=== PATIENT | female | born 1990 | race Caucasian/White ===

== ENCOUNTER 2023-11-01 06:37 | Emergency (ER) | payer OTHER, SELFPAY ==
[2023-11-01 06:41] VITALS: BP 107/82; PULSE 77; RESP 22; TEMP 36.7; O2SAT 100
[2023-11-01 06:46] VITALS: O2SAT 100
--- NOTE | 2023-11-01 06:46 | ED.ALLEREA ---
HPI - Allergic Reaction General Chief complaint: Allergic Reaction Stated complaint: allergic reaction History of Present Illness HPI narrative: Patient presents here with bee sting to her right eyebrow, had yesterday but the swelling has been steadily getting worse. Today she woke up and has been barely able to open her eye. No visual changes. Has been taking ibuprofen and Benadryl and icing her face at home Related Data Allergies Allergy/AdvReac Type Severity Reaction Status Date / Time bee venom protein (honey bee) Allergy Swelling Verified 11/01/23 06:48 cephalexin Allergy Nausea and Verified 11/01/23 06:48 Vomiting ciprofloxacin [From Cipro] Allergy Nausea Verified 11/01/23 06:48 sulfamethoxazole Allergy Nausea Verified 11/01/23 06:48 [From Bactrim] trimethoprim [From Bactrim] Allergy Nausea Verified 11/01/23 06:48 Review of Systems Review of Systems: All systems reviewed & are unremarkable except as noted in HPI and below Exam Narrative: EXAMINATION OF ORGAN SYSTEMS/BODY AREAS: Constitutional: Vital signs per nursing GENERAL:[No acute distress, non-toxic appearing.] HEAD: Normal with no signs of head trauma. EYES: EOMI, periorbital swelling, visual acuity intact ENT: Swelling to right side of face; no swelling of lips or tongue. Normal voice LUNGS: Nonlabored breathing. HEART: [Regular rate and rhythm] ABD: [Soft], [nontender to palpation] EXT: Normal range of motion SKIN: [No rashes or lesions.] NEURO: [Alert and oriented x 3. No gross focal sensory or strength deficits.] PSYCH: Normal affect Course Vital Signs Vital signs: Vital Signs Temperature 98.0 F 11/01/23 06:41 Pulse Rate 77 11/01/23 06:41 Respiratory Rate 22 H 11/01/23 06:41 Blood Pressure 107/82 11/01/23 06:41 Pulse Oximetry 100 11/01/23 06:41 Oxygen Delivery Room Air 11/01/23 06:41 Temperature 98.0 F 11/01/23 06:41 Pulse Rate 77 11/01/23 06:41 Respiratory Rate 22 H 11/01/23 06:41 Blood Pressure 107/82 11/01/23 06:41 Pulse Oximetry 100 11/01/23 06:46 Oxygen Delivery Room Air 11/01/23 06:46 MDM - Allergic Reaction MDM Narrative Medical decision making narrative: MEDICAL DECISION MAKING AND COURSE IN THE ED WITH INTERPRETATION/REVIEW OF DIAGNOSTIC STUDIES: Electronic medical record was reviewed. Patient presented to the ED with a complaint of allergic reaction to bee sting right eyebrow with face swelling. Vitals [were within acceptable limits]. Physical exam revealed [swelling around her right face without evidence of airway compromise, abdominal tenderness, or anaphylaxis; no vision changes, normal EOMI]. [Patient was given Toradol, steroids]. She has not had worsening of symptoms here and is stable for discharge and will go home with loratidine, epipen rx, and prednisone, and followup with PCP, return for further issues. Patient verbalizes understanding. I have asked her to continue using ice and benadryl as much as she can tolerate, and to watch out for any vision changes or difficulty moving her eye or angioedema or anything else concerning. Patient agreeable to this Discharge Plan Discharge Clinical Impression: Allergic reaction to bee sting Patient Disposition: Home, Self-Care Condition: Stable Instructions: Antibiotic Form, Insect Bite or Sting (ED), General Allergic Reaction (ED) Additional Instructions: Continue to ice your face, and continue to take the ibuprofen and Benadryl for your swelling, and start the steroids. If you start noticing any changes to her vision or anything else very concerning, come back to the hospital. Prescriptions: New prednisone 20 mg tablet 40 mg PO DAILY 5 Days Qty: 10 0RF ibuprofen 600 mg tablet 600 mg PO TID PRN (Reason: fever or pain) Qty: 30 0RF loratadine 10 mg tablet 10 mg PO DAILY Qty: 30 0RF epinephrine [EpiPen] 0.3 mg/0.3 mL auto-injector 0.3 mg IM Q5-15M PRN (Reason: anaphylaxis) Qty: 2
[2023-11-01] MEDS: predniSONE 20 MG TABLET 40 MG PO (06:49)
[2023-11-01] MEDS: KETOROLAC 30 MG/ML VIAL (*BKC) 15 MG IM (06:52)
[2023-11-01 07:09] VITALS: BP 109/71; PULSE 75; RESP 16; O2SAT 100
== END 2023-11-01 07:11 | disposition home or self-care (01) ==
PROVIDERS: Emergency Provider Emergency Medicine; PCP Internal Medicine
DX: T63.441A Toxic effect of venom of bees, accidental (unintentional), initial encounter (principal)
CPT/HCPCS: 96372; 99283; J1885; J7512

== ENCOUNTER 2024-05-07 04:21 | Emergency (ER) | payer OTHER, SELFPAY ==
[2024-05-07] VITALS (7 sets, daily range): BP systolic 99–130; BP diastolic 55–64; PULSE 69–104; RESP 13–24; TEMP 36.1–36.8; O2SAT 97–100
--- NOTE | ~2024-05-07 | XR_ITS ---
Portable chest x-ray Comparison: None Clinical History: Seizure Findings: Lungs are clear, without focal consolidation or pleural effusion. Cardiomediastinal silho uette is unremarkable. Bones and soft tissues are unremarkable. Impression: Clear lungs. Reviewed, dictated and finalized at location M. MINER Impression: Clear lungs.
--- NOTE | ~2024-05-07 | CT_ITS ---
Non-contrast Head CT History: Seizure Technique: Axial non-contrast imaging of the brain was performed. Dose reduction technique was used on this scan by utilizing automated exposure control and iterative reconstruction technique. The dose -length product (DLP) was 681.00 mGy-cm. Findings: There is no evidence of intracranial hemorrhage, mass lesion, or acute infarct. Brain par enchyma appears normal. The ventricles and subarachnoid spaces are normal in size. The calvarium ap pears normal. The visualized paranasal sinuses and mastoid air cells are clear. Impression: No significant abnormality seen. Reviewed, dictated and finalized at location . OG DEVICE DESIGNER Impression: No significant abnormality seen.
--- NOTE | 2024-05-07 04:30 | ECG_ITS ---
Test Date: 2024-05-07 05:07:46 Measurements Intervals [place] Rate: 79 P: 49 MA: 176 QRS: 24 QRSD: 93 T: 35 QT: 361 QTc: 414 Interpretive Statements SINUS RHYTHM LOW QRS VOLTAGE IN PRECORDIAL LEADS [QRS DEFLECTION < 1.0 mV IN CHEST LEADS] No previous ECG available for comparison Electronically Signed On 05-07-2024 08:49:18 COMMUNICATIONS TECH by Larisa Mendoza M.D.
[2024-05-07 05:16] LABS: Basophils Percent Auto 0.5 % (0.2-1.2); Eosinophils Absolute Auto 0.1 K/mm3 (0-0.3); Eosinophils Percent Auto 1.4 % (0-4.4); Hematocrit 40.9 % (37.0-47.0); Hemoglobin 13.5 g/dL (12.0-15.0); Immature Granulocyte Absolute 0.02 K/mm3 (0.00-0.031); Immature Granulocyte Percent A 0.2 % (0-0.5); Lymphocytes Absolute Auto 1.57 K/mm3 (0.9-3.2); Lymphocytes Percent Auto 18.3 % (18.3-44.2); Mean Platelet Volume 10.8 fl (7.4-10.4); Monocytes Absolute Auto 0.8 K/mm3 (0.1-0.6); Monocytes Percent Auto 8.9 % (2.6-8.5); Neutrophils Absolute Auto 6.1 K/mm3 (1.3-6.7); Neutrophils Percent Auto 70.7 % (45.5-73.1); Platelet Count Result 258 k/mm3 (150-375); Red Blood Count 4.35 M/mm3 (4.2-5.4); Red Cell Distribution Width 12.7 % (11.5-14.5); White Blood Count 8.6 K/mm3 (4.5-10.0)
[2024-05-07] MEDS: PROCHLORPERAZINE EDISYLATE 10 MG/2 ML VIAL IV PUSH (05:22)
[2024-05-07] MEDS: diphenhydrAMINE HCl INJ 50 MG/ML VIAL 25 MG IV PUSH (05:24)
[2024-05-07 05:27] LABS: INR 0.9; Prothrombin Time 12.6 Seconds (11.1-14.7)
[2024-05-07] MEDS: MAGNESIUM SULF 2 GM/WATER 50ML 2 GM/50 ML BAG IVPB (05:27)
[2024-05-07 05:28] LABS: Partial Thromboplastin Time 24.1 Seconds (22.3-36.8)
[2024-05-07 05:29] LABS: Acetaminophen < 10 ug/mL (10-30); Ethanol < 10 mg/dL (<10); Salicylate < 1.0 mg/dL (2-20)
[2024-05-07] MEDS: SODIUM CHLORIDE 0.9% IV 1,000 ML 999 ML IV CONT ×2 (05:30→06:20)
[2024-05-07 05:31] LABS: Alanine Aminotransferase 22 U/L (6-35); Albumin Level 4.5 g/dL (3.5-5.1); Alkaline Phosphatase 68 U/L (38-126); Anion Gap 1 mmol/L (4-12); Aspartate Amino Transferase 26 U/L (14-36); Bilirubin,Total 0.3 mg/dL (0.2-1.3); Blood Urea Nitrogen 16 mg/dL (7-17); Calcium 9.4 mg/dL (8.4-10.2); Carbon Dioxide 30 mmol/L (22-30); Chloride 105 mmol/L (98-107); Estimated CRCL calculation 101 ml/min; Estimated Glomerular Filt Rate > 60; Glucose 110 mg/dL (65-110); Lactic Acid Reflex 1.4 mmol/L (0.7-2.0); Potassium 4.1 mmol/L (3.4-5.0); Sodium 136 mmol/L (137-145)
[2024-05-07 05:41] LABS: BEDSIDEPREGUCG Negative (Negative)
[2024-05-07 05:46] LABS: Add Urine Microscopic? NO; Appearance Urine Clear (Clear); Bilirubin Urine Negative (Negative); Blood Urine Negative (Negative); Color Urine Yellow (Yellow); Glucose Urine UA Negative (Negative); Ketones Urine Negative (Negative); Leukocyte Esterase Ur Negative LEU/UL (Negative); Nitrate Urine Negative (Negative); Protein Urine Negative (Negative); Specific Grav Ur 1.019 (1.001-1.035); Urobilinogen Urine 0.2 mg/dL (<2.0); pH Urine 7.5 (5.0-9.0)
--- NOTE | 2024-05-07 05:46 | ED.SEIZURE ---
HPI - Seizure General Chief Complaint: Seizure Stated Complaint: Sz Time Seen by Provider: 05/07/24 04:31 History of Present Illness HPI Narrative: 33-year-old female presenting to the emergency department via private vehicle accompanied by her . Her noted that in the middle night patient looked like she was having a seizure with foaming at the mouth, unresponsiveness, shaking of the bilateral upper extremities. They went to bed appropriately without any concerns and there were no recent injuries or illnesses. Patient herself had a postictal period and the laid the patient the ground who continued to shake for about 3-5 minutes. Seizure was self aborted and she had a brief postictal period of approximately 10-15 minutes before returning to consciousness and was able to verbalize albeit confused. Her mentation overall improved since her arrival here in the emergency department. She is at her baseline mentation and answering all questions appropriately. She is complaining of a headache and some nauseousness but denies any fever, chills, chest pain, shortness a breath, abdominal pain. No recent injuries or trauma. She denies any medication changes. She states that she does check her sugars at home even though she is not diabetic and noted that was low throughout the night in the 50's. She does not take any insulin or any kind medications for weight loss or any kind of injectables. Denies any recent stressors or regimen changes, no history of seizures or history of childhood epilepsy or any kind of febrile seizures in childhood. Related Data Allergies Allergy/AdvReac Type Severity Reaction Status Date / Time bee venom protein (honey bee) Allergy Swelling Verified 05/07/24 04:21 cephalexin Allergy Nausea and Verified 05/07/24 04:21 Vomiting ciprofloxacin (From Cipro) Allergy Nausea Verified 05/07/24 04:21 sulfamethoxazole (From Allergy Nausea Verified 05/07/24 04:21 Bactrim) trimethoprim (From Bactrim) Allergy Nausea Verified 05/07/24 04:21 Review of Systems Review of Systems: As reviewed above in HPI Exam Narrative: GENERAL: [Well-appearing, well-nourished, and in no acute distress.] HEAD: [Normocephalic, atraumatic.] EYES: [PERRLA and EOMI.] ENT: Nares clear, no rhinorrhea or epistaxis. Mucous membranes moist. NECK: Supple. CHEST: Normal respiratory effort HEART: [Regular rate and rhythm]. No murmur heard. [Normal peripheral pulses.] ABDOMEN: [Soft, nondistended], [nontender], [No rigidity or guarding] EXTREMITIES: Normal range of motion. [No edema.] SKIN: Warm, dry, no rash. NEURO: [No focal deficits]. Alert and oriented [x3.] Normal strength and sensation throughout both arms and legs. Answering all questions appropriately. No ataxia, extraocular movements are full, no nystagmus. PSYCH: [Normal mood and affect.] Course Vital Signs Vital signs: Vital Signs Temperature 36.1 C L 05/07/24 04:25 Pulse Rate 97 05/07/24 04:25 Respiratory Rate 20 05/07/24 04:25 Blood Pressure 115/63 05/07/24 04:25 Pulse Oximetry 97 05/07/24 04:25 Oxygen Delivery Room Air 05/07/24 04:25 Temperature 36.1 C L 05/07/24 04:25 Pulse Rate 76 05/07/24 06:41 Respiratory Rate 13 05/07/24 06:41 Blood Pressure 104/55 L 05/07/24 06:41 Pulse Oximetry 100 05/07/24 06:41 Oxygen Delivery Room Air 05/07/24 05:36 MDM - Seizure MDM Narrative Medical decision making narrative: 33-year-old female with no history of seizures or childhood epilepsy presenting to the emergency department with sounds to be a witnessed seizure that lasted several minutes and had a postictal period. She is awake alert oriented at her baseline mentation presently and has no concerns aside from headache and mild nauseousness. Denies any recent injuries or illnesses, no provoking triggers to attribute to her seizure activity today and she went to bed normally yesterday. She has an unremarkable examination with normal vital signs without any fever, hypoxia, tachypnea, tachycardia or blood pressure concerns. Unremarkable neurological assessment and she is at her baseline mentation presently which is normal. Given this is a first-time seizure we did order a broad workup including a CT head, chest x-ray, EKG, electrolyte profile, CMP, test, urine drug screen, toxicological panel. Given patient's return to baseline mentation overall well appearance about her with no significant triggers or suspected epilepsy I believe she would be able to be discharged home upon completion workup if nothing acute is to be found. I informed the family of this plan of care and we went ahead with workup. Patient was re-evaluated frequently and had improvement in her headache after medications and fluids. I went over the lab results in the imaging results with the patient and the at bedside and although she does very reassuring workup and no acute findings or triggers that I could identify her assessment I believe she would benefit from an outpatient neurology evaluation given that her clinical presentation based on the 's recollection of events raise much sounds like a first-time seizure. I have very low suspicion that she is susceptible for recurrence of her seizure given her unremarkable workup and no acute findings today and I discussed this with the family and the patient as well. Ultimately after a multiple hour observation here in the emergency department without any recurrence of her symptoms and clinical improvement with unremarkable workup and stable vitals I believe she is stable for discharge home with outpatient Neurology follow-up instructions. I discussed this with the family and the patient and they were agreeable with this plan of care and felt comfortable going home with this plan in mind. I gave them strict return precautions including any recurrence of the seizure any new or worsening symptoms or any other concerns that they have and they can always get repeat evaluation here in the emergency department. Will provide neurology outpatient resources and follow-up instructions and they are stable for discharge at this time. Medical Records Attestation: I reviewed the patient's medical records. Lab Data Attestation: I reviewed the patient's lab results. Lab results narrative: No leukocytosis, normal electrolytes, negative test, negative toxicological screen, normal renal and hepatic function panel. 05/07/24 05:10 05/07/24 05:10 Labs: Lab Results 05/07/24 05/07/24 Range/Units 05:10 05:36 WBC 8.6 (4.5-10.0) K/mm3 RBC 4.35 (4.2-5.4) M/mm3 Hgb 13.5 (12.0-15.0) g/dL Hct 40.9 (37.0-47.0) % MCV 94.0 (80-100) fl MCH 31.0 (26-34) pg MCHC 33.0 (32-36) g/dl RDW 12.7 (11.5-14.5) % Plt Count 258 (150-375) k/mm3 MPV 10.8 H (7.4-10.4) fl Immature Gran % (Auto) 0.2 (0-0.5) % Neut % (Auto) 70.7 (45.5-73.1) % Lymph % (Auto) 18.3 (18.3-44.2) % [place] % (Auto) 8.9 H (2.6-8.5) % Eos % (Auto) 1.4 (0-4.4) % Baso % (Auto) 0.5 (0.2-1.2) % Lymph # (Auto) 1.57 (0.9-3.2) K/mm3 [place] # (Auto) 0.8 H (0.1-0.6) K/mm3 Eos # (Auto) 0.1 (0-0.3) K/mm3 Baso # (Auto) 0.0 (0.0-0.1) K/mm3 Abs Immat Gran (auto) 0.02 (0.00-0.031) K/mm3 Absolute Neuts (auto) 6.1 (1.3-6.7) K/mm3 Absolute Nucleated RBC 0.000 (0.0-0.012) K/mm3 Nucleated RBC % 0.0 (0.0-0.2) % PT 12.6 (11.1-14.7) Seconds INR 0.9 APTT 24.1 (22.3-36.8) Seconds Sodium 136 L (137-145) mmol/L Potassium 4.1 (3.4-5.0) mmol/L Chloride 105 (98-107) mmol/L Carbon Dioxide 30 (22-30) mmol/L Anion Gap 1 L (4-12) mmol/L BUN 16 (7-17) mg/dL Creatinine 0.70 (0.7-1.0) mg/dL Estim Creat Clear Calc 101 ml/min Estimated GFR > 60 (59 - ) Glucose 110 (65-110) mg/dL Lactic Acid 1.4 (0.7-2.0) mmol/L Calcium 9.4 (8.4-10.2) mg/dL Total Bilirubin 0.3 (0.2-1.3) mg/dL AST 26 (14-36) U/L ALT 22 (6-35) U/L Alkaline Phosphatase 68 (38-126) U/L Total Creatine Kinase 138 H (30-135) U/L Total Protein 7.0 (6.3-8.2) g/dL Albumin 4.5 (3.5-5.1) g/dL TSH 2.570 (0.465-4.680) uIU/mL Urine Color Yellow (Yellow) Urine Appearance Clear (Clear) Urine pH 7.5 (5.0-9.0) Ur Specific [place] 1.019 (1.001-1.035) Urine Protein Negative (Negative) mg/dL Urine Glucose (UA) Negative (Negative) mg/dL Urine Ketones Negative (Negative) mg/dL Ur Blood (Man) Negative (Negative) Urine Nitrate Negative (Negative) Urine Bilirubin Negative (Negative) Urine Urobilinogen 0.2 (<2.0) mg/dL Leukocyte Esterase Rfl Negative (Negative) ANETTE/UL POC Urine HCG, Qual Negative (Negative) Salicylates < 1.0 L (2-20) mg/dL Urine Opiates Screen Negative (Negative) Urine Methadone Screen Negative (Negative) Acetaminophen < 10 L (10-30) ug/mL Ur Barbiturates Screen Negative (Negative) Ur Phencyclidine Scrn Negative (Negative) Ur Amphetamine Screen Negative (Negative) U Benzodiazepines Scrn Negative (Negative) Urine Cocaine Screen Negative (Negative) U Cannabinoids Screen Positive A (Negative) Ethyl Alcohol < 10 (<10) mg/dL Imaging Data Attestation: I personally reviewed and interpreted this imaging study as follows: My impression: Impressions Chest X-Ray 05/07/24 06:47 Impression: Clear lungs. Head CT 05/07/24 06:47 Impression: No significant abnormality seen. Discharge Plan Discharge Clinical Impression: Seizure Patient Disposition: Home, Self-Care Condition: Stable Instructions: Antibiotic Form, New-Onset Seizure in Adults (ED) Additional Instructions: Your workup today is very reassuring and I do not have any evidence that there is a trigger for your seizure and you have a low likelihood of having any kind of recurrence however we do need her to follow-up with the neurologist on outpatient basis which will refer you to. If you have any recurrence or any new or worsening concerns at any time please seek re-evaluation but at this time your stable for discharge. Please refrain from operating motor vehicles until cleared by Neurology or your regular doctor. Patient Language: Hebrew Prescriptions: No Action prednisone 20 mg tablet 40 mg PO DAILY 5 Days Qty: 10 0RF ibuprofen 600 mg tablet 600 mg PO TID PRN (Reason: fever or pain) Qty: 30 0RF loratadine 10 mg tablet 10 mg PO DAILY Qty: 30 0RF epinephrine [EpiPen] 0.3 mg/0.3 mL auto-injector 0.3 mg IM Q5-15M PRN (Reason: anaphylaxis) Qty: 2 0RF Rx Instructions: do not exceed 3 doses per episode Follow-up/Referrals: Gretel,Gadiel Abarca MD [Primary Care Provider] - Manny Stephenson MD [Physician] - 3 Days (First-time seizure, adult onset) Juan Fuentes MD [Physician] - 3 Days (First-time seizure, adult onset) Time of Disposition: 07:55
[2024-05-07 05:52] LABS: Creatine Kinase 138 U/L (30-135)
[2024-05-07 06:03] LABS: Amphetamine Screen Urine Negative (Negative); Barbiturate Screen Urine Negative (Negative); Benzodiazepines Screen Urine Negative (Negative); Cannabinoid Screen Urine Positive (Negative); Cocaine Screen Urine Negative (Negative); Methadone Screen Urine Negative (Negative); Opiate Screen Urine Negative (Negative); Phencyclidine Screen Urine Negative (Negative)
--- NOTE | 2024-05-07 07:19 | PC.NURSE ---
Assumed care of pt. waiting on dispo
--- OUTSIDE RECORDS SUMMARY | 2024-05-11 14:52 | XMS_ITS | Referral Summary ---
Author Organization [facility] Address [address] [place] [address] Care Team Providers Care Psychic Reader Name Role Phone Gadiel Majano MD Primary Care Provider + Kishorlizandrosharishilo Niki Katherin DO Unavailable [phone] Allergies Active Allergy Reactions Criticality Noted Date Comments Cephalexin Nausea And Vomiting Low 09/02/2011 Ciprofloxacin Nausea And Vomiting Low 09/02/2011 Nitrofurantoin Nausea & Vomiting Low 09/22/2021 Sulfa (Sulfonamide Antibiotics) Nausea & Vomiting Low 09/22/2021 Medications miSOPROStoL (CYTOTEC) 200 mcg tablet 2 tablets buckel at bedtime the evening prior to procedure 2 tablet 4 Active Additional Information Patient not taking.Reported on 07/19/2023 lactic uabc-[id number]-fhq assium (Phexxi) 1.8-1-0.4 % gel vaginal gel Insert 5 g into the vagina as needed (insert into vagina prior to intercourse) 60 g 3 4 Active Additional Information Patient not taking.Reported on 08/16/2023 ibuprofen (ADVIL,MOTRIN) 600 mg tablet Take 1 tablet (600 mg total) by mouth every 6 (six) hours as needed for pain 20 tablet 4 Active Additional Information Patient not taking.Reported on 08/16/2023 Active Problems Problem Noted Date Diagnosed Date Tear of ulnar collateral ligament of left elbow 11/30/2016 Flexion contracture of left elbow 11/30/2016 Neuritis of left ulnar nerve 11/30/2016 Social History Tobacco Use Types Packs/Day Years Used Date Smoking Tobacco: Former Cigarettes Passive Smoke Exposure: Past Smokeless Tobacco: Never Tobacco Cessation:Counseling Given: Not Answered Alcohol Use Standard Drinks/Week Comments No 0 (1 standard drink = 0.6 oz pur e alcohol) Personal Safety Answer Date Recorded Getting School Help Needed Not on file 06/17 Comments No Sex and Gender Information Value Date Recorded Sex Assigned at Not on file Legal Sex 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 FINANCIAL SERVICES SPECIALIST Gender Identity Not on file Sexual Orientation Not on file Last Filed Vital Signs Vital Sign Reading Time Taken Comments Blood Pressure 115/84 08/16/2023 1:58 PM CDT Pulse 73 05/30/2022 1:45 PM FINANCIAL SERVICES SPECIALIST Temperature 36.5 ??C (97.7 ??F) 05/30/2022 11:[address] Respiratory Rate 15 05/30/2022 1:45 PM FINANCIAL SERVICES SPECIALIST Oxygen Saturation 100% 05/30/2022 1:45 PM FINANCIAL SERVICES SPECIALIST Inhaled Oxygen Concentration - - Weight 84.4 kg (186 lb) 08/16/2023 1:58 PM CDT Height 165.1 cm (5' 5 ) 08/16/2023 1:58 PM CDT Body Mass Index 30.95 08/16/2023 1:58 PM CDT Plan of Treatment Not on file Procedures Procedure Name Priority Date/Time Associated Diagnosis Comments THINPREP IMAGING PAP AND HPV MRNA E6/E7 REFLEX HPV 16,18/45 Routine 07/12/2023 4:23 PM FINANCIAL SERVICES SPECIALIST Encounter for well woman exam from Last 3 Months or Most Recently Relevant to Health Maintenance Results * ThinPrep(R) Imaging Pap and HPV mRNA E6/E7 Reflex HPV 16,18/45 (07/12/2023 4:23 PM FINANCIAL SERVICES SPECIALIST) CLINICAL INFORMATION: [facility] Comment:None given LMP [facility] Comment:NONE GIVEN Previous Pap [facility] Comment:NONE GIVEN Prev. Bx [facility] Comment:NONE GIVEN SOURCE: [facility] Comment:None given Pap, specimen adequacy [facility] Comment: Satisfactory for evaluation. Endocervical/transformation zone component present. Age and/or menstrual status not provided HPV interp [facility] Comment: Cytology Results: Negative for intraepithelial lesion or malignancy. COMMENTS [facility] Comment: This Pap test has been evaluated with computer assisted technology. Concrete Pile Driver Operator [facility] Comment: TLS, CT(ASCP) CT Screening Location: [address] [address] Comment [facility] Comment: EXPLANATORY NOTE: The Pap is a screening test for cervical cancer. It is not a diagnostic test and is subject to false negative and false positive results. It is most reliable when a satisfactory sample, regularly obtained, is submitted with relevant clinical findings and history, and when the Pap result is evaluated along with historic and current clinical information. Human papillomavirus RNA, High Risk E6/E7 Not Detected Not Detected [facility] Comment: Methodology: Critical Care Paramedic-Mediated Amplification This assay detects E6/E7 viral messenger RNA (mRNA) from 14 high-risk HPV types (16,18,31,33,35,39,45,51,52,56,58,59,66,68). Cervical sources are required for HPV testing. If a vaginal source from a patient who has had a total hysterectomy with removal of cervix was submitted, please contact the testing laboratory for alternative testing options. For additional information, please refer to http://education.Veracyte/faq/DCO598x1 (This link if provided for information/ educational purposes only.) Swab 07/12/2023 4:23 PM FINANCIAL SERVICES SPECIALIST 07/13/2023 4:57 AM FINANCIAL SERVICES SPECIALIST Erica Nayak NP LAB CYTOLOGY ORDERABLES Final Result [address] [place] [address] [facility] [address] [phone] from Last 3 Months or Most Recently Relevant to Health Maintenance Insurance [facility] CHOICE [employer] [facility] HMO/PPO Address: [address] [address] [place] [address] [facility] CHOICE [employer]US [facility] HMO/PPO Address: [address] [address] [place] [address] [facility] CHOICE PLUS [facility] H[facility]/PPO Address: [address] [address] [place] [address] ANTH ACCESS CHOICE Care Teams Psychic Reader Relationship Specialty Start Date End Date Gadiel Majano MD [address] [place] [address] PCP - General 07/06/16 [place] [address] [place] [address] Consulting Physician Obstetrics and Gynecology 07/26/23
--- OUTSIDE RECORDS SUMMARY | 2024-05-11 14:52 | XMS_ITS | Referral Summary ---
Author Organization [facility] Address [address] [place] [address] Care Team Providers Care Rubbish Collection Supervisor Name Role Phone Unavailable Primary Care Provider Unavailabl e Source Comments [facility],non-owned Affiliates and Associated Physician Practices is amultiple site organization consisting of ambulatory clinics and hospital sitesin [place], [place], [place] and [place]. This disclosure is being madepursuant to the Care Everywhere program and may not contain all information available regarding this patient. Last updated 18.[facility] Social History Tobacco Use Types Packs/Day Years Used Date Smoking Tobacco: Never Assessed Sex and Gender Information Value Date Recorded Sex Assigned at Not on file Gender Identity Not on file Sexual Orientation Not on file Plan of Treatment Not on file
--- OUTSIDE RECORDS SUMMARY | 2024-05-11 14:52 | XMS_ITS | Encounter Summary ---
Author Organization [facility] Address [address] [place] [address] Care Team Providers Care Support Specialist Name Role Phone Gadiel Majano MD Primary Care Provider + Encounter Details Date Type Department Care Team (Late st Contact Info) Description 07/23/2023 Documentation [facility] [address] [phone] Zohra Rodriguez Social History Tobacco Use Types Packs/Day Years Used Date Smoking Tobacco: Former Cigarettes Passive Smoke Exposure: Past Smokeless Tobacco: Never Alcohol Use Standard Drinks/Week Comments No 0 (1 standard drink = 0.6 oz pur e alcohol) Personal Safety Answer Date Recorded Getting School Help Needed Not on file 06/17 Comments No Sex and Gender Information Value Date Recorded Sex Assigned at Not on file Legal Sex 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 FIRST AID TEACHER Gender Identity Not on file Sexual Orientation Not on file documented as of this encounter Progress Notes * Zohra Rodriguez - 07/23/2023 11:22 AM CST Surgery has been moved to 10am on 07/27/23. T AID TEACHER documented in this encounter Plan of Treatment Not on file documented as of this encounter Visit Diagnoses Not on filedocumented in this encounter Care Teams Support Specialist Relationship Specialty Start Date End Date Gadiel Majano MD [address] [place] [address] [address] [phone] PCP - General 07/06/16 documented as of this encounter
--- OUTSIDE RECORDS SUMMARY | 2024-05-11 14:52 | XMS_ITS | Encounter Summary ---
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 Encounter Details Date Type Department Care Team (Latest Contact Info) Description 07/19/2023 2:00 PM DENTAL ASSOCIATE Procedure visit [facility] [address] [phone] Niki Jones, [address] [place] [address] Intrauterine contraceptive device threads lost, initial encounter (Primary Dx) Social History Tobacco Use Types Packs/Day Years [...] on file Legal Sex 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 DENTAL ASSOCIATE Gender Identity Not on file Sexual Orientation Not on file documented as of this encounter Last Filed Vital Signs Vital Sign Reading Time Taken Comments Blood Pressure 112/78 07/19/2023 2:20 PM DENTAL ASSOCIATE Pulse - - Temperature - - Respiratory Rate - - Oxygen Saturation - - Inhaled Oxygen Concentration - - Weight 84.8 kg (187 lb) 07/19/2023 2:20 PM DENTAL ASSOCIATE Height 165.1 cm (5' 5 ) 07/19/2023 2:20 PM DENTAL ASSOCIATE Body Mass Index 31.12 07/19/2023 2:20 PM DENTAL ASSOCIATE documented in this encounter Progress Notes * Niki Jones DO - 07/19/2023 2:00 PM CST Problem Visit SUBJECTIVE HPI: Trinh Corral is a 32 y.o. female who presents for disposition of IUD strings. Rv'd TVUSwith patient, IUD appears in appropriate position in endometrial cavity. Patient has discomfort with sitting or exercising since attempting to remove IUD in office. Review of Systems: Review of systems negative except for pertinent positive and negative in HPI OBJECTIVE Physical Exam: BP 112/78 Ht 165.1 cm (5' 5 ) Wt 187 lb (84.8 kg) BMI 31.12 kg/m?? General: Well appearing, No pain or distress, well nourished Neck: Supple Respiratory: Respirations unlabored Gastrointestinal: soft, non-tender abdomen, no masses palpable Cervix: IUD 3mm from os with cervical tissue around IUD strings Extremities: no cyanosis or clubbing or edema Musculoskeletal: no obvious joint deformities Skin: no obvious rash or bruising Psychiatric: normal affect Neurologic: awake/alert, no focal deficits ASSESSMENT / PLAN Trinh Corral is a 32 y.o. female IUD strings disposition Discuss attempting to remove IUD in office vs with sedation. Patient declined removal today. Niki Jones DO 07/26/2023 AL ASSOCIATE documented in this encounter Plan of Treatment Not on file documented as of this encounter Visit Diagnoses Diagnosis Intrauterine contraceptive device threads lost, initial encounter- Primary documented in this encounter Care Teams Export Documents Clerk Relationship Specialty Start Date End Date Gadiel Majano MD [address] [facility] [place] [address] PCP - General 07/06/16 documented as of this encounter
--- OUTSIDE RECORDS SUMMARY | 2024-05-11 14:52 | XMS_ITS | Encounter Summary ---
Author Organization [facility] Address [address] [place] [address] Care Team Providers Care Casing Crew Pusher Name Role Phone Gadiel Majano MD Primary Care Provider + Niki Jones DO Unavailable [phone] Reason for Visit * Reason Onset Date Comments Excision of cervical tissue and IUD removal-DPSS C, 07/27/23 07/29/2023 Encounter Details Date Type Department Care Team (Late st Contact Info) Description 07/29/2023 Documentation [facility] [address] [phone] [place] [address] [place] [address] Excision of cervical tissue and IUD removal-[facility]PSSC, 07/27/23 Social History Tobacco Use Types Packs/Day Years [...] on file 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 Reviewed procedure and risks at length with patient. Answered all questions. Verbal and written consent given. Excision of cervical tissue and IUD removal. [id number] cervical tissue incasing IUD strings. No complications. RTO in 2 weeks. L FABRICATING SUPERVISOR documented in this encounter Plan of Treatment Not on file documented as of this encounter Visit Diagnoses Not on filedocumented in this encounter Care Teams Casing Crew Pusher Relationship Specialty Start Date End Date Gadiel Majano MD [address] [place] [phone] PCP - General 07/06/16 [place] [address] [place] [address] Consulting Physician Obstetrics and Gynecology 07/26/23 documented as of this encounter
--- OUTSIDE RECORDS SUMMARY | 2024-05-11 14:52 | XMS_ITS | Encounter Summary ---
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 Gender Identity Not on file Sexual Orientation Not on file documented as of this encounter Ordered Prescriptions Prescription Sig Dispense Quantity Refills Last Filled Start Date End Date ibuprofen (ADVIL,MOTRIN) 600 mg tablet Take 1 tablet (600 mg total) by mouth every 6 (six) hours as needed for pain 20 tablet 07/27/2023 lactic ncjh-imbppf-poahmkq um (Phexxi) 1.8-1-0.4 % gel vaginal gel Insert 5 g into the vagina as needed (insert into vagina prior to intercourse) 60 g 3 07/27/2023 documented in this encounter Plan of Treatment Not on file documented as of this encounter Visit Diagnoses Not on filedocumented in this encounter Discontinued Medications Medication Sig Discontinue Reason Start Date End Da te lactic iyks-lvrubj-bfzshmdua (Phexxi) 1.8-1-0.4 % gel vaginal gel Insert 5 g into the vagina as needed (insert into vagina prior to intercourse) Reorder 07/12/2023 07/27/2023 documented as of this encounter Care Teams Emergency Care Attendant Relationship Specialty Start Date End Date Gadiel Majano MD [address] [place] [phone] PCP - General 07/06/16 [place] [address] [place] [address] Consulting Physician Obstetrics and Gynecology 07/26/23 documented as of this encounter
--- OUTSIDE RECORDS SUMMARY | 2024-05-11 14:52 | XMS_ITS | Patient Health Summary ---
Author Organization [facility] Address [address] [place] [address] Care Team Providers Care Rehab Nurse Name Role Phone Unavailable Primary Care Provider Unavailabl e Note from [facility],non-owned Affiliates and Associated Physician Practices is amultiple site organization consisting of ambulatory clinics and hospital sitesin [place], [place], [place] and [place]. This disclosure is being madepursuant to the Care Everywhere program and may not contain all information available regarding this patient. Last updated 18.[facility] Social History Tobacco Use Types Packs/Day Years Used Date Smoking Tobacco: Never Assessed Sex and Gender Information Value Date Recorded Sex Assigned at Not on file Gender Identity Not on file Sexual Orientation Not on file Procedures * DERMATOPATHOLOGY(Performed 11/16/2019) Results * DERMATOPATHOLOGY (11/16/2019 12:00 AM CDT) Case Report Dermatopathology Report ? Case: [id number] ? Authorizing Provider: ??Nano Cohen MD ?? Collected: ? 11/16/2019 12:00 AM ? Ordering Location: ? [facility] ?Received: ?11/17/2019 02:38 PM ? Pathologist: ? Katherin Rodriguez MD ? Specimens: ?? A) - Skin, right anterior lateral proximal upper arm ? B) - Skin, right lateral superiior chest ? C) - Skin, left lateral superior chest ? 0 3:03 PM CDT DERMATOPATHOLOGY LABORATORY Final Diagnosis Specimen A. SKIN, right anterior lateral proximal upper arm: LENTIGO SIMPLEX (L81.4) Specimen B. SKIN, right lateral superiior chest: JUNCTIONAL MELANOCYTIC NEVUS, IRRITATED (D22.5) (see microscopic description) Specimen C. SKIN, left lateral superior chest: JUNCTIONAL MELANOCYTIC NEVUS, IRRITATED (D22.5) (see microscopic description) 0 3:03 PM CDT DERMATOPATHOLOGY LABORATORY Clinical History A-C: Atypical nevi. 0 3:03 PM CDT DERMATOPATHOLOGY LABORATORY Gross Description Specimen A: Received is one formalin filled container labeled with the patient's name and designated right anterior lateral proximal upper arm. The specimen consists of a punch biopsy measuring 3x3x4 mm. Jar 0. Specimen B: Received is one formalin filled container labeled with the patient's name and designated right lateral superiior chest. The specimen consists of a punch biopsy measuring 3x3x2 mm. Jar 0. Specimen C: Received is one formalin filled container labeled with the patient's name and designated left lateral superior chest. The specimen consists of a punch biopsy measuring 3x3x3 mm. Jar 0. 0 3:03 PM CDT DERMATOPATHOLOGY LABORATORY Microscopic Description Specimen A. SKIN, right anterior lateral proximal upper arm: There is orthokeratosis. There is increased pigmentation along the basal layer of the epidermis, especially at the base of the elongated rete ridges. A mildly increased number of melanocytes is seen along the basal layer. Specimen B. SKIN, right lateral superiior chest: There are nests of melanocytes at the dermal-epidermal junction. There is melanin pigment in the stratum corneum. Additional deeper sections were obtained and reviewed. Specimen C. SKIN, left lateral superior chest: There are nests of melanocytes at the dermal-epidermal junction. There is melanin pigment in the stratum corneum. Additional deeper sections were obtained and reviewed. 0 3:03 PM CDT DERMATOPATHOLOGY LABORATORY Disclaimer An external and internal positive and negative controls are appropriate for the histochemical, immunohistochemical and immunofluorescence stain(s) in this case (if any), except where stated explicitly. The performance characteristics of the stain(s) cited in this report were developed and its performance characteristic determined by the Dermatopathology Laboratory at [facility], directed by Dr. Rima Hackett. These tests need not be, and therefore are not, approved by the [place] Food and Drug Administration. The tests are used for clinical purposes. Billing Codes Specimen Charges Stain Charges 47503 25334 23836 1 1 1 0 3:03 PM CDT DERMATOPATHOLOGY LABORATORY Embedded Images 0 3:03 PM CDT DERMATOPATHOLOGY LABORATORY Pathology/Cytology TISSUE SPECIMEN FROM SKIN / Unknown 11/16/2019 11/17/2019 2:38 PM CDT Miscellaneous samples (specimen) TISSUE SPECIMEN FROM SKIN / Unknown 11/16/2019 11/17/2019 2:38 PM CDT Miscellaneous samples (specimen) TISSUE SPECIMEN FROM SKIN / Unknown 11/16/2019 11/17/2019 2:38 PM CDT Nano Cohen MD LAB - PATHOLOGY/C YTOLOGY ORDERABLES DERMATOPATHOLOGY LABORATORY [facility] - Department of Dermatology Boat Tender [place]/[address] [phone]
--- OUTSIDE RECORDS SUMMARY | 2024-05-11 14:52 | XMS_ITS | Encounter Summary ---
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 PSYCHOLOGIST documented in this encounter Plan of Treatment Not on file documented as of this encounter Visit Diagnoses Not on filedocumented in this encounter Care Teams Radiological Equipment Specialist Relationship Specialty Start Date End Date Gadiel Majano MD [address] [place] [address] PCP - General 07/06/16 documented as of this encounter
--- OUTSIDE RECORDS SUMMARY | 2024-05-11 14:52 | XMS_ITS | Encounter Summary ---
Author Organization [facility] Address [address] [place] [address] Care Team Providers Care Staff Accountant Name Role Phone Gadiel Majano MD Primary Care Provider + Encounter Details Date Type Department Care Team (Late st Contact Info) Description 07/13/2023 Telephone [facility] [address] [phone] Veronica Krishna RN Social History Tobacco Use Types Packs/Day Years [...] on file Legal Sex 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 CLERK GUIDE Gender Identity Not on file Sexual Orientation Not on file documented as of this encounter Miscellaneous Notes * Telephone Encounter - Veronica Krishna RN - 07/13/2023 9:04 AM CLERK GUIDE Pt is calling with questions about cytotec and IUD removal. Questions answered and reviewed how to take cytotec and what to expect. Pt encouraged to call back with any further questions. K GUIDE documented in this encounter Plan of Treatment Not on file documented as of this encounter Visit Diagnoses Not on filedocumented in this encounter Care Teams Staff Accountant Relationship Specialty Start Date End Date Gadiel Majano MD [address] [place] [address] PCP - General 07/06/16 documented as of this encounter
--- OUTSIDE RECORDS SUMMARY | 2024-05-11 14:52 | XMS_ITS | Encounter Summary ---
Author Organization [facility] Address [address] [place] [address] Care Team Providers Care Ep Tech Name Role Phone Gadiel Mjaano MD Primary Care Provider + Niki Jones DO Unavailable [phone] Reason for Visit * Reason Comments Follow-up Encounter Details Date Type Department Care Team (Latest Contact Info) Description 08/16/2023 2:00 PM CDT Office Visit [facility] [address] [phone] [place] [address] [place] [address] Intrauterine contraceptive device threads lost, subsequent encounter (Primary Dx) Social History Tobacco Use [...] on file 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 female who presents for post op visit. She had excision of cervical tissue to remove IUD at [facility] on 07/26. She had bleeding for one day. Minimal pain Review of Systems: Review of systems negative except for pertinent positive and negative in HPI OBJECTIVE Physical Exam: BP 115/84 Ht 165.1 cm (5' 5 ) Wt 186 lb (84.4 kg) BMI 30.95 kg/m?? General: Well appearing, No pain or distress, well nourished Neck: Supple Respiratory: Respirations unlabored Gastrointestinal: soft, non-tender abdomen, no masses palpable Cervix: well healed Extremities: no cyanosis or clubbing or edema Musculoskeletal: no obvious joint deformities Skin: no obvious rash or bruising Psychiatric: normal affect Neurologic: awake/alert, no focal deficits A forensic identification specialist was offered and declined ASSESSMENT / PLAN Trinh Corral is a 32 y.o. female Cervical tissue IUD removed Niki Jones DO 08/16/2023 documented in this encounter Plan of Treatment Not on file documented as of this encounter Visit Diagnoses Diagnosis Intrauterine contraceptive device threads lost, subsequent encounter- Primary documented in this encounter Care Teams Ep Tech Relationship Specialty Start Date End Date Gadiel Majano MD [address] [place] [address] PCP - General 07/06/16 [place] [address] [place] [address] Consulting Physician Obstetrics and Gynecology 07/26/23 documented as of this encounter
--- OUTSIDE RECORDS SUMMARY | 2024-05-11 14:52 | XMS_ITS | Clinical Summary ---
Author Organization [facility] Address [address] [facility] [place] [address] Care Team Providers Care Oil Sales And Service Rep Name Role Phone Unavailable Primary Care Provider Unavailabl e Source Comments [facility],non-owned Affiliates and Associated Physician Practices is amultiple site organization consisting of ambulatory clinics and hospital sitesin [place], [place], [place] and [place]. This disclosure is being madepursuant to the Care Everywhere program and may not contain all information available regarding this patient. Last updated 18.[facility] [employer] Social History Tobacco Use Types Packs/Day Years Used Date Smoking Tobacco: Never Assessed Sex and Gender Information Value Date Recorded Sex Assigned at Not on file Gender Identity Not on file Sexual Orientation Not on file Plan of Treatment Health Maintenance Due Date Last Done Comments PAP SMEAR 1990 HIV SCREENING 2005 HEPATITIS C SCREENING 08/19/2008 DTAP/TDAP/TD VACCINES (1 - Tdap) 2009 HEPATITIS B VACCINE (1 of 3 - 19+ 3-dose series) 2009 DEPRESSION SCREENING 05/24/2023 COVID-19 VACCINE (1 - 2023-2 5 season) 2024 INFLUENZA VACCINE (#1) 2024 ZOSTER VACCINE (1 of 2) 2040 HIB VACCINE Aged Out No longer eligi ble based on patient's age to complete this topic HPV VACCINE Aged Out No longer eligi ble based on patient's age to complete this topic MENINGOCOCCAL VACCINE Aged Out No kasey apolinar eligible based on patient's age to complete this topic PNEUMOCOCCAL VACCINE Aged Out No long er eligible based on patient[place] [address] NINO MARISCAL Personal/Famil y Other [address] [place] [address]
--- OUTSIDE RECORDS SUMMARY | 2024-05-11 14:52 | XMS_ITS | Encounter Summary ---
Author Organization [facility] Address [address] [place] [address] Care Team Providers Care Pediatric Psychologist Name Role Phone Gadiel Majano MD Primary Care Provider + Encounter Details Date Type Department Care Team (Late st Contact Info) Description 07/22/2023 Telephone [facility] [address] [phone] [place] [address] [place] [address] Social History Tobacco Use Types Packs/Day Years [...] on file Legal Sex 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 SENIOR PRINCIPAL Gender Identity Not on file Sexual Orientation Not on file documented as of this encounter Miscellaneous Notes * Telephone Encounter - Niki Jones DO - 07/22/2023 9:20 AM SENIOR PRINCIPAL LVM for patient OR PRINCIPAL documented in this encounter Plan of Treatment Not on file documented as of this encounter Visit Diagnoses Not on filedocumented in this encounter Care Teams Pediatric Psychologist Relationship Specialty Start Date End Date Gadiel Majano MD [address] [place] [address] PCP - General 07/06/16 documented as of this encounter
--- OUTSIDE RECORDS SUMMARY | 2024-05-11 14:52 | XMS_ITS | Encounter Summary ---
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 CLERK documented in this encounter Plan of Treatment Not on file documented as of this encounter Visit Diagnoses Not on filedocumented in this encounter Care Teams Sausage Wrapper Relationship Specialty Start Date End Date Gadiel Majano MD [address] [place] [address] PCP - General 07/06/16 documented as of this encounter
--- OUTSIDE RECORDS SUMMARY | 2024-05-11 14:52 | XMS_ITS | Encounter Summary ---
Author Organization [facility] Address [address] [facility] [place] [address] Care Team Providers Care Class C Driver Name Role Phone Unavailable Primary Care Provider Unavailabl e Encounter Details Date Type Department Care Team (Late st Contact Info) Description 11/17/2019 Lab Requisition [facility] [address] [facility] [place] [phone] [place] [address] [place] [address] Social History Tobacco Use Types Packs/Day Years Used Date Smoking Tobacco: Never Assessed Sex and Gender Information Value Date Recorded Sex Assigned at Not on file Gender Identity Not on file Sexual Orientation Not on file documented as of this encounter Plan of Treatment Not on file documented as of this encounter Procedures Procedure Name Priority Date/Time Associated Diagnosis Comments DERMATOPATHOLOGY Routine 11/16/2019 12:0 0 AM CDT documented in this encounter Results * DERMATOPATHOLOGY (11/16/2019 12:00 AM CDT) Case Report Dermatopathology Report ? Case: [id number] ? Authorizing Provider: ??Nano Cohen MD ?? Collected: ? 11/16/2019 12:00 AM ? Ordering Location: ? [facility] ?Received: ?11/17/2019 02:38 PM [...] characteristic determined by the Dermatopathology Laboratory at [facility], directed by Dr. Rima Hackett. These tests need not be, and therefore are not, approved by the [place] Food and Drug Administration. The tests are used for clinical purposes. Billing Codes Specimen Charges Stain Charges 82726 [id number] 1 1 1 0 3:03 PM CDT [...] LAB - PATHOLOGY/C YTOLOGY ORDERABLES DERMATOPATHOLOGY LABORATORY [facility] - Department of Dermatology [facility] [place] [facility] [phone] documented in this encounter Visit Diagnoses Not on filedocumented in this encounter
--- OUTSIDE RECORDS SUMMARY | 2024-05-11 14:52 | XMS_ITS ---
Author Name Génesis Mishra Address Unknown Phone tel: Organization Unknown Address Unknown Phone tel: Care Team Providers Care High Worker Name Role Phone Génesis Mishra Unavailable tel: Consultation Notes
--- OUTSIDE RECORDS SUMMARY | 2024-05-11 14:52 | XMS_ITS | Clinical Summary ---
Author Organization [facility] Address [address] [place] [address] Care Team Providers Care [employer] Hazmat Tanker Driver Name Role Phone Gadiel Majano MD Primary Care Provider + Kishorlizandrosharishilo Niki Katherin DO Unavailable [phone] Allergies Active Allergy Reactions Criticality Noted Date Comments Cephalexin Nausea And Vomiting Low 09/02/2011 Ciprofloxacin Nausea And Vomiting Low 09/02/2011 Nitrofurantoin Nausea & Vomiting Low 09/22/2021 Sulfa (Sulfonamide Antibiotics) Nausea & Vomiting Low 09/22/2021 Medications miSOPROStoL (CYTOTEC) 200 mcg tablet 2 tablets buckel at bedtime the evening prior to procedure 2 tablet 4 Active Additional Information Patient not taking.Reported on 07/19/2023 lactic mpyb-huiotb-iqi assium (Phexxi) 1.8-1-0.4 % gel vaginal gel [...] 11/30/2016 Neuritis of left ulnar nerve 11/30/2016 Surgical History Surgery Date Site/Laterality Comments TONSILLECTOMY Tonsillectomy OTHER SURGICAL HISTORY right neck lymph node removed for biopsy Family History Medical History Relation Name Comments Multiple myeloma Brother Bone cancer Mother Cancer Other 1 Family history of cancer; Diabetes Other 2 Family history of Diabetes mellitus; Relation Name Status Comments Brother Mother Other 1 Other 2 Social History Tobacco Use Types Packs/Day Years [...] on file Legal Sex 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 FIRE WATCHER Gender Identity Not on file Sexual Orientation Not on file Obstetrics History Para Term AB IAB SAB Ectopic Multiple Livin g Live Births 0 0 0 0 0 0 0 0 0 0 0 Last Filed Vital Signs Vital Sign Reading Time Taken Comments Blood Pressure 115/84 08/16/2023 1:58 PM CDT Pulse 73 05/30/2022 1:45 PM FIRE WATCHER Temperature 36.5 ??C (97.7 ??F) 05/30/2022 11:[address] Respiratory Rate 15 05/30/2022 1:45 PM FIRE WATCHER Oxygen Saturation 100% 05/30/2022 1:45 PM FIRE WATCHER Inhaled Oxygen Concentration - - Weight 84.4 kg (186 lb) 08/16/2023 1:58 PM CDT Height 165.1 cm (5' 5 ) 08/16/2023 1:58 PM CDT Body Mass Index 30.95 08/16/2023 1:58 PM CDT Plan of Treatment Health Maintenance Due Date Last Done Comments Depression Screening 1990 Hepatitis C Screening 1990 Varicella Vaccines (1 of 2 - 13+ 2-dose series) 08/25/2003 Hepatitis B Screening 2008 Covid-19 Vaccine (2023-2 5 season) 2024 08/26/2020, 08/05/2020 Influenza Vaccine (#1) 2024 2, 03/21/2015 Cervical Cancer Screening 07/12/20242023, 11/16/2022, 09/22/2021 Regular Well Visit/Exam 18-64 07/12/2024, 11/16/2022, 09/22/2021 DTaP/Tdap/Td Vaccine (3 - Td or Tdap) 01/06/2033 01/06/2023, 11/03/2012 HPV Vaccines Completed 10/04/2012, 10/27/2011, 09/02/2011 Pneumococcal vaccine <65 Aged Out No longer eligible based on patient's age to complete this topic Procedures Procedure Name Priority Date/Time Associated Diagnosis Comments THINPREP IMAGING PAP AND HPV MRNA E6/E7 REFLEX HPV 16,18/45 Routine 07/12/2023 4:23 PM FIRE WATCHER Encounter for well woman exam from Last 3 Months or Most Recently Relevant to Health Maintenance Results * ThinPrep(R) Imaging Pap and HPV mRNA E6/E7 Reflex HPV 16,18/45 (07/12/2023 4:23 PM FIRE WATCHER) CLINICAL INFORMATION: [facility] Comment:None given LMP [facility] Comment:NONE GIVEN Previous Pap [facility] Comment:NONE GIVEN Prev. Bx [facility] Comment:NONE GIVEN SOURCE: [facility] Comment:None given Pap, specimen adequacy [facility] Comment: Satisfactory for evaluation. Endocervical/transformation zone component present. Age and/or menstrual status not provided HPV interp [facility] Comment: Cytology Results: Negative for intraepithelial lesion or malignancy. COMMENTS [facility] Comment: This Pap test has been evaluated with computer assisted technology. Bankruptcy Processor [facility] Comment: TLS, CT(ASCP) CT Screening Location: [place] [address] Comment [facility] Comment: EXPLANATORY NOTE: The Pap is a [...] High Risk E6/E7 Not Detected Not Detected [facility] [employer] Comment: Methodology: Accounts Receivable Manager-Mediated Amplification This assay detects E6/E7 viral messenger RNA (mRNA) from 14 high-risk HPV types (16,18,31,33,35,39,45,51,52,56,58,59,66,68). Cervical sources are required for HPV testing. If a vaginal source from a patient who has had a total hysterectomy with removal of cervix was submitted, please contact the testing laboratory for alternative testing options. For additional information, please refer to http://education.StarChase/faq/TSO271e2 (This link if provided for information/ educational purposes only.) Swab 07/12/2023 4:23 PM FIRE WATCHER 07/13/2023 4:57 AM FIRE WATCHER Erica Nayak FURNITURE REFINISHER LAB CYTOLOGY ORDERABLES Final Result [facility] [address] [place] [address] [facility] [address] [place] [address] from Last 3 Months or Most Recently Relevant to Health Maintenance Insurance [facility] PLUS [facility] PLUS [facility] PLUS [facility] ACCESS CHOICE Care Teams Regional [employer] Hazmat Tanker Driver Relationship Specialty Start Date End Date [place] [address] PCP - General 07/06/16 [place] [address] [place] [address] Consulting Physician Obstetrics and Gynecology 07/26/23
--- OUTSIDE RECORDS SUMMARY | 2024-05-11 14:52 | XMS_ITS | Encounter Summary ---
Author Organization [facility] Address [address] [place] [address] Care Team Providers Care Weapons Designer Name Role Phone Gadiel Majano MD Primary Care Provider + Reason for Visit * Diagnostic Imaging (Routine) - Closed Specialty Diagnoses / Procedures Referred By Josie fitch Referred To Contact Diagnoses IUD check up [place] [address] [place] [address] Phone: tel: fax: [facility] Referral ID Status Reason Start Date Expiration Date Visits Re quested Visits Authorized [id number] Closed 07/12/2023 08/10/2024 1 1 Encounter Details Date Type Department Care Team (Late st Contact Info) Description 07/19/2023 1:40 PM FRAME AND SCRAP CRUSHER Ancillary Procedure [facility] [address] [place] [address] IUD check up Social History Tobacco Use Types Packs/Day Years [...] on file Legal Sex 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 FRAME AND SCRAP CRUSHER Gender Identity Not on file Sexual Orientation Not on file documented as of this encounter Plan of Treatment Not on file documented as of this encounter Procedures Procedure Name Priority Date/Time Associated Diagnosis Comments US TRANSVAGINAL Schedule Routine, Read Routine (OP Routine) 07/19/2023 1:39 PM FRAME AND SCRAP CRUSHER IUD check up documented in this encounter Results * US Transvaginal (07/19/2023 1:39 PM FRAME AND SCRAP CRUSHER) Endometrial Thickness 6.5 mm&millime ters VIEWPOINT Anatomical Region Laterality Modality Pelvis N/A Ultrasound 07/19/2023 1:54 PM FRAME AND SCRAP CRUSHER Impressions 07/22/2023 5:13 PM FRAME AND SCRAP CRUSHER IUD appropriately positioned. Narrative Procedure Note Niki Jones DO - 07/22/2023 IMPRESSION: IUD appropriately positioned. us Erica Nayak INVENTORY REPRESENTATIVE IMG US PROCEDURES Final Result documented in this encounter Visit Diagnoses Diagnosis IUD check up documented in this encounter Care Teams Weapons Designer Relationship Specialty Start Date End Date Gadiel Majano MD [address] [place] [phone] PCP - General 07/06/16 documented as of this encounter
--- OUTSIDE RECORDS SUMMARY | 2024-05-11 14:52 | XMS_ITS | Encounter Summary ---
Author Organization [facility] Address [address] [place] [address] Care Team Providers Care Sr Vice President Name Role Phone Gadiel Majano MD Primary Care Provider + Encounter Details Date Type Department Care Team (Late st Contact Info) Description 07/15/2023 Orders Only [facility] [address] [place] [phone] Veronica Krishna, RN Social History Tobacco Use Types Packs/Day [...] on file Legal Sex 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 DIRECTOR OF CATERING Gender Identity Not on file Sexual Orientation Not on file documented as of this encounter Plan of Treatment Not on file documented as of this encounter Visit Diagnoses Not on filedocumented in this encounter Care Teams Sr Vice President Relationship Specialty Start Date End Date Gadiel Majano MD [address] [facility] [place] [phone] PCP - General 07/06/16 documented as of this encounter
--- OUTSIDE RECORDS SUMMARY | 2024-05-11 14:52 | XMS_ITS | Encounter Summary ---
Author Organization [facility] Address [address] [facility] [place] [address] Care Team Providers Care Bridge Opener Name Role Phone Gadiel Majano MD Primary Care Provider + Reason for Referral * Diagnostic Imaging (Routine) - Closed Specialty Diagnoses / Procedures Referred By Josie ftich Referred To Contact Diagnoses IUD check up [place] [address] [place] [address] Phone: tel: fax: [facility] Referral ID Status Reason Start Date Expiration Date Visits Re quested Visits Authorized [id number] Closed 07/12/2023 08/10/2024 1 1 LINER * Diagnostic Lab (Routine) - Pending Review Specialty Diagnoses / Procedures Referred By Josie fitch Referred To Contact Lab Diagnoses Encounter for well woman exam Procedures ThinPrep(R) Imaging Pap and HPV mRNA E6/E7 Reflex HPV 16,18/[place] [address] [place] [address] Phone: tel: fax: Referral ID Status Reason Start Date Expiration Date V isits Requested Visits Authorized [id number] Pending Review 07/12/2023 08/10/2024 1 1 LINER Reason for Visit * Reason Comments Annual Exam Encounter Details Date Type Department Care Team (Late st Contact Info) Description 07/12/2023 3:55 PM PIPE LINER Office Visit [facility] [address] [place] [phone] [place] [address] [place], [place] [id number] Encounter for well woman exam (Primary Dx); IUD check up; Attempted IUD removal, unsuccessful Social History Tobacco Use Types Packs/Day Years [...] on file Legal Sex 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 PIPE LINER Gender Identity Not on file Sexual Orientation Not on file documented as of this encounter Last Filed Vital Signs Vital Sign Reading Time Taken Comments Blood Pressure 115/84 07/12/2023 3:48 PM PIPE LINER Pulse - - Temperature - - Respiratory Rate - - Oxygen Saturation - - Inhaled Oxygen Concentration - - Weight 86.2 kg (190 lb) 07/12/2023 3:48 PM PIPE LINER Height 165.1 cm (5' 5 ) 07/12/2023 3:48 PM PIPE LINER Body Mass Index 31.62 07/12/2023 3:48 PM PIPE LINER documented in this encounter Ordered Prescriptions Prescription Sig Dispense Quantity Refills Last Filled Start Date End Date miSOPROStoL (CYTOTEC) 200 mcg tablet 2 tablets buckel at bedtime the evening prior to procedure 2 tablet 07/12/2023 lactic qchp-noaikc-vbwwil ium (Phexxi) 1.8-1-0.4 % gel vaginal gel Insert 5 g into the vagina as needed (insert into vagina prior to intercourse) 60 g 3 07/12/2023 documented in this encounter Progress Notes * Erica Nayak NP - 07/12/2023 3:55 PM CST [facility] Woman Exam HPI: Trinh Corral is a 32 y.o. year old female who presents for a well woman exam and IUD removal. Denies any breast tenderness, pelvic pain or vaginal discharge. Mirena IUD inserted 10/2018, would like removed today and would like to start phexxi, rvd effectivenss. Pt will use NFP and condoms, pt has been on hormonal contraception for 10 years and has not had menses. Would like for menses to return prior to attempting conception in a year or so. Recommend pnv daily. Current with pcp. No medical illnesses. OB History 0 Para 0 Term 0 0 AB 0 Living 0 SAB 0 IAB 0 Ectopic 0 Multiple 0 Live Births 0 I have reviewed medical history, surgical history, medications, social history, family history withpatient. Patient denies any changes in personal or family history. REVIEW OF SYSTEMS: Review of systems negative PHYSICAL EXAM: There were no vitals taken for this visit. General: Well appearing, No pain or distress, well nourished Neck: Supple Breast: No dominant masses, no skin changes. B/l nipples normal Respiratory: Respirations unlabored Gastrointestinal: soft, non-tender abdomen, no masses palpable EGBUS: wnl Vagina: wnl Cervix: no polyps or lesion. Normal discharge, iud strings in os Uterus: non-tender, no masses Adnexa: b/l non-tender, no masses Extremities: no cyanosis or clubbing or edema Musculoskeletal: no obvious joint deformities Skin: no obvious rash or bruising Psychiatric: normal affect Neurologic: awake/alert, no focal deficits Assessment and Plan: Trinh Corral is a 32 y.o. female who presents for a well woman exam. -Pap done. Enc'd monthly sbe -Contraceptive options including LARC reviewed. Patient plans to start Phexxi once IUD removed, will use condoms and practice NFP. -STI screening discussed. Patient declines -Mammogram: at age 40/sooner prn -IUD removal attempted today, IUD knot/strings visible lateral to cervix, appears cervical tissue has grown over IUD, Dr Jones brought into room to evaluate, she recommends ultrasound to check IUDplacement, cytotec buckel 400mcg night prior to us, then we will attempt removal again pending us results. RTO 1 yr/prn Erica Nayak NP LINER documented in this encounter Plan of Treatment Not on file documented as of this encounter Procedures Procedure Name Priority Date/Time Associated Diagnosis Comments THINPREP IMAGING PAP AND HPV MRNA E6/E7 REFLEX HPV 16,18/45 Routine 07/12/2023 4:23 PM PIPE LINER Encounter for well woman exam documented in this encounter Results * US Transvaginal (07/19/2023 1:39 PM PIPE LINER) Endometrial Thickness 6.5 mm&millime ters VIEWPOINT Anatomical Region Laterality Modality Pelvis N/A Ultrasound 07/19/2023 1:54 PM PIPE LINER Impressions 07/22/2023 5:13 PM PIPE LINER IUD appropriately positioned. Narrative Procedure Note Niki Jones DO - 07/22/2023 IMPRESSION: IUD appropriately positioned. us Erica Nayak NP IMG US PROCEDURES Final Result * ThinPrep(R) Imaging Pap and HPV mRNA E6/E7 Reflex HPV 16,18/45 (07/12/2023 4:23 PM PIPE LINER) CLINICAL INFORMATION: [facility] Comment:None given LMP [facility] Comment:NONE GIVEN Previous Pap [facility] Comment:NONE GIVEN Prev. Bx [facility] Comment:NONE GIVEN SOURCE: [facility] Comment:None given Pap, specimen adequacy [facility] Comment: Satisfactory for evaluation. Endocervical/transformation zone component present. Age and/or menstrual status not provided HPV interp [facility] Comment: Cytology Results: Negative for intraepithelial lesion or malignancy. COMMENTS [facility] Comment: This Pap test has been evaluated with computer assisted technology. Flight Engineer Performance Qualified [facility] Comment: TLS, CT(ASCP) CT Screening Location: [place] [address] Comment [facility] Comment: EXPLANATORY NOTE: The Pap is [...] High Risk E6/E7 Not Detected Not Detected [facility] Comment: Methodology: Delicatessen Department Manager-Mediated Amplification This assay detects E6/E7 viral messenger RNA (mRNA) from 14 high-risk HPV types (16,18,31,33,35,39,45,51,52,56,58,59,66,68). Cervical sources are required for HPV testing. If a vaginal source from a patient who has had a total hysterectomy with removal of cervix was submitted, please contact the testing laboratory for alternative testing options. For additional information, please refer to http://education.powervault/faq/ZBF426f5 (This link if provided for information/ educational purposes only.) Swab 07/12/2023 4:23 PM PIPE LINER 07/13/2023 4:57 AM PIPE LINER Erica Nayak NP LAB CYTOLOGY ORDERABLES Final Result [facility] [address] [place] [address] [facility] [address] [place] [address] documented in this encounter Visit Diagnoses Diagnosis Encounter for well woman exam- Primary IUD check up Attempted IUD removal, unsuccessful IUD check up documented in this encounter Discontinued Medications Medication Sig Discontinue Reason Start Date End Da te levonorgestreL (MIRENA) IUD by intrauterine route Therapy completed 07/12/19 24 ondansetron ODT (ZOFRAN-ODT) 4 mg disintegrating tablet Take 1 tablet (4 mg total) by mouth every 8 (eight) hours as needed for nausea or vomiting Therapy completed 05/30/2022 07/12/2023 documented as of this encounter Care Teams Bridge Opener Relationship Specialty Start Date End Date Gadiel Majano MD [address] [place] [address] PCP - General 07/06/16 documented as of this encounter
--- OUTSIDE RECORDS SUMMARY | 2024-05-11 14:53 | XMS_ITS | Encounter Summary ---
Author Organization [facility] Healthcare Address [address] [place] [address] Care Team Providers Care Computer Help Desk Representative Name Role Phone Gadiel Majano MD Primary Care Provider + Encounter Details Date Type Department Care Team (Late st Contact Info) Description 01/20/2019 7:15 PM CDT Lab [address] [address] Urinary frequency Social History Tobacco Use Types Packs/Day Years Used Date Smoking Tobacco: Every Day Cigarettes Smokeless Tobacco: Never Alcohol Use Standard Drinks/Week Comments No 0 (1 standard drink = 0.6 oz pur e alcohol) Comments No Sex and Gender Information Value Date Recorded Sex Assigned at Not on file Legal Sex 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 WELLHEAD PUMPER Gender Identity Not on file Sexual Orientation Not on file documented as of this encounter Plan of Treatment Not on file documented as of this encounter Procedures Procedure Name Priority Date/Time Associated Diagnosis Comments URINE CULTURE Routine 01/20/2019 4:36 PM CDT Urinary frequency documented in this encounter Results * Urine culture Urine, clean voided (01/20/2019 4:36 PM CDT) Report Final Report: Less than 100,000 colonies/mL (clinically insignificant growth based on current clinical standards) [facility] Comment:Testing performed by : [facility], [address] [place] [address] Organism (CLINICALLY INSIGNIFICANT GROWTH [facility]NABEL[facility] STUART Urine, clean voided 01/20/2019 4:36 PM CDT 01/20/2019 10:39 PM CDT Narrative ANNABELLE STUART - 01/22/2019 8:01 AM CDT Testing performed by [facility] Microbiology Laboratory ([phone]) us Sveta Menendez ADVERTISING INTERN LAB MICROBIOLOGY - NERAL ORDERABLES Final Result [facility] [address] Department [place] [address] documented in this encounter Visit Diagnoses Diagnosis Urinary frequency documented in this encounter Care Teams Computer Help Desk Representative Relationship Specialty Start Date End Date Gadiel Majano MD [address] [place] [address] PCP - General 07/06/16 documented as of this encounter
--- OUTSIDE RECORDS SUMMARY | 2024-05-11 14:53 | XMS_ITS | Encounter Summary ---
Author Organization [facility] Address [address] [place] [address] Care Team Providers Care Dryerman/Woman Name Role Phone Gadiel Majano MD Primary Care Provider + Reason for Visit * Reason Onset Date Comments UA results 09/14/2018 Encounter Details Date Type Department Care Team (Late st Contact Info) Description 09/14/2018 Telephone [facility] [address] [place] [address] [place] [address] Gadiel Majano MD [address] [place] [phone] UA results Social History Tobacco Use Types Packs/Day Years Used Date Smoking Tobacco: Every Day Alcohol Use Standard Drinks/Week Comments No 0 (1 standard drink = 0.6 oz pur e alcohol) Comments Unknown Sex and Gender Information Value Date Recorded Sex Assigned at Not on file Legal Sex 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 ASSEMBLER TYPE BAR AND SEGMENT Gender Identity Not on file Sexual Orientation Not on file documented as of this encounter Miscellaneous Notes * Telephone Encounter - Tabitha Gao MA - 09/14/2018 10:17 AM CDT Trinh has been informed of the results and will continue with treatment as suggested. documented in this encounter Plan of Treatment Not on file documented as of this encounter Visit Diagnoses Not on filedocumented in this encounter Care Teams Dryerman/Woman Relationship Specialty Start Date End Date Gadiel Majano MD [address] [place] [address] PCP - General 07/06/16 documented as of this encounter
--- OUTSIDE RECORDS SUMMARY | 2024-05-11 14:53 | XMS_ITS | Encounter Summary ---
Author Organization [facility] Care Team Providers Care Vice President Education Name Role Phone Gadiel Majano MD Primary Care Provider + Encounter Details Date Type Department Care Team (Latest Contact Info) Description 01/19/2019 Travel Social History Tobacco Use Types Packs/Day Years Used Date Smoking Tobacco: Every Day Cigarettes Smokeless Tobacco: Never Alcohol Use Standard Drinks/Week Comments No 0 (1 standard drink = 0.6 oz pur e alcohol) Comments No Sex and Gender Information Value Date Recorded Sex Assigned at Not on file Legal Sex 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 ACADEMIC SUPPORT DIRECTOR Gender Identity Not on file Sexual Orientation Not on file documented as of this encounter Plan of Treatment Not on file documented as of this encounter Visit Diagnoses Not on filedocumented in this encounter Care Teams Vice President Education Relationship Specialty Start Date End Date Gadiel Majano MD [address] [place] [address] PCP - General 07/06/16 documented as of this encounter
--- OUTSIDE RECORDS SUMMARY | 2024-05-11 14:53 | XMS_ITS | Encounter Summary ---
Author Organization [facility] Healthcare Address [address] [place] [address] Care Team Providers Care Dough Raiser Name Role Phone Gadiel Majano MD Primary Care Provider + Encounter Details Date Type Department Care Team (Late st Contact Info) Description 06/18/2015 7:03 AM SAMPLER TESTER - 06/18/2015 7:45 AM SAMPLER TESTER Hospital Encounter [facility] Baldo Mitchell MD [address] [facility] [place] [address] Acute cystitis without hematuria; Cigarette nicotine dependence, uncomplicated; Personal history of urinary infection Social History Tobacco Use Types Packs/Day Years Used Date Smoking Tobacco: Every Day Alcohol Use Standard Drinks/Week Comments No 0 (1 standard drink = 0.6 oz pur e alcohol) Comments Unknown Sex and Gender Information Value Date Recorded Sex Assigned at Not on file Legal Sex 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 SAMPLER TESTER Gender Identity Not on file Sexual Orientation Not on file documented as of this encounter Plan of Treatment Not on file documented as of this encounter Visit Diagnoses Diagnosis Acute cystitis without hematuria Cigarette nicotine dependence, uncomplicated Personal history of urinary infection documented in this encounter Care Teams Dough Raiser Relationship Specialty Start Date End Date Gadiel Majano MD [address] [place] [phone] PCP - General 02/23/11 07/05/16 documented as of this encounter
--- OUTSIDE RECORDS SUMMARY | 2024-05-11 14:53 | XMS_ITS | Encounter Summary ---
Author Organization [facility] Address [address] [place] [address] Care Team Providers Care Candy Feeder Name Role Phone Gadiel Majano MD Primary Care Provider + Reason for Referral * Diagnostic Lab (Routine) - Closed Specialty Diagnoses / Procedures Referred By Josie fitch Referred To Contact Lab Diagnoses Routine gynecological examination Procedures ThinPrep(R) Imaging Pap and HPV mRNA E6/E7 Reflex HPV 16,18/[place] [address] [place] [address] Phone: tel: fax: Referral ID Status Reason Start Date Expiration Date Visits Re quested Visits Authorized [id number] Closed 11/16/2022 12/16/2023 1 1 Reason for Visit * Reason Comments Annual Exam Encounter Details Date Type Department Care Team (Latest Contact Info) Description 11/16/2022 4:00 PM CDT Office Visit [facility] [address] [place] [address] [place] [address] [place] [address] Routine gynecological examination (Primary Dx) Social History Tobacco Use Types Packs/Day Years Used Date Smoking Tobacco: Former Cigarettes Passive Smoke Exposure: Past Smokeless Tobacco: Never Alcohol Use Standard Drinks/Week Comments No 0 (1 standard drink = 0.6 oz pur e alcohol) Comments No Sex and Gender Information Value Date Recorded Sex Assigned at Not on file 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 year old female who presents for a well woman exam. 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 No menstrual period since IUD placement. Denies any breast tenderness, pelvic pain or vaginal discharge. Menstrual History: No LMP recorded. (Menstrual status: IUD). Sexual History: Same male partner x 4 years OB History 0 Para 0 Term 0 0 AB 0 Living 0 SAB 0 IAB 0 Ectopic 0 Multiple 0 Live Births 0 I have reviewed medical history, surgical history, medications, social history, family history withpatient. Patient denies any changes in personal or family history. REVIEW OF SYSTEMS: Review of systems negative except for all pertinent positive and negative in HPI. PHYSICAL EXAM: BP 107/74 Ht 165.1 cm (5' 5 ) Wt 182 lb (82.6 kg) BMI 30.29 kg/m?? General: Well appearing, No pain or distress, well nourished Neck: Supple Breast: No dominant masses, no skin changes. B/l nipples normal Respiratory: Respirations unlabored Gastrointestinal: soft, non-tender abdomen, no masses palpable EGBUS: Normal, no lesions Cervix:No polyps or lesion. Normal discharge. IUD string visible Uterus: Normal, no masses Adnexa: b/l normal size, no tenderness Extremities: no cyanosis or clubbing or edema Musculoskeletal: no obvious joint deformities Skin: no obvious rash or bruising Psychiatric: normal affect Neurologic: awake/alert, no focal deficits Assessment and Plan: Trinh Corral is a 32 y.o. female who presents for a well woman exam. -Pap collected with HrHPV -Contraception: Mirena IUD 08/2018 -STI screening discussed. Patient declined -Patient is considering MP consult to discuss egg preservation RTO 1 yr/prn Niki Jones DO documented in this encounter Plan of Treatment Not on file documented as of this encounter Procedures Procedure Name Priority Date/Time Associated Diagnosis Comments THINPREP IMAGING PAP AND HPV MRNA E6/E7 REFLEX HPV 16,18/45 Routine 11/16/2022 4:39 PM CDT Routine gynecological examination documented in this encounter Results * ThinPrep(R) Imaging Pap and HPV mRNA E6/E7 Reflex HPV 16,18/45 (11/16/2022 4:39 PM CDT) CLINICAL INFORMATION: [facility] Comment:None given LMP [facility] Comment:NONE GIVEN Previous Pap [facility] Comment:NONE GIVEN Prev. Bx [facility] [employer] [facility] Comment:NONE GIVEN SOURCE: [facility] Comment:None given Pap, specimen adequacy [facility] Comment: Satisfactory for evaluation. Endocervical/transformation zone component present. Age and/or menstrual status not provided HPV interp [facility] Comment:Negative for intraep ithelial lesion or malignancy. COMMENTS [facility] [employer] [facility] Comment: This Pap test has been evaluated with computer assisted technology. [employer] [facility] Comment: BES, CT(ASCP) CT screening location: [place] [address] [place], [facility] Comment [facility] Comment: EXPLANATORY NOTE: The Pap is [...] High Risk E6/E7 Not Detected Not Detected [facility] Comment: Methodology: Mobility Developer-Mediated Amplification This assay detects E6/E7 viral messenger RNA (mRNA) from 14 high-risk HPV types (16,18,31,33,35,39,45,51,52,56,58,59,66,68). Cervical sources are required for HPV testing. If a vaginal source from a patient who has had a total hysterectomy with removal of cervix was submitted, please contact the testing laboratory for alternative testing options. For additional information, please refer to http://education.AtBizz/faq/ECC886p7 (This link if provided for information/ educational purposes only.) Swab 11/16/2022 4:39 PM CDT 11/17/2022 4:33 AM CDT Niki Jones DO LAB CYTOLOGY ORDERABLES Final Result [facility] [address] [place] [address] [facility] [address] [place] [address] documented in this encounter Visit Diagnoses Diagnosis Routine gynecological examination- Primary documented in this encounter Care Teams Candy Feeder Relationship Specialty Start Date End Date Gadiel Majano MD [address] [facility] [place] [address] PCP - General 07/06/16 documented as of this encounter
--- OUTSIDE RECORDS SUMMARY | 2024-05-11 14:53 | XMS_ITS | Encounter Summary ---
Author Organization [facility] Healthcare Address [address] [place] [address] Care Team Providers Care Assistant Film Editor Name Role Phone Gadiel Majano MD Primary Care Provider + Encounter Details Date Type Department Care Team (Late st Contact Info) Description 06/10/2015 2:15 PM HEDIS REGISTERED NURSE RN - 06/10/2015 11:59 PM HEDIS REGISTERED NURSE RN Hospital Encounter [facility] Aj Fitzgerald MD [address] [place] [address] [place] [address] Cassidy Mcelroy, [address] [place] [address] Urinary tract infection Social History Tobacco Use Types Packs/Day Years Used Date Smoking Tobacco: Every Day Alcohol Use Standard Drinks/Week Comments No 0 (1 standard drink = 0.6 oz pur e alcohol) Comments Unknown Sex and Gender Information Value Date Recorded Sex Assigned at Not on file Legal Sex 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 HEDIS REGISTERED NURSE RN Gender Identity Not on file Sexual Orientation Not on file documented as of this encounter Plan of Treatment Not on file documented as of this encounter Procedures Procedure Name Priority Date/Time Associated Diagnosis Comments URINE (AEROBIC) CULTURE, CDR Routine 06/10/2015 2:15 PM HEDIS REGISTERED NURSE RN DISCHARGE LABORATORY CUMULATIVE REPORT 06/10/2015 documented in this encounter Results * Urine (aerobic) culture (06/10/2015 2:15 PM HEDIS REGISTERED NURSE RN) Urine, clean voided (Unknown) 06/10/2015 2:15 PM HEDIS REGISTERED NURSE RN Narrative HISTORICAL RESULTS - 06/13/2015 7:10 AM HEDIS REGISTERED NURSE RN Less than 10,000 colonies/ml of Gram Negative Bacilli Less than 10,000 colonies/ml of Multiple Gram Positive organisms Routine susceptibility testing not performed. Historical Provider LAB MICROBIOLOGY - GENERA L ORDERABLES Final Result HISTORICAL RESULTS * DISCHARGE LABORATORY CUMULATIVE REPORT (06/10/2015) Narrative 06/10/2015 Ordered by an unspecified provider. Historical Provider LAB BLOOD ORDERABLES Enma l Result documented in this encounter Visit Diagnoses Diagnosis Urinary tract infection Urinary tract infection, site not specified documented in this encounter Care Teams Assistant Film Editor Relationship Specialty Start Date End Date Gadiel Majano MD [address] [facility] [place] [address] PCP - General 02/23/11 07/05/16 documented as of this encounter
--- OUTSIDE RECORDS SUMMARY | 2024-05-11 14:53 | XMS_ITS | Encounter Summary ---
Author Organization [facility] Address [address] [facility] [address] [place] [address] Care Team Providers Care Cork Tile Floor Layer Name Role Phone Gadiel Majano MD Primary Care Provider + Reason for Referral * MRI/CAT/PET Scan (Routine) - Closed Specialty Diagnoses / Procedures Referred By Contac t Referred To Contact Radiology Diagnoses Left elbow pain Procedures MRI Elbow Left WO Contrast Lyndon Navas MD Phone: tel: fax: Referral ID Status Reason Start Date Expiration Date Visits Re quested Visits Authorized [id number] Closed 12/02/2016 01/16/2017 1 1 Encounter Details Date Type Department Care Team (Late st Contact Info) Description 12/02/2016 Orders Only [facility] Orthopedics and Sports Medicine [address] [place] [phone] Odalys Tolentino Left elbow pain (Primary Dx) Social History Tobacco Use Types Packs/Day Years Used Date Smoking Tobacco: Every Day Alcohol Use Standard Drinks/Week Comments No 0 (1 standard drink = 0.6 oz pur e alcohol) Comments Unknown Sex and Gender Information Value Date Recorded Sex Assigned at Not on file 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 MR Elbow SONI L HISTORY: LEFT ELBOW PAIN. ??Injury due to fall. ??Fracture available. Decreased range of motion. TECHNIQUE: Axial T1, T2, proton density fat saturation, sagittal T1, T2, spare, coronal T1, T2, spare. COMPARISON: None available. FINDINGS: Extensive marrow edema capitellum and lateral epicondyles. Minimal to mild marrow edema involving the olecranon process and another linear area of marrow edema extending from anterior aspect of the articular surface of the ulna and extending anteriorly within the proximal ulna. ??There appears to be some increased signal within the proximal portion ulnar collateral ligament suggesting at least a partial tear. ??A portion of the radial collateral ligament is intact. Posteriorly suggestion of a small defect, raising the possibility of a small partial tear.. ??Some mild edema involving the palmaris longus muscle also some minimal marrow edema involving the medial epicondyles. ??Mild joint effusion at the elbow. ??Joints are maintained. IMPRESSION: 1. ??PROMINENT MARROW EDEMA CAPITELLUM AND LATERAL EPICONDYLE. 2. ??MINIMAL TO MILD MARROW EDEMA OLECRANON PROCESS. ??ALSO MILD MARROW EDEMA PROXIMAL ULNA EXTENDING FROM ANTERIOR ASPECT OF THE ARTICULAR SURFACE. 3. ??MINIMAL MARROW EDEMA LATERAL EPICONDYLES. 4. ??MILD EDEMA WITHIN THE PALMARIS LONGUS MUSCLE. 5. ??MILD JOINT EFFUSION. 6. ??EVIDENCE OF PARTIAL TEAR ULNAR COLLATERAL LIGAMENT. 7. ??QUESTION OF A SMALL PARTIAL TEAR RADIAL COLLATERAL LIGAMENT. Electronically signed by: Corazon Long M.D ? Interpreting Physician: ??CORAZON LONG M.D. ??Read on: ??Dec 08 2016 ??9:22A Transcribed by: ??PSC ??On: Dec 08 2016 ??9:19A Approved Electronically by: ??MERCEDES Werner, CORAZON ??on: ??Dec 08 2016 ??9:19A Ordering DR: DR LYNDON NAVAS Attending DR: LYNDON NAVAS Attending: ??LYNDON NAVAS Requesting: ??DR LYNDON NAVAS Requesting Fax: ??[phone] Attending Fax: ??[phone] Attending ID: ??[id number] Requesting ID: ??[id number] Report To 1 ID: ??[id number] Report To 1 Name: ??LYNDON NAVAS Report To 1 FAX: ??[phone] [facility] Order #: ??[id number] Procedure Note Miscellaneous, Not In File / Provider, Mehul, - 12/08/2016 Elbow WO L - LEFT Acc#: [id number] DATE OF EXAM: Dec 07 2016 Elbow WO L HISTORY: LEFT ELBOW PAIN. Injury due to fall. Fracture available. Decreased range of motion. TECHNIQUE: Axial T1, T2, proton density fat saturation, sagittal T1, T2, spare, coronal T1, T2, spare. COMPARISON: None available. FINDINGS: Extensive marrow edema capitellum and lateral epicondyles. Minimal to mild marrow edema involving the olecranon process and another linear area of marrow edema extending from anterior aspect of the articular surface of the ulna and extending anteriorly within the proximal ulna. There appears to be some increased signal within the proximal portion ulnar collateral ligament suggesting at least a partial tear. A portion of the radial collateral ligament is intact. Posteriorly suggestion of a small defect, raising the possibility of a small partial tear.. Some mild edema involving the palmaris longus muscle also some minimal marrow edema involving the medial epicondyles. Mild joint effusion at the elbow. Joints are maintained. IMPRESSION: 1. PROMINENT MARROW EDEMA CAPITELLUM AND LATERAL EPICONDYLE. 2. MINIMAL TO MILD MARROW EDEMA OLECRANON PROCESS. ALSO MILD MARROW EDEMA PROXIMAL ULNA EXTENDING FROM ANTERIOR ASPECT OF THE ARTICULAR SURFACE. 3. MINIMAL MARROW EDEMA LATERAL EPICONDYLES. 4. MILD EDEMA WITHIN THE PALMARIS LONGUS MUSCLE. 5. MILD JOINT EFFUSION. 6. EVIDENCE OF PARTIAL TEAR ULNAR COLLATERAL LIGAMENT. 7. QUESTION OF A SMALL PARTIAL TEAR RADIAL COLLATERAL LIGAMENT. Electronically signed by: Corazon Long M.D Interpreting Physician: CORAZON LONG M.D. Read on: Dec 08 2016 9:22A Transcribed by: MICHELLE On: Dec 08 2016 9:19A Approved Electronically by: CORAZON LONG M.D. on: Dec 08 2016 9:19A Ordering DR: DR LYNDON NAVAS Attending DR: LYNDON NAVAS Attending: LYNDON NAVAS Requesting: DR LYNDON NAVAS Requesting Attending Attending ID: [id number] Requesting ID: [id number] Report To 1 ID: [id number] Report To 1 Name: LYNDON NAVAS Report To 1 FAX: [phone] [facility] Order #: [id number] Lyndon Navas MD IMG MRI PROCEDURES Fin al Result documented in this encounter Visit Diagnoses Diagnosis Left elbow pain- Primary Pain in joint, upper arm Left elbow pain Pain in joint, upper arm documented in this encounter Care Teams Cork Tile Floor Layer Relationship Specialty Start Date End Date Gadiel Majano MD [address] [place] [phone] PCP - General 07/06/16 documented as of this encounter
--- OUTSIDE RECORDS SUMMARY | 2024-05-11 14:53 | XMS_ITS | Encounter Summary ---
Author Organization [facility] Healthcare Address [address] [place] [address] Care Team Providers Care Swim Instructor Name Role Phone Gadiel Majano MD Primary Care Provider + Encounter Details Date Type Department Care Team (Late st Contact Info) Description 10/01/2017 6:55 AM CDT Lab [address] [phone] Gadiel Majano MD [address] [place] [phone] Discharge Disposition: Discharge to home or self care Social History Tobacco Use Types Packs/Day Years Used Date Smoking Tobacco: Every Day Alcohol Use Standard Drinks/Week Comments No 0 (1 standard drink = 0.6 oz pur e alcohol) Comments Unknown Sex and Gender Information Value Date Recorded Sex Assigned at Not on file 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 Gender Identity Not on file Sexual Orientation Not on file documented as of this encounter Discharge Disposition Disposition Code Departure Means Destination Discharge to home or self care documented in this encounter Plan of Treatment Not on file documented as of this encounter Procedures Procedure Name Priority Date/Time Associated Diagnosis Comments DISCHARGE LABORATORY CUMULATIVE REPORT 10/02/2017 12:00 AM CDT EGFR Routine 10/01/2017 7:00 AM CDT DIFFERENTIAL AUTO Routine 10/01/2017 7:0 0 AM CDT CBC WITH AUTO DIFFERENTIAL Routine 10/01/2017 7:00 AM CDT TSH Routine 10/01/2017 7:00 AM CDT MAGNESIUM Routine 10/01/2017 7:00 AM CDT HEMOGLOBIN A1C Routine 10/01/2017 7:00 AM CDT VITAMIN B12 Routine 10/01/2017 7:00 AM CDT LIPID PANEL Routine 10/01/2017 7:00 AM CDT COMPREHENSIVE METABOLIC PANEL Routine 10/01/2017 7:00 AM CDT documented in this encounter Results * DISCHARGE LABORATORY CUMULATIVE REPORT (10/02/2017 12:00 AM CDT) Narrative 10/02/2017 12:00 AM CDT Ordered by an unspecified provider. us Historical Provider LAB BLOOD ORDERABLES Enma l Result * Vitamin B12 (10/01/2017 7:00 AM CDT) Vitamin B12 330 180 - 920 pg/mL [facility] ([place]) Comment: Interpretive Data Reference Interval (greater than 1 year of age) Normal: ? 180 - 920 pg/ml Indeterminate: ??145 - 180 pg/ml Deficient: ? <145 pg/ml Current Interpretive Data was last revised on 2015 Testing performed by: [facility], [address] [place] [address], [place]., [address] Blood specimen (specimen) 10/01/2017 7:00 AM CDT 10/01/2017 11:25 AM CDT Narrative [facility] ([place]) - 10/01/2017 12:09 PM CDT Gadiel Majano MD LAB BLOOD ORDERABLES Fin al Result [facility]ELLE [facility] ([place]) 1 [facility] Department [place] [address] * eGFR (10/01/2017 7:00 AM CDT) Pathologist [facility] eGFR >60 mL/min/1.7 3 m2 ANNABELLE TAYLOR ([place]) Comment: Interpretive Data Reference Interval Normal ?>/= 90 mL/min/1.73m2 Mildly decreased* ? 60 - 89 mL/min/1.73m2 Mildly to moderately decreased ?45 - 59 mL/min/1.73m2 Moderately to severely decreased ??30 - 44 mL/min/1.73m2 Severely decreased ?15 - 29 mL/min/1.73m2 Kidney Failure ?< 15 ??mL/min/1.73m2 *Relative to young adult level If -[place] Island[place] multiply value by 1.16. Estimated glomerular filtration rate is determined by the CKD-EPI equation recommended by the National Kidney Foundation (KDIGO 2012 Clinical Practice Guideline for the Evaluation and Management of Chronic Kidney Disease. Kidney Intnl Suppl May 2012;3:1). The CKD-EPI equation should not be used for patients with unstable renal function and has not been validated in children and those over 70. Current interpretive data was last reviewed 2015. Blood specimen (specimen) 10/01/2017 7:00 AM CDT 10/01/2017 7:13 AM CDT Narrative [facility] ([place]) - 10/01/2017 7:48 AM CDT us Gadiel Majano MD LAB BLOOD ORDERABLES Fin al Result [facility]NA[facility]ELLE TAYL[facility] ([place]) 1 [facility] Department [place] [address] * Comprehensive metabolic panel (10/01/2017 7:00 AM CDT) Sodium 141 135 - 145 mmol/L [facility] ([place]) Potassium, pl 4.0 3.3 - 4.9 mmol/L [facility] ([place]) CO2 26 22 - 32 mmol/L [facility] ([place]) BUN 16 8 - 25 mg/dL [facility] ([place]) Glucose 81 70 - 199 mg/dL [facility] ([place]) Comment: Interpretive Data Fasting glucose >/= 126 mg/dl is diagnostic for diabetes. ?? Fasting is defined as no caloric intake for at least 8 hours. Fasting glucose between 100 mg/dl to 125 mg/dl is diagnostic of prediabetes. In a patient with classic symptoms of hyperglycemia or hyperglycemic crisis, a random glucose >/= 200 mg/dl is diagnostic for diabetes. In the absence of unequivocal hyperglycemia, results should be confirmed by repeat testing. The classification and Diagnosis of Diabetes Diabetes Care 2017;40 (Suppl. 1):S11. Current interpretive data was last revised 2017. Creatinine 0.74 0.60 - 1.10 mg/dL [facility] ([place]) Calcium 9.6 8.5 - 10.3 mg/dL [facility] ([place]) Chloride 103 97 - 110 mmol/L [facility] ([place]) Albumin 4.3 3.5 - 5.0 g/dL [facility] ([place]) AST 16 10 - 45 Units/L [facility] ([place]) ALT 12 7 - 45 Units/L [facility] ([place]) Alk phos 73 40 - 130 Units/L [facility] ([place]) Bilirubin, total 0.4 0.1 - 1.2 mg/dL [facility] ([place]) Protein, pl 7.0 6.5 - 8.5 g/dL [facility] ([place]) Anion gap 12 2 - 15 mmol/L [facility] ([place]) Blood specimen (specimen) 10/01/2017 7:00 AM CDT 10/01/2017 7:13 AM CDT Narrative [facility] ([place]) - 10/01/2017 7:48 AM CDT us Gadiel Majano MD LAB BLOOD ORDERABLES Fin al Result [facility]NA[facility]ELLE TAYLOR ([place]) 1 [facility] [place] [address] * Magnesium (10/01/2017 7:00 AM CDT) Magnesium 2.0 1.6 - 2.4 mg/dL [facility] ([place]) Blood specimen (specimen) 10/01/2017 7:00 AM CDT 10/01/2017 7:13 AM CDT Narrative [facility] ([place]) - 10/01/2017 7:48 AM CDT us Gadiel Majano MD LAB BLOOD ORDERABLES Fin al Result Performing Organization Address [facility] de Phone Number [facility]NABELLE TAYL[facility] ([place]) 1 [facility] [place] [address] * TSH (10/01/2017 7:00 AM CDT) Thyroid Stimulating Hormone 1.49 0.30 - 5.00 mcIUnit/mL [facility] ([place]) Blood specimen (specimen) 10/01/2017 7:00 AM CDT 10/01/2017 7:13 AM CDT Narrative [facility] ([place]) - 10/01/2017 7:48 AM CDT us Gadiel Majano MD LAB BLOOD ORDERABLES Fin al Result Performing Organization Address [facility] de Phone Number ANNABELLE TAYLOR ([place]) 1 [facility] [place] [address] * (ABNORMAL) Lipid panel (10/01/2017 7:00 AM CDT) Cholesterol 164 40 - 199 mg/dL [facility] ([place]) Comment: Interpretive Data Desirable: ??Less than 200 mg/dl ? Borderline High: ?200 - 239 mg/dl ? High: ??Greater than ?? 239 mg/dl Current interpretive data was last revised on 2014. Triglycerides 56.0 <=150.0 mg/dL [facility] ([place]) Comment: Interpretive Data Normal: ? Less than 150 mg/dl Borderline high: ??150-199 mg/dl ?? High: ? 200-499 mg/dl ? Very high: ??Greater than or equal to 500 mg/dl Current interpretive data was last revised on 2016. HDL 70(H) 40 - 60 mg/dL [facility] ([place]) Comment: Interpretive Data Low HDL Cholesterol: ? Less than 40 mg/dl Normal HDL Cholesterol: ??40-60 mg/dl High HDL Cholesterol: ?Greater than 60 mg/dl Current interpretive data was last revised on 2014. LDL, calculated 83 mg/dL [facility] ([place]) Comment: Interpretive Data Optimal ? Less than 100 mg/dL ? Near optimal/Above optimal ??100 - 129 mg/dL ? Borderline high ? 130 - 159 mg/dL ? High ?160 - 189 mg/dL ? Very high ? Greater than or = 190 mg/dL ? LDL values are not valid when the total Triglyceride is greater than 300 mg/dL. Current interpretive data was last revised on 2014. Non-HDL Cholesterol 94 mg/dL [facility] ([place]) Comment: Interpretive Data Optimal ? Less than 130 mg/dL Low Risk ?130 - 159 mg/dL Moderate Risk ? 160 - 189 mg/dL High Risk ? Greater than or equal to 190 mg/dL Current interpretive data was last revised on 2014. Blood specimen (specimen) 10/01/2017 7:00 AM CDT 10/01/2017 7:13 AM CDT Narrative [facility] ([place]) - 10/01/2017 7:40 AM CDT us Gadiel Majano MD LAB BLOOD ORDERABLES Fin al Result Performing Organization Address [facility] Co de Phone Number [facility] ([place]) 1 [facility] [place] [address] * Hemoglobin A1c (10/01/2017 7:00 AM CDT) Pathologist [facility] Hgb A1C 4.9 4.0 - 5.6 % [facility] ([place]) Estimated Average Glucose 94 mg/dL [facility] ([place]) Comment: The ADA recommends reporting an estimated Average Glucose (eAG) with all Hemoglobin A1c results using the equation derived from a study of 507 normal and diabetic adults. ??Minority populations were underrepresented and children were not included. ?? (Diabetes Care 31:7630-9486, 2008). ??The eAG is not equivalent to a fasting glucose. Blood specimen (specimen) 10/01/2017 7:00 AM CDT 10/01/2017 7:13 AM CDT Narrative [facility] ([place]) - 10/01/2017 7:30 AM CDT us Gadiel Majano MD LAB BLOOD ORDERABLES Fin al Result Performing Organization Address [facility] Co de Phone Number [facility] ([place]) 1 [facility] [place] [address] * Differential, auto (10/01/2017 7:00 AM CDT) Neutrophil abs 3.6 1.7 - 6.5 K/cumm [facility] ([place]) Imm gran abs 0.0 0.0 - 0.1 K/cumm [facility] ([place]) Lymphocyte abs 2.3 0.8 - 3.3 K/cumm [facility] ([place]) Monocyte abs 0.8 0.2 - 0.8 K/cumm [facility] ([place]) Eosinophil abs 0.3 0.0 - 0.5 K/cumm [facility] ([place]) Basophil abs 0.0 0.0 - 0.1 K/cumm [facility] ([place]) Neutrophil pct 50.8 % [facility] ([place]) Comment: Interpretive Data Percent cell count reference ranges are not reported, since discordance with absolute values may lead to misinterpretation of CBC data. Current Interpretive Data was last revised on 2017. Imm gran pct 0.3 % [facility] ([place]) Comment: Interpretive Data Percent cell count reference ranges are not reported, since discordance with absolute values may lead to misinterpretation of CBC data. Current Interpretive Data was last revised on 2017. Lymphocyte pct 32.8 % [facility] ([place]) Comment: Interpretive Data Percent cell count reference ranges are not reported, since discordance with absolute values may lead to misinterpretation of CBC data. Current Interpretive Data was last revised on 2017. Monocyte pct 11.4 % [facility] ([place]) Comment: Interpretive Data Percent cell count reference ranges are not reported, since discordance with absolute values may lead to misinterpretation of CBC data. Current Interpretive Data was last revised on 2017. Eosinophil pct 4.0 % [facility] ([place]) Comment: Interpretive Data Percent cell count reference ranges are not reported, since discordance with absolute values may lead to misinterpretation of CBC data. Current Interpretive Data was last revised on 2017. Basophil pct 0.7 % [facility] ([place]) Comment: Interpretive Data Percent cell count reference ranges are not reported, since discordance with absolute values may lead to misinterpretation of CBC data. Current Interpretive Data was last revised on 2017. Blood specimen (specimen) 10/01/2017 7:00 AM CDT 10/01/2017 7:13 AM CDT Narrative [facility] ([place]) - 10/01/2017 7:16 AM CDT us Gadiel Majano MD LAB BLOOD ORDERABLES Fin al Result [facility] ([place]) 1 [facility] [employer] [place] [address] * (ABNORMAL) CBC with auto differential (10/01/2017 7:00 AM CDT) WBC 7.0 3.8 - 9.9 K/cumm [facility] ([place]) RBC 4.40 3.90 - 5.20 M/cumm [facility] ([place]) Hgb 14.2 11.9 - 15.5 g/dL [facility] ([place]) Hct 43.5 35.6 - 45.5 % [facility] ([place]) MCV 98.9(H) 81.3 - 96.4 fL [facility] ([place]) MCH 32.3 27.1 - 33.3 pg [facility] ([place]) MCHC 32.6 32.3 - 35.7 g/dL [facility] ([place]) RDW CV 12.2 11.1 - 14.9 % [facility] ([place]) Plt 229 150 - 400 K/cumm [facility] ([place]) MPV 10.8 9.1 - 12.3 fL [facility] ([place]) NRBC abs 0.00 0.00 - 0.01 K/cumm [facility] ([place]) Blood specimen (specimen) 10/01/2017 7:00 AM CDT 10/01/2017 7:13 AM CDT Narrative [facility] ([place]) - 10/01/2017 7:16 AM CDT us Gadiel Majano MD LAB BLOOD ORDERABLES Fin al Result Performing Organization Address [facility]/ZIP Co de Phone Number [facility] ([place]) 1 [facility] [place] [address] documented in this encounter Visit Diagnoses Not on filedocumented in this encounter Care Teams Swim Instructor Relationship Specialty Start Date End Date Gadiel Majano MD [address] [place] [phone] PCP - General 07/06/16 documented as of this encounter
--- OUTSIDE RECORDS SUMMARY | 2024-05-11 14:53 | XMS_ITS | Encounter Summary ---
Author Organization [facility] Healthcare Address [address] [place] [address] Care Team Providers Care Fire Systems Inspector Name Role Phone Gadiel Majano MD Primary Care Provider + Reason for Referral * MRI/CAT/PET Scan (Routine) - Closed Specialty Diagnoses / Procedures Referred By Contac t Referred To Contact Radiology Diagnoses Left elbow pain Procedures MRI Elbow Left WO Contrast Lyndon Navas MD Phone: tel: fax: Referral ID Status Reason Start Date Expiration Date Visits Re quested Visits Authorized [id number] Closed 12/02/2016 01/16/2017 1 1 Encounter Details Date Type Department Care Team (Latest Contact Info) Description 12/07/2016 5:38 PM CDT - 12/07/2016 11:59 PM CDT Hospital Encounter [facility] Lyndon Navas MD [address] [place] [address] Left elbow pain Discharge Disposition: Discharge to home or self care Social History Tobacco Use Types Packs/Day Years Used Date Smoking Tobacco: Every Day Alcohol Use Standard Drinks/Week Comments No 0 (1 standard drink = 0.6 oz pur e alcohol) Comments Unknown Sex and Gender Information Value Date Recorded Sex Assigned at Not on file 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 30 tablet/capsule 3 11/13/2016 11/13/2017 documented as of this encounter Discharge Disposition Disposition Code Departure Means Destination Discharge to home or self care documented in this encounter Plan of Treatment Not on file documented as of this encounter Procedures Procedure Name Priority Date/Time Associated Diagnosis Comments MRI ELBOW LEFT WO CONTRAST Schedule Routine, Read Routine (OP Routine) 12/07/2016 11:26 PM CDT Left elbow pain documented in this encounter Results * MRI Elbow Left WO Contrast (12/07/2016 11:26 PM CDT) Anatomical Region Laterality Modality Upper Extremities Left Magnetic Reson ance 12/07/2016 11:2 6 PM CDT Narrative 12/07/2016 11:26 PM CDT MR Elbow WO L ??- LEFT Acc#: ??[id number] DATE OF EXAM: ??Dec 07 2016 ?? MR Elbow WO L HISTORY: LEFT ELBOW PAIN. ??Injury due [...] NAVAS Requesting: ??DR LYNDON NAVAS Requesting Fax: ??[phone] Attending Fax: ??[phone] Attending ID: ??[id number] Requesting ID: ??[id number] Report To 1 ID: ??[id number] Report To 1 Name: ??LYNDON NAVAS Report To 1 FAX: ??[phone] [employer] Order #: ??[id number] Procedure Note Miscellaneous, Not In File / Provider, MD Mehul - 12/08/2016 MR Tarik SHAFER L - LEFT Acc#: [id number] DATE OF EXAM: Dec 07 2016 Elbow SONI L HISTORY: LEFT ELBOW PAIN. Injury due [...] on: Dec 08 2016 9:22A Transcribed by: PSC On: Dec 08 2016 9:19A Approved Electronically by: CORAZON LONG M.D. on: Dec 08 2016 9:19A Ordering DR: DR LYNDON NAVAS Attending DR: LYNDON NAVAS Attending: LYNDON NAVAS Requesting: DR LYNDON NAVAS Requesting Attending Attending ID: [id number] Requesting ID: [id number] Report To 1 ID: [id number] Report To 1 Name: LYNDON NAVAS Report To 1 FAX: [phone] [facility]: [id number] Lyndon Navas MD IMG MRI PROCEDURES Fin al Result documented in this encounter Visit Diagnoses Diagnosis Left elbow pain Pain in joint, upper arm documented in this encounter Care Teams Fire Systems Inspector Relationship Specialty Start Date End Date Gadiel Majano MD [address] [place] [phone] PCP - General 07/06/16 documented as of this encounter
--- OUTSIDE RECORDS SUMMARY | 2024-05-11 14:53 | XMS_ITS | Encounter Summary ---
Author Organization [facility] Address [address] [facility] [address] [place] [address] Care Team Providers Care Youth Teacher Name Role Phone Gadiel Majano MD Primary Care Provider + Reason for Visit * Reason Comments Urinary Symptom c/o burning when uri nating and urinary frequency for the past 3 days Encounter Details Date Type Department Care Team (Late st Contact Info) Description 01/19/2019 4:15 PM CDT Office Visit [facility] [address] [facility] [place] [address] Sveta Menendez, MACARIO [address] [facility] [place] [address] Urinary frequency (Primary Dx) Social History Tobacco Use Types Packs/Day Years Used Date Smoking Tobacco: Every Day Cigarettes Smokeless Tobacco: Never Alcohol Use Standard Drinks/Week Comments No 0 (1 standard drink = 0.6 oz pur e alcohol) Comments No Sex and Gender Information Value Date Recorded Sex Assigned at Not on file 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 Gender Identity Not on file Sexual Orientation Not on file documented as of this encounter Last Filed Vital Signs Vital Sign Reading Time Taken Comments Blood Pressure 132/80 01/19/2019 4:24 PM CDT Pulse 94 01/19/2019 4:24 PM CDT Temperature 36.7 ??C (98.1 ??F) 01/19/2019 4:24 PM CD T Respiratory Rate 20 01/19/2019 4:24 PM CDT Oxygen Saturation 95% 01/19/2019 4:24 PM CDT Inhaled Oxygen Concentration - - Weight 84.4 kg (186 lb 1.6 oz) 01/19/2019 4:24 P M CDT Height 167.6 cm (5' 6 ) 01/19/2019 4:24 PM CDT Body Mass Index 30.04 01/19/2019 4:24 PM CDT documented in this encounter Patient Instructions * Patient Instructions* Sveta Gutierrez NP - 01/19/2019 4:15 PM CDT Complete antibiotic as prescribed Do not hold your urine. Urinate as soon as you feel the need to go Drink plenty of water and fluids. Limit alcohol, caffeine, and citrus juices- They will irritate the bladder Wipe front to back & wear cotton underwear Try emptying your bladder before and after having sexual intercourse Follow up with your PCP if you are not getting better If you have severe back, flank, or groin pain with nausea/vomiting or are unable to get comfortablefrom the pain, please go to ER for further treatment Tylenol/Motrin for pain documented in this encounter Ordered Prescriptions Prescription Sig Dispense Quantity Refills Last Filled Start Date End Date ciprofloxacin (CIPRO) 500 mg tabletIndications: Urinary frequency Take 1 tablet (500 mg total) by mouth 2 (two) times a day for 7 days 14 tablet 01/19/2019 01/26/2019 documented in this encounter Progress Notes * Sveta Gutierrez NP - 01/19/2019 4:15 PM CDT Images from the original note were not included. Subjective/Objective Patient ID: Trinh Corral is a 28 y.o. female. Chief Complaint Urinary Symptom (c/o burning when urinating and urinary frequency for the past 3 days) Presents to clinic for urinary burning, urgency, frequency x2 days. She was seen on 01/02/19 & she was prescribed Macrobid which helped for about a week. She has had frequent problems with this & has seen a urologist in the past. UTI This is a new problem. The current episode started yesterday. The problem occurs every urination. The problem has been unchanged. The quality of the pain is described as burning. There has been no fever. She is sexually active. Associated symptoms include frequency and urgency. Pertinent negatives include no flank pain. Treatments tried: azo. The treatment provided no relief. Review of Systems Constitutional: Negative for fever. Respiratory: Negative. Cardiovascular: Negative. Gastrointestinal: Negative. Genitourinary: Positive for dysuria, frequency and urgency. Negative for flank pain. Psychiatric/Behavioral: Negative. Physical Exam Constitutional: She is oriented to person, place, and time. She appears well- developed and well-nourished. Neck: Normal range of motion. Cardiovascular: Normal rate and regular rhythm. Pulmonary/Chest: Effort normal and breath sounds normal. Abdominal: Soft. Bowel sounds are normal. There is no tenderness. There is no CVA tenderness. Musculoskeletal: Normal range of motion. Neurological: She is alert and oriented to person, place, and time. GCS eye subscore is 4. GCS verbal subscore is 5. GCS motor subscore is 6. Skin: Skin is warm and dry. Psychiatric: She has a normal mood and affect. Her speech is normal and behavior is normal. Vitals: 01/19/19 1624 BP: 132/80 BP Location: Left arm Patient Position: Sitting Pulse: 94 Resp: 20 Temp: 36.7 ??C (98.1 ??F) TempSrc: Oral SpO2: 95% Weight: 84.4 kg (186 lb 1.6 oz) Height: 167.6 cm (5' 6 ) Assessment/Plan Complete antibiotic as prescribed Do not hold your urine. Urinate as soon as you feel the need to go Drink plenty of water and fluids. Limit alcohol, caffeine, and citrus juices- They will irritate the bladder Wipe front to back & wear cotton underwear Try emptying your bladder before and after having sexual intercourse Follow up with your PCP if you are not getting better If you have severe back, flank, or groin pain with nausea/vomiting or are unable to get comfortablefrom the pain, please go to ER for further treatment Tylenol/Motrin for pain Discussed a follow up w Urology. Diagnoses and all orders for this visit: Urinary frequency (Primary) - POCT urinalysis dipstick - Urine culture Urine, clean voided; Future - ciprofloxacin (CIPRO) 500 mg tablet; Take 1 tablet (500 mg total) by mouth 2 (two) times a day for 7 days Disposition- Discussed medications dosages, usage & potential side effects. Risks and interactions reviewed with patient. Indications for testing reviewed. Patient has been instructed to follow up w PCP or go to ER for any signs or symptoms that are of concern or worsening. Patient verbalizes understanding. The patient was given the opportunity to ask all questions and to have all questions answered. Patient is in agreement with the plan of care Sveta Gutierrez NP documented in this encounter Plan of Treatment Not on file documented as of this encounter Procedures Procedure Name Priority Date/Time Associated Diagnosis Comments POCT URINALYSIS DIPSTICK Routine 01/19/2019 4:34 PM CDT Urinary frequency documented in this encounter Results * Urine culture Urine, clean voided (01/20/2019 4:36 PM CDT) Report Final Report: Less than 100,000 colonies/mL (clinically insignificant growth based on current clinical standards) ANNABELLE STUART Comment:Testing performed by : [facility], [address] [place]., [address] Organism (CLINICALLY INSIGNIFICANT GROWTH ANNABELLE STUART Urine, clean voided 01/20/2019 4:36 PM CDT 01/20/2019 10:39 PM CDT Narrative ANNABELLE STUART - 01/22/2019 8:01 AM CDT Testing performed by [facility] Microbiology Laboratory ([phone]) us Sveta Menendez NP LAB MICROBIOLOGY - [facility] ORDERABLES Final Result ANNABELLE STUART [address] Department [place] [address] * (ABNORMAL) POCT urinalysis dipstick (01/19/2019 4:34 PM CDT) Color, Urine, POC [place] Clarity, ur, POC Cloudy(A) Clear Glucose, ur, POC 250.(A) Negative mg/dL Bilirubin, ur, POC Moderate Negative, Small, Moderate, Large Ketones, ur, POC Small(A) Negative Specific [place], POC 1.015 1.005 - 1.030 Blood, ur, POC Negative Negative pH, ur, POC 5.0 5.0 - 8.0 Protein, ur, POC 1+(A) Negative Urobilinogen, urine, POC 4.0(A) 0.2 - 1.0 mg/dL Nitrite, ur, POC Positive(A) Negative Leukocytes, ur, POC 3+(A) Negative Lot Number [id number] Urine 01/19/2019 4:34 PM CDT Sveta Mennedez NP POINT OF CARE TEST OR DERABLES Final Result documented in this encounter Visit Diagnoses Diagnosis Urinary frequency- Primary Urinary frequency documented in this encounter Care Teams Youth Teacher Relationship Specialty Start Date End Date Gadiel Majano MD [address] [place] [address] PCP - General 07/06/16 documented as of this encounter
--- OUTSIDE RECORDS SUMMARY | 2024-05-11 14:53 | XMS_ITS | Encounter Summary ---
Author Organization [facility] Address [address] [facility] [address] [place] [id number] Care Team Providers Care Seasoning Sprayer Name Role Phone Gadiel Majano MD Primary Care Provider + Reason for Visit * Reason Comments Urinary Symptom Pt c/o dysuria with increased frequency and flank pain x1 day Encounter Details Date Type Department Care Team (Late st Contact Info) Description 09/11/2018 8:15 AM CDT Office Visit [facility] [address] [facility] [place] [address] Sveta Menendez, MACARIO [address] [place] [address] Acute cystitis with hematuria (Primary Dx) Social History Tobacco Use Types Packs/Day Years Used Date Smoking Tobacco: Every Day Tobacco Cessation:Ready to Q uit: No; Counseling Given: No Alcohol Use Standard Drinks/Week Comments No 0 (1 standard drink = 0.6 oz pur e alcohol) Comments Unknown Sex and Gender Information Value Date Recorded Sex Assigned at Not on file 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 Gender Identity Not on file Sexual Orientation Not on file documented as of this encounter Last Filed Vital Signs Vital Sign Reading Time Taken Comments Blood Pressure 110/78 09/11/2018 8:24 AM CDT Pulse 72 09/11/2018 8:24 AM CDT Temperature 36.7 ??C (98.1 ??F) 09/11/2018 8:24 AM CD T Respiratory Rate 18 09/11/2018 8:24 AM CDT Oxygen Saturation 98% 09/11/2018 8:24 AM CDT Inhaled Oxygen Concentration - - Weight 79.4 kg (175 lb) 09/11/2018 8:24 AM CDT Height 167.6 cm (5' 6 ) 09/11/2018 8:24 AM CDT Body Mass Index 28.25 09/11/2018 8:24 AM CDT documented in this encounter Patient Instructions * Patient Instructions* Sveta Gutierrez NP - 09/11/2018 8:15 AM CDT Complete antibiotic as prescribed Do not [...] Refills Last Filled Start Date End Date sulfamethoxazole-t rimethoprim (BACTRIM DS) 800-160 mg per tabletIndications: Acute cystitis with hematuria Take 1 tablet by mouth 2 (two) times a day for 5 days 10 tablet 09/11/2018 09/16/2018 documented in this encounter Progress Notes * Sveta Gutierrez NP - 09/11/2018 8:15 AM CDT Images from the original note were not included. Subjective/Objective Patient ID: Trinh Corral is a 28 y.o. female. Chief Complaint Urinary Symptom (Pt c/o dysuria with increased frequency and flank pain x1 day ) Presents to clinic for urinary discomfort, frequency, low back pain & urgency x2 days. She tooksome azo. She has a hx of UTIs & has seen a urologist in the past. She states that all her allergies to the antibiotics are mostly nausea. UTI This is a new problem. The current episode started yesterday. The problem occurs every urination. The problem has been gradually worsening. The quality of the pain is described as burning. There has been no fever. Associated symptoms include frequency and urgency. Pertinent negatives include no flank pain. The treatment provided no relief. Review of Systems Constitutional: Negative for fever. HENT: Negative. Respiratory: Negative. Cardiovascular: Negative. Gastrointestinal: Negative. Genitourinary: Positive for dysuria, frequency, pelvic pain and urgency. Negative for flank pain. Neurological: Negative. Physical Exam Constitutional: She is oriented to person, place, and time. She appears well- developed and well-nourished. Neck: Normal range of motion. Cardiovascular: Normal rate and regular rhythm. Pulmonary/Chest: Effort normal and breath sounds normal. Abdominal: Soft. Bowel sounds are normal. There is tenderness in the suprapubic area. There is no CVA tenderness. Musculoskeletal: Normal range of motion. Neurological: She is alert and oriented to person, place, and time. GCS eye subscore is 4. GCS verbal subscore is 5. GCS motor subscore is 6. Skin: Skin is warm and dry. Psychiatric: She has a normal mood and affect. Her speech is normal and behavior is normal. Vitals: 09/11/18 0824 BP: 110/78 BP Location: Left arm Patient Position: Sitting Pulse: 72 Resp: 18 Temp: 36.7 ??C (98.1 ??F) TempSrc: Oral SpO2: 98% Weight: 79.4 kg (175 lb) Height: 167.6 cm (5' 6 ) Assessment/Plan [...] ER for further treatment Tylenol/Motrin for pain Diagnoses and all orders for this visit: Acute cystitis with hematuria (Primary) - POCT urinalysis dipstick - Urine culture Urine, clean voided; Future - sulfamethoxazole-trimethoprim (BACTRIM DS) 800-160 mg per tablet; Take 1 tablet by mouth 2 (two) times a day for 5 days Disposition- Discussed medications dosages, usage & [...] the plan of care Sveta Gutierrez NP Cosigned by Aj Benton MD at 09/12/2018 1:06 PM CDT documented in this encounter Plan of Treatment Not on file documented as of this encounter Procedures Procedure Name Priority Date/Time Associated Diagnosis Comments POCT URINALYSIS DIPSTICK Routine 09/11/2018 8:28 AM CDT Acute cystitis with hematuria documented in this encounter Results * (ABNORMAL) Urine culture Urine, clean voided (09/11/2018 8:31 AM CDT) Report Final Report: Less than 100,000 colonies/mL (clinically insignificant growth based on current clinical standards) Includes the following: Less than 100,000 colonies/mL Streptococcus agalactiae (Group B Streptococci) * ??* ??* ??* ??* ??* ??* ??* ??* ??* ??* ??* ??* ??* ??* ??* ??* ??* ??* ??* Resistance to penicillin in Group B Streptococcus has not been reported. ??Group B Streptococci are universally susceptible to beta-lactam antibiotics and vancomycin. Routine susceptibility testing is not performed. In penicillin allergic patients, please contact the laboratory at [phone] to request susceptibility testing * ??* ??* ??* ??* ??* ??* ??* ??* ??* ??* ??* ??* ??* ??* ??* ??* ??* ??* ??* This laboratory routinely screens urine cultures for any amount of Group B Streptococcus in reproductive age women. ??Recovery of this isolate may be significant in women, however, the recovery of this organism in small quantities in non- women represents contamination with periurethral adrian. (.) ANNABELLE Comment:Testing performed by : [facility], [address] [place]., [address] Organism (CLINICALLY INSIGNIFICANT GROWTH [facility] Organism STREPTOCOCCUS AGALACTIAE (GROUP B STREPTOCOCCI) [facility] Urine, clean voided 09/11/2018 8:31 AM CDT 09/11/2018 6:56 PM CDT Narrative ANNABELLE - 09/14/2018 9:35 AM CDT Testing performed by [facility] Microbiology Laboratory ([phone]) Sveta Menendez NP LAB MICROBIOLOGY - [facility] ORDERABLES Final Result [facility] [address] Department [place] [address] * (ABNORMAL) POCT urinalysis dipstick (09/11/2018 8:28 AM CDT) Color, Urine, POC [place] Clarity, ur, POC Cloudy(A) Clear Glucose, ur, POC 250.(A) Negative mg/dL Bilirubin, ur, POC Large Negative, Small, Moderate, Large Ketones, ur, POC Small(A) Negative Specific [place], POC 1.010 1.005 - 1.030 Blood, ur, POC Small(A) Negative pH, ur, POC 5.0 5.0 - 8.0 Protein, ur, POC 3+(A) Negative Urobilinogen, urine, POC 8.0(A) 0.2 - 1.0 mg/dL Nitrite, ur, POC Positive(A ) Negative Leukocytes, ur, POC 3+(A) Negative Lot Number [id number] Urine 09/11/2018 8:28 AM CDT Sveta Isa Menendez IT PORTFOLIO MANAGER POINT OF CARE TEST OR DERABLES Final Result documented in this encounter Visit Diagnoses Diagnosis Acute cystitis with hematuria- Primary Acute cystitis with hematuria documented in this encounter Historical Medications * This list may reflect changes made after this encounter. levonorgestreL (MIRENA) IUD by intrauterine route 4 phentermine (ADIPEX-P) 37.5 mg tablet TAKE 1/2 TABLET BY MOUTH TWICE DAILY TAKE 2ND DOSE BEFORE 2PM 0 07/20/2018 2 added in this encounter Care Teams Seasoning Sprayer Relationship Specialty Start Date End Date Gadiel Majano MD [address] [place] [address] PCP - General 07/06/16 documented as of this encounter
--- OUTSIDE RECORDS SUMMARY | 2024-05-11 14:53 | XMS_ITS | Encounter Summary ---
Author Organization [facility] Healthcare Address [address] [place] [address] Care Team Providers Care Spooling Machine Operator Name Role Phone Gadiel Majano MD Primary Care Provider + Encounter Details Date Type Department Care Team (Late st Contact Info) Description 01/02/2019 9:25 PM CDT Lab [address] [id number] Urinary tract infection without hematuria, site unspecified Social History Tobacco Use Types Packs/Day Years Used Date Smoking Tobacco: Every Day Cigarettes Smokeless Tobacco: Never Alcohol Use Standard Drinks/Week Comments No 0 (1 standard drink = 0.6 oz pur e alcohol) Comments No Sex and Gender Information Value Date Recorded Sex Assigned at Not on file 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 Gender Identity Not on file Sexual Orientation Not on file documented as of this encounter Plan of Treatment Not on file documented as of this encounter Procedures Procedure Name Priority Date/Time Associated Diagnosis Comments URINE CULTURE Routine 01/02/2019 4:15 PM CDT Urinary tract infection without hematuria, site unspecified documented in this encounter Results * Urine culture Urine, clean voided (01/02/2019 4:15 PM CDT) Report Final Report: Less than 100,000 colonies/mL (clinically insignificant growth based on current clinical standards) ANNABELLE STUART Comment:Testing performed by : [facility], [address] [facility] [place] [address] Organism (CLINICALLY INSIGNIFICANT GROWTH CERKARLI STUART Urine, clean voided 01/02/2019 4:15 PM CDT 01/03/2019 12:30 AM CDT Narrative VITOKARLI SADE - 01/04/2019 8:02 AM CDT Testing performed by [facility] Microbiology Laboratory ([phone]) Sveta Menendez SOLAR SALES ENERGY ADVISOR LAB MICROBIOLOGY - [facility] ORDERABLES Final Result ANNABELLE STUART [address] Department [place] [address] documented in this encounter Visit Diagnoses Diagnosis Urinary tract infection without hematuria, site unspecified documented in this encounter Care Teams Spooling Machine Operator Relationship Specialty Start Date End Date Gadiel Majano MD [address] [place] [id number] PCP - General 07/06/16 documented as of this encounter
--- OUTSIDE RECORDS SUMMARY | 2024-05-11 14:53 | XMS_ITS | Encounter Summary ---
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 Yes Location provided for therapy services is: Patient requested/Patient preferred Comments Evaluate and Treat Reason for Visit * Reason Comments Pain Encounter Details Date Type Department Care Team (Latest Contact Info) Description 11/30/2016 9:15 AM CDT Office Visit [facility] Orthopedics and Sports Medicine [address] [place] [phone] Tiara Carlos MD [address] [place] [address] Tear of ulnar collateral ligament of left elbow, initial encounter (Primary Dx); Flexion contracture of left elbow; Neuritis of left ulnar nerve Social History Tobacco Use Types Packs/Day Years Used Date Smoking Tobacco: Every Day Alcohol Use Standard Drinks/Week Comments No 0 (1 standard drink = 0.6 oz pur e alcohol) Comments Unknown Sex and Gender Information Value Date Recorded Sex Assigned at Not on file 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 Gender Identity Not on file Sexual Orientation Not on file documented as of this encounter Last Filed Vital Signs Vital Sign Reading Time Taken Comments Blood Pressure 115/75 11/30/2016 9:30 AM CDT Pulse 73 11/30/2016 9:30 AM CDT Temperature - - Respiratory Rate - - Oxygen Saturation - - Inhaled Oxygen Concentration - - Weight 82.1 kg (181 lb) 11/30/2016 9:30 AM CDT Height 167.6 cm (5' 6 ) 11/30/2016 9:30 AM CDT Body Mass Index 29.21 11/30/2016 9:30 AM CDT documented in this encounter Patient Instructions * Patient Instructions* Tiara Carlos MD - 11/30/2016 9:15 AM CDT Over the counter medication as needed for pain. Start range of motion exercises as tolerated documented in this encounter Progress Notes * Tiara Carlos MD - 11/30/2016 9:15 AM CDT NEW PATIENT VISIT Subjective CHIEF COMPLAINT She had concerns including Pain of the Left Elbow. HISTORY OF PRESENT ILLINESS Trinh presents today with c/o left elbow pain which started 11/13/2016 when she fell down stairs.Had +bruising, +swelling at that time. Took pain medication initially, no longer is taking medication for pain as she does not like to take pain medications. Has numbness and tingling on in the 4th and 5th fingers. Pain is sharp, aching, moderate, continuous, activity related, has pain at night. Sta christy she usually has her care at [facility], but they couldn't get her in until December. Pain is worse with use and sleeping. Nothing seems to make the pain better. RHD. Pain Assessment Pain Assessment: 0-10 Pain Descriptors: Aching Pain Frequency: Constant/continuous Date Pain First Started: 11/09/16 PAST MEDICAL HISTORY She has a past medical history of Cancer (CMS/[facility]). PAST SURGICAL HISTORY She has a past surgical history that includes Tonsillectomy and Other surgical history. MEDICATIONS She has a current medication list which includes the following prescription(s): fluoxetine. ALLERGIES She is allergic to cephalexin; ciprofloxacin; nitrofurantoin monohyd/m-cryst; and sulfamethoxazole-trimethoprim. SOCIAL HISTORY She reports that she has been smoking. She does not have any smokeless tobacco history on file. Shereports that she does not drink alcohol. FAMILY HISTORY Her family history includes Cancer in her other; Diabetes in her other. REVIEW OF SYSTEMS Review of Systems Constitutional: Negative. HENT: Negative. Eyes: Glasses/contacts Respiratory: Negative. Cardiovascular: Negative. Genitourinary: Negative. Musculoskeletal: Positive for arthralgias and joint swelling. Skin: Negative. Neurological: Positive for numbness. Psychiatric/Behavioral: The patient is nervous/anxious. Objective PHYSICAL EXAM BP 115/75 Pulse 73 Ht 167.6 cm (5' 6 ) Wt 82.1 kg (181 lb) BMI 29.21 kg/m?? Right elbow The patient has normal inspection, palpation, range of motion, strength, and stability of the rightelbow. Left elbow Palpation Tenderness: present. The tenderness is location in the medial epicondyle and ulnar groove area(s). Range of motion The patient has reduced range of motion. Active elbow extension: 30. Active elbow flexion: 100. Stability The patient has abnormal stability of the left elbow. Strength Elbow extension: 4/5 Elbow flexion: 3/5 Forearm pronation: 4/5 Forearm supination: 4/5 Neurovascular The patient has normal vascular on the left side of their body. Ulnar: paresthesias Tests Varus: negative Valgus: positive Tinel's sign: positive Elbow flexion: positive REVIEW OF X-RAYS/STUDIES/LABS XR Elbow Left 3+ View Upon my review of the images, well corticated ossicle near medial epicondyle. Medial soft tissue swelling. No effusion. Assessment/Plan Trinh was seen today for pain. Diagnoses and all orders for this visit: Tear of ulnar collateral ligament of left elbow, initial encounter Flexion contracture of left elbow - XR Elbow Left 3+ View Neuritis of left ulnar nerve Plan Reviewed xray images with Trinh. Recommend PT at [facility] in [place] to start working on ROM and strength. Explained she likely tore her UCL based on exam and xray. 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 I believe this can be treated conservatively. We did discuss her surgical options which does involve a 6-9 month healing time. This may be longer as she is curren tly smoking 1ppd which will interfere with healing and puts her at higher risk for infection. Take OTC medication for pain. Will get approval for an MRI of the elbow, I will call her with the MRI results. RTC in 3-4 weeks for repeat evaluation, sooner if symptoms get worse. She is in full understanding and in agreement with the plan, and all of her questions were answered. Consider NCS/EMG if numbness and tingling get worse. 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 ??Medial soft tissue swelling. ??No effusion. 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
--- OUTSIDE RECORDS SUMMARY | 2024-05-11 14:53 | XMS_ITS | Encounter Summary ---
Author Organization [facility] Address [address] [place] [address] Care Team Providers Care Director Of Partnerships Name Role Phone Gadiel Majano MD Primary Care Provider + Encounter Details Date Type Department Care Team (Late st Contact Info) Description 07/06/2016 8:50 PM SUPERVISOR BOATBUILDERS WOOD - 07/06/2016 10:44 PM SUPERVISOR [employer]BUILD[employer] [facility] Emergency Department [address] [place] [id number] Erwin Hutchins MD [facility] [place] [address] Discharge Disposition: Discharge to home or self care Social History Tobacco Use Types Packs/Day Years Used Date Smoking Tobacco: Every Day Alcohol Use Standard Drinks/Week Comments No 0 (1 standard drink = 0.6 oz pur e alcohol) Comments Unknown Sex and Gender Information Value Date Recorded Sex Assigned at Not on file 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 Sex 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 SUPERVISOR [employer] Gender Identity Not on file Sexual Orientation Not on file documented as of this encounter Discharge Disposition Disposition Code Departure Means Destination Discharge to home or self care documented in this encounter Plan of Treatment Not on file documented as of this encounter Procedures Procedure Name Priority Date/Time Associated Diagnosis Comments URINE CHORIONIC GONADOTROPIN (HCG) Routine 07/06/2016 10:00 PM SUPERVISOR [employer] URINALYSIS Routine 07/06/2016 10:00 PM SUPERVISOR [employer] documented in this encounter Results * Urine chorionic gonadotropin (HCG) (07/06/2016 10:00 PM SUPERVISOR [employer]) HCG, ur Negative Negative CDR HISTOR ICAL RESULTS Urine 07/06/2016 10:0 0 PM SUPERVISOR [employer] [facility] ENTRY LEVEL JAVA DEVELOPER LAB BLOOD ORDERABLES Fi nal Result Performing Organization Address [facility] de Phone Number CDR HISTORICAL RESULTS * Urinalysis (07/06/2016 10:00 PM SUPERVISOR [employer]) Color, ur Yellow Yellow CDR HISTOR ICAL RESULTS Clarity, ur Clear Clear CDR HIST ORICAL RESULTS Specific gravity, ur 1.008 1.003 - 1.030 CDR HISTORICAL RESULTS Comment:Normal Ranges: 1.003 -1.030 pH, ur 6.0 4.5 - 8.0 CDR HISTOR ICAL RESULTS Comment:Normal ranges: 4.5-8 .0 Protein, ur, quant Negative Negative mg/dl CDR HISTORICAL RESULTS Glucose, ur, quant Negative Negative mg/dl CDR HISTORICAL RESULTS Ketones, ur Negative Negative CDR HIST ORICAL RESULTS Bilirubin, ur Negative Negative CDR HI STORICAL RESULTS U Blood Negative Negative CDR HISTOR ICAL RESULTS Urobilinogen, quant, ur 0.2 0.2 - 1.0 Petey Units/dl CDR HISTORICAL RESULTS Comment:Normal Ranges: 0.2-1 .0 EU/dL Nitrites, ur Negative Negative CDR HIS TORICAL RESULTS Leukocyte esterase, ur Negative Negative CDR HISTORICAL RESULTS Urine 07/06/2016 10:0 0 PM SUPERVISOR [employer] [facility] ENTRY LEVEL JAVA DEVELOPER LAB BLOOD ORDERABLES Fi nal Result Performing Organization Address [facility] de Phone Number CDR HISTORICAL RESULTS documented in this encounter Visit Diagnoses Not on filedocumented in this encounter Care Teams Director Of Partnerships Relationship Specialty Start Date End Date Gadiel Majano MD [address] [email or web address] [facility] [place] [phone] PCP - General 07/06/16 documented as of this encounter
--- OUTSIDE RECORDS SUMMARY | 2024-05-11 14:53 | XMS_ITS | Encounter Summary ---
Author Organization [facility] Care Team Providers Care Paper Tube Cutter Name Role Phone Gadiel Majano MD Primary Care Provider + Encounter Details Date Type Department Care Team (Latest Contact Info) Description 01/02/2019 Travel Social History Tobacco Use Types Packs/Day Years Used Date Smoking Tobacco: Every Day Cigarettes Smokeless Tobacco: Never Alcohol Use Standard Drinks/Week Comments No 0 (1 standard drink = 0.6 oz pur e alcohol) Comments No Sex and Gender Information Value Date Recorded Sex Assigned at Not on file 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
--- OUTSIDE RECORDS SUMMARY | 2024-05-11 14:53 | XMS_ITS | Encounter Summary ---
Author Organization [facility] Care Team Providers Care Dietitian Therapeutic Name Role Phone Gadiel Majano MD Primary Care Provider + Encounter Details Date Type Department Care Team (Latest Contact Info) Description 09/11/2018 Travel Social History Tobacco Use Types Packs/Day Years Used Date Smoking Tobacco: Every Day Alcohol Use Standard Drinks/Week Comments No 0 (1 standard drink = 0.6 oz pur e alcohol) Comments Unknown Sex and Gender Information Value Date Recorded Sex Assigned at Not on file Legal Sex 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 PATIENT CARE SECRETARY Gender Identity Not on file Sexual Orientation Not on file documented as of this encounter Plan of Treatment Not on file documented as of this encounter Visit Diagnoses Not on filedocumented in this encounter Care Teams Dietitian Therapeutic Relationship Specialty Start Date End Date Gadiel Majano MD [address] [facility] [place] [id number] PCP - General 07/06/16 documented as of this encounter
--- OUTSIDE RECORDS SUMMARY | 2024-05-11 14:53 | XMS_ITS | Encounter Summary ---
Author Organization [facility] Healthcare Address [address] [place] [address] Care Team Providers Care Manager Switch Name Role Phone Gadiel Majano MD Primary Care Provider + Encounter Details Date Type Department Care Team (Late st Contact Info) Description 06/03/2013 3:10 PM MULTIPLE NEEDLE STITCHER - 06/03/2013 11:59 PM MULTIPLE NEEDLE STITCHER Hospital Encounter [facility] Social History Tobacco Use Types Packs/Day Years Used Date Smoking Tobacco: Every Day Alcohol Use Standard Drinks/Week Comments No 0 (1 standard drink = 0.6 oz pur e alcohol) Comments Unknown Sex and Gender Information Value Date Recorded Sex Assigned at Not on file Legal Sex 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 MULTIPLE NEEDLE STITCHER Gender Identity Not on file Sexual Orientation Not on file documented as of this encounter Plan of Treatment Not on file documented as of this encounter Visit Diagnoses Not on filedocumented in this encounter Care Teams Manager Switch Relationship Specialty Start Date End Date Gadiel Majano MD [address] [place] [phone] PCP - General 02/23/11 07/05/16 documented as of this encounter
--- OUTSIDE RECORDS SUMMARY | 2024-05-11 14:53 | XMS_ITS | Encounter Summary ---
Author Organization [facility] Healthcare Address [address] [place] [address] Care Team Providers Care Case Maker Name Role Phone Gadiel Majano MD Primary Care Provider + Reason for Visit * Reason Comments Abdominal Cramping Diarrhea Encounter Details Date Type Department Care Team (Late st Contact Info) Description 05/30/2022 11:20 AM MATERIAL CARRIER - 05/30/2022 1:45 PM MATERIAL CARRIER Emergency [facility] Emergency Department [address] [place] [id number] Traveler's diarrhea (Primary Dx); Nausea and vomiting, unspecified vomiting type Discharge Disposition: Discharge to home or self care Social History Tobacco Use Types Packs/Day Years Used Date Smoking Tobacco: Every Day Cigarettes Smokeless Tobacco: Never Alcohol Use Standard Drinks/Week Comments No 0 (1 standard drink = 0.6 oz pur e alcohol) Comments No Sex and Gender Information Value Date Recorded Sex Assigned at Not on file Legal Sex 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 MATERIAL CARRIER Gender Identity Not on file Sexual Orientation Not on file documented as of this encounter Last Filed Vital Signs Vital Sign Reading Time Taken Comments Blood Pressure 120/73 05/30/2022 1:45 PM MATERIAL CARRIER Pulse 73 05/30/2022 1:45 PM MATERIAL CARRIER Temperature 36.5 ??C (97.7 ??F) 05/30/2022 11:[address] Respiratory Rate 15 05/30/2022 1:45 PM MATERIAL CARRIER Oxygen Saturation 100% 05/30/2022 1:45 PM MATERIAL CARRIER Inhaled Oxygen Concentration - - Weight 74.6 kg (164 lb 7.4 oz) 05/30/2022 11:08 AM MATERIAL CARRIER Height 165.1 cm (5' 5 ) 05/30/2022 11:08 AM MATERIAL CARRIER Body Mass Index 27.37 05/30/2022 11:08 AM MATERIAL CARRIER documented in this encounter Discharge Instructions * Discharge Instructions* Delroy Morrison PA - 05/30/2022 1:27 PM MATERIAL CARRIER As discussed, please return to the ER if you develop bloody diarrhea or fever. Your labs and CT scan were all very reassuring today. Follow-up as recommended is mandatory. You have received emergency care only at your visit today. This is not a substitute for ongoing care, further evaluation and treatment and therefore follow-up as directed is not optional but mandatory You MUST follow up for further evaluation of all incidental abnormal radiographic and laboratory findings, Have your physician obtain records from this visit and address all the incidental abnormal findings. This may include final results of lab testing, cultures, final x-ray reports which may not have been available during the time of the visit. Return immediately for any new symptoms, worsening of symptoms, or persistent symptoms RIAL CARRIER * Attachments The following attachments cannot be sent through Care Everywhere. * Acute Nausea and Vomiting (Discharge Care) ([place]) documented in this encounter Medications at Time of Discharge levonorgestreL (MIRENA) IUD by intrauterine route 07/12/19 24 ondansetron ODT (ZOFRAN-ODT) 4 mg disintegrating tablet Take 1 tablet (4 mg total) by mouth every 8 (eight) hours as needed for nausea or vomiting 20 tablet 3 07/12/19 24 documented as of this encounter Ordered Prescriptions Prescription Sig Dispense Quantity Refills Last Filled Start Date End Date ondansetron ODT (ZOFRAN-ODT) 4 mg disintegrating tablet Take 1 tablet (4 mg total) by mouth every 8 (eight) hours as needed for nausea or vomiting 20 tablet 05/30/2022 4 documented in this encounter Discharge Disposition Disposition Code Departure Means Destination Discharge to home or self care documented in this encounter ED Notes * Delroy Morrison PA - 05/30/2022 11:18 AM CST HPI Chief Complaint Patient presents with Abdominal Cramping Diarrhea HPI 11:18 AM Trinh Corral is a 31 y.o. female presenting to the ED with c/c of n/v starting this AM. Also generalized abdominal cramping and two episodes of loose stools today. Pt recently returned from [place] about one week ago. Denies hematochezia, fever, irritative voiding sx. No abdominal surgical hx. Patient History: No past medical history on file. Past Surgical History: Procedure Laterality Date OTHER SURGICAL HISTORY right neck lymph node removed for biopsy TONSILLECTOMY Tonsillectomy Family History Problem Relation Age of Onset Cancer Other Family history of cancer; Diabetes Other Family history of Diabetes mellitus; Bone cancer Mother Multiple myeloma Brother Social History Tobacco Use Smoking status: Every Day Packs/day: 1.00 Types: Cigarettes Smokeless tobacco: Never Substance and Sexual Activity Drug use: Not on file Sexual activity: Not on file Alcohol Use: Not on file Current Facility-Administered Medications: Lactated Ringer's (LR) bolus 1,000 mL, 1,000 mL, intravenous, Once Current Outpatient Medications: levonorgestreL (MIRENA) IUD Review of Systems Review of Systems Constitutional: Negative for fever. HENT: Negative for congestion. Eyes: Negative for redness. Respiratory: Negative for cough. Cardiovascular: Negative for chest pain. Gastrointestinal: Positive for abdominal pain, diarrhea, nausea and vomiting. Negative for blood instool. Genitourinary: Negative for dysuria. Musculoskeletal: Negative for myalgias. Neurological: Negative for weakness. Psychiatric/Behavioral: Negative for confusion. Physical Exam ED Triage Vitals [05/30/22 1108] Temp Pulse Resp BP SpO2 36.5 ??C (97.7 ??F) 76 16 116/77 100 % Temp src Heart Rate Source Patient Position BP Location FiO2 (%) Oral -- -- -- -- Height Height Method Weight Weight Method 1.651 m (5' 5 ) Stated 74.6 kg (164 lb 7.4 oz) Standing scale Physical Exam Vitals and nursing note reviewed. Constitutional: General: She is not in acute distress. Appearance: Normal appearance. She is not ill-appearing or toxic-appearing. HENT: Head: Normocephalic and atraumatic. Right Ear: External ear normal. Left Ear: External ear normal. Nose: Nose normal. Mouth/Throat: Mouth: Mucous membranes are moist. Eyes: Extraocular Movements: Extraocular movements intact. Pupils: Pupils are equal, round, and reactive to light. Cardiovascular: Rate and Rhythm: Normal rate and regular rhythm. Heart sounds: Normal heart sounds. No murmur heard. No friction rub. No gallop. Pulmonary: Effort: Pulmonary effort is normal. Breath sounds: Normal breath sounds. Abdominal: General: Bowel sounds are normal. There is no distension. Palpations: Abdomen is soft. There is no mass. Tenderness: There is no abdominal tenderness. There is no guarding. Musculoskeletal: General: No deformity. Normal range of motion. Cervical back: Normal range of motion. Skin: General: Skin is warm and dry. Capillary Refill: Capillary refill takes less than 2 seconds. Neurological: General: No focal deficit present. Mental Status: She is alert and oriented to person, place, and time. Psychiatric: Mood and Affect: Mood normal. Procedures MDM Labs Reviewed URINALYSIS AND REFLEX TO MICROSCOPIC AND CULTURE CBC WITH AUTO DIFFERENTIAL COMPREHENSIVE METABOLIC PANEL DIFFERENTIAL AUTO POCT HCG, URINE No orders to display BP 116/77 Pulse 76 Temp 36.5 ??C (97.7 ??F) (Oral) Resp 16 Ht 165.1 cm (5' 5 ) Wt 74.6 kg(164 lb 7.4 oz) SpO2 100% BMI 27.37 kg/m?? ED Course: 1200 Pt feeling improved with Zofran and fluids. Leukocytosis 15.7. CT a/p pending. 1330 Pt feeling improved. Remainder of labs and CT a/p reassuring. UA WNL. Leukocytosis noted but no blood emesis or hematochezia. Afebrile, SNT abdomen. Will hold off on abx at this time. Pt stable for d/c with antiemetics. Return precautions advised. Clinical Impression: Traveler's diarrhea Nausea and vomiting, unspecified vomiting type Delroy Morrison PA 05/30/22 1328 Cosigned by Jean Crabtree MD at 05/30/2022 3:55 PM MATERIAL CARRIER RIAL CARRIER RIAL CARRIER Associated attestation - Jean Crabtree MD - 05/30/2022 3:55 PM MATERIAL CARRIER ED Attestation I did not see this patient. However, I was personally available for consultation in the ED for thispatient if the Advanced Practice Provider (BERNARD) needed any assistance. The BERNARD evaluated the patient independently and completed their own examination, documentation, and disposition. * Diana Reddy RN - 05/30/2022 11:06 AM CST Recent travels to [place], Abd cramping and diarrhea onset pasty 5 days, nausea with vomiting onset today. No fevers, no blood in stools or emesis RIAL CARRIER documented in this encounter Plan of Treatment Not on file documented as of this encounter Procedures Procedure Name Priority Date/Time Associated Diagnosis Comments CT ABDOMEN PELVIS WO CONTRAST ED 05/30/2022 12:39 PM MATERIAL CARRIER POCT HCG, URINE STAT 05/30/2022 12:15 PM MATERIAL CARRIER URINALYSIS AND REFLEX TO MICROSCOPIC AND CULTURE STAT 05/30/2022 12:13 PM MATERIAL CARRIER EGFR STAT 05/30/2022 11:13 AM MATERIAL CARRIER DIFFERENTIAL AUTO STAT 05/30/2022 11: 13 AM MATERIAL CARRIER CBC WITH AUTO DIFFERENTIAL STAT 05/30/2022 11:13 AM MATERIAL CARRIER COMPREHENSIVE METABOLIC PANEL STAT 05/30/2022 11:13 AM MATERIAL CARRIER documented in this encounter Results * CT Abdomen Pelvis WO Contrast (05/30/2022 12:39 PM MATERIAL CARRIER) Anatomical Region Laterality Modality Body N/A Computed Tomogra phy 05/30/2022 12:5 8 PM MATERIAL CARRIER Narrative 05/30/2022 1:08 PM MATERIAL CARRIER EXAM DESCRIPTION: ?? CT ABDOMEN PELVIS WO CONTRAST REASON FOR STUDY: ?? Abdominal pain, acute, nonlocalized ?? Recent travels to [place], Abd cramping and diarrhea onset past 5 days, ??nausea with vomiting onset today. No fevers, no blood in stools or emesis ??IUD ?? TECHNIQUE: CT scan of the abdomen and pelvis performed without intravenous and ??without ??oral contrast using helical scanning technique. Reconstructed coronal and sagittal MPR images reviewed. All images stored on PACS. ?? Automated exposure control was used as a dose optimization technique for this examination. COMPARISON: ?? None available FINDINGS: The sensitivity for detection of visceral lesions is diminished without the use of intravenous contrast. LOWER CHEST: ?? No significant pulmonary abnormalities. No effusion. LIVER: ?? Normal size. ??No identified cystic or solid masses. GALLBLADDER: ?? Normally distended BILE DUCTS: ?? No intrahepatic or extrahepatic ductal dilatation. SPLEEN: ?? Normal size. ??No focal lesions. PANCREAS: ?? No identified cystic or solid masses. ??No significant calcifications. No adjacent inflammation or peripancreatic fluid collections. Pancreatic duct not dilated. ADRENALS: ?? Normal. KIDNEYS/URINARY TRACT: ?? The right kidney demonstrates no stone or hydronephrosis. ??No perinephric stranding. ??Subtle prominence of the renal pelvis may indicate an extrarenal pelvis with minimal inflammatory change or pyelonephritis not excluded. ?? Please correlate clinically and with urinalysis. The left kidney demonstrates no stone, hydronephrosis or perinephric stranding. ??No hydroureter. ?Urinary bladder is unremarkable. GI: ?? Stomach and transverse duodenum appear unremarkable. ??Proximal and mid small bowel have normal caliber. Distal small bowel demonstrates subtle suggestion of wall thickening and adjacent induration which could indicate changes of enteritis. ??Please correlate clinically. ??Terminal ileum appears slightly less involved. ??The cecum and appendix appear normal. ??The colon appears unremarkable. PERITONEUM: ?? No ascites or free air. RETROPERITONEUM: ?? No mass or adenopathy. REPRODUCTIVE: ?? Uterus is normal in size and position and contains an intrauterine device normally positioned. VASCULATURE: ?? No abdominal aortic aneurysm. MUSCULOSKELETAL: ?? No significant abnormality. OTHER: ?? No other abnormality. IMPRESSION: ?? Subtle prominence right renal pelvis with slight induration may be artifactual though subtle changes of pyelonephritis are difficult to exclude. ??Please correlate clinically and with urinalysis. Distal small bowel demonstrates wall thickening and subtle surrounding induration suggesting enteritis. ??Please correlate clinically. REFERENCE: Unless otherwise specified, no follow-up imaging is recommended for incidental renal and adrenal lesions per consensus recommendations based on imaging criteria. Further lab evaluation could be pursued based on clinical findings. Management of the Incidental Renal Mass on CT: A White Paper of the ACR Incidental Findings Committee. J Am Clarisse Radiol. 2018 Jun;15(2):264-273. Management of Incidental Adrenal Masses: A White Paper of the ACR Incidental Findings Committee. J Am Clarisse Radiol. 2017 Dec;14(8):9335-9774. THIS IS AN ELECTRONICALLY VERIFIED FINAL REPORT 05/30/2022 1:08 PM - Electronically signed by ??Jairo Noguera M.D. RB: JORGE D: ??05/30/2022 1:08 PM T: ??05/30/2022 1:08 PM Report ID: [id number] Reading Location: ??[id number] Procedure Note Jairo Noguera MD - 05/30/2022 EXAM DESCRIPTION: CT ABDOMEN PELVIS WO CONTRAST REASON FOR STUDY: Abdominal pain, acute, nonlocalized Recent travels to [place], Abd cramping and diarrhea onset past 5 days,nausea with vomiting onset today. No fevers, no blood in stools or emesis IUD TECHNIQUE: CT scan of the abdomen and pelvis performed without intravenousand without oral contrast using helical scanning technique. Reconstructed coronal and sagittal MPR images reviewed. All images stored on PACS. Automated exposure control was used as a dose optimization technique forthis examination. COMPARISON: None available FINDINGS: The sensitivity for detection of visceral lesions is diminished without the use of intravenous contrast. LOWER CHEST: No significant pulmonary abnormalities. No effusion. LIVER: Normal size. No identified cystic or solid masses. GALLBLADDER: Normally distended BILE DUCTS: No intrahepatic or extrahepatic ductal dilatation. SPLEEN: Normal size. No focal lesions. PANCREAS: No identified cystic or solid masses. No significant calcifications. No adjacent inflammation or peripancreatic fluidcollections. Pancreatic duct not dilated. ADRENALS: Normal. KIDNEYS/URINARY TRACT: The right kidney demonstrates no stone or hydronephrosis. No perinephric stranding. Subtle prominence of the renal pelvis may indicate anextrarenal pelvis with minimal inflammatory change or pyelonephritis not excluded. Please correlate clinically and with urinalysis. The left kidney demonstrates no stone, hydronephrosis or perinephric stranding. No hydroureter. Urinary bladder is unremarkable. GI: Stomach and transverse duodenum appear unremarkable. Proximal andmid small bowel have normal caliber. Distal small bowel demonstrates subtle suggestion of wall thickening and adjacent induration which could indicate changes of enteritis. Please correlate clinically. Terminal ileum appears slightly less involved. The cecum and appendix appear normal. The colon appears unremarkable. PERITONEUM: No ascites or free air. RETROPERITONEUM: No mass or adenopathy. REPRODUCTIVE: Uterus is normal in size and position and contains an intrauterine device normally positioned. VASCULATURE: No abdominal aortic aneurysm. MUSCULOSKELETAL: No significant abnormality. OTHER: No other abnormality. IMPRESSION: Subtle prominence right renal pelvis with slight indurationmay be artifactual though subtle changes of pyelonephritis are difficult to exclude. Please correlate clinically and with urinalysis. Distal small bowel demonstrates wall thickening and subtle surrounding induration suggesting enteritis. Please correlate clinically. REFERENCE: Unless otherwise specified, no follow-up imaging is recommendedfor incidental renal and adrenal lesions per consensus recommendations basedon imaging criteria. Further lab evaluation could be pursued based onclinical findings. Management of the Incidental Renal Mass on CT: A White Paper of the ACR Incidental Findings Committee. J Am Clarisse Radiol. 2018 Jun;15(2):264-273. Management of Incidental Adrenal Masses: A White Paper of the ACRIncidental Findings Committee. J Am Clarisse Radiol. 2017 Dec;14(8):2975-6388. THIS IS AN ELECTRONICALLY VERIFIED FINAL REPORT 05/30/2022 1:08 PM - Electronically signed by Jairo Noguera M.D. RB: JORGE Report ID: [id number] Reading Location: [id number] Delroy GONZALEZ IMG CT PROCEDURES Final R esult * POCT hCG, urine (05/30/2022 12:15 PM MATERIAL CARRIER) HCG, ur, POC Negative Lot Number [id number] QC Backgroud Clear Acceptable QC Control Line Acceptable Urine 05/30/2022 12:1 5 PM MATERIAL CARRIER Delroy GONZALEZ POINT OF CARE TEST ORDERA BLES Final Result * Urinalysis reflex to microscopic and culture Urine (05/30/2022 12:13 PM MATERIAL CARRIER) Color, ur Yellow Yellow ANNABELLE Comment:Testing performed by : [facility], [address] [place] [address]., [address] Clarity, ur Clear Clear ANNABELLE Comment:Testing performed by : [address] [address] Specific gravity, ur 1.013 1.003 - 1.030 ANNABELLE Comment:Testing performed by : [address] [address] pH, urine 5.0 ANNABELLE Comment:Testing performed by : [address] [address] Protein, ur ql Negative Negative ANNABELLE Comment:Testing performed by : [address] [address] Glucose, ur ql Negative Negative ANNABELLE Comment:Testing performed by : [address] [address] Ketones, ur Negative Negative ANNABELLE Comment:Testing performed by : [address] [address] Bilirubin, ur Negative Negative ANNABELLE Comment:Testing performed by : [address] [address] Blood, ur Negative Negative ANNABELLE Comment:Testing performed by : [address] [address] Urobilinogen, ur <2.0 <2.0 mg/dL ANNABELLE Comment:Testing performed by : [address] [address] Nitrite, ur Negative Negative ANNABELLE Comment:Testing performed by : [address] [address] Leukocyte esterase, ur Negative Negative ANNABELLE Comment:Testing performed by : [facility], [address] [place] [address]., [address] UA reflex comment Reflex conditions for microscopic UA and culture not met. ANNABELLE Comment:Testing performed by : [facility], [address] [place] [address]., [id number] Urine 05/30/2022 12:1 3 PM MATERIAL CARRIER 05/30/2022 12:20 PM MATERIAL CARRIER Narrative ANNABELLE - 05/30/2022 12:25 PM MATERIAL CARRIER ?? Urine pH is affected by diet, medications, systemic acid-base disturbances, and renal tubular function. ??pH may affect urinary stone formation. ??For example, urine pH below 6.0 may help reduce the tendency for calcium phosphate stones and pH greater than 6.0 may reduce the tendency for uric acid stone formation. Source: [facility]. Last revised 06-03-2017 Dleroy GONZALEZ LAB MICROBIOLOGY - GENERA L ORDERABLES Final Result ANNABELLE [address] [facility] Department [place] [address] * eGFR (05/30/2022 11:13 AM MATERIAL CARRIER) eGFR 119 mL/min/1. 73 m2 ANNABELLE Comment: Interpretive Data Reference Interval Normal ?>/= 90 mL/min/1.73m2 Mildly decreased* ? 60 - 89 mL/min/1.73m2 Mildly to moderately decreased ?45 - 59 mL/min/1.73m2 Moderately to severely decreased ??30 - 44 mL/min/1.73m2 Severely decreased ?15 - 29 mL/min/1.73m2 Kidney Failure ?< 15 ??mL/min/1.73m2 *Relative to young adult level Estimated glomerular filtration rate is determined by the 2020 CKD-EPI equation recommended by the National Kidney Foundation (A Unifying Approach to GFR Estimation: Recommendations of the NKF-ASK Task Force on Reassessing the Inclusion of Race in Diagnosing Kidney Disease, JASN 2020). The CKD-EPI equation should not be used for patients with unstable renal function and has not been validated in children and those over 70. Current interpretive data was last reviewed 2021. Testing performed by: [address] [address] Blood 05/30/2022 11:1 3 AM MATERIAL CARRIER 05/30/2022 11:17 AM MATERIAL CARRIER us Delroy GONZALEZ LAB BLOOD ORDERABLES Enma l Result ANNABELLE [address] [facility] Department [place] [address] * (ABNORMAL) Differential, auto (05/30/2022 11:13 AM MATERIAL CARRIER) Neutrophil abs 12.5(H) 1.7 - 6.5 K/cumm ANNABELLE Comment:Testing performed by : [address] [address] Imm gran abs 0.1 0.0 - 0.1 K/cumm ANNABELLE Comment:Testing performed by : [address] [address] Lymphocyte abs 1.4 0.8 - 3.3 K/cumm ANNABELLE Comment:Testing performed by : [address] [address] Monocyte abs 1.6(H) 0.2 - 0.8 K/cumm ANNABELLE Comment:Testing performed by : [address] [address] Eosinophil abs 0.2 0.0 - 0.5 K/cumm ANNABELLE Comment:Testing performed by : [address] [address] Basophil abs 0.0 0.0 - 0.1 K/cumm ANNABELLE Comment:Testing performed by : [address] [address] Neutrophil pct 79.2 % ANNABELLE Comment: Interpretive Data Percent cell count reference ranges are not reported, since discordance with absolute values may lead to misinterpretation of CBC data. Current Interpretive Data was last revised on 2017. Testing performed by: [address] [address] Imm gran pct 0.3 % [facility] Comment: Interpretive Data Percent cell count reference ranges are not reported, since discordance with absolute values may lead to misinterpretation of CBC data. Current Interpretive Data was last revised on 2017. Testing performed by: [address] [address] Lymphocyte pct 8.8 % [facility] Comment: Interpretive Data Percent cell count reference ranges are not reported, since discordance with absolute values may lead to misinterpretation of CBC data. Current Interpretive Data was last revised on 2017. Testing performed by: [address] [address] Monocyte pct 9.9 % [facility] Comment: Interpretive Data Percent cell count reference ranges are not reported, since discordance with absolute values may lead to misinterpretation of CBC data. Current Interpretive Data was last revised on 2017. Testing performed by: [address] [address] Eosinophil pct 1.5 % ANNABELLE Comment: Interpretive Data Percent cell count reference ranges are not reported, since discordance with absolute values may lead to misinterpretation of CBC data. Current Interpretive Data was last revised on 2017. Testing performed by: [address] [address] Basophil pct 0.3 % [facility] Comment: Interpretive Data Percent cell count reference ranges are not reported, since discordance with absolute values may lead to misinterpretation of CBC data. Current Interpretive Data was last revised on 2017. Testing performed by: [address] [address] Blood 05/30/2022 11:1 3 AM MATERIAL CARRIER 05/30/2022 11:17 AM MATERIAL CARRIER us Delroy GONZALEZ LAB BLOOD ORDERABLES Enma chery Result ANNABELLE [address] [facility] Department [place] [address] * Comprehensive metabolic panel (05/30/2022 11:13 AM MATERIAL CARRIER) Sodium 137 135 - 145 mmol/L ANNABELLE Comment:Testing performed by : [address] [address] Potassium, pl 4.0 3.3 - 4.9 mmol/L ANNABELLE Comment:Testing performed by : [address] [address] Chloride 104 97 - 110 mmol/L ANNABELLE Comment:Testing performed by : [address] [address] CO2 25 22 - 32 mmol/L ANNABELLE Comment:Testing performed by : [address] [address] Anion gap 8 2 - 15 mmol/L ANNABELLE Comment:Testing performed by : [address] [address] BUN 10 8 - 25 mg/dL ANNABELLE Comment:Testing performed by : [address] [address] Creatinine 0.70 0.60 - 1.10 mg/dL ANNABELLE Comment:Testing performed by : [address] [address] Glucose 100 70 - 199 mg/dL ANNABELLE Comment: Interpretive Data Fasting glucose >/= 126 [...] Current interpretive data was last revised 2017. Testing performed by: [address] [address] Calcium 9.4 8.5 - 10.3 mg/dL ANNABELLE Comment:Testing performed by : [address] [address] Bilirubin, total 0.4 0.1 - 1.2 mg/dL ANNABELLE Comment:Testing performed by : [address] [address] Protein, pl 7.0 6.5 - 8.5 g/dL ANNABELLE Comment:Testing performed by : [address], [address] Albumin 4.6 3.5 - 5.0 g/dL ANNABELLE Comment:Testing performed by : [address] [address] Alk phos 69 40 - 130 Units/L ANNABELLE Comment:Testing performed by : [address] [address] ALT 21 7 - 45 Units/L ANNABELLE Comment:Testing performed by : [address] [address] AST 18 10 - 45 Units/L ANNABELLE Comment:Testing performed by : [address] [id number] Blood 05/30/2022 11:1 3 AM MATERIAL CARRIER 05/30/2022 11:17 AM MATERIAL CARRIER us Delroy GONZALEZ LAB BLOOD ORDERABLES Enma l Result [facility] [address] [facility] Department [place] [address] * (ABNORMAL) CBC with auto differential (05/30/2022 11:13 AM MATERIAL CARRIER) [facility] WBC 15.7(H) 3.8 - 9.9 K/cumm ANNABELLE Comment:Testing performed by : [address] [address] Hgb 14.4 11.9 - 15.5 g/dL ANNABELLE Comment:Testing performed by : [address] [address] Hct 42.0 35.6 - 45.5 % ANNABELLE Comment:Testing performed by : [address] [address] Plt 232 150 - 400 K/cumm ANNABELLE Comment:Testing performed by : [address] [address] MPV 10.6 9.1 - 12.3 fL ANNABELLE Comment:Testing performed by : [address], [address] RBC 4.52 3.90 - 5.20 M/cumm ANNABELLE Comment:Testing performed by : [address] [address] MCV 92.9 81.3 - 96.4 fL ANNABELLE Comment:Testing performed by : [address] [address] MCH 31.9 27.1 - 33.3 pg ANNABELLE Comment:Testing performed by : [address] [address] MCHC 34.3 32.3 - 35.7 g/dL ANNABELLE Comment:Testing performed by : [address] [address] RDW CV 12.2 11.1 - 14.9 % ANNABELLE Comment:Testing performed by : [address] [address] RDW SD 42.1 35.7 - 48.1 fL ANNABELLE Comment:Testing performed by : [address] [address] NRBC abs 0.00 0.00 - 0.01 K/cumm ANNABELLE Comment:Testing performed by : [address] [address] Blood 05/30/2022 11:1 3 AM MATERIAL CARRIER 05/30/2022 11:17 AM MATERIAL CARRIER us Delroy GONZALEZ LAB BLOOD ORDERABLES Enma chery Result ANNABELLE [address] [facility] Department [place] [address] documented in this encounter Visit Diagnoses Diagnosis Traveler's diarrhea- Primary Infectious diarrhea Nausea and vomiting, unspecified vomiting type documented in this encounter Administered Medications Inactive Administered Medications - up to 3 most recent administrations Medication Order MAR Action Action Date Dose Rate Site Lactated Ringer's (LR) bolus 1,000 mL 1,000 mL, intravenous, Once, On 05/30/22 at 1109, For 1 dose New Bag 05/30/2022 11:19 AM MATERIAL CARRIER 1,000 mL Lactated Ringer's (LR) bolus 1,000 mL 1,000 mL, intravenous, Once, On 05/30/22 at 1204, For 1 dose New Bag 05/30/2022 12:25 PM MATERIAL CARRIER 1,000 mL ondansetron (ZOFRAN) injection 4 mg 4 mg, intravenous, Administer over 2 Minutes, Once, On 05/30/22 at 1120, For 1 dose Given 05/30/2022 11:23 AM MATERIAL CARRIER 4 mg documented in this encounter Active and Recently Administered Medications Times are shown in MATERIAL CARRIER. Scheduled Medication Order 05/28/2022 05/29/2022 05/30/2022 Lactated Ringer's (LR) bolus 1,000 mL (COMPLETED) 1,000 mL, intravenous, Once, On 05/30/22 at 1109, For 1 dose 1119 (New Bag - Prov ider: Arlet Arana RN)1344 (Stopped - Provider: Lynne Maxwell RN) Lactated Ringer's (LR) bolus 1,000 mL (COMPLETED) 1,000 mL, intravenous, Once, On 05/30/22 at 1204, For 1 dose 1225 (New Bag - Prov ider: Vaishnavi Xie RN)1225 (Stopped - Provider: Vaishnavi Xie RN) ondansetron (ZOFRAN) injection 4 mg (COMPLETED) 4 mg, intravenous, Administer over 2 Minutes, Once, On 05/30/22 at 1120, For 1 dose 1123 (Given - Provid er: Arlet Arana RN) documented in this encounter Orders IV Count Last Ordered Date First Orde red Date SALINE LOCK IV 1 05/30/2022 documented in this encounter Care Teams Case Maker Relationship Specialty Start Date End Date Gadiel Majano MD [address] [place] [address] PCP - General 07/06/16 documented as of this encounter
--- OUTSIDE RECORDS SUMMARY | 2024-05-11 14:53 | XMS_ITS | Encounter Summary ---
Author Organization [facility] Address [address] [facility] [address] [place] [address] Care Team Providers Care Lens Grinder Name Role Phone aGdiel Majano MD Primary Care Provider + Reason for Visit * Reason Comments Initial Psychiatric Evaluation Encounter Details Date Type Department Care Team (Late st Contact Info) Description 11/05/2016 11:00 AM CDT Office Visit [facility] [address] [phone] [place] Kim[place] MD [id number] [place] [id number] Moderate episode of recurrent major depressive disorder (CMS/HCC); KARIME (generalized anxiety disorder) Social History Tobacco Use Types Packs/Day Years Used Date Smoking Tobacco: Every Day Alcohol Use Standard Drinks/Week Comments No 0 (1 standard drink = 0.6 oz pur e alcohol) Comments Unknown Sex and Gender Information Value Date Recorded Sex Assigned at Not on file 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 30 tablet/capsule 3 11/13/2016 11/13/2017 documented in this encounter Progress Notes * Isiah Kimball MD - 11/05/2016 11:00 AM CDT Psychiatric Assessment Patient Name: Trinh Corral Date of : 1990 Today's Date: November 05, 2016- Referred by/consult requested by: Self/friend Lawsuit: Denies Disability: Denies Identifying information: 26-year-old single, never woman currently residing in [facility]. She is deemed to be a reliable historian. Chief complaint: ???I???ve had anxiety, but more recently I develop some depression.?? History of Present Illness: This is my first time seeing the patient. She is here today with complaints of anxiety and depression. She is not currently taking any medications. She presents today with complaints of anxiety and depression. She has been seeing a therapist who suggested that she consider medication. She describes episodic dysphoric mood without obvious relationship to any situational factor. She feels like she wants to ???crawl out of her skin?? and get away from everyone. She denies any suicidal or homicidal thoughts. Denies any auditory or visual hallucinations. She does endorse feelings of helplessness, hopelessness, and worthlessness. She describes a sense of panic-not necessarily a sad or depressed mood per se. She has had 4 of these episodes in which she has 4 days of acute dysphoric mood without obvious impetus. There is no report any alcohol or drug use in proximity to these events. They have happened multiple times without obvious etiology. She feels during these times that she wants to quit her job, move away, get everyone out of her life. She continues to go to work during these sgtnm-[id number]-rnb it???s dreadful for her to do so. Identified stressors potentially in her life at any given point could include her father, in the past her brother who has had Hodgkin???s lymphoma and multiple myeloma (in remission now), and her mother who had a chordoma in her 50s. Psychiatric ROS: Mood: fine Depressed: None Anxious: Moderate Angry: Mild Mood swings: Mild Sleep: Severe Appetite: None Concentration: None Energy level: Low Halucinations: None Paranoid ideation: None Suicidal ideation: Denies Homicidal ideation: Denies Relationship issues: Denies Loss: Denies Medical History: Medical problems: Lower back problems/kyphosis Medications: None-has IUD for the past 4 years Primary Care Doctor: Gadiel Kazdan, M.D. Medical ROS: None Chronic pain: Lower back Allergies: Keflex-hives Bactrim-hives Ciprofloxacin-hives Surgeries: Tonsillectomy, lymph node biopsy anterior cervical-benign Psychiatric History: Diagnoses: None Anxiety: Diagnosed by primary care physician when she was 19. She denies any history of formal diagnosis for generalized anxiety disorder, panic disorder, ADHD, bipolar disorder, anorexia, bulimia, binge eating disorder, PTSD, OCD. Hospitalizations: None Suicide attempts: None Previous medications: ?? Lexapro-felt tired all the time ???like a zombie?? . Dose unknown. ?? Wellbutrin-???hurt her stomach?? . ?? Xanax-never worked/made her sleep Current medications: ?? None Psychiatrist: None Current: Past: Therapist: Current-Tiffany Fontanez-has been seen for the past 2 half years. Started seeing her for anxiety related to generalized issues. Past fixed income portfolio manager: No Substance Abuse Treatment: Denies Family medical history: Mother: 56 years issues, alive. ???Hard working, single mother.?? She does not have any mental health or substance use issues. Has a positive relationship with her mother. 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 . Father: 60 years old, alive. ???Conservative, traditional.?? He does not reportedly have any mental health or substance use issues. Only speaks with her father 4 times per year. Works for an [employer] as a ???oil movement manufacturing worker?? . Social History: Born: [place], [place] Raised: [place], [place] Parents: Grew up with only her mother. She had visitation with her father every other weekend. Her mother became with her and her parents. At the age of 9 months. They were subsequently onlymarried for 2 years in total duration. Her parents are unable to get along with one another-are described as complete opposites and cannot be in the same room together. Siblings: One half yyjcgmz-lspzjml-Rges -32 years old. Positive relationship with him. Childhood: Good Culture: Brother was a father figure to her-7 years older. Optimistic: 80 Pessimistic: 20 Self-description: ???Ambitious, hard-working, smart.?? Negative attributions are being opinionated???to a fault?? . Sexual orientation: Heterosexual Social support network: My mom, by friends. Abuse or neglect: Denies Grades: Elementary: A Middle: A High: A College: B???s -undergraduate. A???s-graduate school. 3 class I graduate school. [facility] [employer] [facility] [employer]-obtaining a master???s degree in business administration. Highest grade level: Currently enrolled in graduate school Relationship status: Single, not in a relationship Kids: Zero Amish: None. Her father is very judaism but she has not. 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 Financial security: Yes Exercise: CrossFit/goes to gym-3 hours per week. Tobacco: Smokes cigarettes-one pack per day since the age of 18. She is ready to quit. She has never tried to quit. Alcohol: Social only. Drugs: Denies Goals: Short: Graduate from grad school 1 year: Focus on her career/get more involved in politics 5 years: Would like to be a healthy/happy relationship 10 years: Uncertain Mental Status Examination: Age: 26 Race: Sex: Female Behavior: Normal Flow of thought: Linear Speech: Normal Rate: Normal Tone: Normal Volume: Normal Content of thought: Appropriate Insight: Good Judgment: Good Cognition: Above average-estimated Labs: None available Imaging: None available Summary: 26-year-old single, never female here today for initial psychiatric appointment. She has complaints of anxiety and depression with a significant trauma history. She would benefit from initiation of an SSRI to target symptoms of anxiety and depression. She would also benefit from insight oriented psychotherapy or dialectical behavioral therapy. She is not currently suicidal. She is not currently homicidal. She does not have any history of shelli, psychosis, or hypomania. She is not currently exhibiting any signs or symptoms of psychosis. She has transient paranoid ideation secondary to trauma during childhood. She is agreeable to proceed with treatment as recommended. Assessment & Plan: F41.1 - Generalized Anxiety Disorder - chronic, stable symptoms of Generalized Anxiety Disorder including restlessness or feeling of feeling keyed up or on edge, being easily fatigued, difficulty concentrating or mind going blank, irritability, muscle tension, and sleep disturbance. The patient reports that the anxiety, worry, or physical symptoms cause clinically significant distress or impairment in social, occupational, or other important areas of functioning. Major Depressive Disorder, Recurrent, Moderate, without Psychotic Features-would benefit from treatment with antidepressant therapy. The patient currently denies active suicidal ideation. Insight, oriented psychotherapy provided to the patient. She is agreeable to starting medication. Start Prozac 20 mg daily. Full informed consent provided by the patient to initiate/continue this medication. The patient verbalized an understanding of the reason for initiating this medication, potential side effects, reasons to discontinue or change the medication, and the need for medical monitoring on an interval basis. At this time, the patient wishes to initiate/continue this medication and understands the benefitsand risks as such. Return to clinic in: 4-6 weeks Isiah Kimball MD [facility] documented in this encounter Plan of Treatment Not on file documented as of this encounter Visit Diagnoses Diagnosis Moderate episode of recurrent major depressive disorder (HCC) KARIME (generalized anxiety disorder) Generalized anxiety disorder documented in this encounter Care Teams Lens Grinder Relationship Specialty Start Date End Date Gadiel Majano MD [address] [place] [address] PCP - General 07/06/16 documented as of this encounter
--- OUTSIDE RECORDS SUMMARY | 2024-05-11 14:53 | XMS_ITS | Encounter Summary ---
Author Organization [facility] Address [address] [place] [address] Care Team Providers Care Solicitor Patent Name Role Phone Gadiel Majano MD Primary Care Provider + Reason for Referral * Diagnostic Lab (Routine) - Closed Specialty Diagnoses / Procedures Referred By Josie fitch Referred To Contact Lab Diagnoses Routine gynecological examination Procedures ThinPrep(R) Imaging Pap and HPV mRNA E6/E7 Reflex HPV 16,18/[place] [address] [place] [address] Phone: tel: fax: Referral ID Status Reason Start Date Expiration Date Visits Re quested Visits Authorized [id number] Closed 09/22/2021 10/22/2022 1 1 Reason for Visit * Reason Comments Annual Exam Encounter Details Date Type Department Care Team (Latest Contact Info) Description 09/22/2021 11:45 AM CDT Office Visit [facility] [address] [place] [address] [place] [address] [place] [address] Routine gynecological examination (Primary Dx) Social History Tobacco Use Types Packs/Day Years Used Date Smoking Tobacco: Every Day Cigarettes Smokeless Tobacco: Never Alcohol Use Standard Drinks/Week Comments No 0 (1 standard drink = 0.6 oz pur e alcohol) Comments No Sex and Gender Information Value Date Recorded Sex Assigned at Not on file 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 year old female who presents for a well woman exam. Mirena IUD 08/2018. No menstrual since IUD placement. Infrequent spotting occasional. Denies any breast tenderness, pelvic pain or vaginal discharge. Couple considering next year. Menstrual History: No LMP recorded (lmp unknown). (Menstrual status: IUD). Sexual History: OB History 0 Para 0 Term 0 [...] and negative in HPI. PHYSICAL EXAM: BP 112/58 Ht 167.6 cm (5' 6 ) Wt 176 lb 3.2 oz (79.9 kg) LMP (LMP Unknown) BMI 28.44 kg/m?? General: Well appearing, No pain or distress, well nourished Neck: Supple Breast: No dominant masses, no skin changes. B/l nipples normal Respiratory: Respirations unlabored Gastrointestinal: soft, non-tender abdomen, no masses palpable EGBUS: Normal, no lesions Cervix:No polyps or lesion. Normal discharge. IUD string not visible Uterus: Normal, no masses Adnexa: b/l normal size, no tenderness Extremities: no cyanosis or clubbing or edema Musculoskeletal: no obvious joint deformities Skin: no obvious rash or bruising Psychiatric: normal affect Neurologic: awake/alert, no focal deficits Assessment and Plan: Trinh Corral is a 31 y.o. female who presents for a well woman exam. -Pap done, pH 4.0 -Contraception: Mirena IUD 08/2018. Pt is considering removal next year RTO 1 yr/prn Niki Jones DO documented in this encounter Plan of Treatment Not on file documented as of this encounter Procedures Procedure Name Priority Date/Time Associated Diagnosis Comments THINPREP IMAGING PAP AND HPV MRNA E6/E7 REFLEX HPV 16,18/45 Routine 09/22/2021 12:10 PM CDT Routine gynecological examination documented in this encounter Results * ThinPrep(R) Imaging Pap and HPV mRNA E6/E7 Reflex HPV 16,18/45 (09/22/2021 12:10 PM CDT) CLINICAL INFORMATION: [facility] Comment:Information not prov ided LMP [facility] Comment:NONE GIVEN Previous Pap [facility] Comment:NONE GIVEN Prev. Bx [facility] Comment:NONE GIVEN SOURCE: [facility] Comment:None given Pap, specimen adequacy [facility] Comment: Satisfactory for evaluation. Endocervical/transformation zone component present. Age and/or menstrual status not provided HPV interp [facility] Comment:Negative for intraep ithelial lesion or malignancy. COMMENTS [facility] Comment: This Pap test has been evaluated with computer assisted technology. Ethanol Operator [facility] Comment: ABC, CT(ASCP) CT screening location: [place] [address] [place] [address] Comment [facility] Comment: EXPLANATORY NOTE: The Pap is a [...] High Risk E6/E7 Not Detected Not Detected [facility] Comment: Methodology: Electric Hoist Operator-Mediated Amplification This assay detects E6/E7 viral messenger RNA (mRNA) from 14 high-risk HPV types (16,18,31,33,35,39,45,51,52,56,58,59,66,68). The analytical performance characteristics of this assay have been determined by [facility]. The modifications have not been cleared or approved by the FDA. This assay has been validated pursuant to the CLIA regulations and is used for clinical purposes. For additional information, please refer to http://education.[employer]/faq/JUK673t5 (This link if provided for information/ educational purposes only.) Swab 09/22/2021 12:1 0 PM CDT 09/23/2021 12:22 AM CDT Niki Jones DO LAB CYTOLOGY ORDERABLES Final Result [facility] [address] [place] [address] [facility] [address] [place] [address] documented in this encounter Visit Diagnoses Diagnosis Routine gynecological examination- Primary documented in this encounter Discontinued Medications Medication Sig Discontinue Reason Start Date End Da te phentermine (ADIPEX-P) 37.5 mg tablet TAKE 1/2 TABLET BY MOUTH TWICE DAILY TAKE 2ND DOSE BEFORE 2PM Therapy completed 07/20/2018 09/22/2021 documented as of this encounter Care Teams Solicitor Patent Relationship Specialty Start Date End Date Gadiel Majano MD [address] [facility] [place] [address] PCP - General 07/06/16 documented as of this encounter
--- OUTSIDE RECORDS SUMMARY | 2024-05-11 14:53 | XMS_ITS | Encounter Summary ---
Author Organization [facility] Address [address] [facility] [address] [place] [address] Care Team Providers Care Armature Coil Winder Name Role Phone Gadiel Majano MD Primary Care Provider + Reason for Visit * Reason Comments UTI The patient is havin g burning during uniation and frequency, it has been going on since yesterday Encounter Details Date Type Department Care Team (Late Contact Info) Description 01/02/2019 4:00 PM CDT Office Visit [facility] [address] [place] [address] Sveta Menendez, MACARIO [address] [facility] [place] [address] Urinary tract infection without hematuria, site unspecified (Primary Dx) Social History Tobacco Use Types Packs/Day Years Used Date Smoking Tobacco: Every Day Cigarettes Smokeless Tobacco: Never Alcohol Use Standard Drinks/Week Comments No 0 (1 standard drink = 0.6 oz pur e alcohol) Comments No Sex and Gender Information Value Date Recorded Sex Assigned at Not on file 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 Gender Identity Not on file Sexual Orientation Not on file documented as of this encounter Last Filed Vital Signs Vital Sign Reading Time Taken Comments Blood Pressure 116/78 01/02/2019 4:09 PM CDT Pulse 92 01/02/2019 4:09 PM CDT Temperature 36.8 ??C (98.2 ??F) 01/02/2019 4:09 PM CD T Respiratory Rate 18 01/02/2019 4:09 PM CDT Oxygen Saturation 95% 01/02/2019 4:09 PM CDT Inhaled Oxygen Concentration - - Weight 77.1 kg (170 lb) 01/02/2019 4:09 PM CDT Height 167.6 cm (5' 6 ) 01/02/2019 4:09 PM CDT Body Mass Index 27.44 01/02/2019 4:09 PM CDT documented in this encounter Patient Instructions * Patient Instructions* Sveta Gutierrez NP - 01/02/2019 4:00 PM CDT Complete antibiotic as prescribed Do [...] Refills Last Filled Start Date End Date nitrofurantoin monohydrate (MACROBID) 100 mg capsuleIndications :Urinary tract infection without hematuria, site unspecified Take 1 capsule (100 mg total) by mouth 2 (two) times a day for 5 days 10 capsule 01/02/2019 9 documented in this encounter Progress Notes * Sveta Gutierrez NP - 01/02/2019 4:00 PM CDT Images from the original note were not included. Subjective/Objective Patient ID: Trinh Corral is a 28 y.o. female. Chief Complaint UTI (The patient is having burning during uniation and frequency, it has been going on since yesterday) Presents to clinic for urinary urgency, frequency, burning x1 day. She is drinking more water &she took azo. She recently had her IUD replace late July. UTI This is a new problem. The current episode started yesterday. The problem occurs every urination. The quality of the pain is described as burning. The patient is experiencing no pain. There has been no fever. She is sexually active. Associated symptoms include frequency and urgency. Pertinent negatives include no flank pain, nausea or vomiting. Review of Systems Constitutional: Negative. HENT: Negative. Respiratory: Negative. Cardiovascular: Negative. Gastrointestinal: Negative for nausea and vomiting. Genitourinary: Positive for dysuria, frequency and urgency. [...] is normal and behavior is normal. Vitals: 01/02/19 1609 BP: 116/78 BP Location: Right arm Patient Position: Sitting Pulse: 92 Resp: 18 Temp: 36.8 ??C (98.2 ??F) TempSrc: Oral SpO2: 95% Weight: 77.1 kg (170 lb) Height: 167.6 cm (5' 6 ) [...] and all orders for this visit: Urinary tract infection without hematuria, site unspecified (Primary) - POCT urinalysis dipstick - Urine culture Urine, clean voided; Future - nitrofurantoin monohydrate (MACROBID) 100 mg capsule; Take 1 capsule (100 mg total) by mouth 2 (two) times [...] Associated Diagnosis Comments POCT URINALYSIS DIPSTICK Routine 01/02/2019 4:16 PM CDT Urinary tract infection without hematuria, site unspecified documented in this encounter Results * (ABNORMAL) POCT urinalysis dipstick (01/02/2019 4:16 PM CDT) Color, Urine, POC [place] Clarity, ur, POC Cloudy(A) Clear Glucose, ur, POC 100.(A) Negative mg/dL Bilirubin, ur, POC 1+(A) Negative, Small, Moderate, Large Ketones, ur, POC Small(A) Negative Specific [place], POC 1.020 1.005 - 1.030 Blood, ur, POC Negative Negative pH, ur, POC 7.0 5.0 - 8.0 Protein, ur, POC 2+(A) Negative Urobilinogen, urine, POC 2.0(A) 0.2 - 1.0 mg/dL Nitrite, ur, POC Positive(A) Negative Leukocytes, ur, POC Negative Negative Lot Number [id number] Urine 01/02/2019 4:1 6 PM CDT Sveta Menendez NP POINT OF CARE TEST OR DERABLES Final Result * Urine culture Urine, clean voided (01/02/2019 4:15 PM CDT) Report Final Report: Less than 100,000 colonies/mL (clinically insignificant growth based on current clinical standards) ANNABELLE STUART Comment:Testing performed by : [facility], [address] [place]., [address] Organism (CLINICALLY INSIGNIFICANT GROWTH ANNABELLE STUART Urine, clean voided 01/02/2019 4:15 PM CDT 01/03/2019 12:30 AM CDT Narrative ANNABELLE STUART - 01/04/2019 8:02 AM CDT Testing performed by [facility] Microbiology Laboratory ([phone]) Sveta Menendez CREDIT ASSOCIATE LAB MICROBIOLOGY - [place] ORDERABLES Final Result ANNABELLE STUART [address] Department [place] [address] documented in this encounter Visit Diagnoses Diagnosis Urinary tract infection without hematuria, site unspecified- Primary Urinary tract infection without hematuria, site unspecified documented in this encounter Care Teams Armature Coil Winder Relationship Specialty Start Date End Date Gadiel Majano MD [address] [place] [phone] PCP - General 07/06/16 documented as of this encounter
--- OUTSIDE RECORDS SUMMARY | 2024-05-11 14:53 | XMS_ITS | Encounter Summary ---
Author Organization [facility] Address [address] [address] Care Team Providers Care Ip Litigation Paralegal Name Role Phone Gadiel Majano MD Primary Care Provider + Encounter Details Date Type Department Care Team (Latest Contact Info) Description 11/30/2016 10:21 AM CDT - 11/30/2016 11:59 PM CDT Hospital Encounter [facility] Orthopedics and Sports Medicine [address] [place] [phone] Discharge Disposition: Discharge to home or self care Social History Tobacco Use Types Packs/Day Years Used Date Smoking Tobacco: Every Day Alcohol Use Standard Drinks/Week Comments No 0 (1 standard drink = 0.6 oz pur e alcohol) Comments Unknown Sex and Gender Information Value Date Recorded Sex Assigned at Not on file 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
--- OUTSIDE RECORDS SUMMARY | 2024-05-11 14:53 | XMS_ITS | Encounter Summary ---
Author Organization [facility] Healthcare Address [address] [place] [address] Care Team Providers Care Asphalt Smoother Name Role Phone Gadiel Majano MD Primary Care Provider + Encounter Details Date Type Department Care Team (Late st Contact Info) Description 09/11/2018 4:25 PM CDT Lab [address] [id number] Acute cystitis with hematuria Social History Tobacco Use Types Packs/Day Years Used Date Smoking Tobacco: Every Day Alcohol Use Standard Drinks/Week Comments No 0 (1 standard drink = 0.6 oz pur e alcohol) Comments Unknown Sex and Gender Information Value Date Recorded Sex Assigned at Not on file 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 (.) ANNABELLE Comment:Testing performed by : [facility], [address] [place]., [address] Organism (CLINICALLY INSIGNIFICANT GROWTH [facility] Organism STREPTOCOCCUS AGALACTIAE (GROUP B STREPTOCOCCI) ANNABELLE Urine, clean voided 09/11/2018 8:31 AM CDT 09/11/2018 6:56 PM CDT Narrative [facility] - 09/14/2018 9:35 AM CDT Testing performed by [facility] Microbiology Laboratory ([phone]) Sveta Menendez CERTIFIED ADAPTED PHYSICAL EDUCATOR LAB MICROBIOLOGY - [facility] ORDERABLES Final Result [facility] [address] Department [place] [address] documented in this encounter Visit Diagnoses Diagnosis Acute cystitis with hematuria documented in this encounter Care Teams Asphalt Smoother Relationship Specialty Start Date End Date Gadiel Majano MD [address] [place] [phone] PCP - General 07/06/16 documented as of this encounter
--- OUTSIDE RECORDS SUMMARY | 2024-05-11 14:53 | XMS_ITS | Encounter Summary ---
Author Organization [facility] Healthcare Address [address] [place] [address] Care Team Providers Care Air Conditioning Mechanic Industrial Name Role Phone Gadiel Majano MD Primary Care Provider + Encounter Details Date Type Department Care Team (Late st Contact Info) Description 02/10/2016 7:27 AM CDT - 02/10/2016 12:35 PM CDT Hospital Encounter [facility] Arreguin, Fatuma Marcelino MD [address] [facility] [place] [address] Urinary tract infection Social History Tobacco Use Types Packs/Day Years Used Date Smoking Tobacco: Every Day Alcohol Use Standard Drinks/Week Comments No 0 (1 standard drink = 0.6 oz pur e alcohol) Comments Unknown Sex and Gender Information Value Date Recorded Sex Assigned at Not on file 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 Gender Identity Not on file Sexual Orientation Not on file documented as of this encounter Plan of Treatment Not on file documented as of this encounter Procedures Procedure Name Priority Date/Time Associated Diagnosis Comments URINE (AEROBIC) CULTURE, CDR Routine 02/10/2016 10:40 AM CDT URINE MICROSCOPY Routine 02/10/2016 10:3 8 AM CDT URINE CHORIONIC GONADOTROPIN (HCG) Routine 02/10/2016 10:38 AM CDT URINALYSIS Routine 02/10/2016 10:38 AM CDT BLOOD CELL MORPHOLOGIC EXAM, MANUAL Routine 02/10/2016 8:22 AM CDT SERUM LIPASE Routine 02/10/2016 8:22 AM CDT SERUM ESTIMATED GLOMERULAR FILTRATION RATE Routine 02/10/2016 8:22 AM CDT SERUM AMYLASE Routine 02/10/2016 8:22 AM CDT PLASMA COMPREHENSIVE METABOLIC PANEL Routine 02/10/2016 8:22 AM CDT BLOOD CELL COUNT (CBC) Routine 6 8:22 AM CDT BLOOD CELL MORPHOLOGIC EXAM Routine 02/10/2016 8:22 AM CDT DISCHARGE LABORATORY CUMULATIVE REPORT 02/10/2016 documented in this encounter Results * Urine (aerobic) culture (02/10/2016 10:40 AM CDT) Urine (Unknown) 02/10/2016 1 0:40 AM CDT 02/10/2016 10:56 AM CDT Historical Provider LAB MICROBIOLOGY - GENERA L ORDERABLES Final Result Performing Organization Address [facility] Co de Phone Number CDR HISTORICAL RESULTS * Urine chorionic gonadotropin (HCG) (02/10/2016 10:38 AM CDT) HCG, ur Negative Negative CDR HISTOR ICAL RESULTS Urine 02/10/2016 10:3 8 AM CDT Historical Provider LAB BLOOD ORDERABLES Enma l Result Performing Organization Address City/[facility]/ZIP Co de Phone Number CDR HISTORICAL RESULTS * (ABNORMAL) Urinalysis (02/10/2016 10:38 AM CDT) Color, ur [place](A) Yellow CDR HISTORICAL RESULTS Clarity, ur Clear Clear CDR HISTORICAL RESULTS Specific gravity, ur 1.024 1.003 - 1.030 CDR HISTORICAL RESULTS Comment:Normal Ranges: 1.003 -1.030 pH, ur 7.0 4.5 - 8.0 CDR HISTORICAL RESULTS Comment:Normal ranges: 4.5-8 .0 Protein, ur, quant Negative Negative mg/dl CDR HISTORICAL RESULTS Glucose, ur, quant Negative Negative mg/dl CDR HISTORICAL RESULTS Ketones, ur Negative Negative CDR HISTORICAL RESULTS Bilirubin, ur Negative Negative CDR HISTORICAL RESULTS U Blood Negative Negative CDR HISTORICAL RESULTS Urobilinogen, quant, ur 0.2 0.2 - 1.0 [place] Units/dl CDR HISTORICAL RESULTS Comment:Normal Ranges: 0.2-1 .0 EU/dL Nitrites, ur Positive(A) Negative CDR HISTORICAL RESULTS Leukocyte esterase, ur Negative Negative CDR HISTORICAL RESULTS Urine 02/10/2016 10:[address] [facility] Provider LAB BLOOD ORDERABLES Enma chery Result Performing Organization Address [facility] Co de Phone Number CDR HISTORICAL RESULTS * (ABNORMAL) Urine microscopy (02/10/2016 10:38 AM CDT) RBC, ur 2 - 5(A) 0 - 2 /hpf CDR HISTO RICAL RESULTS WBC, ur 0 - 2 0 - 2 /hpf CDR HISTO RICAL RESULTS Bacteria, ur Negative Negative CDR HIS TORICAL RESULTS Hyaline casts 0 - 2 0 - 2 /lpf CDR H ISTORICAL RESULTS Epithelial cells, ur 0 - 2 0 - 2 /hpf CDR HISTORICAL RESULTS Urine 02/10/2016 10:3 8 AM CDT Historical Provider LAB BLOOD ORDERABLES Enma chery Result Performing Organization Address [facility] de Phone Number CDR HISTORICAL RESULTS * (ABNORMAL) Plasma comprehensive metabolic panel (02/10/2016 8:22 AM CDT) Sodium 140 135 - 145 mmol/L CDR HISTORICAL RESULTS K, pl 4.4 3.5 - 5.1 mmol/L CDR HISTORICAL RESULTS Chloride 102 97 - 110 mmol/L CDR HISTORICAL RESULTS CO2 24 22 - 32 mmol/L CDR HISTORICAL RESULTS A. gap 18(H) 8 - 16 mmol/L CDR HISTORICAL RESULTS Glucose 137 70 - 199 mg/dl CDR HISTORICAL RESULTS Comment: Interpretive Data Note:The glucose is assumed non fasting Fastin-99 mg/dL Random: ??70-199 mg/dL Either a fasting glucose > 126 mg/dL or a random glucose > 200 mg/dL plus symptoms is diagnostic of diabetes when confirmed on another day. Fasting values > 100 mg/dL but < 125 mg/dL are diagnostic of impaired fasting glucose. Current interpretive data was last revised on 2014. BUN 12.3 8.0 - 25.0 mg/dl CDR HISTORICAL RESULTS Creatinine 0.65 0.60 - 1.10 mg/dl CDR HISTORICAL RESULTS BUN/creat ratio 19 10 - 20 CDR HISTORICAL RESULTS Calcium 9.8 8.6 - 10.2 mg/dl CDR HISTORICAL RESULTS Protein, sr 7.7 6.0 - 8.4 g/dl CDR HISTORICAL RESULTS Alb 4.6 3.6 - 5.0 g/dl CDR HISTORICAL RESULTS Alk phos 84 40 - 130 Units/L CDR HISTORICAL RESULTS ALT 16 5 - 45 Units/L CDR HISTORICAL RESULTS AST 21 10 - 40 Units/L CDR HISTORICAL RESULTS Bilirubin 0.5 <=1.2 mg/dl CDR HISTORICAL RESULTS Plasma 02/10/2016 8:22 AM CDT Result [facility] Historical Provider LAB BLOOD ORDERABLES Enma l Result Performing Organization Address [facility] Co de Phone Number CDR HISTORICAL RESULTS * Blood cell morphologic exam, manual (02/10/2016 8:22 AM CDT) Platelet estimate Adequate CDR HISTORICAL RESULTS RBC morphology Normal CDR H ISTORICAL RESULTS Blood specimen (specimen) 02/10/2016 8:22 AM CDT Historical Provider LAB BLOOD ORDERABLES Enma l Result Performing Organization Address City/[facility]/ZIP Co de Phone Number CDR HISTORICAL RESULTS * Serum lipase (02/10/2016 8:22 AM CDT) Lip 60 10 - 70 Units/L CDR HISTORICAL RESULTS Serum 02/10/2016 8:22 AM CDT Historical Provider LAB BLOOD ORDERABLES Enma l Result CDR HISTORICAL RESULTS * (ABNORMAL) Blood cell count (CBC) (02/10/2016 8:22 AM CDT) WBC 15.3(H) 3.8 - 9.8 K/cumm CDR HISTORICAL RESULTS RBC 4.93 3.90 - 5.00 M/cumm CDR HISTORICAL RESULTS Hgb 15.4(H) 12.1 - 15.1 g/dl CDR HISTORICAL RESULTS Hct 47.0(H) 36.1 - 44.3 % CDR HISTORICAL RESULTS MCV 95.3 80.0 - 100.0 fl CDR HISTORICAL RESULTS MCH 31.2 26.7 - 33.7 pg CDR HISTORICAL RESULTS MCHC 32.8 32.7 - 36.0 g/dl CDR HISTORICAL RESULTS Rdw 12.8 11.5 - 14.6 % CDR HISTORICAL RESULTS Platelets 207 140 - 440 K/cumm CDR HISTORICAL RESULTS MPV 10.7 8.0 - 12.0 fl CDR HISTORICAL RESULTS NRBC 0.0 0.0 - 0.0 % CDR HIST ORICAL RESULTS NRBC, abs 0.00 0.00 - 0.00 K/cumm CDR HISTORICAL RESULTS Blood specimen (specimen) 02/10/2016 8:22 AM CDT Historical Provider LAB BLOOD ORDERABLES Enma chery Result Performing Organization Address [facility]/ZIP Co de Phone Number CDR HISTORICAL RESULTS * Serum amylase (02/10/2016 8:22 AM CDT) Aminata, pl 82 30 - 100 Units/L CDR HISTORICAL RESULTS Serum 02/10/2016 8:22 AM CDT Historical Provider LAB BLOOD ORDERABLES Enma l Result CDR HISTORICAL RESULTS * (ABNORMAL) Blood cell morphologic exam (02/10/2016 8:22 AM CDT) Neutrophils 89.4(H) 44.0 - 80.0 % CDR HISTORICAL RESULTS Immature granulocytes 0.3 0.0 - 1.0 % CDR HISTORICAL RESULTS Lymphocytes 2.7(L) 13.0 - 44.0 % CDR HISTORICAL RESULTS Monos 6.7 2.0 - 11.0 % CDR HISTORICAL RESULTS Eosinophils 0.6 0.0 - 6.0 % CDR HISTORICAL RESULTS Basophils 0.3 0.0 - 3.0 % CDR HISTORICAL RESULTS Neutrophils, abs 13.7(H) 1.6 - 7.0 K/cumm CDR HISTORICAL RESULTS Immature granulocyte, abs 0.0 0.0 - 0.2 K/cumm CDR HISTORICAL RESULTS Lymphocytes, abs 0.4(L) 0.5 - 4.3 K/cumm CDR HISTORICAL RESULTS Monocytes, absolute 1.0(H) 0.1 - 1.0 K/cumm CDR HISTORICAL RESULTS Eosinophils, abs 0.1 0.0 - 0.6 K/cumm CDR HISTORICAL RESULTS Basophils, abs 0.0 0.0 - 0.3 K/cumm CDR HISTORICAL RESULTS Blood specimen (specimen) 02/10/2016 8:22 AM CDT Historical Provider LAB BLOOD ORDERABLES Enma chery Result CDR HISTORICAL RESULTS * Serum estimated glomerular filtration rate (02/10/2016 8:22 AM CDT) eGFR >60 ml/min/1.7 3 m2 CDR HISTORICAL RESULTS Comment: Interpretation of Estimated GFR (eGFR): Normal ?>/= 60 mL/min/1.73m2 Possible Chronic Kidney Disease ??15 - 59 mL/min/1.73m2 Possible Kidney Failure ?< 15 ??mL/min/1.73m2 If -[place] Islander multiply value by 1.16. ??Estimated glomerular filtration rate is determined by the CKD-EPI equation recommended by the National Kidney Foundation (KDIGO 2012 Clinical Practice Guideline for the Evaluation and Management of Chronic Kidney Disease. ??Kidney Intnl Suppl May 2012;3:1). ??The CKD-EPI equation should not be used in acute renal failure or acute kidney injury and is not valid in children. Serum 02/10/2016 8:22 AM CDT us Historical Provider LAB BLOOD ORDERABLES Enma l Result CDR HISTORICAL RESULTS * DISCHARGE LABORATORY CUMULATIVE REPORT (02/10/2016) Narrative 02/10/2016 Ordered by an unspecified provider. us Historical Provider LAB BLOOD ORDERABLES Enma l Result documented in this encounter Visit Diagnoses Diagnosis Urinary tract infection Urinary tract infection, site not specified documented in this encounter Care Teams Air Conditioning Mechanic Industrial Relationship Specialty Start Date End Date Gadiel Majano MD [address] [place] [phone] PCP - General 02/23/11 07/05/16 documented as of this encounter
--- OUTSIDE RECORDS SUMMARY | 2024-05-11 14:53 | XMS_ITS | Encounter Summary ---
Author Organization [facility] Address [address] [facility] [address] [place] [address] Care Team Providers Care Client Technologies Specialist Name Role Phone Gadiel Majano MD Primary Care Provider + Encounter Details Date Type Department Care Team (Late st Contact Info) Description 09/19/2018 Orders Only [facility] Care [address] [place] [address] Sveta Menendez, MACARIO [address] [facility] [place] [address] Group B streptococcal bacteriuria (Primary Dx) Social History Tobacco Use Types Packs/Day Years Used Date Smoking Tobacco: Every Day Alcohol Use Standard Drinks/Week Comments No 0 (1 standard drink = 0.6 oz pur e alcohol) Comments Unknown Sex and Gender Information Value Date Recorded Sex Assigned at Not on file 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 Gender Identity Not on file Sexual Orientation Not on file documented as of this encounter Ordered Prescriptions Prescription Sig Dispense Quantity Refills Last Filled Start Date End Date cephalexin (KEFLEX) 500 mg capsuleIndications: Group B streptococcal bacteriuria Take 1 capsule (500 mg total) by mouth 2 (two) times a day for 7 days 14 capsule 09/19/2018 9 documented in this encounter Progress Notes * Sveta Gutierrez NP - 09/19/2018 2:53 PM CDT Positive Group B strep in urine- Pt still symptomatic even after Bactrim- ordered Cephalexin documented in this encounter Plan of Treatment Not on file documented as of this encounter Visit Diagnoses Diagnosis Group B streptococcal bacteriuria- Primary documented in this encounter Care Teams Client Technologies Specialist Relationship Specialty Start Date End Date Gadiel Majano MD [address] [place] [phone] PCP - General 07/06/16 documented as of this encounter
--- OUTSIDE RECORDS SUMMARY | 2024-05-11 14:54 | XMS_ITS | Encounter Summary ---
Author Organization [facility] Healthcare Address [address] [place] [address] Care Team Providers Care Furnace Installer Helper Name Role Phone Gadiel Majano MD Primary Care Provider + Encounter Details Date Type Department Care Team (Late st Contact Info) Description 02/27/2011 8:44 AM CDT - 02/27/2011 11:59 PM CDT Hospital Encounter [facility] Yady Yates, HOIST CYLINDER LOADER [address] [facility] [address] [address] Symptom associated with female genital organs Social History Tobacco Use Types Packs/Day Years Used Date Smoking Tobacco: Every Day Alcohol Use Standard Drinks/Week Comments No 0 (1 standard drink = 0.6 oz pur e alcohol) Comments Unknown Sex and Gender Information Value Date Recorded Sex Assigned at Not on file 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
--- OUTSIDE RECORDS SUMMARY | 2024-05-11 14:54 | XMS_ITS | Encounter Summary ---
Author Organization [facility] Healthcare Address [address] [place] [address] Care Team Providers Care Ems Director Name Role Phone Unavailable Primary Care Provider Unavailabl e Encounter Details Date Type Department Care Team (Late st Contact Info) Description 11/22/2007 12:01 AM CDT - 12/09/2007 9:52 AM CDT Hospital Encounter [facility] Benson Clark MD [address] [facility] [address] [place] [phone] Social History Tobacco Use Types Packs/Day Years Used Date Smoking Tobacco: Never Assessed Comments Unknown Sex and Gender Information Value Date Recorded Sex Assigned at Not on file 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
--- OUTSIDE RECORDS SUMMARY | 2024-05-11 14:54 | XMS_ITS | Encounter Summary ---
Author Organization [facility] Healthcare Address [address] [place] [address] Care Team Providers Care Mapping Editor Name Role Phone Unavailable Primary Care Provider Unavailabl e Encounter Details Date Type Department Care Team (Late st Contact Info) Description 01/15/2011 10:44 AM CDT - 01/15/2011 11:59 PM CDT Hospital Encounter [facility] CLINCONV examination or test, unconfirmed Social History Tobacco Use Types Packs/Day Years Used Date Smoking Tobacco: Never Assessed Comments Unknown Sex and Gender Information Value Date Recorded Sex Assigned at Not on file Legal Sex 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 RN ORTHOPEDIC Gender Identity Not on file Sexual Orientation Not on file documented as of this encounter Plan of Treatment Not on file documented as of this encounter Visit Diagnoses Diagnosis examination or test, unconfirmed documented in this encounter
--- OUTSIDE RECORDS SUMMARY | 2024-05-11 14:54 | XMS_ITS | Encounter Summary ---
Author Organization [facility] Healthcare Address [address] [place] [address] Care Team Providers Care Sugar Mill Worker Name Role Phone Unavailable Primary Care Provider Unavailabl e Encounter Details Date Type Department Care Team (Late st Contact Info) Description 05/24/2006 9:13 PM ACTIVITY DIRECTOR - 05/24/2006 11:44 PM ACTIVITY DIRECTOR Hospital Encounter [facility] Social History Tobacco Use Types Packs/Day Years Used Date Smoking Tobacco: Never Assessed Comments Unknown Sex and Gender Information Value Date Recorded Sex Assigned at Not on file Legal Sex 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 ACTIVITY DIRECTOR Gender Identity Not on file Sexual Orientation Not on file documented as of this encounter Plan of Treatment Not on file documented as of this encounter Visit Diagnoses Not on filedocumented in this encounter
--- OUTSIDE RECORDS SUMMARY | 2024-05-11 14:54 | XMS_ITS | Encounter Summary ---
Author Organization [facility] Healthcare Address [address] [place] [address] Care Team Providers Care Dental Technician Apprentice Name Role Phone Unavailable Primary Care Provider Unavailabl e Encounter Details Date Type Department Care Team (Late st Contact Info) Description 11/09/2007 12:01 AM CDT - 11/21/2007 11:59 PM CDT Hospital Encounter [facility] Benson Clark MD [address] [facility] [address] [place] [phone] Social History Tobacco Use Types Packs/Day Years Used Date Smoking Tobacco: Never Assessed Comments Unknown Sex and Gender Information Value Date Recorded Sex Assigned at Not on file Legal Sex 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 HEAD GROWER Gender Identity Not on file Sexual Orientation Not on file documented as of this encounter Plan of Treatment Not on file documented as of this encounter Visit Diagnoses Not on filedocumented in this encounter
--- OUTSIDE RECORDS SUMMARY | 2024-05-11 14:54 | XMS_ITS | Encounter Summary ---
Author Organization [facility] Facility Care Team Providers Care Encoding Machine Operator Name Role Phone Gadiel Majano MD Primary Care Provider + Encounter Details Date Type Department Care Team (Late st Contact Info) Description 08/10/2011 10:42 AM CDT - 08/22/2011 11:59 PM CDT Hospital Encounter [facility]INCON[facility] Sudhir Wilkes MD [address] [facility] [address] [place] [address] Social History Tobacco Use Types Packs/Day Years Used Date Smoking Tobacco: Every Day Alcohol Use Standard Drinks/Week Comments No 0 (1 standard drink = 0.6 oz pur e alcohol) Comments Unknown Sex and Gender Information Value Date Recorded Sex Assigned at Not on file 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
--- OUTSIDE RECORDS SUMMARY | 2024-05-11 14:54 | XMS_ITS | Encounter Summary ---
Author Organization [facility] Healthcare Address [address] [place] [address] Care Team Providers Care Manager Privacy Name Role Phone Unavailable Primary Care Provider Unavailabl e Encounter Details Date Type Department Care Team (Late st Contact Info) Description 09/24/2006 11:41 AM CDT - 09/24/2006 11:59 PM CDT Hospital Encounter [facility] Pooja Nichols MD [address] [place] [address] [address] Social History Tobacco Use Types Packs/Day Years Used Date Smoking Tobacco: Never Assessed Comments Unknown Sex and Gender Information Value Date Recorded Sex Assigned at Not on file Legal Sex 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 CAMPUS ADMINISTRATOR Gender Identity Not on file Sexual Orientation Not on file documented as of this encounter Plan of Treatment Not on file documented as of this encounter Visit Diagnoses Not on filedocumented in this encounter
--- OUTSIDE RECORDS SUMMARY | 2024-05-11 14:54 | XMS_ITS | Encounter Summary ---
Author Organization [facility] Facility Care Team Providers Care Tree Worker Name Role Phone Unavailable Primary Care Provider Unavailabl e Encounter Details Date Type Department Care Team (Late st Contact Info) Description 04/25/2007 - 04/25/2007 11:59 PM STAFF PHARMACIST Hospital Encounter [facility] Zeus Stephenson MD [address] [place] [address] Social History Tobacco Use Types Packs/Day Years Used Date Smoking Tobacco: Never Assessed Comments Unknown Sex and Gender Information Value Date Recorded Sex Assigned at Not on file Legal Sex 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 STAFF PHARMACIST Gender Identity Not on file Sexual Orientation Not on file documented as of this encounter Plan of Treatment Not on file documented as of this encounter Visit Diagnoses Not on filedocumented in this encounter
--- OUTSIDE RECORDS SUMMARY | 2024-05-11 14:54 | XMS_ITS | Encounter Summary ---
Author Organization [facility] Healthcare Address [address] [place] [address] Care Team Providers Care Microfilming Document Preparer Name Role Phone Unavailable Primary Care Provider Unavailabl e Encounter Details Date Type Department Care Team (Late st Contact Info) Description 02/22/2009 10:14 AM CDT - 02/22/2009 11:59 PM CDT Hospital Encounter [facility] CLINCONGadiel Maria MD [address] [place] [phone] Pain in joint, pelvic region and thigh Social History Tobacco Use Types Packs/Day Years Used Date Smoking Tobacco: Never Assessed Comments Unknown Sex and Gender Information Value Date Recorded Sex Assigned at Not on file Legal Sex 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 COOK MORNING Gender Identity Not on file Sexual Orientation Not on file documented as of this encounter Plan of Treatment Not on file documented as of this encounter Visit Diagnoses Diagnosis Pain in joint, pelvic region and thigh documented in this encounter
--- OUTSIDE RECORDS SUMMARY | 2024-05-11 14:54 | XMS_ITS | Encounter Summary ---
Author Organization [facility] Healthcare Address [address] [place] [address] Care Team Providers Care Stock Turner Name Role Phone Unavailable Primary Care Provider Unavailabl e Encounter Details Date Type Department Care Team (Late st Contact Info) Description 07/22/2006 12:01 AM CITRIX ADMINISTRATOR - 08/21/2006 11:59 PM CDT Hospital Encounter [facility] Jacobson, Pooja Whitt MD [address] [place] [address] [address] Social History Tobacco Use Types Packs/Day Years Used Date Smoking Tobacco: Never Assessed Comments Unknown Sex and Gender Information Value Date Recorded Sex Assigned at Not on file Legal Sex 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 CITRIX ADMINISTRATOR Gender Identity Not on file Sexual Orientation Not on file documented as of this encounter Plan of Treatment Not on file documented as of this encounter Visit Diagnoses Not on filedocumented in this encounter
--- OUTSIDE RECORDS SUMMARY | 2024-05-11 14:54 | XMS_ITS | Encounter Summary ---
Author Organization [facility] Healthcare Address [address] [place] [address] Care Team Providers Care Accountancy Professor Name Role Phone Gadiel Majano MD Primary Care Provider + Encounter Details Date Type Department Care Team (Late st Contact Info) Description 05/05/2011 1:35 PM SENIOR ACCOUNTANT - 05/05/2011 11:59 PM SENIOR ACCOUNTANT Hospital Encounter [facility] CLINCON[facility] Meng, [place] [address] [facility] [address] [place] [phone] Urinary tract infection Social History Tobacco Use Types Packs/Day Years Used Date Smoking Tobacco: Every Day Alcohol Use Standard Drinks/Week Comments No 0 (1 standard drink = 0.6 oz pur e alcohol) Comments Unknown Sex and Gender Information Value Date Recorded Sex Assigned at Not on file Legal Sex 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 SENIOR ACCOUNTANT Gender Identity Not on file Sexual Orientation Not on file documented as of this encounter Plan of Treatment Not on file documented as of this encounter Visit Diagnoses Diagnosis Urinary tract infection Urinary tract infection, site not specified documented in this encounter Care Teams Accountancy Professor Relationship Specialty Start Date End Date Gadiel Majano MD [address] [place] [phone] PCP - General 02/23/11 07/05/16 documented as of this encounter
--- OUTSIDE RECORDS SUMMARY | 2024-05-11 14:54 | XMS_ITS | Encounter Summary ---
Author Organization [facility] Healthcare Address [address] [place] [address] Care Team Providers Care Sales Order Clerk Name Role Phone Unavailable Primary Care Provider Unavailabl e Encounter Details Date Type Department Care Team (Late st Contact Info) Description 05/24/2006 8:47 PM TEST CLERK - 05/24/2006 11:59 PM TEST CLERK Hospital Encounter [facility] Social History Tobacco Use Types Packs/Day Years Used Date Smoking Tobacco: Never Assessed Comments Unknown Sex and Gender Information Value Date Recorded Sex Assigned at Not on file Legal Sex 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 TEST CLERK Gender Identity Not on file Sexual Orientation Not on file documented as of this encounter Plan of Treatment Not on file documented as of this encounter Visit Diagnoses Not on filedocumented in this encounter
--- OUTSIDE RECORDS SUMMARY | 2024-05-11 14:54 | XMS_ITS | Encounter Summary ---
Author Organization [facility] Facility Care Team Providers Care Finishing Department Supervisor Name Role Phone Gadiel Majano MD Primary Care Provider + Encounter Details Date Type Department Care Team (Late st Contact Info) Description 09/22/2011 12:01 AM CDT - 10/22/2011 11:59 PM CDT Hospital Encounter [facility] Sudhir Wilkes MD [address] [facility] [address] [place] [address] Social History Tobacco Use Types Packs/Day Years Used Date Smoking Tobacco: Every Day Alcohol Use Standard Drinks/Week Comments No 0 (1 standard drink = 0.6 oz pur e alcohol) Comments Unknown Sex and Gender Information Value Date Recorded Sex Assigned at Not on file Legal Sex 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 FORESTRY TECHNICAL OFFICER Gender Identity Not on file Sexual Orientation Not on file documented as of this encounter Plan of Treatment Not on file documented as of this encounter Visit Diagnoses Not on filedocumented in this encounter Care Teams Finishing Department Supervisor Relationship Specialty Start Date End Date Gadiel Majano MD [address] [place] [phone] PCP - General 02/23/11 07/05/16 documented as of this encounter
--- OUTSIDE RECORDS SUMMARY | 2024-05-11 14:54 | XMS_ITS | Encounter Summary ---
Author Organization [facility] Healthcare Address [address] [place] [address] Care Team Providers Care Electronics Manufacturer Name Role Phone Gadiel Majano MD Primary Care Provider + Encounter Details Date Type Department Care Team (Late st Contact Info) Description 03/02/2011 9:30 AM CDT - 03/02/2011 11:59 PM CDT Hospital Encounter [facility] Yady Yates, ENGINE SPECIALIST [address] [facility] [address] [address] Social History Tobacco Use Types Packs/Day Years Used Date Smoking Tobacco: Every Day Alcohol Use Standard Drinks/Week Comments No 0 (1 standard drink = 0.6 oz pur e alcohol) Comments Unknown Sex and Gender Information Value Date Recorded Sex Assigned at Not on file Legal Sex 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 ALMOND SORTER Gender Identity Not on file Sexual Orientation Not on file documented as of this encounter Plan of Treatment Not on file documented as of this encounter Visit Diagnoses Not on filedocumented in this encounter Care Teams Electronics Manufacturer Relationship Specialty Start Date End Date Gadiel Majano MD [address] [place] [phone] PCP - General 02/23/11 07/05/16 documented as of this encounter
--- OUTSIDE RECORDS SUMMARY | 2024-05-11 14:54 | XMS_ITS | Encounter Summary ---
Author Organization [facility] Healthcare Address [address] [place] [address] Care Team Providers Care Engraver Optical Frames Name Role Phone Gadiel Majano MD Primary Care Provider + Encounter Details Date Type Department Care Team (Late st Contact Info) Description 04/01/2011 8:23 AM MANAGER DRILLING - 04/01/2011 11:59 PM MANAGER DRILLING Hospital Encounter [facility] CLINCON[facility] Meng, [place] [address] [facility] [address] [place] [phone] Urinary tract infection Social History Tobacco Use Types Packs/Day Years Used Date Smoking Tobacco: Every Day Alcohol Use Standard Drinks/Week Comments No 0 (1 standard drink = 0.6 oz pur e alcohol) Comments Unknown Sex and Gender Information Value Date Recorded Sex Assigned at Not on file Legal Sex 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 MANAGER DRILLING Gender Identity Not on file Sexual Orientation Not on file documented as of this encounter Plan of Treatment Not on file documented as of this encounter Visit Diagnoses Diagnosis Urinary tract infection Urinary tract infection, site not specified documented in this encounter Care Teams Engraver Optical Frames Relationship Specialty Start Date End Date Gadiel Majano MD [address] [place] [phone] PCP - General 02/23/11 07/05/16 documented as of this encounter
--- OUTSIDE RECORDS SUMMARY | 2024-05-11 14:54 | XMS_ITS | Encounter Summary ---
Author Organization [facility] Healthcare Address [address] [place] [address] Care Team Providers Care Blueprint Blocker Name Role Phone Unavailable Primary Care Provider Unavailabl e Encounter Details Date Type Department Care Team (Late st Contact Info) Description 08/22/2006 12:01 AM CDT - 09/20/2006 11:59 PM CDT Hospital Encounter [facility] Pooja Nichols MD [address] [place] [address] [address] Social History Tobacco Use Types Packs/Day Years Used Date Smoking Tobacco: Never Assessed Comments Unknown Sex and Gender Information Value Date Recorded Sex Assigned at Not on file Legal Sex 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 SERVICE PROVIDER Gender Identity Not on file Sexual Orientation Not on file documented as of this encounter Plan of Treatment Not on file documented as of this encounter Visit Diagnoses Not on filedocumented in this encounter
--- OUTSIDE RECORDS SUMMARY | 2024-05-11 14:54 | XMS_ITS | Encounter Summary ---
Author Organization [facility] Healthcare Address [address] [place] [address] Care Team Providers Care Automatic Dispenser Mechanic Name Role Phone Unavailable Primary Care Provider Unavailabl e Encounter Details Date Type Department Care Team (Late st Contact Info) Description 07/12/2006 12:01 AM VP SCIENTIFIC - 07/21/2006 11:59 PM VP SCIENTIFIC Hospital Encounter [facility] Pooja Nichols MD [address] [place] [address] [address] Social History Tobacco Use Types Packs/Day Years Used Date Smoking Tobacco: Never Assessed Comments Unknown Sex and Gender Information Value Date Recorded Sex Assigned at Not on file Legal Sex 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 VP SCIENTIFIC Gender Identity Not on file Sexual Orientation Not on file documented as of this encounter Plan of Treatment Not on file documented as of this encounter Visit Diagnoses Not on filedocumented in this encounter
--- OUTSIDE RECORDS SUMMARY | 2024-05-11 14:54 | XMS_ITS | Encounter Summary ---
Author Organization [facility] Facility Care Team Providers Care Programming Engineer Name Role Phone Gadiel Majano MD Primary Care Provider + Encounter Details Date Type Department Care Team (Late st Contact Info) Description 07/08/2011 - 07/08/2011 11:59 PM GRADES 7 AND 8 TEACHER Hospital [facility] CLINK[facility] Corrales, MACARIO [address] [place] [address] Urinary tract infection Social History Tobacco Use Types Packs/Day Years Used Date Smoking Tobacco: Every Day Alcohol Use Standard Drinks/Week Comments No 0 (1 standard drink = 0.6 oz pur e alcohol) Comments Unknown Sex and Gender Information Value Date Recorded Sex Assigned at Not on file Legal Sex 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 GRADES 7 AND 8 TEACHER Gender Identity Not on file Sexual Orientation Not on file documented as of this encounter Plan of Treatment Not on file documented as of this encounter Visit Diagnoses Diagnosis Urinary tract infection Urinary tract infection, site not specified documented in this encounter Care Teams Programming Engineer Relationship Specialty Start Date End Date Gadiel Majano MD [address] [place] [phone] PCP - General 02/23/11 07/05/16 documented as of this encounter
--- OUTSIDE RECORDS SUMMARY | 2024-05-11 14:54 | XMS_ITS | Encounter Summary ---
Author Organization [facility] Healthcare Address [address] [place] [address] Care Team Providers Care Nut Cracker Name Role Phone Unavailable Primary Care Provider Unavailabl e Encounter Details Date Type Department Care Team (Late st Contact Info) Description 06/16/2006 6:23 PM COLLATOR OPERATOR - 06/16/2006 11:59 PM COLLATOR OPERATOR Hospital Encounter [facility] Pooja Nichols MD [address] [place] [address] [address] Social History Tobacco Use Types Packs/Day Years Used Date Smoking Tobacco: Never Assessed Comments Unknown Sex and Gender Information Value Date Recorded Sex Assigned at Not on file Legal Sex 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 COLLATOR OPERATOR Gender Identity Not on file Sexual Orientation Not on file documented as of this encounter Plan of Treatment Not on file documented as of this encounter Visit Diagnoses Not on filedocumented in this encounter
--- OUTSIDE RECORDS SUMMARY | 2024-05-11 14:54 | XMS_ITS | Encounter Summary ---
Author Organization [facility] Facility Care Team Providers Care Firewall Administrator Name Role Phone Gadiel Majano MD Primary Care Provider + Encounter Details Date Type Department Care Team (Late st Contact Info) Description 08/23/2011 12:01 AM CDT - 09/21/2011 11:59 PM CDT Hospital Encounter [facility]IN[facility] Sudhir Wilkes MD [address] [facility] [address] [place] [address] Social History Tobacco Use Types Packs/Day Years Used Date Smoking Tobacco: Every Day Alcohol Use Standard Drinks/Week Comments No 0 (1 standard drink = 0.6 oz pur e alcohol) Comments Unknown Sex and Gender Information Value Date Recorded Sex Assigned at Not on file Legal Sex 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 DARKROOM TECHNICIAN Gender Identity Not on file Sexual Orientation Not on file documented as of this encounter Plan of Treatment Not on file documented as of this encounter Visit Diagnoses Not on filedocumented in this encounter Care Teams Firewall Administrator Relationship Specialty Start Date End Date Gadiel Majano MD [address] [place] [phone] PCP - General 02/23/11 07/05/16 documented as of this encounter
--- OUTSIDE RECORDS SUMMARY | 2024-05-11 14:54 | XMS_ITS | Encounter Summary ---
Author Organization [facility] Healthcare Address [address] [place] [address] Care Team Providers Care Workplace Rehabilitation Officer Name Role Phone Rashaun Reyez MD Primary Care Provider + Encounter Details Date Type Department Care Team (Late st Contact Info) Description 06/03/2013 3:38 PM QUALITY CONTROL ENGINEER - 06/03/2013 7:02 PM QUALITY CONTROL ENGINEER Hospital Encounter [facility] Curtis Corcoran MD [address] [facility] [address] [place] [address] Urinary tract infection; Other specified cardiac dysrhythmias Social History Tobacco Use Types Packs/Day Years Used Date Smoking Tobacco: Every Day Alcohol Use Standard Drinks/Week Comments No 0 (1 standard drink = 0.6 oz pur e alcohol) Comments Unknown Sex and Gender Information Value Date Recorded Sex Assigned at Not on file Legal Sex 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 QUALITY CONTROL ENGINEER Gender Identity Not on file Sexual Orientation Not on file documented as of this encounter Plan of Treatment Not on file documented as of this encounter Procedures Procedure Name Priority Date/Time Associated Diagnosis Comments DISCHARGE CUMULATIVE SUMMARY ADDENDUM Routine 06/08/2013 12:29 AM QUALITY CONTROL ENGINEER SERUM THYROXINE (T4), FREE Routine 06/03 5:15 PM QUALITY CONTROL ENGINEER SERUM THYROID-STIMULATING HORMONE (TSH) Routine 06/03/2013 5:15 PM QUALITY CONTROL ENGINEER SERUM COMPREHENSIVE METABOLIC PANEL Routine 06/03/2013 5:15 PM QUALITY CONTROL ENGINEER BLOOD WBC CELL MORPHOLOGIC EXAM, AUTO Routine 06/03/2013 5:15 PM QUALITY CONTROL ENGINEER BLOOD CELL COUNT (CBC) Routine 4 5:15 PM QUALITY CONTROL ENGINEER XR CHEST PA LATERAL 2 VIEWS Routine 06/03/2013 4:41 PM QUALITY CONTROL ENGINEER URINE MICROSCOPY Routine 06/03/2013 4:10 PM QUALITY CONTROL ENGINEER URINE CHORIONIC GONADOTROPIN (HCG) Routine 06/03/2013 4:10 PM QUALITY CONTROL ENGINEER URINE CHLAMYDIA, GONORRHEA DNA Routine 06/03/2013 4:10 PM QUALITY CONTROL ENGINEER URINALYSIS Routine 06/03/2013 4:10 PM QUALITY CONTROL ENGINEER SERUM THEOPHYLLINE DRUG LEVEL Routine 06/03/2013 11:15 AM QUALITY CONTROL ENGINEER ELECTROCARDIOGRAPHY (ECG) 06/03/2013 DISCHARGE LABORATORY CUMULATIVE REPORT Routine 06/03/2013 12:00 AM QUALITY CONTROL ENGINEER documented in this encounter Results * Discharge Cumulative Summary Addendum (06/08/2013 12:29 AM QUALITY CONTROL ENGINEER) 06/08/2013 12:2 9 AM QUALITY CONTROL ENGINEER Narrative HISTORICAL RESULTS - 06/08/2013 12:29 AM QUALITY CONTROL ENGINEER Patient No: [id number] ? [facility] Patient Name: TRAVON CORRAL ?[facility] Healthcare Age: 22 YRS ?: 1990 ?Sex:F ?[address] )[phone] ?? Adm Dt: 06/03/2013 ?[place] ??[id number] Created: 06/08/2013 ??0029 ?? Pt. Type: E ? Discharge Dt: 06/03/2013 ? Pathologists: Katey Sales MD Admit Attend Dr: CURTIS CORCORAN MD ?MICROBIAL SEROLOGY ?Collection Date: ?06/03/13 ?Collection Time: ?1610 ? Ref Range: ?? Units: ?URINE CHLAM+GC @ ?SEE REPT @ = URINE CHLAM+GC Performed at ??[facility] ?? [facility], [place] ?? END OF CHART ? Page: ?? 1 us Historical Provider MD LAB MICROBIOLOGY - GENERA L ORDERABLES Final Result Performing Organization Address [facility] de Phone Number HISTORICAL RESULTS * Serum thyroid-stimulating hormone (TSH) (06/03/2013 5:15 PM QUALITY CONTROL ENGINEER) Pathologist [facility] TSH 0.63 0.35 - 4.80 mcIUnits/ml HISTORICAL RESULTS Serum 06/03/2013 5:15 PM QUALITY CONTROL ENGINEER Curtis Corcoran MD LAB BLOOD ORDERABLES Final Result Performing Organization Address [facility] de Phone Number HISTORICAL RESULTS * Serum thyroxine (T4), free (06/03/2013 5:15 PM QUALITY CONTROL ENGINEER) Pathologist [facility] Free T4 1.1 0.7 - 1.3 ng/dl HISTORICAL RESULTS Serum 06/03/2013 5:15 PM QUALITY CONTROL ENGINEER Curtis Corcoran MD LAB BLOOD ORDERABLES Final Result Performing Organization Address [facility] de Phone Number HISTORICAL RESULTS * (ABNORMAL) Blood cell count (CBC) (06/03/2013 5:15 PM QUALITY CONTROL ENGINEER) Pathologist [facility] WBC 8.5 4.0 - 10.5 K/cumm HISTORICAL RESULTS RBC 3.85(L) 4.20 - 5.40 M/cumm HISTORICAL RESULTS Hgb 11.9(L) 12.0 - 16.0 g/dl HISTORICAL RESULTS Hct 36.0(L) 37.0 - 47.0 % HISTORICAL RESULTS MCV 93.5 77.0 - 97.0 fl HISTORICAL RESULTS MCH 30.9 23.0 - 34.0 pg HISTORICAL RESULTS MCHC 33.1 32.0 - 36.0 g/dl HISTORICAL RESULTS Rdw 12.9 11.5 - 14.5 % HISTORICAL RESULTS Platelets 210 150 - 451 K/cumm HISTORICAL RESULTS MPV 10.7(H) 7.4 - 10.4 fl HISTORICAL RESULTS Blood specimen (specimen) 06/03/2013 5:15 PM QUALITY CONTROL ENGINEER Curtis Corcoran MD LAB BLOOD ORDERABLES Final Result Performing Organization Address [facility] de Phone Number HISTORICAL RESULTS * (ABNORMAL) Blood WBC cell morphologic exam, auto (06/03/2013 5:15 PM QUALITY CONTROL ENGINEER) Lymphocytes 6.7(L) 25.0 - 33.0 % HISTORICAL RESULTS Monos 9.8 1.0 - 13.0 % HISTORICAL RESULTS Neutrophils 82.6(H) 54.0 - 69.0 % HISTORICAL RESULTS Eosinophils 0.6 0.0 - 10.0 % HISTORICAL RESULTS Basophils 0.2 0.0 - 1.0 % HISTORICAL RESULTS Immature granulocytes 0.1 0.0 - 1.0 % HISTORICAL RESULTS Lymphocytes, abs 0.6(L) 1.2 - 3.4 K/cumm HISTORICAL RESULTS Monocytes, absolute 0.8(L) 1.1 - 1.9 K/cumm HISTORICAL RESULTS Neutrophils, abs 7.0(H) 1.4 - 6.5 K/cumm HISTORICAL RESULTS Eosinophils, abs 0.1 0.0 - 0.7 cells/cum m HISTORICAL RESULTS Basophils, abs 0.0 0.0 - 0.2 K/cumm HISTORICAL RESULTS Immature granulocyte, abs 0.0 0.0 - 0.0 K/cumm HISTORICAL RESULTS Blood specimen (specimen) 06/03/2013 5:15 PM QUALITY CONTROL ENGINEER Curtis Corcoran MD LAB BLOOD ORDERABLES Final Result Performing Organization Address [facility] de Phone Number HISTORICAL RESULTS * (ABNORMAL) Serum comprehensive metabolic panel (06/03/2013 5:15 PM QUALITY CONTROL ENGINEER) BUN 8.0 6.0 - 23.0 mg/dl HISTORICAL RESULTS Sodium 136 134 - 143 mmol/L HISTORICAL RESULTS Potassium, sr 3.4 3.4 - 5.0 mmol/L HISTORICAL RESULTS Chloride 105 99 - 108 mmol/L HISTORICAL RESULTS CO2 24 23 - 32 mmol/L HISTORICAL RESULTS Glucose 83 70 - 199 mg/dl HISTORICAL RESULTS Comment: Note:The glucose is assumed non fasting Fastin-99 mg/dl Random: 70-199 mg/dl Either a fasting glucose > 126 mg/dL or a random glucose > 200 mg/dL plus symptoms is diagnostic of diabetes when confirmed on another day. Fasting values > 100 mg/dl but < 125 mg/dL are diagnostic of impaired fasting glucose. New reference ranges implemented 04/03/2013. Creatinine 0.81 0.60 - 1.30 mg/dl HISTORICAL RESULTS Comment: eGFR: >70 ml/min/1.73sq.m if non -Libyan. eGFR: >70 ml/min/1.73sq.m if -Libyan. AVE GFR for 20-29 yr. age group: ??116 ml/min/1.73sq.m Calculated using the MDRD Equation BUN/creat ratio 10 10 - 20 HIST ORICAL RESULTS A. gap 11 7 - 14 mmol/L HISTORICAL RESULTS Protein, sr 7.0 6.4 - 8.0 g/dl HISTORICAL RESULTS Alb 3.4 3.3 - 4.5 g/dl HISTORICAL RESULTS Alb/glob ratio 0.9(L) 1.1 - 1.8 HISTO RICAL RESULTS Calcium 8.9 8.6 - 9.8 mg/dl HISTORICAL RESULTS Bilirubin 0.2 0.0 - 1.1 mg/dl HISTORICAL RESULTS Alk phos 94 44 - 125 Units/L HISTORICAL RESULTS AST 33 5 - 40 Units/L HISTORICAL RESULTS Comment:AST - NOTE REFERENC E RANGE CHANGE ALT 34 15 - 70 Units/L HISTORICAL RESULTS Serum 06/03/2013 5:15 PM QUALITY CONTROL ENGINEER Curtis Corcoran MD LAB BLOOD ORDERABLES Final Result HISTORICAL RESULTS * XR Chest PA Lateral 2 View (06/03/2013 4:41 PM QUALITY CONTROL ENGINEER) Anatomical Region Laterality Modality Body, Chest N/A Radiographic Shanti ging 06/03/2013 4:41 PM QUALITY CONTROL ENGINEER Narrative 06/05/2013 6:19 AM QUALITY CONTROL ENGINEER XR Chest 2 Views ?[id number] ??Acc#: ??[id number] DATE OF EXAM: ??Jun 03 2013 CLINICAL HISTORY: Cough, chills, flu symptoms. RESULT: Two views of the chest demonstrate clear lungs bilaterally with no focal infiltrates. ??The heart size and pulmonary vascularity are normal. IMPRESSION: NO ACTIVE DISEASE. Interpreting Physician: ??DR VAN CALDERA M.D. ??Read on: ??Jun 04 2013 11:31A Transcribed by: ??jordan ??On: Jun 04 2013 12:59P Approved Electronically by: ??VERENICE Werner, DR PEARCE ??on: ??Jun 05 2013 6:19A Ordering DR: DR CURTIS CORCORAN Attending DR: RASHAUN REYEZ Procedure Note Provider, MD Mehul - 09/16/2016 XR Chest 2 Views [id number] Acc#: [id number] DATE OF EXAM: Jun 03 2013 CLINICAL HISTORY: Cough, chills, flu symptoms. RESULT: Two views of the chest demonstrate clear lungs bilaterally with no focalinfiltrates. The heart size and pulmonary vascularity are normal. IMPRESSION: NO ACTIVE DISEASE. Interpreting Physician: DR VAN CALDERA M.D. Read on: Jun 04 201311:31A Transcribed by: jordan On: Jun 04 2013 12:59P Approved Electronically by: DR VAN CALDERA M.D. on: Jun 05 20136:19A Ordering DR: DR CURTIS CORCORAN Attending DR: RASHAUN REYEZ us Historical Provider IMG XR PROCEDURES Final R esult * Urine Chlamydia, Gonorrhea DNA (06/03/2013 4:10 PM QUALITY CONTROL ENGINEER) Chlamydia DNA, ur See Report HISTORICAL RESULTS Urine 06/03/2013 4:10 PM QUALITY CONTROL ENGINEER us Curtis Corcoran MD LAB BLOOD ORDERABLES Final Result Performing Organization Address [facility] de Phone Number HISTORICAL RESULTS * Urine chorionic gonadotropin (HCG) (06/03/2013 4:10 PM QUALITY CONTROL ENGINEER) HCG, ur Negative NEGATIVE HISTORICAL RESULTS Urine 06/03/2013 4:10 PM QUALITY CONTROL ENGINEER Curtis Corcoran MD LAB BLOOD ORDERABLES Final Result Performing Organization Address [facility] de Phone Number HISTORICAL RESULTS * (ABNORMAL) Urinalysis (06/03/2013 4:10 PM QUALITY CONTROL ENGINEER) Color, ur YELLOW YELLOW HISTORICAL RESULTS Clarity, ur CLEAR CLEAR HISTORIC AL RESULTS Specific gravity, ur 1.025 1.000 - 1.030 gu HISTORICAL RESULTS Leukocyte esterase, ur Negative NEGATIVE HISTORICAL RESULTS Nitrites, ur Negative NEGATIVE HISTORI JOCELYN RESULTS pH, ur 6.0 6.0 HISTORICAL RESULTS Protein, ur Negative NEGATIVE HISTORIC AL RESULTS Glucose, ur Negative NEGATIVE HISTORIC AL RESULTS Ketones, ur 15 NEGATIVE HISTORIC AL RESULTS Urobilinogen, quant, ur 1.0 0.2 - 1.0 mg/dl HISTORICAL RESULTS Bilirubin, ur Negative NEGATIVE HISTOR ICAL RESULTS U Blood LARGE(A) NEGATIVE HISTORICAL RESULTS Urine 06/03/2013 4:10 PM QUALITY CONTROL ENGINEER Curtis Corcoran MD LAB BLOOD ORDERABLES Final Result Performing Organization Address [facility] de Phone Number HISTORICAL RESULTS * (ABNORMAL) Urine microscopy (06/03/2013 4:10 PM QUALITY CONTROL ENGINEER) WBC, ur 0 - 2 0 - 2 /hpf HISTORICA L RESULTS RBC, ur 10 - 25(A) 0 - 5 /hpf HISTORIC AL RESULTS Epithelial cells, ur 5 - 10(A) 0 - 2 /hpf HISTORICAL RESULTS Bacteria, ur 2+(A) NEGATIVE /hpf HISTORICAL RESULTS Hyaline casts 0 - 2 0 - 4 /lpf HISTO RICAL RESULTS Crystals, ur Negative NEGATIVE HISTORI JOCELYN RESULTS Yeast, ur Negative NEGATIVE HISTORICAL RESULTS Additional result, ur HISTORICAL RESULTS Comment:2+ MUCOUS Pathological casts, ur Negative NEGATIVE HISTORICAL RESULTS Urine 06/03/2013 4:10 PM QUALITY CONTROL ENGINEER us Curtis Corcoran MD LAB BLOOD ORDERABLES Final Result HISTORICAL RESULTS * (ABNORMAL) Serum theophylline drug level (06/03/2013 11:15 AM QUALITY CONTROL ENGINEER) Van <2.0(A) 10.0 - 20.0 mcg/ml HISTORICAL RESULTS Serum 06/03/2013 11:1 5 AM QUALITY CONTROL ENGINEER Narrative HISTORICAL RESULTS - 06/03/2013 12:12 PM QUALITY CONTROL ENGINEER THERAPEUTIC RANGE: 10-20 UG/ML TOXIC RANGE: ??GREATER THAN 20 UG/ML us Curtis Corcoran MD LAB BLOOD ORDERABLES Final Result Performing Organization Address [facility] de Phone Number HISTORICAL RESULTS * Discharge Laboratory Cumulative Report (06/03/2013 12:00 AM QUALITY CONTROL ENGINEER) 06/03/2013 Narrative HISTORICAL RESULTS - 06/04/2013 2:28 AM QUALITY CONTROL ENGINEER Patient No: [id number] ? [facility] Patient Name: TRAVON CORRAL ?[facility] Healthcare Age: 22 YRS ?: 1990 ?Sex:F ?[address] )[id number] ?? Adm Dt: 06/03/2013 ?[place], [place] ??[id number] Created: 06/04/2013 ??0228 ?? Pt. Type: E ? Discharge Dt: 06/03/2013 ? Pathologists: Katey Sales MD Admit DrSonia Attend Dr: CURTIS CORCORAN MD ? BLOOD CELL COUNTS ?Collection Date: ?06/03/13 ?Collection Time: ?1715 ? Ref Range: ?? Units: [4.00-10.50] /CMM ? WBC X 10^3 ?8.46 [4.20-5.40] ??/CMM ? RBC X 10^6 ?3.85 L [12.0-16.0] ??G/DL ? HGB ? 11.9 L [37.0-47.0] ??% ?HCT ? 36.0 L [77.0-97.0] ??FL ? MCV ? 93.5 [23.0-34.0] ??PG ? MCH ? 30.9 [32.0-36.0] ??% ?MCHC ?33.1 [11.5-14.5] ??% ?RDW ? 12.9 [150-451] ?? /CMM ? PLT X 10^3 ? 210 ?BLOOD CELL DIFFERENTIAL ?Collection Date: ?06/03/13 ?Collection Time: ?1715 ? Ref Range: ?? Units: [54.0-69.0] ??% ?NEUTROPHILS ? 82.6 H [25.0-33.0] ??% ?LYMPHOCYTES ?6.7 L [1.0-13.0] ??% ?MONOCYTES ?9.8 [0.0-10.0] ??% ?EOSINOPHILS ?0.6 [0.0-1.0] ?? % ?BASOPHILS ?0.2 ? /CMM ? A LYMPHOCYTE ? 0.6 L [0.0-1.0] ?? % ?IMM GRAN % ? 0.1 [0.00-0.02] ??/CMM ? A IMM GRAN ?0.01 [1.1-1.9] ?? /CMM ? A MONOCYTE ? 0.8 L [1.4-6.5] ?? /CMM ? A NEUTROPHIL ? 7.0 H [0.0-0.7] ?? /CMM ? A EOSINOPHIL ? 0.1 [0.0-0.2] ?? /CMM ? A BASOPHIL ? 0.0 Footnotes and Symbols: L = Low, H = High ?? CONTINUED ?Page: ?? 1 Patient No: [id number] ? [facility] Patient Name: TRAVON CORRAL ?[facility] Healthcare Age: 22 YRS ?: 1990 ?Sex:F ?[address] )[id number] ?? Adm Dt: 06/03/2013 ?[place], [place] ??[id number] Created: 06/04/2013 ??0228 ?? Pt. Type: E ? Discharge Dt: 06/03/2013 ? Pathologists: Katey Sales MD Admit DrSonia Attend Dr: CURTIS CORCORAN MD ? GENERAL CHEMISTRY ?Collection Date: ?06/03/13 ?Collection Time: ?1715 ? Ref Range: ?? Units: [134-143] ?? MMOL/L ? SODIUM ? 136 [3.4-5.0] ?? MMOL/L ? POTASSIUM ?3.4 [99.0-108.0] MMOL/L ? CHLORIDE ? 105.0 [23.0-32.0] ??MMOL/L ? TOTAL CO2 ? 23.5 ?? [7-14] ?MMOL/L ? ANION GAP ? 11 ??[70-199] ?? MG/DL ?GLUCOSE ? 83 f [6.4-8.0] ?? G/DL ? TOTAL PROTEIN ?7.0 [3.3-4.5] ?? G/DL ? ALBUMIN ?3.4 [1.1-1.8] ?A/G RATIO ?0.9 L [8.6-9.8] ?? MG/DL ?CALCIUM ?8.9 [0.0-1.1] ?? MG/DL ?BILI TOTAL ? 0.2 ??[44-125] ?? U/L ?ALK PHOS ?94 ?? [5-40] ?U/L ?AST(SGOT) ? 33 f ??[15-70] ?U/L ?ALT(SGPT) ? 34 f [6.0-23.0] ??MG/DL ?BUN ?8.0 ??[10-20] ? B/C RATIO ? 10 Footnotes and Symbols: L = Low, f = Footnote GLUCOSE (04/25/13 -- Current) Note:The glucose is assumed non fasting Fastin-99 mg/dl Random: 70-199 mg/dl Either a fasting glucose > 126 mg/dL or a random glucose > 200 mg/dL plus symptoms is diagnostic of diabetes when confirmed on another day. Fasting values > 100 mg/dl but < 125 mg/dL are diagnostic of impaired fasting glucose. New reference ranges implemented 04/03/2013. AST(SGOT) (11/02/12 -- Current) AST ??- NOTE REFERENCE RANGE CHANGE ALT(SGPT) (12/13/12 -- Current) ?? CONTINUED ?Page: ?? 2 Patient No: [id number] ? [facility] Patient Name: TRAVON CORRAL ?[facility] Healthcare Age: 22 YRS ?: 1990 ?Sex:F ?[address] )[id number] ?? Adm Dt: 06/03/2013 ?[place] ??[id number] Created: 06/04/2013 ??0228 ?? Pt. Type: E ? Discharge Dt: 06/03/2013 ? Pathologists: Katey Sales MD Admit Attend Dr: UCRTIS CORCORAN MD ? GENERAL CHEMISTRY ?Collection Date: ?06/03/13 ?Collection Time: ?1715 ? Ref Range: ?? Units: [0.60-1.30] ??MG/DL ?CREATININE ?0.81 f ?06/03/13 1715 eGFR: >70 ml/min/1.73sq.m if non -Libyan. eGFR: >70 ml/min/1.73sq.m if -Libyan. AVE GFR for 20-29 yr. age group: ??116 ml/min/1.73sq.m Calculated using the MDRD Equation FOOTNOTE ADDED ON ?? 06/03/13 ?? AT 1756 BY 999 ?THYROID FUNCTION TESTS ?Collection Date: ?06/03/13 ?Collection Time: ?1715 ? Ref Range: ?? Units: [0.7-1.3] ?? NG/DL ?FREE T4 ?1.1 [0.35-4.80] ??uIU/ML ? TSH ? 0.63 Footnotes and Symbols: f = Footnote ?? CONTINUED ?Page: ?? 3 Patient No: [id number] ? [facility] Patient Name: TRAVON CORRAL ?[facility] Healthcare Age: 22 YRS ?: 1990 ?Sex:F ?[address] )[phone] ?? Adm Dt: 06/03/2013 ?[place], [place] ??[id number] Created: 06/04/2013 ??0228 ?? Pt. Type: E ? Discharge Dt: 06/03/2013 ? Pathologists: Katey Sales MD Admit Attend Dr: CURTIS CORCORAN MD ? THERAPEUTIC DRUGS ?Collection Date: ?14 ?Collection Time: ?1715 ? Ref Range: ?? Units: [10.0-20.0] ??UG/ML ?THEOPHYLLINE ?<2.0 *f ? HORMONES ?Collection Date: ?06/03/13 ?Collection Time: ?1610 ? Ref Range: ?? Units: [NEGATIVE] ?U ? NEGATIVE ?URINALYSIS ?Collection Date: ?06/03/13 ?Collection Time: ?1610 ? Ref Range: ?? Units: [YELLOW] ? U COLOR ? YELLOW ??[CLEAR] ? U APPEARANCE ? CLEAR [1.000-1.030] ? U SPEC GRAVITY ? 1.025 [NEGATIVE] ?U LEUKO ESTRASE ? NEGATIVE [NEGATIVE] ?U NITRITE ? NEGATIVE ?? [6.0] ?U PH ? 6.0 [NEGATIVE] ?U PROTEIN ? NEGATIVE [NEGATIVE] ?U GLUCOSE ? NEGATIVE [NEGATIVE] ?U KETONES ? 15 [0.2- 1.0] ?UROBILINOGEN ? 1.0 Footnotes and Symbols: * = Abnormal, f = Footnote THEOPHYLLINE (Initial -- Current) THERAPEUTIC RANGE: 10-20 UG/ML TOXIC RANGE: ??GREATER THAN 20 UG/ML ?? CONTINUED ?Page: ?? 4 Patient No: [id number] ? [facility] Patient Name: TRAVNO CORRAL ?[facility] Age: 22 YRS ?: 1990 ?Sex:F ?[address] )[id number] ?? Adm Dt: 06/03/2013 ?[place] ??[id number] Created: 06/04/2013 ??0228 ?? Pt. Type: E ? Discharge Dt: 06/03/2013 ? Pathologists: Katey Sales MD Admit Attend Dr: CURTIS CORCORAN MD ?URINALYSIS ?Collection Date: ?06/03/13 ?Collection Time: ?1610 ? Ref Range: ?? Units: [NEGATIVE] ?U BILIRUBIN ? NEGATIVE [NEGATIVE] ?U BLOOD ?LARGE * ?? [0-2] ?U WBC ?0-2 ?? [0-5] ?U RBC ?10-25 * ?? [0-2] ?U EPI CELLS ? 5-10 * [NEGATIVE] ?U BACTERIA ?2+ * ?U YEASTS ?NEGATIVE ?? [0-4] ?U HYALINE CASTS ?0-2 [NEGATIVE] ?U CRYSTALS ?NEGATIVE ?U OTHER ?* [NEGATIVE] ?U PATH CASTS ?NEGATIVE Footnotes and Symbols: * = Abnormal ?? END OF CHART ? Page: ?? 5 us Historical Provider LAB BLOOD ORDERABLES Enma l Result HISTORICAL RESULTS * ELECTROCARDIOGRAPHY (ECG) (06/03/2013) Narrative 06/03/2013 Ordered by an unspecified provider. us Historical Provider ECG ORDERABLES Final Res ult documented in this encounter Visit Diagnoses Diagnosis Urinary tract infection Urinary tract infection, site not specified Other specified cardiac dysrhythmias documented in this encounter Care Teams Workplace Rehabilitation Officer Relationship Specialty Start Date End Date Rashaun Reyez MD [address] [place] [address] [place] [address] PCP - General 02/23/11 07/05/16 documented as of this encounter
--- OUTSIDE RECORDS SUMMARY | 2024-05-11 14:54 | XMS_ITS | Encounter Summary ---
Author Organization [facility] Healthcare Address [address] [place] [address] Care Team Providers Care Photo Producer Name Role Phone Unavailable Primary Care Provider Unavailabl e Encounter Details Date Type Department Care Team (Late st Contact Info) Description 02/18/2009 2:51 PM CDT - 02/18/2009 3:37 PM CDT Hospital Encounter [facility] Erwin Hutchins MD [address] [facility] [address] [place] [address] Gadiel Majano MD [address] [place] [address] Sciatica Social History Tobacco Use Types Packs/Day Years Used Date Smoking Tobacco: Never Assessed Comments Unknown Sex and Gender Information Value Date Recorded Sex Assigned at Not on file Legal Sex 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 PULL OUT OPERATOR Gender Identity Not on file Sexual Orientation Not on file documented as of this encounter Plan of Treatment Not on file documented as of this encounter Visit Diagnoses Diagnosis Sciatica documented in this encounter
--- OUTSIDE RECORDS SUMMARY | 2024-05-11 14:54 | XMS_ITS | Encounter Summary ---
Author Organization [facility] Healthcare Address [address] [place] [address] Care Team Providers Care Workforce Analyst Name Role Phone Unavailable Primary Care Provider Unavailabl e Encounter Details Date Type Department Care Team (Late st Contact Info) Description 09/21/2006 12:01 AM CDT - 10/21/2006 11:59 PM CDT Hospital Encounter [facility] Pooja Nichols MD [address] [place] [address] [address] Social History Tobacco Use Types Packs/Day Years Used Date Smoking Tobacco: Never Assessed Comments Unknown Sex and Gender Information Value Date Recorded Sex Assigned at Not on file Legal Sex 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 AGENCY CASHIER Gender Identity Not on file Sexual Orientation Not on file documented as of this encounter Plan of Treatment Not on file documented as of this encounter Visit Diagnoses Not on filedocumented in this encounter
--- OUTSIDE RECORDS SUMMARY | 2024-05-11 14:55 | XMS_ITS | Encounter Summary ---
Author Organization [facility] Address [address] [place] [address] Care Team Providers Care Service Learning Coordinator Name Role Phone Gadiel Majano MD Primary Care Provider [phone] Encounter Details Date Type Department Care Team (Late st Contact Info) Description 02/22/2024 External Device Data [facility] ABSTRACTION Provider, Abstract NO ADDRESS ON FILE Social History Tobacco Use Types Packs/Day Years Used Date Smoking Tobacco: Former Cigarettes 0.5 4 0 05/24/2018 - 05/24/2022 Passive Smoke Exposure: Past Smokeless Tobacco: Never Alcohol Use Standard Drinks/Week Comments Yes 2 (1 standard drink = 0.6 oz pur e alcohol) SOCIALLY Sex and Gender Information Value Date Recorded Sex Assigned at Not on file Gender Identity Not on file Sexual Orientation Not on file documented as of this encounter Plan of Treatment Upcoming Encounters Date Type Department Care Team (Late st Contact Info) Description 05/19/2024 9:00 AM SENIOR LINUX ENGINEER Appointment [facility] Support Services [address] [place] [address] Gadiel Majano MD [address] [place] [phone] 06/05/2024 8:30 AM SENIOR LINUX ENGINEER Appointment [facility] MRI [address] [place] [address] Gadiel Majano MD [address] [place] [phone] 08/09/2024 4:00 PM CDT Office Visit [facility] [address] [place] [address] [address] [place] [address] Jairo Matute PA [address] [place] [address] [address] [place] [phone] 01/23/2025 3:20 PM CDT Office Visit [address] [place] [address] Gadiel Majano MD [address] [place] [address] [address] [place] [address] 08/03/2025 8:30 AM CDT Office Visit [facility] [address] [facility] [address] [place] [address] Aliza Lion MD [address] [facility] [address] [place] [address] documented as of this encounter Visit Diagnoses Not on filedocumented in this encounter Care Teams Service Learning Coordinator Relationship Specialty Start Date End Date Gadiel Majano MD [address] [place] [address] [address] [place] [address] PCP - General 02/25/07 documented as of this encounter
--- OUTSIDE RECORDS SUMMARY | 2024-05-11 14:55 | XMS_ITS | Clinical Summary ---
Author Organization [facility] Address [address] [place] [address] Care Team Providers Care Lap Machine Operator Name Role Phone Gadiel Majano MD Primary Care Provider [phone] Allergies Active Allergy Reactions Criticality Noted Date Comments Cephalexin Nausea and Vomiting Low 09/02/2011 Ciprofloxacin Nausea and Vomiting Low 09/02/2011 Sulfamethoxazole-Trimethoprim Unknown Medications Medication Sig Dispensed Refills Start Date End Date Status levonorgestreL (MIRENA) 20 mcg/24 hours (7 yrs) 52 mg IUD by Intrauterine route. Active escitalopram oxalate (LEXAPRO) 5 mg tablet Take 1 Tablet (5 mg) by mouth daily. 30 Tablet 3 02/10/2022 Active Additional Information Patient not taking.Reported on 01/06/2023 Active Problems Patient Care Coordination No te Formatting of this note migh t be different from the original. Prev visit 01/26/24 Problem Noted Date Diagnosed Date Other specified anxiety disorders 02/10/2022 Medial epicondylitis of left elbow 01/20/2017 Numbness and tingling in left hand 12/10/2016 Contusion of left elbow 12/10/2016 Tobacco use 07/30/2015 Mirena 12/11/13 12/11/2013 Recurrent UTI 06/15/2011 Nausea alone 04/05/2011 Hypoglycemia 04/18/2007 Backache, unspecified 03/28/2007 Resolved Problems Problem Noted Date Diagnosed Date Resolved Date Positive BRONSON (antinuclear antibody) 12/10/2016 12/10/2016 UTI (urinary tract infection) 04/05/2011 06/15/2011 Acute pyelonephritis 04/05/2011 012 Dehydration 04/05/2011 06/15/2011 Acute sinusitis, unspecified 05/26/2007 11/26/2010 Acute pharyngitis 05/26/2007 11/26/2010 Syncope and collapse 04/18/2007 011 Nausea alone 04/18/2007 11/26/2010 Screening for lipoid disorders 04/18/2007 11/26/2010 Infectious colitis, enteriti s, and gastroenteritis 03/28/2007 11/26/2010 Abdominal pain, generalized 02/25/2007 11/26/2010 Encounters Date Type Department Care Team Description 05/11/2024 8:45 AM GROUND SYSTEMS ENGINEER Video Visit [facility] [address] [place] [address] Gadiel Majano MD Snoring (Primary Dx); Seizure; Insulin resistance; Hypoglycemia; Other specified anxiety disorders 05/11/2024 Telephone [facility] [address] [place] [address] Gadiel Majano MD Patient Communication 03/07/2024 External Device Data STL ABSTRACTION Provider, Abstract 02/22/2024 External Device Data STL ABSTRACTION Provider, Abstract from Last 3 Months Immunizations Name Administration Dates Next Due (ADACEL/BOOSTRIX)(10 YR UP) TDAP VACCINE, 0.5ML, IM 01/06/2023,11/03/2012 (GARDASIL)(9-45 YRS) HUMAN P APILLOMAVIRUS VACCINE, TYPES 6, 11, 16, 18, QUADRIVALENT (4VHPV), 3 DOSE, IM 10/04/2012,10/27/2011,09/02/2011 INFLUENZA VACCINE QUADRIVALE NT 6 MOS UP PF IM 02/10/2022 Influenza Seasonal Unspecifi ed Formulation IM 03/22/2015 Family History Medical History Relation Name Comments Cancer Brother Myeloma & Lymph shirlene Ovarian Cancer Maternal Grandmother Heart Disease Mother Migraines Mother Breast Cancer Neg Hx Colon Cancer Neg Hx Relation Name Status Comments Brother Alive Father Alive Maternal Grandfather Alive Maternal Grandmother Alive Mother Alive Paternal Grandfather Paternal Grandmother Alive Social History Tobacco Use Types Packs/Day Years Used Date Smoking Tobacco: Former Cigarettes 0.5 4 0 05/24/2018 - 05/24/2022 Passive Smoke Exposure: Past Smokeless Tobacco: Never Tobacco Cessation:Counseling Given: No Alcohol Use Standard Drinks/Week Comments Yes 2 (1 standard drink = 0.6 oz pur e alcohol) SOCIALLY Sex and Gender Information Value Date Recorded Sex Assigned at Not on file Gender Identity Not on file Sexual Orientation Not on file Last Filed Vital Signs Vital Sign Reading Time Taken Comments Blood Pressure 102/80 01/26/2024 2:53 PM CDT Pulse 64 05/11/2024 8:26 AM GROUND SYSTEMS ENGINEER Temperature 36.8 ??C (98.3 ??F) 09/07/2017 11:52 AM C DT Respiratory Rate 14 01/06/2023 3:59 PM CDT Oxygen Saturation 97% 01/26/2024 2:53 PM CDT Inhaled Oxygen Concentration - - Weight 79.8 kg (176 lb) 05/11/2024 8:26 AM GROUND SYSTEMS ENGINEER Height 165.1 cm (5' 5 ) 05/11/2024 8:26 AM GROUND SYSTEMS ENGINEER Body Mass Index 29.29 05/11/2024 8:26 AM GROUND SYSTEMS ENGINEER Plan of Treatment Upcoming Encounters Date Type Department Care Team (Late st Contact Info) Description 05/19/2024 9:00 AM GROUND SYSTEMS ENGINEER Appointment [facility] Services EEG S [facility] [address] [place] [phone] Gadiel Majano MD [address] [place], [place] [phone] 06/05/2024 8:30 AM GROUND SYSTEMS ENGINEER Appointment [facility] S [facility] [address] [place] [phone] Gadiel Majano MD [address] [place] [address] 08/09/2024 4:00 PM CDT Office Visit [facility] [place] [address] Jairo Matute PA [address] [place], [place] [address] 01/23/2025 3:20 PM CDT Office Visit [facility] Primary Care [facility] [address] [facility] [address] [place] [address] Gadiel Majano MD [address] [facility] [address] [place] [address] 08/03/2025 8:30 AM CDT Office Visit [facility] NEUROLOGY - [place] [address] [facility] [address] [place] [address] Aliza Lion MD [address] [facility] [address] [place] [address] Health Maintenance Due Date Last Done Comments HEPATITIS B VACCINES (1 of 3 - 19+ 3-dose series) 2009 INFLUENZA VACCINE (#1) 2023 02/10/2022, 2014 CERVICAL CANCER SCREENING 11/16/20252022, 11/03/2017, 11/03/2017, Additional history exists DTAP/TDAP/TD VACCINES (3 - Td or Tdap) 01/06/2033 01/06/2023, 11/03/2012 HPV VACCINES Completed 10/04/2012, 09/2011, 09/02/2011 Preventative Visit- Commercial Completed 01/26/2024, 07/12/2023, 01/06/2023, Additional history exists PNEUMOCOCCAL VACCINE 0-64 YEARS Aged Out No longer eligible based on patient's age to complete this topic Procedures Procedure Name Priority Date/Time Associated Diagnosis Comments COMPREHENSIVE METABOLIC PANEL Routine 04/04/2024 6:34 AM GROUND SYSTEMS ENGINEER Encounter for routine adult health examination with abnormal findings HEMOGLOBIN A1C Routine 04/04/2024 6:34 AM GROUND SYSTEMS ENGINEER Encounter for routine adult health examination with abnormal findings LIPID PANEL Routine 04/04/2024 6:34 AM GROUND SYSTEMS ENGINEER Encounter for routine adult health examination with abnormal findings TSH Routine 04/04/2024 6:34 AM GROUND SYSTEMS ENGINEER Encounter for routine adult health examination with abnormal findings C-PEPTIDE Routine 04/04/2024 6:34 AM GROUND SYSTEMS ENGINEER Insulin resistance CBC WITH DIFFERENTIAL Routine 04/04/2024 6:34 AM GROUND SYSTEMS ENGINEER Encounter for routine adult health examination with abnormal findings HM PAP SMEAR Routine 11/16/2022 9:54 AM CDT from Last 3 Months or Most Recently Relevant to Health Maintenance Results * CBC WITH DIFFERENTIAL (04/04/2024 6:34 AM GROUND SYSTEMS ENGINEER) WBC 5.9 3.8 - 10.8 Thousand/u L [facility] RBC 4.58 3.80 - 5.10 Million/uL [facility] HEMOGLOBIN 13.9 11.7 - 15.5 g/dL [facility] HEMATOCRIT 43.3 35.0 - 45.0 % [facility] MCV 94.5 80.0 - 100.0 fL [facility] MCH 30.3 27.0 - 33.0 pg [facility] MCHC 32.1 32.0 - 36.0 g/dL [facility] Comment: For adults, a slight decrease in the calculated MCHC value (in the range of 30 to 32 g/dL) is most likely not clinically significant; however, it should be interpreted with caution in correlation with other red cell parameters and the patient's clinical condition. RDW 11.7 11.0 - 15.0 % [facility] PLATELETS 248 140 - 400 Thousand/u L [facility] MPV 11.6 7.5 - 12.5 fL [facility] NEUTROPHIL ABSOLUTE 2,838 1,500 - 7,800 cells/uL [facility] LYMPHOCYTE ABSOLUTE 2,195 850 - 3,900 cells/uL [facility] MONOCYTE ABSOLUTE 620 200 - 950 cells/uL [facility] EOSINOPHIL ABSOLUTE 201 15 - 500 cells/uL [facility] BASOPHILS ABSOLUTE 47 0 - 200 cells/uL [facility] NEUTROPHIL 48.1 % [facility] LYMPHOCYTES 37.2 % [facility] MONOCYTE 10.5 % [facility] EOSINOPHILS 3.4 % [facility] BASOPHILS 0.8 % [facility] Comment: FASTING:YES FASTING: YES Test Performed at: [facility] ??[phone] Natali Adler MD Blood 04/04/2024 6:34 AM GROUND SYSTEMS ENGINEER 04/04/2024 6:36 AM GROUND SYSTEMS ENGINEER Gadiel Majano MD HEMATOLOGY ORDERABLE S Performing Organization Address City/[facility] Co de Phone Number [facility] [phone] [facility] [address] [address] * C-PEPTIDE (04/04/2024 6:34 AM GROUND SYSTEMS ENGINEER) C-PEPTIDE 2.77 0.80 - 3.85 ng/mL [facility] Comment: Test Performed at: [facility] ??[phone] Natali Adler MD Blood 04/04/2024 6:34 AM GROUND SYSTEMS ENGINEER 04/04/2024 6:36 AM GROUND SYSTEMS ENGINEER Gadiel Majano MD CHEMISTRY ORDERABLES Performing Organization Address [facility] Co de Phone Number [facility] [phone] [address] * TSH (04/04/2024 6:34 AM GROUND SYSTEMS ENGINEER) TSH 1.49 mIU/L [facility] Comment: ?Reference Range ?> or = 20 Years ??0.40-4.50 ? Ranges ?First trimester ?0.26-2.66 ?Second trimester ?? 0.55-2.73 ?Third trimester ?0.43-2.91 FASTING:YES FASTING: YES Test Performed at: [facility] [address] [place], [place] ??[address] Natali Adler MD Blood 04/04/2024 6:34 AM GROUND SYSTEMS ENGINEER 04/04/2024 6:36 AM GROUND SYSTEMS ENGINEER Gadiel Majano MD CHEMISTRY ORDERABLES [facility] [phone] [address] * HEMOGLOBIN A1C (04/04/2024 6:34 AM GROUND SYSTEMS ENGINEER) HEMOGLOBIN A1C 5.3 <5.7 % of total Hgb [facility] Comment: For the purpose of screening for the presence of diabetes: <5.7% ? Consistent with the absence of diabetes 5.7-6.4% ?Consistent with increased risk for diabetes ?(prediabetes) > or =6.5% ??Consistent with diabetes This assay result is consistent with a decreased risk of diabetes. Currently, no consensus exists regarding use of hemoglobin A1c for diagnosis of diabetes in children. According to [place] Diabetes Association (ADA) guidelines, hemoglobin A1c <7.0% represents optimal control in non- diabetic patients. Different metrics may apply to specific patient populations. Standards of Medical Care in Diabetes(ADA). ?? ESTIMATED AVERAGE GLUCOSE (MG/DL) 105 mg/dL [facility] ESTIMATED AVERAGE GLUCOSE (MMOL/L) 5.8 mmol/L [facility] Comment: FASTING:YES FASTING: YES Test Performed at: [facility] [address] [place], [place] ??[phone] Natali Adler Blood 04/04/2024 6:34 AM GROUND SYSTEMS ENGINEER 04/04/2024 6:36 AM GROUND SYSTEMS ENGINEER Gadiel Majano MD CHEMISTRY ORDERABLES [facility] [phone] [facility] [address] [place] [address] * LIPID PANEL (04/04/2024 6:34 AM GROUND SYSTEMS ENGINEER) CHOLESTEROL 177 <200 mg/dL [facility] HDL 62 > OR = 50 mg/dL [facility] TRIGLYCERIDE 74 <150 mg/dL [facility] LDL CALCULATED 99 mg/dL (calc) [facility] Comment: Reference range: <100 Desirable range <100 mg/dL for primary prevention; ?? <70 mg/dL for patients with CHD or diabetic patients with > or = 2 CHD risk factors. LDL-C is now calculated using the Pasquale-Gamal calculation, which is a validated novel method providing better accuracy than the Friedewald equation in the estimation of LDL-C. Pasquale LIPSCOMB et al. SUSI. 2013;310(19): 1836-5382 (http://education.Social IQ (Social Influence Quotient)/faq/QJT095) CHOL/HDL RATIO 2.9 <5.0 (calc) [facility] NON-HDL CHOLESTEROL 115 <130 mg/dL (calc) [facility] Comment: For patients with diabetes plus 1 major ASCVD risk factor, treating to a non-HDL-C goal of <100 mg/dL (LDL-C of <70 mg/dL) is considered a therapeutic option. Test Performed at: [facility] [address] ??[phone] Natali Adler MD Blood 04/04/2024 6:34 AM GROUND SYSTEMS ENGINEER 04/04/2024 6:36 AM GROUND SYSTEMS ENGINEER Gadiel Majano MD CHEMISTRY ORDERABLES Performing Organization Address City/State/ZIP Co dc Phone Number [facility] [phone] [facility] [address] [address] * COMPREHENSIVE METABOLIC PANEL (04/04/2024 6:34 AM GROUND SYSTEMS ENGINEER) GLUCOSE 96 65 - 99 mg/dL [facility] Comment: ? Fasting reference interval BUN 13 7 - 25 mg/dL [facility] CREATININE 0.78 0.50 - 0.97 mg/dL [facility] GFR 103 > OR = 60 mL/min/1. 73m2 [facility] BUN/CREAT RATIO SEE NOTE: (calc) [facility] Comment: ?? Not Reported: BUN and Creatinine are within ?? reference range. ? SODIUM 139 135 - 146 mmol/L [facility] POTASSIUM 4.1 3.5 - 5.3 mmol/L [facility] CHLORIDE 105 98 - 110 mmol/L [facility] CO2 29 20 - 32 mmol/L [facility] CALCIUM 9.5 8.6 - 10.2 mg/dL [facility] TOTAL PROTEIN 6.8 6.1 - 8.1 g/dL [facility] ALBUMIN 4.3 3.6 - 5.1 g/dL [facility] GLOBULIN 2.5 1.9 - 3.7 g/dL (calc) [facility] ALBUMIN/GLOBULIN RATIO 1.7 1.0 - 2.5 (calc) [facility] BILIRUBIN TOTAL 0.4 0.2 - 1.2 mg/dL [facility] ALKALINE PHOSPHATASE 60 31 - 125 U/L [facility] AST 14 10 - 30 U/L [facility] ALT 16 6 - 29 U/L [facility] Comment: FASTING:YES FASTING: YES Test [facility]formed [facility]: [facility] [address] [place], [place] ??[phone] Natali Adler MD Blood 04/04/2024 6:34 AM GROUND SYSTEMS ENGINEER 04/04/2024 6:36 AM GROUND SYSTEMS ENGINEER Gadiel Majano MD CHEMISTRY ORDERABLES [facility] [phone] [facility] [address] [place] [address] * HM PAP SMEAR (11/16/2022 9:54 AM CDT) Abstract Provider HEALTH MAINTENANCE [facility] INTERNAL MED [facility] CLIA# [id number] [address] [place], [place] [address] [place] [address] from Last 3 Months or Most Recently Relevant to Health Maintenance Advance Directives For more information, please contact: [phone] * Full Code (Latest Code Status on File) Date Activated Date Inactivated Comments 07/18/2012 8:05 AM 07/18/2012 12:08 PM * Full Code Date Activated Date Inactivated Comments 07/18/2012 6:58 AM 07/18/2012 8:05 AM * Full Code Date Activated Date Inactivated Comments 07/18/2012 6:04 AM 07/18/2012 6:58 AM Care Teams Lap Machine Operator Relationship Specialty Start Date End Date Gadiel Majano MD [address] [place] [address] [address] [place] [address] PCP - General 02/25/07
--- OUTSIDE RECORDS SUMMARY | 2024-05-11 14:55 | XMS_ITS | Encounter Summary ---
Author Organization [facility] Address [address] [place] [address] Care Team Providers Care Treatment Specialist Name Role Phone Gadiel Majano MD Primary Care Provider [phone] Encounter Details Date Type Department Care Team (Late st Contact Info) Description 03/07/2024 External Device Data STL ABSTRACTION Provider, [...] st Contact Info) Description 05/19/2024 9:00 AM BOAT BUFFER PLASTIC Appointment [facility] Support Services EEG [address] [place] [address] [place] [address] Gadiel Majano MD [address] [place] [address] 06/05/2024 8:30 AM BOAT BUFFER PLASTIC Appointment [facility] MRI [address] [place] [address] Gadiel Majano MD [address] [place] [address] 08/09/2024 4:00 PM CDT Office Visit [facility] [address] [place] [address] [address] [place] [address] Jairo Matute PA [address] [place] [address] [address] [place] [address] 01/23/2025 3:20 PM CDT Office Visit [address] [place] [address] Gadiel Majano MD [address] [place] [address] [address] [place] [address] 08/03/2025 8:30 AM CDT Office Visit [facility] NEUROLOGY - [facility] [address] [facility] [address] [place] [address] Aliza Lion MD [address] [facility] [address] [place] [address] documented as of this encounter Visit Diagnoses Not on filedocumented in this encounter Care Teams Treatment Specialist Relationship Specialty Start Date End Date Gadiel Majano MD [address] [place] [address] [address] [place] [address] PCP - General 02/25/07 documented as of this encounter
--- OUTSIDE RECORDS SUMMARY | 2024-05-11 14:56 | XMS_ITS | Encounter Summary ---
Author Organization [facility] Address [address] [place] [address] Care Team Providers Care Set Making Machine Operator Name Role Phone Gadiel Majnao MD Primary Care Provider [phone] Encounter Details Date Type Department Care Team (Late Contact Info) Description 12/12/2019 Orders Only [facility] Internal Medicine [address] [address] Provider, Abstract NO ADDRESS ON FILE Social History Tobacco Use Types Packs/Day Years Used Date Smoking Tobacco: Some Days Cigarettes 0.5 4 Smokeless Tobacco: Never Comments:one pack for a week Alcohol Use Standard Drinks/Week Comments Yes 0.8 (1 standard drink = 0.6 oz p ure alcohol) SOCIALLY Sex and Gender Information Value Date Recorded Sex Assigned at Not on file Gender Identity Not on file Sexual Orientation Not on file documented as of this encounter Plan of Treatment Upcoming Encounters Date Type Department Care Team (Late Contact Info) Description 05/19/2024 9:00 AM TECHNICIAN SUPPORT ASSOCIATION Appointment [facility] Support Services EEG [address] [address] [place] [address] Gadiel Majano MD [address] [place] [address] 06/05/2024 8:30 AM TECHNICIAN SUPPORT ASSOCIATION [facility] [address] [address] [place] [address] Gadiel Majano MD [address] [place] [address] 08/09/2024 4:00 PM CDT Office Visit [facility] [address] [place] [address] Jairo Matute PA [address] [place] [address] [address] [place] [address] 01/23/2025 3:20 PM CDT Office Visit [facility] [address] [place] [address] [address] [place] [address] Gadiel Majano MD [address] [place] [address] [address] [place] [address] 08/03/2025 8:30 AM CDT Office Visit [facility] NEUROLOGY [facility] [address] [facility] [address] [place] [address] Aliza Lion MD [address] [facility] [address] [place] [address] documented as of this encounter Procedures Procedure Name Priority Date/Time Associated Diagnosis Comments PATHOLOGY REPORT Routine 11/16/2019 documented in this encounter Results * PATHOLOGY REPORT (11/16/2019) Abstract Provider PATHOLOGY/CYTOLOGY O RDERABLES EXTERNAL LAB documented in this encounter Visit Diagnoses Not on filedocumented in this encounter Care Teams Set Making Machine Operator Relationship Specialty Start Date End Date Gadiel Majano MD [address] [place] [address] [address] [place] [address] PCP - General 02/25/07 documented as of this encounter
--- OUTSIDE RECORDS SUMMARY | 2024-05-11 14:56 | XMS_ITS | Encounter Summary ---
Author Organization [facility] Address [address] [place] [address] Care Team Providers Care Gluer Name Role Phone Gadiel Majano MD Primary Care Provider [phone] Reason for Referral * Radiology Services (Routine) - Closed Specialty Diagnoses / Procedures Referred By Contac t Referred To Contact Radiology Diagnoses Enlarged lymph node Procedures US HEAD NECK TISSUES Gadiel Majano MD [address] [place] [place] [phone] [facility] [place] [address] [phone] Referral ID Status Reason Start Date Expiration Date Visits Re quested Visits Authorized [id number] Closed 01/06/2023 02/06/2024 1 1 Reason for Visit * Radiology Services (Routine) - Closed Specialty Diagnoses / Procedures Referred By Contac t Referred To Contact Radiology Diagnoses Enlarged lymph node Procedures US HEAD NECK TISSUES Gadiel Majano MD [address] [place] [place] [phone] [address] [facility] [place] [address] [address] Referral ID Status Reason Start Date Expiration Date Visits Re quested Visits Authorized [id number] Closed 01/06/2023 02/06/2024 1 1 Encounter Details Date Type Department Care Team (Latest Contact Info) Description 01/21/2023 4:07 PM CDT - 01/21/2023 11:59 PM CDT Hospital Encounter [facility] [place] 801 [facility] [address] [place] [phone] Gadiel Majano MD [address] [place] [address] [address] [place] [phone] Discharge Disposition: Home or Self Care Social History Tobacco Use Types Packs/Day Years [...] this encounter Medications at Time of Discharge Medication Sig Dispensed Refills Start Date End Date escitalopram oxalate (LEXAPRO) 5 mg tablet Take 1 Tablet (5 mg) by mouth daily. 30 Tablet 3 02/10/2022 levonorgestreL (MIRENA) 20 mcg/24 hours (7 yrs) 52 mg IUD by Intrauterine route. documented as of this encounter Plan of Treatment Upcoming Encounters Date Type Department Care Team (Late st Contact Info) Description 05/19/2024 9:00 AM CONTRACT RECRUITER Appointment [facility] Services [address] [place] [address] [place] [phone] Gadiel Majano MD [address] [place] [address] [address] [place] [phone] 06/05/2024 8:30 AM CONTRACT RECRUITER Appointment [facility] [address] [place] [address] [place] [phone] Gadiel Majano MD [address] [place] [address] [address] [place] [phone] 08/09/2024 4:00 PM CDT Office Visit [facility] [address] [place] [address] [address] [place] [address] Jairo Matute PA 6[address] [facility] [address] [place] [phone] 01/23/2025 3:20 PM CDT Office Visit [facility] [address] [place] [address] [address] [place] [address] Gadiel Majano MD 637 [facility] [address] [place] [address] 08/03/2025 8:30 AM CDT Office Visit [facility] 5003[facility] [address] [facility] [address] [place] [address] Aliza Lion MD [address] [facility] [address] [place] [address] documented as of this encounter Procedures Procedure Name Priority Date/Time Associated Diagnosis Comments US HEAD NECK TISSUES Routine 01/21/2023 4:31 PM CDT Enlarged lymph node documented in this encounter Results * US HEAD NECK TISSUES (01/21/2023 4:31 PM CDT) Anatomical Region Laterality Modality Head Ultrasound 01/21/2023 4:35 PM CDT Impressions 01/22/2023 1:12 PM CDT IMPRESSION: Small subcutaneous lymph nodes in the right posterior and lateral neck with normal sonographic morphology. DICTATION LOCATION: Location 1 - [facility] ?? Narrative 01/22/2023 1:12 PM CDT ULTRASOUND HEAD AND NECK TISSUES, 01/21/2023. CLINICAL HISTORY: Enlarged lymph nodes, attention to posterior lymph nodes in neck. FINDINGS: Sagittal and transverse real-time examination with attention to the area of concern in the posterior right neck reveals a small subcutaneous lymph node with normal sonographic morphology measuring 0.9 x 0.9 x 0.5 cm in diameter. There is also a subcutaneous lymph node seen in the right lateral neck also with normal sonographic morphology measuring 0.8 x 0.8 x 0.5 cm in diameter. No drainable fluid is demonstrated. No soft tissue masses are seen. Procedure Note Gilmer Trujillo MD - 01/22/2023 ULTRASOUND HEAD AND NECK TISSUES, 01/21/2023. CLINICAL HISTORY: Enlarged lymph nodes, attention to posterior lymph nodes in neck. FINDINGS: Sagittal and transverse real-time examination with attention to the area of concern in the posterior right neck reveals a small subcutaneous lymph node with normal sonographic morphology measuring 0.9 x 0.9 x 0.5 cm in diameter. There is also a subcutaneous lymph node seen in the right lateral neck also with normal sonographic morphology measuring 0.8 x 0.8 x 0.5 cm in diameter. No drainable fluid is demonstrated. No soft tissue masses are seen. IMPRESSION: Small subcutaneous lymph nodes in the right posterior and lateral neck with normal sonographic morphology. DICTATION LOCATION: Location - [facility] Gadiel Majano MD ORDERABLES documented in this encounter Visit Diagnoses Diagnosis Enlarged lymph node Enlargement of lymph nodes documented in this encounter Care Teams Gluer Relationship Specialty Start Date End Date Gadiel Majano MD [address] [place] [place] [address] PCP - General 02/25/07 documented as of this encounter
--- OUTSIDE RECORDS SUMMARY | 2024-05-11 14:56 | XMS_ITS | Encounter Summary ---
Author Organization [facility] Address [address] [place] [address] Care Team Providers Care Battery Inspector Name Role Phone Gadiel Majano MD Primary Care Provider [phone] Encounter Details Date Type Department Care Team (Late Contact Info) Description 12/13/2019 Orders Only [facility] Internal Medicine [address] [address] Provider, Abstract NO ADDRESS ON [...] (Late Contact Info) Description 05/19/2024 9:00 AM HARNESS MENDER Appointment [facility] [address] [place] [address] [place] [address] Gadiel Majano MD [address] [place] [address] 06/05/2024 8:30 AM HARNESS MENDER [facility]ment [facility] [address] [place] [address] [place] [address] Gadiel Majano MD [address] [place] [address] 08/09/2024 4:00 PM CDT Office Visit [facility] 637 [facility] [address] [place] [address] Jairo Matute PA [address] [place] [address] [address] [place] [address] 01/23/2025 3:20 PM CDT Office Visit [facility] [address] [place] [address] [address] [place] [address] Gadiel Majano MD [address] [place] [address] [address] [place] [address] 08/03/2025 8:30 AM CDT Office Visit [facility] 5003B [address] [facility] [address] [place] [address] Aliza Lion MD 621 [address] [facility] [address] [place] [address] documented as of this encounter Procedures Procedure Name Priority Date/Time Associated Diagnosis Comments PATHOLOGY REPORT Routine 11/16/2019 documented in this encounter Results * PATHOLOGY REPORT (11/16/2019) Abstract Provider PATHOLOGY/CYTOLOGY O RDERABLES EXTERNAL LAB documented in this encounter Visit Diagnoses Not on filedocumented in this encounter Care Teams Battery Inspector Relationship Specialty Start Date End Date Gadiel Majano MD [address] [place] [address] [address] [place] [address] PCP - General 02/25/07 documented as of this encounter
--- OUTSIDE RECORDS SUMMARY | 2024-05-11 14:56 | XMS_ITS | Encounter Summary ---
Author Organization [facility] Address [address] [place] [address] Care Team Providers Care Php Developer Name Role Phone Gadiel Majano MD Primary Care Provider [phone] Reason for Visit * Reason Onset Date Comments Contraception 11/12/2017 MIRENA Encounter Details Date Type Department Care Team (Late st Contact Info) Description 11/12/2017 Telephone [facility] HUMAN RESOURCES EXECUTIVE - Medical [address] [place] [address] Yesenia Friedman DO 621 [facility] [address] [place] [address] Contraception (MIRENA) Social History Tobacco Use Types Packs/Day Years [...] encounter Miscellaneous Notes * Telephone Encounter - Brittany Barillas - 11/12/2017 8:57 AM CDT PT MUST HAVE U/S DONE TO DETERMINE IF IUD IS TRULY MALPOSITIONED. ONCE THE DETERMINATION IS MADE THE DEVICE MUST BE SENT BACK AND A REPLACEMENT DEVICE WILL NEED TO BE ORDERED AT THAT TIME. ONE FROM THE OFFICE CANNOT BE USED. THE SPECIALTY PHARMACY WILL MAIL OUT A SPECIAL DEVICE TO USE ON PT OTHERWISE PT WILL BE BILLED FOR DEVICE AND APPT COSTS. documented in this encounter Plan of Treatment Upcoming Encounters Date Type Department Care Team (Late st Contact Info) Description 05/19/2024 9:00 AM ATM MECHANIC Appointment [facility] EEG S [facility] [place] [address] [place] [phone] Gadiel Majano MD [address] [place] [address] [address] [place] [address] 06/05/2024 8:30 AM ATM MECHANIC Appointment [facility] S [facility] [address] [place] [address] Gadiel Majano MD [address] [place] [address] 08/09/2024 4:00 PM CDT Office Visit [facility] [address] [place] [address] Jairo Matute, LISA [address] [place], [place] [address] [address] 01/23/2025 3:20 PM CDT Office Visit [place] [address] [place] [address] Gadiel Majano MD [address] [place] [address] [address] [place] [address] 08/03/2025 8:30 AM CDT Office Visit [facility] - [place] [facility] [place] [address] 621 S [facility] [address] [place] [address] Aliza Lion MD 621 S [facility] [address] [place] [address] documented as of this encounter Visit Diagnoses Not on filedocumented in this encounter Care Teams Php Developer Relationship Specialty Start Date End Date Gadiel Majano MD [address] [place] [address] PCP - General 02/25/07 documented as of this encounter
--- OUTSIDE RECORDS SUMMARY | 2024-05-11 14:56 | XMS_ITS | Encounter Summary ---
Author Organization [facility] Address [address] [place] [address] Care Team Providers Care Steel Cutter Name Role Phone Gadiel Majano MD Primary Care Provider [phone] Encounter Details Date Type Department Care Team (Late st Contact Info) Description 07/12/2023 External Device Data STL ABSTRACTION Provider, Abstract [...] st Contact Info) Description 05/19/2024 9:00 AM SOILS ENGINEER Appointment [facility] Support Services EEG [address] [place] [address] [place] [address] Gadiel Majano MD [address] [place] [address] 06/05/2024 8:30 AM SOILS ENGINEER Appointment [facility] MRI [address] [place] [address] [place] [address] Gadiel Majano MD [address] [place] [address] 08/09/2024 4:00 PM CDT Office Visit [facility] [address] [place] [address] [address] [place] [address] Jairo Matute PA [address] [place] [address] [address] [place] [address] 01/23/2025 3:20 PM CDT Office Visit [address] [place] [address] Gadiel Majano MD [address] [place] [address] [address] [place] [address] 08/03/2025 8:30 AM CDT Office Visit [facility] NE[facility]OLOGY - [facility] 5003B [address] [facility] [address] [place] [address] Aliza Lion MD 621 S [facility] [address] [place] [address] documented as of this encounter Visit Diagnoses Not on filedocumented in this encounter Care Teams Steel Cutter Relationship Specialty Start Date End Date Gadiel Majano MD [address] [place] [address] [address] [place] [address] PCP - General 02/25/07 documented as of this encounter
--- OUTSIDE RECORDS SUMMARY | 2024-05-11 14:56 | XMS_ITS | Encounter Summary ---
Author Organization [facility] Address [address] [place] [address] Care Team Providers Care Telephone Answering Service Operator Name Role Phone Gadiel Majano MD Primary Care Provider [phone] Reason for Visit * Reason Comments Results HEART TEST WHICH WAS DONE LAST YEARS. Encounter Details Date Type Department Care Team (Late st Contact Info) Description 02/15/2019 3:45 PM CDT Office Visit [facility] Internal Medicine [address] [address] Gadiel Majano MD [address] [place] [address] Routine general medical examination at a health care facility (Primary Dx); Recurrent UTI; Scheuermann disease; Tobacco use Social History Tobacco Use Types Packs/Day Years [...] Sign Reading Time Taken Comments Blood Pressure 100/70 02/15/2019 3:45 PM CDT Pulse 82 02/15/2019 3:45 PM CDT Temperature - - Respiratory Rate - - Oxygen Saturation 97% 02/15/2019 3:45 PM CDT Inhaled Oxygen Concentration - - Weight 83.9 kg (185 lb) 02/15/2019 3:45 PM CDT Height 167.6 cm (5' 6 ) 02/15/2019 3:45 PM CDT Body Mass Index 29.86 02/15/2019 3:45 PM CDT documented in this encounter Progress Notes * Gadiel Majano MD - 02/15/2019 4:11 PM CDT Subjective: Trinh Corral is a 28 y.o. female. hpi Palpitations better Smoking Neck , back worse occ radiation legs Hx Scheuermann's, disease reviewed Patient Active Problem List Diagnosis Date Noted ??? Medial epicondylitis of left elbow 01/20/2017 ??? Numbness and tingling in left hand 12/10/2016 ??? Contusion of left elbow 12/10/2016 ??? Tobacco use 07/30/2015 ??? Mirena 12/11/13 12/11/2013 ??? Recurrent UTI 06/15/2011 ??? Nausea alone 04/05/2011 ??? Hypoglycemia 04/18/2007 ??? Backache, unspecified 03/28/2007 Current Outpatient Medications on File Prior to Visit Medication Sig Dispense Refill ??? levonorgestrel (MIRENA) 20 mcg/24 hr (5 years) IUD by Intrauterine route. ??? nitrofurantoin (MACROBID) 100 mg capsule Take 1 Capsule (100 mg) by mouth 2 times daily. 10 Capsule 1 ??? alclometasone (ACLOVATE) 0.05 % Ointment 3 times daily as needed. 2 ??? TAZORAC 0.05 % Cream daily. 4 No current facility-administered medications on file prior to visit. Allergies Allergen Reactions ??? Ciprofloxacin Nausea and Vomiting ??? Keflex [Cephalexin] Nausea and Vomiting ??? Sulfamethoxazole-Trimethoprim Unknown Past Medical History: Diagnosis Date ??? Enlarged lymph nodes OVER 1 MOS RT-X2 ??? Kyphosis (acquired) (postural) ??? Other general symptoms(780.99) age 5 or 6 rt kidney, reflux ??? UTI (urinary tract infection) CHRONIC Past Surgical History: Procedure Laterality Date ??? HX TONSILLECTOMY AGE 4 OR 5 ??? HX WISDOM TEETH EXTRACTION AGE 19 X4 ??? LA BX/REMV,LYMPH NODE,DEEP CERV 07/18/2012 CERVICAL LYMPH NODE BIOPSY performed by Ananda Celestin MD at [facility] Family History Problem Relation Name Age of Onset ??? Heart Disease Mother ??? Migraines Mother ??? Cancer Brother Myeloma & Lymphoma ??? Ovarian Cancer Maternal Grandmother ??? Breast Cancer Neg Hx ??? Colon Cancer Neg Hx Social History Tobacco Use ??? Smoking status: Current Some Day Smoker Packs/day: 0.50 Years: 4.00 Pack years: 2.00 Types: Cigarettes ??? Smokeless tobacco: Never Used ??? Tobacco comment: one pack for a week Substance Use Topics ??? Alcohol use: Yes Alcohol/week: 0.8 standard drinks Types: 1 Cans of beer per week Comment: SOCIALLY Review of Systems: Review of Systems - General ROS: positive for - weight gain Psychological ROS: stress at work Endocrine ROS: negative for polyuria/polydipsia Respiratory ROS: negative for cough, shortness of breath, or wheezing Cardiovascular ROS: negative for chest pain or dyspnea on exertion--with palpitations Gastrointestinal ROS: negative for reflux, abdominal pain, change in bowel habits, or black or bloody stools Genito-Urinary ROS:recent freq uti's again Exam/Objective: BP 100/70 Pulse 82 Ht 5' 6 (1.676 m) Wt 83.9 kg (185 lb) SpO2 97% BMI 29.86 kg/m?? General appearance: over wt nad Head: Normocephalic, without obvious abnormality, atraumatic Eyes: conjunctivae/corneas clear. PERRLA, EOM's intact. Lids appear normal. Ears: normal TM's (shiny without retraction) and external ear canals AU. No apparent lesions or masses. Hearing grossly normal. Nose: Nares normal. Septum midline. Mucosa normal. No drainage. Throat: Lips, mucosa, palate, oropharynx, and tongue normal. Oral mucosa unremarkable with non-inflamed posterior pharynx. Neck: supple, symmetrical, trachea midline, no lymphadenopathy, and thyroid: not enlarged, symmetric, no tenderness/mass/nodules. Lungs: breath sounds equal, clear to auscultation bilaterally, no retractions, no stridor, normal respiratory effort Heart: regular rate and rhythm, S1, S2 normal, no murmur, click, rub, gallop, or abnormal sounds. Abdomen: soft, non-tender. Bowel sounds normal. No masses, no organomegaly. Active bowel sounds. Skin: Skin color, texture, turgor normal. No rashes or lesions noted on arms, chest, or abdomen. Lymphatics: No focal or generalized lymphadenopathy. Neck Ext no edema Diffuse spine tenderness Mood stable Assessment and Plan: ASSESSMENT: ICD-10-CM ICD-9-CM 1. Routine general medical examination at a health care facility Z00.00 V70.0 CBC WITH DIFFERENTIAL COMPREHENSIVE METABOLIC PANEL LIPID PANEL TSH VITAMIN B12 LEVEL URINALYSIS WITH REFLEX CULTURE CBC WITH DIFFERENTIAL COMPREHENSIVE METABOLIC PANEL LIPID PANEL TSH VITAMIN B12 LEVEL URINALYSIS WITH REFLEX CULTURE 2. Recurrent UTI N39.0 599.0 3. Scheuermann disease M42.00 732.0 4. Tobacco use Z72.0 305.1 Normal BMI Range: 18 & older: > or = 18.5 and < 25 Body mass index is 29.86 kg/m??. Abnormal high BMI: Patient counseled on lifestyle modifications including weight loss and daily exercise. TOBACCO COUNSELING She was counseled to discontinue tobacco use. She was provided a prescription for tobacco cessation medication. Advise flu vac pt declines Back issues reviewed, discussed mri, pt not ready to do anything about it yet, MRI when pt ready Uti's refer urogyn, pt to check at [facility] PLAN: Orders Placed This Encounter ??? CBC WITH DIFFERENTIAL (Favorites) ??? COMPREHENSIVE METABOLIC PANEL (Favorites) ??? LIPID PANEL (Favorites) ??? TSH (Favorites) ??? VITAMIN B12 LEVEL ??? URINALYSIS WITH REFLEX CULTURE ??? varenicline (CHANTIX) 0.5 mg (11)- 1 mg (42) tablets in a dose pack Appropriate medications prescribed Appropriate patient instructions provided Follow-up as I have indicated. Medications and options explained to include common side effects. Understanding of medications, course, diagnosis, and expectations were expressed by patient/guardian. documented in this encounter Plan of Treatment Upcoming Encounters Date Type Department Care Team (Late st Contact Info) Description 05/19/2024 9:00 AM DESULFURIZER MACHINE Appointment [facility] EEG [address] [place] [address] [place] [phone] Gadiel Majano MD [address] [place] [address] [address] [place] [address] 06/05/2024 8:30 AM DESULFURIZER MACHINE Appointment [facility] S [facility] [address] [place] [phone] Gadiel Majano MD [address] [place] [address] [address] [place] [address] 08/09/2024 4:00 PM CDT Office Visit [address] [place] [address] Jairo Matute PA [address] [place] [address] [address] [place] [address] 01/23/2025 3:20 PM CDT Office Visit [address] [place] [address] Gadiel Majano MD [address] [place] [address] [address] [place] [address] 08/03/2025 8:30 AM CDT Office Visit [facility]UROLOG[facility] - [place] - [facility] 5003B [address] [facility] [address] [place] [address] Aliza Lion MD [address] [facility] [address] [place] [address] Scheduled Orders Name Type Priority Associated Diagnoses Orde r Schedule CBC WITH DIFFERENTIAL Lab Routine Routine general medical examination at a health care facility Expected: 02/15/2019, Expires: 02/15/2020 COMPREHENSIVE METABOLIC PANEL Lab Routine Routine general medical examination at a health care facility Expected: 02/15/2019, Expires: 02/15/2020 LIPID PANEL Lab Routine Routine general medical examination at a health care facility Expected: 02/15/2019, Expires: 02/15/2020 TSH Lab Routine Routine general medical examination at a health care facility Expected: 02/15/2019, Expires: 02/15/2020 VITAMIN B12 LEVEL Lab Routine Routine general medical examination at a [facility] care facility Expected: 08/16/2019, Expires: 02/16/2020 URINALYSIS WITH REFLEX CULTURE Lab Routine Routine general medical examination at a [facility] care facility Expected: 02/15/2019, Expires: 02/15/2020 documented as of this encounter Visit Diagnoses Diagnosis Routine general medical examination at a health care facility- Primary Recurrent UTI Urinary tract infection, site not specified Scheuermann disease Juvenile osteochondrosis of spine Tobacco use Tobacco use disorder documented in this encounter Care Teams Telephone Answering Service Operator Relationship Specialty Start Date End Date Gadiel Majano MD [address] [place] [phone] PCP - General 02/25/07 documented as of this encounter
--- OUTSIDE RECORDS SUMMARY | 2024-05-11 14:56 | XMS_ITS | Encounter Summary ---
Author Organization [facility] Address [address] [place] [address] Care Team Providers Care Obstetrician Name Role Phone Gadiel Majano MD Primary Care Provider Encounter Details Date Type Department Care Team (Late Contact Info) Description 11/03/2017 Abstract [facility] [address] [address] Gadiel Majano MD [address] [place] [address] Social History Tobacco Use Types Packs/Day Years [...] st Contact Info) Description 05/19/2024 9:00 AM MOLDING LINE ASSISTANT Appointment [facility] Support Services [address] [place] [address] [address] [place] [address] Gadiel Majano MD [address] [place] [address] 06/05/2024 8:30 AM MOLDING LINE ASSISTANT Appointment [facility] MRI [address] [place] [address] [facility] [place] [address] Gadiel Majano MD [address] [place] [address] [address] [place] [address] 08/09/2024 4:00 PM CDT Office Visit [facility] [address] [place] [address] [address] [place] [address] Jairo Matute, LISA [address] [place] [address] [address] [place] [phone] 01/23/2025 3:20 PM CDT Office Visit [facility] [address] [place] [phone] Gadiel Majano MD [address] [place] [address] [address] [place] [address] 08/03/2025 8:30 AM CDT Office Visit [facility] NEUROLOGY - [place] - [facility] 5003B [address] [facility] [address] [place] [address] Aliza Lion MD [address] [facility] [address] [place] [address] documented as of this encounter Procedures Procedure Name Priority Date/Time Associated Diagnosis Comments CBC WITH DIFFERENTIAL Routine 10/01/2017 TSH Routine 10/01/2017 HEMOGLOBIN A1C Routine 10/01/2017 VITAMIN B12 LEVEL Routine 10/01/2017 LIPID PANEL Routine 10/01/2017 documented in this encounter Results * VITAMIN B12 LEVEL (10/01/2017) VITAMIN B12 330 180 - 920 pg/mL EXTERNAL LAB Blood 10/01/2017 Abstract Provider CHEMISTRY ORDERABLES EXTERNAL LAB * CBC WITH DIFFERENTIAL (10/01/2017) WBC 7.0 3.8 - 9.9 K/uL EXTERNAL LAB WBC K/uL EXTERNAL LAB NRBCS % EXTERNAL LAB RBC 3.90 - 4.90 M/uL EXTERNAL LAB HEMOGLOBIN 14.2 11.9 - 15.5 g/dL EXTERNAL LAB HEMATOCRIT 43.5 35.6 - 45.5 % EXTERNAL LAB MCV 82.2 - 96.4 fL EXTERNAL LAB MCH 27.2 - 32.6 pg EXTERNAL LAB MCHC 31.5 - 35.5 g/dL EXTERNAL LAB PLATELETS 229 150 - 400 K/uL EXTERNAL LAB MPV 9.3 - 12.4 fL EXTERNAL LAB RDW 11.5 - 14.5 % EXTERNAL LAB RDW-STDEV 37.0 - 54.0 fL EXTERNAL LAB NEUTROPHILS % EXTERNAL LAB LYMPHOCYTES % EXTERNAL LAB MONOCYTES % EXTERNAL LAB EOSINOPHILS % EXTERNAL LAB BASOPHILS % EXTERNAL LAB ADJUSTED WBC K/uL EXTERNAL LAB ADJUSTED WBC K/uL EXTERNAL LAB NRBC 0 EXTERNAL LAB SEGMENTED NEUTROPHILS % EXTERNAL LAB BANDS RELATIVE % EXTERNAL LAB IMMATURE GRANULOCYTES % EXTERNAL LAB LYMPHOCYTES RELATIVE % EXTERNAL LAB ATYPICAL LYMPHOCYTES RELATIVE 0 % EXTERNAL LAB MONOCYTES RELATIVE % EXTERNAL LAB EOSINOPHILS RELATIVE % EXTERNAL LAB BASOPHILS RELATIVE % EXTERNAL LAB METAMYELOCYTES RELATIVE % EXTERNAL LAB MYELOCYTES % EXTERNAL LAB MYELOCYTES - REL (DIFF) % EXTERNAL LAB PROMYELOCYTES RELATIVE % EXTERNAL LAB BLAST % EXTERNAL LAB BLASTS RELATIVE % EXTERNAL LAB OTHER CELL EXTERNAL LAB PLATELET EST. EXTERNAL LAB NEUTROPHIL ABSOLUTE K/uL EXTERNAL LAB NEUTROPHILS ABSOLUTE K/uL EXTERNAL LAB BANDS ABSOLUTE K/??L EXTERNAL LAB LYMPHOCYTE ABSOLUTE K/uL EXTERNAL LAB LYMPHOCYTES ABSOLUTE K/uL EXTERNAL LAB MONOCYTE ABSOLUTE K/uL EXTERNAL LAB MONOCYTES ABSOLUTE K/uL EXTERNAL LAB EOSINOPHIL ABSOLUTE K/uL EXTERNAL LAB EOSINOPHILS ABSOLUTE K/uL EXTERNAL LAB BASOPHILS ABSOLUTE K/uL EXTERNAL LAB BASOPHILS ABSOLUTE K/uL EXTERNAL LAB METAMYELOCYTES ABSOLUTE 0.00 K/uL EXTERNAL LAB MYELOCYTES - ABS (DIFF) 0.00 K/uL EXTERNAL LAB PROMYELOCYTES ABSOLUTE 0.00 K/uL EXTERNAL LAB BLASTS ABSOLUTE 0.00 K/uL EXTERNAL LAB ATYPICAL LYMPHS ABSOLUTE K/uL EXTERNAL LAB IMMATURE GRANULOCYTES ABSOLUTE K/uL EXTERNAL LAB RBC MORPHOLOGY EXTERNAL LAB WBC MORPHOLOGY EXTERNAL LAB PLATELET MORPHOLOGY EXTERNAL LAB ANISOCYTOSIS /hpf EXTERNAL LAB POIKILOCYTES /hpf EXTERNAL LAB MICROCYTES /hpf EXTERNAL LAB MACROCYTES /hpf EXTERNAL LAB POLYCHROMASIA /hpf EXTERNAL LAB BASOPHILIC STIPPLING /hpf EXTERNAL LAB HYPOCHROMIA /hpf EXTERNAL LAB TARGET CELLS /hpf EXTERNAL LAB OVALOCYTES /hpf EXTERNAL LAB SCHISTOCYTES /hpf EXTERNAL LAB STOMATOCYTES /hpf EXTERNAL LAB SPHEROCYTES /hpf EXTERNAL LAB SICKLE CELLS /hpf EXTERNAL LAB ACANTHOCYTES /hpf EXTERNAL LAB REILLY CELLS /hpf EXTERNAL LAB TEAR DROP CELLS /hpf EXTERNAL LAB CRENATED RBCS EXTERNAL LAB ROULEAUX /hpf EXTERNAL LAB PAPPENHEIMER BODIES EXTERNAL LAB FIELDS-JOLLY BODIES /hpf EXTERNAL LAB TOXIC GRANULATION EXTERNAL LAB DOHLE BODIES /hpf EXTERNAL LAB HYPERSEGMENTED NEUTROPHILS /hpf EXTERNAL LAB VACUOLATED NEUTROPHILS /hpf EXTERNAL LAB AGRANULAR NEUTROPHILS EXTERNAL LAB SMUDGE CELLS /100 EXTERNAL LAB ALEXANDRO RODS /hpf EXTERNAL LAB CLUMPED PLATELETS EXTERNAL LAB GIANT PLATELETS EXTERNAL LAB OBSERVED 1 DIFF EXTERNAL LAB OBSERVED 2 DIFF EXTERNAL LAB TOTAL CELLS COUNTED IN DIFF EXTERNAL LAB IMMATURE GRANULOCYTES % EXTERNAL LAB Blood 10/01/2017 Abstract Provider HEMATOLOGY ORDERABLE S EXTERNAL LAB * HEMOGLOBIN A1C (10/01/2017) Pathologist [facility] ABSTRACTED HGB A1C EXTERNAL LAB HEMOGLOBIN A1C 4.9 4.0 - 5.6 % EXTERNAL LAB HEMOGLOBIN A1C EXTERNAL LAB GLUCOSE, MEAN BLOOD EXTERNAL LAB Blood 10/01/2017 Abstract Provider CHEMISTRY ORDERABLES EXTERNAL LAB * TSH (10/01/2017) Pathologist [facility] TSH 1.49 0.30 - 5.00 uIU/mL EXTERNAL LAB Blood 10/01/2017 Abstract Provider CHEMISTRY ORDERABLES EXTERNAL LAB * (ABNORMAL) LIPID PANEL (10/01/2017) Pathologist [facility] ABSTRACTED CHOLESTEROL [facility] ABSTRACTED TRIGLYCERIDE [facility] ABSTRACTED HDL [facility] ABSTRACTED LDL CALCULATED [facility] CHOLESTEROL 164 40 - 199 mg/dL [facility] TRIGLYCERIDE 56 150 mg/dL [facility] HDL 70(A) 40 - 60 mg/dL [facility] LDL CALCULATED 83 100 mg/dL [facility] Blood 10/01/2017 Abstract Provider CHEMISTRY ORDERABLES Performing Organization Address City/State/[facility] Co de Phone Number [facility] [id number] [id number] documented in this encounter Visit Diagnoses Not on filedocumented in this encounter Care Teams Obstetrician Relationship Specialty Start Date End Date Gadiel Majano MD [address] [place] [address] PCP - General 02/25/07 documented as of this encounter
--- OUTSIDE RECORDS SUMMARY | 2024-05-11 14:56 | XMS_ITS | Encounter Summary ---
Author Organization [facility] Address [address] [place] [address] Care Team Providers Care Residential Nurse Name Role Phone Gadiel Majano MD Primary Care Provider [phone] Encounter Details Date Type Department Care Team (Late Contact Info) Description 01/08/2023 Orders Only [facility] Primary Care [address] [address] Provider, Abstract NO ADDRESS ON FILE Social [...] Upcoming Encounters Date Type Department Care Team ([facility] Contact Info) Description 05/19/2024 9:00 AM PLATE MOLDER Appointment [facility] Support Services [place] [address] [place] [address] [place] [address] Gadiel Majano MD [address] [place] [address] [address] [place] [address] 06/05/2024 8:30 AM PLATE MOLDER [facility]ointment [facility] [address] [place] [address] [place] [address] Gadiel Majano MD [address] [place] [address] 08/09/2024 4:00 PM CDT Office Visit [facility] [address] [place] [address] [address] [place] [address] Jairo Matute PA [address] [place] [address] [address] [place] [address] 01/23/2025 3:20 PM CDT Office Visit [address], [place] [address] Gadiel Majano MD [address] [place] [address] 08/03/2025 8:30 AM CDT Office Visit [facility] NEUROLOGY - [facility] 5003B [address] [facility] [address] [place] [address] Aliza Lion MD [address] [facility] [address] [place] [address] documented as of this encounter Procedures Procedure Name Priority Date/Time Associated Diagnosis Comments HM PAP SMEAR Routine 11/16/2022 9:54 AM CDT documented in this encounter Results * HM PAP SMEAR (11/16/2022 9:54 AM CDT) Abstract Provider [facility] CLIA# [id number] [address] [place] [address] [address], [place] [address] documented in this encounter Visit Diagnoses Not on filedocumented in this encounter Care Teams Residential Nurse Relationship Specialty Start Date End Date Gadiel Majano MD [address] [place] [address] [address] [place] [address] PCP - General 02/25/07 documented as of this encounter
--- OUTSIDE RECORDS SUMMARY | 2024-05-11 14:56 | XMS_ITS | Encounter Summary ---
Author Organization [facility] Address [address] [place] [address] Care Team Providers Care Machinist Apprentice Name Role Phone Gadiel Majano MD Primary Care Provider [phone] Encounter Details Date Type Department Care Team (Late Contact Info) Description 01/28/[address] [facility] Primary Care [address] [address] Provider, Abstract NO ADDRESS ON [...] Date Type Department Care Team ([facility] Contact Info) Description 05/19/2024 9:00 AM SUPERVISOR DIE CASTING Appointment [facility] Support Services [address] [place] [address] [place] [address] Gadiel Majano MD [address] [place] [address] [address] [place] [address] 06/05/2024 8:30 AM SUPERVISOR DIE CASTING [facility]ment [facility] [address] [place] [address] [place] [address] Gadiel Majano MD [address] [place] [address] 08/09/2024 4:00 PM CDT Office Visit [facility] [address] [place] [address] [address] [place] [phone] Jairo Matute PA [address] [place] [address] [address] [place] [address] 01/23/2025 3:20 PM CDT Office Visit [address] [place], [place] [address] Gadiel Majano MD [address] [place] [address] 08/03/2025 8:30 AM CDT Office Visit [facility] NEUROLOGY - [facility] 5003B [address] [facility] [address] [place] [address] Aliza Lion MD 6[address] [facility] [address] [place] [address] documented as of this encounter Procedures Procedure Name Priority Date/Time Associated Diagnosis Comments MISCELLANEOUS LAB TEST Routine 01/10/2024 9:34 AM CDT documented in this encounter Results * MISCELLANEOUS LAB TEST (01/10/2024 9:34 AM CDT) Abstract Provider CHEMISTRY ORDERABLES [facility] INTERNAL MED [facility] CLIA# [id number] [address] [place] [address] [place], [place] [address] documented in this encounter Visit Diagnoses Not on filedocumented in this encounter Care Teams Machinist Apprentice Relationship Specialty Start Date End Date Gadiel Majano MD [address] [place] [address] [address] [place] [address] PCP - General 02/25/07 documented as of this encounter
--- OUTSIDE RECORDS SUMMARY | 2024-05-11 14:56 | XMS_ITS | Encounter Summary ---
Author Organization [facility] Address [address] [place] [address] Care Team Providers Care Parking Enforcement Manager Name Role Phone Gadiel Majano MD Primary Care Provider [phone] Encounter Details Date Type Department Care Team (Late st Contact Info) Description 01/19/2024 External Device Data [facility] ABSTRACTION Provider, Abstract [...] st Contact Info) Description 05/19/2024 9:00 AM OBSTETRICAL TECH Appointment [facility] Support Services [address] [place] [address] [place] [address] Gadiel Majano MD [address] [place] [address] 06/05/2024 8:30 AM OBSTETRICAL TECH Appointment [facility] MRI [address] [place] [address] [place] [address] Gadiel Majano MD [address] [place] [address] 08/09/2024 4:00 PM CDT Office Visit [facility] [address] [place] [address] [address] [place] [address] Jario Matute PA [address] [place] [address] [address] [place] [address] 01/23/2025 3:20 PM CDT Office Visit [address] [place] [address] Gadiel Majano MD [address] [place] [address] [address] [place] [address] 08/03/2025 8:30 AM CDT Office Visit [facility] NEUROLOGY - [facility] 5003B [address] [facility] [address] [place] [address] Aliza Lion MD [address] [facility] [address] [place] [address] documented as of this encounter Visit Diagnoses Not on filedocumented in this encounter Care Teams Parking Enforcement Manager Relationship Specialty Start Date End Date Gadiel Majano MD [address] [place] [address] [address] [place] [address] PCP - General 02/25/07 documented as of this encounter
--- OUTSIDE RECORDS SUMMARY | 2024-05-11 14:56 | XMS_ITS | Encounter Summary ---
Author Organization [facility] Address [address] [place] [address] Care Team Providers Care Filler Shredder Machine Name Role Phone Gadiel Majano MD Primary Care Provider [phone] Reason for Visit * Reason Comments Physical Encounter Details Date Type Department Care Team (Late st Contact Info) Description 01/26/2024 3:00 PM CDT Office Visit [facility] Primary Care [address] [place] [address] [place] [address] Gadiel Majano MD [address] [place] [address] [place] [address] [place] [address] Insulin resistance (Primary Dx); Encounter for routine adult health examination with abnormal findings; Obesity (BMI 30.0-34.9) Social History Tobacco Use Types Packs/Day Years [...] Pressure 102/80 01/26/2024 2:53 PM CDT Pulse 78 01/26/2024 2:53 PM CDT Temperature - - Respiratory Rate - - Oxygen Saturation 97% 01/26/2024 2:53 PM CDT Inhaled Oxygen Concentration - - Weight 83.5 kg (184 lb) 01/26/2024 2:53 PM CDT Height 165.1 cm (5' 5 ) 01/26/2024 2:53 PM CDT Body Mass Index 30.62 01/26/2024 2:53 PM CDT documented in this encounter Progress Notes * Gadiel Majano MD - 01/26/2024 2:53 PM CDT [employer] insulin level Wt issues On diet and ex Patient Active Problem List Diagnosis Code Backache, unspecified M54.9 Hypoglycemia E16.2 Nausea alone R11.0 Recurrent UTI N39.0 Mirena 12/11/13 Z97.5 Tobacco use Z72.0 Numbness and tingling in left hand R20.0, R20.2 Contusion of left elbow S50.02XA Medial epicondylitis of left elbow M77.02 Other specified anxiety disorders F41.8 exam BP 102/80 Pulse 78 Ht 5' 5 (1.651 m) Wt 83.5 kg (184 lb) SpO2 97% BMI 30.62 kg/m?? General appearance: over wt nad Head: Normocephalic, without obvious abnormality, atraumatic Eyes: conjunctivae/corneas clear. PERRLA, EOM's intact. Lids appear normal. Ears: normal TM's (shiny without retraction) and external ear canals AU. No apparent lesions or masses. Hearing grossly normal. Neck: supple, symmetrical, trachea midline, no lymphadenopathy, and thyroid: not enlarged, symmetric, no tenderness/mass/nodules. Lungs: breath sounds equal, clear to auscultation bilaterally, no retractions, no stridor, normal respiratory effort Heart: regular rate and rhythm Abdomen: soft, non-tender. Skin: Skin color, texture, turgor normal. No rashes or lesions noted on arms, chest, or abdomen. Lymphatics: No focal or generalized lymphadenopathy.cannot feel ln post area neck Ext no edema Mood stable ASSESSMENT: Encounter Diagnoses Name Primary? Insulin resistance Yes Encounter for routine adult health examination with abnormal findings Obesity (BMI 30.0-34.9) Insulin res Discussed glp 1 Discussed metformin Pt wants try with diet and ex before considering med Recheck lab Mediterranean diet discussed Depression Screen Positive: PHQ-2 score >= 3 or PHQ-9 score >= 9 PHQ-2 Total: 0 (01/26/2024 2:53 PM) PHQ-9 Total: 0 (01/26/2024 2:53 PM) DEPRESSION PLAN OF CARE Her depression screen was negative. ,TOBACCO COUNSELING She is not a tobacco/nicotine user. Health Maintenance Topic Date Due HEPATITIS B VACCINES (1 of 3 - 19+ 3-dose series) Never done INFLUENZA VACCINE (1) 12/23/2023 CERVICAL CANCER SCREENING 11/16/2025 DTAP/TDAP/TD VACCINES (3 - Td or Tdap) 01/06/2033 HPV VACCINES Completed Preventative Visit- Commercial Completed PNEUMOCOCCAL VACCINE 0-64 YEARS Aged Out Discussed cut out alchohol Flu vac pt declines Normal BMI Range: 18 & older: > or = 18.5 and < 25 Body mass index is 30.62 kg/m??. Abnormal high BMI: Patient counseled on lifestyle modifications including weight loss and daily exercise. PLAN: Orders Placed This Encounter COMPREHENSIVE METABOLIC PANEL HEMOGLOBIN A1C LIPID PANEL TSH C-PEPTIDE CBC WITH DIFFERENTIAL documented in this encounter Plan of Treatment Upcoming Encounters Date Type Department Care Team (Late st Contact Info) Description 05/19/2024 9:00 AM TYPING TEACHER Appointment [facility] EEG [address] [place] [address] [place] [address] Gadiel Majano MD [address] [place] [phone] 06/05/2024 8:30 AM TYPING TEACHER Appointment [facility] [address] [place] [address] Gadiel Majano MD [address] [place] [address] [address] [place] [address] 08/09/2024 4:00 PM CDT Office Visit [facility] Primary Care [facility] [address] [place] [address] [place] [address], [place] [address] Jairo Matute PA [address] [place] [address] [place] [address], [place] [address] 01/23/2025 3:20 PM CDT Office Visit [facility] Primary Care [facility] 637 [facility] [address] [place] [phone] Gadiel Majano MD 6[address] [facility] [address] [place] [address] 08/03/2025 8:30 AM CDT Office Visit [facility] NEUROLOGY - [place] - [facility] 5003B [address] [facility] [address] [place] [address] Aliza Lion MD [address] [facility] [address] [place] [address] documented as of this encounter Visit Diagnoses Diagnosis Insulin resistance- Primary Dysmetabolic Syndrome X Encounter for routine adult health examination with abnormal findings Obesity (BMI 30.0-34.9) Obesity, unspecified documented in this encounter Care Teams Filler Shredder Machine Relationship Specialty Start Date End Date Gadiel Majano MD [address] [place] [address] [place] [address] PCP - General 02/25/07 documented as of this encounter
--- OUTSIDE RECORDS SUMMARY | 2024-05-11 14:56 | XMS_ITS | Encounter Summary ---
Author Organization [facility] Address [address] [place] [address] Care Team Providers Care Dress Draper Name Role Phone Gadiel Majano MD Primary Care Provider [phone] Reason for Visit * Reason Onset Date Comments Results 01/22/2023 Encounter Details Date Type Department Care Team (Late Contact Info) Description 01/22/2023 Telephone [facility] Primary Care [address] [place] [address] Gadiel Majano MD 6[address] [facility] [address] [place] [address] Results Social History Tobacco Use Types Packs/Day Years [...] encounter Miscellaneous Notes * Telephone Encounter - Gadiel Majano MD - 01/22/2023 3:07 PM CDT Reviewed us with pt unclear significance Offered repeat 6 mo vs ent eval, she is ok with 6 mo recheck order placed documented in this encounter Plan of Treatment Upcoming Encounters Date Type Department Care Team (Late st Contact Info) Description 05/19/2024 9:00 AM RADIOLOGY SUPERVISOR Appointment [facility] EEG S [facility] [address] [place] [address] Gadiel Majano MD [address] [place] [address] 06/05/2024 8:30 AM RADIOLOGY SUPERVISOR Appointment [facility] S [facility] [address] [place] [address] Gadiel Majano MD [address] [place] [address] 08/09/2024 4:00 PM CDT Office Visit [address] [address] Jairo Matute, LISA [address] [place] [address] 01/23/2025 3:20 PM CDT Office Visit [address] [address] Gadiel Majano MD [address] [place] [address] 08/03/2025 8:30 AM CDT Office Visit [facility] NEUROLOGY - [place] 5003B [address] [facility] [address] [place] [address] Aliza Lion MD [address] [facility] [address] [place] [address] documented as of this encounter Visit Diagnoses Diagnosis Enlarged lymph node- Primary Enlargement of lymph nodes documented in this encounter Care Teams Dress Draper Relationship Specialty Start Date End Date Gadiel Majano MD [address] [place] [address] PCP - General 02/25/07 documented as of this encounter
--- OUTSIDE RECORDS SUMMARY | 2024-05-11 14:56 | XMS_ITS | Encounter Summary ---
Author Organization [facility] Address [address] [place] [address] Care Team Providers Care Hand Turner Name Role Phone Gadiel Majano MD Primary Care Provider [phone] Encounter Details Date Type Department Care Team (Late st Contact Info) Description 01/13/2024 External Device Data [facility] ABSTRACTION Provider, Abstract [...] st Contact Info) Description 05/19/2024 9:00 AM WAREHOUSE PACKER Appointment [facility] Support Services EEG [address] [place] [address] [place] [address] Gadiel Majano MD [address] [place] [address] 06/05/2024 8:30 AM WAREHOUSE PACKER Appointment [facility] MRI [address] [place] [address] [place] [address] Gadiel Majano MD [address] [place] [address] 08/09/2024 4:00 PM CDT Office Visit [facility] [address] [place] [address] [address] [place] [address] Jairo Matute PA [address] [place] [address] [address] [place] [phone] 01/23/2025 3:20 PM CDT Office Visit [address] [place] [address] Gadiel Majano MD [address] [place] [address] [address] [place] [address] 08/03/2025 8:30 AM CDT Office Visit [facility] NEUROLOGY - [facility] [address] [facility] [address] [place] [address] Aliza Lion MD [address] [facility] [address] [place] [address] documented as of this encounter Visit Diagnoses Not on filedocumented in this encounter Care Teams Hand Turner Relationship Specialty Start Date End Date Gadiel Majano MD [address] [place] [address] [address] [place] [address] PCP - General 02/25/07 documented as of this encounter
--- OUTSIDE RECORDS SUMMARY | 2024-05-11 14:56 | XMS_ITS | Encounter Summary ---
Author Organization [facility] Address [address] [place] [address] Care Team Providers Care Cement Tester Assistant Name Role Phone Gadiel Majano MD Primary Care Provider Encounter Details Date Type Department Care Team (Late st Contact Info) Description 08/20/2023 External Device Data STL ABSTRACTION Provider, Abstract [...] st Contact Info) Description 05/19/2024 9:00 AM TRENCH TRIMMER FINE Appointment [facility] Support Services [address] [place] [address] [address] [place] [address] Gadiel Majano MD [address] [place] [address] 06/05/2024 8:30 AM TRENCH TRIMMER FINE Appointment [facility] MRI [address] [place] [address] [address] [place] [address] Gadiel Majano MD [address] [place] [address] 08/09/2024 4:00 PM CDT Office Visit [facility] [address] [place] [address] [address] [place] [address] Jairo Matute PA [address] [place] [address] [address] [place] [address] 01/23/2025 3:20 PM CDT Office Visit [address] [place] [address] Gadiel Majano MD [address] [place] [address] [address] [place] [address] 08/03/2025 8:30 AM CDT Office Visit [facility] NEUROLOGY - [facility] 5003B [address] [facility] [address] [place] [address] Aliza Lion MD [address] [facility] [address] [place] [address] documented as of this encounter Visit Diagnoses Not on filedocumented in this encounter Care Teams Cement Tester Assistant Relationship Specialty Start Date End Date Gadiel Majano MD [address] [place] [address] [address] [place] [address] PCP - General 02/25/07 documented as of this encounter
--- OUTSIDE RECORDS SUMMARY | 2024-05-11 14:56 | XMS_ITS | Encounter Summary ---
Author Organization [facility] Address [address] [place] [address] Care Team Providers Care Forming Tube Selector Name Role Phone Gadiel Majano MD Primary Care Provider [phone] Encounter Details Date Type Department Care Team [...] st Contact Info) Description 05/19/2024 9:00 AM AIR LIFT OPERATOR Appointment [facility] Support Services [address] [place] [address] Gadiel Majano MD [address] [place] [phone] 06/05/2024 8:30 AM AIR LIFT OPERATOR Appointment [facility] MRI [address] [place] [address] Gadiel Majano MD [address] [place] [phone] 08/09/2024 4:00 PM CDT Office Visit [facility] [address] [place] [address] [address] [place] [address] Jairo Matute PA [address] [place] [address] [address] [place] [address] 01/23/2025 3:20 PM CDT Office Visit [address] [place] [address] Gadiel Majano MD [address] [place] [address] [address] [place] [address] 08/03/2025 8:30 AM CDT Office Visit [facility] NEUROLOGY - [facility] 5003B [address] [facility] [address] [place] [address] Aliza Lion MD [address] [facility] [address] [place] [address] documented as of this encounter Visit Diagnoses Not on filedocumented in this encounter Care Teams Forming Tube Selector Relationship Specialty Start Date End Date Gadiel Majano MD [address] [place] [address] [address] [place] [address] PCP - General 02/25/07 documented as of this encounter
--- OUTSIDE RECORDS SUMMARY | 2024-05-11 14:56 | XMS_ITS | Encounter Summary ---
Author Organization [facility] Address [address] [place] [address] Care Team Providers Care Supervisor Files Name Role Phone Gadiel Majano MD Primary Care Provider [phone] Encounter Details Date Type Department Care Team (Late st Contact Info) Description 06/18/2023 External Device Data STL ABSTRACTION Provider, Abstract [...] st Contact Info) Description 05/19/2024 9:00 AM HOTEL CONTROLLER Appointment [facility] Support Services [address] [place] [address] [address] [place] [address] Gadiel Majano MD [address] [place] [address] 06/05/2024 8:30 AM HOTEL CONTROLLER Appointment [facility] MRI [address] [place] [address] Gadiel Majano MD [address] [place] [phone] 08/09/2024 4:00 PM CDT Office Visit [facility] [address] [place] [address] [address] [place] [address] Jairo Matute PA [address] [place] [address] [address] [place] [address] 01/23/2025 3:20 PM CDT Office Visit [address] [place] [address] Gadiel Majano MD [address] [place] [address] [address] [place] [address] 08/03/2025 8:30 AM CDT Office Visit [facility] NEUROLOGY - [facility] 5003B [address] [facility] [address] [place] [address] Aliza Lion MD [address] [facility] [address] [place] [address] documented as of this encounter Visit Diagnoses Not on filedocumented in this encounter Care Teams Supervisor Files Relationship Specialty Start Date End Date Gadiel Majano MD [address] [place] [address] [address] [place] [address] PCP - General 02/25/07 documented as of this encounter
--- OUTSIDE RECORDS SUMMARY | 2024-05-11 14:56 | XMS_ITS | Encounter Summary ---
Author Organization [facility] Address [address] [place] [address] Care Team Providers Care Pattern Drafter Name Role Phone Gadiel Majano MD Primary Care Provider [phone] Reason for Visit * Reason Onset Date Comments Urinary Frequency 01/12/2018 Encounter Details Date Type Department Care Team (Late Contact Info) Description 01/12/2018 Telephone [facility] Internal Medicine [address] [address] Gadiel Majano MD [address] [place] [address] Urinary Frequency Social History Tobacco Use Types Packs/Day Years [...] Telephone Encounter - Gadiel Majano MD - 01/12/2018 1:25 PM CDT Spoke with pt says can take macrobid Fu appt if not improved documented in this encounter Plan of Treatment Upcoming Encounters Date Type Department Care Team (Late Contact Info) Description 05/19/2024 9:00 AM LIFT TRUCK MECHANIC Appointment [facility] EEG S [facility] [address] [place] [address] Gadiel Majano MD [address] [place] [address] [address] [place] [address] 06/05/2024 8:30 AM LIFT TRUCK MECHANIC Appointment [facility] S [facility] [address] [place] [address] Gadiel Majano MD [address] [place] [address] 08/09/2024 4:00 PM CDT Office Visit [facility] Primary Care [address] [place] [address] Jairo Matute, LISA [address] [place] [address] 01/23/2025 3:20 PM CDT Office Visit [address] [address] Gadiel Majano MD [address] [place] [address] 08/03/2025 8:30 AM CDT Office Visit [facility] NEUROLOG[facility] - [facility] [facility] [place] 5003B [address] [facility] [place] [address] [place] [address] Aliza Lion MD [address] [facility] [address] [place] [address] documented as of this encounter Visit Diagnoses Not on filedocumented in this encounter Care Teams Pattern Drafter Relationship Specialty Start Date End Date Gadiel Majano MD [address] [place] [address] [address] [place] [address] PCP - General 02/25/07 documented as of this encounter
--- OUTSIDE RECORDS SUMMARY | 2024-05-11 14:56 | XMS_ITS | Encounter Summary ---
Author Organization [facility] Address [address] [place] [address] Care Team Providers Care Order Processing Clerk Name Role Phone Gadiel Majano MD Primary Care Provider [phone] Reason for Visit * Reason Comments Physical Encounter Details Date Type Department Care Team (Late st Contact Info) Description 02/10/2022 3:35 PM CDT Office Visit [facility] Primary Care [address] [place] [address] Gadiel Majano MD [address] [place] [address] [address] [place] [address] Need for influenza vaccination (Primary Dx); Recurrent UTI; Tobacco use; Encounter for routine adult health examination with abnormal findings; Other specified anxiety disorders Social History Tobacco Use Types Packs/Day Years [...] on file Sexual Orientation Not on file COVID-19 Exposure Response Date Recorded In the last 10 days, have yo u been in contact with someone who was confirmed or suspected to have Coronavirus/COVID-19? Unable to assess 02/10/2022 8:01 AM CDT documented as of this encounter Last Filed Vital Signs Vital Sign Reading Time Taken Comments Blood Pressure 106/72 02/10/2022 3:48 PM CDT Pulse 93 02/10/2022 3:48 PM CDT Temperature - - Respiratory Rate - - Oxygen Saturation 98% 02/10/2022 3:48 PM CDT Inhaled Oxygen Concentration - - Weight 76.2 kg (168 lb) 02/10/2022 3:48 PM CDT Height 169 cm (5' 6.54 ) 02/10/2022 3:48 PM CDT Body Mass Index 26.68 02/10/2022 3:48 PM CDT documented in this encounter Progress Notes * Gadiel Majano MD - 02/10/2022 3:56 PM CDT Subjective: Trinh Corral is a 31 y.o. female. Hpi Lost wt Still back issues Smoking reviewed Still anxiety issues smoking Patient Active Problem List Diagnosis Date Noted Other specified anxiety disorders 02/10/2022 Medial epicondylitis of left elbow 01/20/2017 Numbness and tingling in left hand 12/10/2016 Contusion of left elbow 12/10/2016 Tobacco use 07/30/2015 Mirena 12/11/13 12/11/2013 Recurrent UTI 06/15/2011 Nausea alone 04/05/2011 Hypoglycemia 04/18/2007 Backache, unspecified 03/28/2007 Current Outpatient Medications on File Prior to Visit Medication Sig Dispense Refill levonorgestreL (MIRENA) 20 mcg/24 hours (7 yrs) 52 mg IUD by Intrauterine route. No current facility-administered medications on file prior to visit. Allergies Allergen Reactions Sulfamethoxazole-Trimethoprim Unknown Cephalexin Nausea and Vomiting Ciprofloxacin Nausea and Vomiting Past Medical History: Diagnosis Date Enlarged lymph nodes OVER 1 MOS RT-X2 Kyphosis (acquired) (postural) Other general symptoms(780.99) age 5 or 6 rt kidney, reflux UTI (urinary tract infection) CHRONIC Past Surgical History: Procedure Laterality Date HX TONSILLECTOMY AGE 4 OR 5 HX WISDOM TEETH EXTRACTION AGE 19 X4 PA BX/REMV,LYMPH NODE,DEEP CERV 07/18/2012 CERVICAL LYMPH NODE BIOPSY performed by Ananda Celestin MD at [facility] OR MAIN Family History Problem Relation Name Age of Onset Heart Disease Mother Migraines Mother Cancer Brother Myeloma & Lymphoma Ovarian Cancer Maternal Grandmother Breast Cancer Neg Hx Colon Cancer Neg Hx Social History Tobacco Use Smoking status: Some Days Packs/day: 0.50 Years: 4.00 Pack years: 2.00 Types: Cigarettes Smokeless tobacco: Never Tobacco comments: one pack for a week Substance Use Topics Alcohol use: Yes Alcohol/week: 0.8 standard drinks Types: 1 Cans of beer per week Comment: SOCIALLY Exam/Objective: BP 106/72 Pulse 93 Ht 5' 6.54 (1.69 m) Wt 76.2 kg (168 lb) SpO2 98% BMI 26.68 kg/m?? General appearance: lost wt nad Head: Normocephalic, without obvious abnormality, atraumatic Eyes: conjunctivae/corneas clear. PERRLA, EOM's intact. Lids appear normal. Ears: normal TM's (shiny without retraction) and external ear canals AU. No apparent lesions or masses. Hearing grossly normal. Nose: mask Throat: mask Neck: supple, symmetrical, trachea midline, no lymphadenopathy, and thyroid: not enlarged, symmetric, no tenderness/mass/nodules. Lungs: breath sounds equal, clear to auscultation bilaterally, no retractions, no stridor, normal respiratory effort Heart: regular rate and rhythm Abdomen: soft, non-tender. Bowel sounds normal. No masses, no organomegaly. Active bowel sounds. Skin: Skin color, texture, turgor normal. Lymphatics: No focal or generalized lymphadenopathy. Neck Ext no edema Mood stable Assessment and Plan: ASSESSMENT: ICD-10-CM ICD-9-CM 1. Need for influenza vaccination Z23 V04.81 INFLUENZA VACCINE QUADRIVALENT 6 MOS UP PF IM 2. Recurrent UTI N39.0 599.0 URINALYSIS WITH REFLEX CULTURE 3. Tobacco use Z72.0 305.1 4. Encounter for routine adult health examination with abnormal findings Z00.01 V70.0 CBC WITH DIFFERENTIAL COMPREHENSIVE METABOLIC PANEL LIPID PANEL TSH VITAMIN B12 LEVEL 5. Other specified anxiety disorders F41.8 300.09 Check lab TOBACCO COUNSELING She was counseled to discontinue tobacco use. Anxiety ok low dose med Recurrent uti check ua Normal BMI Range: 18 & older: > or = 18.5 and < 25 Body mass index is 26.68 kg/m??. Abnormal high BMI: Patient counseled on lifestyle modifications including weight loss and daily exercise. Doing better Health Maintenance Topic Date Due HEPATITIS B VACCINES (1 of 3 - 3-dose series) Never done PNEUMOCOCCAL VACCINE 0-64 YEARS (1 - PCV) Never done CERVICAL CANCER SCREENING 11/03/2020 DTAP/TDAP/TD VACCINES (2 - Td or Tdap) 11/03/2022 INFLUENZA VACCINE Completed Preventative Visit- Commercial Completed Flu vac Covid booster discussed PLAN: Orders Placed This Encounter Influenza Vaccine quadrivalent 6 mos up PF IM CBC WITH DIFFERENTIAL (Favorites) COMPREHENSIVE METABOLIC PANEL (Favorites) LIPID PANEL (Favorites) TSH (Favorites) VITAMIN B12 LEVEL (Chemistry) URINALYSIS WITH REFLEX CULTURE escitalopram oxalate (LEXAPRO) 5 mg tablet Appropriate medications prescribed Appropriate patient instructions provided Follow-up as I have indicated. Medications and options explained to include common side effects. Understanding of medications, course, diagnosis, and expectations were expressed by patient/guardian. TOBACCO COUNSELING She was counseled to discontinue tobacco use. * Mendoza Durham - 02/10/2022 3:51 PM CDT TOBACCO COUNSELING She was counseled to discontinue tobacco use. documented in this encounter Plan of Treatment Upcoming Encounters Date Type Department Care Team (Late st Contact Info) Description 05/19/2024 9:00 AM FACULTY CRIMINAL JUSTICE Appointment [facility] EEG [address] [place] [address] Gadiel Majano MD [address] [place], [place] [address] 06/05/2024 8:30 AM FACULTY CRIMINAL JUSTICE Appointment [facility] [address] [place] [address] Gadiel Majano MD [address] [place] [address] [address] [place] [address] 08/09/2024 4:00 PM CDT Office Visit [facility] Primary Care [address] [phone] Jairo Matute PA [address] [place] [address] [address] [place] [address] 01/23/2025 3:20 PM CDT Office Visit [facility] Primary Care [facility] [address] [facility] [address] [place] [phone] Gadiel Majano MD [address] [place] [address] [address] [place] [address] 08/03/2025 8:30 AM CDT Office Visit [facility] NEUROLOGY - [facility] 5003B [address] [facility] [address] [place] [address] Aliza Lion MD [address] [facility] [address] [place] [address] documented as of this encounter Visit Diagnoses Diagnosis Need for influenza vaccination- Primary Need for prophylactic vaccination and inoculation against influenza Recurrent UTI Urinary tract infection, site not specified Tobacco use Tobacco use disorder Encounter for routine adult health examination with abnormal findings Other specified anxiety disorders documented in this encounter Care Teams Order Processing Clerk Relationship Specialty Start Date End Date Gadiel Majano MD [address] [place] [address] [place] [phone] PCP - General 02/25/07 documented as of this encounter
--- OUTSIDE RECORDS SUMMARY | 2024-05-11 14:56 | XMS_ITS | Encounter Summary ---
Author Organization [employer] Address [address] [place] [address] Care Team Providers Care Finish Mixer Name Role Phone Gadiel Majano MD Primary Care Provider [phone] Encounter Details Date Type Department Care Team (Late st Contact Info) Description 11/23/2023 External Device Data STL ABSTRACTION Provider, Abstract [...] st Contact Info) Description 05/19/2024 9:00 AM EMBEDDED SOFTWARE MANAGER Appointment [facility] Support Services [address] [place] [address] Gadiel Majano MD [address] [place] [address] 06/05/2024 8:30 AM EMBEDDED SOFTWARE MANAGER Appointment [facility] MRI [address] [place] [address] Gadiel Majano MD [address] [place] [address] 08/09/2024 4:00 PM CDT Office Visit [facility] [address] [place] [address] [address] [place] [address] Jairo Matute PA [address] [place] [address] [address] [place] [address] 01/23/2025 3:20 PM CDT Office Visit [address] [place] [address] Gadiel Majano MD [address] [place] [address] [address] [place] [address] 08/03/2025 8:30 AM CDT Office Visit [facility] NEUROLOGY - [facility] [address] [facility] [address] [place] [address] Aliza Lion MD [address] [facility] [address] [place] [address] documented as of this encounter Visit Diagnoses Not on filedocumented in this encounter Care Teams Finish Mixer Relationship Specialty Start Date End Date Gadiel Majano MD [address] [place] [address] [address] [place] [address] PCP - General 02/25/07 documented as of this encounter
--- OUTSIDE RECORDS SUMMARY | 2024-05-11 14:56 | XMS_ITS | Encounter Summary ---
Author Organization [facility] Address [address] [place] [address] Care Team Providers Care Home Support Worker Name Role Phone Gadiel Majano MD Primary Care Provider [phone] Encounter Details Date Type Department Care Team (Late st Contact Info) Description 08/17/2023 External Device Data STL ABSTRACTION Provider, Abstract [...] st Contact Info) Description 05/19/2024 9:00 AM RETAIL CUSTODIAL ASSOCIATE Appointment [facility] Support Services EEG [address] [place] [address] Gadiel Majano MD [address] [place] [address] 06/05/2024 8:30 AM RETAIL CUSTODIAL ASSOCIATE Appointment [facility] MRI [address] [place] [address] Gadiel Majano MD [address] [place] [address] 08/09/2024 4:00 PM CDT Office Visit [facility] [address] [place] [address] [address] [place] [address] Jairo Matute PA [address] [place] [address] [address] [place] [address] 01/23/2025 3:20 PM CDT Office Visit [address] [place] [address] Gadiel Majano MD [address] [place] [address] [address] [place] [address] 08/03/2025 8:30 AM CDT Office Visit [facility] NEUROLOGY - [facility] 5003B [address] [facility] [address] [place] [address] Aliza Lion MD [address] [facility] [address] [place] [address] documented as of this encounter Visit Diagnoses Not on filedocumented in this encounter Care Teams Home Support Worker Relationship Specialty Start Date End Date Gadiel Majano MD [address] [place] [address] [address] [place] [address] PCP - General 02/25/07 documented as of this encounter
--- OUTSIDE RECORDS SUMMARY | 2024-05-11 14:56 | XMS_ITS | Encounter Summary ---
Author Organization [facility] Address [address] [place] [address] Care Team Providers Care Finishing Range Operator Name Role Phone Gadiel Majano MD Primary Care Provider [phone] Encounter Details Date Type Department Care Team [...] st Contact Info) Description 05/19/2024 9:00 AM AGRICULTURAL ECONOMICS TEACHER Appointment [facility] Support Services EEG [address] [place] [address] Gadiel Majano MD [address] [place] [phone] 06/05/2024 8:30 AM AGRICULTURAL ECONOMICS TEACHER Appointment [facility] MRI [address] [place] [address] Gadiel Majano MD [address] [place] [phone] 08/09/2024 4:00 PM CDT Office Visit [facility] [address] [place] [address] [address] [place] [address] Jairo Matute PA [address] [place] [address] [address] [place] [phone] 01/23/2025 3:20 PM CDT Office Visit [address] [place] [address] Gadiel Majano MD [address] [place] [address] [address] [place] [address] 08/03/2025 8:30 AM CDT Office Visit [facility] NEUROLOGY - [facility] 5003B [address] [facility] [address] [place] [address] Aliza Lion MD [address] [facility] [address] [place] [address] documented as of this encounter Visit Diagnoses Not on filedocumented in this encounter Care Teams Finishing Range Operator Relationship Specialty Start Date End Date Gadiel Majano MD [address] [place] [address] [address] [place] [address] PCP - General 02/25/07 documented as of this encounter
--- OUTSIDE RECORDS SUMMARY | 2024-05-11 14:56 | XMS_ITS | Encounter Summary ---
Author Organization [facility] Address [address] [place] [address] Care Team Providers Care Bulk Sausage Casing Tier Off Name Role Phone Gadiel Majano MD Primary Care Provider [phone] Encounter Details Date Type Department Care Team (Late Contact Info) Description 10/04/2017 Orders Only [facility] Internal Medicine [address] [address] Gadiel Majano MD [address] [place] [phone] Routine general medical examination at a health care facility Social History Tobacco Use Types Packs/Day Years [...] st Contact Info) Description 05/19/2024 9:00 AM FERRY CAPTAIN Appointment [facility] [address] [place] [address] Gadiel Majano MD [address] [place] [phone] 06/05/2024 8:30 AM FERRY CAPTAIN Appointment [facility] [address] [place] [address] [facility] [place] [phone] Gadiel Majano MD [address] [place] [address] [address] [place] [address] 08/09/2024 4:00 PM CDT Office Visit [facility] Primary Care [address] [place] [address] Jairo Matute PA [address] [place] [address] [address] [place] [address] 01/23/2025 3:20 PM CDT Office Visit [facility] Care [address] [place] [address] Gadiel Majano MD [address] [place] [address] [address] [place] [address] 08/03/2025 8:30 AM CDT Office Visit [facility] NEUROLOG[facility] - [facility] [address] [facility] [address] [place] [address] Aliza Lion MD [address] [facility] [address] [place] [address] documented as of this encounter Procedures Procedure Name Priority Date/Time Associated Diagnosis Comments COMPREHENSIVE METABOLIC PANEL Routine 10/01/2017 documented in this encounter Results * COMPREHENSIVE METABOLIC PANEL (10/01/2017) SODIUM 141 135 - 145 mmol/L EXTERNAL LAB POTASSIUM 4.0 3.3 - 4.9 mmol/L EXTERNAL LAB CHLORIDE 96 - 108 mmol/L EXTERNAL LAB CO2 22 - 30 mmol/L EXTERNAL LAB CALCIUM 9.6 8.5 - 10.3 mmol/L EXTERNAL LAB BUN 6 - 20 mg/dL EXTERNAL LAB CREATININE 0.74 0.60 - 1.10 mg/dL EXTERNAL LAB GLUCOSE 81 70 - 199 mg/dL EXTERNAL LAB TOTAL PROTEIN 6.3 - 8.6 g/dL EXTERNAL LAB ALBUMIN 3.4 - 4.8 g/dL EXTERNAL LAB BILIRUBIN TOTAL mg/dL EXTERNAL LAB ALKALINE PHOSPHATASE 35 - 104 U/L EXTERNAL LAB AST 16 10 - 45 U/L EXTERNAL LAB ALT 12 7 - 45 U/L EXTERNAL LAB GFR, 60 mL/min/1.7 3 sq meter EXTERNAL LAB GFR 60 mL/min/1.7 3 sq meter EXTERNAL LAB ANION GAP mmol/L EXTERNAL LAB Blood Abstract Provider CHEMISTRY ORDERABLES EXTERNAL LAB documented in this encounter Visit Diagnoses Diagnosis Routine general medical examination at a health care facility documented in this encounter Care Teams Bulk Sausage Casing Tier Off Relationship Specialty Start Date End Date Gadiel Majano MD [address] [place] [phone] PCP - General 02/25/07 documented as of this encounter
--- OUTSIDE RECORDS SUMMARY | 2024-05-11 14:56 | XMS_ITS | Encounter Summary ---
Author Organization [facility] Address [address] [place] [address] Care Team Providers Care Inner Layer Scrubber Tender Name Role Phone Gadiel Majano MD Primary Care Provider Encounter Details Date Type Department Care Team (Late Contact Info) Description 06/28/2019 Abstract [facility] Internal Medicine [address] [address] Gadiel Majano MD [address] [place] [phone] Social History Tobacco Use Types Packs/Day [...] st Contact Info) Description 05/19/2024 9:00 AM PRINCIPAL GIFTS OFFICER Appointment [facility] [address] [place] [address] [place] [address] Gadiel Majano MD [address] [place] [phone] 06/05/2024 8:30 AM PRINCIPAL GIFTS OFFICER Appointment [facility] [address] [place] [address] [place] [facility] [place] [address] Gadiel Majano MD [address] [place] [address] [address] [place] [address] 08/09/2024 4:00 PM CDT Office Visit [facility] [address] [place] [address] [address] [place] [address] Jairo Matute, LISA [address] [place] [address] [address] [place] [address] 01/23/2025 3:20 PM CDT Office Visit [address] [place] [address] Gadiel Majano MD [address] [place] [address] [address] [place] [address] 08/03/2025 8:30 AM CDT Office Visit [facility] NEUROLOG[facility] - [place] [facility] [address] [facility] [address] [place] [address] Aliza Lion MD [address] [facility] [address] [place] [address] documented as of this encounter Visit Diagnoses Not on filedocumented in this encounter Care Teams Inner Layer Scrubber Tender Relationship Specialty Start Date End Date Gadiel Majano MD [address] [place] [address] [address] [place] [address] PCP - General 02/25/07 documented as of this encounter
--- OUTSIDE RECORDS SUMMARY | 2024-05-11 14:56 | XMS_ITS | Encounter Summary ---
Author Organization [facility] Address [address] [place] [address] Care Team Providers Care Forms Analyst Name Role Phone Gadiel Majano MD Primary Care Provider [phone] Encounter Details Date Type Department Care Team [...] st Contact Info) Description 05/19/2024 9:00 AM MECHANIC SENIOR Appointment [facility] Support Services [address] [place] [address] [place] [address] Gadiel Majano MD [address] [place] [phone] 06/05/2024 8:30 AM MECHANIC SENIOR Appointment [facility] [address] [place] [address] [place] [address] Gadiel Majano MD [address] [place] [phone] 08/09/2024 4:00 PM CDT Office Visit [facility] [address] [place] [address] [address] [place] [address] Jairo Matute PA [address] [place] [address] [address] [place] [phone] 01/23/2025 3:20 PM CDT Office Visit [address] [place] [address] Gadiel Majano MD [address] [place] [address] [address] [place] [address] 08/03/2025 8:30 AM CDT Office Visit [facility] - [facility] [address] [facility] [address] [place] [address] Aliza Lion MD [address] [facility] [address] [place] [address] documented as of this encounter Visit Diagnoses Not on filedocumented in this encounter Care Teams Forms Analyst Relationship Specialty Start Date End Date Gadiel Majano MD [address] [place] [address] [address] [place] [address] PCP - General 02/25/07 documented as of this encounter
--- OUTSIDE RECORDS SUMMARY | 2024-05-11 14:56 | XMS_ITS | Encounter Summary ---
Author Organization [facility] Address [address] [place] [address] Care Team Providers Care Bottler Helper Name Role Phone Gadiel Majano MD Primary Care Provider [phone] Encounter Details Date Type Department Care Team (Late st Contact Info) Description 05/05/2023 External Device Data STL ABSTRACTION Provider, Abstract [...] st Contact Info) Description 05/19/2024 9:00 AM BRICKMASON APPRENTICE Appointment [facility] Support Services [address] [place] [address] [place] [address] Gadiel Majano MD [address] [place] [phone] 06/05/2024 8:30 AM BRICKMASON APPRENTICE Appointment [facility] [address] [place] [address] [place] [address] Gadiel Majano MD [address] [place] [phone] 08/09/2024 4:00 PM CDT Office Visit [facility] [address] [place] [address] [address] [place] [address] Jairo Matute PA [address] [place] [address] [address] [place] [phone] 01/23/2025 3:20 PM CDT Office Visit [address] [place] [address] Gadiel Majano MD [address] [place] [address] [address] [place] [address] 08/03/2025 8:30 AM CDT Office Visit [facility] NEUROLOG[facility] - [facility] [address]003B [address] [facility] [address] [place] [address] Aliza Lion MD [address] [facility] [address] [place] [address] documented as of this encounter Visit Diagnoses Not on filedocumented in this encounter Care Teams Bottler Helper Relationship Specialty Start Date End Date Gadiel Majano MD [address] [place] [address] [address] [place] [address] PCP - General 02/25/07 documented as of this encounter
--- OUTSIDE RECORDS SUMMARY | 2024-05-11 14:56 | XMS_ITS | Encounter Summary ---
Author Organization [facility] Address [address] [place] [address] Care Team Providers Care Pelletising Extruder Operator Name Role Phone Gadiel Majano MD Primary Care Provider [phone] Encounter Details Date Type Department Care Team (Late st Contact Info) Description 12/07/2023 External Device Data STL ABSTRACTION Provider, Abstract [...] st Contact Info) Description 05/19/2024 9:00 AM MANAGER APPLICATION Appointment [facility] Support Services [address] [place] [address] [place] [address] Gadiel Majano MD [address] [place] [phone] 06/05/2024 8:30 AM MANAGER APPLICATION Appointment [facility] MRI [address] [place] [address] [place] [address] Gadiel Majano MD [address] [place] [phone] 08/09/2024 4:00 PM CDT Office Visit [facility] [address] [place] [address] [address] [place] [address] Jairo Matute PA [address] [place] [address] [address] [place] [phone] 01/23/2025 3:20 PM CDT Office Visit [address] [place] [address] Gadiel Majano MD [address] [place] [address] [address] [place] [address] 08/03/2025 8:30 AM CDT Office Visit [facility]UROLOG[facility] - [facility] [address] [facility] [address] [place] [address] Aliza Lion MD [address] [facility] [address] [place] [address] documented as of this encounter Visit Diagnoses Not on filedocumented in this encounter Care Teams Pelletising Extruder Operator Relationship Specialty Start Date End Date Gadiel Majano MD [address] [place] [address] [address] [place] [address] PCP - General 02/25/07 documented as of this encounter
--- OUTSIDE RECORDS SUMMARY | 2024-05-11 14:56 | XMS_ITS | Encounter Summary ---
Author Organization [facility] Address [address] [place] [address] Care Team Providers Care Solo Truck Driver Name Role Phone Gadiel Majano MD Primary Care Provider Reason for Referral * Radiology Services (Routine) - Closed Specialty Diagnoses / Procedures Referred By Contac t Referred To Contact Radiology Diagnoses Enlarged lymph node Procedures US HEAD NECK TISSUES Gadiel Majano MD [address] [place] [address] [address] [place] [address] [facility] Ultrasound [address] [place] [address] Referral ID Status Reason Start Date Expiration Date Visits Re quested Visits Authorized [id number] Closed 01/06/2023 02/06/2024 1 1 Reason for Visit * Reason Comments Neck Pain Lymph node enlarged Encounter Details Date Type Department Care Team (Late st Contact Info) Description 01/06/2023 3:40 PM CDT Office Visit [facility] [address] [address] [place] [address] Gadiel Majano MD [address] [place] [address] [place] [address] [place] [address] Enlarged lymph node (Primary Dx); Recurrent UTI; Encounter for routine adult health examination with abnormal findings; Need for Tdap vaccination Social History Tobacco Use Types Packs/Day Years Used Date Smoking Tobacco: Former Cigarettes 0.5 4 0 05/24/2018 - 05/24/2022 Passive Smoke Exposure: Past Smokeless Tobacco: Never Tobacco Cessation:Counseling Given: Not Answered Alcohol Use Standard Drinks/Week Comments Yes 2 (1 standard drink = 0.6 oz pur e alcohol) SOCIALLY Sex and Gender Information Value Date Recorded Sex Assigned at Not on file Gender Identity Not on file Sexual Orientation Not on file documented as of this encounter Last Filed Vital Signs Vital Sign Reading Time Taken Comments Blood Pressure 108/68 01/06/2023 3:59 PM CDT Pulse 74 01/06/2023 3:59 PM CDT Temperature - - Respiratory Rate 14 01/06/2023 3:59 PM CDT Oxygen Saturation 98% 01/06/2023 3:59 PM CDT Inhaled Oxygen Concentration - - Weight 85.3 kg (188 lb) 01/06/2023 3:59 PM CDT Height 165.1 cm (5' 5 ) 01/06/2023 3:59 PM CDT Body Mass Index 31.28 01/06/2023 3:59 PM CDT documented in this encounter Progress Notes * Gadiel Majano MD - 01/06/2023 3:51 PM CDT Hpi Off cig Anxiety still issue does not want med Qu ln post occiptal area per chiropractor Patient Active Problem List Diagnosis Code Backache, unspecified M54.9 Hypoglycemia E16.2 Nausea alone R11.0 Recurrent UTI N39.0 Mirena 12/11/13 Z97.5 Tobacco use Z72.0 Numbness and tingling in left hand R20.0, R20.2 Contusion of left elbow S50.02XA Medial epicondylitis of left elbow M77.02 Other specified anxiety disorders F41.8 BP 108/68 Pulse 74 Resp 14 Ht 5' 5 (1.651 m) Wt 85.3 kg (188 lb) LMP (LMP Unknown) SpO2 98% BMI 31.28 kg/m?? General appearance: over wt nad Head: [...] Mood stable ASSESSMENT: Encounter Diagnoses Name Primary? Enlarged lymph node Yes Recurrent UTI Encounter for routine adult health examination with abnormal findings Need for Tdap vaccination Ln issue Try avoid ct Check us Ent if any concerns Rec uti has been stable check ua Anxiety pros cons meds discussed Normal BMI Range: 18 & older: > or = 18.5 and < 25 Body mass index is 31.28 kg/m??. Abnormal high BMI: Patient counseled on lifestyle modifications including weight loss and daily exercise. TOBACCO COUNSELING She is not a tobacco/nicotine user. Depression Screen Positive: PHQ-2 score >= 3 or PHQ-9 score >= 9 PHQ-2 Total: 0 (01/06/2023 3:54 PM) PHQ-9 Total: 1 (01/06/2023 3:54 PM) DEPRESSION PLAN OF CARE Her depression screen was negative. Health Maintenance Topic Date Due HEPATITIS B VACCINES (1 of 3 - 3-dose series) Never done PNEUMOCOCCAL VACCINE 0-64 YEARS (1 - PCV) Never done CERVICAL CANCER SCREENING 11/03/2020 INFLUENZA VACCINE (1) 12/22/2022 DTAP/TDAP/TD VACCINES (3 - Td or Tdap) 01/06/2033 HPV VACCINES Completed Preventative Visit- Commercial Completed Flu vac advised Tdap PLAN: Orders Placed This Encounter US HEAD NECK TISSUES TDAP VACCINE >7 YO IM (ADULT) CBC WITH DIFFERENTIAL (Favorites) COMPREHENSIVE METABOLIC PANEL (Favorites) LIPID PANEL (Favorites) TSH (Favorites) URINALYSIS WITH REFLEX CULTURE VITAMIN B12 LEVEL (Chemistry) documented in this encounter Plan of Treatment Upcoming Encounters Date Type Department Care Team (Late st Contact Info) Description 05/19/2024 9:00 AM PRESSURISED CONTAINER FILLER Appointment [facility] EEG S [facility] [address] [phone] Gadiel Majano MD [address] [place] [address] 06/05/2024 8:30 AM PRESSURISED CONTAINER FILLER Appointment [facility] S [facility] [address] [place] [address] Gadiel Majano MD [address] [place] [address] 08/09/2024 4:00 PM CDT Office Visit [place] [phone] Jairo Matute, LISA [address] [place], [place] [address] [place] [address] 01/23/2025 3:20 PM CDT Office Visit [address] [address] Gadiel Majano MD [address] [place] [address] 08/03/2025 8:30 AM CDT Office Visit [facility] NEUROLOGY - [place] [facility] - [facility] [address] [facility] [address] [place] [address] Aliza Lion MD [address] [facility] [address] [place] [address] documented as of this encounter Procedures Procedure Name Priority Date/Time Associated Diagnosis Comments CBC WITH DIFFERENTIAL Routine 01/27/2023 6:19 AM CDT Encounter for routine adult health examination with abnormal findings TSH Routine 01/27/2023 6:19 AM CDT Encounter for routine adult health examination with abnormal findings VITAMIN B12 LEVEL Routine 01/27/2023 6:1 9 AM CDT Enlarged lymph node LIPID PANEL Routine 01/27/2023 6:19 AM CDT Encounter for routine adult health examination with abnormal findings COMPREHENSIVE METABOLIC PANEL Routine 01/27/2023 6:19 AM CDT Encounter for routine adult health examination with abnormal findings URINALYSIS WITH REFLEX CULTURE Routine 01/21/2023 4:27 PM CDT Recurrent UTI documented in this encounter Results * VITAMIN B12 LEVEL (01/27/2023 6:19 AM CDT) VITAMIN B12 355 200 - 1100 pg/mL [facility] Comment: Please Note: Although the reference range for vitamin B12 is 200-1100 pg/mL, it has been reported that between 5 and 10% of patients with values between 200 and 400 pg/mL may experience neuropsychiatric and hematologic abnormalities due to occult B12 deficiency; less than 1% of patients with values above 400 pg/mL will have symptoms. FASTING:YES FASTING: YES Test Performed at: [facility] [address] [place], [place] ??[address] Natali Adler MD Blood 01/27/2023 6:19 AM CDT 01/27/2023 6:19 AM CDT Gadiel Majano MD CHEMISTRY ORDERABLES [facility] [phone] [facility] [address] [place] [address] * TSH (01/27/2023 6:19 AM CDT) Pathologist [facility] TSH 1.46 mIU/L [facility] Comment: ?Reference Range ?> or = 20 Years ??0.40-4.50 ? Ranges ?First trimester ?0.26-2.66 ?Second trimester ?? 0.55-2.73 ?Third trimester ?0.43-2.91 FASTING:YES FASTING: YES Test Performed at: [facility] ??[address] Natali Adler MD Blood 01/27/2023 6:19 AM CDT 01/27/2023 6:19 AM CDT Gadiel Majano MD CHEMISTRY ORDERABLES [facility] [phone] [address] * LIPID PANEL (01/27/2023 6:19 AM CDT) Pathologist [facility] CHOLESTEROL 178 <200 mg/dL [facility] HDL 67 > OR = 50 mg/dL [facility] TRIGLYCERIDE 77 <150 mg/dL [facility] LDL CALCULATED 94 mg/dL (calc) [facility] Comment: Reference range: <100 Desirable range <100 mg/dL for primary prevention; ?? <70 mg/dL for patients with CHD or diabetic patients with > or = 2 CHD risk factors. LDL-C is now calculated using the Mae calculation, which is a validated novel method providing better accuracy than the Friedewald equation in the estimation of LDL-C. Pasquale LIPSCOMB et al. SUSI. 2013;310(19): 4315-4666 (http://education.Excelimmune/faq/ELQ813) CHOL/HDL RATIO 2.7 <5.0 (calc) [facility] TOTAL NON-HDL CHOL(LDL+VLDL) 111 <130 mg/dL (calc) [facility] Comment: For patients with diabetes plus 1 major ASCVD risk factor, treating to a non-HDL-C goal of <100 mg/dL (LDL-C of <70 mg/dL) is considered a therapeutic option. FASTING:YES FASTING: YES Test Performed at: [facility] ??[address] Natali Adler MD Blood 01/27/2023 6:19 AM CDT 01/27/2023 6:19 AM CDT Gadiel Majano MD CHEMISTRY ORDERABLES [facility] [phone] [facility] [address] * COMPREHENSIVE METABOLIC PANEL (01/27/2023 6:19 AM CDT) GLUCOSE 89 65 - 99 mg/dL [facility] Comment: ? Fasting reference interval BUN 13 7 - 25 mg/dL [facility] CREATININE 0.69 0.50 - 0.97 mg/dL [facility] GFR 118 > OR = 60 mL/min/1. 73m2 [facility] BUN/CREAT RATIO SEE NOTE: (calc) [facility] Comment: ?? Not Reported: BUN and Creatinine are within ?? reference range. ? SODIUM 138 135 - 146 mmol/L [facility] POTASSIUM 4.4 3.5 - 5.3 mmol/L [facility] CHLORIDE 106 98 - 110 mmol/L [facility] CO2 24 20 - 32 mmol/L [facility] CALCIUM 9.3 8.6 - 10.2 mg/dL [facility] TOTAL PROTEIN 6.6 6.1 - 8.1 g/dL [facility] ALBUMIN 4.1 3.6 - 5.1 g/dL [facility] GLOBULIN 2.5 1.9 - 3.7 g/dL (calc) [facility] ALBUMIN/GLOBULIN RATIO 1.6 1.0 - 2.5 (calc) [facility] BILIRUBIN TOTAL 0.5 0.2 - 1.2 mg/dL [facility] ALKALINE PHOSPHATASE 57 31 - 125 U/L [facility] AST 15 10 - 30 U/L [facility] ALT 19 6 - 29 U/L [facility] Comment: FASTING:YES FASTING: YES Test Performed at: [facility] ??[phone] Natali Adler MD Blood 01/27/2023 6:19 AM CDT 01/27/2023 6:19 AM CDT Gadiel Majano MD CHEMISTRY ORDERABLES [facility] [phone] [facility] [address] * CBC WITH DIFFERENTIAL (01/27/2023 6:19 AM CDT) WBC 7.6 3.8 - 10.8 Thousand/u L [facility] RBC 4.28 3.80 - 5.10 Million/uL [facility] HEMOGLOBIN 13.7 11.7 - 15.5 g/dL [facility] HEMATOCRIT 39.5 35.0 - 45.0 % [facility] MCV 92.3 80.0 - 100.0 fL [facility] MCH 32.0 27.0 - 33.0 pg [facility] MCHC 34.7 32.0 - 36.0 g/dL [facility] RDW 11.7 11.0 - 15.0 % [facility] PLATELETS 262 140 - 400 Thousand/u L [facility] MPV 11.0 7.5 - 12.5 fL [facility] NEUTROPHIL ABSOLUTE 4,416 1,500 - 7,800 cells/uL [facility] LYMPHOCYTE ABSOLUTE 2,462 850 - 3,900 cells/uL [facility] MONOCYTE ABSOLUTE 593 200 - 950 cells/uL [facility] EOSINOPHIL ABSOLUTE 99 15 - 500 cells/uL [facility] BASOPHILS ABSOLUTE 30 0 - 200 cells/uL [facility] NEUTROPHIL 58.1 % [facility] LYMPHOCYTES 32.4 % [facility] MONOCYTE 7.8 % [facility] EOSINOPHILS 1.3 % [facility] BASOPHILS 0.4 % [facility] Comment: FASTING:YES FASTING: YES Test Performed at: [facility] [address] [place], [place] ??[address] Natali Adler MD Blood 01/27/2023 6:19 AM CDT 01/27/2023 6:19 AM CDT Gadiel Majano MD HEMATOLOGY ORDERABLE S [facility] [phone] [facility] [address] * US HEAD NECK TISSUES (01/21/2023 4:31 PM CDT) Anatomical Region Laterality Modality Head Ultrasound 01/21/2023 4:35 PM CDT Impressions 01/22/2023 1:12 PM CDT IMPRESSION: Small subcutaneous lymph nodes in the right posterior and lateral neck with normal sonographic morphology. DICTATION LOCATION: Location - [facility] ?? Narrative 01/22/2023 1:12 PM CDT ULTRASOUND [...] normal sonographic morphology. DICTATION LOCATION: Location 1 [facility] Gadiel Majano MD US ORDERABLES * URINALYSIS WITH REFLEX CULTURE (01/21/2023 4:27 PM CDT) COLOR UA YELLOW YELLOW [facility] CLARITY UA CLEAR CLEAR [facility] SPECIFIC GRAVITY UA 1.013 1.001 - 1.035 [facility] PH UA 6.0 5.0 - 8.0 [facility] GLUCOSE UA NEGATIVE NEGATIVE [facility] BILIRUBIN UA NEGATIVE NEGATIVE [facility] KETONES UA NEGATIVE NEGATIVE [facility] BLOOD UA NEGATIVE NEGATIVE [facility] PROTEIN UA NEGATIVE NEGATIVE [facility] NITRITE UA NEGATIVE NEGATIVE [facility] LEUKOCYTE ESTERASE UA NEGATIVE NEGATIVE [facility] WBC UA NONE SEEN < OR = 5 /HPF [facility] RBC UA NONE SEEN < OR = 2 /HPF [facility] EPITHELIAL CELLS, URINE NONE SEEN < OR = 5 /HPF [facility] BACTERIA UA NONE SEEN NONE SEEN /HPF [facility] HYALINE CAST NONE SEEN NONE SEEN /LPF [facility] URINE NOTE [facility] Comment: This urine was analyzed for the presence of WBC, RBC, bacteria, casts, and other formed elements. Only those elements seen were reported. URINE CULTURE [facility] Comment: NO CULTURE INDICATED Test Performed at: [place] [address] [address] [place] ??[phone] Natali Adler Urine URINE SPECIMEN OBTAINED BY CLEAN CATCH PROCEDURE / Unknown 01/21/2023 4:27 PM CDT 01/21/2023 4:27 PM CDT Gadiel Majano MD URINE ORDERABLES [facility] [phone] [place] [address] [place] [address] documented in this encounter Visit Diagnoses Diagnosis Enlarged lymph node- Primary Enlargement of lymph nodes Recurrent UTI Urinary tract infection, site not specified Encounter for routine adult health examination with abnormal findings Need for Tdap vaccination Need for prophylactic vaccination with combined yujtwppraj-baqunje-dnkhqwhsx (DTP) vaccine Enlarged lymph node Enlargement of lymph nodes documented in this encounter Care Teams Solo Truck Driver Relationship Specialty Start Date End Date Gadiel Majano MD [address] [place] [address] PCP - General 02/25/07 documented as of this encounter
--- OUTSIDE RECORDS SUMMARY | 2024-05-11 14:56 | XMS_ITS | Encounter Summary ---
Author Organization [facility] Address [address] [place] [address] Care Team Providers Care Remedial Project Manager Name Role Phone Gadiel Majano MD Primary Care Provider [phone] Encounter Details Date Type Department Care Team (Late st Contact Info) Description 01/18/2024 External Device Data STL ABSTRACTION Provider, Abstract [...] st Contact Info) Description 05/19/2024 9:00 AM COACH OPERATOR Appointment [facility] Support Services [place] [address] [place] [address] [place] [address] Gadiel Majano MD [address] [place] [address] 06/05/2024 8:30 AM COACH OPERATOR Appointment [facility] MRI [address] [place] [address] [place] [address] Gadiel Majano MD [address] [place] [address] 08/09/2024 4:00 PM CDT Office Visit [facility] [address] [place] [address] [address] [place] [address] Jairo Matute PA [address] [place] [address] [address] [place] [phone] 01/23/2025 3:20 PM CDT Office Visit [address] [place] [address] Gadiel Majano MD [address] [place] [address] [address] [place] [address] 08/03/2025 8:30 AM CDT Office Visit [facility] NEUROLOGY - [facility] [address] [facility] [address] [place] [address] Aliza Lion MD [address] [facility] [address] [place] [address] documented as of this encounter Visit Diagnoses Not on filedocumented in this encounter Care Teams Remedial Project Manager Relationship Specialty Start Date End Date Gadiel Majano MD [address] [place] [address] [address] [place] [address] PCP - General 02/25/07 documented as of this encounter
--- OUTSIDE RECORDS SUMMARY | 2024-05-11 14:56 | XMS_ITS | Encounter Summary ---
Author Organization [facility] Address [address] [place] [address] Care Team Providers Care Beam Worker Name Role Phone Gadiel Majano MD Primary Care Provider [phone] Encounter Details Date Type Department Care Team (Late st Contact Info) Description 06/23/2023 External Device Data STL ABSTRACTION Provider, Abstract [...] st Contact Info) Description 05/19/2024 9:00 AM ASSEMBLER SANDAL PARTS Appointment [facility] Support Services EEG [address] [place] [address] [place] [address] Gadiel Majano MD [address] [place] [address] 06/05/2024 8:30 AM ASSEMBLER SANDAL PARTS Appointment [facility] MRI [address] [place] [address] [place] [address] Gadiel Majano MD [address] [place] [address] 08/09/2024 4:00 PM CDT Office Visit [facility] [address] [place] [address] [address] [place] [address] Jairo Matute PA [address] [place] [address] [address] [place] [phone] 01/23/2025 3:20 PM CDT Office Visit [address] [place] [address] Gadiel Majano MD [address] [place] [address] [address] [place] [address] 08/03/2025 8:30 AM CDT Office Visit [facility] NEUROLOGY - [facility] [address] [facility] [address] [place] [address] Aliza Lion MD [address] [facility] [address] [place] [address] documented as of this encounter Visit Diagnoses Not on filedocumented in this encounter Care Teams Beam Worker Relationship Specialty Start Date End Date Gadiel Majano MD [address] [place] [address] [address] [place] [address] PCP - General 02/25/07 documented as of this encounter
--- OUTSIDE RECORDS SUMMARY | 2024-05-11 14:56 | XMS_ITS | Encounter Summary ---
Author Organization [facility] Address [address] [place] [address] Care Team Providers Care Plaster Helper Name Role Phone Gadiel Majano MD Primary Care Provider [phone] Reason for Visit * Reason Onset Date Comments Needs Orders Written 09/30/2017 lab Encounter Details Date Type Department Care Team (Late st Contact Info) Description 09/30/2017 Telephone [facility] Internal Medicine [address] [address] Gadiel Majano MD [address] [place] [address] Needs Orders Written (lab) Social History Tobacco Use Types Packs/Day Years [...] encounter Miscellaneous Notes * Telephone Encounter - Nciol Bryson - 09/30/2017 10:20 AM CDT Pt lost lab orders. Would like them faxed to her. Lab orders faxed to pt. She will be going to [facility]. documented in this encounter Plan of Treatment Upcoming Encounters Date Type Department Care Team (Late st Contact Info) Description 05/19/2024 9:00 AM MANAGER OF PURCHASING Appointment [facility] EEG S [facility] [address] [place] [address] Gadiel Majano MD [address] [place] [address] [place] [address] 06/05/2024 8:30 AM MANAGER OF PURCHASING Appointment [facility] S [facility] [address] [place] [address] Gadiel Majano MD [address] [place] [address] 08/09/2024 4:00 PM CDT Office Visit [facility] Care [address], [place] [address] Jairo Matute PA [address] [place] [address] [address] [place] [address] 01/23/2025 3:20 PM CDT Office Visit [address] [place] [address] Gadiel Majano MD [address] [place] [address] 08/03/2025 8:30 AM CDT Office Visit [facility] NEUROLOGY - [place] [address] [facility] [address] [place] [address] Aliza Lion MD [address] [facility] [address] [place] [address] documented as of this encounter Visit Diagnoses Not on filedocumented in this encounter Care Teams Plaster Helper Relationship Specialty Start Date End Date Gadiel Majano MD [address] [place] [address] PCP - General 02/25/07 documented as of this encounter
--- OUTSIDE RECORDS SUMMARY | 2024-05-11 14:56 | XMS_ITS | Encounter Summary ---
Author Organization [facility] Address [address] [place] [address] Care Team Providers Care Wood Room Supervisor Name Role Phone Gadiel Majano MD Primary Care Provider [phone] Encounter Details Date Type Department Care Team (Late st Contact Info) Description 06/20/2023 External Device Data STL ABSTRACTION Provider, Abstract [...] st Contact Info) Description 05/19/2024 9:00 AM PROJECTION TECHNICIAN Appointment [facility] Support Services EEG [address] [place] [address] [place] [address] Gadiel Majano MD [address] [place] [address] 06/05/2024 8:30 AM PROJECTION TECHNICIAN Appointment [facility] MRI [address] [place] [address] [place] [address] Gadiel Majano MD [address] [place] [address] 08/09/2024 4:00 PM CDT Office Visit [facility] [address] [place] [address] [address] [place] [address] Jairo Matute PA [address] [place] [address] [address] [place] [phone] 01/23/2025 3:20 PM CDT Office Visit [address] [place] [address] Gadiel Majano MD [address] [place] [address] [address] [place] [address] 08/03/2025 8:30 AM CDT Office Visit [facility] NEUROLOGY - [facility] [address] [facility] [address] [place] [address] Aliza Lion MD [address] [facility] [address] [place] [address] documented as of this encounter Visit Diagnoses Not on filedocumented in this encounter Care Teams Wood Room Supervisor Relationship Specialty Start Date End Date Gadiel Majano MD [address] [place] [address] [address] [place] [address] PCP - General 02/25/07 documented as of this encounter
--- OUTSIDE RECORDS SUMMARY | 2024-05-11 14:56 | XMS_ITS | Encounter Summary ---
Author Organization [facility] Address [address] [facility] Attn: [place] [address] Care Team Providers Care Raschel Knitting Machine Operator Name Role Phone Gadiel Majano MD Primary Care Provider [phone] Encounter Details Date Type Department Care Team (Latest Contact Info) Description 02/10/2022 Travel Social History Tobacco Use Types Packs/Day [...] AM CDT documented as of this encounter Plan of Treatment Upcoming Encounters Date Type Department Care Team (Late st Contact Info) Description 05/19/2024 9:00 AM MASTER ESTHETICIAN Appointment [facility] Support Services [facility] [place] [address] [place] [address] Gadiel Majano MD [address] [place] [address] 06/05/2024 8:30 AM MASTER ESTHETICIAN Appointment [facility] [place] [address] [place] [address] Gadiel Majano MD [address] [place] [address] [address] [place] [address] 08/09/2024 4:00 PM CDT Office Visit [facility] [address] [place] [address] [address] [place] [phone] Jairo Matute, LISA [address] [place] [address] [address] [place] [address] 01/23/2025 3:20 PM CDT Office Visit [address] [place] [address] Gadiel Majano MD [address] [place] [address] [address] [place] [address] 08/03/2025 8:30 AM CDT Office Visit [facility] [place] [facility] [address] [facility] [address] [place] [address] Aliza Lion MD [address] [facility] [address] [place] [address] documented as of this encounter Visit Diagnoses Not on filedocumented in this encounter Care Teams Raschel Knitting Machine Operator Relationship Specialty Start Date End Date Gadiel Majano MD [address] [place] [address] [address] [place] [address] PCP - General 02/25/07 documented as of this encounter
--- OUTSIDE RECORDS SUMMARY | 2024-05-11 14:56 | XMS_ITS | Encounter Summary ---
Author Organization [facility] Address [address] [place] [address] Care Team Providers Care Motor And Controls Tester Name Role Phone Gadiel Majano MD Primary Care Provider [phone] Reason for Visit * Reason Comments Well Woman Exam previous pap: 7 - wnl; not having periods, but has some sporadic spotting and is have increased cramping, concerned her Mirena is running out of hormones, not so much for bc more on the helping the sxs side h/o irregular bleeding and severe cramping Encounter Details Date Type Department Care Team (Late st Contact Info) Description 11/03/2017 11:30 AM CDT Office Visit [facility] CUSTOMER SERVICE DISPATCHER - Medical [place] [id number] [address] Yesenia Friedman DO [address] [facility] [address] [place] [address] Well woman exam (Primary Dx) Social History Tobacco Use Types [...] Sign Reading Time Taken Comments Blood Pressure 110/70 11/03/2017 10:59 AM CDT Pulse - - Temperature - - Respiratory Rate - - Oxygen Saturation - - Inhaled Oxygen Concentration - - Weight 79.4 kg (175 lb) 11/03/2017 10:59 AM CDT Height 167.6 cm (5' 6 ) 11/03/2017 10:59 AM CDT Body Mass Index 28.25 11/03/2017 10:59 AM CDT documented in this encounter Progress Notes * Yesenia Friedman DO - 11/06/2017 5:57 PM CDT CC: Well-Woman Exam HPI: Trinh Corral is a 27 y.o. who presents today for her annual well- woman exam. Has mirena in place. Reports for the past few months she has been having some irregular spotting. Also reports she has been having some irregular cramping. 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 Medical History: UTI Surgical History: Tonsillectomy LN biopsy Family History: Denies family history of breast cancer, or colon cancer ovarain ca- MGM Social History: Denies tobacco, alcohol, or illicit drugs. Medications: Current Outpatient Prescriptions on File Prior to Visit Medication Sig Dispense Refill ??? alclometasone (ACLOVATE) 0.05 % Ointment 3 times daily as needed. 2 ??? TAZORAC 0.05 % Cream daily. 4 No current facility-administered medications on file prior to visit. Allergies: Allergies Allergen Reactions ??? Ciprofloxacin Nausea and Vomiting ??? Keflex [Cephalexin] Nausea and Vomiting ??? Macrobid [Nitrofurantoin Monohyd/M-Cryst] Nausea and Vomiting ??? Sulfamethoxazole-Trimethoprim Unknown Review of Systems: As above. Denies nausea, vomiting, chest pain, shortness of breath, headache, bowel or bladder complaints, abdominal pain, or unintentional changes in weight. Physical Exam: Vitals: 11/03/17 1059 BP: 110/70 Weight: 79.4 kg (175 lb) Height: 5' 6 (1.676 m) General: Well-developed, well-nourished female in [facility] HEENT: Normocephalic, atraumatic. Breast: Equal in size and shape bilaterally. No lesions, palpable masses, or abnormal discharge noted Abdomen: Soft, nontender, nondistended, no rebound/guarding Extremities: No clubbing, cyanosis, or edema. No calf tenderness. Pelvic: Normal appearing external genitalia. Cervix well visualized and no lesions noted. IUD strings present No adnexal masses or fullness noted bilaterally. No cervical motional tenderness. Assessment/Plan: Trinh Corral is a 27 y.o. here today for Well-Woman Exam 1. Irregular spotting with IUD in place - strings present on exam. Will get pelvic u/s - discussed if normally placed can try course of doxy or estrogen - if not positioned correctly plan for replacement 2. Exam today unremarkable, Pap smear was obtained 3. Health Maintenance - Self breast exam 4. Contraception- mirena 5. Patient instructed to return to office in one year for well woman exam unless need arises prior to that time. Yesenia Friedman DO documented in this encounter Plan of Treatment Upcoming Encounters Date Type Department Care Team (Late st Contact Info) Description 05/19/2024 9:00 AM SOURCING ANALYST Appointment [facility] EEG [address] [place] [address] [place] [phone] Gadiel Majano MD [address] [place], [place] [phone] 06/05/2024 8:30 AM SOURCING ANALYST Appointment [facility] [address] [place] [address] [place] [address] Gadiel Majano MD [address] [place], [place] [phone] 08/09/2024 4:00 PM CDT Office Visit [facility] Primary Care [address] [address] Jairo Matute, LISA [address] [place] [address] 01/23/2025 3:20 PM CDT Office Visit [facility] Primary Care [facility] [address] [facility] [address] [place] [address] Gadiel Majano MD [address] [facility] [address] [place] [phone] 08/03/2025 8:30 AM CDT Office Visit [facility] - [place] [facility] - [facility] [address] [facility] [address] [place] [address] Aliza Lion MD [address] [facility] [address] [place] [address] documented as of this encounter Procedures Procedure Name Priority Date/Time Associated Diagnosis Comments CERV/VAG CYTO SCREEN PAP RLFX HPV Routine 11/03/2017 12:01 PM CDT Well woman exam documented in this encounter Results * CERV/VAG CYTOPATH, THIN PREP IMAGR RFLX HPV (11/03/2017 12:01 PM CDT) CLINICAL INFORMATION SEE COMMENT 11/09/2017 7:53 AM CDT [facility] Comment:Information not prov ided LAST MENSTRUAL PERIOD SEE COMMENT 11/09/2017 7:53 AM CDT [facility] Comment:Information not prov ided PREV PAP: SEE COMMENT 11/09/2017 7:53 AM CDT [facility] Comment:11/09/17 NIL PREV BX: SEE COMMENT 11/09/2017 7:53 AM CDT [facility] Comment:Information not prov ided SOURCE Endocervix 11/09/2017 7:53 AM CDT [facility] ADEQUACY: SEE COMMENT 11/09/2017 7:53 AM CDT [facility] Comment: Satisfactory for evaluation. Endocervical/transformation zone component present. Age and/or menstrual status not provided PAP INTERP SEE COMMENT 11/09/2017 7:53 AM CDT [facility] Comment:Negative for intraep ithelial lesion or malignancy. COMMENT SEE COMMENT 11/09/2017 7:53 AM CDT [facility] Comment: This Pap test has been evaluated with computer assisted technology. MILL TENDER WASHING: SEE COMMENT 2017 7:53 AM CDT [facility] Comment:BEMARYSOL Brewer(ASCP) EXPLANATORY NOTE SEE COMMENT 018 7:53 AM CDT [facility] Comment: EXPLANATORY NOTE: The Pap is a screening test for cervical cancer. It is not a diagnostic test and is subject to false negative and false positive results. It is most reliable when a satisfactory sample, regularly obtained, is submitted with relevant clinical findings and history, and when the Pap result is evaluated along with historic and current clinical information. Genital SWAB OF ENDOCERVIX / Unknown Collection / Unknown 11/03/2017 12:01 PM CDT 11/03/2017 1:31 PM CDT Narrative [facility] - 11/09/2017 7:53 AM CDT Performing Organization Information: ?Site ID: ?Name: [facility] ?Address: [facility] [place] [address] ?Director: Natali Adler Yesenia Friedman DO PATHOLOGY/CYTOLOGY O RDERABLES [facility] documented in this encounter Visit Diagnoses Diagnosis Well woman exam- Primary Routine general medical examination at a health care facility documented in this encounter Care Teams Motor And Controls Tester Relationship Specialty Start Date End Date Gadiel Majano MD [address] [place] [phone] PCP - General 02/25/07 documented as of this encounter
--- OUTSIDE RECORDS SUMMARY | 2024-05-11 14:57 | XMS_ITS | Encounter Summary ---
Author Organization [facility] Address [address] [place] [address] Care Team Providers Care Workforce Services Representative Name Role Phone Gadiel Majano MD Primary Care Provider Reason for Referral * Eval and Treat (Routine) - Closed Specialty Diagnoses / Procedures Referred By Contact Referred To Contact Physical Medicine and Rehabilitation Diagnoses Numbness and tingling in left hand Contusion of left elbow, [place] [address] [address] [place] [address] [facility] [address] [place] [address] Referral ID Status Reason Start Date Expiration Date Visits Requested Visits Authorized [id number] Closed Ordering Department To Schedule 12/10/2016 12/11/2017 1 1 Scheduling Instructions Evaluate left ulnar nerve after elbow contusion Reason for Visit * Reason Comments Elbow Injury Lt elbow injury 11/13 * Eval and Treat (Urgent) - Closed Specialty Diagnoses / Procedures Referred By Contac t Referred To Contact Orthopedic Surgery Diagnoses Injury of arm, unspecified laterality, initial encounter Aminata Hammer, ANP [address] [place] [phone] [place] [address] [address] Referral ID Status Reason Start Date Expiration Date V isits Requested Visits Authorized [id number] Closed CRS To Schedule (STL) 11/25/2016 11/25/2017 1 1 Encounter Details Date Type Department Care Team (Late st Contact Info) Description 12/10/2016 10:45 AM CDT Office Visit [facility] Orthopedic Surgery - [place] [address] [place] [address] [place] [address] [place] [address] Positive BRONSON (antinuclear antibody) (Primary Dx); Numbness and tingling in left hand; Contusion of left elbow, subsequent encounter Social History Tobacco Use Types Packs/Day Years [...] Sign Reading Time Taken Comments Blood Pressure 102/73 12/10/2016 10:43 AM CDT Pulse 81 12/10/2016 10:43 AM CDT Temperature - - Respiratory Rate - - Oxygen Saturation - - Inhaled Oxygen Concentration - - Weight 81.6 kg (180 lb) 12/10/2016 10:43 AM CDT Height 167.6 cm (5' 6 ) 12/10/2016 10:43 AM CDT Body Mass Index 29.05 12/10/2016 10:43 AM CDT documented in this encounter Progress Notes * Eladio Marte MD - 12/10/2016 6:18 PM CDT Orthopedic New Patient Note DATE: 12/10/2016 PATIENT NAME: Trinh Corral PRIMARY CARE PROVIDER: Gadiel Majano MD CSN: [id number] : 1990 REASON FOR CONSULT: Left elbow pain after fall one month ago HISTORY OF PRESENT ILLNESS: Trinh Corral is a 26 y.o. female who is reporting pain involving her left elbow after falling approximately one month ago. She initially had primarily pain in the elbow especially on the medial side. She was seen by another clinic and started on some physical therapy. While in physical therapy she has noticed increasing numbness and tingling primarily involving the distribution of the ulnar nerve. Has not had any nerve conduction studies done. PAST MEDICAL HISTORY: Past Medical History: Diagnosis Date ??? Enlarged lymph nodes OVER 1 MOS RT-X2 ??? Kyphosis (acquired) (postural) ??? Other general symptoms age 5 or 6 rt kidney, reflux ??? UTI (urinary tract infection) CHRONIC SURGICAL HISTORY: Past Surgical History: Procedure Laterality Date ??? HX TONSILLECTOMY AGE 4 OR 5 ??? HX WISDOM TEETH EXTRACTION AGE 19 X4 ??? ID BX/REMV,LYMPH NODE,DEEP CERV 07/18/2012 CERVICAL LYMPH NODE BIOPSY performed by Ananda Celestin MD at [facility] CURRENT MEDICATIONS: No current outpatient prescriptions on file prior to visit. No current facility-administered medications on file prior to visit. ADVERSE REACTIONS: Allergies Allergen Reactions ??? Ciprofloxacin Nausea and Vomiting ??? Keflex [Cephalexin] Nausea and Vomiting ??? Macrobid [Nitrofurantoin Monohyd/M-Cryst] Nausea and Vomiting SOCIAL HISTORY: Social History Substance Use Topics ??? Smoking status: Current Some Day Smoker Packs/day: 0.50 Years: 4.00 Types: Cigarettes ??? Smokeless tobacco: Never Used Comment: one pack for a week ??? Alcohol use 0.5 oz/week 1 Cans of beer per week Comment: SOCIALLY FAMILY HISTORY: Family History Problem Relation Age of Onset ??? Heart Disease Mother ??? Migraines Mother ??? Cancer Brother Myeloma & Lymphoma ??? Ovarian Cancer Maternal Grandmother ??? Breast Cancer Neg Hx ??? Colon Cancer Neg Hx REVIEW OF SYSTEMS: Negative for chest pain and shortness of breath PHYSICAL EXAMINATION Vital Signs:BP 102/73 Pulse 81 Ht 5' 6 (1.676 m) Wt 81.6 kg (180 lb) BMI 29.05 kg/m2 General: no acute distress, alert, oriented X 3, appropriate mood and affect HEENT: Atraumatic, normocephalic Chest/Lungs:unlabored breathing Cardiac: RRR with no murmurs, gallops or rubs and no edema in extremities Abdominal:abdomen is soft without significant tenderness, masses, organomegaly or guarding. Extremities: Left elbow demonstrates no swelling or ecchymosis noted. She lacks proximal when 20?? extension and flexes to 90??. She complains of pain primarily on the medial side with paresthesias running down to the fourth and fifth fingers. She notes weakness and numbness of the fingers as well especially with abduction and abduction. No claw deformities noted at this time. Tinel's sign is positive at the elbow. RADIOGRAPHIC FINDINGS: X-rays were reviewed of the left elbow which show normal bony anatomy. MRI scans were reviewed which show diffuse marrow uptake all around the lateral aspect including the capitellum and part of the lateral condyle possibly consistent with a bone bruise or so occult fracture.No corresponding fracture seen on the plain films. IMPRESSION: She appears to have some type of bone contusion of the lateral aspect of the elbow but has very little pain over this area and the capitellum. Possible ulnar nerve neurapraxia. PLAN: Most of her complaints or over the ulnar nerve and she places some weakness in the intrinsic muscles as well. I discussed either getting his time and allowed to heal is usually most contusions to heal on her own, or working up further with her studies. She states that symptoms are getting progressively worse so I think workup would be indicated. I would suggest a nerve conduction study. This was discussed with her today. I also recommend doing primarily a home range of motion program but put formal stretching in physical therapy on hold until we see the results of the nerve study. Taking an anti-inflammatory medication on a regular basis may also be helpful. I will follow her in the office after the nerve conduction studies are completed. Eladio Marte MD This dictation was completed using [employer] Speaking [employer]. Supplier Engineer variances may occur. * Veronica Galicia - 12/10/2016 10:40 AM CDT Date of Injury: November 13, 2016 Detailed Description of how patient was injured: Pt states that she tripped and fell forward down acouple steps. Pt states that she felt her lt elbow locking place she she fell. Bursing, swelling and pain followed immediately. Place injury occurred: Hotel Is this patient on hospice care? no Does this patient reside in a intermediate? no If yes; which one: n/a documented in this encounter Miscellaneous Notes * Patient Instructions - Dimitrios Rankin RN - 12/10/2016 11:26 AM CDT Connotate. Electromyogram (EMG) and Nerve Conduction Studies: About These Tests What are they? An electromyogram (EMG) measures the electrical activity of your muscles when you are not using them (at rest) and when you tighten them (muscle contraction). Nerve conduction studies (NCS) measure how well and how fast the nerves can send electrical signals. EMG and nerve conduction studies are often done together. If they are done together, the nerve conduction studies are done before the EMG. Why are they done? You may need an EMG to find diseases that damage your muscles or nerves or to find why you cannot move your muscles (paralysis), why they feel weak, or why they twitch. You may need nerve conduction studies to find damage to the nerves that lead from the brain and spinal cord to the rest of the body (peripheral nervous system). Nerve conduction studies are often used to help find nerve disorders, such as carpal tunnel syndrome. How can you prepare for these tests? ?? Tell your doctors ALL the medicines, vitamins, supplements, and herbal remedies you take. Some medicines can affect the test results. You may need to stop taking some medicines before you have this test. ?? If you take aspirin or some other blood thinner, be sure to talk to your doctor. He or she will tell you if you should stop taking it before your test. Make sure that you understand exactly what your doctor wants you to do. ?? Wear loose-fitting clothing. You may be given a hospital gown to wear. ?? The electrodes for the test are attached to your skin. Your skin needs to be clean and free of sprays, oils, creams, and lotions. What happens during the tests? You lie on a table or bed or sit in a reclining chair so your muscles are relaxed. For an EMG: ?? Your doctor will insert a needle electrode into a muscle. This will record the electrical activity while the muscle is at rest. You may feel a quick, sharp pain when the needle electrode is put into a muscle. ?? Your doctor will ask you to tighten the same muscle slowly and steadily while the electrical activity is recorded. ?? Your doctor may move the electrode to a different area of the muscle or a different muscle. For nerve conduction studies: ?? Your doctor will attach two types of electrodes to your skin. ?? One type of electrode is placed over a nerve and will give the nerve an electrical pulse. ?? The other type of electrode is placed over the muscle that the nerve controls. It will record how long it takes the muscle to react to the electrical pulse. ?? You will be able to feel the electrical pulses. They are small shocks and are safe. What else should you know about these tests? ?? After an EMG, you may be sore and have a tingling feeling in your muscles for up to 2 days. You may have small bruises or swelling at the needle site. ?? For an EMG, you may be asked to sign a consent form. Talk to your doctor about any concerns you have about the need for the test, its risks, how it will be done, or what the results will mean. How long do they take? ?? An EMG may take 30 to 60 minutes. ?? Nerve conduction tests may take from 15 minutes to 1 hour or more. It depends on how many nervesand muscles your doctor tests. What happens after these tests? ?? If any of the test areas are sore: ?? Put ice or a cold pack on the area for 10 to 20 minutes at a time. Put a thin cloth between the ice and your skin. ?? Take an ylxp-onq-vlyxsyq pain medicine, such as acetaminophen (Tylenol), ibuprofen (Advil, Motrin), or naproxen (Aleve). Be safe with medicines. Read and follow all instructions on the label. ?? You will probably be able to go home right away. ?? You can go back to your usual activities right away. When should you call for help? Watch closely for changes in your health, and be sure to contact your doctor if: ?? Muscle pain from an EMG test gets worse or you have swelling, tenderness, or pus at any of the needle sites. ?? You have any problems that you think may be from the test. ?? You have any questions about the test or have not received your results. Follow-up care is a tejada part of your treatment and safety. Be sure to make and go to all appointments, and call your doctor if you are having problems. It's also a good idea to keep a list of the medicines you take. Ask your doctor when you can expect to have your test results. Where can you learn more? Go to https://www.[employer].net/patientEd. Enter W484 in the search box to learn more about Electromyogram (EMG) and Nerve Conduction Studies: About These Tests. Current as of: March 06, 2016 Content Version: 11.2 ?? [id number] [employer]. Care instructions adapted under license by your healthcare professional. If you have questions about a medical condition or this instruction, always ask your healthcare professional. These instructions may not represent the values of this healthcare organization. [employer] disclaims any warranty or liability for your use of this information. documented in this encounter Plan of Treatment Upcoming Encounters Date Type Department Care Team (Late st Contact Info) Description 05/19/2024 9:00 AM PROFESSIONAL HEALTHCARE REPRESENTATIVE Appointment [facility] EEG [address] [place] [address] Gadiel Majano MD [address] [place], [place] [phone] 06/05/2024 8:30 AM PROFESSIONAL HEALTHCARE REPRESENTATIVE Appointment [facility] [address] [place] [address] Gadiel Mjaano MD [address] [place] [phone] 08/09/2024 4:00 PM CDT Office Visit [facility] Care [address] [phone] Jairo Matute PA [address] [place] [address], [place] [phone] 01/23/2025 3:20 PM CDT Office Visit [facility] Primary Care [facility] [address] [facility] [address] [place] [phone] Gadiel Majano MD [address] [place] [address] [address] [place] [address] 08/03/2025 8:30 AM CDT Office Visit [facility] NEUROLOGY - [place] - [address] [facility] [address] [place] [address] Aliza Lion MD [address] [facility] [address] [place] [address] Scheduled Referrals Name Type Priority Associated Diagnoses Orde r Schedule AMB REFERRAL TO PHYSICIAL MEDICINE REHAB Outpatient Referral Routine Numbness and tingling in left hand Contusion of left elbow, subsequent encounter Ordered: 12/10/2016 documented as of this encounter Visit Diagnoses Diagnosis Positive BRONSON (antinuclear antibody)- Primary Other and unspecified nonspecific immunological findings Numbness and tingling in left hand Disturbance of skin sensation Contusion of left elbow, subsequent encounter documented in this encounter Care Teams Workforce Services Representative Relationship Specialty Start Date End Date Gadiel Majano MD [address] [place] [address] [address] [place] [phone] PCP - General 02/25/07 documented as of this encounter
--- OUTSIDE RECORDS SUMMARY | 2024-05-11 14:57 | XMS_ITS | Encounter Summary ---
Author Organization [facility] Address [address] [place] [address] Care Team Providers Care Oreman Name Role Phone Gadiel Majano MD Primary Care Provider [phone] Encounter Details Date Type Department Care Team (Late Contact Info) Description 02/28/2016 Orders Only [facility] Admitting [address] [place] [address] Jessenia Mendoza, [facility] [address] [facility] [address] [place] [address] Social History Tobacco Use Types Packs/Day Years [...] (Late Contact Info) Description 05/19/2024 9:00 AM COGNOS Appointment [facility] EEG [address] [place] [address] Gadiel Majano MD [address] [place] [address] [address] [place] [address] 06/05/2024 8:30 AM COGNOS Appointment [facility] [address] [place] [address] Gadiel Majano MD [address] [place] [address] [address] [place] [address] 08/09/2024 4:00 PM CDT Office Visit [facility] [address] [facility] [address] [place] [address] Jairo Matute, LISA [address] [place] [address] [address] [place] [address] 01/23/2025 3:20 PM CDT Office Visit [address] [place] [address] Gadiel Majano MD [address] [place] [address] [address] [place] [address] 08/03/2025 8:30 AM CDT Office Visit [facility] NEUROLOGY - [place] - [place] [address] [facility] [address] [place] [address] Aliza Lion MD [address] [facility] [address] [place] [address] documented as of this encounter Visit Diagnoses Not on filedocumented in this encounter Care Teams Oreman Relationship Specialty Start Date End Date Gadiel Majano MD [address] [place] [address] [address] [place] [address] PCP - General 02/25/07 documented as of this encounter
--- OUTSIDE RECORDS SUMMARY | 2024-05-11 14:57 | XMS_ITS | Encounter Summary ---
Author Organization [facility] Address [address] [place] [address] Care Team Providers Care Customer Order Clerk Name Role Phone Gadiel Majano MD Primary Care Provider [phone] Reason for Visit * Reason Onset Date Comments General 07/24/2016 Encounter Details Date Type Department Care Team (Late st Contact Info) Description 07/24/2016 Patient Outreach [facility] DEHYDRATING PRESS OPERATOR - Medical [address] [place] [address] Yesenia Friedman DO [address] [facility] [address] [place] [address] General Social History Tobacco Use Types Packs/Day Years [...] encounter Miscellaneous Notes * Telephone Encounter - Paula Perdomo - 07/24/2016 10:13 AM CST RECALL LETTER SENT TO REMIND PATIENT IT IS TIME FOR A WELL WOMAN APPOINTMENT. STRY EXTENSION SPECIALIST documented in this encounter Plan of Treatment Upcoming Encounters Date Type Department Care Team (Late st Contact Info) Description 05/19/2024 9:00 AM FORESTRY EXTENSION SPECIALIST [facility] [address] [place] [address] Gadiel Majano MD [address] [place] [phone] 06/05/2024 8:30 AM FORESTRY EXTENSION SPECIALIST Appointment [facility] S [facility] [address] [place] [address] Gadiel Majano MD [address] [place] [phone] 08/09/2024 4:00 PM CDT Office Visit [facility] Care [address] [address] Jairo Matute PA [address] [place] [phone] 01/23/2025 3:20 PM CDT Office Visit [address] [address] Gadiel Majano MD [address] [place] [phone] 08/03/2025 8:30 AM CDT Office Visit [facility] NEUROLOGY - [place] - [facility] [address] [facility] [address] [place] [address] Aliza Lion MD [address] [facility] [address] [place] [address] documented as of this encounter Visit Diagnoses Not on filedocumented in this encounter Care Teams Customer Order Clerk Relationship Specialty Start Date End Date Gadiel Majano MD [address] [place] [phone] PCP - General 02/25/07 documented as of this encounter
--- OUTSIDE RECORDS SUMMARY | 2024-05-11 14:57 | XMS_ITS | Encounter Summary ---
Author Organization [facility] Address [address] [place] [address] Care Team Providers Care Brush Sander Name Role Phone Gadiel Majano MD Primary Care Provider Reason for Visit * Reason Onset Date Comments Results 02/28/2016 Encounter Details Date Type Department Care Team (Late st Contact Info) Description 02/28/2016 Telephone [facility] Internal Medicine [address] [address] Gadiel Majano MD [address] [place] [phone] Results Social History Tobacco Use Types [...] Telephone Encounter - Gadiel Majano MD - 02/28/2016 3:56 PM CDT Spoke with pt renal us ok documented in this encounter Plan of Treatment Upcoming Encounters Date Type Department Care Team (Late st Contact Info) Description 05/19/2024 9:00 AM LITERARY WRITER Appointment [facility] EEG [address] [place] [address] [address] [place] [address] Gadiel Majano MD [address] [place] [phone] 06/05/2024 8:30 AM LITERARY WRITER Appointment [facility] S [facility] [address] [place] [address] Gadiel Majano MD [address] [place] [phone] 08/09/2024 4:00 PM CDT Office Visit [facility] Care [address] [address] Jairo Matute PA [address] [place] [phone] 01/23/2025 3:20 PM CDT Office Visit [address] [address] Gdaiel Majano MD [address] [place] [phone] 08/03/2025 8:30 AM CDT Office Visit [facility] NEUROLOGY - [place] [facility] - [facility] [address] [facility] [address] [place] [address] Aliza Lion MD [address] [facility] [address] [place] [address] documented as of this encounter Visit Diagnoses Not on filedocumented in this encounter Care Teams Brush Sander Relationship Specialty Start Date End Date Gadiel Majano MD [address] [place] [phone] PCP - General 02/25/07 documented as of this encounter
--- OUTSIDE RECORDS SUMMARY | 2024-05-11 14:57 | XMS_ITS | Encounter Summary ---
Author Organization [facility] Address [address] [place] [address] Care Team Providers Care Show Worker Name Role Phone Gadiel Majano MD Primary Care Provider [phone] Reason for Visit * Reason Comments Well Woman Exam Encounter Details Date Type Department Care Team (Late st Contact Info) Description 11/09/2016 11:10 AM CDT Office Visit [facility] - [facility] [place] [address] [place] [address] [address] Yesenia Friedman DO [address] [facility] [address] [place] [address] Encounter for well woman exam (Primary Dx) Social History Tobacco [...] Sign Reading Time Taken Comments Blood Pressure 120/80 11/09/2016 11:09 AM CDT Pulse - - Temperature - - Respiratory Rate - - Oxygen Saturation - - Inhaled Oxygen Concentration - - Weight 81.6 kg (180 lb) 11/09/2016 11:09 AM CDT Height 167.6 cm (5' 6 ) 11/09/2016 11:09 AM CDT Body Mass Index 29.05 11/09/2016 11:09 AM CDT documented in this encounter Progress Notes * IdaliaYesenia DO - 11/09/2016 11:26 AM CDT CC: Well-Woman Exam HPI: Trinh Corral is a 26 y.o. who presents today for her annual well- woman exam. She denies any gynecologic complaints today. She is using IUD for contraception, and she states that she is satisfied with this method. 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 Medical History: UTIs Surgical History: Past Surgical History: Procedure Laterality Date ??? HX TONSILLECTOMY AGE 4 OR 5 ??? HX WISDOM TEETH EXTRACTION AGE 19 X4 ??? SC BX/REMV,LYMPH NODE,DEEP CERV 07/18/2012 CERVICAL LYMPH NODE BIOPSY performed by Ananda Celestin MD at [facility] Family History: Denies family history of breast cancer, or colon cancer Ovarian ca- MGM? Social History: Denies tobacco, alcohol, or illicit drugs. Medications: Mirena Allergies: Allergies Allergen Reactions ??? Ciprofloxacin Nausea and Vomiting ??? Keflex [Cephalexin] Nausea and Vomiting ??? Macrobid [Nitrofurantoin Monohyd/M-Cryst] Nausea and Vomiting Review of Systems: As above. Denies nausea, vomiting, chest pain, shortness of breath, headache, bowel or bladder complaints, abdominal pain, or unintentional changes in weight. Physical Exam: Vitals: 11/09/16 1109 BP: 120/80 Weight: 81.6 kg (180 lb) Height: 5' 6 (1.676 m) General: Well-developed, well-nourished female in [facility] HEENT: Normocephalic, atraumatic. Breast: Equal in size and shape bilaterally. No lesions, palpable masses, or abnormal discharge noted Abdomen: Soft, nontender, nondistended, no rebound/guarding Extremities: No clubbing, cyanosis, or edema. No calf tenderness. Pelvic: Normal appearing external genitalia. Cervix well visualized and no lesions noted. No adnexal masses or fullness noted bilaterally. No cervical motional tenderness. Assessment/Plan: Trinh Corral is a 26 y.o. here today for Well-Woman Exam 1. Patient with no specific complaints 2. Exam today unremarkable, Pap smear was obtained 3. Health Maintenance - Self breast exam. Reviewed her concerns about hormones. States it is because she feels laureano sometimes. 4. Contraception- mirena 5. Patient instructed to return to office in one year for well woman exam unless need arises prior to that time. Yesenia Friedman DO documented in this encounter Plan of Treatment Upcoming Encounters Date Type Department Care Team (Late st Contact Info) Description 05/19/2024 9:00 AM BI LEAD Appointment [facility] [address] [place] [address] [place] [phone] Gadiel Majano MD [address] [place] [address] [address] [place] [phone] 06/05/2024 8:30 AM BI LEAD Appointment [facility] [address] [place] [address] [place] [phone] Gadiel Majano MD [address] [place] [address] 08/09/2024 4:00 PM CDT Office Visit [address], [place] [address] Jairo Matute PA [address] [place] [address] [address] [place] [address] 01/23/2025 3:20 PM CDT Office Visit [address] [place] [address] Gadiel Majano MD [address] [place] [address] [address] [place] [phone] 08/03/2025 8:30 AM CDT Office Visit [facility] NEUR[facility] [address] [facility] [place] [address] [place] [address] Aliza Lion MD [address] [facility] [address] [place] [address] documented as of this encounter Procedures Procedure Name Priority Date/Time Associated Diagnosis Comments CHLAMYDIA AND GC, PAP VIAL Routine 11/09/2016 11:58 AM CDT Encounter for well woman exam CERV/VAG CYTO SCREEN PAP RLFX HPV Routine 11/09/2016 11:06 AM CDT Encounter for well woman exam documented in this encounter Results * CHLAMYDIA AND GC, PAP VIAL (11/09/2016 11:58 AM CDT) C TRAC RNA NOT DETECTED NOT DETECTED 11/12/2016 1:46 PM CDT [facility] N.GONORRHOEAE RNA, TMA NOT DETECTED NOT DETECTED 11/12/2016 1:46 PM CDT [facility] COMMENT SEE COMMENT 11/12/2016 1:46 PM CDT [facility] Comment: This test was performed using the APTIMA COMBO2 Assay ([employer] The analytical performance characteristics of this assay, when used to test SurePath specimens have been determined by [employer]. ?? Genital SWAB OF ENDOCERVIX / Unknown Collection / Unknown 11/09/2016 11:58 AM CDT 11/09/2016 3:03 PM CDT Narrative [facility] - 11/12/2016 1:46 PM CDT Performing Organization Information: ?Site ID: [id number] ?Name: [facility] ?Address: [facility] [place] [address] ?Director: Natali Adler MD Yesenia Friedman DO BODY FLUIDS AND STOO LS COM [facility] * CERV/VAG CYTOPATH, THIN PREP IMAGR RFLX HPV (11/09/2016 11:06 AM CDT) CLINICAL INFORMATION SCREENING 11/16/2016 12:28 PM CDT [facility] LAST MENSTRUAL PERIOD UNK 11/16/2016 12:28 PM CDT [facility] PREV PAP: SEE COMMENT 11/16/2016 12:28 PM CDT [facility] Comment:[id number] NIL PREV BX: SEE COMMENT 11/16/2016 12:28 PM CDT [facility] Comment:INFORMATION NOT PROV IDED SOURCE Endocervix 11/16/2016 12:28 PM CDT [facility] ADEQUACY: SEE COMMENT 11/16/2016 12:28 PM CDT [facility] Comment: Satisfactory for evaluation. Endocervical/transformation zone component present. Age and/or menstrual status not provided PAP INTERP SEE COMMENT 11/16/2016 12:28 PM CDT [facility] Comment:Negative for intraep ithelial lesion or malignancy. COMMENT SEE COMMENT 11/16/2016 12:28 PM CDT [facility] Comment: This Pap test has been evaluated with computer assisted technology. RESTAURANT GREETER: SEE COMMENT 2016 12:28 PM CDT [facility] Comment: MVB, CT(ASCP) CT screening location: [place] [address] [address] [place] ? [id number] Genital SWAB OF ENDOCERVIX / Unknown Collection / Unknown 11/09/2016 11:06 AM CDT 11/09/2016 3:03 PM CDT Narrative [facility] - 11/16/2016 12:28 PM CDT Performing Organization Information: ?Site ID: [id number] ?Name: [facility] ?Address: [facility] [place] [address] ?Director: Natali Adler MD Yesenia Friedman DO PATHOLOGY/CYTOLOGY O RDERABLES [facility] documented in this encounter Visit Diagnoses Diagnosis Encounter for well woman exam- Primary documented in this encounter Care Teams Show Worker Relationship Specialty Start Date End Date Gadiel Majano MD [address] [place], [place] [address], [place] [address] PCP - General 02/25/07 documented as of this encounter
--- OUTSIDE RECORDS SUMMARY | 2024-05-11 14:57 | XMS_ITS | Encounter Summary ---
Author Organization [facility] Address [address] [place] [address] Care Team Providers Care Cryptologic Technician Technical Name Role Phone Gadiel Majano MD Primary Care Provider Encounter Details Date Type Department Care Team (Late Contact Info) Description 02/12/2016 Orders Only [facility] Internal Medicine [address] [address] Gadiel Majano MD [address] [place] [address] Recurrent UTI Social History Tobacco Use Types Packs/Day Years [...] (Late Contact Info) Description 05/19/2024 9:00 AM BUSINESS CONTINUITY GLOBAL DIRECTOR Appointment [facility] Support Services EEG [address] [place] [address] [place] [address] Gadiel Majano MD [address] [place] [phone] 06/05/2024 8:30 AM BUSINESS CONTINUITY GLOBAL DIRECTOR Appointment [facility] MRI [address] [place] [address] [place] [phone] Gadiel Majano MD [address] [place] [address] [address] [place] [address] 08/09/2024 4:00 PM CDT Office Visit [facility] [address] [place] [address] [address] [place] [address] Jairo Matute, LISA [address] [place] [address] [address] [place] [address] 01/23/2025 3:20 PM CDT Office Visit [address] [place] [address] Gadiel Majano MD [address] [place] [address] [address] [place] [address] 08/03/2025 8:30 AM CDT Office Visit [facility] NEUROLOGY [facility] [address] [facility] [address] [place] [address] Aliza Lion MD [address] [facility] [address] [place] [address] documented as of this encounter Visit Diagnoses Diagnosis Recurrent UTI Urinary tract infection, site not specified documented in this encounter Care Teams Cryptologic Technician Technical Relationship Specialty Start Date End Date Gadiel Majano MD [address] [place] [address] [address] [place] [address] PCP - General 02/25/07 documented as of this encounter
--- OUTSIDE RECORDS SUMMARY | 2024-05-11 14:57 | XMS_ITS | Encounter Summary ---
Author Organization [facility] Address [address] [place] [address] Care Team Providers Care Dinkey Engine Operator Name Role Phone Gadiel Majano MD Primary Care Provider [phone] Reason for Visit * Reason Onset Date Comments Other 02/14/2016 Encounter Details Date Type Department Care Team (Late Contact Info) Description 02/14/2016 Telephone [facility] Internal Medicine [address] [address] Gadiel Majano MD [address] [place] [address] Other Social History Tobacco Use Types Packs/Day Years [...] Telephone Encounter - Gadiel Majano MD - 02/14/2016 5:19 PM CDT Spoke with pt Urine cx neg Finish macrobid Recheck ua, blood work as planned Fu with urology documented in this encounter Plan of Treatment Upcoming Encounters Date Type Department Care Team (Late Contact Info) Description 05/19/2024 9:00 AM FACTORY CLERK Appointment [facility] EEG S [facility] [address] [place] [address] aGdiel Majano MD [address] [place] [address] 06/05/2024 8:30 AM FACTORY CLERK Appointment [facility] S [facility] [address] [place] [address] Gadiel Majano MD [address] [place] [address] 08/09/2024 4:00 PM CDT Office Visit [facility] Primary Care [address] [address] Jairo Matute, LISA [address] [place] [address] 01/23/2025 3:20 PM CDT Office Visit [address] [address] Gadiel Majano MD [address] [place] [address] 08/03/2025 8:30 AM CDT Office Visit [facility] - [place] [address] [facility] [address] [place] [address] Aliza Lion MD [address] [facility] [address] [place] [address] documented as of this encounter Visit Diagnoses Not on filedocumented in this encounter Care Teams Dinkey Engine Operator Relationship Specialty Start Date End Date Gadiel Majano MD [address] [place] [address] [place] [phone] PCP - General 02/25/07 documented as of this encounter
--- OUTSIDE RECORDS SUMMARY | 2024-05-11 14:57 | XMS_ITS | Encounter Summary ---
Author Organization [facility] Address [address] [place] [address] Care Team Providers Care Camera Assembler Name Role Phone Gadiel Majano MD Primary Care Provider [phone] Encounter Details Date Type Department Care Team (Late Contact Info) Description 02/19/2016 Abstract [facility] Internal Medicine [address] [phone] Gadiel Majano MD [address] [place] [phone] Social History Tobacco Use Types Packs/Day [...] st Contact Info) Description 05/19/2024 9:00 AM CATALOG SPECIALIST Appointment [facility] Support Services [address] [place] [address] Gadiel Majano MD [address] [place] [phone] 06/05/2024 8:30 AM CATALOG SPECIALIST Appointment [facility] MRI [address] [facility] [place] [phone] Gadiel Majano MD [address] [place] [address] [address] [place] [address] 08/09/2024 4:00 PM CDT Office Visit [facility] Care [facility] [address] [place] [address] [address] [place] [address] Jairo Matute, LISA [address] [place] [address] [address] [place] [phone] 01/23/2025 3:20 PM CDT Office Visit [facility] Care [address] [place] [phone] Gadiel Majano MD [address] [place] [address] [address] [place] [address] 08/03/2025 8:30 AM CDT Office Visit [facility] NEUROLOGY - [facility] - [facility] [address] [facility] [address] [place] [address] Aliza Lion MD [address] [facility] [address] [place] [address] documented as of this encounter Procedures Procedure Name Priority Date/Time Associated Diagnosis Comments URINALYSIS MICROSCOPY ONLY Routine 02/10/2016 CBC WITH DIFFERENTIAL Routine 02/10/2016 URINALYSIS W/REFLEX MICROSCOPIC Routine 02/10/2016 HCG QUALITATIVE, URINE Routine 02/10/2016 LIPASE Routine 02/10/2016 AMYLASE Routine 02/10/2016 COMPREHENSIVE METABOLIC PANEL Routine 02/10/2016 documented in this encounter Results * (ABNORMAL) URINALYSIS MICROSCOPY ONLY (02/10/2016) MICRO EXAM EXTERNAL LAB WBC URINE negative EXTERNAL LAB WBC UA 0-2 0 - 2 /hpf EXTERNAL LAB WBC CLUMPS Absent EXTERNAL LAB RBC UA 3-5(A) 0 - 2 /hpf EXTERNAL LAB RBC MORPHOLOGY URINE EXTERNAL LAB BACTERIA UA Negative Negative /hpf EXTERNAL LAB EPITHELIAL CELLS, URINE 0 - 5 /hpf EXTERNAL LAB TRANSITIONAL EPI 0 - 2 /hpf EXTERNAL LAB RENAL EPITHELIAL None Seen /hpf EXTERNAL LAB YEAST Absent EXTERNAL LAB TRICHOMONAS Absent EXTERNAL LAB CLUE CELLS EXTERNAL LAB CRYSTALS, URINE None Seen EXTERNAL LAB CA OXALATE CRYSTAL EXTERNAL LAB AMORPHOUS URATES, URINE EXTERNAL LAB AMORPHOUS PHOSPHATES, URINE EXTERNAL LAB AMORPHOUS CRYSTAL Absent EXTERNAL LAB URIC ACID CRYSTAL Absent EXTERNAL LAB URIC ACID CRYSTAL EXTERNAL LAB TRIPLE PHOS Absent EXTERNAL LAB LEUCINE CRYSTAL Absent EXTERNAL LAB TYROSINE CRYSTAL Absent EXTERNAL LAB CYSTEINE CRYSTAL Absent EXTERNAL LAB CA CARBONATE CRYSTAL Absent EXTERNAL LAB CA PHOSPATE CRYSTAL EXTERNAL LAB CRYSTAL IDENTIFICATION EXTERNAL LAB HYALINE CAST 0-2 None Seen, 0-2 /lpf EXTERNAL LAB BROAD CAST. None Seen /lpf EXTERNAL LAB WBC CAST None Seen /lpf EXTERNAL LAB RBC CAST None Seen /lpf EXTERNAL LAB CELLULAR CAST. EXTERNAL LAB MIXED CELL CAST. None Seen /lpf EXTERNAL LAB EPITH. CELL CAST. None Seen /lpf EXTERNAL LAB GRANULAR CAST None Seen /lpf EXTERNAL LAB FINE GRAN. CAST. EXTERNAL LAB COARSE GRANULAR CASTS, URINE EXTERNAL LAB WAXY CAST None Seen /lpf EXTERNAL LAB FATTY CAST None Seen /lpf EXTERNAL LAB CASTS, URINE EXTERNAL LAB OVAL FAT BODY Absent EXTERNAL LAB SPERMATOZOA Absent EXTERNAL LAB MUCOUS, URINE EXTERNAL LAB MICRO COMMENT EXTERNAL LAB MICRO COMMENT 2 EXTERNAL LAB URINE CULTURE ORDER EXTERNAL LAB Urine specimen (specimen) URINE SPECIMEN OBTAINED BY CLEAN CATCH PROCEDURE / Unknown 02/10/2016 Abstract Provider URINE ORDERABLES EXTERNAL LAB * HCG QUALITATIVE, URINE (02/10/2016) HCG QUAL URINE Negative Negative EXTERNAL LAB , URINE POC EXTERNAL LAB SPECIFIC GRAVITY UA 1.001 - 1.035 EXTERNAL LAB HCG QUAL URINE COMMENT EXTERNAL LAB Urine specimen (specimen) URINE SPECIMEN OBTAINED BY CLEAN CATCH PROCEDURE / Unknown 02/10/2016 Abstract Provider URINE ORDERABLES EXTERNAL LAB * (ABNORMAL) URINALYSIS (02/10/2016) MACRO COMMENT EXTERNAL LAB COLOR UA EXTERNAL LAB COLOR UA Giles(A) Pale to Dark Yellow EXTERNAL LAB CLARITY UA EXTERNAL LAB CLARITY UA Clear Clear EXTERNAL LAB SPECIFIC GRAVITY UA EXTERNAL LAB SPECIFIC GRAVITY UA 1.024 1.001 - 1.035 EXTERNAL LAB PH UA 7.0 5.0 - 8.0 EXTERNAL LAB PH UA EXTERNAL LAB LEUKOCYTE ESTERASE UA EXTERNAL LAB LEUKOCYTE ESTERASE UA Negative Negative EXTERNAL LAB NITRITE UA Positive(A) Negative EXTERNAL LAB NITRITE UA EXTERNAL LAB PROTEIN UA Negative Negative EXTERNAL LAB PROTEIN UA EXTERNAL LAB GLUCOSE UA Negative Negative EXTERNAL LAB GLUCOSE UA EXTERNAL LAB KETONES UA Negative Negative EXTERNAL LAB KETONES UA EXTERNAL LAB UROBILINOGEN UA 0.2 <2.0 mg/dL EXTERNAL LAB UROBILINOGEN UA EXTERNAL LAB BILIRUBIN UA Negative Negative EXTERNAL LAB BILIRUBIN UA EXTERNAL LAB BLOOD UA Negative Negative EXTERNAL LAB BLOOD UA EXTERNAL LAB MICRO EXAM EXTERNAL LAB WBC URINE negative EXTERNAL LAB WBC UA 0 - 2 /hpf EXTERNAL LAB WBC CLUMPS EXTERNAL LAB WBC CLUMPS Absent EXTERNAL LAB RBC UA 0 - 2 /hpf EXTERNAL LAB RBC, URINE EXTERNAL LAB RBC MORPHOLOGY URINE EXTERNAL LAB BACTERIA UA Negative /hpf EXTERNAL LAB BACTERIA UA EXTERNAL LAB EPITHELIAL CELLS, URINE 0 - 5 /hpf EXTERNAL LAB EPITHELIAL CELLS, URINE EXTERNAL LAB TRANSITIONAL EPI EXTERNAL LAB TRANSITIONAL EPI 0 - 2 /hpf EXTERNAL LAB RENAL EPITHELIAL EXTERNAL LAB RENAL EPITHELIAL None Seen /hpf EXTERNAL LAB YEAST EXTERNAL LAB YEAST Absent EXTERNAL LAB TRICHOMONAS EXTERNAL LAB TRICHOMONAS Absent EXTERNAL LAB CLUE CELLS EXTERNAL LAB CRYSTALS, URINE None Seen EXTERNAL LAB CRYSTAL IDENTIFICATION EXTERNAL LAB CA OXALATE CRYSTAL EXTERNAL LAB AMORPHOUS URATES, URINE EXTERNAL LAB AMORPHOUS PHOSPHATES, URINE EXTERNAL LAB AMORPHOUS CRYSTAL EXTERNAL LAB AMORPHOUS CRYSTAL Absent EXTERNAL LAB URIC ACID CRYSTAL Absent EXTERNAL LAB URIC ACID CRYSTAL Absent EXTERNAL LAB URIC ACID CRYSTAL EXTERNAL LAB TRIPLE PHOS Absent EXTERNAL LAB TRIPLE PHOS EXTERNAL LAB LEUCINE CRYSTAL EXTERNAL LAB LEUCINE CRYSTAL Absent EXTERNAL LAB TYROSINE CRYSTAL EXTERNAL LAB TYROSINE CRYSTAL Absent EXTERNAL LAB CYSTEINE CRYSTAL EXTERNAL LAB CYSTEINE CRYSTAL Absent EXTERNAL LAB CA CARBONATE CRYSTAL EXTERNAL LAB CA CARBONATE CRYSTAL Absent EXTERNAL LAB CA PHOSPATE CRYSTAL EXTERNAL LAB CRYSTAL IDENTIFICATION EXTERNAL LAB HYALINE CAST None Seen, 0-2 /lpf EXTERNAL LAB HYALINE CAST EXTERNAL LAB BROAD CAST. EXTERNAL LAB BROAD CAST. None Seen /lpf EXTERNAL LAB WBC CAST None Seen /lpf EXTERNAL LAB WBC CAST EXTERNAL LAB RBC CAST None Seen /lpf EXTERNAL LAB RBC CAST EXTERNAL LAB CELLULAR CAST. EXTERNAL LAB MIXED CELL CAST. EXTERNAL LAB MIXED CELL CAST. None Seen /lpf EXTERNAL LAB EPITH. CELL CAST. EXTERNAL LAB EPITH. CELL CAST. None Seen /lpf EXTERNAL LAB GRANULAR CAST None Seen /lpf EXTERNAL LAB FINE GRAN. CAST. EXTERNAL LAB FINE GRAN. CAST. EXTERNAL LAB COARSE GRANULAR CASTS, URINE EXTERNAL LAB GRANULAR CAST EXTERNAL LAB WAXY CAST None Seen /lpf EXTERNAL LAB WAXY CAST EXTERNAL LAB FATTY CAST None Seen /lpf EXTERNAL LAB FATTY CAST EXTERNAL LAB CASTS, URINE EXTERNAL LAB OVAL FAT BODY EXTERNAL LAB OVAL FAT BODY Absent EXTERNAL LAB SPERMATOZOA Absent EXTERNAL LAB MUCOUS, URINE EXTERNAL LAB MICRO COMMENT EXTERNAL LAB MICRO COMMENT 2 EXTERNAL LAB URINE CULTURE ORDER EXTERNAL LAB Urine specimen (specimen) URINE SPECIMEN OBTAINED BY CLEAN CATCH PROCEDURE / Unknown 02/10/2016 Abstract Provider URINE ORDERABLES EXTERNAL LAB * LIPASE (02/10/2016) LIPASE 60 10 - 70 U/L EXTERNAL LAB Blood specimen (specimen) 02/10/2016 Abstract Provider CHEMISTRY ORDERABLES Performing Organization Address City/[facility]/ZIP Co de Phone Number EXTERNAL LAB * AMYLASE (02/10/2016) AMYLASE 82.0 30.0 - 100 U/L EXTERNAL LAB Blood specimen (specimen) 02/10/2016 Abstract Provider CHEMISTRY ORDERABLES EXTERNAL LAB * (ABNORMAL) COMPREHENSIVE METABOLIC PANEL (02/10/2016) SODIUM 140 135 - 145 mmol/L EXTERNAL LAB SODIUM EXTERNAL LAB POTASSIUM 4.4 3.5 - 5.1 mmol/L EXTERNAL LAB POTASSIUM EXTERNAL LAB CHLORIDE 96 - 108 mmol/L EXTERNAL LAB CHLORIDE EXTERNAL LAB CO2 22 - 30 mmol/L EXTERNAL LAB CO2 EXTERNAL LAB CALCIUM 9.8 8.6 - 10.2 mg/dL EXTERNAL LAB CALCIUM EXTERNAL LAB BUN 6 - 20 mg/dL EXTERNAL LAB BUN EXTERNAL LAB CREATININE 0.65 0.60 - 1.10 mg/dL EXTERNAL LAB CREATININE EXTERNAL LAB GLUCOSE 137(A) 70 - 99 mg/dL EXTERNAL LAB GLUCOSE EXTERNAL LAB TOTAL PROTEIN 6.3 - 8.6 g/dL EXTERNAL LAB TOTAL PROTEIN EXTERNAL LAB ALBUMIN 3.4 - 4.8 g/dL EXTERNAL LAB ALBUMIN EXTERNAL LAB BILIRUBIN TOTAL mg/dL EXTERNAL LAB BILIRUBIN TOTAL EXTERNAL LAB ALKALINE PHOSPHATASE 35 - 104 U/L EXTERNAL LAB ALKALINE PHOSPHATASE EXTERNAL LAB AST 16 5 - 45 U/L EXTERNAL LAB AST EXTERNAL LAB ALT 21 10 - 40 U/L EXTERNAL LAB ALT EXTERNAL LAB GFR, 60 mL/min/1.7 3 sq meter EXTERNAL LAB GFR, EXTERNAL LAB GFR 60 mL/min/1.7 3 sq meter EXTERNAL LAB GFR EXTERNAL LAB ANION GAP mmol/L EXTERNAL LAB OSMOLALITY, CALCULATED EXTERNAL LAB BUN/CREAT RATIO EXTERNAL LAB ALBUMIN/GLOBULIN RATIO EXTERNAL LAB GLOBULIN (CALC) g/dL EXTERNAL LAB GLOBULIN EXTERNAL LAB RESULT COMMENT, CHEMISTRY EXTERNAL LAB Blood specimen (specimen) 02/10/2016 Abstract Provider CHEMISTRY ORDERABLES EXTERNAL LAB * (ABNORMAL) CBC WITH DIFFERENTIAL (02/10/2016) WBC 15.3(A) 3.8 - 9.8 K/uL EXTERNAL LAB WBC K/uL EXTERNAL LAB WBC EXTERNAL LAB MANUAL WBC K/uL EXTERNAL LAB WBC, CORRECTED K/uL EXTERNAL LAB NRBC /100 WBC EXTERNAL LAB NRBCS % EXTERNAL LAB NRBCS EXTERNAL LAB RBC 4.93 3.90 - 5.00 M/uL EXTERNAL LAB RBC EXTERNAL LAB HEMOGLOBIN 15.4(A) 12.1 - 15.1 g/dL EXTERNAL LAB HEMOGLOBIN EXTERNAL LAB HEMATOCRIT 47.0(A) 36.1 - 44.3 % EXTERNAL LAB HEMATOCRIT EXTERNAL LAB MCV 82.2 - 96.4 fL EXTERNAL LAB MCV EXTERNAL LAB MCH 27.2 - 32.6 pg EXTERNAL LAB MCH EXTERNAL LAB MCHC 31.5 - 35.5 g/dL EXTERNAL LAB MCHC EXTERNAL LAB PLATELETS 207 140 - 440 K/uL EXTERNAL LAB PLATELETS EXTERNAL LAB MPV 9.3 - 12.4 fL EXTERNAL LAB MPV EXTERNAL LAB PLATELET, MANUAL EXTERNAL LAB PLT COMMENT EXTERNAL LAB RDW 11.5 - 14.5 % EXTERNAL LAB RDW EXTERNAL LAB RDW-STDEV 37.0 - 54.0 fL EXTERNAL LAB RDW-STDEV EXTERNAL LAB RDW CV EXTERNAL LAB RESULT COMMENT HEMATOLOGY EXTERNAL LAB NEUTROPHILS % EXTERNAL LAB NEUTROPHILS EXTERNAL LAB LYMPHOCYTES % EXTERNAL LAB LYMPHOCYTES EXTERNAL LAB MIXED CELLS, COUNT RELATIVE EXTERNAL LAB MONOCYTES % EXTERNAL LAB MONOCYTES EXTERNAL LAB EOSINOPHILS % EXTERNAL LAB EOSINOPHILS EXTERNAL LAB BASOPHILS % EXTERNAL LAB BASOPHILS EXTERNAL LAB MANUAL DIFFERENTIAL EXTERNAL LAB ADJUSTED WBC K/uL EXTERNAL LAB ADJUSTED WBC K/uL EXTERNAL LAB NRBC EXTERNAL LAB NRBC 0 EXTERNAL LAB NEUTROPHIL EXTERNAL LAB NEUTROPHILS, SEG % EXTERNAL LAB SEGMENTED NEUTROPHILS % EXTERNAL LAB BANDS % EXTERNAL LAB BANDS RELATIVE % EXTERNAL LAB IMMATURE GRANULOCYTES % EXTERNAL LAB LYMPHOCYTES EXTERNAL LAB LYMPHOCYTES RELATIVE % EXTERNAL LA B REACTIVE LYMPHOCYTES EXTERNAL LA B ATYPICAL LYMPHOCYTE % EXTERNAL LAB ATYPICAL LYMPHOCYTES RELATIVE 0 % EXTERNAL LAB MONOCYTE EXTERNAL LAB MONOCYTES RELATIVE % EXTERNAL LAB EOSINOPHILS EXTERNAL LAB EOSINOPHILS RELATIVE % EXTERNAL LA B BASOPHILS EXTERNAL LAB BASOPHILS RELATIVE % EXTERNAL LAB METAMYELOCYTE % EXTERNAL LAB METAMYELOCYTES RELATIVE 0 % EXTERNAL LAB MYELOCYTES % EXTERNAL LAB MYELOCYTES EXTERNAL LAB MYELOCYTES - REL (DIFF) 0 % EXTERNAL LAB PROMYELOCYTE % EXTERNAL LAB PROMYELOCYTES RELATIVE 0 % EXTERNAL LAB MYELOBLASTS /100 EXTERNAL LAB BLAST % EXTERNAL LAB BLAST EXTERNAL LAB BLASTS RELATIVE 0 % EXTERNAL LAB PROLYMPHOCYTE EXTERNAL LAB PLASMACYTE EXTERNAL LAB PROMONOCYTE EXTERNAL LAB ERYTHROBLASTS /100 EXTERNAL LAB OTHER CELL EXTERNAL LAB WBC ESTIMATE EXTERNAL LAB PLATELET EST. EXTERNAL LAB PLATELET EST. EXTERNAL LAB INSTRUMENT ABSOLUTE COUNTS EXTERNAL LAB NEUTROPHIL ABSOLUTE K/uL EXTERNAL LAB NEUTROPHIL ABSOLUTE EXTERNAL LAB NEUTROPHILS ABSOLUTE K/uL EXTERNAL LA B BANDS ABSOLUTE /uL EXTERNAL LAB BANDS ABSOLUTE K/??L EXTERNAL LAB LYMPHOCYTE ABSOLUTE K/uL EXTERNAL LAB LYMPHOCYTE ABSOLUTE EXTERNAL LAB LYMPHOCYTES ABSOLUTE K/uL EXTERNAL LA B MIXED CELLS, COUNT ABSOLUTE EXTERNAL LAB MONOCYTE ABSOLUTE K/uL EXTERNAL LAB MONOCYTE ABSOLUTE EXTERNAL LAB MONOCYTES ABSOLUTE K/uL EXTERNAL LAB EOSINOPHIL ABSOLUTE K/uL EXTERNAL LAB EOSINOPHIL ABSOLUTE K/uL EXTERNAL LAB EOSINOPHILS ABSOLUTE K/uL EXTERNAL LA B BASOPHILS ABSOLUTE K/uL EXTERNAL LAB BASOPHILS ABSOLUTE EXTERNAL LAB BASOPHILS ABSOLUTE K/uL EXTERNAL LAB METAMYELOCYTE ABSOLUTE /uL EXTERNAL LAB METAMYELOCYTES ABSOLUTE 0.00 K/uL EXTERNAL LAB MYELOCYTE ABSOLUTE /uL EXTERNAL LAB MYELOCYTES - ABS (DIFF) 0.00 K/uL EXTERNAL LAB PROMYELOCYTE ABSOLUTE /uL EXTERNAL LAB PROMYELOCYTES ABSOLUTE 0.00 K/uL EXTERNAL LAB BLASTS ABSOLUTE /uL EXTERNAL LAB BLASTS ABSOLUTE 0.00 K/uL EXTERNAL LAB ATYPICAL LYMPHOCYTE ABSOLUTE K/uL EXTERNAL LAB ATYPICAL LYMPHS ABSOLUTE 0.00 K/uL EXTERNAL LAB IMMATURE GRANULOCYTES ABSOLUTE K/uL EXTERNAL LAB RBC MORPHOLOGY EXTERNAL LAB RBC MORPHOLOGY EXTERNAL LAB WBC MORPHOLOGY EXTERNAL LAB PLATELET MORPHOLOGY EXTERNAL LAB ANISOCYTOSIS /hpf EXTERNAL LAB ANISOCYTOSIS EXTERNAL LAB POIKILOCYTES /hpf EXTERNAL LAB POIKILOCYTES EXTERNAL LAB MICROCYTES /hpf EXTERNAL LAB MICROCYTES EXTERNAL LAB MACROCYTES /hpf EXTERNAL LAB MACROCYTES EXTERNAL LAB POLYCHROMASIA /hpf EXTERNAL LAB POLYCHROMASIA EXTERNAL LAB BASOPHILIC STIPPLING /hpf EXTERNAL LA B BASOPHILIC STIPPLING EXTERNAL LA B HYPOCHROMIA /hpf EXTERNAL LAB HYPOCHROMIA EXTERNAL LAB TARGET CELLS /hpf EXTERNAL LAB TARGET CELLS EXTERNAL LAB OVALOCYTES /hpf EXTERNAL LAB OVALOCYTES EXTERNAL LAB SCHISTOCYTES /hpf EXTERNAL LAB SCHISTOCYTES EXTERNAL LAB STOMATOCYTES /hpf EXTERNAL LAB SPHEROCYTES /hpf EXTERNAL LAB SPHEROCYTES EXTERNAL LAB SIDEROCYTES /hpf EXTERNAL LAB SICKLE CELLS /hpf EXTERNAL LAB SICKLE CELLS EXTERNAL LAB ACANTHOCYTES /hpf EXTERNAL LAB ACANTHOCYTES EXTERNAL LAB REILLY CELLS /hpf EXTERNAL LAB REILLY CELLS EXTERNAL LAB TEAR DROP CELLS /hpf EXTERNAL LAB TEAR DROP CELLS EXTERNAL LAB CRENATED RBCS EXTERNAL LAB CRENATED RBCS EXTERNAL LAB ROULEAUX /hpf EXTERNAL LAB ROULEAUX EXTERNAL LAB MICROSPHEROCYTES EXTERNAL LAB DODIE BODIES EXTERNAL LAB PAPPENHEIMER BODIES EXTERNAL LAB PAPPENHEIMER BODIES EXTERNAL LAB FIELDS-JOLLY BODIES /hpf EXTERNAL LAB FIELDS-JOLLY BODIES EXTERNAL LAB TOXIC GRANULATION EXTERNAL LAB TOXIC GRANULATION EXTERNAL LAB DOHLE BODIES /hpf EXTERNAL LAB DOHLE BODIES EXTERNAL LAB HYPERSEGMENTED NEUTROPHILS /hpf EXTERNAL LAB HYPERSEGMENTED NEUTROPHILS EXTERNAL LAB VACUOLATED NEUTROPHILS /hpf EXTERNAL LAB VACUOLATED NEUTROPHILS EXTERNAL LAB AGRANULAR NEUTROPHILS EXTERNAL LAB AGRANULAR NEUTROPHILS EXTERNAL LAB SMUDGE CELLS /100 EXTERNAL LAB SMUDGE CELLS EXTERNAL LAB ALEXANDRO RODS /hpf EXTERNAL LAB CLUMPED PLATELETS EXTERNAL LAB CLUMPED PLATELETS EXTERNAL LAB GIANT PLATELETS EXTERNAL LAB GIANT PLATELETS EXTERNAL LAB CIRCULATING MEGAKARYOCYTE EXTERNAL LAB OBSERVED 1 DIFF EXTERNAL LAB OBSERVED 1 EXTERNAL LAB OBSERVED 2 DIFF EXTERNAL LAB OBSERVED 2 DIFF EXTERNAL LAB COMMENT, DIFFERENTIAL EXTERNAL LAB COMMENT 2, DIFFERENTIAL EXTERNAL LAB REVIEWED ON SMEAR EXTERNAL LAB TOTAL CELLS COUNTED IN DIFF EXTERNAL LAB TOTAL CELLS COUNTED IN DIFF EXTERNAL LAB IMMATURE GRANULOCYTES % EXTERNAL LAB Blood specimen (specimen) 02/10/2016 Abstract Provider HEMATOLOGY ORDERABLE S EXTERNAL LAB documented in this encounter Visit Diagnoses Not on filedocumented in this encounter Care Teams Camera Assembler Relationship Specialty Start Date End Date Gadiel Majano MD [address] [place] [phone] PCP - General 02/25/07 documented as of this encounter
--- OUTSIDE RECORDS SUMMARY | 2024-05-11 14:57 | XMS_ITS | Encounter Summary ---
Author Organization [facility] Address [address] [place] [address] Care Team Providers Care Kindergarten Paraprofessional Name Role Phone Gadiel Majano MD Primary Care Provider [phone] Reason for Visit * Reason Onset Date Comments Results 03/06/2016 Encounter Details Date Type Department Care Team (Late st Contact Info) Description 03/06/2016 Telephone [facility] CONSTRUCTION SAFETY CONSULTANT - Medical [address] [place] [id number] Yesenia Friedman DO [address] [facility] [address] [place] [id number] Results Social History Tobacco Use Types Packs/Day [...] encounter Miscellaneous Notes * Telephone Encounter - Ricarda Hays RN - 03/06/2016 9:15 AM CDT Pt informed. - [facility] * Telephone Encounter - Ricarda Hays RN - 03/06/2016 9:15 AM CDT ----- Message from Yesenia Friedman DO sent at 03/05/2016 8:25 PM CDT ----- hcg negative documented in this encounter Plan of Treatment Upcoming Encounters Date Type Department Care Team (Late st Contact Info) Description 05/19/2024 9:00 AM CHEMICAL LABORATORY TESTER Appointment [facility] [address] [place] [address] Gadiel Majano MD [address] [place] [phone] 06/05/2024 8:30 AM CHEMICAL LABORATORY TESTER Appointment [facility] [address] [facility] [address] [place] [address] Gadiel Majano MD [address] [place] [phone] 08/09/2024 4:00 PM CDT Office Visit [facility] Care [address] [phone] Jairo Matute, LISA [address] [place] [phone] 01/23/2025 3:20 PM CDT Office Visit [facility] Care [place] [phone] Gadiel Majano MD [address] [place] [phone] 08/03/2025 8:30 AM CDT Office Visit [facility] NEUROLOGY - [facility] [place] [address] [facility] [address] [place] [phone] Aliza Lion MD [address] [facility] [address] [place] [phone] documented as of this encounter Visit Diagnoses Not on filedocumented in this encounter Care Teams Kindergarten Paraprofessional Relationship Specialty Start Date End Date Gadiel Majano MD [address] [facility] [address] [place] [address] PCP - General 02/25/07 documented as of this encounter
--- OUTSIDE RECORDS SUMMARY | 2024-05-11 14:57 | XMS_ITS | Encounter Summary ---
Author Organization [facility] Address [address] [place] [address] Care Team Providers Care Release Of Information Specialist Name Role Phone Gadiel Majano MD Primary Care Provider [phone] Reason for Visit * Outpatient Services (Routine) - Closed Specialty Diagnoses / Procedures Referred By Josie t Referred To Contact Laboratory Diagnoses / Procedures LAB Gadiel Majano MD [address] [place] [address] [address] [place] [address] [facility] Lab [address] [place] [address] Referral ID Status Reason Start Date Expiration Date Visits Re quested Visits Authorized [id number] Closed 02/28/2016 03/30/2017 1 1 Encounter Details Date Type Department Care Team (Latest Contact Info) Description 02/28/2016 10:56 AM CDT - 02/28/2016 11:59 PM CDT Hospital Encounter [facility] Laboratory Services [address] [place] [address] Gadiel Majano MD [address] [place] [address] [address] [place] [address] Discharge Disposition: Home or Self Care Social [...] Sig Dispensed Refills Start Date End Date nitrofurantoin (MACROBID) 100 mg capsule 02/10/2016 11/09/2016 phenazopyridine 200 mg tablet 02/10/2016 11/09/2016 documented as of this encounter Plan of Treatment Upcoming Encounters Date Type Department Care Team (Late st Contact Info) Description 05/19/2024 9:00 AM STRATEGIC COMMUNICATIONS MANAGER Appointment [facility] S [employer] [address] [place] [phone] Gadiel Majano MD [address] [place] [phone] 06/05/2024 8:30 AM STRATEGIC COMMUNICATIONS MANAGER Appointment [facility] S [facility] [employer] [address] [place] [phone] Gadiel Majano MD [address] [place] [phone] 08/09/2024 4:00 PM CDT Office Visit [address] [place] [phone] Jairo Matute, LISA [address] [place] [phone] 01/23/2025 3:20 PM CDT Office Visit [address] [place] [phone] Gadiel Majano MD [address] [place] [phone] 08/03/2025 8:30 AM CDT Office Visit [facility] NEUROLOGY - [place] [address] [facility] [place] [address] [place] [phone] Aliza Lion MD [address] [facility] [address] [place] [address] documented as of this encounter Procedures Procedure Name Priority Date/Time Associated Diagnosis Comments URINALYSIS WITH REFLEX CULTURE Routine 02/28/2016 11:28 AM CDT Urinary tract infection, site not specified CBC WITH DIFFERENTIAL Routine 02/28/2016 11:28 AM CDT Urinary tract infection, site not specified BASIC METABOLIC PANEL Routine 02/28/2016 11:28 AM CDT Urinary tract infection, site not specified documented in this encounter Results * (ABNORMAL) URINALYSIS WITH REFLEX CULTURE (02/28/2016 11:28 AM CDT) COLOR UA Yellow Pale to Dark Yellow 02/28/2016 5:17 PM CDT [facility] CLARITY UA Clear Clear 02/28/2016 5:17 PM CDT [facility] SPECIFIC GRAVITY UA 1.020 02/28/2016 5:17 PM CDT [facility] PH UA 9.0(A) 5.0 - 8.0 02/28/2016 5:17 PM CDT [facility] LEUKOCYTE ESTERASE UA Negative Negative 02/28/2016 5:17 PM CDT [facility] [place] NITRITE UA Negative Negative 02/28/2016 5:17 PM CDT [facility] PROTEIN UA 2+(A) Negative 02/28/2016 5:17 PM CDT [facility] [place] GLUCOSE UA Negative Negative 02/28/2016 5:17 PM CDT [facility] [place] KETONES UA Negative Negative 02/28/2016 5:17 PM CDT [facility] UROBILINOGEN UA Normal <2.0 mg/dL 02/28/2016 5:17 PM CDT [facility] BILIRUBIN UA Negative Negative 02/28/2016 5:17 PM CDT [facility] BLOOD UA Negative Negative 02/28/2016 5:17 PM CDT [facility] WBC UA 0-2 0 - 2 /hpf 02/28/2016 5:17 PM CDT [facility] [place] RBC UA 0-2 0 - 2 /hpf 02/28/2016 5:17 PM CDT [facility] [place] BACTERIA UA 1+(A) Negative /hpf 02/28/2016 5:17 PM CDT [facility] [place] EPITHELIAL CELLS, URINE 0-5 0 - 5 /hpf 02/28/2016 5:17 PM CDT [facility] [place] Urine URINE SPECIMEN OBTAINED BY CLEAN CATCH PROCEDURE / Unknown Collection / Unknown 02/28/2016 11:28 AM CDT 02/28/2016 11:28 AM CDT Gadiel Majano MD URINE ORDERABLES [facility] - [facility] CLIA# [id number] [address] [facility] [place] [address] * CBC WITH DIFFERENTIAL (02/28/2016 11:28 AM CDT) WBC 7.5 4.0 - 9.8 K/uL 02/28/2016 5:04 PM CDT [facility] RBC 4.42 3.90 - 4.90 M/uL 02/28/2016 5:04 PM CDT [facility] HEMOGLOBIN 14.0 11.8 - 14.8 g/dL 02/28/2016 5:04 PM CDT [facility] HEMATOCRIT 42.5 35.5 - 44.0 % 02/28/2016 5:04 PM CDT [facility] MCV 96.2 82.0 - 99.0 fL 02/28/2016 5:04 PM CDT [facility] MCH 31.7 27.2 - 32.6 pg 02/28/2016 5:04 PM CDT [facility] MCHC 32.9 31.5 - 35.5 g/dL 02/28/2016 5:04 PM CDT [facility] RDW 12.7 11.5 - 14.5 % 02/28/2016 5:04 PM CDT [facility] RDW-STDEV 45.5 37.1 - 48.7 fL 02/28/2016 5:04 PM CDT [facility] PLATELETS 240 140 - 350 K/uL 02/28/2016 5:04 PM CDT [facility] MPV 11.8 9.3 - 12.4 fL 02/28/2016 5:04 PM CDT [facility] [place] NEUTROPHILS 58 % 02/28/2016 5:04 PM CDT [facility] [place] LYMPHOCYTES 28 % 02/28/2016 5:04 PM CDT [facility] [place] MONOCYTES 11 % 02/28/2016 5:04 PM CDT [facility] [place] EOSINOPHILS 2 % 02/28/2016 5:04 PM CDT [facility] [place] BASOPHILS 1 % 02/28/2016 5:04 PM CDT [facility] NEUTROPHIL ABSOLUTE 4.32 1.90 - 7.00 K/uL 02/28/2016 5:04 PM CDT [facility] LYMPHOCYTE ABSOLUTE 2.10 0.70 - 4.50 K/uL 02/28/2016 5:04 PM CDT [facility] MONOCYTE ABSOLUTE 0.84 0.10 - 1.30 K/uL 02/28/2016 5:04 PM CDT [facility] [place] EOSINOPHIL ABSOLUTE 0.16 0.00 - 0.70 K/uL 02/28/2016 5:04 PM CDT [facility] [place] BASOPHILS ABSOLUTE 0.04 0.00 - 0.20 K/uL 02/28/2016 5:04 PM CDT [facility] [place] IMMATURE GRANULOCYTES 0 % 02/28/2016 5:04 PM CDT [facility] IMMATURE GRANULOCYTES ABSOLUTE 0.01 0.00 - 0.03 K/uL 02/28/2016 5:04 PM CDT [facility] Blood Venipuncture - L ab Collect / Unknown 02/28/2016 11:28 AM CDT 02/28/2016 11:28 AM CDT Gadiel Majano MD HEMATOLOGY ORDERABLE S [facility] - [facility]# [id number] [address] [facility] [address] * BASIC METABOLIC PANEL (02/28/2016 11:28 AM CDT) [facility] SODIUM 140 136 - 145 mmol/L 02/28/2016 5:42 PM CDT [facility] [place] POTASSIUM 4.3 3.5 - 5.0 mmol/L 02/28/2016 5:42 PM T [facility] . [facility] CHLORIDE 100 98 - 107 mmol/L 02/28/2016 5:42 PM T [facility] [place] CO2 26 22 - 29 mmol/L 02/28/2016 5:42 PM T [facility] . [facility] CALCIUM 9.9 8.6 - 10.2 mg/dL 02/28/2016 5:42 PM T [facility] . [place] BUN 10 6 - 20 mg/dL 02/28/2016 5:42 PM T [facility] . [facility] CREATININE 0.70 0.51 - 0.95 mg/dL 02/28/2016 5:42 PM T [facility] - . [facility] GLUCOSE 86 74 - 99 mg/dL 02/28/2016 5:42 PM T [facility] . [facility] GFR >60 >=60 mL/min/1.7 3 sq meter 02/28/2016 5:42 PM T [facility] Comment: eGFR has not been validated for use in the elderly (> 70 years of age), women, patients with serious co-morbid conditions, or persons with extremes of body size or muscle mass and should also be interpreted with caution in patients with acute kidney failure, dialysis dependent patients, patients reporting exceptional dietary intake (e.g. vegetarian diet, high protein diets, creatine supplementation), and patients with severe liver disease. Based on National Kidney Disease Education Program If patient is , please refer to the GFR result. GFR, >60 >=60 mL/min/1.7 3 sq meter 02/28/2016 5:42 PM CDT [facility] - [facility] ANION GAP 14 8 - 16 mmol/L 02/28/2016 5:42 PM CDT [facility] - [facility] Blood Venipuncture - L ab Collect / Unknown 02/28/2016 11:28 AM CDT 02/28/2016 11:28 AM CDT Gadiel Majano MD CHEMISTRY ORDERABLES [facility]# [id number] [address] [place] [address] documented in this encounter Visit Diagnoses Diagnosis Urinary tract infection, site not specified- Primary documented in this encounter Care Teams Release Of Information Specialist Relationship Specialty Start Date End Date Gadiel Majano MD [address] [place] [phone] PCP - General 02/25/07 documented as of this encounter
--- OUTSIDE RECORDS SUMMARY | 2024-05-11 14:57 | XMS_ITS | Encounter Summary ---
Author Organization [facility] Address [address] [place] [address] Care Team Providers Care Rn Lpn Cna Name Role Phone Gadiel Majano MD Primary Care Provider [phone] Reason for Visit * Outpatient Services (Routine) - Closed Specialty Diagnoses / Procedures Referred By Josie fitch Referred To Contact Laboratory Diagnoses U Procedures LAB Yesenia Friedman DO [address] [address] [facility] Lab [address] [place] [phone] Referral ID Status Reason Start Date Expiration Date Visits Re quested Visits Authorized [id number] Closed 03/05/2016 04/05/2017 1 1 Encounter Details Date Type Department Care Team (Latest Contact Info) Description 03/05/2016 10:37 AM CDT - 03/05/2016 11:59 PM T Hospital Encounter [facility] Laboratory Services [address] [place] [phone] Yesenia Friedman DO [address] [address] Discharge Disposition: Home or Self Care Social [...] st Contact Info) Description 05/19/2024 9:00 AM TRAINING AND DEVELOPMENT SPECIALIST Appointment [facility] S [facility] [address] [place] [address] Gadiel Majano MD [address] [place] [phone] 06/05/2024 8:30 AM TRAINING AND DEVELOPMENT SPECIALIST Appointment [facility] [address] [place] [phone] Gadiel Majano MD [address] [place] [phone] 08/09/2024 4:00 PM CDT Office Visit [place] [phone] Jairo Matute PA [address] [place] [phone] 01/23/2025 3:20 PM CDT Office Visit [address] [phone] Gadiel Majano MD [address] [place] [address] [address] [place] [phone] 08/03/2025 8:30 AM CDT Office Visit [facility] - [place] [facility] [address] [facility] [address] [place] [address] Aliza Lion MD [address] [facility] [address] [place] [address] documented as of this encounter Procedures Procedure Name Priority Date/Time Associated Diagnosis Comments HCG QUANTITATIVE, BLOOD Routine 03/05/2016 10:40 AM CDT Missed menses documented in this encounter Results * HCG QUANTITATIVE, BLOOD (03/05/2016 10:40 AM CDT) HCG QUANT, BLOOD <5.0 <5.0 mIU/mL 03/05/2016 7:28 PM CDT [facility] Blood Venipuncture - L ab Collect / Unknown 03/05/2016 10:40 AM CDT 03/05/2016 10:40 AM CDT Narrative [facility] - 03/05/2016 7:28 PM CDT Result of 5 - 25 mIU/mL is indeterminant for , repeat of test recommemded in 48 hours. Reference Range: Gestational Age ? HCG Concentration 3 ??Weeks ?5.8 - 71.2 ? mIU/mL 4 ??Weeks ?9.5 - 750 ?mIU/mL 5 ??Weeks ?217 - 4938 ? mIU/mL 6 ??Weeks ?158 - 31,795 ?? mIU/mL 7 ??Weeks ? 3697 - 163,563 ??mIU/mL 8 ??Weeks ? 32,065 - 149,571 ??mIU/mL 9 ??Weeks ? 63,803 - 151,410 ??mIU/mL 10 Weeks ? 46,509 - 186,977 ??mIU/mL 12 Weeks ? 27,832 - 210,612 ??mIU/mL 14 Weeks ? 13,950 - 62,530 ?? mIU/mL 15 Weeks ? 12,039 - 70,971 ?? mIU/mL 16 Weeks ? 9040 - 56,451 ?? mIU/mL 17 Weeks ? 8175 - 55,868 ?? mIU/mL 18 Weeks ? 8099 - 58,176 ?? mIU/mL Heterophile antibodies and other interfering substances in the serum of some patients may cause a false-positive result in this assay. Before making a diagnosis of malignancy or ectopic , the result of this test should be confirmed with a urine HCG test and correlated with other clinical evidence. Yesenia Friedman DO CHEMISTRY ORDERABLES Performing Organization Address City/State/[facility] Co de Phone Number [facility]# [id number] [address] [facility] [place] [address] documented in this encounter Visit Diagnoses Diagnosis Missed menses Absence of menstruation documented in this encounter Care Teams Rn Lpn Cna Relationship Specialty Start Date End Date Gadiel Majano MD [address] [place] [address] [address] [place] [phone] PCP - General 02/25/07 documented as of this encounter
--- OUTSIDE RECORDS SUMMARY | 2024-05-11 14:57 | XMS_ITS | Encounter Summary ---
Author Organization [facility] Address [address] [place] [address] Care Team Providers Care Coating And Baking Operator Name Role Phone Gadiel Majano MD Primary Care Provider [phone] Reason for Visit * Reason Comments Weight Gain started a yr ago Encounter Details Date Type Department Care Team (Late st Contact Info) Description 02/08/2017 11:00 AM CDT Office Visit [facility] Internal Medicine [address] [address] Gadiel Majano MD [address] [place] [phone] Routine general medical examination at a health care facility (Primary Dx); Hypoglycemia, unspecified; Abnormal weight gain Social History Tobacco Use Types Packs/Day Years [...] Sign Reading Time Taken Comments Blood Pressure 110/80 02/08/2017 11:19 AM CDT Pulse - - Temperature - - Respiratory Rate - - Oxygen Saturation - - Inhaled Oxygen Concentration - - Weight 83.9 kg (185 lb) 02/08/2017 11:19 AM CDT Height 167.6 cm (5' 6 ) 02/08/2017 11:19 AM CDT Body Mass Index 29.86 02/08/2017 11:19 AM CDT documented in this encounter Progress Notes * Gadiel Majano MD - 02/08/2017 5:20 PM CDT Subjective: Trinh Corral is a 26 y.o. female. Prev visit Wt gain Exercise Watches diet Mod etoh No recent lab High stress, work , school Still occ tob use Patient Active Problem List Diagnosis Date Noted ??? Medial epicondylitis of left elbow 01/20/2017 ??? Numbness and tingling in left hand 12/10/2016 ??? Contusion of left elbow 12/10/2016 ??? Tobacco use 07/30/2015 ??? Mirena 12/11/13 12/11/2013 ??? Recurrent UTI 06/15/2011 ??? Nausea alone 04/05/2011 ??? Hypoglycemia, unspecified 04/18/2007 ??? Backache, unspecified 03/28/2007 No current outpatient prescriptions on file prior to visit. No current facility-administered medications on file prior to visit. Allergies Allergen Reactions ??? Ciprofloxacin Nausea and Vomiting ??? Keflex [Cephalexin] Nausea and Vomiting ??? Macrobid [Nitrofurantoin Monohyd/M-Cryst] Nausea and Vomiting Past Medical History: Diagnosis Date ??? Enlarged lymph nodes OVER 1 MOS RT-X2 ??? Kyphosis (acquired) (postural) ??? Other general symptoms age 5 or 6 rt kidney, reflux ??? UTI (urinary tract infection) CHRONIC Past Surgical History: Procedure Laterality Date ??? HX TONSILLECTOMY AGE 4 OR 5 ??? HX WISDOM TEETH EXTRACTION AGE 19 X4 ??? VT BX/REMV,LYMPH NODE,DEEP CERV 07/18/2012 CERVICAL LYMPH NODE BIOPSY performed by Ananda Celestin MD at [facility] OR MA[facility] Family History Problem Relation Age of Onset ??? Heart Disease Mother ??? Migraines Mother ??? Cancer Brother Myeloma & Lymphoma ??? Ovarian Cancer Maternal Grandmother ??? Breast Cancer Neg Hx ??? Colon Cancer Neg Hx Social History Substance Use Topics ??? Smoking status: Current Some Day Smoker Packs/day: 0.50 Years: 4.00 Types: Cigarettes ??? Smokeless tobacco: Never Used Comment: one pack for a week ??? Alcohol use 0.5 oz/week 1 Cans of beer per week Comment: SOCIALLY Review of Systems: During the review of systems, the following significant history is obtained from the patient: Constitutional: denies fevers, chills, sweats,with wt gain, has iud Eye: denies visual disturbance,somepain moving eyes side to side Ear, Nose, Mouth, Throat: denies hearing loss, ear issues, nasal congestion, neck mass, oral issues, hoarse voice Respiratory: denies cough, dyspnea, stridor, wheeze Cardiovascular: denies chest pain, exertional chest pressure/discomfort, fatigue, nausea, syncope, shortness of breath Gastrointestinal: stable Exam/Objective: BP 110/80 Ht 5' 6 (1.676 m) Wt 83.9 kg (185 lb) BMI 29.86 kg/m2 General appearance: over wt nad Head: Normocephalic, without obvious abnormality, atraumatic Eyes: conjunctivae/corneas clear. PERRLA, EOM's intact. Lids appear normal. Ears: normal TM's (shiny without retraction) and external ear canals AU. No apparent lesions or masses. Hearing grossly normal. Nose: Nares normal. Septum midline. Mucosa normal. Throat: Lips, mucosa, palate, oropharynx, and tongue [...] 1. Routine general medical examination at a [facility] facility Z00.00 V70.0 CBC WITH DIFFERENTIAL COMPREHENSIVE METABOLIC PANEL LIPID PANEL TSH HEMOGLOBIN A1C VITAMIN B12 LEVEL VITAMIN D 25 HYDROXY 2. Hypoglycemia, unspecified E16.2 251.2 3. Abnormal weight gain R63.5 783.1 CORTISOL LEVEL Cut etoh discussed TOBACCO COUNSELING She was counseled to discontinue tobacco use. Normal BMI Range: 18 & older: > or = 18.5 and < 25 Body mass index is 29.86 kg/(m^2). Abnormal high BMI: Patient counseled on lifestyle modifications including weight loss and daily exercise. 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 CBC WITH DIFFERENTIAL (Favorites) ??? COMPREHENSIVE METABOLIC PANEL (Favorites) ??? LIPID PANEL (Favorites) ??? TSH (Favorites) ??? HEMOGLOBIN A1C (Favorites) ??? VITAMIN B12 LEVEL (Chemistry) ??? VITAMIN D 25 HYDROXY (Chemistry) ??? CORTISOL LEVEL ??? busPIRone (BUSPAR) 10 mg tablet ??? phentermine (ADIPEX P) 37.5 mg tablet Appropriate medications prescribed Appropriate patient instructions provided Follow-up as I have indicated. Medications and options explained to include common side effects. Understanding of medications, course, diagnosis, and expectations were expressed by patient/guardian. documented in this encounter Plan of Treatment Upcoming Encounters Date Type Department Care Team (Late st Contact Info) Description 05/19/2024 9:00 AM ANCHOR OPERATOR [facility]ointment [facility] [address] [place] [phone] Gadiel Majano MD [address] [place] [phone] 06/05/2024 8:30 AM ANCHOR OPERATOR Appointment [facility] [address] [address] [place] [address] Gadiel Majano MD [address] [place] [phone] 08/09/2024 4:00 PM CDT Office Visit [facility] Primary Care [facility] [address] [place] [address] [address] [place] [phone] Jairo Matute PA [address] [place] [address] [address] [place] [address] 01/23/2025 3:20 PM CDT Office Visit [facility] [address] [place] [address] [address] [place] [phone] Gadiel Majano MD [address] [place] [address] [address] [place] [address] 08/03/2025 8:30 AM CDT Office Visit [facility] - [facility] [address] [facility] [address] [place] [address] Aliza Lion MD [address] [facility] [address] [place] [address] Scheduled Orders Name Type Priority Associated Diagnoses Orde r Schedule COMPREHENSIVE METABOLIC PANEL Lab Routine Routine general medical examination at a health care facility Expected: 02/08/2017, Expires: 02/08/2018 documented as of this encounter Results * CBC WITH DIFFERENTIAL (02/15/2017) Blood Gadiel Majano MD HEMATOLOGY ORDERABLE S [facility] documented in this encounter Visit Diagnoses Diagnosis Routine general medical examination at a health care facility- Primary Hypoglycemia, unspecified Abnormal weight gain documented in this encounter Care Teams Coating And Baking Operator Relationship Specialty Start Date End Date Gadiel Majano MD [address] [place] [address] [address] [place] [phone] PCP - General 02/25/07 documented as of this encounter
--- OUTSIDE RECORDS SUMMARY | 2024-05-11 14:57 | XMS_ITS | Encounter Summary ---
Author Organization [facility] Address [address] [place] [address] Care Team Providers Care Campaign Fundraiser Name Role Phone Gadiel Majano MD Primary Care Provider [phone] Reason for Visit * Reason Comments hypoglycemia Immunization/Injection going to [facility] -07/29/17 Encounter Details Date Type Department Care Team (Late st Contact Info) Description 07/07/2017 11:45 AM LITHOGRAPHIC PROOFER APPRENTICE Office Visit [facility] Internal Medicine [address] [address] Gadiel Majano MD [address] [place] [phone] Travel advice encounter (Primary Dx); Tobacco use Social History Tobacco Use Types [...] Reading Time Taken Comments Blood Pressure 110/80 07/07/2017 11:34 AM LITHOGRAPHIC PROOFER APPRENTICE Pulse - - Temperature - - Respiratory Rate - - Oxygen Saturation - - Inhaled Oxygen Concentration - - Weight 81.6 kg (180 lb) 07/07/2017 11:34 AM LITHOGRAPHIC PROOFER APPRENTICE Height 167.6 cm (5' 6 ) 07/07/2017 11:34 AM LITHOGRAPHIC PROOFER APPRENTICE Body Mass Index 29.05 07/07/2017 11:34 AM LITHOGRAPHIC PROOFER APPRENTICE documented in this encounter Progress Notes * Gadiel Majano MD - 07/07/2017 1:00 PM CST Going [place] Still smoking No recent uti issue The patient appears alert, well appearing, and in no distress.- , Chest:clear to auscultation, no wheezes, rales or rhonchi, symmetric air entry. Heart sounds are normal. Abdomen soft, nontender, Mood stable ASSESSMENT: Encounter Diagnoses Name Primary? Travel advice encounter Yes ??? Tobacco use cdc info [place] reviewed Advise cholera, northern irish encephalitis, yellow fever vaccines Given typhoid Given malaria prophlaxis Mosquito protection reviewed Caution with food/water reviewed advie hep a booster TOBACCO COUNSELING She was counseled to discontinue tobacco use. PLAN: Orders Placed This Encounter ??? typhoid vaccin,live,attenuated (VIVOTIF RIDDHI VACCINE) 2 billion unit Capsule, Delayed Release(E.C.) ??? atovaquone-proguanil (MALARONE) 250-100 mg Tablet OGRAPHIC PROOFER APPRENTICE documented in this encounter Plan of Treatment Upcoming Encounters Date Type Department Care Team (Late st Contact Info) Description 05/19/2024 9:00 AM LITHOGRAPHIC PROOFER APPRENTICE Appointment [facility] [address] [address] [place] [phone] Gadiel Majano MD [address] [place] [phone] 06/05/2024 8:30 AM LITHOGRAPHIC PROOFER APPRENTICE Appointment [facility] [address] [address] [place] [phone] Gadiel Majano MD [address] [place] [phone] 08/09/2024 4:00 PM CDT Office Visit [facility] Primary Care [address] [address] Jairo Matute PA [address] [facility] [address] [place] [address] 01/23/2025 3:20 PM CDT Office Visit [facility] Primary Care [facility] [address] [facility] [address] [place] [address] Gadiel Majano MD 637 [facility] [address] [place] [address] 08/03/2025 8:30 AM CDT Office Visit [facility] NEUROLOGY - [facility] [address] [facility] [address] [place] [address] Aliza Lion MD [address] [facility] [address] [place] [address] documented as of this encounter Visit Diagnoses Diagnosis Travel advice encounter- Primary Tobacco use Tobacco use disorder documented in this encounter Care Teams Campaign Fundraiser Relationship Specialty Start Date End Date Gadiel Majano MD [address] [place] [address] [address] [place] [address] PCP - General 02/25/07 documented as of this encounter
--- OUTSIDE RECORDS SUMMARY | 2024-05-11 14:57 | XMS_ITS | Encounter Summary ---
Author Organization [email or web address] Address [address] [place] [address] Care Team Providers Care Email Production Consultant Name Role Phone Gadiel Majano MD Primary Care Provider Reason for Referral * Outpatient Services (Routine) - Closed Specialty Diagnoses / Procedures Referred By Contac t Referred To Contact Radiology / Cardiology Diagnoses Palpitations Tachycardia Procedures ECHO COMPLETE Gadiel Majano MD [address] [place] [phone] [facility] [address] [place] [address] Referral ID Status Reason Start Date Expiration Date V isits Requested Visits Authorized [id number] Closed [facility] CTS 09/09/2017 10/24/2017 1 1 * Outpatient Services (Routine) - Closed Specialty Diagnoses / Procedures Referred By Contac t Referred To Contact Radiology / Cardiology Diagnoses Palpitations Tachycardia Procedures HOLTER MONITOR Gadiel Majano MD [address] [place] [phone] [facility] [address] [place] [address] Referral ID Status Reason Start Date Expiration Date V isits Requested Visits Authorized [id number] Closed [facility] CTS 09/07/2017 10/08/2018 1 1 Reason for Visit * Reason Comments Heart Monitor pt put heart monitor for two day it read over a 100 both days pt stated that her family has hx of heart problems Encounter Details Date Type Department Care Team (Late st Contact Info) Description 09/07/2017 11:30 AM CDT Office Visit [facility] Internal Medicine [address] [address] Gadiel Majano MD [address] [place] [phone] Palpitations (Primary Dx); Tachycardia; Routine general medical examination at health care facility; Hypoglycemia Social History Tobacco Use Types Packs/Day Years [...] Reading Time Taken Comments Blood Pressure 120/80 09/07/2017 11:52 AM CDT Pulse 84 09/07/2017 11:52 AM CDT Temperature 36.8 ??C (98.3 ??F) 09/07/2017 11:52 AM C DT Respiratory Rate - - Oxygen Saturation 99% 09/07/2017 11:52 AM CDT Inhaled Oxygen Concentration - - Weight 83 kg (183 lb) 09/07/2017 11:52 AM CDT Height 167.6 cm (5' 6 ) 09/07/2017 11:52 AM CDT Body Mass Index 29.54 09/07/2017 11:52 AM CDT documented in this encounter Progress Notes * Gadiel Majano MD - 09/07/2017 1:25 PM CDT Subjective: Trinh Corral is a 27 y.o. female. Patient Active Problem List Diagnosis Date Noted ??? Medial epicondylitis of left elbow 01/20/2017 ??? Numbness and tingling in left hand 12/10/2016 ??? Contusion of left elbow 12/10/2016 ??? Tobacco use 07/30/2015 ??? Mirena 12/11/13 12/11/2013 ??? Recurrent UTI 06/15/2011 ??? Nausea alone 04/05/2011 ??? Hypoglycemia 04/18/2007 ??? Backache, unspecified 03/28/2007 Current Outpatient Prescriptions on File Prior to Visit Medication Sig Dispense Refill ??? alclometasone (ACLOVATE) 0.05 % Ointment 3 times daily as needed. 2 ??? TAZORAC 0.05 % Cream daily. 4 ??? [DISCONTINUED] typhoid vaccin,live,attenuated (VIVOTIF RIDDHI VACCINE) 2 billion unit Capsule, Delayed Release(E.C.) Take 1 Capsule (2,000,000,000 Units) by mouth see administration instructions Qod x 4 doses 2 weeks prior to travel. 4 Capsule 0 ??? [DISCONTINUED] atovaquone-proguanil (MALARONE) 250-100 mg Tablet Take 1 Tablet by mouth daily 2days before travel take 1 week after coming back. 30 Tablet 1 ??? [DISCONTINUED] busPIRone (BUSPAR) 10 mg tablet Take 1 Tablet (10 mg) by mouth 3 times daily. 60Tablet 3 ??? [DISCONTINUED] phentermine (ADIPEX P) 37.5 mg tablet Take 1 Tablet (37.5 mg) by mouth daily before breakfast. 30 Tablet 2 No current facility-administered medications on file prior [...] WISDOM TEETH EXTRACTION AGE 19 X4 ??? AK BX/REMV,LYMPH NODE,DEEP CERV 07/18/2012 CERVICAL LYMPH NODE BIOPSY performed by Ananda Celestin MD at [facility] OR MAIN Family History Problem Relation Age [...] positive for - weight gain Psychological ROS: positive for - anxiety Endocrine ROS: negative for polyuria/polydipsia Respiratory ROS: negative for cough, shortness of breath, or wheezing Cardiovascular ROS: negative for chest pain or dyspnea on exertion--with palpitations Gastrointestinal ROS: negative for reflux, abdominal pain, change in bowel habits, or black or bloody stools Genito-Urinary ROS: negative for dysuria, trouble voiding, or hematuria Exam/Objective: BP 120/80 (BP Location: Right arm, Patient Position (BP): Sitting, BP Cuff Size: Adult) Pulse 84 Temp 98.3 ??F (36.8 ??C) (Oral) Ht 5' 6 (1.676 m) Wt 83 kg (183 lb) SpO2 99% BMI 29.54 kg/m?? General appearance: over wt nad Head: Normocephalic, without obvious abnormality, atraumatic Eyes: conjunctivae/corneas clear. PERRLA, EOM's intact. Lids appear normal. Ears: normal TM's (shiny without retraction) and external ear canals AU. No apparent lesions or masses. Hearing grossly normal. Nose: Nares normal. Septum midline. Mucosa normal. . Throat: Lips, mucosa, palate, oropharynx, and tongue normal.l. Oral mucosa unremarkable with non-inflamed posterior pharynx. [...] Assessment and Plan: ASSESSMENT: ICD-10-CM ICD-9-CM 1. Palpitations R00.2 785.1 HOLTER MONITOR ECHO COMPLETE 2. Tachycardia R00.0 785.0 HOLTER MONITOR ECHO COMPLETE 3. Routine general medical examination at [facility] care facility Z00.00 V70.0 CBC WITHOUT DIFFERENTIAL COMPREHENSIVE METABOLIC PANEL HEMOGLOBIN A1C LIPID PANEL TSH VITAMIN B12 LEVEL MAGNESIUM LEVEL 4. Hypoglycemia E16.2 251.2 Check lab Check holter, echo Dec caffeine TOBACCO COUNSELING She was counseled to discontinue tobacco use. Sees industrial economics teacher Stress issues reviewed does not feel needs rx Normal BMI Range: 18 & older: > or = 18.5 and < 25 Body mass index is 29.54 kg/m??. Abnormal high BMI: Patient counseled on lifestyle modifications including weight loss and daily exercise. PLAN: Orders Placed This Encounter ??? CBC WITHOUT DIFFERENTIAL (Favorites) ??? COMPREHENSIVE METABOLIC PANEL (Favorites) ??? HEMOGLOBIN A1C (Favorites) ??? LIPID PANEL (Favorites) ??? TSH (Favorites) ??? VITAMIN B12 LEVEL ??? MAGNESIUM LEVEL (Chemistry) ??? HOLTER MONITOR ??? ECHO COMPLETE Appropriate medications prescribed Appropriate patient instructions provided Follow-up as I have indicated. Medications and options explained to include common side effects. Understanding of medications, course, diagnosis, and expectations were expressed by patient/guardian. documented in this encounter Plan of Treatment Upcoming Encounters Date Type Department Care Team (Late st Contact Info) Description 05/19/2024 9:00 AM PACKING ROOM WORKER Appointment [facility] Support Services EEG [address] [place] [address] [place] [address] Gadiel Majano MD [address] [place] [phone] 06/05/2024 8:30 AM PACKING ROOM WORKER Appointment [facility] MRI S [facility] [address] [place] [address] Gadiel Majano MD [address] [place] [address] [address] [place] [address] 08/09/2024 4:00 PM CDT Office Visit [facility] Primary Care [address] [place] [address] Jairo Matute, LISA [address] [place], [place] [address] [address] 01/23/2025 3:20 PM CDT Office Visit [facility] Care [address] [place] [address] Gadiel Majano MD [address] [place] [address] [address] [place] [address] 08/03/2025 8:30 AM CDT Office Visit [facility] NEUROLOGY - [place] [facility] - [facility] [place] [address] [facility] [address] [place] [address] Aliza Lion MD [address] [facility] [address] [place] [address] Scheduled Orders Name Type Priority Associated Diagnoses Orde r Schedule CBC WITHOUT DIFFERENTIAL Lab Routine Routine general medical examination at [facility] care [facility] Expected: 09/07/2017, Expires: 09/07/2018 COMPREHENSIVE METABOLIC PANEL Lab Routine Routine general medical examination at [facility] Expected: 09/07/2017, Expires: 09/07/2018 HEMOGLOBIN A1C Lab Routine Routine general medical examination at [facility] Expected: 09/07/2017, Expires: 09/07/2018 LIPID PANEL Lab Routine Routine general medical examination at [facility] Expected: 09/07/2017, Expires: 09/07/2018 TSH Lab Routine Routine general medical examination at health care facility Expected: 09/07/2017, Expires: 09/07/2018 VITAMIN B12 LEVEL Lab Routine Routine general medical examination at [facility] care facility Expected: 03/08/2018, Expires: 09/07/2018 MAGNESIUM LEVEL Lab Routine Routine general medical examination at [facility] care facility Expected: 09/07/2017, Expires: 09/07/2018 documented as of this encounter Results * HOLTER MONITOR (10/11/2017 8:05 AM CDT) Narrative Procedure Note Isiah Strong MD - 10/11/2017 8:05 AM CDT [place], [place] [address] Ticket Counter Report CSN: [id number] DATE OF SERVICE: 09/28/2017 HEART MONITOR INDICATION Palpitations. INTERPRETATION This was a Holter monitor. The patient was monitored for 48 hours. The rhythm was sinus. Average heart rate 91. Heart ranged from 56 to181. Review of tracings at heart rate 181 revealed sinus tachycardia. There were no episodes of high-grade AV block. There were no pauses ofgreater than 2 seconds. There was no atrial or ventricular ectopy. ELINA:MEDQ DID:[id number] Dictated by: Isiah Strong MD cc: Gadiel Majano MD Gadiel Majano MD CARDIAC SERVICES ORD ERABLES [facility] CLIA# [id number] [address] [place] [address], [facility] [address] [id number] * ECHO COMPLETE (09/28/2017 3:38 PM CDT) EJECTION FRACTION INTERFACE SYSTEM 09/28/2017 2:15 PM CDT Narrative INTERFACE SYSTEM - 09/29/2017 2:18 PM CDT [address] [place] [place] [address] [email or web address] Transthoracic Echocardiography Patient: ? Trinh Corral MRN: ? [id number] Study ID: ?[id number] Gender: ?F : ? 1990 Age: ? 27 Race: ?[facility] Height ? 167.6cm Study Date: ?09/28/2017 Weight: ?83kg Access. #: ? [id number] BP: *Referring Physician:* Gadiel Majano *Ordering Physician:* ??Gadiel Majano Starch Mangle Tender: Indications: Tachycardia. ??Palpitations. STUDY CONCLUSIONS: SUMMARY: - Left ventricle: The cavity size was normal. Wall thickness ??was normal. Global systolic function was normal. Left ??ventricular diastolic function was normal. Ejection ??fraction (MOD, 2-plane): 58%. - Left atrium: The atrium was normal in size. - Right ventricle: The cavity size was normal. Systolic ??function was normal. - Pulmonary arteries: Systolic pressure could not be ??estimated. Cardiac Anatomy: LEFT VENTRICLE: ??The cavity size was normal. Wall thickness was normal. Global systolic function was normal. Left ventricular diastolic function was normal. AORTIC VALVE: ?? Structurally normal valve. Trileaflet. Doppler: ?? No significant regurgitation. ?VTI ratio of LVOT to aortic valve: 0.56. ?Mean gradient (S): 3mm Hg. Peak gradient (S): 5mm Hg. AORTA: ??Aortic root: The aortic root was normal in size. MITRAL VALVE: ?? Structurally normal valve. ?Doppler: ?? No significant regurgitation. LEFT ATRIUM: ??The atrium was normal in size. RIGHT VENTRICLE: ??The cavity size was normal. Systolic function was normal. PULMONIC VALVE: ?? Structurally normal valve. ?Doppler: No significant regurgitation. TRICUSPID VALVE: ?? Structurally normal valve. ?Doppler: Mild regurgitation. PULMONARY ARTERY: ?? Systolic pressure could not be estimated. RIGHT ATRIUM: ??The atrium was normal in size. PERICARDIUM: ??There was no pericardial effusion. SYSTEMIC VEINS: Inferior vena cava: Not visualized. Measurements Left ventricle ? Value ?Reference LV ID, ED, PLAX chordal ?(L) ? 4.6 ?? cm ? 43.0 - 52.0 LV PW thickness, ED ?1.0 ?? cm ? LV end-diastolic volume, ? 66 ?ml ? 2-p LV end-systolic volume, ?28 ?ml ? 2-p LV ejection fraction, 2-p ?58 ?% ? LV end-diastolic ? 34 ?ml/m^2 volume/bsa, 2-p LV end-systolic ?15 ?ml/m^2 volume/bsa, 2-p LV e', lateral ? 0.113 m/sec ?? LV E/e', lateral ? 6 ? LV e', medial ?0.102 m/sec ?? LV E/e', medial ?6 ? LV e', average ? 0.108 m/sec ?? LV E/e', average ? 6 ? Ventricular septum ? Value ?Reference IVS thickness, ED ?1.1 ?? cm ? LVOT ? Value ?Reference LVOT ID, S ? 2.0 ?? cm ? LVOT area ?3 ? cm^2 ?? LVOT peak velocity, S ?0.69 ??m/sec ?? LVOT VTI, S ?13.8 ??cm ? Aortic valve ? Value ?Reference Aortic valve peak ?1.1 ?? m/sec ?? velocity, S Aortic valve VTI, S ?24.6 ??cm ? Aortic mean gradient, S ?3 ? mm Hg ?? Aortic peak gradient, S ?5 ? mm Hg ?? VTI ratio, LVOT/AV ? 0.56 ? Aorta ?Value ?Reference Aortic root ID ? 2.6 ?? cm ? Left atrium ?Value ?Reference LA volume, ES, 2-p ? 32 ?ml ? LA volume/bsa, ES, 2-p ? 17 ?ml/m^2 Mitral valve ? Value ?Reference Mitral E-wave peak ? 0.63 ??m/sec ?? velocity Mitral A-wave peak ? 0.46 ??m/sec ?? velocity Mitral deceleration time ?? (N) ? 187 ?? ms ? 150 - 230 Mitral E/A ratio, peak ? 1.36 ? Pulmonic valve ? Value ?Reference Pulmonic valve peak ?0.97 ??m/sec ?? velocity, S Legend: (L) ??and ??(H) ??sonu values outside specified reference range. (N) ??collier values inside specified reference range. Procedure data: Procedure information: ??Transthoracic echocardiography. Image quality was fair. Scanning was performed from the parasternal, apical, and subcostal acoustic windows. Transthoracic echocardiography. ??Complete 2D, complete spectral Doppler, and color Doppler. ??Birthdate: ??Patient birthdate: 1990. ??Age: ??Patient is 27yr old. ??Sex: Gender: female. ??Height: ??Height: 167.6cm. Height: 66in. Weight: ??Weight: 83kg. Weight: 182.6lb. ??Body mass index: BMI: 29.6kg/m^2. ??Body surface area: ?BSA: 1.93m^2. ??Study date: ??Study date: 09/28/2017. Study time: 02:15 PM. Prepared and Electronically Authenticated Isiah Strong M.D. ([facility]) [id number] Procedure Note Isiah Strong MD - 09/29/[address] [address] [email or web address] Transthoracic Echocardiography Patient: Trinh Corral Study ID: [id number] Gender: F : 1990 Age: 27 Race: CAU Height 167.6cm Study Date: 09/28/2017 Weight: 83kg Access. #: [id number] BP: *Referring Physician:* Gadiel Majano *Ordering Physician:* Gadiel Majano Starch Mangle Tender: Indications: Tachycardia. Palpitations. STUDY CONCLUSIONS: SUMMARY: - Left ventricle: The cavity size was normal. Wall thickness was normal. Global systolic function was normal. Left ventricular diastolic function was normal. Ejection fraction (MOD, 2-plane): 58%. - Left atrium: The atrium was normal in size. - Right ventricle: The cavity size was normal. Systolic function was normal. - Pulmonary arteries: Systolic pressure could not be estimated. Cardiac Anatomy: LEFT VENTRICLE: The cavity size was normal. Wall thickness was normal. Global systolic function was normal. Left ventricular diastolic function was normal. AORTIC VALVE: Structurally normal valve. Trileaflet. Doppler: No significant regurgitation. VTI ratio of LVOT to aortic valve: 0.56. Mean gradient (S): 3mm Hg. Peak gradient (S): 5mm Hg. AORTA: Aortic root: The aortic root was normal in size. MITRAL VALVE: Structurally normal valve. Doppler: No significant regurgitation. LEFT ATRIUM: The atrium was normal in size. RIGHT VENTRICLE: The cavity size was normal. Systolic function was normal. PULMONIC VALVE: Structurally normal valve. Doppler: No significant regurgitation. TRICUSPID VALVE: Structurally normal valve. Doppler: Mild regurgitation. PULMONARY ARTERY: Systolic pressure could not be estimated. RIGHT ATRIUM: The atrium was normal in size. PERICARDIUM: There was no pericardial effusion. SYSTEMIC VEINS: Inferior vena cava: Not visualized. Measurements Left ventricle Value Reference LV ID, ED, PLAX chordal (L) 4.6 cm 43.0 - 52.0 LV PW thickness, ED 1.0 cm LV end-diastolic volume, 66 ml 2-p LV end-systolic volume, 28 ml 2-p LV ejection fraction, 2-p 58 % LV end-diastolic 34 ml/m^2 volume/bsa, 2-p LV end-systolic 15 ml/m^2 volume/bsa, 2-p LV e', lateral 0.113 m/sec LV E/e', lateral 6 LV e', medial 0.102 m/sec LV E/e', medial 6 LV e', average 0.108 m/sec LV E/e', average 6 Ventricular septum Value Reference IVS thickness, ED 1.1 cm LVOT Value Reference LVOT ID, S 2.0 cm LVOT area 3 cm^2 LVOT peak velocity, S 0.69 m/sec LVOT VTI, S 13.8 cm Aortic valve Value Reference Aortic valve peak 1.1 m/sec velocity, S Aortic valve VTI, S 24.6 cm Aortic mean gradient, S 3 mm Hg Aortic peak gradient, S 5 mm Hg VTI ratio, LVOT/AV 0.56 Aorta Value Reference Aortic root ID 2.6 cm Left atrium Value Reference LA volume, ES, 2-p 32 ml LA volume/bsa, ES, 2-p 17 ml/m^2 Mitral valve Value Reference Mitral E-wave peak 0.63 m/sec velocity Mitral A-wave peak 0.46 m/sec velocity Mitral deceleration time (N) 187 ms 150 - 230 Mitral E/A ratio, peak 1.36 Pulmonic valve Value Reference Pulmonic valve peak 0.97 m/sec velocity, S Legend: (L) and (H) sonu values outside specified reference range. (N) collier values inside specified reference range. Procedure data: Procedure information: Transthoracic echocardiography. Image quality was fair. Scanning was performed from the parasternal, apical, and subcostal acoustic windows. Transthoracic echocardiography. Complete 2D, complete spectral Doppler, and color Doppler. Birthdate: Patient birthdate: 1990. Age: Patient is 27yr old. Sex: Gender: female. Height: Height: 167.6cm. Height: 66in. Weight: Weight: 83kg. Weight: 182.6lb. Body mass index: BMI: 29.6kg/m^2. Body surface area: BSA: 1.93m^2. Study date: Study date: 09/28/2017. Study time: 02:15 PM. Prepared and Electronically Authenticated Isiah Strong M.D. ([facility]) [id number] Gadiel Majano MD US ORDERABLES INTERFACE SYSTEM Refer to clinic/hospital department documented in this encounter Visit Diagnoses Diagnosis Palpitations- Primary Tachycardia Tachycardia, unspecified Routine general medical examination at health care facility Routine general medical examination at a health care facility Hypoglycemia Hypoglycemia, unspecified Palpitations Tachycardia Tachycardia, unspecified Palpitations Tachycardia Tachycardia, unspecified documented in this encounter Care Teams Email Production Consultant Relationship Specialty Start Date End Date Gadiel Majano MD [address] [place] [address] PCP - General 02/25/07 documented as of this encounter
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
--- OUTSIDE RECORDS SUMMARY | 2024-05-11 14:57 | XMS_ITS | Encounter Summary ---
Author Organization [facility] Address [address] [place] [address] Care Team Providers Care Dashboard Developer Name Role Phone Gadiel Majano MD Primary Care Provider [phone] Reason for Referral * Outpatient Services (Routine) - Closed Specialty Diagnoses / Procedures Referred By Josie fitch Referred To Contact Radiology / Cardiology Diagnoses Palpitations Tachycardia Procedures HOLTER MONITOR Gadiel Majano MD [address] [facility] [address] [place] [address] [facility] Card[facility] [address] [place] [address] Referral ID Status Reason Start Date Expiration Date V isits Requested Visits Authorized [id number] Closed STL CTS 09/07/2017 10/08/2018 1 1 Reason for Visit * Auth/Cert Specialty Diagnoses / Procedures Referred By Josie fitch Referred To Contact Radiology [facility] [address] [facility] [address] [place] [address] Referral ID Status Reason Start Date Expiration Date Visits Re quested Visits Authorized [id number] 1 1 Encounter Details Date Type Department Care Team (Latest Contact Info) Description 09/28/2017 1:19 PM CDT - 09/28/2017 11:59 PM CDT Hospital Encounter [facility] Diagnostic Cardiology Services [facility] [address] [facility] [address] [place] [address] Gadiel Majano MD [address] [place] [phone] Discharge Disposition: Home or Self Care Social [...] on file documented as of this encounter Procedure Notes * Isiah Strong MD - 10/11/2017 8:05 AM CDTAssociated Order(s): HOLTER MONITOR [place], [place] [address] Dish Stacker Report CSN: [id number] DATE OF SERVICE: 09/28/2017 HEART MONITOR INDICATION Palpitations. INTERPRETATION This was a Holter monitor. The patient was monitored for 48 hours. The rhythm was sinus. Average heart rate 91. Heart ranged from 56 to 181. Review of tracings at heart rate 181 revealed sinus tachycardia. There were no episodes of high-grade AV block. There were no pauses of greater than 2 seconds. There was no atrial or ventricular ectopy. ELINA:MEDQ DID: [id number] Dictated by: Isiah Strong MD cc: Gadiel Majano MD documented in this encounter Plan of Treatment Upcoming Encounters Date Type Department Care Team (Late st Contact Info) Description 05/19/2024 9:00 AM FISH PROCESSING SUPERVISOR Appointment [facility] [address] [place] [address] Gadiel Majano MD [address] [place] [phone] 06/05/2024 8:30 AM FISH PROCESSING SUPERVISOR Appointment [facility] [address] [place] [address] Gadiel Majano MD [address] [place] [address] [address] [place] [address] 08/09/2024 4:00 PM CDT Office Visit [facility] Primary Care [address] [place] [address] Jairo Matute PA [address] [place] [address] [address] [place] [address] 01/23/2025 3:20 PM CDT Office Visit [facility] [address] [place] [address] Gadiel Majano MD [address] [place] [address] [address] [place] [address] 08/03/2025 8:30 AM CDT Office Visit [facility] NEUROLOGY - [facility] 5003B [address] [facility] [address] [place] [address] Aliza Lion MD [address] [facility] [place] [address] [place] [address] documented as of this encounter Procedures Procedure Name Priority Date/Time Associated Diagnosis Comments HOLTER MONITOR Routine 10/11/2017 8:05 AM CDT Palpitations Tachycardia documented in this encounter Results * HOLTER MONITOR (10/11/2017 8:05 AM CDT) Narrative Procedure Note Isiah Strong MD - 10/11/2017 8:05 AM CDT [place], [place] [address] Dish Stacker Report CSN: [id number] DATE OF SERVICE: 09/28/2017 HEART MONITOR INDICATION [...] was no atrial or ventricular ectopy. ELINA:MEDQ DID:[id number] Dictated by: Isiah Strong MD cc: Gadiel Majano MD Gadiel Majano MD CARDIAC SERVICES ORD ERABLES [facility] CLIA# [id number] [address] [place] [address], [address] [place] [address] documented in this encounter Visit Diagnoses Diagnosis Palpitations Tachycardia Tachycardia, unspecified documented in this encounter Care Teams Dashboard Developer Relationship Specialty Start Date End Date Gadiel Majano MD [address] [place] [address] [place] [phone] PCP - General 02/25/07 documented as of this encounter
--- OUTSIDE RECORDS SUMMARY | 2024-05-11 14:57 | XMS_ITS | Encounter Summary ---
Author Organization [facility] Address [address] [place] [address] Care Team Providers Care Silver Plater Name Role Phone Gadiel Majano MD Primary Care Provider Reason for Referral * Outpatient Services (Routine) - Closed Specialty Diagnoses / Procedures Referred By Contac t Referred To Contact Diagnoses Recurrent UTI Procedures US RENAL AND BLADDER Gadiel Majano MD [address] [place] [phone] Referral ID Status Reason Start Date Expiration Date V isits Requested Visits Authorized [id number] Closed STL CTS 02/12/2016 03/14/2017 1 1 Reason for Visit * Outpatient Services (Routine) - Closed Specialty Diagnoses / Procedures Referred By Contac t Referred To Contact Diagnoses Recurrent UTI Procedures US RENAL AND BLADDER Gadiel Majano MD [address] [place] [phone] Referral ID Status Reason Start Date Expiration Date V isits Requested Visits Authorized [id number] Closed STL CTS 02/12/2016 03/14/2017 1 1 Encounter Details Date Type Department Care Team (Latest Contact Info) Description 02/28/2016 10:55 AM CDT - 02/28/2016 11:59 PM CDT Hospital Encounter [facility] [address] [place] [phone] Gadiel Majano MD [address] [place] [phone] Discharge Disposition: Home or Self Care Social [...] st Contact Info) Description 05/19/2024 9:00 AM DIVISION COMMANDER Appointment [facility] EEG [address] [place] [address] [place] [address] Gadiel Majano MD [address] [place] [phone] 06/05/2024 8:30 AM DIVISION COMMANDER Appointment [facility] [address] [place] [address] [place] [address] Gadiel Majano MD [address] [place] [phone] 08/09/2024 4:00 PM CDT Office Visit [address] [address] Jairo Matute PA [address] [place] [phone] 01/23/2025 3:20 PM CDT Office Visit [address] [place] [phone] Gadiel Majano MD [address] [facility] [place] [address] [place] [address] 08/03/2025 8:30 AM CDT [facility] [place] [facility] 5[address]B [address] [facility] [place] [address] [place] [address] Aliza Lion MD [address] [facility] [address] [place] [address] documented as of this encounter Procedures Procedure Name Priority Date/Time Associated Diagnosis Comments US RENAL AND BLADDER Routine 02/28/2016 11:23 AM CDT Recurrent UTI documented in this encounter Results * US RENAL AND BLADDER (02/28/2016 11:23 AM CDT) Anatomical Region Laterality Modality Abdomen Ultrasound 02/28/2016 11:2 7 AM CDT Impressions 02/28/2016 11:30 AM CDT IMPRESSION: Mildly small left kidney, otherwise negative DICTATION LOCATION: Location 1 - [facility] 02/28/2016 11:30 AM CDT ULTRASOUND OF THE RETROPERITONEUM DATE: 02/28/2016 11:23 AM HISTORY: Recurrent UTI COMPARISON: None available. FINDINGS: ??Multiple transverse, longitudinal and oblique images of the kidneys and bladder were obtained. ??The right kidney measures 10.7 cm longitudinally. ?? The left kidney measures 9.5 cm longitudinally. ?? Both kidneys are normal in size, contour and echotexture. There is no evidence of hydronephrosis or renal calcification. The bladder is normal. Procedure Note Yady Kidd MD - 02/28/2016 ULTRASOUND OF THE RETROPERITONEUM DATE: 02/28/2016 11:23 AM HISTORY: Recurrent UTI COMPARISON: None available. FINDINGS: Multiple transverse, longitudinal and oblique images of the kidneys and bladder were obtained. The right kidney measures 10.7 cm longitudinally. The left kidney measures 9.5 cm longitudinally. Both kidneys are normal in size, contour and echotexture. There is no evidence of hydronephrosis or renal calcification. The bladder is normal. IMPRESSION IMPRESSION: Mildly small left kidney, otherwise negative DICTATION LOCATION: Location 1 - [facility] Gadiel Majano MD ORDERABLES documented in this encounter Visit Diagnoses Diagnosis Recurrent UTI Urinary tract infection, site not specified documented in this encounter Care Teams Silver Plater Relationship Specialty Start Date End Date Gadiel Majano MD [address] [place] [phone] PCP - General 02/25/07 documented as of this encounter
--- OUTSIDE RECORDS SUMMARY | 2024-05-11 14:57 | XMS_ITS | Encounter Summary ---
Author Organization [facility] Address [address] [place] [address] Care Team Providers Care Tv Technician Name Role Phone Gadiel Majano MD Primary Care Provider [phone] Reason for Visit * Reason Onset Date Comments Results 02/29/2016 Encounter Details Date Type Department Care Team (Late Contact Info) Description 02/29/2016 Telephone [facility] Internal Medicine [address] [address] Gadiel Majano MD [address] [place] [phone] Results Social History Tobacco Use Types [...] Telephone Encounter - Gadiel Majano MD - 02/29/2016 8:59 AM CDT E mail documented in this encounter Plan of Treatment Upcoming Encounters Date Type Department Care Team (Late st Contact Info) Description 05/19/2024 9:00 AM RIP TAILER Appointment [facility] Services EEG [address] [place] [address] [place] [address] Gadiel Majano MD [address] [place] [address] [address] [place] [address] 06/05/2024 8:30 AM RIP TAILER Appointment [facility] S [facility] [address] [place] [phone] Gadiel Majano MD [address] [place] [address] [address] [place] [address] 08/09/2024 4:00 PM CDT Office Visit [facility] [address] [place] [address] Jairo Matute PA [address] [place] [address] [address] [place] [address] 01/23/2025 3:20 PM CDT Office Visit [address] [place] [address] Gadiel Majano MD [address] [place] [phone] 08/03/2025 8:30 AM CDT Office Visit [facility]UROLOG[facility] - [place] - [facility] 5003B [address] [facility] [address] [place] [address] Aliza Lion MD [address] S [facility] [address] [place] [address] documented as of this encounter Visit Diagnoses Not on filedocumented in this encounter Care Teams Tv Technician Relationship Specialty Start Date End Date Gadiel Majano MD [address] [place] [address] [address] [place] [address] PCP - General 02/25/07 documented as of this encounter
--- OUTSIDE RECORDS SUMMARY | 2024-05-11 14:57 | XMS_ITS | Encounter Summary ---
Author Organization [facility] Address [address] [place] [address] Care Team Providers Care Watershed Coordinator Name Role Phone Gadiel Majano MD Primary Care Provider [phone] Reason for Visit * Reason Onset Date Comments Question 11/25/2016 Encounter Details Date Type Department Care Team (Late st Contact Info) Description 11/25/2016 Telephone [facility] Internal Medicine [address] [address] Gadiel Majano MD [address] [place] [phone] Question Social History Tobacco Use Types Packs/Day Years [...] Miscellaneous Notes * Telephone Encounter - Aminata Hammer ANP - 11/25/2016 10:27 AM CDT So the referral was AMB referral which is generic, the referral department must of picked a provider,not me. I didn't not specifically request that group, but it looks like they authorized w/Dr. Marte who would be appropriate for her arm injury * Telephone Encounter - Moy, Erin C - 11/25/2016 9:57 AM CDT Aminata you referred pt to Ortho surg and for the Department you listed To Department [facility]IC [facility] MED [place] MCNULTY??? What is this? Scheduling is confused by what you meant PLEASE ADVISE Pt did not request per scheduling documented in this encounter Plan of Treatment Upcoming Encounters Date Type Department Care Team (Late st Contact Info) Description 05/19/2024 9:00 AM INSTRUCTIONAL DESIGN TECHNOLOGIST Appointment [facility] [address] [place] [address] [place] [phone] Gadiel Majano MD [address] [place] [address] 06/05/2024 8:30 AM INSTRUCTIONAL DESIGN TECHNOLOGIST Appointment [facility] [address] [place] [address] [place] [phone] Gadiel Majano MD [address] [place] [address] 08/09/2024 4:00 PM CDT Office Visit [facility] [place] [address] Jairo Matute PA [address] [place], [place] [phone] 01/23/2025 3:20 PM CDT Office Visit [facility] [place] [address] Gadiel Majano MD [address] [place] [address] 08/03/2025 8:30 AM CDT Office Visit [facility] NEUROLOGY - [place] [facility] - [facility] [address] [facility] [address] [place] [address] Aliza Lion MD [address] [facility] [address] [place] [address] documented as of this encounter Visit Diagnoses Not on filedocumented in this encounter Care Teams Watershed Coordinator Relationship Specialty Start Date End Date Gadiel Majano MD 637 [facility] [address] [place] [phone] PCP - General 02/25/07 documented as of this encounter
--- OUTSIDE RECORDS SUMMARY | 2024-05-11 14:57 | XMS_ITS | Encounter Summary ---
Author Organization [facility] Address [address] [place] [address] Care Team Providers Care Email Marketing Executive Name Role Phone Gadiel Majano MD Primary Care Provider [phone] Encounter Details Date Type Department Care Team (Late Contact Info) Description 09/07/2017 Orders Only [facility] Internal Medicine [address] [address] Gadiel Majano MD [address] [place] [phone] Routine general medical examination at health care facility Social History Tobacco Use [...] (Late Contact Info) Description 05/19/2024 9:00 AM PHP MAGENTO DEVELOPER Appointment [facility] Services EEG [address] [place] [address] [place] [address] Gadiel Majano MD [address] [place] [phone] 06/05/2024 8:30 AM PHP MAGENTO DEVELOPER Appointment [facility] S [facility] [address] [place] [phone] Gadiel Majano MD [address] [place] [address] [address] [place] [address] 08/09/2024 4:00 PM CDT Office Visit [facility] [address] [place] [address] [address] [place] [address] Jairo Matute PA [address] [place] [address] [address] [place] [address] 01/23/2025 3:20 PM CDT Office Visit [address] [place] [address] Gadiel Majano MD [address] [place] [address] [address] [place] [address] 08/03/2025 8:30 AM CDT Office Visit [facility] NEUROLOGY - [place] [facility] - [facility] 5003B [address] [facility] [address] [place] [address] Aliza Lion MD 621 S [facility] [address] [place] [address] documented as of this encounter Visit Diagnoses Diagnosis Routine general medical examination at health care facility Routine general medical examination at a health care facility documented in this encounter Care Teams Email Marketing Executive Relationship Specialty Start Date End Date Gadiel Majano MD [address] [place] [address] [address] [place] [address] PCP - General 02/25/07 documented as of this encounter
--- OUTSIDE RECORDS SUMMARY | 2024-05-11 14:57 | XMS_ITS | Encounter Summary ---
Author Organization [facility] Address [address] [place] [address] Care Team Providers Care Chemical Lab Supervisor Name Role Phone Gadiel Majano MD Primary Care Provider [phone] Reason for Visit * Reason Comments Elbow Pain left Encounter Details Date Type Department Care Team (Latest Contact Info) Description 01/20/2017 11:00 AM CDT Office Visit [facility] Orthopedic Surgery - [address] [place], [place] [phone] [place] [address] [facility] [address] [address] Numbness and tingling in left hand (Primary Dx); Medial epicondylitis of left elbow Social History Tobacco Use Types Packs/Day Years [...] Reading Time Taken Comments Blood Pressure 110/80 01/20/2017 11:18 AM CDT Pulse 76 01/20/2017 11:18 AM CDT Temperature - - Respiratory Rate - - Oxygen Saturation - - Inhaled Oxygen Concentration - - Weight 81.6 kg (180 lb) 01/20/2017 11:18 AM CDT Height 167.6 cm (5' 6 ) 01/20/2017 11:18 AM CDT Body Mass Index 29.05 01/20/2017 11:18 AM CDT documented in this encounter Progress Notes * Eladio Marte MD - 01/20/2017 8:46 PM CDT ORTHO NOTE PATIENT NAME: Trinh Corral CSN: [id number] DATE OF SERVICE: 01/20/2017 Chief Complaint Patient presents with ??? Elbow Pain left History of Present Illness: Subjective: 26 y.o. y/o female presents to the office for Follow-up of left elbow pain. She reports she is doing quite better today. She still notes some pain near the medial epicondyle but the numbness, tingling and shooting pains around the ulnar nerve are largely gone. She has been doing some stretching exercises for this. Past Medical History: Diagnosis Date ??? Enlarged lymph nodes OVER 1 MOS RT-X2 ??? Kyphosis (acquired) (postural) ??? Other general symptoms age 5 or 6 rt kidney, reflux ??? UTI (urinary tract infection) CHRONIC Past Surgical History: Procedure Laterality Date ??? HX TONSILLECTOMY AGE 4 OR 5 ??? HX WISDOM TEETH EXTRACTION AGE 19 X4 ??? HI BX/REMV,LYMPH NODE,DEEP CERV 07/18/2012 CERVICAL LYMPH NODE BIOPSY performed by Ananda Celestin MD at [facility] No current outpatient prescriptions on file. No current facility-administered medications for this visit. Allergies Allergen Reactions ??? Ciprofloxacin Nausea and Vomiting ??? Keflex [Cephalexin] Nausea and Vomiting ??? Macrobid [Nitrofurantoin Monohyd/M-Cryst] Nausea and Vomiting All symptoms are neg except for what is below- noted by patient on 36 point review of systems: Pertinent information contained in the HPI Social History Social History ??? Marital status: Single Spouse name: N/A ??? Number of children: N/A ??? Years of education: N/A Occupational History ??? Not Employed ??? [employer] Social History Main Topics ??? Smoking status: Current Some Day Smoker Packs/day: 0.50 Years: 4.00 Types: Cigarettes ??? Smokeless tobacco: Never Used Comment: one pack for a week ??? Alcohol use 0.5 oz/week 1 Cans of beer per week Comment: SOCIALLY ??? Drug use: No ??? Sexual activity: Yes Partners: Male control/ protection: None Comment: LMP: 07/07/12 Other Topics Concern ??? Not on file Social History Narrative Family History Problem Relation Age of Onset ??? Heart Disease Mother ??? Migraines Mother ??? Cancer Brother Myeloma & Lymphoma ??? Ovarian Cancer Maternal Grandmother ??? Breast Cancer Neg Hx ??? Colon Cancer Neg Hx Objective: BP 110/80 Pulse 76 Ht 5' 6 (1.676 m) Wt 81.6 kg (180 lb) BMI 29.05 kg/m2 WD WN female presents to clinic for evaluation of Chief Complaint Patient presents with ??? Elbow Pain left Alert orientated & cooperative with exam. There is pain noted with palpation over the left medial epicondyle. Pain is reproduced with resisted pronation and a little less with resisted wrist flexion or resisted finger flexion. Sensation is intact distally there is normal capillary refill. She is not having ulnar nerve symptoms today. Imaging X-ray: not indicated. Assessment: Encounter Diagnoses Code Name Primary? R20.0, R20.2 Numbness and tingling in left hand Yes ??? M77.02 Medial epicondylitis of left elbow Plan: We discussed the treatment of medial epicondylitis in the office today. This is an overuse injury of the flexor pronator muscle origin near the medial epicondyle. Microscopic tears are gradually accumulating in this area. The goal is to allow the natural healing process to catch up. Stage I treatment involves activity reduction, use of a counterforce brace, use of anti-inflammatory medication, and stretching exercises. Stage 2 treatment involves a cortisone injection into the medial epicondyles around the flexor pronator muscle origin. Stage III treatment involves the surgicaldebridement should only be done if the pain is chronic and does not respond to more conservative measures. She would prefer stage I treatment and did not want an injection today. If her some stretching exercises and recommended continuing anti-inflammatory medication. I'll follow her in the office if pain gets worse and she wants to consider a cortisone injection. This dictation was completed using [employer]. Archivist Political History variances may occur. documented in this encounter Miscellaneous Notes * Patient Instructions - Eladio Marte MD - 01/20/2017 11:39 AM CDT Images from the original note were not included. [employer]. Golfer's Elbow: Exercises Your Care Instructions Here are some examples of typical rehabilitation exercises for your condition. Start each exercise slowly. Ease off the exercise if you start to have pain. Your doctor or physical therapist will tell you when you can start these exercises and which ones will work best for you. How to do the exercises Wrist extensor stretch 1. Extend your affected arm in front of you and make a fist with your palm facing down. 2. Bend your wrist so that your fist points toward the floor. 3. With your other hand, gently bend your wrist farther until you feel a mild to moderate stretch in your forearm. 4. Hold for at least 15 to 30 seconds. 5. Repeat 2 to 4 times. 6. Repeat steps 1 through 5 with your fingers pointing toward the floor. Forearm extensor stretch 1. Place your affected elbow down at your side, bent at about 90 degrees. Then make a fist with your palm facing down. 2. Keeping your wrist bent, slowly straighten your elbow so your arm is down at your side. Then twist your fist out so your palm is facing out to the side and you feel a stretch. 3. Hold for at least 15 to 30 seconds. 4. Repeat 2 to 4 times. Wrist flexor stretch 1. Extend your affected arm in front of you with your palm facing away from your body. 2. Bend back your wrist, pointing your hand up toward the ceiling. 3. With your other hand, gently bend your wrist farther until you feel a mild to moderate stretch in your forearm. 4. Hold for at least 15 to 30 seconds. 5. Repeat 2 to 4 times. 6. Repeat steps 1 through 5, but this time extend your affected arm in front of you with your palm facing up. Then bend back your wrist, pointing your hand toward the floor. Wrist curls 1. Place your forearm on a table with your hand hanging over the edge of the table, palm up. 2. Place a 1- to 2-pound weight in your hand. This may be a dumbbell, a can of food, or a filled water bottle. 3. Slowly raise and lower the weight while keeping your forearm on the table and your palm facing up. 4. Repeat this motion 8 to 12 times. 5. Switch arms, and do steps 1 through 4. 6. Repeat with your hand facing down toward the floor. Switch arms. Resisted wrist extension 1. Sit leaning forward with your legs slightly spread. Then place your affected forearm on your thigh with your hand and wrist in front of your knee. 2. Grasp one end of an exercise band with your palm down, and step on the other end. 3. Slowly bend your wrist upward for a count of 2, then lower your wrist slowly to a count of 5. 4. Repeat 8 to 12 times. Resisted wrist flexion 1. Sit leaning forward with your legs slightly spread. Then place your affected forearm on your thigh with your hand and wrist in front of your knee. 2. Grasp one end of an exercise band with your palm up, and step on the other end. 3. Slowly bend your wrist upward for a count of 2, then lower your wrist slowly to a count of 5. 4. Repeat 8 to 12 times. Neck stretch to the side 1. This stretch works best if you keep your shoulder down as you lean away from it. To help you remember to do this, start by relaxing your shoulders and lightly holding on to your thighs or your chair. 2. Tilt your head away from your affected elbow and toward your opposite shoulder. For example, if your right elbow is sore, keep your right shoulder down as you lean your head toward your left shoulder. 3. Hold for 15 to 30 seconds. Let the weight of your head stretch your muscles. 4. If you would like a little added stretch, use your hand to gently and steadily pull your head toward your shoulder. For example, if your right elbow is sore, use your left hand to gently pull yourhead toward your left shoulder. 5. Repeat 2 to 4 times. Resisted forearm pronation 1. Sit leaning forward with your legs slightly spread. Then place your affected forearm on your thigh with your hand and wrist in front of your knee. 2. Grasp one end of an exercise band with your palm up, and step on the other end. 3. Keeping your wrist straight, roll your palm inward toward your thigh for a count of 2, then slowly move your wrist back to the starting position to a count of 5. 4. Repeat 8 to 12 times. Resisted supination 1. Sit leaning forward with your legs slightly spread. Then place your affected forearm on your thigh with your hand and wrist in front of your knee. 2. Grasp one end of an exercise band with your palm down, and step on the other end. 3. Keeping your wrist straight, roll your palm outward and away from your thigh for a count of 2, then slowly move your wrist back to the starting position to a count of 5. 4. Repeat 8 to 12 times. Follow-up care is a tejada part of your treatment and safety. Be sure to make and go to all appointments, and call your doctor if you are having problems. It's also a good idea to know your test resultsand keep a list of the medicines you take. Where can you learn more? Go to https://www.S[employer].net/patientEd. Enter H459 in the search box to learn more about Gollorena's Elbow: Exercises. Current as of: October 14, 2015 Content Version: 11.2 ?? 7427-2728 [employer]. Care instructions adapted under license by your healthcare professional. If you have questions about a medical condition or this instruction, always ask your healthcare professional. These instructions may not represent the values of this healthcare organization. [employer] disclaims any warranty or liability for your use of this information. documented in this encounter Plan of Treatment Upcoming Encounters Date Type Department Care Team (Late st Contact Info) Description 05/19/2024 9:00 AM PROFESSOR OF LATIN AMERICAN STUDIES Appointment [facility] EEG [address] [place] [phone] Gadiel Majano MD [address] [place] [phone] 06/05/2024 8:30 AM PROFESSOR OF LATIN AMERICAN STUDIES Appointment [facility] [address] [place] [phone] Gadiel Majano MD [address] [place] [phone] 08/09/2024 4:00 PM CDT Office Visit [address] [place] [address] Jairo Matute PA [address] [place] [address] [address] [place] [phone] 01/23/2025 3:20 PM CDT Office Visit [address] [place] [phone] Gadiel Majano MD [address] [place] [address] [address] [place] [address] 08/03/2025 8:30 AM CDT Office Visit [facility] NEUROLOGY [facility] [address] [facility] [address] [place] [address] Aliza Lion MD [address] [facility] [address] [place] [address] documented as of this encounter Visit Diagnoses Diagnosis Numbness and tingling in left hand- Primary Disturbance of skin sensation Medial epicondylitis of left elbow Medial epicondylitis of elbow documented in this encounter Care Teams Chemical Lab Supervisor Relationship Specialty Start Date End Date Gadiel Majano MD [address] [place] [address] [address] [place] [address] PCP - General 02/25/07 documented as of this encounter
--- OUTSIDE RECORDS SUMMARY | 2024-05-11 14:57 | XMS_ITS | Encounter Summary ---
Author Organization [facility] Address [address] [place] [address] Care Team Providers Care Pack Out Operator Name Role Phone Gadiel Majano MD Primary Care Provider Reason for Referral * Outpatient Services (Routine) - Closed Specialty Diagnoses / Procedures Referred By Josie fitch Referred To Contact Radiology / Cardiology Diagnoses Palpitations Tachycardia Procedures ECHO COMPLETE Gadiel Majaon MD [address] [facility] [address] [place] [address] Located Within [facility] Non Invasive Cardiology [address] [place] [address] Referral ID Status Reason Start Date Expiration Date V isits Requested Visits Authorized [id number] Closed [facility] CTS 09/09/2017 10/24/2017 1 1 Reason for Visit * Auth/Cert Specialty Diagnoses / Procedures Referred By Josie fitch Referred To Contact Radiology [facility] [address] [facility] [address] [place] [address] Referral ID Status Reason Start Date Expiration Date Visits Re quested Visits Authorized [id number] 1 1 Encounter Details Date Type Department Care Team (Latest Contact Info) Description 09/28/2017 1:22 PM CDT - 09/28/2017 11:59 PM CDT Hospital Encounter [facility] Diagnostic Cardiology Services [facility] [address] [facility] [address] [place] [address] Gadiel Majano MD [address] [place] [phone] Discharge Disposition: Home or Self Care Social [...] st Contact Info) Description 05/19/2024 9:00 AM OFFLINE EDITOR Appointment [facility] [address] [place] [phone] Gadiel Majano MD [address] [place], [place] [phone] 06/05/2024 8:30 AM OFFLINE EDITOR Appointment [facility] [address] [place] [phone] Gadiel Majano MD [address] [place], [place] [phone] 08/09/2024 4:00 PM CDT Office Visit [place] [phone] Jairo Matute PA [address] [place] [phone] 01/23/2025 3:20 PM CDT Office Visit [address] [place] [phone] Gadiel Majano MD [address] [place] [phone] 08/03/2025 8:30 AM CDT Office Visit [facility] - [facility] [address] [facility] [address] [place] [address] Aliza Lion MD [address] [facility] [address] [place] [address] documented as of this encounter Procedures Procedure Name Priority Date/Time Associated Diagnosis Comments ECHO COMPLETE Routine 09/28/2017 3:38 PM CDT Palpitations Tachycardia documented in this encounter Results * ECHO COMPLETE (09/28/2017 3:38 PM CDT) EJECTION FRACTION INTERFACE SYSTEM 09/28/2017 2:15 PM CDT Narrative INTERFACE SYSTEM - 09/29/2017 2:18 PM CDT [facility] [address] [place] [address] [email or web address] Transthoracic Echocardiography Patient: ? Trinh Corral MRN: ? [id number] Study ID: ?[id number] Gender: ?F : ? 1990 Age: ? 27 Race: ?CAU Height ? 167.6cm Study Date: ?09/28/2017 Weight: ?83kg Access. #: ? [id number] BP: *Referring Physician:* Gadiel Majano *Ordering Physician:* ??Gadiel Majano Marble Ceiling Installer: Indications: Tachycardia. ??Palpitations. STUDY CONCLUSIONS: SUMMARY: - [...] Prepared and Electronically Authenticated Isiah Strong M.D. ([facility]) [id number] Procedure Note Isiah Strong MD - 09/29/2017 [place] [address] [email or web address] Transthoracic Echocardiography Patient: Trinh Corral Study ID: [id number] Gender: F : 1990 Age: 27 Race: CAU Height 167.6cm Study Date: 09/28/2017 Weight: 83kg Access. #: [id number] BP: *Referring Physician:* Gadile Majano *Ordering Physician:* Gadiel Majano Marble Ceiling Installer: Indications: Tachycardia. Palpitations. STUDY CONCLUSIONS: SUMMARY: - [...] Prepared and Electronically Authenticated Isiah Strong M.D. ([facility] [id number] Gadiel Majano MD ORDERABLES Performing Organization Address City/State/[facility] Co de Phone Number INTERFACE SYSTEM Refer to clinic/hospital department documented in this encounter Visit Diagnoses Diagnosis Palpitations Tachycardia Tachycardia, unspecified documented in this encounter Care Teams Pack Out Operator Relationship Specialty Start Date End Date Gadiel Majano MD [address] [place] [phone] PCP - General 02/25/07 documented as of this encounter
--- OUTSIDE RECORDS SUMMARY | 2024-05-11 14:58 | XMS_ITS | Encounter Summary ---
Author Organization [facility] Address [address] [place] [address] Care Team Providers Care Asic Verification Engineer Name Role Phone Gadiel Majano MD Primary Care Provider [phone] Encounter Details Date Type Department Care Team (Latest Contact Info) Description 12/12/2013 2:05 AM CDT - 12/12/2013 11:59 PM CDT Hospital Encounter [facility] [address] [place] [address] Yesenia Friedman DO [address] [place] [address] [place], [place] [phone] Unsatisfactory cervical cytology smear Discharge Disposition: Home or Self Care Social [...] Sig Dispensed Refills Start Date End Date ibuprofen (MOTRIN) 800 mg tablet 06/03/2013 07/30/2015 ALPRAZolam (XANAX) 0.25 mg Oral tablet Take 1 Tab by mouth 2 times daily as needed for Anxiety. 40 Tab 2 09/09/2011 07/30/2015 documented as of this encounter Plan of Treatment Upcoming Encounters Date Type Department Care Team (Late st Contact Info) Description 05/19/2024 9:00 AM SHOWROOM SALES CONSULTANT Appointment [facility] [address] [place] [phone] [place] [address] Gadiel Majano MD [address] [place] [phone] 06/05/2024 8:30 AM SHOWROOM SALES CONSULTANT Appointment [facility] [address] [place] [address] Gadiel Majano MD [address] [place] [phone] 08/09/2024 4:00 PM CDT Office Visit [address] [phone] Jairo Matute PA [address] [place] [phone] 01/23/2025 3:20 PM CDT Office Visit [address] [phone] Gadiel Majano MD [address] [place] [phone] 08/03/2025 8:30 AM CDT Office Visit [facility] - [place] [facility] - [facility] [address] [place] [address] [place] [address] Aliza Lion MD [address] [place] [phone] documented as of this encounter Procedures Procedure Name Priority Date/Time Associated Diagnosis Comments CERV/VAG CYTOPATH, THIN PREP IMAGR RFLX HPV Routine 12/12/2013 2:31 PM CDT Unsatisfactory cervical cytology smear documented in this encounter Results * CERV/VAG CYTOPATH, THIN PREP IMAGR RFLX HPV (12/12/2013 2:31 PM CDT) PAP INTERP Negative for intraepithelial lesion or malignancy. [facility] Comment: Performed by [facility], [facility] [place] [address] Associate Director Of Sales Pap Comment This Pap test has been evaluated with computer assisted technology. [facility] ADEQUACY: Satisfactory for evaluation. Endocervical/trans formation zone component present. Age and/or menstrual status not provided [facility]OR[facility]ORY SERVICES [facility] CLINICAL INFORMATION Information not provided [facility] SOURCE [employer] [facility] LABORATORY SERVICES [facility] PREV PAP: INFORMATION NOT PROVIDED [facility] CYTOTECHNOLOGI ST: LMT, CT(ASCP) [facility] LABORATORY SERVICES [facility] LAST MENSTRUAL PERIOD INFORMATION NOT PROVIDED [facility] PREV BX: INFORMATION NOT PROVIDED [facility] Endocervical 12/12/2013 2:31 PM CDT 12/12/2013 3:40 PM CDT Comment:ENDOCERVICAL Narrative [facility] - 12/19/2013 6:39 AM CDT ecc Yesenia Friedman DO PATHOLOGY/CYTOLOGY O RDERABLES [facility] CLIA# [id number] [address] [place] [address] documented in this encounter Visit Diagnoses Diagnosis Unsatisfactory cervical cytology smear- Primary documented in this encounter Care Teams Asic Verification Engineer Relationship Specialty Start Date End Date Gadiel Majano MD [address] [place] [address] [address] [place] [address] PCP - General 02/25/07 documented as of this encounter
--- OUTSIDE RECORDS SUMMARY | 2024-05-11 14:58 | XMS_ITS | Encounter Summary ---
Author Organization [facility] Address [address] [place] [address] Care Team Providers Care Tribal Judge Name Role Phone Gadiel Majano MD Primary Care Provider Reason for Visit * Reason Comments Bleeding/Bruising very easily also wan ninfa blood work done Encounter Details Date Type Department Care Team (Late st Contact Info) Description 12/13/2014 2:30 PM CDT Office Visit [facility] Internal Medicine [address] [address] Gadiel Majano MD [address] [place] [phone] Ecchymosis (Primary Dx); Hypoglycemia, unspecified; Routine general medical examination at a health care facility; Abnormal liver function test Social History Tobacco Use Types Packs/Day Years [...] Reading Time Taken Comments Blood Pressure 120/80 12/13/2014 2:35 PM CDT Pulse - - Temperature - - Respiratory Rate - - Oxygen Saturation - - Inhaled Oxygen Concentration - - Weight 70.8 kg (156 lb) 12/13/2014 2:35 PM CDT Height 165.1 cm (5' 5 ) 12/13/2014 2:35 PM CDT Body Mass Index 25.96 12/13/2014 2:35 PM CDT documented in this encounter Progress Notes * Gadiel Majano MD - 12/13/2014 5:12 PM CDT Subjective: Trinh Corral is a 24 y.o. female. Prev visit Notes easy brusing past few weeks occ etoh on weekends No nsaid asa use No pds--with iud No bleeding gums or other Mostly le Does work out smoking Patient Active Problem List Diagnosis Date Noted ??? Mirena 12/11/13 12/11/2013 ??? Recurrent UTI 06/15/2011 ??? Nausea alone 04/05/2011 ??? Hypoglycemia, Unspecified 04/18/2007 ??? Unspecified Backache 03/28/2007 Current Outpatient Prescriptions on File Prior to Visit Medication Sig Dispense Refill ??? ibuprofen (MOTRIN) 800 mg tablet ??? ALPRAZolam (XANAX) 0.25 mg Oral tablet Take 1 Tab by mouth 2 times daily as needed for Anxiety.40 Tab 2 No current facility-administered medications on file prior to visit. Allergies Allergen Reactions ??? Ciprofloxacin Nausea and Vomiting ??? Keflex [Cephalexin] Nausea and Vomiting ??? Macrobid [Nitrofurantoin Monohyd/M-Cryst] Nausea and Vomiting Past Medical History Diagnosis Date ??? Kyphosis (acquired) (postural) ??? Other general symptoms(780.99) age 5 or 6 rt kidney, reflux ??? UTI (urinary tract infection) CHRONIC ??? Enlarged lymph nodes OVER 1 MOS RT-X2 Past Surgical History Procedure Laterality Date ??? Hx wisdom teeth extraction AGE 19 X4 ??? Hx tonsillectomy AGE 4 OR 5 ??? Pr bx/remv,lymph node,deep cerv 07/18/2012 CERVICAL LYMPH NODE BIOPSY performed by Ananda Celestin MD at [facility] OR MA[facility] Family History Problem Relation Age of Onset ??? Heart Disease Mother ??? Migraines Mother ??? Cancer Brother Myeloma & Lymphoma ??? Breast Cancer Neg Hx ??? Ovarian Cancer Maternal Grandmother ??? Colon Cancer Neg Hx History Substance Use Topics ??? Smoking status: Current Some Day Smoker -- 0.50 packs/day for 4 years Types: Cigarettes ??? Smokeless tobacco: Never Used Comment: one pack for a week ??? Alcohol Use: 0.5 oz/week 1 Cans of beer per week Comment: SOCIALLY Review of Systems: During the review of systems, the following significant history is obtained from the patient: Constitutional: denies fevers, chills, sweats, fatigue, malaise, anorexia, weight loss Eye: denies visual disturbance,somepain moving eyes side to side Ear, Nose, Mouth, Throat: denies hearing loss, ear issues, nasal congestion, neck mass, oral issues, hoarse voice Respiratory: denies cough, dyspnea, stridor, wheeze Cardiovascular: denies chest pain, exertional chest pressure/discomfort, fatigue, nausea, syncope, shortness of breath Gastrointestinal: denies abdominal pain, change in bowel habits, constipation, diarrhea, dsyphagia,reflux symptoms, vomiting Exam/Objective: exam: Blood pressure 120/80, height 5' 5 (1.651 m), weight 156 lb (70.761 kg), not currently . General appearance: active, alert, cooperative, no distress, social Head: Normocephalic, without obvious abnormality, atraumatic Eyes: conjunctivae/corneas clear. PERRLA, EOM's intact Ears: normal TM's and external ear canals AU Nose: Nares normal. Septum midline. Mucosa normal. No drainage or sinus tenderness. Throat: Lips, mucosa, and tongue normal. Teeth and gums normal Neck: supple, symmetrical, trachea midline, no adenopathy, thyroid: not enlarged, symmetric, no right lat ln noted soft, mobile, nontender Back: symmetric, non tender mild flank tender left Lungs: breath sounds equal, clear to auscultation bilaterally, no retractions, no stridor, normal respiratory effort Heart: regular rate and rhythm, S1, S2 normal, no murmur, click, rub or gallop Abdomen: soft, non-tender. Bowel sounds normal. No masses, no organomegaly Extremities: extremities normal, atraumatic, no cyanosis or edemaPulses: 2+ and symmetric Skin: Skin color, texture, turgor normal. Bruising thighs le Assessment and Plan: ASSESSMENT: ICD-9-CM ICD-10-CM 1. Ecchymosis 459.89 R58 CBC WITH DIFFERENTIAL COMPREHENSIVE METABOLIC PANEL PROTIME-INR PTT [facility]ON [facility] FACTOR ASSAY 2. Hypoglycemia, unspecified 251.2 E16.2 3. Routine general medical examination at a health care facility V70.0 Z00.00 TSH 4. Abnormal liver function test 790.6 R79.89 HEPATITIS C ANTIBODY FERRITIN BRONSON SCREEN W/REFLEX TOBACCO COUNSELING She was counseled to discontinue tobacco use. Pt declines med at this point Check lab Advise fu natural remedy consultant Diet and exercise reviewed PLAN: Orders Placed This Encounter ??? CBC WITH DIFFERENTIAL ??? COMPREHENSIVE METABOLIC PANEL ??? TSH ??? PROTIME-INR ??? PTT ??? [facility] FACTOR ASSAY ??? HEPATITIS C ANTIBODY ??? FERRITIN ??? BRONSON SCREEN W/REFLEX Appropriate medications prescribed Appropriate patient instructions provided Follow-up as I have indicated. Medications and options explained to include common side effects. Understanding of medications, course, diagnosis, and expectations were expressed by patient/guardian. documented in this encounter Plan of Treatment Upcoming Encounters Date Type Department Care Team (Late st Contact Info) Description 05/19/2024 9:00 AM CAREER TECHNICAL EDUCATION TEACHER Appointment [facility] EEG S [facility] [address] [place] [phone] Gadiel Majano MD [address] [place] [address] 06/05/2024 8:30 AM CAREER TECHNICAL EDUCATION TEACHER Appointment [facility] S [facility] [address] [place] [address] Gadiel Majano MD [address] [place] [address] 08/09/2024 4:00 PM CDT Office Visit [facility] [place] [address] Jairo Matute PA [address] [place], [place] [phone] 01/23/2025 3:20 PM CDT Office Visit [facility] Primary Care [facility] [address] [facility] [address] [place] [address] Gadiel Majano MD [address] [facility] [address] [place] [address] 08/03/2025 8:30 AM CDT Office Visit [facility] NEUROLOGY - [place] [address] [facility] [place] [address] [place] [address] Aliza Lion MD [address] [facility] [address] [place] [address] documented as of this encounter Results * BRONSON SCREEN W/REFLEX (12/13/2014 3:20 PM CDT) BRONSON <1:40 <1:40 (Negative ) 12/17/2014 2:52 PM CDT [facility] Comment: No Titer performed, BRONSON screen is negative. Test Performed by: [place] [address] Composite Laminator: Altagracia Alcantar, Ph.D. Blood specimen (specimen) Venipuncture - Lab Collect / Unknown 12/13/2014 3:20 PM CDT 12/13/2014 3:20 PM CDT Gadiel Majano MD CHEMISTRY ORDERABLES [facility] * FERRITIN (12/13/2014 3:20 PM CDT) Pathologist [facility] FERRITIN 42.3 13.0 - 150.0 ng/mL 12/13/2014 10:07 PM CDT [facility] E-Blink [facility] Blood Venipuncture - L ab Collect / Unknown 12/13/2014 3:20 PM CDT 12/13/2014 3:20 PM CDT Gadiel Majano MD CHEMISTRY ORDERABLES [facility]# [id number] [address] [place] [address] * HEPATITIS C ANTIBODY (12/13/2014 3:20 PM CDT) Pathologist [facility] [place] HEPATITIS C AB Non-reacti ve Non-react gloria 12/13/2014 9:30 PM CDT [facility] Comment: If a patient is known to be at high risk for HCV infection, or is symptomatic, and the physician's suspicion of HCV infection is high, HCV RNA testing is often employed and is of diagnostic value, even after an initial negative anti-HCV test result. Signal to cutoff index is <1.00. Blood Venipuncture - L ab Collect / Unknown 12/13/2014 3:20 PM CDT 12/13/2014 3:20 PM CDT Gadiel Majano MD CHEMISTRY ORDERABLES Performing Organization Address [facility] Co de Phone Number [facility]# [id number] [address] [place] [address] * [facility] FACTOR ASSAY (12/13/2014 3:20 PM CDT) [facility] VON [facility]IL[facility] FACTOR ACTIVITY 103 55 - 200 % 12/14/2014 4:07 PM CDT [facility] Comment: Test Performed by: [address] [address] Composite Laminator: Quincy Rahman II, M.D., Ph.D. Blood specimen (specimen) Venipuncture - Lab Collect / Unknown 12/13/2014 3:20 PM CDT 12/13/2014 3:20 PM CDT Gadiel Majano MD CHEMISTRY ORDERABLES Performing Organization Address City/[facility]/ZIP Co de Phone Number [facility] * PTT (12/13/2014 3:20 PM CDT) [facility] PTT 32.5 24.4 - 36.4 seconds 12/13/2014 9:00 PM CDT [facility] Comment: PTT Therapeutic Range: Heparin Level ? PTT (seconds) <0.10 units/mL ? <53 0.10 - 0.30 units/mL ? 53 - 67 0.30 - 0.70 units/mL* ?67 - 95* 0.70 - 1.00 units/mL ? 95 - 116 *corresponds to therapeutic range for unfractionated heparin Blood Venipuncture - L ab Collect / Unknown 12/13/2014 3:20 PM CDT 12/13/2014 3:20 PM CDT Gadiel Majano MD HEMATOLOGY ORDERABLE S Performing Organization Address City/State/[facility] Co de Phone Number [facility]# [id number] [address] [place] [address] * PROTIME-INR (12/13/2014 3:20 PM CDT) [facility] PROTIME 13.2 12.7 - 15.1 Seconds 12/13/2014 8:59 PM CDT [facility] INR 1.0 0.9 - 1.1 12/13/2014 8:59 PM CDT [facility] Comment: INR Therapeutic Range: Adult: ?? 2.0 - 3.0 for pulmonary embolism or prophylaxis against venous ?thrombosis or systemic embolization. 2.0 - 3.0 for patients with tissue heart valves. 2.5 - 3.5 for patients with mechanical heart valves or post MS. Pediatric ??(12 years and under): 1.5 - 3.0 Although the target range in children is not well established, ?INR values of 1.5 - 3.0 are recommended for most patients. ?Higher values have been used in children with prosthetic ?cardiac valves and hereditary clotting disorders. (<3 days) therapeutic ranges have not been established. Blood Venipuncture - L ab Collect / Unknown 12/13/2014 3:20 PM CDT 12/13/2014 3:20 PM CDT Gadiel Majano MD HEMATOLOGY ORDERABLE S Performing Organization Address [facility] Co de Phone Number [facility] E-Blink [facility]# [id number] [address] [facility] [place] [address] * TSH (12/13/2014 3:20 PM CDT) Pathologist [facility] TSH 1.01 0.27 - 4.20 uIU/mL 12/13/2014 10:07 PM CDT [facility] SERVICES [facility] Blood Venipuncture - L ab Collect / Unknown 12/13/2014 3:20 PM CDT 12/13/2014 3:20 PM CDT Gadiel Majano MD CHEMISTRY ORDERABLES Performing Organization Address [facility] Co de Phone Number [facility]# [id number] [address] [place] [address] [place] [address] * COMPREHENSIVE METABOLIC PANEL (12/13/2014 3:20 PM CDT) Pathologist [facility] SODIUM 139 136 - 145 mmol/L 12/13/2014 9:55 PM CDT [facility] POTASSIUM 4.1 3.5 - 5.0 mmol/L 12/13/2014 9:55 PM CDT [facility] CHLORIDE 100 98 - 107 mmol/L 12/13/2014 9:55 PM CDT [facility] CO2 25 22 - 29 mmol/L 12/13/2014 9:55 PM [facility] CALCIUM 9.7 8.6 - 10.2 mg/dL 12/13/2014 9:55 PM [facility] BUN 9 6 - 20 mg/dL 12/13/2014 9:55 PM [facility] [place] CREATININE 0.71 0.51 - 0.95 mg/dL 12/13/2014 9:55 PM [facility] [place] GLUCOSE 92 79 - 99 mg/dL 12/13/2014 9:55 PM [facility] TOTAL PROTEIN 7.9 6.7 - 8.6 g/dL 12/13/2014 9:55 PM [facility] [place] ALBUMIN 5.0 3.5 - 5.2 g/dL 12/13/2014 9:55 PM [facility] BILIRUBIN TOTAL 0.3 0.3 - 1.2 mg/dL 12/13/2014 9:55 PM [facility] ALKALINE PHOSPHATASE 92 35 - 104 U/L 12/13/2014 9:55 PM [facility] AST 25 <33 U/L 12/13/2014 9:55 PM [facility] ALT 11 <34 U/L 12/13/2014 9:55 PM [facility] GFR >60 >=60 mL/min/1.7 3 sq meter 12/13/2014 9:55 PM [facility] Comment: eGFR has not been validated for [...] GFR, >60 >=60 mL/min/1.7 3 sq meter 12/13/2014 9:55 PM CDT [facility] - [facility] ANION GAP 14 8 - 16 mmol/L 12/13/2014 9:55 PM CDT [facility] - [facility] Blood Venipuncture - L ab Collect / Unknown 12/13/2014 3:20 PM CDT 12/13/2014 3:20 PM CDT Gadiel Majano MD CHEMISTRY ORDERABLES [facility]ORY SERVICES [facility] CLIA# [id number] [address] [facility] [place] [address] * (ABNORMAL) CBC WITH DIFFERENTIAL (12/13/2014 3:20 PM CDT) WBC 10.1(H) 4.0 - 9.8 K/uL 12/13/2014 9:07 PM CDT [facility] RBC 4.45 3.90 - 4.90 M/uL 12/13/2014 9:07 PM CDT [facility] HEMOGLOBIN 13.8 11.8 - 14.8 g/dL 12/13/2014 9:07 PM CDT [facility] HEMATOCRIT 42.5 35.5 - 44.0 % 12/13/2014 9:07 PM T [facility] MCV 95.5 82.0 - 99.0 fL 12/13/2014 9:07 PM CDT [facility] MCH 31.0 27.2 - 32.6 pg 12/13/2014 9:07 PM CDT [facility] MCHC 32.5 30.0 - 36.0 g/dL 12/13/2014 9:07 PM CDT [facility] RDW 14.5 11.5 - 14.5 % 12/13/2014 9:07 PM CDT [facility] RDW-STDEV 51.0(H) 37.1 - 48.7 fL 12/13/2014 9:07 PM CDT [facility] PLATELETS 254 140 - 350 K/uL 12/13/2014 9:07 PM CDT [facility] MPV 11.9 9.3 - 12.4 fL 12/13/2014 9:07 PM CDT [facility] NEUTROPHILS 66 45 - 70 % 12/13/2014 9:07 PM CDT [facility] [place] LYMPHOCYTES 22 16 - 45 % 12/13/2014 9:07 PM CDT [facility] MONOCYTES 10 3 - 13 % 12/13/2014 9:07 PM CDT [facility] EOSINOPHILS 2 <7 % 12/13/2014 9:07 PM CDT [facility] BASOPHILS 0 <3 % 12/13/2014 9:07 PM CDT [facility] NEUTROPHIL ABSOLUTE 6.74 1.90 - 7.00 K/uL 12/13/2014 9:07 PM CDT [facility] LYMPHOCYTE ABSOLUTE 2.23 0.70 - 4.50 K/uL 12/13/2014 9:07 PM CDT [facility] MONOCYTE ABSOLUTE 0.97 0.10 - 1.30 K/uL 12/13/2014 9:07 PM CDT [facility] EOSINOPHIL ABSOLUTE 0.18 <0.70 K/uL 12/13/2014 9:07 PM CDT [facility] BASOPHILS ABSOLUTE 0.02 <0.30 K/uL 12/13/2014 9:07 PM CDT [facility] Blood Venipuncture - L ab Collect / Unknown 12/13/2014 3:20 PM CDT 12/13/2014 3:20 PM CDT Gadiel Majano MD HEMATOLOGY ORDERABLE S [facility] [id number] [address] [facility] [place] [address] documented in this encounter Visit Diagnoses Diagnosis Ecchymosis- Primary Other specified circulatory system disorders Hypoglycemia, unspecified Routine general medical examination at a health care facility Abnormal liver function test Other abnormal blood chemistry documented in this encounter Care Teams Tribal Judge Relationship Specialty Start Date End Date Gadiel Majano MD [address] [place] [phone] PCP - General 02/25/07 documented as of this encounter
--- OUTSIDE RECORDS SUMMARY | 2024-05-11 14:58 | XMS_ITS | Encounter Summary ---
Author Organization [facility] Address [address] [place] [address] Care Team Providers Care Machine Assembler For Puller Over Name Role Phone Gadiel Majano MD Primary Care Provider [phone] Encounter Details Date Type Department Care Team (Late Contact Info) Description 03/10/2013 Orders Only [facility] Internal Medicine [address] [address] Gadiel Majano MD [address] [place] [address] Foot pain Social History Tobacco Use Types Packs/Day Years [...] (Late Contact Info) Description 05/19/2024 9:[address] TECHNICIAN Appointment [facility] Support Services EEG [place] [address] [place] [address] Gadiel Majano MD [address] [place] [address] 06/05/2024 8:[address] TECHNICIAN Appointment [facility] MRI [place] [address] [place] [address] Gadiel Majano MD [address] [place] [address] [address] [place] [address] 08/09/2024 4:00 PM CDT Office Visit [facility] [address] [place] [address] Jairo Matute, LISA [address] [place] [address] [address] [place] [phone] 01/23/2025 3:20 PM CDT Office Visit [facility] [address] [place] [phone] Gadiel Majano MD [address] [place] [address] [address] [place] [address] 08/03/2025 8:30 AM CDT Office Visit [facility] NEUROLOGY - [facility] [address] [facility] [address] [place] [address] Aliza Lion MD [address] [facility] [address] [place] [address] documented as of this encounter Procedures Procedure Name Priority Date/Time Associated Diagnosis Comments XR FOOT 3+ VW LEFT Routine 03/08/2013 Foot pain documented in this encounter Results * XR FOOT 3+ VW LEFT (03/08/2013) Anatomical Region Laterality Modality Ankle / Foot Other Gadiel Majano MD DIAGNOSTIC IMAGING O RDERABLES documented in this encounter Visit Diagnoses Diagnosis Foot pain Pain in limb documented in this encounter Care Teams Machine Assembler For Puller Over Relationship Specialty Start Date End Date Gadiel Majano MD [address] [place] [address] [address] [place] [address] PCP - General 02/25/07 documented as of this encounter
--- OUTSIDE RECORDS SUMMARY | 2024-05-11 14:58 | XMS_ITS | Encounter Summary ---
Author Organization [facility] Address [address] [place] [address] Care Team Providers Care Patient Safety Attendant Name Role Phone Gadiel Majano MD Primary Care Provider [phone] Encounter Details Date Type Department Care Team (Latest Contact Info) Description 10/13/2013 6:35 PM CDT - 10/13/2013 11:59 PM CDT Hospital Encounter [facility] Laboratory Support Services [facility] [address] [place] [address] Yesenia Friedman DO [address] [facility] [address] [place] [address] Discharge Disposition: Home or Self Care Social [...] Sig Dispensed Refills Start Date End Date NUVARING 0.12-0.015 mg/24 hr Ring INSERT 1 RING INTO VAGINA AND LEAVE IN FOR 3 WEEKS REMOVE FOR 1 WEEK THEN REPEAT 3 Device 3 08/07/2013 12/11/2013 ibuprofen (MOTRIN) 800 mg tablet 06/03/2013 07/30/2015 ALPRAZolam (XANAX) 0.25 mg Oral tablet Take 1 Tab by mouth 2 times daily as needed for Anxiety. 40 Tab 2 09/09/2011 07/30/2015 documented as of this encounter Plan of Treatment Upcoming Encounters Date Type Department Care Team (Late st Contact Info) Description 05/19/2024 9:00 AM LEAD GENERATION MARKETING MANAGER Appointment [facility] EEG S [facility] [address] [phone] Gadiel Majano MD [address] [place] [phone] 06/05/2024 8:30 AM LEAD GENERATION MARKETING MANAGER Appointment [facility] S [facility] [address] [place] [address] Gadiel Majano MD [address] [place] [phone] 08/09/2024 4:00 PM CDT Office Visit [facility] [address] [phone] Jairo Matute PA [address] [place] [phone] 01/23/2025 3:20 PM CDT Office Visit [address] [phone] Gadiel Majano MD [address] [place] [phone] 08/03/2025 8:30 AM CDT Office Visit [facility] NEUROLOGY - [place] [address] [facility] [address] [place] [address] Aliza Lion MD [address] [facility] [address] [place] [address] documented as of this encounter Procedures Procedure Name Priority Date/Time Associated Diagnosis Comments CHLAMYDIA AND GC, PAP VIAL Routine 10/13/2013 6:36 PM CDT Screening examination for venereal disease CERV/VAG CYTOPATH, THIN PREP IMAGR RFLX HPV Routine 10/13/2013 2:41 PM CDT Routine gynecological examination documented in this encounter Results * CHLAMYDIA AND GC, PAP VIAL (10/13/2013 6:36 PM CDT) C TRAC RNA NOT DETECTED NOT DETECTED [facility] NEISSERIA GONORRHOEAE RNA NOT DETECTED NOT DETECTED [facility] GC AND CHLAMYDIA PROBE COMMENT See Result Comment [facility] Comment: This test was performed using the APTIMA COMBO2 Assay ([employer] The analytical performance characteristics of this assay, when used to test SurePath specimens have been determined by [facility]. ? Lab test performed by: [facility] [address] [place] [address] ELVIS CARRILLO MD Endocervical 10/13/2013 6:36 PM CDT 10/13/2013 9:23 PM CDT Comment:ENDOCERVICAL Narrative [facility] - 10/18/2013 8:48 AM CDT ecc Yesenia Friedman DO BODY FLUIDS AND STOO LS COM [facility] CLIA# [id number] [address] [place] [address] [place] [address] * CERV/VAG CYTOPATH, THIN PREP IMAGR RFLX HPV (10/13/2013 2:41 PM CDT) PAP INTERP Unable to provide interpretation due to unsatisfactory specimen adequacy. [facility] Comment: Performed by [facility], [address] [place] [address] Cardiopulmonary Supervisor Pap Comment This case could not be evaluated with computer assisted technology. The slide was manually screened according to routine procedures. [facility] ADEQUACY: Specimen processed and examined, but unsatisfactory for evaluation due to an insufficient number of squamous cells. [facility] CLINICAL INFORMATION [facility]OR[facility] SERVICES [facility] SOURCE Endocervix [facility] PREV PAP: [id number] [facility] CYTOTECHNOLOGI ST: PCM, CT(ASCP) [facility]OR[facility] SERVICES [facility] REVIEW CYTOTECHNOLOGI ST: MAF, CT(ASCP) [facility]OR[facility] SERVICES [facility] LAST MENSTRUAL PERIOD Information not provided [facility] PREV BX: Information not provided [facility] Endocervical 10/13/2013 2:41 PM CDT 10/13/2013 9:23 PM CDT Comment:ENDOCERVICAL Narrative [facility] - 10/23/2013 8:23 AM CDT eccClinical History->Healthy Previous Pap Date->10/03/12 Yesenia Friedman DO PATHOLOGY/CYTOLOGY O RDERABLES [facility] CLIA# [id number] [address] [place] [address] documented in this encounter Visit Diagnoses Diagnosis Routine gynecological examination Screening examination for venereal disease documented in this encounter Care Teams Patient Safety Attendant Relationship Specialty Start Date End Date Gadiel Majano MD [address] [place] [phone] PCP - General 02/25/07 documented as of this encounter
--- OUTSIDE RECORDS SUMMARY | 2024-05-11 14:58 | XMS_ITS | Encounter Summary ---
Author Organization [facility] Address [address] [place] [address] Care Team Providers Care Third Rail Installer Name Role Phone Gadiel Majano MD Primary Care Provider [phone] Reason for Visit * Reason Comments Medication Refill Encounter Details Date Type Department Care Team (Late st Contact Info) Description 08/07/2013 Refill [facility] MARINA PORTER - Medical [address] [place] [address] Yesenia Friedman DO [address] [facility] [address] [place] [address] Social History Tobacco Use Types Packs/Day [...] encounter Miscellaneous Notes * Telephone Encounter - Sweta Gallardo - 08/07/2013 12:19 PM CDT LAST SEEN 06/19/13 documented in this encounter Plan of Treatment Upcoming Encounters Date Type Department Care Team (Late Contact Info) Description 05/19/2024 9:00 AM GLOBAL CEO Appointment [facility] EEG S [facility] [address] [place] [address] Gadiel Majano MD [address] [place] [address] [address] [place] [address] 06/05/2024 8:30 AM GLOBAL CEO Appointment [facility] S [facility] [address] [phone] Gadiel Majano MD [address] [place] [address] [address] [place] [address] 08/09/2024 4:00 PM CDT Office Visit [facility] Care [address] [place] [address] Jairo Matute PA [address] [place] [address] [address] [place] [address] 01/23/2025 3:20 PM CDT Office Visit [address] [place] [address] Gadiel Majano MD [address] [place] [phone] 08/03/2025 8:30 AM CDT Office Visit [facility] NEUROLOGY - [place] - [facility] [address] [facility] [address] [place] [address] Aliza Lion MD [address] [facility] [address] [place] [address] documented as of this encounter Visit Diagnoses Not on filedocumented in this encounter Care Teams Third Rail Installer Relationship Specialty Start Date End Date Gadiel Majano MD [address] [place] [address] [address] [place] [address] PCP - General 02/25/07 documented as of this encounter
--- OUTSIDE RECORDS SUMMARY | 2024-05-11 14:58 | XMS_ITS | Encounter Summary ---
Author Organization [facility] Address 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 Negative preg test. Encounter Details Date Type Department Care Team (Late st Contact Info) Description 12/11/2013 2:10 PM CDT Office Visit [facility] IRONWORKER MACHINE OPERATOR - Medical [address] [phone] Yesenia Friedman DO [address] [facility] [address] [place] [address] Negative test (Primary Dx); Unsatisfactory cervical Papanicolaou smear; Contraception; Mirena 12/11/13 Social History Tobacco Use Types Packs/Day Years [...] Sign Reading Time Taken Comments Blood Pressure 120/68 12/11/2013 2:03 PM CDT Pulse - - Temperature - - Respiratory Rate - - Oxygen Saturation - - Inhaled Oxygen Concentration - - Weight 73.9 kg (163 lb) 12/11/2013 2:03 PM CDT Height 165.1 cm (5' 5 ) 12/11/2013 2:03 PM CDT Body Mass Index 27.12 12/11/2013 2:03 PM CDT documented in this encounter Progress Notes * Yesenia Friedman DO - 12/11/2013 4:18 PM CDT Trinh Corral is a 23 y.o. here today for office visit 1. Repeat pap due to unsatisfactory pap smear - pap obtained 2. mirena placement. - see procedure note Yesenia Friedman DO documented in this encounter Procedure Notes * Yesenia Friedman DO - 12/11/2013 4:19 PM CDTAssociated Order(s): INSERT INTRAUTERINE DEVICE Procedure(s): OK INSERTION INTRAUTERINE DEVICE IUD; OK LEVONORGESTREL IMPLANT SYS Pre-Procedure Diagnose(s): Contraception Trinh Corral is a 23 y.o. yo female who presents today for Mirena IUD placement. . test was negative. The risks, benefits and indications were discussed. Alternative methods of contraception were discussed at a previous visit. The patient was informed that she may experience irregular vaginal bleeding during the first 3-6 months following insertion. The patient understands that the Mirena IUS does not protect against STDs. Questions were answered and informed consent was obtained. With the patient in dorsal lithotomy position, a speculum was placed and the cervix was cleansed with betadine. A tenaculum was attached to the anterior lip of the cervix and the uterus was gently sounded to 7 cm. The Mirena insertion tube was introduced through the cervix until the flange was approximately 1.5-2 cm from the external cervical os and the device was deployed. The front desk representative was then gently advanced to place the Mirena in the fundal position. The insertion tube was withdrawn and thestrings were cut to the appropriate length. The tenaculum was removed, and the tenaculum sites werehemostatic. There were no complications and the patient tolerated the procedure well. The patient was instructed that she may experience vaginal bleeding and mild cramping after insertion. She may take ibuprofen or acetaminophen for discomfort. She should call the office is she experiences severe pain, heavy vaginal bleeding, foul-smelling discharge or fever. Written information was provided. She will return in 4 weeks for an IUD check to assess the string location. Yesenia Friedman DO documented in this encounter Plan of Treatment Upcoming Encounters Date Type Department Care Team (Late st Contact Info) Description 05/19/2024 9:00 AM TERMITE EXTERMINATOR Appointment [facility] S [facility] [address] [phone] Gadiel Majano MD [address] [place] [phone] 06/05/2024 8:30 AM TERMITE EXTERMINATOR Appointment [facility] S [facility] [address] [place] [phone] Gadiel Majano MD [address] [place], [place] [phone] 08/09/2024 4:00 PM CDT Office Visit [address] [phone] Jairo Matute PA [address] [place] [phone] 01/23/2025 3:20 PM CDT Office Visit [facility] [place] [phone] Gadiel Majano MD [address] [place] [phone] 08/03/2025 8:30 AM CDT Office Visit [facility] NEUROLOGY - [place] - [place] [address] [facility] [address] [place] [phone] Aliza Lion MD [address] [facility] [address] [place] [address] Scheduled Orders Name Type Priority Associated Diagnoses Orde r Schedule CERV/VAG CYTOPATH, THIN PREP IMAGR RFLX HPV Lab Routine Unsatisfactory cervical Papanicolaou smear Ordered: 12/11/2013 documented as of this encounter Procedures Procedure Name Priority Date/Time Associated Diagnosis Comments OK LEVONORGESTREL IMPLANT SYS Routine 12/11/2013 4:20 PM CDT Contraception OK INSERTION INTRAUTERINE DEVICE IUD Routine 12/11/2013 4:20 PM CDT Contraception POC , URINE Routine 12/11/2013 2:17 PM CDT Negative test documented in this encounter Results * OK INSERTION INTRAUTERINE DEVICE IUD, OK LEVONORGESTREL IMPLANT SYS (12/11/2013 4:20 PM CDT) [facility] - 12/11/2013 4:20 PM CDT Yesenia Friedman, DO ? 12/11/2013 ??4:20 PM Trinh Corral is a 23 y.o. yo female who presents today for Mirena IUD placement. ??. ?? test was negative. The risks, benefits and indications were discussed. ??Alternative methods of contraception were discussed at a previous visit. ??The patient was informed that she may experience irregular vaginal bleeding during the first 3-6 months following insertion. ??The patient understands that the Mirena IUS does not protect against STDs. ??Questions were answered and informed consent was obtained. With the patient in dorsal lithotomy position, a speculum was placed and the cervix was cleansed with betadine. ??A tenaculum was attached to the anterior lip of the cervix and the uterus was gently sounded to 7 cm. ??The Mirena insertion tube was introduced through the cervix until the flange was approximately 1.5-2 cm from the external cervical os and the device was deployed. ??The front desk representative was then gently advanced to place the Mirena in the fundal position. ??The insertion tube was withdrawn and the strings were cut to the appropriate length. ??The tenaculum was removed, and the tenaculum sites were hemostatic. ??There were no complications and the patient tolerated the procedure well. The patient was instructed that she may experience vaginal bleeding and mild cramping after insertion. ??She may take ibuprofen or acetaminophen for discomfort. ??She should call the office is she experiences severe pain, heavy vaginal bleeding, foul-smelling discharge or fever. ??Written information was provided. ??She will return in 4 weeks for an IUD check to assess the string location. Yesenia Friedman DO Procedure Note Yesenia Friedman DO - 12/11/2013 4:19 PM CDT Trinh Corral is a 23 y.o. yo female who presents today for MirenaIUD placement. . test was negative. The risks, benefits and indications were discussed. Alternative methodsof contraception were discussed at a previous visit. The patient wasinformed that she may experience irregular vaginal bleeding during thefirst 3-6 months following insertion. The patient understands that theMirena IUS does not protect against STDs. Questions were answered andinformed consent was obtained. With the patient in dorsal lithotomy position, a speculum was placed andthe cervix was cleansed with betadine. A tenaculum was attached to theanterior lip of the cervix and the uterus was gently sounded to 7 cm. TheMirena insertion tube was introduced through the cervix until the flangewas approximately 1.5-2 cm from the external cervical os and the devicewas deployed. The front desk representative was then gently advanced to place the Mirenain the fundal position. The insertion tube was withdrawn and the stringswere cut to the appropriate length. The tenaculum was removed, and thetenaculum sites were hemostatic. There were no complications and thepatient tolerated the procedure well. The patient was instructed that she may experience vaginal bleeding andmild cramping after insertion. She may take ibuprofen or acetaminophenfor discomfort. She should call the office is she experiences severepain, heavy vaginal bleeding, foul- smelling discharge or fever. Writteninformation was provided. She will return in 4 weeks for an IUD check toassess the string location. Yseenia Friedman DO Yesenia Friedman DO PROCEDURE/MINOR SURG ICAL ORDERABLES [facility] * POC , URINE (12/11/2013 2:17 PM CDT) HCG QUAL URINE Negative [facility] , URINE POC negative [facility] SPECIFIC GRAVITY UA 1.003 - 1.035 [facility] HCG QUAL URINE COMMENT [facility] Urine specimen (specimen) 12/11/2013 2:17 PM CDT Yesenia Friedman DO POINT OF CARE TESTIN G [facility] documented in this encounter Visit Diagnoses Diagnosis Negative test- Primary examination or test, negative result Unsatisfactory cervical Papanicolaou smear Unsatisfactory cervical cytology smear Contraception Unspecified contraceptive management Mirena 12/11/13 Presence of intrauterine contraceptive device documented in this encounter Care Teams Show Operations Supervisor Relationship Specialty Start Date End Date Gadiel Majano MD [address] [place] [phone] PCP - General 02/25/07 documented as of this encounter
--- OUTSIDE RECORDS SUMMARY | 2024-05-11 14:58 | XMS_ITS | Encounter Summary ---
Author Organization [facility] Address [address] [place] [address] Care Team Providers Care Radarman Name Role Phone Gadiel Majano MD Primary Care Provider [phone] Reason for Visit * Reason Comments Well Woman Exam Encounter Details Date Type Department Care Team (Latest Contact Info) Description 10/13/2013 3:00 PM CDT Office Visit [facility] AIRCRAFT RIGGING AND CONTROLS MECHANIC - Medical [place] [address] [address] Yesenia Friedman DO [address] [facility] [address] [place] [address] Routine gynecological examination (Primary Dx); Screening examination for venereal disease Social History Tobacco Use Types Packs/Day Years [...] Sign Reading Time Taken Comments Blood Pressure 102/70 10/13/2013 2:47 PM CDT Pulse - - Temperature - - Respiratory Rate - - Oxygen Saturation - - Inhaled Oxygen Concentration - - Weight 72.6 kg (160 lb) 10/13/2013 2:47 PM CDT Height 165.1 cm (5' 5 ) 10/13/2013 2:47 PM CDT Body Mass Index 26.63 10/13/2013 2:47 PM CDT documented in this encounter Progress Notes * FriedmanYesenia - 10/17/2013 9:28 PM CDT CC: Well-Woman Exam HPI: Trinh Corral is a 23 y.o. who presents today for her annual well- woman exam. Currently using nuvaring. Interested in other options. Reports she is having irregular bleeding and severe cramping with the nuvaring. flavor extractor History: Medical History: UTIs Surgical History: Tonsillectomy Lymph node removed Social History: Denies tobacco, alcohol, or illicit drugs. Medications: Current Outpatient Prescriptions on File Prior to Visit Medication Sig Dispense Refill ??? NUVARING 0.12-0.015 mg/24 hr Ring INSERT 1 RING INTO VAGINA AND LEAVE IN FOR 3 WEEKS REMOVE FOR1 WEEK THEN REPEAT 3 Device 3 ??? ibuprofen (MOTRIN) 800 mg tablet ??? ALPRAZolam (XANAX) 0.25 mg Oral tablet Take 1 Tab by mouth 2 times daily as needed for Anxiety.40 Tab 2 No current facility-administered medications on file prior to visit. Allergies: Allergies Allergen Reactions ??? Ciprofloxacin Nausea and Vomiting ??? Keflex (Cephalexin) Nausea and Vomiting ??? Macrobid (Nitrofurantoin Monohyd/M-Cryst) Nausea and Vomiting Review of Systems: As above. Denies nausea, vomiting, chest pain, shortness of breath, headache, bowel or bladder complaints, abdominal pain, or unintentional changes in weight. Physical Exam: Filed Vitals: 10/13/13 1447 BP: 102/70 Height: 5' 5 (1.651 m) Weight: 160 lb (72.576 kg) General: Well-developed, well-nourished female in [facility] HEENT: Normocephalic, atraumatic. Breast: Equal in size and shape bilaterally. No lesions, palpable masses, or abnormal discharge noted Abdomen: Soft, nontender, nondistended, no rebound/guarding Extremities: No clubbing, cyanosis, or edema. No calf tenderness. Pelvic: Normal appearing external genitalia. Cervix well visualized and no lesions noted. No adnexal masses or fullness noted bilaterally. No cervical motional tenderness. Assessment/Plan: Trinh Corral is a 23 y.o. here today for Well-Woman Exam 1. Dysmenorrhea - reviewed other options. Would like to try mirena iud. Will order 2. Exam today unremarkable, Pap smear was obtained 3. Health Maintenance - Self breast exam. 4. Contraception- will get mirena Yesenia Friedman DO documented in this encounter Plan of Treatment Upcoming Encounters Date Type Department Care Team (Late st Contact Info) Description 05/19/2024 9:00 AM MEDICAL TECHNOLOGIST Appointment [facility] [address] [place] [address] Gadiel Majano MD [address] [place] [phone] 06/05/2024 8:30 AM MEDICAL TECHNOLOGIST Appointment [facility] [address] [place] [place] [phone] Gadiel Majano MD [address] [place] [phone] 08/09/2024 4:00 PM CDT Office Visit [address] [place] [address] Jairo Matute, LISA [address] [place] [address] [address] [place] [address] 01/23/2025 3:20 PM CDT Office Visit [address] [place] [address] Gadiel Majano MD [address] [place] [phone] 08/03/2025 8:30 AM CDT Office [facility] NEUROLOGY [facility] [address] [facility] [address] [place] [address] Aliza Lion MD [address] [facility] [address] [place] [phone] documented as of this encounter Results * CHLAMYDIA AND GC, PAP VIAL (10/13/2013 6:36 PM CDT) C TRAC RNA NOT DETECTED NOT DETECTED [facility] NEISSERIA GONORRHOEAE RNA NOT DETECTED NOT DETECTED [facility] GC AND CHLAMYDIA PROBE COMMENT See Result Comment [facility] Comment: This test was performed using the APTIMA COMBO2 Assay ([employer] The analytical performance characteristics of this assay, when used to test SurePath specimens have been determined by [employer] ? Lab test performed by: [facility] [address] [place] [address] ELVIS CARRILLO MD Endocervical 10/13/2013 6:36 PM CDT 10/13/2013 9:23 PM CDT Comment:ENDOCERVICAL Narrative [facility] - 10/18/2013 8:48 AM CDT ecc Yesenia Friedman DO BODY FLUIDS AND STOO LS COM [facility] CLIA# [id number] [address] [facility] [place] [address] * CERV/VAG CYTOPATH, THIN PREP IMAGR RFLX HPV (10/13/2013 2:41 PM CDT) PAP INTERP Unable to provide interpretation due to unsatisfactory specimen adequacy. [facility] Netadmin [facility] Comment: Performed by [employer] Laboratory, [address] [place] [address] Hostess Party Sales Representative Pap Comment This case could not be evaluated with computer assisted technology. The slide was manually screened according to routine procedures. [facility] ADEQUACY: Specimen processed and examined, but unsatisfactory for evaluation due to an insufficient number of squamous cells. [facility] LABORATORY [facility] CLINICAL INFORMATION HEALTHY [facility] LABORATORY SERVICES [facility] SOURCE Endocervix [facility] LABORATORY [facility] PREV PAP: [phone] [facility] LABORATORY [facility] CYTOTECHNOLOGI ST: PCM, CT(ASCP) [facility] LABORATORY SERVICES [facility] REVIEW CYTOTECHNOLOGI ST: MAF, CT(ASCP) [facility] LABORATORY [facility] LAST MENSTRUAL PERIOD Information not provided [facility] LABORATORY [facility] PREV BX: Information not provided [facility] LABORATORY [facility] Endocervical 10/13/2013 2:41 PM CDT 10/13/2013 9:23 PM CDT Comment:ENDOCERVICAL Narrative [facility] LABORATORY [facility] - 10/23/2013 8:23 AM CDT eccClinical History->Healthy Previous Pap Date->10/03/12 Yesenia Friedman DO PATHOLOGY/CYTOLOGY O RDERABLES Performing Organization Address City/State/[facility] Co de Phone Number [facility] LABORATORY [facility] CLIA# [id number] [address] [place] [address] documented in this encounter Visit Diagnoses Diagnosis Routine gynecological examination- Primary Screening examination for venereal disease Routine gynecological examination Screening examination for venereal disease documented in this encounter Care Teams Radarman Relationship Specialty Start Date End Date Gadiel Majano MD [address] [place] [phone] PCP - General 02/25/07 documented as of this encounter
--- OUTSIDE RECORDS SUMMARY | 2024-05-11 14:58 | XMS_ITS | Encounter Summary ---
Author Organization [facility] Address [address] [place] [address] Care Team Providers Care Can Filler Name Role Phone Gadiel Majano MD Primary Care Provider [phone] Reason for Visit * Reason Comments Ultrasound Encounter Details Date Type Department Care Team (Late Contact Info) Description 06/19/2013 4:20 PM RESTAURANT KITCHEN MANAGER Office Visit [facility] MILLER HEAD WET PROCESS - Medical [facility] [address] [facility] [address] [address] Amparo Cramer Dysmenorrhea (Primary Dx) Social History Tobacco Use Types [...] as of this encounter Progress Notes * Chyna Rankin RDMS - 06/19/2013 8:51 AM CST Patient seen in office today and ultrasound performed AURANT KITCHEN MANAGER documented in this encounter Plan of Treatment Upcoming Encounters Date Type Department Care Team (Late Contact Info) Description 05/19/2024 9:00 AM RESTAURANT KITCHEN MANAGER Appointment [facility] EEG S [facility] [address] [place] [address] Gadiel Majano MD [address] [place] [address] [place] [phone] 06/05/2024 8:30 AM RESTAURANT KITCHEN MANAGER Appointment [facility] S [facility] [address] [place] [phone] Gadiel Majano MD [address] [place] [address] [address] [place] [address] 08/09/2024 4:00 PM CDT Office Visit [address] [place] [address] Jairo Matute PA [address] [place] [address] [address] [place] [phone] 01/23/2025 3:20 PM CDT Office Visit [address] [place] [phone] Gadiel Majano MD [address] [place] [address] [address] [place] [address] 08/03/2025 8:30 AM CDT Office Visit [facility] [place] [facility] [place] [address] [facility] [address] [place] [address] Aliza Lion MD [address] [facility] [address] [place] [address] documented as of this encounter Procedures Procedure Name Priority Date/Time Associated Diagnosis Comments US PELVIC TRANSVAGINAL Routine 06/19/2013 Dysmenorrhea documented in this encounter Results * US PELVIC TRANSVAGINAL (06/19/2013) Anatomical Region Laterality Modality Pelvis Other Impressions 06/19/2013 Trinh Corral is a 22 y.o. female Presents for USN to evaluate dysmenorrhea. Today's USN reveals a/an homogeneous uterus. ??Endometrium measures 5.17 mm. There are no uterine nodules identified. ??The left ovary appears normal. ??The right ovary appears normal. Free fluid is NOT seen in the cul-de-sac. ??Clinical correlation is recommended. Len Sanches MD US ORDERABLES documented in this encounter Visit Diagnoses Diagnosis Dysmenorrhea- Primary documented in this encounter Care Teams Can Filler Relationship Specialty Start Date End Date Gadiel Majano MD [address] [place] [address] PCP - General 02/25/07 documented as of this encounter
--- OUTSIDE RECORDS SUMMARY | 2024-05-11 14:58 | XMS_ITS | Encounter Summary ---
Author Organization [facility] Address [address] [place] [address] Care Team Providers Care Wood Planer Name Role Phone Gadiel Majano MD Primary Care Provider [phone] Reason for Visit * Reason Onset Date Comments Results 03/09/2013 Encounter Details Date Type Department Care Team (Late st Contact Info) Description 03/09/2013 Telephone [facility] Internal Medicine [address] [address] Gadiel Majano MD [address] [place] [address] Results Social History Tobacco Use Types [...] encounter Miscellaneous Notes * Telephone Encounter - Behzad Darnell - 03/15/2013 4:10 PM CDT Spoke with pt about results. Pt stated she and e-mailed regarding results. Pt currently seeing achiropractor who deals with sport injuries as well. * Telephone Encounter - Tabitha Gomez - 03/14/2013 4:08 PM CDT Left message for patient to call back on home answering machine * Telephone Encounter - Tabitha Gomez - 03/13/2013 6:33 PM CDT Left message for patient to call back on voice mail * Telephone Encounter - Emilia Abbott - 03/10/2013 3:37 PM CDT Called patient home left message to call doctor office back. * Telephone Encounter - Gadiel Majano MD - 03/09/2013 4:09 PM CDT Foot x ray is negative Next step is referral to Waiter/Waitress Counter if still having pain documented in this encounter Plan of Treatment Upcoming Encounters Date Type Department Care Team (Late st Contact Info) Description 05/19/2024 9:00 AM SENIOR TERADATA DEVELOPER Appointment [facility] EEG [address] [place] [address] [place] [phone] Gadiel Majano MD [address] [place] [phone] 06/05/2024 8:30 AM SENIOR TERADATA DEVELOPER Appointment [facility] [address] [place] [address] [place] [phone] Gadiel Majano MD [address] [place] [phone] 08/09/2024 4:00 PM CDT Office Visit [facility] Primary Care [address] [address] Jairo Matute, LISA [address] [facility] [address] [place] [address] 01/23/2025 3:20 PM CDT Office Visit [facility] Primary Care [facility] [address] [facility] [place] [address] Gadiel Majano MD [address] [facility] [address] [place] [address] 08/03/2025 8:30 AM CDT Office Visit [facility] NEUROLOGY - [facility] 5003B [address] [facility] [address] [place] [address] Aliza Lion MD [address] [facility] [address] [place] [address] documented as of this encounter Visit Diagnoses Not on filedocumented in this encounter Care Teams Wood Planer Relationship Specialty Start Date End Date Gadiel Majano MD [address] [place] [address] [address] [place] [address] PCP - General 02/25/07 documented as of this encounter
--- OUTSIDE RECORDS SUMMARY | 2024-05-11 14:58 | XMS_ITS | Encounter Summary ---
Author Organization [facility] Address [address] [place] [address] Care Team Providers Care Combiner Operator Name Role Phone Gadiel Majano MD Primary Care Provider [phone] Reason for Visit * Reason Onset Date Comments Medication Review 02/04/2016 Clau GONZALEZ Encounter Details Date Type Department Care Team (Late st Contact Info) Description 02/04/2016 Telephone [facility] Internal Medicine [address] [address] Gadiel Majano MD [address] [place] [address] Medication Review (Clau GONZALEZ ) Social History Tobacco Use Types Packs/Day Years [...] encounter Miscellaneous Notes * Telephone Encounter - Erin Winter - 02/04/2016 4:47 PM CDT Called to initiate a 2nd PA information about wellbutrin was given to Pa dept, pt has still not tried any otc medications Advised she has tried and failed wellbutrin And been counseled in office Sent for clinical review, we will get another fax once decision has been made I * Telephone Encounter - Gadiel Majano MD - 02/04/2016 1:08 PM CDT See other note Failed wellbutrin Try auth Spoke with pt * Telephone Encounter - Erin Winter - 02/04/2016 11:43 AM CDT Pt insisted we complete PA on chantix, called to complete, LISA [phone], PT ID [id number] Pt has not tried any step therapy prior to getting this rx, went for review, PA will be denied We will get fax from Pa dept. Case ref#[id number] Pt has several OTc options along with Wellbutrin which is what PA dept mentioned Tried to call pt back to advise, also noticed your mymercy message after speaking with pt, left allthe info on pts vm as she requested I call her post PA. Did you want to try Wellbutrin ? documented in this encounter Plan of Treatment Upcoming Encounters Date Type Department Care Team (Late st Contact Info) Description 05/19/2024 9:00 AM PIN STICKER Appointment [facility] EEG S [facility] [address] [place] [address] Gadiel Majano MD [address] [place] [phone] 06/05/2024 8:30 AM PIN STICKER Appointment [facility] [address] [place] [address] [place] [address] Gadiel Majano MD [address] [place] [phone] 08/09/2024 4:00 PM CDT Office Visit [facility] [place] [address] [facility] [address] [place] [address] Jairo Matute, LISA [address] [place] [address] [address] [place] [address] 01/23/2025 3:20 PM CDT Office Visit [address] [place] [address] Gaidel Majano MD [address] [place] [address] [address] [place] [address] 08/03/2025 8:30 AM CDT Office Visit [facility] NEUROLOGY [facility] [address]B [address] [facility] [address] [place] [address] Aliza Lion MD [address] [facility] [address] [place] [address] documented as of this encounter Visit Diagnoses Not on filedocumented in this encounter Care Teams Combiner Operator Relationship Specialty Start Date End Date Gadiel Majano MD [address] [place] [address] [address] [place] [phone] PCP - General 02/25/07 documented as of this encounter
--- OUTSIDE RECORDS SUMMARY | 2024-05-11 14:58 | XMS_ITS | Encounter Summary ---
Author Organization [facility] Address [address] [place] [address] Care Team Providers Care Metal Weigher Name Role Phone Gadiel Majano MD Primary Care Provider [phone] Reason for Visit * Reason Comments Medication Refill Encounter Details Date Type Department Care Team (Late st Contact Info) Description 01/30/2013 Refill [facility] HAND TOOL LAPPER - Medical [address] [place] [address] Yesenia Friedman DO [address] [facility] [address] [place] [address] Social History Tobacco Use Types Packs/Day [...] * Telephone Encounter - Sweta Gallardo - 01/31/2013 10:37 AM CDT Last seen 10/03/12 documented in this encounter Plan of Treatment Upcoming Encounters Date Type Department Care Team (Late Contact Info) Description 05/19/2024 9:00 AM IT APPLICATIONS MANAGER Appointment [facility] Support Services EEG S [facility] [address] [place] [address] Gadiel Majano MD [address] [place] [address] [address] [place] [address] 06/05/2024 8:30 AM IT APPLICATIONS MANAGER Appointment [facility] S [facility] [address] [place] [phone] Gadiel Majano MD [address] [place] [address] [address] [place] [address] 08/09/2024 4:00 PM CDT Office Visit [facility] Care [address] [place] [address] Jairo Matute PA [address] [place] [address] [address] [place] [address] 01/23/2025 3:20 PM CDT Office Visit [address] [place] [address] Gadiel Majano MD [address] [place] [phone] 08/03/2025 8:30 AM CDT Office Visit [facility] [place] [facility] 5[address]B [address] [facility] [address] [place] [address] Aliza Lion MD [address] [facility] [address] [place] [address] documented as of this encounter Visit Diagnoses Not on filedocumented in this encounter Care Teams Metal Weigher Relationship Specialty Start Date End Date Gadiel Majano MD [address] [place] [address] [address] [place] [address] PCP - General 02/25/07 documented as of this encounter
--- OUTSIDE RECORDS SUMMARY | 2024-05-11 14:58 | XMS_ITS | Encounter Summary ---
Author Organization [facility] Address [address] [place] [address] Care Team Providers Care Epic Beacon Analyst Name Role Phone Gadiel Majano MD Primary Care Provider [phone] Encounter Details Date Type Department Care Team (Late Contact Info) Description 11/07/2013 Orders Only [facility] LIFE SKILLS EDUCATOR - Medical [facility] [address] [facility] [address] [address] Ann Worthington, RN Social History Tobacco Use Types Packs/Day [...] (Late Contact Info) Description 05/19/2024 9:00 AM PREHEMMER Appointment [facility] Support Services EEG [address] [place] [address] [place] [address] Gadiel Majano MD [address] [place] [address] 06/05/2024 8:30 AM PREHEMMER Appointment [facility] MRI [address] [place] [address] [place] [address] Gadiel Majano MD [address] [place] [address] [place] [phone] 08/09/2024 4:00 PM CDT Office Visit [facility] [address] [place] [address] [address] [place] [phone] Jairo Matute, LISA [address] [place] [address] [address] [place] [address] 01/23/2025 3:20 PM CDT Office Visit [address] [place] [address] Gadiel Majano MD [address] [place] [address] [address] [place] [address] 08/03/2025 8:30 AM CDT Office Visit [facility] NEUROLOGY - GOVERNMENT CAMP B - [facility] 5003B [address] [facility] [address] [place] [address] Aliza Lion MD [address] [facility] [address] [place] [address] documented as of this encounter Visit Diagnoses Not on filedocumented in this encounter Care Teams Epic Beacon Analyst Relationship Specialty Start Date End Date Gadiel Majano MD [address] [place] [address] [address] [place] [address] PCP - General 02/25/07 documented as of this encounter
--- OUTSIDE RECORDS SUMMARY | 2024-05-11 14:58 | XMS_ITS | Encounter Summary ---
Author Organization [facility] Address [address] [place] [address] Care Team Providers Care Batch Mixing Truck Driver Name Role Phone Gadiel Majano MD Primary Care Provider [phone] Reason for Visit * Reason Comments Other EACH TIME SHE HAS ME NSES, SHE HAS PELVIC PAIN Encounter Details Date Type Department Care Team (Late st Contact Info) Description 06/12/2013 9:30 AM MILLINERY WORKER Office Visit [facility] MINE SAFETY MANAGER - Medical [facility] [address] [facility] [address] [phone] Leah Vasquez NP NO ADDRESS ON FILE Dysmenorrhea (Primary Dx) Social History Tobacco Use Types Packs/Day Years Used Date Smoking Tobacco: Some Days Cigarettes 0.5 4 Smokeless Tobacco: Never Tobacco Cessation:Ready to Q uit: No; Counseling Given: No Comments:one pack for a week Alcohol Use Standard Drinks/Week Comments Yes 0.8 (1 standard drink = 0.6 oz p ure alcohol) SOCIALLY Sex and Gender Information Value Date Recorded Sex Assigned at Not on file Gender Identity Not on file Sexual Orientation Not on file documented as of this encounter Last Filed Vital Signs Vital Sign Reading Time Taken Comments Blood Pressure 110/62 06/12/2013 9:36 AM MILLINERY WORKER Pulse - - Temperature - - Respiratory Rate - - Oxygen Saturation - - Inhaled Oxygen Concentration - - Weight 75.3 kg (166 lb) 06/12/2013 9:36 AM MILLINERY WORKER Height 165.1 cm (5' 5 ) 06/12/2013 9:36 AM MILLINERY WORKER Body Mass Index 27.62 06/12/2013 9:36 AM MILLINERY WORKER documented in this encounter Progress Notes * Leah Vasquez NP - 06/12/2013 9:45 AM CST CC: I am here for painful menses HPI: Trinh Corral 22 y.o. female patient here for a problem visit. Patient reports has h/o severe pain during menses. Reports she feels like the pain has been getting worse. Started cycling nuvaring to skip menses. Has not had a period for about 5 months. Patient's last menstrual period was 05/29/2013. Last menses 2 weeks ago she went to ER d/t pain. No pain between cycles. When pain occurswill get nausea and chills. Concerned something could have changed since pain seemed worse to her with her last period. Sexually active - no pain or bleeding with intercourse. No change in sexual partner. Today no c/o pain or cramping. No vaginal discharge, itching or odor. No urinary or bowel c/o. ROS: Constitutional: denies fevers and chills Abdominal: denies cramping Past Medical History Diagnosis Date ??? Kyphosis [...] MD at [facility] History Social History ??? Marital Status: Single Spouse Name: N/A Number of Children: N/A ??? Years of Education: N/A Occupational History ??? Not Employed Social History Main Topics ??? Smoking status: Current Some Day Smoker -- 0.50 packs/day for 4 years Types: Cigarettes ??? Smokeless tobacco: Never Used Comment: one pack for a week ??? Alcohol Use: 0.5 oz/week 1 Cans of beer per week Comment: SOCIALLY ??? Drug Use: No ??? Sexually Active: Yes -- Male partner(s) Control/ Protection: None Comment: LMP: 07/07/12 Other Topics Concern ??? Not on file Social History Narrative ??? No narrative on file EXAM: Blood pressure 110/62, height 5' 5 (1.651 m), weight 166 lb (75.297 kg), last menstrual period 05/29/2013, not currently . General: No apparent distress Resp: even and unlabored Pelvic exam: examination not indicated. ASSESSMENT: (625.3) Dysmenorrhea PLAN: Pelvic USN and appointment to follow to discuss results We discussed cycling NuvaRing to avoid monthly menses. Discussed Mirena. Discussed Ultram for pain when menses occur. Call if symptoms not improved RTO as scheduled for routine check up Total face to face time 15 minutes, with greater than 50% spent in consultation with patient regarding dysmenorrhea and treatment options INERY WORKER documented in this encounter Plan of Treatment Upcoming Encounters Date Type Department Care Team (Late st Contact Info) Description 05/19/2024 9:00 AM MILLINERY WORKER Appointment [facility] [address] [place] [address] [place] [address] Gadiel Majano MD [address] [place] [phone] 06/05/2024 8:30 AM MILLINERY WORKER Appointment [facility] [address] [place] [address] [place] [address] Gadiel Majano MD [address] [place] [phone] 08/09/2024 4:00 PM CDT Office Visit [address] [phone] Jairo Matute PA [address] [place] [phone] 01/23/2025 3:20 PM CDT Office Visit [address] [place] [phone] Gadiel Majano MD 6[address] [facility] [address] [place] [address] 08/03/2025 8:30 AM CDT Office Visit [facility] NEUROLOGY [facility] [address] [facility] [address] [place] [address] Aliza Lion MD [address] [facility] [address] [place] [address] documented as of this encounter Visit Diagnoses Diagnosis Dysmenorrhea- Primary documented in this encounter Care Teams Batch Mixing Truck Driver Relationship Specialty Start Date End Date Gadiel Majano MD [address] [place] [address] [address] [place] [phone] PCP - General 02/25/07 documented as of this encounter
--- OUTSIDE RECORDS SUMMARY | 2024-05-11 14:58 | XMS_ITS | Encounter Summary ---
Author Organization [facility] Address [address] [place] [address] Care Team Providers Care Burrer Marker Axle Name Role Phone Gadiel Majano MD Primary Care Provider [phone] Reason for Referral * Outpatient Services (Routine) - Closed Specialty Diagnoses / Procedures Referred By Contac t Referred To Contact Diagnoses Recurrent UTI Procedures US RENAL AND BLADDER Gadiel Majano MD [address] [place] [phone] Referral ID Status Reason Start Date Expiration Date V isits Requested Visits Authorized [id number] Closed STL CTS 02/12/2016 03/14/2017 1 1 * Eval and Treat (Routine) - Closed Specialty Diagnoses / Procedures Referred By Contac t Referred To Contact Urology Diagnoses Recurrent UTI Gadiel Majano MD [address] [place] [phone] Pearl Ho MD [address] [address] Referral ID Status Reason Start Date Expiration Date V isits Requested Visits Authorized [id number] Closed CRS To Schedule (STL) 02/12/2016 02/11/2017 1 1 Reason for Visit * Reason Comments ER Follow Up on uti Encounter Details Date Type Department Care Team (Late st Contact Info) Description 02/12/2016 3:45 PM CDT Office Visit [facility] Internal Medicine [address] [phone] Gadiel Majano MD [address] [place] [phone] Recurrent UTI (Primary Dx); Tobacco use; Routine general medical examination at a health [...] Reading Time Taken Comments Blood Pressure 100/70 02/12/2016 3:46 PM CDT Pulse - - Temperature - - Respiratory Rate - - Oxygen Saturation - - Inhaled Oxygen Concentration - - Weight 77.1 kg (170 lb) 02/12/2016 3:46 PM CDT Height 167.6 cm (5' 6 ) 02/12/2016 3:46 PM CDT Body Mass Index 27.44 02/12/2016 3:46 PM CDT documented in this encounter Progress Notes * Gadiel Majano MD - 02/12/2016 5:22 PM CDT Subjective: Trinh Corral is a 25 y.o. female. Prev visit rec uti issues Recent with n, v in er On macrobid ? Pyelo Feeling little better still some back pain Issues with ureters since childhood smoking Patient Active Problem List Diagnosis Date Noted ??? Tobacco use 07/30/2015 ??? Mirena 12/11/13 [...] BIOPSY performed by Ananda Celestin MD at [facility] MA[facility] Family History Problem Relation Age of Onset ??? Heart Disease Mother ??? Migraines Mother ??? Cancer Brother Myeloma & Lymphoma ??? Breast Cancer Neg Hx ??? Ovarian Cancer Maternal Grandmother ??? Colon Cancer Neg Hx Social History [...] fatigue, nausea, syncope, shortness of breath Gastrointestinal: as above Exam/Objective: exam: Blood pressure 100/70, height 5' 6 (1.676 m), weight 77.111 kg (170 lb), not currently . General appearance: active, alert, [...] Extremities: extremities normal, atraumatic, no cyanosis or edema Skin: Skin color, texture, turgor normal. Bruising thighs le Assessment and Plan: ASSESSMENT: ICD-10-CM ICD-9-CM 1. Recurrent UTI N39.0 599.0 AMB REFERRAL TO UROLOGY US RENAL AND BLADDER CBC WITH DIFFERENTIAL BASIC METABOLIC PANEL URINALYSIS WITH REFLEX CULTURE 2. Tobacco use Z72.0 305.1 TOBACCO COUNSELING She was counseled to discontinue tobacco use. Advise flu vac, refuses Recheck ua Check renal us urololgy consult Review cx adjust rx BMI PLAN OF CARE Normal BMI ranges: 18-64 yrs: > or = 18.5 and < 25 65 yrs and older: > or = 23 and < 30 Body mass index is 27.45 kg/(m^2). Abnormal high BMI: patient counseled on lifestyle modifications including weight loss and daily exercise. Weight management options discussed. TOBACCO COUNSELING She was counseled to discontinue tobacco use. Trying PA for chantix Failed wellbutrin Discussed patch/gum Advise fu obgyn nurse PLAN: Orders Placed This Encounter ??? US RENAL AND BLADDER ??? CBC WITH DIFFERENTIAL (Favorites) ??? BASIC METABOLIC PANEL (Favorites) ??? URINALYSIS WITH REFLEX CULTURE ??? Generic Referral to Urology Appropriate medications prescribed Appropriate patient instructions provided Follow-up as I have indicated. Medications and options explained to include common side effects. Understanding of medications, course, diagnosis, and expectations were expressed by patient/guardian. documented in this encounter Plan of Treatment Upcoming Encounters Date Type Department Care Team (Late st Contact Info) Description 05/19/2024 9:00 AM PRODUCTION PLANNER Appointment [facility] EEG [facility] [address] [facility] [place] [phone] Gadiel Majano MD [address] [place] [address] [place] [address] 06/05/2024 8:30 AM PRODUCTION PLANNER Appointment [facility] S [facility] [address] [place] [phone] Gadiel Majano MD [address] [place] [phone] 08/09/2024 4:00 PM CDT Office Visit [facility] Primary [facility] [place] [address] [place] [address] Jairo Matute PA [address] [place], [place] [address] [phone] 01/23/2025 3:20 PM CDT Office Visit [place] [address] [place] [address] Gadiel Majano MD [address] [place] [phone] 08/03/2025 8:30 AM CDT Office Visit [facility] NEUROLOGY - [place] [address] [facility] [address] [place] [address] Aliza Lion MD [address] [facility] [address] [place] [address] Scheduled Orders Name Type Priority Associated Diagnoses Orde r Schedule CBC WITH DIFFERENTIAL Lab Routine Recurrent UTI Expected: 02/19/2016, Expires: 02/11/2017 BASIC METABOLIC PANEL Lab Routine Recurrent UTI Expected: 02/19/2016, Expires: 02/11/2017 URINALYSIS WITH REFLEX CULTURE Lab Routine Recurrent UTI Expected: 02/19/2016, Expires: 02/11/2017 Scheduled Referrals Name Type Priority Associated Diagnoses Orde r Schedule AMB REFERRAL TO UROLOGY Outpatient Referral Routine Recurrent UTI Ordered: 02/12/2016 documented as of this encounter Results * US RENAL AND BLADDER (02/28/2016 11:23 AM CDT) Anatomical Region Laterality Modality Abdomen Ultrasound 02/28/2016 11:2 7 AM CDT Impressions 02/28/2016 11:30 AM CDT IMPRESSION: Mildly small left kidney, otherwise negative DICTATION LOCATION: Location 1 - [facility] Narrative 02/28/2016 11:30 AM CDT ULTRASOUND OF THE [...] otherwise negative DICTATION LOCATION: Location 1 - [facility] Gadiel Majano MD US ORDERABLES documented in this encounter Visit Diagnoses Diagnosis Recurrent UTI- Primary Urinary tract infection, site not specified Tobacco use Tobacco use disorder Routine general medical examination at a health care facility Recurrent UTI Urinary tract infection, site not specified documented in this encounter Care Teams Burrer Marker Axle Relationship Specialty Start Date End Date Gadiel Majano MD [address] [place] [phone] PCP - General 02/25/07 documented as of this encounter
--- OUTSIDE RECORDS SUMMARY | 2024-05-11 14:58 | XMS_ITS | Encounter Summary ---
Author Organization [facility] Address [address] [place] [address] Care Team Providers Care Shoe Salesperson Name Role Phone Gadiel Majano MD Primary Care Provider [phone] Encounter Details Date Type Department Care Team (Latest Contact Info) Description 12/13/2014 3:19 PM CDT - 12/13/2014 11:59 PM CDT Hospital Encounter [facility] Laboratory Services [address] [phone] Gadiel Majano MD [address] [place] [phone] Discharge Disposition: Home or Self Care [...] (Late Contact Info) Description 05/19/2024 9:00 AM AGRICULTURE SALES ACCOUNT MANAGER Appointment [facility] Support [facility] S [facility] [address] [place] [address] Gadiel Majano MD [address] [place] [phone] 06/05/2024 8:30 AM AGRICULTURE SALES ACCOUNT MANAGER Appointment [facility] [address] [place] [address] Gadiel Majano MD [address] [place] [phone] 08/09/2024 4:00 PM CDT Office Visit [facility] Care [address] [phone] Jairo Matute PA [address] [place] [phone] 01/23/2025 3:20 PM CDT Office Visit [address] [phone] Gadiel Majano MD [address] [place] [phone] 08/03/2025 8:30 AM CDT Office Visit [facility] NEUROLOGY - [place] - [facility] [address] [place] [phone] [place] [address] Aliza Lion MD [address] [place] [address] [place] [phone] documented as of this encounter Procedures Procedure Name Priority Date/Time Associated Diagnosis Comments VON WILLEBRAND FACTOR ASSAY Routine 12/13/2014 3:20 PM CDT Ecchymosis HEPATITIS C ANTIBODY Routine 12/13/2014 3:20 PM CDT Abnormal liver function test CBC WITH DIFFERENTIAL Routine 12/13/2014 3:20 PM CDT Ecchymosis PTT Routine 12/13/2014 3:20 PM CDT Ecchymosis PROTIME-INR Routine 12/13/2014 3:20 PM CDT Ecchymosis BRONSON SCREEN W/REFLEX Routine 12/13/2014 3 :20 PM CDT Abnormal liver function test TSH Routine 12/13/2014 3:20 PM CDT Routine general medical examination at a [facility] care facility FERRITIN Routine 12/13/2014 3:20 PM CDT Abnormal liver function test COMPREHENSIVE METABOLIC PANEL Routine 12/13/2014 3:20 PM CDT Ecchymosis documented in this encounter Results * BRONSON SCREEN W/REFLEX (12/13/2014 3:20 PM CDT) BRONSON <1:40 <1:40 (Negative ) 12/17/2014 2:52 PM CDT [facility] Comment: No Titer performed, BRONSON screen is negative. Test Performed by: [place] [address] Parachutist/Combatant Diver Qualified: Altagracia Alcantar, Ph.D. Blood specimen (specimen) Venipuncture - Lab Collect / Unknown 12/13/2014 3:20 PM CDT 12/13/2014 3:20 PM CDT Gadiel Majano MD CHEMISTRY ORDERABLES [facility] * FERRITIN (12/13/2014 3:20 PM CDT) FERRITIN 42.3 13.0 - 150.0 ng/mL 12/13/2014 10:07 PM CDT [facility] Blood Venipuncture - L ab Collect / Unknown 12/13/2014 3:20 PM CDT 12/13/2014 3:20 PM CDT Gadiel Majano MD CHEMISTRY ORDERABLES Performing Organization Address [facility] Co de Phone Number [facility] CLIA# [id number] [address] [place] [address] * HEPATITIS C ANTIBODY (12/13/2014 3:20 PM CDT) [facility] HEPATITIS C AB Non-reacti ve Non-react gloria 12/13/2014 9:30 PM CDT [facility] Comment: If a patient is known to [...] Majano MD CHEMISTRY ORDERABLES Performing Organization Address [facility] Co de Phone Number [facility]# [id number] [address] [place] [address] * VON WILLEBRAND FACTOR ASSAY (12/13/2014 3:20 PM CDT) [facility] VON WILLEBRAND FACTOR ACTIVITY 103 55 - 200 % 12/14/2014 4:07 PM CDT [facility] Comment: Test Performed by: [address] [address] Parachutist/Combatant Diver Qualified: Quincy Rahman II, M.D., Ph.D. Blood specimen (specimen) Venipuncture - Lab Collect / Unknown 12/13/2014 3:20 PM CDT 12/13/2014 3:20 PM CDT Gadiel Majano MD CHEMISTRY ORDERABLES Performing Organization Address [facility] Co de Phone Number [facility] * PTT (12/13/2014 3:20 PM CDT) PTT 32.5 24.4 - 36.4 seconds 12/13/2014 9:00 PM CDT [facility] Comment: PTT Therapeutic Range: Heparin Level ? [...] MD HEMATOLOGY ORDERABLE S Performing Organization Address [facility] Co de Phone Number [facility]# [id number] [address] [place] [address] * PROTIME-INR (12/13/2014 3:20 PM CDT) PROTIME 13.2 12.7 - 15.1 Seconds 12/13/2014 8:59 PM CDT [facility] INR 1.0 0.9 - 1.1 12/13/2014 8:59 PM CDT [facility] Comment: INR Therapeutic Range: Adult: ?? 2.0 - 3.0 for pulmonary embolism or prophylaxis against venous ?thrombosis or systemic embolization. 2.0 - 3.0 for patients with tissue heart valves. 2.5 - 3.5 for patients with mechanical heart valves or post NC. Pediatric ??(12 years and under): 1.5 - 3.0 Although the target range in children is not well established, ?INR values of 1.5 - 3.0 are recommended for most patients. ?Higher values have been used in children with prosthetic ?cardiac valves and hereditary clotting disorders. Hixson (<3 days) therapeutic ranges have not been established. Blood Venipuncture - L ab Collect / Unknown 12/13/2014 3:20 PM CDT 12/13/2014 3:20 PM CDT Gadiel Majano MD HEMATOLOGY ORDERABLE S Performing Organization Address [facility] Co de Phone Number [facility]# [id number] [address] [facility] [place] [address] * TSH (12/13/2014 3:20 PM CDT) Pathologist [facility] TSH 1.01 0.27 - 4.20 uIU/mL 12/13/2014 10:07 PM CDT [facility] Blood Venipuncture - L ab Collect / Unknown 12/13/2014 3:20 PM CDT 12/13/2014 3:20 PM CDT Gadiel Majano MD CHEMISTRY ORDERABLES Performing Organization Address [facility] Co de Phone Number [facility]# [id number] [address] [facility] [place] [address] * COMPREHENSIVE METABOLIC PANEL (12/13/2014 3:20 PM CDT) Pathologist [facility] SODIUM 139 136 - 145 mmol/L 12/13/2014 9:55 PM CDT [facility] POTASSIUM 4.1 3.5 - 5.0 mmol/L 12/13/2014 9:55 PM [facility] CHLORIDE 100 98 - 107 mmol/L 12/13/2014 9:55 PM [facility] CO2 25 22 - 29 mmol/L 12/13/2014 9:55 PM [facility] CALCIUM 9.7 8.6 - 10.2 mg/dL 12/13/2014 9:55 PM [facility] BUN 9 6 - 20 mg/dL 12/13/2014 9:55 PM [facility] CREATININE 0.71 0.51 - 0.95 mg/dL 12/13/2014 9:55 PM [facility] GLUCOSE 92 79 - 99 mg/dL 12/13/2014 9:55 PM [facility] TOTAL PROTEIN 7.9 6.7 - 8.6 g/dL 12/13/2014 9:55 PM [facility] ALBUMIN 5.0 3.5 - 5.2 g/dL 12/13/2014 9:55 PM [facility] BILIRUBIN TOTAL 0.3 0.3 - 1.2 mg/dL 12/13/2014 9:55 PM [facility] ALKALINE PHOSPHATASE 92 35 - 104 U/L 12/13/2014 9:55 PM [facility] AST 25 <33 U/L 12/13/2014 9:55 PM [facility] ALT 11 <34 U/L 12/13/2014 9:55 PM [facility] GFR >60 >=60 mL/min/1.7 3 sq meter 12/13/2014 9:55 PM [facility] Comment: eGFR [...] 3 sq meter 12/13/2014 9:55 PM CDT [facility] ANION GAP 14 8 - 16 mmol/L 12/13/2014 9:55 PM CDT [facility] Blood Venipuncture - L ab Collect / Unknown 12/13/2014 3:20 PM CDT 12/13/2014 3:20 PM CDT Gadiel Majano MD CHEMISTRY ORDERABLES [facility] CLIA# [id number] [facility] [place] [address] * (ABNORMAL) CBC WITH DIFFERENTIAL (12/13/2014 3:20 PM CDT) WBC 10.1(H) 4.0 - 9.8 K/uL 12/13/2014 9:07 PM CDT [facility] RBC 4.45 3.90 - 4.90 M/uL 12/13/2014 9:07 PM CDT [facility] HEMOGLOBIN 13.8 11.8 - 14.8 g/dL 12/13/2014 9:07 PM CDT [facility] HEMATOCRIT 42.5 35.5 - 44.0 % 12/13/2014 9:07 PM CDT [facility] MCV 95.5 82.0 - 99.0 fL 12/13/2014 9:07 PM CDT [facility] MCH 31.0 27.2 - 32.6 pg 12/13/2014 9:07 PM CDT [facility] MCHC 32.5 30.0 - 36.0 g/dL 12/13/2014 9:07 PM CDT [facility] RDW 14.5 11.5 - 14.5 % 12/13/2014 9:07 PM CDT [facility] RDW-STDEV 51.0(H) 37.1 - 48.7 fL 12/13/2014 9:07 PM CDT [facility] PLATELETS 254 140 - 350 K/uL 12/13/2014 9:07 PM CDT [facility] MPV 11.9 9.3 - 12.4 fL 12/13/2014 9:07 PM CDT [facility] NEUTROPHILS 66 45 - 70 % 12/13/2014 9:07 PM CDT [facility] LYMPHOCYTES 22 16 - 45 % 12/13/2014 9:07 PM CDT [facility] MONOCYTES 10 3 - 13 % 12/13/2014 9:07 PM CDT [facility] EOSINOPHILS 2 <7 % 12/13/2014 9:07 PM CDT [facility] BASOPHILS 0 <3 % 12/13/2014 9:07 PM CDT [facility] NEUTROPHIL ABSOLUTE 6.74 1.90 - 7.00 K/uL 12/13/2014 9:07 PM CDT [facility] LYMPHOCYTE ABSOLUTE 2.23 0.70 - 4.50 K/uL 12/13/2014 9:07 PM CDT [facility] MONOCYTE ABSOLUTE 0.97 0.10 - 1.30 K/uL 12/13/2014 9:07 PM CDT [facility] EOSINOPHIL ABSOLUTE 0.18 <0.70 K/uL 12/13/2014 9:07 PM CDT [facility] BASOPHILS ABSOLUTE 0.02 <0.30 K/uL 12/13/2014 9:07 PM CDT [facility] Blood Venipuncture - L ab Collect / Unknown 12/13/2014 3:20 PM CDT 12/13/2014 3:20 PM CDT Gadiel Majano MD HEMATOLOGY ORDERABLE S [facility] CLIA# [id number] [address] [place] [address] documented in this encounter Visit Diagnoses Diagnosis Ecchymosis Other specified circulatory system disorders Routine general medical examination at a health care facility Abnormal liver function test Other abnormal blood chemistry documented in this encounter Care Teams Shoe Salesperson Relationship Specialty Start Date End Date Gadiel Majnao MD [address] [place] [phone] PCP - General 02/25/07 documented as of this encounter
--- OUTSIDE RECORDS SUMMARY | 2024-05-11 14:58 | XMS_ITS | Encounter Summary ---
Author Organization [facility] Address [address] [place] [address] Care Team Providers Care Scratch Brusher Name Role Phone Gadiel Majano MD Primary Care Provider [phone] Reason for Visit * Reason Comments Appeals Specialist Exam u/s consult Encounter Details Date Type Department Care Team (Late st Contact Info) Description 06/19/2013 4:40 PM ENGRAVING PATTERNMAKER Office Visit [facility] CERTIFIED REGISTERED DENTAL ASSISTANT - Medical [address] [place] [address] Yesenia Friedman DO [address] [facility] [address] [place] [address] Dysmenorrhea (Primary Dx) Social History Tobacco Use [...] Sign Reading Time Taken Comments Blood Pressure 122/76 06/19/2013 4:28 PM ENGRAVING PATTERNMAKER Pulse - - Temperature - - Respiratory Rate - - Oxygen Saturation - - Inhaled Oxygen Concentration - - Weight 75.3 kg (166 lb) 06/19/2013 4:28 PM ENGRAVING PATTERNMAKER Height 165.1 cm (5' 5 ) 06/19/2013 4:28 PM ENGRAVING PATTERNMAKER Body Mass Index 27.62 06/19/2013 4:28 PM ENGRAVING PATTERNMAKER documented in this encounter Progress Notes * Yesenia Friedman DO - 06/21/2013 11:36 AM CST Chief Complaint: Dysmenorrhea, pelvic pain Subjective: Trinh Corral is a 22 y.o. here today for follow up of above complaints. Patient has been using nuvaring to help with dysmenorrhea. Has been using continuously for 5 months and then had horrible menses recently. She was seen in office last week and had ultrasound today to evaluate uterus and ovaries. Ultrasound today normal. Patient reports pain now fine that menses over. Was in ER due to pain with last period and wants to know what else she can do. ROS: No fevers No current pain Objective: Blood pressure 122/76, height 5' 5 (1.651 m), weight 166 lb (75.297 kg), last menstrual period 05/29/2013, not currently . Gen: well appearing, no distress Assessment and Plan: Trinh Corral is a 22 y.o. here today for office visit 1. Dysmenorrhea - had used nuvaring for 5 months straight to avoid menses and then had severe cramping with menses 2. Suggested using 3 months at a time. Discussed more likely to have irregular bleeding with longeruse 3. Patient concerned about how much pain she was in and does not want to have pain like that every 3 months. 4. Discussed using nuvaring for longer times, but reviewed increased abnormal bleeding 5. Reviewed option of mirena 6. Will think about it 7. 15 minutes spent with patient, greater than 50% visit spent counseling Yesenia Friedman DO AVING PATTERNMAKER documented in this encounter Plan of Treatment Upcoming Encounters Date Type Department Care Team (Late st Contact Info) Description 05/19/2024 9:00 AM ENGRAVING PATTERNMAKER Appointment [facility] Support Services EEG S [facility] [address] [place] [address] Gadiel Majano MD [address] [place] [address] 06/05/2024 8:30 AM ENGRAVING PATTERNMAKER Appointment [facility] [address] [place] [phone] Gadiel Majano MD [address] [place] [address] [address] [place] [address] 08/09/2024 4:00 PM CDT Office Visit [facility] [address] [place] [address] [address] [place] [address] Jairo Matute, LISA [address] [place] [address] [address] [place] [address] 01/23/2025 3:20 PM CDT Office Visit [facility] [address] [place] [address] [address] [place] [address] Gadiel Majano MD [address] [place] [address] [address] [place] [address] 08/03/2025 8:30 AM CDT Office Visit [facility] NEUROLOGY [facility] [address] [facility] [address] [place] [address] Aliza Lion MD [address] [facility] [address] [place] [address] documented as of this encounter Visit Diagnoses Diagnosis Dysmenorrhea- Primary documented in this encounter Care Teams Scratch Brusher Relationship Specialty Start Date End Date Gadiel Majano MD [address] [place] [address] [address] [place] [address] PCP - General 02/25/07 documented as of this encounter
--- OUTSIDE RECORDS SUMMARY | 2024-05-11 14:58 | XMS_ITS | Encounter Summary ---
Author Organization [facility] Address [address] [place] [address] Care Team Providers Care Top Edge Beveler Name Role Phone Gadiel Majano MD Primary Care Provider [phone] Reason for Visit * Reason Onset Date Comments Results 10/23/2013 Encounter Details Date Type Department Care Team (Late st Contact Info) Description 10/23/2013 Telephone [facility] PRODUCTION SUPERVISOR - Medical [facility] [address] [facility] [address] [address] Jailyn Israel, RN Results Social History Tobacco Use Types Packs/Day [...] encounter Miscellaneous Notes * Telephone Encounter - Serena Major - 10/24/2013 9:56 AM CDT Pt can do iud and repeat pap same day but will need to tell appt line to make sure enough time is scheduled. Laila will contact pt when iud is ready in office. [facility] * Telephone Encounter - Jailyn Israel, RN - 10/23/2013 12:08 PM CDT Pt informed. Pt inquiring about if Dr. Gibson had talked to her insurance at all about Mirena. Transferred to [place]. Pt would like to set up repeat pap and Mirena in one visit. LW * Telephone Encounter - Jailyn Israel RN - 10/23/2013 12:08 PM CDT Message copied by JAILYN ISRAEL on WedOct 23, 2013 12:08 PM ------ Message from: STEVIE GIBSON Created: WedOct 23, 2013 8:59 AM Unsatisfactory for eval - please have her repeat pap ------ documented in this encounter Plan of Treatment Upcoming Encounters Date Type Department Care Team (Late st Contact Info) Description 05/19/2024 9:00 AM LABORATORY CLERK Appointment [facility] [place] [address] [place] [address] Gadiel Majano MD [address] [place], [place] [phone] 06/05/2024 8:30 AM LABORATORY CLERK Appointment [facility] [address] [place] [address] [place] [address] Gadiel Majano MD [address] [place], [place] [phone] 08/09/2024 4:00 PM CDT Office Visit [place] [phone] Jairo Matute PA [address] [place], [place] [phone] 01/23/2025 3:20 PM CDT Office Visit [address] [place] [address] Gadiel Majano MD [address] [place] [address] [address] [place] [address] 08/03/2025 8:30 AM CDT [facility] [address] [facility] [address] [place] [address] Aliza Lion MD [address] [facility] [address] [place] [address] documented as of this encounter Visit Diagnoses Not on filedocumented in this encounter Care Teams Top Edge Beveler Relationship Specialty Start Date End Date Gadiel Majano MD [address] [place] [address] [address] [place] [phone] PCP - General 02/25/07 documented as of this encounter
--- OUTSIDE RECORDS SUMMARY | 2024-05-11 14:58 | XMS_ITS | Encounter Summary ---
Author Organization [facility] Address [address] [place] [address] Care Team Providers Care Biometric Fingerprinting Technician Name Role Phone Gadiel Majano MD Primary Care Provider [phone] Reason for Visit * Reason Onset Date Comments Results 06/13/2015 Encounter Details Date Type Department Care Team (Late Contact Info) Description 06/13/2015 Telephone [facility] Internal Medicine [address] [address] Gadiel Majano MD [address] [place] [address] Results Social History Tobacco Use Types [...] Telephone Encounter - Gadiel Majano MD - 06/13/2015 6:29 PM CST Reviewed urine cx with pt Inconclusive Finish abx Make appt if sx persist CARPENTER documented in this encounter Plan of Treatment Upcoming Encounters Date Type Department Care Team (Late Contact Info) Description 05/19/2024 9:00 AM BOAT CARPENTER Appointment [facility] EEG S [facility] [address] [place] [address] Gadiel Majano MD [address] [place] [phone] 06/05/2024 8:30 AM BOAT CARPENTER Appointment [facility] S [facility] [address] [place] [address] Gadiel Majano MD [address] [place] [address] 08/09/2024 4:00 PM CDT Office Visit [facility] [address] [address] Jairo Matute, LISA [address] [place] [address] 01/23/2025 3:20 PM CDT Office Visit [address] [address] Gadiel Majano MD [address] [place] [address] 08/03/2025 8:30 AM CDT Office Visit [facility] NEUROLOGY - [place] [address] [facility] [address] [place] [address] Aliza Lion MD 6[address] [facility] [address] [place] [address] documented as of this encounter Visit Diagnoses Not on filedocumented in this encounter Care Teams Biometric Fingerprinting Technician Relationship Specialty Start Date End Date Gadiel Majano MD [address] [place] [address] PCP - General 02/25/07 documented as of this encounter
--- OUTSIDE RECORDS SUMMARY | 2024-05-11 14:58 | XMS_ITS | Encounter Summary ---
Author Organization [facility] Address [address] [place] [address] Care Team Providers Care Wirer Name Role Phone Gadiel Majano MD Primary Care Provider Reason for Visit * Reason Onset Date Comments Results 12/14/2014 Encounter Details Date Type Department Care Team (Late Contact Info) Description 12/14/2014 Telephone [facility] Internal Medicine [address] [phone] Gadiel Majano MD [address] [place] [phone] Results Social History Tobacco Use Types [...] (Late Contact Info) Description 05/19/2024 9:00 AM RETORT FEEDER GROUND BONE Appointment [facility] EEG [place] [address] [place] [phone] Gadiel Majano MD [address] [place] [phone] 06/05/2024 8:30 AM RETORT FEEDER GROUND BONE Appointment [facility] S [facility] [address] [facility] [place] [address] Gadiel Majano MD [address] [place] [address] [address] [place] [phone] 08/09/2024 4:00 PM CDT Office Visit [facility] Care [facility] [address] [place] [address] [address] [place] [address] Jairo Matute PA [address] [place] [address] [address] [place] [address] 01/23/2025 3:20 PM CDT Office Visit [facility] [address] [place] [address] [address] [place] [address] Gaidel Majano MD [address] [place] [address] [address] [place] [address] 08/03/2025 8:30 AM CDT Office Visit [facility] NEUROLOGY - [place] - [facility] [address] [facility] [address] [place] [address] Aliza Lion MD [address] [facility] [address] [place] [address] documented as of this encounter Visit Diagnoses Not on filedocumented in this encounter Care Teams Wirer Relationship Specialty Start Date End Date Gadiel Majano MD [address] [place] [address] [address] [place] [address] PCP - General 02/25/07 documented as of this encounter
--- OUTSIDE RECORDS SUMMARY | 2024-05-11 14:58 | XMS_ITS | Encounter Summary ---
Author Organization [facility] Address [address] [place] [address] Care Team Providers Care Cook Sauce Name Role Phone Gadiel Majano MD Primary Care Provider [phone] Reason for Visit * Reason Onset Date Comments Other 02/04/2016 Encounter Details Date Type Department Care Team (Late st Contact Info) Description 02/04/2016 Telephone [facility] Internal Medicine [address] [address] Gadiel Majano MD [address] [place] [phone] Other Social History Tobacco Use Types [...] Telephone Encounter - Erin Winter - 02/04/2016 4:49 PM CDT Completed another PA in same note Called back and provided info * Telephone Encounter - Gadiel Majano MD - 02/04/2016 1:05 PM CDT Spoke with pt she tried wellbutrin and failed it in past see hx med list Try the prior auth If fails she will look into buying it documented in this encounter Plan of Treatment Upcoming Encounters Date Type Department Care Team (Late st Contact Info) Description 05/19/2024 9:00 AM ENGINEER AUTOMATED EQUIPMENT Appointment [facility] S [facility] [address] [place] [phone] Gadiel Majano MD [address] [place], [place] [phone] 06/05/2024 8:30 AM ENGINEER AUTOMATED EQUIPMENT Appointment [facility] S [facility] [address] [place] [phone] Gadiel Majano MD [address] [place] [phone] 08/09/2024 4:00 PM CDT Office Visit [facility] [address] [address] Jairo Matute, LISA [address] [place], [place] [address] [place] [phone] 01/23/2025 3:20 PM CDT Office Visit [facility] [place] [address] [place] [address] Gadiel Majano MD [address] [place] [address] [place] [address] 08/03/2025 8:30 AM CDT Office Visit [facility] NEUROLOGY - [place] [address] [facility] [address] [place] [address] Aliza Lion MD [address] [facility] [address] [place] [address] documented as of this encounter Visit Diagnoses Not on filedocumented in this encounter Care Teams Cook Sauce Relationship Specialty Start Date End Date Gadiel Majano MD [facility] [address] [place] [address] PCP - General 02/25/07 documented as of this encounter
--- OUTSIDE RECORDS SUMMARY | 2024-05-11 14:58 | XMS_ITS | Encounter Summary ---
Author Organization [facility] Address [address] [place] [address] Care Team Providers Care Management Nurse Rn Name Role Phone Gadiel Majano MD Primary Care Provider [phone] Reason for Visit * Reason Comments Other chest and nasal cristi estion, fever on and off,body pains Encounter Details Date Type Department Care Team (Late st Contact Info) Description 07/30/2015 1:20 PM SWITCH REPAIRER Office Visit [facility] Internal Medicine [address] [address] Aminata Hammer, [address] [address] Influenza A (Primary Dx); Influenza B; Tobacco use Social History Tobacco Use Types [...] Sign Reading Time Taken Comments Blood Pressure 108/70 07/30/2015 1:19 PM SWITCH REPAIRER Pulse - - Temperature 36.6 ??C (97.9 ??F) 07/30/2015 1:19 PM CS T Respiratory Rate - - Oxygen Saturation - - Inhaled Oxygen Concentration - - Weight 74.8 kg (165 lb) 07/30/2015 1:19 PM SWITCH REPAIRER Height 165.1 cm (5' 5 ) 07/30/2015 1:19 PM SWITCH REPAIRER Body Mass Index 27.46 07/30/2015 1:19 PM SWITCH REPAIRER documented in this encounter Progress Notes * Aminata Hammer, ANP - 07/30/2015 1:29 PM CST HISTORY OF PRESENT ILLNESS Trinh Corral, a 24 y.o. female presents with a Chief Complaint of Other Subjective HPI Chief Complaint Patient presents with ??? Other chest and nasal congestion, fever on and off,body pains Pt presents with above symptoms documented by THEE, reviewed by myself with patient. Started 2 days ago chest congestion/cough Associated with fever, body aches, sore throat Denies sob/wheezing Failed otc tylenol cold/sinus utd on influenza vaccination Her most recent labs were reviewed. Diet and exercise were reviewed as noted under Social History. Current medications and allergies were updated. Patient Active Problem List Diagnosis Date Noted ??? Mirena 12/11/13 12/11/2013 ??? Recurrent UTI 06/15/2011 ??? Nausea alone 04/05/2011 ??? Hypoglycemia, Unspecified 04/18/2007 ??? Unspecified Backache 03/28/2007 Family History Problem Relation Age of Onset ??? Heart Disease Mother ??? Migraines Mother ??? Cancer Brother Myeloma & Lymphoma ??? Breast Cancer Neg Hx ??? Ovarian Cancer Maternal Grandmother ??? Colon Cancer Neg Hx Social History Other Topics Concern ??? Not on file History Alcohol Use ??? 0.5 oz/week ??? 1 Cans of beer per week Comment: SOCIALLY History Smoking status ??? Current Some Day Smoker -- 0.50 packs/day for 4 years ??? Types: Cigarettes Smokeless tobacco ??? Never Used Comment: one pack for a week Social History Narrative None on file REVIEW OF SYSTEMS Review of Systems Constitutional: Positive for fever and fatigue. Negative for chills and diaphoresis. HENT: Positive for congestion, rhinorrhea, sinus pressure and sore throat. Eyes: Negative. Respiratory: Positive for cough. Negative for shortness of breath and wheezing. Cardiovascular: Negative for chest pain and palpitations. Gastrointestinal: Negative. Endocrine: Negative. Musculoskeletal: Negative. Skin: Negative. Negative for rash. Allergic/Immunologic: Negative. Neurological: Positive for headaches. Negative for weakness. Hematological: Negative. Psychiatric/Behavioral: Negative. All other systems reviewed and are negative. Objective PHYSICAL EXAM BP 108/70 mmHg Temp(Src) 97.9 ??F (36.6 ??C) Ht 5' 5 (1.651 m) Wt 74.844 kg (165 lb) BMI 27.46 kg/m2 ? No Physical Exam Constitutional: She is oriented to person, place, and time. She appears well- developed and well-nourished. No distress. HENT: Head: Normocephalic and atraumatic. Right Ear: Tympanic membrane is bulging (clear fluid level present). Left Ear: Tympanic membrane is bulging (clear fluid level present). Nose: Mucosal edema and rhinorrhea present. Mouth/Throat: Posterior oropharyngeal erythema present. Neck: Normal range of motion. Neck supple. Cardiovascular: Normal rate, regular rhythm and normal heart sounds. Pulmonary/Chest: Effort normal and breath sounds normal. She has no wheezes. She has no rales. Musculoskeletal: Normal range of motion. Lymphadenopathy: Head (right side): Tonsillar adenopathy present. Head (left side): Tonsillar adenopathy present. She has no cervical adenopathy. Neurological: She is alert and oriented to person, place, and time. Skin: Skin is warm and dry. No rash noted. Psychiatric: She has a normal mood and affect. Vitals reviewed. Assessment ASSESSMENT and PLAN: ASSESSMENT: Encounter Diagnoses Name Primary? Influenza A Yes ??? Influenza B PLAN: Rapid influenza a/b positive Start tamiflu Tessalon tid prn Rest/fluids Suggested mucinex Discussed risk of secondary infection- call if not improving by end of the week. RTW 08/01 Orders Placed This Encounter ??? POC INFLUENZA A AND B ??? oseltamivir (TAMIFLU) 75 mg capsule ??? benzonatate (TESSALON) 200 mg capsule Pt given information on new medications including side effects and proper administration. Verbalized understanding. Informed to call with any concerns. Pt instructed to follow-up as needed and/or if symptoms fail to improve or worsen. No future appointments. CH REPAIRER documented in this encounter Plan of Treatment Upcoming Encounters Date Type Department Care Team (Late st Contact Info) Description 05/19/2024 9:00 AM SWITCH REPAIRER Appointment [facility] [address] [place] [address] Gadiel Majano MD [address] [place] [phone] 06/05/2024 8:30 AM SWITCH REPAIRER Appointment [facility] [address] [place] [address] Gadiel Majano MD [address] [place] [phone] 08/09/2024 4:00 PM CDT Office Visit [address] [address] Jairo Matute, LISA [address] [place] [address] 01/23/2025 3:20 PM CDT Office Visit [address] [address] Gadiel Majano MD [address] [place] [phone] 08/03/2025 8:30 AM CDT Office Visit [facility]UROLOGY - [place] [address] [facility] [address] [place] [address] Aliza Lion MD 621 [facility] [address] [place] [address] documented as of this encounter Procedures Procedure Name Priority Date/Time Associated Diagnosis Comments POC INFLUENZA A AND B ANTIGEN Routine 07/30/2015 2:04 PM SWITCH REPAIRER Influenza A documented in this encounter Results * POC INFLUENZA A AND B (07/30/2015 2:04 PM SWITCH REPAIRER) INFLUENZA A AG POC positive [facility] INFLUENZA B AG POC positive [facility] Nasopharyngeal 07/30/2015 2: 04 PM SWITCH REPAIRER Aminata CHOW POINT OF CARE TESTHAYLIE [facility] documented in this encounter Visit Diagnoses Diagnosis Influenza A- Primary Influenza with other respiratory manifestations Influenza B Influenza with other respiratory manifestations Tobacco use Tobacco use disorder documented in this encounter Care Teams Management Nurse Rn Relationship Specialty Start Date End Date Gadiel Majano MD [address] [place] [phone] PCP - General 02/25/07 documented as of this encounter
--- OUTSIDE RECORDS SUMMARY | 2024-05-11 14:58 | XMS_ITS | Encounter Summary ---
Author Organization [facility] Address [address] [place] [address] Care Team Providers Care Building Drafting Officer Name Role Phone Gadiel Majano MD Primary Care Provider [phone] Reason for Visit * Reason Comments Guidance Adviser Exam IUD check. Encounter Details Date Type Department Care Team (Late st Contact Info) Description 01/08/2014 4:30 PM CDT Office Visit [facility] STEEL POST INSTALLER - Medical [place] [address] [address] Yesenia Friedman DO 6[address] [facility] [address] [place] [address] IUD check up (Primary Dx) Social History Tobacco Use Types [...] Sign Reading Time Taken Comments Blood Pressure 126/82 01/08/2014 4:24 PM CDT Pulse - - Temperature - - Respiratory Rate - - Oxygen Saturation - - Inhaled Oxygen Concentration - - Weight 74.4 kg (164 lb) 01/08/2014 4:24 PM CDT Height 165.1 cm (5' 5 ) 01/08/2014 4:24 PM CDT Body Mass Index 27.29 01/08/2014 4:24 PM CDT documented in this encounter Progress Notes * Yesenia Friedman DO - 01/10/2014 5:43 PM CDT Chief Complaint: IUD Check Subjective: Trinh Corral is a 23 y.o. here today for IUD check. Patient has done well since insertion. She had some bleeding initially. ROS: No pelvic pain or cramping No fevers Objective: Blood pressure 126/82, height 5' 5 (1.651 m), weight 164 lb (74.39 kg), not currently . Gen: well appearing, no distress Abd: soft, non tender, non distended Pelvic: normal appearing external genitalia. Cervix normal in appearance. IUD strings present. No uterine tenderness. No adnexal tenderness. Ext: no calf edema Assessment and Plan: Trinh Corral is a 23 y.o. here today for IUD check 1. Doing well since insertion 2. Questions answered 3. Follow up as needed Yesenia Friedman DO documented in this encounter Plan of Treatment Upcoming Encounters Date Type Department Care Team (Late st Contact Info) Description 05/19/2024 9:00 AM COATER ASSOCIATE Appointment [facility] EEG [address] [place] [address] [place] [phone] Gadiel Majano MD [address] [place] [phone] 06/05/2024 8:30 AM COATER ASSOCIATE Appointment [facility] [address] [place] [address] [place] [phone] Gadiel Majano MD [address] [place] [address] [address] [place] [address] 08/09/2024 4:00 PM CDT Office Visit [facility] Care [address] [address] Jairo Matute PA 637 [facility] [address] [place] [address] 01/23/2025 3:20 PM CDT Office Visit [facility] Primary Care [facility] [address] [place] [address] [address] [place] [phone] Gadiel Majano MD [address] [place] [address] [address] [place] [address] 08/03/2025 8:30 AM CDT Office Visit [facility] NEUROLOGY - [facility] 5003B [address] [facility] [address] [place] [address] Aliza Lion MD 621 S [facility] [address] [place] [address] documented as of this encounter Visit Diagnoses Diagnosis IUD check up- Primary Surveillance of previously prescribed intrauterine contraceptive device documented in this encounter Care Teams Building Drafting Officer Relationship Specialty Start Date End Date Gadiel Majano MD [address] [place] [address] [address] [place] [address] PCP - General 02/25/07 documented as of this encounter
--- OUTSIDE RECORDS SUMMARY | 2024-05-11 14:58 | XMS_ITS | Encounter Summary ---
Author Organization [facility] Address [address] [place] [address] Care Team Providers Care Traffic Control Technician Name Role Phone Gadiel Majano MD Primary Care Provider [phone] Reason for Visit * Reason Comments Foot Pain Lt one Encounter Details Date Type Department Care Team (Late st Contact Info) Description 03/03/2013 11:30 AM CDT Office Visit [facility] Internal Medicine [address] [address] Gadiel Majano MD [address] [place] [address] Foot pain (Primary Dx); Recurrent UTI Social History Tobacco Use Types [...] Reading Time Taken Comments Blood Pressure 110/70 03/03/2013 11:53 AM CDT Pulse - - Temperature - - Respiratory Rate - - Oxygen Saturation - - Inhaled Oxygen Concentration - - Weight 73.9 kg (163 lb) 03/03/2013 11:53 AM CDT Height 165.1 cm (5' 5 ) 03/03/2013 11:53 AM CDT Body Mass Index 27.12 03/03/2013 11:53 AM CDT documented in this encounter Progress Notes * Gadiel Majano MD - 03/03/2013 4:05 PM CDT Left foot pain 2 weeks On feet a lot No injury diffic standing Mood ok Did not like wellbutrin Still with rec uti The patient appears alert, well appearing, and in no distress.-, Chest:clear to auscultation, no wheezes, rales or rhonchi, symmetric air entry. Heart sounds areRR Abdomen soft, nontender, no masses or organomegaly. routing equipment tender plantar ASSESSMENT: Encounter Diagnoses Name Primary? Foot pain Yes ??? Recurrent UTI abx reviewed, gio sulfa in past Hold on script Check ua and cx if sx Discussed foot may need see podiatry PLAN: Orders Placed This Encounter ??? XR FOOT 3+ VW LEFT ??? UA (URINALYSIS WITH REFLEX CULTURE) ??? meloxicam (MOBIC) 15 mg Oral tablet ??? sulfamethoxazole-trimethoprim (BACTRIM DS) 800-160 mg Oral tablet documented in this encounter Plan of Treatment Upcoming Encounters Date Type Department Care Team (Late st Contact Info) Description 05/19/2024 9:00 AM BALLASTER Appointment [facility] EEG [address] [place] [address] [place] [phone] Gadiel Majano MD [address] [place] [phone] 06/05/2024 8:30 AM BALLASTER Appointment [facility] MRI [address] [place] [address] [place] [phone] Gadiel Majano MD [address] [place] [address] [address] [place] [address] 08/09/2024 4:00 PM CDT Office Visit [facility] Primary Care [address] [address] Jairo Matute PA 637 [facility] [address] [place] [address] 01/23/2025 3:20 PM CDT Office Visit [facility] Primary Care [facility] 637 [facility] [address] [place] [phone] Gadiel Majano MD 637 [facility] [address] [place] [address] 08/03/2025 8:30 AM CDT Office Visit [facility] NEUROLOGY - [facility] 5003B [address] [facility] [address] [place] [address] Aliza Lion MD 621 S [facility] [address] [place] [address] documented as of this encounter Results * XR FOOT 3+ VW LEFT (03/08/2013) Anatomical Region Laterality Modality Ankle / Foot Other Gadiel Majano MD DIAGNOSTIC IMAGING O RDERABLES documented in this encounter Visit Diagnoses Diagnosis Foot pain- Primary Pain in limb Recurrent UTI Urinary tract infection, site not specified documented in this encounter Care Teams Traffic Control Technician Relationship Specialty Start Date End Date Gadiel Majano MD [address] [place] [address] [address] [place] [address] PCP - General 02/25/07 documented as of this encounter
--- OUTSIDE RECORDS SUMMARY | 2024-05-11 14:58 | XMS_ITS | Encounter Summary ---
Author Organization [facility] Address [address] [place] [address] Care Team Providers Care Systems Management Consultant Name Role Phone Gadiel Majano MD Primary Care Provider Reason for Visit * Reason Onset Date Comments Contraception 10/26/2013 MIRENA Encounter Details Date Type Department Care Team (Late st Contact Info) Description 10/26/2013 Telephone [facility] SMOKING PIPE DRILLER AND THREADER - Medical [address] [place] [address] Yesenia Friedman DO 621 [facility] [address] [place] [address] Contraception (MIRENA) Social History Tobacco Use [...] encounter Miscellaneous Notes * Telephone Encounter - Laila Booth - 11/30/2013 1:47 PM CDT Transferred to appt line. EDWARDS FOR DEVICE AND INSERTION. * Telephone Encounter - Laila Booth - 11/30/2013 1:36 PM CDT Per [facility], they are unable to provide benefits for pt. [facility], pt is covered at 100% for the device and insertion. No deductible, no co-insurance, no copay. No PA or referral needed. Reference # for the call is [id number]. * Telephone Encounter - Laila Booth - 11/23/2013 2:53 PM CDT Spoke to Fermin at [facility] to follow up on IUD Mirena benefits. States they are still in verification process. He is sending an expedited request for verification and pt should hear from them within 48-72 business hours. * Telephone Encounter - Laila Booth - 10/26/2013 1:22 PM CDT Faxed [facility] form to verify IUD Mirena benefits. documented in this encounter Plan of Treatment Upcoming Encounters Date Type Department Care Team (Late st Contact Info) Description 05/19/2024 9:00 AM TICKET SPECULATOR Appointment [facility] EEG S [place] [facility] [address] [place] [phone] Gadiel Majano MD [address] [place], [place] [phone] 06/05/2024 8:30 AM TICKET SPECULATOR Appointment [facility] [address] [place] [address] [place] [address] Gadiel Majano MD [address] [place] [phone] 08/09/2024 4:00 PM CDT Office Visit [facility] [place] [address] Jairo Matute PA [address] [place] [address], [place] [phone] 01/23/2025 3:20 PM CDT Office Visit [facility] Primary Care [facility] 637 [facility] [address] [place] [phone] Gadiel Majano MD [address] [place] [address] [address] [place] [phone] 08/03/2025 8:30 AM CDT Office Visit [facility] NEUROLOGY - [facility] 5003B [address] [facility] [address] [place] [address] Aliza Lion MD 621 S [facility] [address] [place] [address] documented as of this encounter Visit Diagnoses Not on filedocumented in this encounter Care Teams Systems Management Consultant Relationship Specialty Start Date End Date Gadiel Majano MD [address] [place] [address] [address] [place] [address] PCP - General 02/25/07 documented as of this encounter
--- OUTSIDE RECORDS SUMMARY | 2024-05-11 14:58 | XMS_ITS | Encounter Summary ---
Author Organization [facility] Address [address] [place] [address] Care Team Providers Care Behavioral Health Tech Name Role Phone Gadiel Majano MD Primary Care Provider [phone] Reason for Visit * Reason Comments Medication Refill Encounter Details Date Type Department Care Team (Late st Contact Info) Description 03/20/2013 Refill [facility] COMMERCIAL INSURANCE UNDERWRITER - Medical [address] [place] [address] Yesenia Friedman DO 621 [facility] [address] [place] [address] Social History Tobacco Use Types Packs/Day [...] encounter Miscellaneous Notes * Telephone Encounter - Cherelle Box - 03/20/2013 4:00 PM CDT Last WWE 10.03.13 documented in this encounter Plan of Treatment Upcoming Encounters Date Type Department Care Team (Late Contact Info) Description 05/19/2024 9:00 AM PLASTIC SURGERY COORDINATOR Appointment [facility] Support Services EEG S [facility] [address] [place] [address] Gadiel Majano MD [address] [place] [phone] 06/05/2024 8:30 AM PLASTIC SURGERY COORDINATOR Appointment [facility] S [facility] [address] [place] [address] Gadiel Majano MD [address] [place] [phone] 08/09/2024 4:00 PM CDT Office Visit [address], [place] [address] Jairo Matute PA [address] [place] [phone] 01/23/2025 3:20 PM CDT Office Visit [address] [address] Gadiel Majano MD [address] [place] [phone] 08/03/2025 8:30 AM CDT Office Visit [facility] - [place] - [facility] 5003B 621 S [facility] [address] [place] [address] Aliza Lion MD [address] [facility] [address] [place] [address] documented as of this encounter Visit Diagnoses Not on filedocumented in this encounter Care Teams Behavioral Health Tech Relationship Specialty Start Date End Date Gadiel Majano MD [address] [place] [phone] PCP - General 02/25/07 documented as of this encounter
--- OUTSIDE RECORDS SUMMARY | 2024-05-11 14:58 | XMS_ITS | Encounter Summary ---
Author Organization [facility] Address [address] [place] [address] Care Team Providers Care National Sales Manager Name Role Phone Gadiel Majano MD Primary Care Provider [phone] Reason for Visit * Reason Comments Well Woman Exam Encounter Details Date Type Department Care Team (Latest Contact Info) Description 08/28/2015 4:00 PM CDT Office Visit [facility] ELEVATING GRADER OPERATOR - Medical [place] [address] Yesenia Friedman DO 621 [facility] [address] [place] [address] Well woman exam with routine gynecological exam (Primary Dx); STD (sexually transmitted disease) Social History Tobacco Use Types Packs/Day Years [...] Sign Reading Time Taken Comments Blood Pressure 118/70 08/28/2015 4:00 PM CDT Pulse - - Temperature - - Respiratory Rate - - Oxygen Saturation - - Inhaled Oxygen Concentration - - Weight 75.8 kg (167 lb) 08/28/2015 4:00 PM CDT Height 165.1 cm (5' 5 ) 08/28/2015 4:00 PM CDT Body Mass Index 27.79 08/28/2015 4:00 PM CDT documented in this encounter Progress Notes * Yesenia Friedman, DO - 08/31/2015 9:28 PM CDT CC: Well-Woman Exam HPI: Trinh Corral is a 25 y.o. who presents today for her annual well- woman exam. She denies any gynecologic complaints today. She is using mirena for contraception, and she states that she is satisfied with this method. Does not have periods. 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 Medical History: UTI Surgical History: Tonsillectomy Lymph node removal Family History: Denies family history of breast cancer, or colon cancer Ovarian ca- MGM Social History: Denies alcohol, or illicit drugs. Medications: Current Outpatient Prescriptions on File Prior to Visit Medication Sig Dispense Refill ??? benzonatate (TESSALON) 200 mg capsule Take 1 Capsule (200 mg) by mouth 3 times daily. 30 Capsule 0 No current facility-administered medications on file prior to visit. Allergies: Allergies Allergen Reactions ??? Ciprofloxacin Nausea and Vomiting ??? Keflex [Cephalexin] Nausea and Vomiting ??? Macrobid [Nitrofurantoin Monohyd/M-Cryst] Nausea and Vomiting Review of Systems: As above. Denies nausea, vomiting, chest pain, shortness of breath, headache, bowel or bladder complaints, abdominal pain, or unintentional changes in weight. Physical Exam: Filed Vitals: 08/28/15 1600 BP: 118/70 Height: 5' 5 (1.651 m) Weight: 75.751 kg (167 lb) General: Well-developed, well-nourished female in [facility] HEENT: Normocephalic, atraumatic Breast: Equal in size and shape bilaterally. No lesions, palpable masses, or abnormal discharge noted Abdomen: Soft, nontender, nondistended, no rebound/guarding Extremities: No clubbing, cyanosis, or edema. No calf tenderness. Pelvic: Normal appearing external genitalia. Cervix well visualized and no lesions noted. IUD strings in place No adnexal masses or fullness noted bilaterally. No cervical motional tenderness. Assessment/Plan: Trinh Corral is a 25 y.o. here today for Well-Woman Exam 1. Patient with no specific complaints 2. Exam today unremarkable, Pap smear was obtained 3. Health Maintenance - Self breast exam 4. Contraception- mirena 5. Patient instructed to return to office in one year for well woman exam uless need arises prior to that time. Yesenia Friedman DO documented in this encounter Plan of Treatment Upcoming Encounters Date Type Department Care Team (Late st Contact Info) Description 05/19/2024 9:00 AM PARTS ANALYST Appointment [facility] EEG [address] [place] [address] [place] [address] Gadiel Majano MD [address] [place] [phone] 06/05/2024 8:30 AM PARTS ANALYST Appointment [facility] [address] [place] [address] [place] [phone] Gadiel Majano MD [address] [place] [address] 08/09/2024 4:00 PM CDT Office Visit [address] [place] [address] Jairo Matute, LISA [address] [place] [address] [address] [place] [address] 01/23/2025 3:20 PM CDT Office Visit [address] [place] [address] Gadiel Majano MD [address] [place] [address] [address] [place] [phone] 08/03/2025 8:30 AM CDT Office Visit [facility] NE[facility]OLOGY - [place] [facility] - [facility] 5003B [address] [facility] [address] [place] [address] Aliza Lion MD 6[address] [facility] [address] [place] [phone] documented as of this encounter Procedures Procedure Name Priority Date/Time Associated Diagnosis Comments CHLAMYDIA AND GC, PAP VIAL Routine 08/28/2015 4:39 PM CDT STD (sexually transmitted disease) CERV/VAG CYTO SCREEN PAP RLFX HPV Routine 08/28/2015 3:55 PM CDT Well woman exam with routine gynecological exam documented in this encounter Results * CHLAMYDIA AND GC, PAP VIAL (08/28/2015 4:39 PM CDT) C TRAC RNA NOT DETECTED NOT DETECTED 08/30/2015 4:35 PM CDT [facility] N.GONORRHOEAE RNA, TMA NOT DETECTED NOT DETECTED 08/30/2015 4:35 PM CDT [facility] COMMENT SEE COMMENT 08/30/2015 4:35 PM CDT [facility] Comment: This test was performed using the APTIMA COMBO2 Assay ([employer] The analytical performance characteristics of this assay, when used to test SurePath specimens have been determined by [facility]. ?? Endocervical Collection / Unknown 08/28/2015 4:39 PM CDT 08/28/2015 7:29 PM CDT Narrative [facility] - 08/30/2015 4:35 PM CDT Performing Organization Information: ?Site ID: [id number] ?Name: [facility] ?Address: [facility] Administration [place] [address] ?Director: Natali Adler MD Yesenia Friedman DO BODY FLUIDS AND STOO LS COM [facility] [address] [place] [address], * CERV/VAG CYTOPATH, THIN PREP IMAGR RFLX HPV (CP) (08/28/2015 3:55 PM CDT) CLINICAL INFORMATION SEE COMMENT 09/03/2015 12:20 PM CDT [facility] Comment:Information not prov ided LAST MENSTRUAL PERIOD SEE COMMENT 09/03/2015 12:20 PM CDT [facility] Comment:INFORMATION NOT PROV IDED PREV PAP: SEE COMMENT 09/03/2015 12:20 PM CDT [facility] Comment:NIL 12/12/13 PREV BX: SEE COMMENT 09/03/2015 12:20 PM CDT [facility] Comment:INFORMATION NOT PROV IDED SOURCE Endocervix 09/03/2015 12:20 PM CDT [facility] ADEQUACY: SEE COMMENT 09/03/2015 12:20 PM CDT [facility] Comment: Satisfactory for evaluation. Endocervical/transformation zone component absent. Age and/or menstrual status not provided INTERPRETATION SEE COMMENT 09/03/2015 12:20 PM CDT [facility] Comment:Negative for intraep ithelial lesion or malignancy. COMMENT SEE COMMENT 09/03/2015 12:20 PM CDT [facility] Comment: This Pap test has been evaluated with computer assisted technology. 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 [address] Endocervical Collection / Unknown 08/28/2015 3:55 PM CDT 08/28/2015 7:29 PM CDT Narrative [facility] - 09/03/2015 12:20 PM CDT Performing Organization Information: ?Site ID: [id number] ?Name: [facility] ?Address: [facility] Administration [place] [address] ?Director: Natali Adler MD Yesenia Friedman DO PATHOLOGY/CYTOLOGY O RDERABLES [facility] [address] [address] [address], [place] documented in this encounter Visit Diagnoses Diagnosis Well woman exam with routine gynecological exam- Primary Routine gynecological examination STD (sexually transmitted disease) Venereal disease, unspecified documented in this encounter Care Teams National Sales Manager Relationship Specialty Start Date End Date Gadiel Majano MD [address] [place] [phone] PCP - General 02/25/07 documented as of this encounter
--- OUTSIDE RECORDS SUMMARY | 2024-05-11 14:59 | XMS_ITS | Encounter Summary ---
Author Organization [facility] Address [address] [place] [address] Care Team Providers Care Cab Driver Name Role Phone Gadiel Majano MD Primary Care Provider Reason for Visit * Reason Comments Nodule On right side of nec k. Found it a weel ago. Denies pain Encounter Details Date Type Department Care Team (Latest Contact Info) Description 06/27/2012 3:00 PM CASHIER SELF SERVICE GASOLINE Office Visit [facility] Internal Medicine [address] [phone] Gadiel Majano MD [address] [place] [phone] Lymphadenopathy (Primary Dx); Unspecified Backache; Hypoglycemia, unspecified; Routine general medical examination at a health care facility Social History Tobacco Use Types Packs/Day Years Used Date Smoking Tobacco: Some Days Cigarettes 1 2 Smokeless Tobacco: Never Comments:one pack for a week Alcohol Use Standard Drinks/Week Comments Yes 0.8 (1 standard drink = 0.6 oz p ure alcohol) accas. Sex and Gender Information Value Date Recorded Sex Assigned at Not on file Gender Identity Not on file Sexual Orientation Not on file documented as of this encounter Last Filed Vital Signs Vital Sign Reading Time Taken Comments Blood Pressure 118/72 06/27/2012 3:26 PM CASHIER SELF SERVICE GASOLINE Pulse - - Temperature - - Respiratory Rate - - Oxygen Saturation - - Inhaled Oxygen Concentration - - Weight 76.7 kg (169 lb) 06/27/2012 3:26 PM CASHIER SELF SERVICE GASOLINE Height 167.6 cm (5' 6 ) 06/27/2012 3:26 PM CASHIER SELF SERVICE GASOLINE Body Mass Index 27.28 06/27/2012 3:26 PM CASHIER SELF SERVICE GASOLINE documented in this encounter Progress Notes * Gadiel Majano MD - 06/27/2012 5:47 PM CST Subjective: Trinh Corral is a 21 y.o. female. Prev visit Right lat cerv ln noted No sx x 7-10 d No scalp issues no other ln noted Headaches ok Smoking Back doing ok Patient Active Problem List Diagnoses Date Noted ??? Recurrent UTI 06/15/2011 ??? Nausea alone 04/05/2011 ??? Hypoglycemia, Unspecified 04/18/2007 ??? Unspecified Backache 03/28/2007 Current Outpatient Prescriptions on File Prior to Visit Medication Sig Dispense Refill ??? ALPRAZolam (XANAX) 0.25 mg Oral tablet Take 1 Tab by mouth 2 times daily as needed for Anxiety.40 Tab 2 Allergies Allergen Reactions ??? Ciprofloxacin Nausea and Vomiting ??? Keflex (Cephalexin) Nausea and Vomiting ??? Macrobid (Nitrofurantoin Monohyd/M-Cryst) Nausea and Vomiting Past Medical History Diagnosis Date ??? UTI (urinary tract infection) ??? Kyphosis (acquired) (postural) Past Surgical History Procedure Date ??? Hx tonsillectomy ??? Hx wisdom teeth extraction Family History Problem Relation Age of Onset ??? Heart Disease Mother ??? Migraines Mother ??? Cancer Brother Myeloma & Lymphoma ??? Breast Cancer Neg Hx History Substance Use Topics ??? Smoking status: Current Some Day Smoker -- 1.0 packs/day for 2 years ??? Smokeless tobacco: Never Used Comment: one pack for a week ??? Alcohol Use: 0.5 oz/week 1 Cans of beer per week accas. Review of Systems: During the review of [...] bowel habits, constipation, diarrhea, dsyphagia,reflux symptoms, vomiting Genitourinary: denies dysuria, frequency, incontinence, urgency Integementary, none noted Hematologic, Oncologic, Lymphatic: denies: bruising, bleedingEndocrine: denies sudden changes in mood, temperature intolerance, occhypoglycemia reviewed Allergy: denies hives, swelling of extremities, issues with food, episodic puritis, chronic rhinitis, recurrent cough, seasonal issues Exam/Objective: Normal Female: Blood pressure 118/72, height 5' 6 (1.676 m), weight 169 lb (76.658 kg). General appearance: active, alert, cooperative, no distress, social Head: Normocephalic, without obvious abnormality, atraumatic Eyes: conjunctivae/corneas clear. PERRLA, EOM's intact. Fundi benign Ears: normal TM's and external ear canals [...] symmetric Skin: Skin color, texture, turgor normal. No rashes or lesions Lymph nodes: Cervical as above x 1, no, supraclavicular, No axillary. Neurologic: Grossly normal, cranial nerves II-XII grossly intact, , normal speech, normal gait. Fundi clear, pupier ERR Assessment and Plan: ASSESSMENT: 1. Lymphadenopathy CBC WITH DIFFERENTIAL 2. Unspecified Backache 3. Hypoglycemia, unspecified 4. Routine general medical examination at a health care facility COMPREHENSIVE METABOLIC PANEL, LIPID PANEL, TSH It is very important that she quit smoking. There are various alternatives available to help with this difficult task, but first and foremost, she must make a firm commitment and decision to quit. The nature of nicotine addiction is discussed. The correct use, cost and side effects of nicotine replacement therapy such as gum or patches is discussed. Bupropion and its cost (sometimes not covered fully by insurance) and side effects are reviewed. Chantix reviewed, side effects reviewed. The quit rates are discussed. I recommend she not allow potential costs of treatment to deter her from using nicotine replacement therapy or bupropion or Chantix, as the exterminator helper termite economic and health benefits a re obvious. Pt not interested in meds, discussed importance of cessation at length Ln reviewed with pt and mom, brother with Hodgkins, give z robert if persist, refer ENT for possible bx Check lab Back stable Advise fu weigher and grader Diet and exercise reviewed PLAN: Orders Placed This Encounter ??? CBC WITH DIFFERENTIAL ??? COMPREHENSIVE METABOLIC PANEL ??? LIPID PANEL ??? TSH ??? azithromycin (ZITHROMAX) 250 mg Oral tablet Appropriate medications prescribed Appropriate patient instructions provided Follow-up as I have indicated. Medications and options explained to include common side effects. Understanding of medications, course, diagnosis, and expectations were expressed by patient/guardian. IER SELF SERVICE GASOLINE documented in this encounter Plan of Treatment Upcoming Encounters Date Type Department Care Team (Late st Contact Info) Description 05/19/2024 9:00 AM CASHIER SELF SERVICE GASOLINE Appointment [facility] EEG S [employer] [address] [place] [phone] Gadiel Majano MD [address] [place] [phone] 06/05/2024 8:30 AM CASHIER SELF SERVICE GASOLINE Appointment [facility] [address] [place] [address] [place] [address] Gadiel Majano MD [address] [place] [phone] 08/09/2024 4:00 PM CDT Office Visit [facility] [address] [place] [address] [address] [place] [address] Jairo Matute PA [address] [place] [address] [address] [place] [phone] 01/23/2025 3:20 PM CDT Office Visit [address] [place] [address] Gadiel Majano MD [address] [place] [address] [address] [place] [address] 08/03/2025 8:30 AM CDT Office Visit [facility] [address] [facility] [address] [place] [address] Aliza Lion MD [address] [facility] [address] [place] [address] documented as of this encounter Procedures Procedure Name Priority Date/Time Associated Diagnosis Comments CBC WITH DIFFERENTIAL Routine 06/28/2012 8:31 AM CASHIER SELF SERVICE GASOLINE TSH Routine 06/28/2012 8:31 AM CASHIER SELF SERVICE GASOLINE LIPID PANEL Routine 06/28/2012 8:31 AM CASHIER SELF SERVICE GASOLINE COMPREHENSIVE METABOLIC PANEL Routine 06/28/2012 8:31 AM CASHIER SELF SERVICE GASOLINE documented in this encounter Results * TSH (06/28/2012 8:31 AM CASHIER SELF SERVICE GASOLINE) TSH 1.71 mIU/L [facility] Comment: ?Reference Range ?> or = 20 Years ??0.40-4.50 ? Ranges ?First trimester ?0.26-2.66 ?Second trimester ?? 0.55-2.73 ?Third trimester ?0.43-2.91 Test Performed at: [facility] [place] [address] [place], [place] ??[address] BROOK ORTIZ DO,MPH 06/28/2012 8:31 AM CASHIER SELF SERVICE GASOLINE Gadiel Majano MD CHEMISTRY ORDERABLES INTERFACE SYSTEM Refer to clinic/hospital department [facility] [address] [place] [address] * (ABNORMAL) COMPREHENSIVE METABOLIC PANEL (06/28/2012 8:31 AM CASHIER SELF SERVICE GASOLINE) GLUCOSE 82 65 - 99 mg/dL [facility] Ali [facility] Comment:Fasting reference in terval BUN 10 7 - 25 mg/dL [facility] Ali . [facility] CREATININE 0.75 0.50 - 1.10 mg/dL [facility] GFR 114 > OR = 60 mL/min/1 .73m2 [facility] GFR, 132 > OR = 60 mL/min/1 .73m2 [facility] . [facility] BUN/CREAT RATIO NOT APPLICABLE 6 - 22 (calc) [facility] SODIUM 139 135 - 146 mmol/L [facility] . [facility] POTASSIUM 3.8 3.5 - 5.3 mmol/L [facility] CHLORIDE 105 98 - 110 mmol/L [facility] . [facility] CO2 26 19 - 30 mmol/L [facility] CALCIUM 9.7 8.6 - 10.2 mg/dL [facility] TOTAL PROTEIN 6.9 6.1 - 8.1 g/dL [facility] ALBUMIN 4.4 3.6 - 5.1 g/dL [facility] . [facility] GLOBULIN 2.5 1.9 - 3.7 g/dL (calc) [facility] Ali [facility] ALBUMIN/GLOBULI N RATIO 1.8 1.0 - 2.5 (calc) [facility] BILIRUBIN TOTAL 0.5 0.2 - 1.2 mg/dL [facility] ALKALINE PHOSPHATASE 105 33 - 115 U/L [facility] AST 46(H) 10 - 30 U/L [facility] ALT 22 6 - 40 U/L [facility] Comment: Test Performed at: [facility] [address] [place], [place] ??[address] BROOK ORTIZ DO,MPH 06/28/2012 8:31 AM CASHIER SELF SERVICE GASOLINE Gadiel Majano MD CHEMISTRY ORDERABLES Performing Organization Address [facility] Phone Number INTERFACE SYSTEM Refer to clinic/hospital department [facility] [address] [place] [address] * LIPID PANEL (06/28/2012 8:31 AM CASHIER SELF SERVICE GASOLINE) CHOLESTEROL 144 125 - 200 mg/dL [facility] Comment: Test Performed at: [facility] ??[address] BROOK ORTIZ DO,MPH HDL 57 > OR = 46 mg/dL [facility] Ali [facility] TRIGLYCERIDE 93 <150 mg/dL [facility] LDL CALCULATED 68 <130 mg/dL (calc) [facility] Comment: Desirable range <100 mg/dL for patients with CHD or diabetes and <70 mg/dL for diabetic patients with known heart disease. CHOL/HDL RATIO 2.5 < OR = 5.0 (calc) [facility] TOTAL NON-HDL CHOL(LDL+VLDL) 87 mg/dL (calc) [facility] Comment: Target for non-HDL cholesterol is 30 mg/dL higher than LDL cholesterol target. 06/28/2012 8:31 AM CASHIER SELF SERVICE GASOLINE Gadiel Majano MD CHEMISTRY ORDERABLES Performing Organization Address [facility] Phone Number INTERFACE SYSTEM Refer to clinic/hospital department [facility] [address] [place] [address] * CBC WITH DIFFERENTIAL (06/28/2012 8:31 AM CASHIER SELF SERVICE GASOLINE) WBC 8.1 3.8 - 10.8 Thousand/u L [facility] RBC 4.42 3.80 - 5.10 Million/uL [employer] [facility] HEMOGLOBIN 13.7 11.7 - 15.5 g/dL [facility] [place] HEMATOCRIT 42.5 35.0 - 45.0 % [facility] [place] MCV 96.1 80.0 - 100.0 fL [facility] [place] MCH 31.0 27.0 - 33.0 pg [facility] [place] MCHC 32.2 32.0 - 36.0 g/dL [facility] [place] RDW 14.2 11.0 - 15.0 % [facility] [place] PLATELETS 249 140 - 400 Thousand/u L [facility] [place] NEUTROPHIL ABSOLUTE 5,419 1,500 - 7,800 cells/uL [facility] [place] LYMPHOCYTE ABSOLUTE 1,725 850 - 3,900 cells/uL [facility] [place] MONOCYTE ABSOLUTE 705 200 - 950 cells/uL [facility] [place] EOSINOPHIL ABSOLUTE 219 15 - 500 cells/uL [facility]NOSTICS . [place] BASOPHILS ABSOLUTE 32 0 - 200 cells/uL [facility] [place] NEUTROPHIL 66.9 % [facility] [place] LYMPHOCYTES 21.3 % [employer] [facility] [place] MONOCYTE 8.7 % [facility] [place] EOSINOPHILS 2.7 % [facility] [place] BASOPHILS 0.4 % [facility] [place] Comment: Test Performed at: [facility] [address] ??[address] BROOK ORTIZ DO,MPH 06/28/2012 8:31 AM CASHIER SELF SERVICE GASOLINE Gadiel Majano MD HEMATOLOGY ORDERABLE S INTERFACE SYSTEM Refer to clinic/hospital department [facility] DIAGNOSTICS [facility] [address] [place] [address] documented in this encounter Visit Diagnoses Diagnosis Lymphadenopathy- Primary Enlargement of lymph nodes Unspecified Backache Backache, unspecified Hypoglycemia, unspecified Routine general medical examination at a health care facility documented in this encounter Care Teams Cab Driver Relationship Specialty Start Date End Date Gadiel Majano MD [address] [place] [address] [place] [address] PCP - General 02/25/07 documented as of this encounter
--- OUTSIDE RECORDS SUMMARY | 2024-05-11 14:59 | XMS_ITS | Encounter Summary ---
Author Organization [facility] Address [address] [place] [address] Care Team Providers Care Dye Worker Name Role Phone Gadiel Majano MD Primary Care Provider [phone] Reason for Visit * Reason Comments Upper Respiratory Symptoms Encounter Details Date Type Department Care Team (Late st Contact Info) Description 12/25/2011 1:15 PM CDT Office Visit [facility] Internal Medicine [address] [phone] Ktaey Nash NP [address] [place] [address] Acute sinusitis (Primary Dx) Social History Tobacco Use Types [...] Reading Time Taken Comments Blood Pressure 110/80 12/25/2011 1:14 PM CDT Pulse - - Temperature 36.6 ??C (97.9 ??F) 12/25/2011 1:14 PM CD T Respiratory Rate - - Oxygen Saturation - - Inhaled Oxygen Concentration - - Weight 73 kg (161 lb) 12/25/2011 1:14 PM CDT Height 167.6 cm (5' 6 ) 12/25/2011 1:14 PM CDT Body Mass Index 25.99 12/25/2011 1:14 PM CDT documented in this encounter Progress Notes * Katey Nash NP - 12/25/2011 1:26 PM CDT HISTORY OF PRESENT ILLNESS Trinh Corral, a 21 y.o. female. HPI presents with sinus congestion and cough since Wednesday-has taken OTC meds and not getting better. Nasal drainage. Sinus h/a-OTC meds tylenol cold and sinus hasn't helped provide relief REVIEW OF SYSTEMS Review of Systems Constitutional: Positive for fever and fatigue. Negative for chills. HENT: Positive for congestion, postnasal drip and sinus pressure. Respiratory: Positive for cough. Negative for shortness of breath and wheezing. Cardiovascular: Negative. PHYSICAL EXAM BP 110/80 Temp(Src) 97.9 ??F (36.6 ??C) (Oral) Ht 5' 6 (1.676 m) Wt 161 lb (73.029 kg) BMI25.99 kg/m2 Physical Exam Constitutional: She is oriented to person, place, and time. She appears well- developed and well-nourished. No distress. HENT: Head: Normocephalic and atraumatic. Right Ear: External ear normal. Mouth/Throat: Oropharynx is clear and moist. No oropharyngeal exudate. Left TM mild otitis media-TM intact-right TM normal. turbinates boggy. Neck: Normal range of motion. Neck supple. Cardiovascular: Normal rate, regular rhythm and normal heart sounds. Exam reveals no gallop and no friction rub. No murmur heard. Pulmonary/Chest: Effort normal and breath sounds normal. She has no wheezes. She has no rales. Lymphadenopathy: She has no cervical adenopathy. Neurological: She is alert and oriented to person, place, and time. Skin: Skin is warm and dry. Psychiatric: She has a normal mood and affect. Her behavior is normal. Judgment and thought contentnormal. ASSESSMENT and PLAN: 1. Acute sinusitis azithromycin (ZITHROMAX) 250 mg Oral tablet, methylPREDNISolone (MEDROL DOSPACK)4 mg Oral DsPk, pseudoephedrine-guaiFENesin (MUCINEX D) 60-600 mg Oral Tb12, fluticasone (FLONASE) 50 mcg/spray Both Nostril SpSn documented in this encounter Plan of Treatment Upcoming Encounters Date Type Department Care Team (Late st Contact Info) Description 05/19/2024 9:00 AM SHREDDING SPECIALIST Appointment [facility] EEG S [facility] [address] [place] [phone] Gadiel Majano MD [address] [place] [phone] 06/05/2024 8:30 AM SHREDDING SPECIALIST Appointment [facility] S [facility] [address] [place] [phone] Gadiel Majano MD [address] [place] [phone] 08/09/2024 4:00 PM CDT Office Visit [facility] Care [place] [address] [place] [address] Jairo Matute, LISA [address] [place], [place] [address] [place] [address] 01/23/2025 3:20 PM CDT Office Visit [place] [address] [place] [address] Gadiel Majano MD [address] [place] [phone] 08/03/2025 8:30 AM CDT Office Visit [facility] - [place] [facility] - [facility] [address] [facility] [address] [place] [address] Aliza Lion MD [address] [facility] [address] [place] [address] documented as of this encounter Visit Diagnoses Diagnosis Acute sinusitis- Primary Acute sinusitis, unspecified documented in this encounter Care Teams Dye Worker Relationship Specialty Start Date End Date Gadiel Majano MD [address] [place] [phone] PCP - General 02/25/07 documented as of this encounter
--- OUTSIDE RECORDS SUMMARY | 2024-05-11 14:59 | XMS_ITS | Encounter Summary ---
Author Organization [facility] Address [address] [place] [address] Care Team Providers Care Beauty Sales Consultant Name Role Phone Gadiel Majano MD Primary Care Provider Reason for Visit * Reason Onset Date Comments Other 06/29/2012 Encounter Details Date Type Department Care Team ([facility] Contact Info) Description 06/29/2012 Telephone [facility] Internal Medicine [address] [phone] Gadiel Majano MD [address] [place] [phone] Other Social History Tobacco Use Types [...] (Late Contact Info) Description 05/19/2024 9:00 AM ART THERAPY SPECIALIST Appointment [facility] EEG [address] [place] [address] [place] [phone] Gadiel Majano MD [address] [place] [phone] 06/05/2024 8:30 AM ART THERAPY SPECIALIST Appointment [facility] S [facility] [address] [place] [address] Gadiel Majano MD [address] [place] [address] [address] [place] [phone] 08/09/2024 4:00 PM CDT Office Visit [facility] Care [facility] [address] [place] [address] [address] [place] [address] Jairo Matute PA [address] [place] [address] [address] [place] [address] 01/23/2025 3:20 PM CDT Office Visit [facility] [address] [place] [address] [address] [place] [address] Gadiel Majano MD [address] [place] [address] [address] [place] [address] 08/03/2025 8:30 AM CDT Office Visit [facility]OLOG[facility] - [place] B - [facility] [address] [facility] [address] [place] [address] Aliza Lion MD [address] [facility] [address] [place] [address] documented as of this encounter Visit Diagnoses Not on filedocumented in this encounter Care Teams Beauty Sales Consultant Relationship Specialty Start Date End Date Gadiel Majano MD [address] [place] [address] [address] [place] [address] PCP - General 02/25/07 documented as of this encounter
--- OUTSIDE RECORDS SUMMARY | 2024-05-11 14:59 | XMS_ITS | Encounter Summary ---
Author Organization [facility] Address [address] [place] [address] Care Team Providers Care Sharepoint Developer Name Role Phone Gadiel Majano MD Primary Care Provider [phone] Reason for Visit * Reason Onset Date Comments Information 09/29/2011 Encounter Details Date Type Department Care Team (Late st Contact Info) Description 09/29/2011 Telephone [facility] CHIP LOFT WORKER - Medical [facility] [address] [facility] [address] [phone] Chyna Witt MD [address] [facility] [address] [place] [address] Information Social History Tobacco Use Types Packs/Day Years [...] encounter Miscellaneous Notes * Telephone Encounter - Chyna Witt MD - 09/29/2011 7:46 PM CDT Had first period after removing nuvaring It was tissue-like Not sure if she is I told her tot gerardo test and if pos- could be an SAB Gave precautions re: bleeding Call and make appt in office if problems persist or pos UPT documented in this encounter Plan of Treatment Upcoming Encounters Date Type Department Care Team (Late st Contact Info) Description 05/19/2024 9:00 AM CONTROL DIRECTOR Appointment [facility] EEG S [facility] [address] [phone] Gadiel Majano MD [address] [place] [address] [address] [place] [phone] 06/05/2024 8:30 AM CONTROL DIRECTOR Appointment [facility] S [facility] [address] [phone] Gadiel Majano MD [address] [place] [phone] 08/09/2024 4:00 PM CDT Office Visit [facility] Care [address] [place] [address] Jairo Mattue PA [address] [place], [place] [address] [address] 01/23/2025 3:20 PM CDT Office Visit [place] [address] [place] [phone] Gadiel Majano MD [address] [place] [address] [address] [place] [address] 08/03/2025 8:30 AM CDT Office Visit [facility] - [place] [address] [facility] [address] [place] [address] Aliza Lion MD [address] [facility] [address] [place] [address] documented as of this encounter Visit Diagnoses Not on filedocumented in this encounter Care Teams Sharepoint Developer Relationship Specialty Start Date End Date Gadiel Majano MD [address] [place] [phone] PCP - General 02/25/07 documented as of this encounter
--- OUTSIDE RECORDS SUMMARY | 2024-05-11 14:59 | XMS_ITS | Encounter Summary ---
Author Organization [facility] Address [address] [place] [address] Care Team Providers Care Test Facility Engineer Name Role Phone Gadiel Majano MD Primary Care Provider [phone] Reason for Visit * Auth/Cert - Closed Specialty Diagnoses / Procedures Referred By Contac t Referred To Contact General Surgery Diagnoses NECK MASS Procedures SKIN CYST LESION MASS EXCISION [facility] Or [address] [place] [address] Referral ID Status Reason Start Date Expiration Date Visits Re quested Visits Authorized [id number] Closed 1 1 Encounter Details Date Type Department Care Team (Late st Contact Info) Description 07/18/2012 7:15 AM PRO SHOP ATTENDANT - 07/18/2012 8:25 AM PRO SHOP ATTENDANT Surgery [facility] Operating Room [address] [place] [address] Jose Angel Key MD [address] [facility] [place] [address] CERVICAL LYMPH NODE BIOPSY/EXCISION Surgery Details Date/Time Status Location OR Service Patient Class Case Class Case Type Trauma Case? 07/18/2012 7:15 AM Posted [facility] OR MAIN OR 20 Otorhinolaryngology Surgical OP/Extende d Care Elective No Panel 1 Procedure LRB Anes Op Region Wound Class Comments CERVICAL LYMPH NODE BIOPSY/EXCISION Right General Neck Clean-I Surgeon Surgeon Role Service Panel Jose Angel Key MD Primary Otorhinolaryngology 1 Case Notes AETNA, NN, CPT: 39680 documented in this encounter Social History Tobacco Use Types Packs/Day [...] Sign Reading Time Taken Comments Blood Pressure 102/56 07/18/2012 8:25 AM PRO SHOP ATTENDANT Pulse 69 07/18/2012 6:18 AM PRO SHOP ATTENDANT Temperature 38 ??C (100.4 ??F) 07/18/2012 8:11 AM PRO SHOP ATTENDANT Respiratory Rate 16 07/18/2012 8:25 AM PRO SHOP ATTENDANT Oxygen Saturation 99% 07/18/2012 8:25 AM PRO SHOP ATTENDANT Inhaled Oxygen Concentration - - Weight 76.9 kg (169 lb 9.6 oz) 07/18/2012 6:03 A M PRO SHOP ATTENDANT Height 167.6 cm (5' 6 ) 07/12/2012 11:10 AM PRO SHOP ATTENDANT Body Mass Index 27.37 07/12/2012 11:10 AM PRO SHOP ATTENDANT documented in this encounter Discharge Instructions * Discharge Instructions* Yessy Goel, RN - 07/18/2012 9:19 AM PRO SHOP ATTENDANT SAFETY For the next 24 hours, you may feel sleepy due to medicines used during your procedure. For the next 24 hour period or while you are on pain medication, DO NOT make any important decisions or sign any important papers. DO NOT drink any alcoholic beverages, including beer. DO NOT drive a car or operate machinery and power tools. For your safety and protection, we strongly recommend that a responsible adult be with you today and throughout the night. Medication Pain Medication given at . Next dose due at , if needed. ADDITIONAL INFORMATION Once you are home, if you develop any of the following symptoms, call your physician. Difficulty in breathing, persistent nausea or vomiting, pain that is unusual, excessive swelling orredness at incision site, trouble swallowing, temperature greater than 101 degrees, excessive bleeding at incision site. If you cannot contact your physician, call or come to the Emergency Room at [facility] ([phone]) or the nearest Emergency Room. In an emergency, Call 911. Keep wound dry for 48 hours No lifting bending straining for one week Call for appointment in one week Resume home meds unless otherwise directed SHOP ATTENDANT documented in this encounter Medications at Time of Discharge Medication Sig Dispensed Refills Start Date End Date ALPRAZolam (XANAX) 0.25 mg Oral tablet Take 1 Tab by mouth 2 times daily as needed for Anxiety. 40 Tab 2 09/09/2011 07/30/2015 documented as of this encounter Progress Notes * Yessy Goel RN - 07/18/2012 10:06 AM CST Chest rash resolved. SHOP ATTENDANT * Yessy Goel RN - 07/18/2012 9:39 AM CST Pt. Now scratching chest. 12.5 mg benadryl given. Pt. Stated wants to go home if rash subsides. SHOP ATTENDANT * Yessy Goel RN - 07/18/2012 9:19 AM CST Non raised rash, without itching, noticed on chest. Pt. Denies any other symptoms. Dr. Lucia ennis. Pt's. Mom desires pt. To not Have benadryl. SHOP ATTENDANT documented in this encounter H&P Notes * Cliff Johnson - 07/25/2012 5:55 AM CST SHOP ATTENDANT * Jose Angel Key MD - 07/18/2012 6:59 AM CST I have reviewed the last H&P and examined the patient today and there are no changes. SHOP ATTENDANT documented in this encounter OR Notes * OR Anesthesia - Cliff Johnson - 07/21/2012 1:44 PM CST SHOP ATTENDANT * Operative Report - Jose Angel Key MD - 07/18/2012 1:54 PM CST [place], [place] [address] Operative Report CSN: [id number] DATE OF SERVICE: 07/18/2012 SURGEON Jose Angel Key MD PREOPERATIVE DIAGNOSIS Right cervical lymphadenopathy. POSTOPERATIVE DIAGNOSIS Right cervical lymphadenopathy. OPERATION NAME Right cervical lymph node biopsy. ANESTHESIA General with laryngeal mask. PROCEDURE AND FINDINGS After an adequate level of general anesthesia was obtained, palpation of the right neck revealed a palpable posterior triangle lymph node that was mildly enlarged. The patient was prepped and draped in normal sterile fashion. A horizontal incision was made in the low neck just posterior to sternocle idomastoid muscle. This was carried down to the lymph node, which was circumferentially dissected and submitted fresh for permanent pathology. The area was made hemostatic with bipolar cautery. The spinal accessory nerve was identified deep to the dissection, but was not manipulated or injured during the dissection. The wound was closed with interrupted 3-0 Vicryl and 6-0 fast- absorbing plain gut. All counts were correct. Steri-Strips and dressing were applied and the patient was awakened and taken to recovery area in excellent condition. Estimated blood loss less than 5 mL. JHB:MEDQ DID: [id number] Dictated by: Jose Angel Key MD SHOP ATTENDANT * OR Anesthesia - Carmelo Myers MD - 07/18/2012 8:29 AM CST Phase I Postanesthesia Evaluation Including Modified Delgado Score Patient seen and evaluated: Modified Delgado Score: Score: 10 (07/18/12826) COMMENTS: No apparent Anesthesia related complications RESPIRATORY FUNCTION: Respiration: able to breath and cough freely (07/18/12826) [2=able to breathe and cough freely, 1=dyspnea, limited breathing or tachypnea, 0=apnea or mechanicventilator] O2 Saturation: able to maintain O2 saturation greater than 92% on room air (07/18/12826) [2=able to maintain O2 saturation greater than 92% on room air, 1=needs O2 inhalation to maintain O2 saturation greater than 90%, 0=O2 saturation less than 90% even with O2 supplement] Resp: 16 (07/18/12824)SpO2: 99 % (07/18/12824) CARDIOVASCULAR FUNCTION: Heart Rate (Monitored): 73 bpm (07/18/12824) BP: 102/56 mmHg (07/18/12824) Circulation: BP within 20% of preanesthetic level (07/18/12826) [2=BP within 20% of preanesthetic level, 1=BP within 20-49% of preanesthetic level, 0=BP within 50%of preanesthetic level] MENTAL STATUS, NEURO, ACTIVITY: Consciousness: fully awake (07/18/12826) [2=fully awake, 1=arousable on calling, 0=not responding] Activity: able to move 4 extremities voluntarily or on command (07/18/12826) [2=able to move 4 extremities voluntarily or on command, 1=able to move 2 extremities voluntarily or on command, 0=unable to move extremities voluntarily or on command] TEMPERATURE: Temp: 100.4 ??F (38 ??C) (07/18/12810) PAIN: Presence of Pain: denies pain/discomfort (07/18/12824) NAUSEA AND VOMITING: POSTOPERATIVE HYDRATION: Intake/Output Summary (Last 24 hours) at 07/18/12829 Last data filed at 07/18/12 0758 Gross per 24 hour Intake 600 ml Output 5 ml Net 595 ml Carmelo Myers MD 07/18/2012 8:30 AM SHOP ATTENDANT * Operative Report - Jose Angel Key MD - 07/18/2012 8:01 AM CST Brief Postoperative Note Travon Corral [id number] Pre-operative Diagnosis: lymphadenopathy right neck Post-operative Diagnosis: Same Procedure/Anesthesia: Procedure(s) and Anesthesia Type: * CERVICAL LYMPH NODE BIOPSY - General Surgeons/Assistants: Surgeon(s) and Role: * Jose Angel Key MD - Primary, Assist Srinivas Lyons PGY5, Findings: Mildly enlarged right posterior cervical node Specimens Removed: right posterior cervical node Estimated Blood Loss: Minimal Complications:none Jose Angel Key MD SHOP ATTENDANT * Harmony-OP - Odalys Reese RN - 07/18/2012 7:39 AM CST Intra-Operative Medications: Sterile 0.9% sodium chloride used for irrigation. Epinephrine 1:100,000 1 ml injected at surgical site SHOP ATTENDANT * OR Anesthesia - Carmelo Myers MD - 07/18/2012 6:57 AM CST Pre-Anesthesia Evaluation - Long Form 07/18/2012 6:57 AM Name: Travon Corral Age: 21 y.o. Sex: female CSN: [id number] Procedure: Procedure(s): SKIN CYST LESION MASS EXCISION Surgeons/Assistants: Surgeon(s) and Role: * Jose Angel Key MD - Primary Allergies Allergen Reactions ??? Ciprofloxacin Nausea and Vomiting ??? Keflex (Cephalexin) Nausea and Vomiting ??? Macrobid (Nitrofurantoin Monohyd/M-Cryst) Nausea and Vomiting Prescriptions prior to admission Medication Sig Dispense Refill ??? ALPRAZolam (XANAX) 0.25 mg Oral tablet Take 1 Tab by mouth 2 times daily as needed for Anxiety.40 Tab 2 Current Facility-Administered Medications Medication Dose Route Frequency Provider Last Rate Last Dose ??? lactated ringers solution IV Pre-Proc Continuous Jose Angel Key MD 150 mL/hr at 07/18/12 0642 ??? lidocaine 2 % (XYLOCAINE) injection 0.3 mL 0.3 mL Intradermal Pre-Proc Once Jose Angel Key MD ??? ceFAZolin (ANCEF) IVPB 1,000 mg 1,000 mg IV Pre-Proc Once Jose Angel Key MD Patient Active Problem List Diagnoses Date Noted ??? Recurrent UTI 06/15/2011 ??? Nausea alone 04/05/2011 ??? Hypoglycemia, Unspecified 04/18/2007 ??? Unspecified Backache 03/28/2007 Past Medical History Diagnosis Date ??? Kyphosis (acquired) (postural) ??? Other general symptoms age 5 or 6 rt kidney, reflux ??? UTI (urinary tract infection) CHRONIC ??? Enlarged lymph nodes OVER 1 MOS RT-X2 Past Surgical History Procedure Date ??? Hx wisdom teeth extraction AGE 19 X4 ??? Hx tonsillectomy AGE 4 OR 5 History Substance Use Topics ??? Smoking status: Current Some Day Smoker -- 0.5 packs/day for 4 years Types: Cigarettes ??? Smokeless tobacco: Never Used Comment: one pack for a week ??? Alcohol Use: 0.5 oz/week 1 Cans of beer per week SOCIALLY Family History Problem Relation Age of Onset ??? Heart Disease Mother ??? Migraines Mother ??? Cancer Brother Myeloma & Lymphoma ??? Breast Cancer Neg Hx Previous Anesthesia Problems/Concerns: No anesthesia problems/complications History of PONV No Review of Systems Cardiovascular: negative Respiratory: negative Gastroenterology: negative PHYSICAL EXAM BP 117/74 Pulse 69 Temp(Src) 98 ??F (36.7 ??C) (Temporal) Resp 20 Ht 5' 6 (1.676 m) Wt 169 lb 9.6 oz (76.93 kg) BMI 27.37 kg/m2 SpO2 100% LMP 07/11/2012 Weight: Weight: 169 lb 9.6 oz (76.93 kg) (07/18/12 0603) Height: Ht Readings from Last 1 Encounters: 07/12/12 5' 6 (1.676 m) BMI: Body mass index is 27.37 kg/(m^2). Airway: normal range of motion: Airway Class: II (soft palate, uvula, fauces visible); Thyromental Distance 3+ Finger Breadth Lungs: clear to auscultation bilaterally, normal respiratory effort Heart: regular rate and rhythm, S1, S2 normal, no murmur, click, rub or gallop Neuro: alert, oriented x 3, no defects noted in general exam. Vascular Access: Peripheral Line LABS Lab Results Component Value Date WBC 8.1 06/28/2012 HEMOGLOBIN 14.1 07/18/2012 HEMOGLOBIN 13.7 06/28/2012 HEMATOCRIT 44.2* 07/18/2012 PLATELETS 249 06/28/2012 MCV 96.1 06/28/2012 Lab Results Component Value Date SODIUM 139 06/28/2012 POTASSIUM 3.8 06/28/2012 CHLORIDE 105 06/28/2012 CO2 26 06/28/2012 CALCIUM 9.7 06/28/2012 BUN 10 06/28/2012 CREATININE 0.75 06/28/2012 GLUCOSE 82 06/28/2012 BUN/CREAT RATIO NOT APPLICABLE 06/28/2012 No results found for this basename: INR, PT, PROTIMEPOC Lab Results Component Value Date HCG QUANT, BLOOD <5 04/05/2011 No results found for this basename: glucpoc EKG: EKG not indicated today Other Studies/Considerations: None Postop pain management discussed yes Smoking/Tobacco Counseling: None Recommendations: None [facility] report reviewed. No interval changes in patient's history or review of systems.No: na ASA Physical Status: ASA 1 - Normal healthy patient I have seen and examined this patient and confirm that all data is current and accurate. Yes Choice of Anesthesia/Anesthesia Plan: Proceed and General I have discussed the anesthetic options and the risks/benefits with the patient/family. Questions have been solicited and answered. Yes Carmelo Myers MD SHOP ATTENDANT * Harmony-OP - Diana Fernandez RN - 07/12/2012 11:22 AM CST Suggested button down shirt Patient instructed to stop taking vitamins and herbal supplements 7 days prior to scheduled surgery date. Patient also instructed to stop taking aspirin and NSAIDs (unlessinstructed otherwise by surgeon) 7 days prior to their scheduled surgery date. Tylenol ok. No shaving at surgical site, shower with an antibacterial soap, no lotion, oils, gels, creams or deodorant HS & DOS SHOP ATTENDANT documented in this encounter Miscellaneous Notes * Scanned Form - Cliff Johnson - 07/21/2012 1:44 PM CST SHOP ATTENDANT * Scanned Form - Scanning, [facility] - 07/21/2012 1:44 PM CST Electronically signed by [facility] [place] [address] Subject Scientific Research Incoming at 07/21/2012 1:44 PM PRO SHOP ATTENDANT * Patient Instructions - Scanning, [facility] - 07/21/2012 1:44 PM CST Electronically signed by [facility] [place] [address] Subject Scientific Research Incoming at 07/21/2012 1:44 PM PRO SHOP ATTENDANT * Care Plan - Yessy Goel RN - 07/18/2012 9:14 AM CST Knowledge deficit related to post-discharge care Interventions: Assess learning needs and willingness to learn; give clear, concise explanations of the care required post-discharge; address patient/family questions and concerns; provide teaching asindicated Expected Outcome: Patient and/or family/significant other demonstrate(s) behaviors required for performance of activities enhancing recovery post-discharge Outcome Met: reviewed at home instructions SHOP ATTENDANT * Augustine Johnson - Leah Rosales RN - 07/18/2012 8:27 AM CST Potential for pain related to surgical/procedural intervention Interventions: Assess level of pain/comfort utilizing verbal/nonverbal pain scales; assess culturalor pentecostalism indicators attached to pain; administer pain medications as prescribed; utilize non-pharmacologic pain control and comfort measures Expected Outcome: Patient demonstrates and reports adequate pain control Outcome Met: denies pain Potential for alteration in thermoregulatory, circulatory, respiratory fluid & electrolyte status Interventions: Perform ongoing physical assessment; maintenance of airway or mechanical ventilation; monitor level of consciousness; initiate safety measures; observe patient???s respiratory status and oxygen saturation; obtain measurements of ongoing hemodynamic parameters, cardiac rhythm, and temperature; monitor intake and output; inspect wound dressings and/or drain output; perform prescribedtherapeutic regimens, treatments and tests; document and/or communicate care given Expected Outcome: Patient will maintain functional status compatible with preoperative status Outcome Met: consistent with pre op status SHOP ATTENDANT * Care Plan - Rossana Basilio RN - 07/18/2012 6:25 AM CST Knowledge deficit related to procedure/environment Interventions: Assess learning needs and willingness to learn; give clear, concise explanations of the environment and sequence of events surrounding the periop experience; address patient/family questions and concerns; provide teaching as indicated, provide teaching related to postoperative pain assessment utilizing pain scales Expected Outcome: Patient verbalizes or demonstrates awareness/understanding of surgery and perioperative experience Outcome Met: preop teaching done, no further questions Potential for anxiety related to surgical intervention Interventions: convey caring/supportive attitude; offer emotional support as needed; provide comfort measures (warm blanket, pillow, quiet environment); allow patient opportunity to verbalize concerns/fears/questions; explore coping behaviors; allow age-specific/special needs family support Expected Outcome: Patient will demonstrate decreased anxiety or adaptive coping strategies Outcome Met: family at bedside for support, reassurance offered. SHOP ATTENDANT documented in this encounter Plan of Treatment Upcoming Encounters Date Type Department Care Team (Late st Contact Info) Description 05/19/2024 9:00 AM PRO SHOP ATTENDANT Appointment [facility] [address] [place] [address] [place] [id number] Gadiel Majano MD [address] [place] [address] 06/05/2024 8:30 AM PRO SHOP ATTENDANT Appointment [facility] [address] [place] [address] [place] [address] Gadiel Majano MD [address] [place] [address] 08/09/2024 4:00 PM CDT Office Visit [facility] Care [address] [phone] Jairo Matute, LISA [address] [place] [address] 01/23/2025 3:20 PM CDT Office Visit [facility] Primary [facility] [address] [facility] [address] [place] [address] Gadiel Majano MD [address] [facility] [address] [place] [address] 08/03/2025 8:30 AM CDT Office Visit [facility] [place] [facility] [id number] [facility] [address] [place] [address] Aliza Lion MD [address] [facility] [address] [place] [address] documented as of this encounter Procedures Procedure Name Priority Date/Time Associated Diagnosis Comments PATHOLOGY Routine 07/18/2012 8:36 AM PRO SHOP ATTENDANT CERVICAL LYMPH NODE BIOPSY/EXCISION 07/18/2012 7:00 AM PRO SHOP ATTENDANT NECK MASS Case Notes ANTHONY NAVA, CPT: 42314 HEMOGLOBIN AND HEMATOCRIT Stat 07/18/2012 6:35 AM PRO SHOP ATTENDANT POC , URINE Routine 07/18/2012 6:35 AM PRO SHOP ATTENDANT documented in this encounter Results * PATHOLOGY (07/18/2012 8:36 AM PRO SHOP ATTENDANT) SURGICAL PATHOLOGY ?[facility] ?[address] [facility] ? [place], [place] ??[address] ? Patient: ??TRAVON CORRAL ? : ??1990 ? Procedure Date: ??07/18/2012 ? Accession Date: ??07/18/2012 ? Case No: ??[id number] ? Ordering Dr: ??JOSE ANGEL KEY ? Case type SW is performed by [facility], [address] [facility], ? [place], [place] ??[address]; all other case types are performed by [facility] ? [facility], [address] [facility] [place] ??[address] ?SURGICAL PATHOLOGY & NON-GYNECOLOGIC CYTOPATHOLOGY REPORT ? DIAGNOSIS ? LYMPH NODE, RIGHT POSTERIOR CERVICAL, EXCISIONAL BIOPSY: ? - REACTIVE LYMPHOID HYPERPLASIA, MILD. ? Specimen Description: ? Right posterior cervical lymph node. ? Operative Procedure: ? Right cervical lymph node biopsy. ? Patient Information/Histo ry/Diagnosis: ? Right neck mass. ? Gross: ? The specimen is received in a single container labeled Travon Knight. ? Shayna, right posterior cervical lymph node and consists of a 1.3 x 0.9 x ? 0.4-cm, pink possible lymph node. Sections reveal uniform, smooth, pink ? tissue. A truck sales representative sample is placed in RPMI for possible flow ? cytometry. The remainder of the specimen is submitted as follows: A1-tissue ? for formalin fixation; A2-remainder of tissue for B-Plus fixation. ? [facility] 07.18.2012 09:01 am ? Microscopic: ? Received are slides labeled [id number], Travon AntoniaSonia Corral. ? A mildly enlarged right cervical lymph node is present. Small lymphoid ? follicles are present within the cortex. Paracortical expansion is present. ? The paracortex contains small lymphocytes, scattered epithelioid ? histiocytes, and occasional large transformed lymphocytes. There is mild ? sinus histiocytosis. The features are benign throughout. ? [facility]/P[facility] 07.19.2012 08:58 am ? Staging Form: ? No ? ELECTRONIC SIGNATURE FOR ELIO SCOTT M.D.- 07/19/12 09:55 am [facility] Specimen of unknown material (specimen) 07/18/2012 8:36 AM PRO SHOP ATTENDANT Jose Angel Key MD PATHOLOGY/CYTOLOGY O RDERABLES [facility] CLIA# [id number] [address] [place] [address] * POC , URINE (07/18/2012 6:35 AM PRO SHOP ATTENDANT) Pathologist [facility] , URINE POC Negative Negative [facility] CLIA LICENSE [id number] [facility] 07/18/2012 6:35 AM PRO SHOP ATTENDANT 07/18/2012 6:35 AM PRO SHOP ATTENDANT Comment:URINE Jose Angel Key MD POINT OF CARE TESTIN G Performing Organization Address [facility] Co de Phone Number [facility] CLIA# [id number] [address] [place] [address] * (ABNORMAL) HEMOGLOBIN AND HEMATOCRIT (07/18/2012 6:35 AM PRO SHOP ATTENDANT) Pathologist [facility] HEMOGLOBIN 14.1 11.8 - 14.8 g/dL [facility] HEMATOCRIT 44.2(H) 35.5 - 44.0 % [facility] Blood specimen (specimen) 07/18/2012 6:35 AM PRO SHOP ATTENDANT 07/18/2012 6:47 AM PRO SHOP ATTENDANT Eladio Klein MD HEMATOLOGY ORDERABLE S Performing Organization Address [facility]/ZIP Co de Phone Number [facility] CLIA# [id number] [address] [place] [address] documented in this encounter Visit Diagnoses Not on filedocumented in this encounter Administered Medications Inactive Administered Medications - up to 3 most recent administrations Medication Order MAR Action Action Date Dose Rate Site ceFAZolin (ANCEF) IVPB 1,000 mg 1,000 mg, IV, PRE-PROCEDURE ONCE, 1 dose, Starting on Wed07/18/12 at 0603, Until Wed07/18/12 at 0804, Routine, Pre-op New Bag 07/18/2012 7:34 AM PRO SHOP ATTENDANT 1,000 mg mL/hr diphenhydrAMINE (BENADRYL) injection 12.5 mg 12.5 mg, IV, POST-PROCEDURE ONCE PRN, 1 dose, Starting on Wed07/18/12 at 0658, Until Wed07/18/12 at 0932, Nausea, Routine, PACU Given 07/18/2012 9:32 AM PRO SHOP ATTENDANT 12.5 mg fentaNYL PF (SUBLIMAZE) 50 mcg/mL injection 25 mcg 25 mcg, IV, POST-PROCEDURE Q 3 MINUTES PRN, Starting on Wed07/18/12 at 0658, Until Wed07/18/12 at 1208, Pain, Routine, PACU Given 07/18/2012 8:35 AM PRO SHOP ATTENDANT 25 mcg Given 07/18/2012 8:32 AM PRO SHOP ATTENDANT 25 mcg lactated ringers solution IV, at 150 mL/hr, PRE-PROCEDURE CONTINUOUS, Starting on Wed07/18/12 at 0615, Until Wed07/18/12 at 0810, Routine, Pre-op New Bag 07/18/2012 6:42 AM PRO SHOP ATTENDANT 150 mL/hr lidocaine 2 % (XYLOCAINE) injection 0.3 mL 0.3 mL, Intradermal, PRE-PROCEDURE ONCE, Starting on Wed07/18/12 at 0603, Until Wed07/18/12 at 0810, Routine, Pre-op Given 07/18/2012 6:41 AM PRO SHOP ATTENDANT 0.3 mL Hand, Left documented in this encounter Active and Recently Administered Medications Times are shown in PRO SHOP ATTENDANT. Scheduled Medication Order 07/16/2012 07/17/2012 07/18/2012 ceFAZolin (ANCEF) IVPB 1,000 mg (COMPLETED) 1,000 mg, IV, PRE-PROCEDURE ONCE, 1 dose, Starting on Wed07/18/12 at 0603, Until Wed07/18/12 at 0804, Routine, Pre-op 0734 (New Bag - Prov ider: Katerin Martinez CRNA) lidocaine 2 % (XYLOCAINE) injection 0.3 mL (CANCELED) 0.3 mL, Intradermal, PRE-PROCEDURE ONCE, Starting on Wed07/18/12 at 0603, Until Wed07/18/12 at 0810, Routine, Pre-op 0641 (Given - Provid er: Katerin Martinez CRNA) Continuous Medication Order 07/16/2012 07/17/2012 07/18/2012 lactated ringers solution (CANCELED) IV, at 150 mL/hr, PRE-PROCEDURE CONTINUOUS, Starting on Wed07/18/12 at 0615, Until Wed07/18/12 at 0810, Routine, Pre-op 0642 (New Bag - Prov ider: Rossana Basilio RN) PRN Medication Order 07/16/2012 07/17/2012 07/18/2012 diphenhydrAMINE (BENADRYL) injection 12.5 mg (COMPLETED) 12.5 mg, IV, POST-PROCEDURE ONCE PRN, 1 dose, Starting on Wed07/18/12 at 0658, Until Wed07/18/12 at 0932, Nausea, Routine, PACU 0932 (Given - Provid er: Yessy Goel RN) fentaNYL PF (SUBLIMAZE) 50 mcg/mL injection 25 mcg (CANCELED) 25 mcg, IV, POST-PROCEDURE Q 3 MINUTES PRN, Starting on Wed07/18/12 at 0658, Until Wed07/18/12 at 1208, Pain, Routine, PACU 0832 (Given - Provid er: Leah Rosales RN)0835 (Given - Provider: Leah Rosales RN) HYDROcodone-acetaminophen (NORCO) 5-325 mg per tablet 1 Tab 1 Tablet, Oral, EVERY 4 HOURS PRN, Starting on Wed07/18/12 at 0804, Until Wed07/18/12 at 1208, Pain, Moderate, For Pain Scale 4-6, Routine, Post-op Phase II documented in this encounter Care Teams Test Facility Engineer Relationship Specialty Start Date End Date Gadiel Majano MD [address] [place] [address] PCP - General 02/25/07 documented as of this encounter
--- OUTSIDE RECORDS SUMMARY | 2024-05-11 14:59 | XMS_ITS | Encounter Summary ---
Author Organization [facility] Address [address] [place] [address] Care Team Providers Care Chef French Name Role Phone Gadiel Majano MD Primary Care Provider [phone] Reason for Visit * Auth/Cert - Closed Specialty Diagnoses / Procedures Referred By Contac t Referred To Contact General Surgery Diagnoses NECK MASS Procedures SKIN CYST LESION MASS EXCISION [facility] Or [address] [place] [address] Referral ID Status Reason Start Date Expiration Date Visits Re quested Visits Authorized [id number] Closed 1 1 Encounter Details Date Type Department Care Team (Latest Contact Info) Description 07/18/2012 5:31 AM CORN CHIP MAKER - 07/18/2012 10:[address] [facility] Hospital Encounter [facility] C[facility] Mun[facility] [address] [place] [address] Jose Angel Key MD [address] [facility] [address] [place] [address] Discharge Disposition: Home or Self Care Social [...] Sign Reading Time Taken Comments Blood Pressure 102/64 07/18/2012 10:02 AM CORN CHIP MAKER Pulse 68 07/18/2012 10:02 AM CORN CHIP MAKER Temperature 37 ??C (98.6 ??F) 07/18/2012 10:02 AM CORN CHIP MAKER Respiratory Rate 16 07/18/2012 10:02 AM CORN CHIP MAKER Oxygen Saturation 97% 07/18/2012 10:02 AM CORN CHIP MAKER Inhaled Oxygen Concentration - - Weight 76.9 kg (169 lb 9.6 oz) 07/18/2012 6:03 A M CORN CHIP MAKER Height 167.6 cm (5' 6 ) 07/12/2012 11:10 AM CORN CHIP MAKER Body Mass Index 27.37 07/12/2012 11:10 AM CORN CHIP MAKER documented in this encounter Discharge Instructions * Discharge Instructions* Yessy Goel RN - 07/18/2012 9:19 AM CORN CHIP MAKER SAFETY For the next 24 hours, you [...] or come to the Emergency Room at [place] ([phone]) or the nearest Emergency Room. In an emergency, Call 911. Keep wound dry for 48 hours No lifting bending straining for one week Call for appointment in one week Resume home meds unless otherwise directed CHIP MAKER documented in this encounter Medications at Time of Discharge Medication Sig Dispensed Refills Start Date End Date ALPRAZolam (XANAX) 0.25 mg Oral tablet Take 1 Tab by mouth 2 times daily as needed for Anxiety. 40 Tab 2 09/09/2011 07/30/2015 documented as of this encounter Progress Notes * Yessy Goel RN - 07/18/2012 10:06 AM CST Chest rash resolved. CHIP MAKER * Yessy Goel RN - 07/18/2012 9:39 AM CST Pt. Now scratching chest. 12.5 mg benadryl given. Pt. Stated wants to go home if rash subsides. CHIP MAKER * Yessy Goel RN - 07/18/2012 9:19 AM CST Non raised rash, without itching, noticed on chest. Pt. Denies any other symptoms. Dr. Lucia ennis. Pt's. Mom desires pt. To not Have benadryl. CHIP MAKER documented in this encounter H&P Notes * Scanning, Stl - 07/25/2012 5:55 AM CST CHIP MAKER * Jose Angel Key MD - 07/18/2012 6:59 AM CST I have reviewed the last H&P and examined the patient today and there are no changes. CHIP MAKER documented in this encounter OR Notes * OR Anesthesia - Scanning, Stl - 07/21/2012 1:44 PM CST CHIP MAKER * Operative Report - Jose Angel Key MD - 07/18/2012 1:54 PM CST [place], [place] [address] Operative Report CSN: [id number] DATE OF SERVICE: 07/18/2012 SURGEON Jose Angel [...] Estimated blood loss less than 5 mL. JHB:FELICITY DID: [id number] Dictated by: Jose Angel Key MD CHIP MAKER * OR Anesthesia - Carmelo Myers MD [...] ml Carmelo Myers MD 07/18/2012 8:30 AM CHIP MAKER * Operative Report - Jose Angel Key MD - 07/18/2012 8:01 AM CST Brief Postoperative Note Travon Corral [id number] Pre-operative Diagnosis: lymphadenopathy right neck Post-operative Diagnosis: Same Procedure/Anesthesia: Procedure(s) and Anesthesia Type: * CERVICAL LYMPH NODE BIOPSY - General Surgeons/Assistants: Surgeon(s) and Role: * Jose Angel Key MD - Primary, Assist Srinivas Lyons, PGY5, MD Findings: Mildly enlarged right posterior cervical node Specimens Removed: right posterior cervical node Estimated Blood Loss: Minimal Complications:none Jose Angel Key MD CHIP MAKER * Harmony-OP - Odalys Reese RN - 07/18/2012 7:39 AM CST Intra-Operative Medications: Sterile 0.9% sodium chloride used for irrigation. Epinephrine 1:100,000 1 ml injected at surgical site CHIP MAKER * OR Anesthesia - Carmelo Myers MD - 07/18/2012 6:57 AM CST Pre-Anesthesia Evaluation - Long Form 07/18/2012 6:57 AM Name: Travon Corral Age: 21 y.o. Sex: female CSN: [id number] Procedure: Procedure(s): SKIN CYST LESION MASS EXCISION [...] solicited and answered. Yes Carmelo Myers MD CHIP MAKER * Harmony-OP - Diana Fernandez RN - [...] gels, creams or deodorant HS & DOS CHIP MAKER documented in this encounter Miscellaneous Notes * Scanned Form - Scanning, [facility] - 07/21/2012 1:44 PM CST Electronically signed by Petar [facility] St[facility] Special Education Case Manager Incoming at 07/21/2012 1:44 PM CORN CHIP MAKER * Scanned Form - Scanning, [facility] 07/21/2012 1:44 PM CST Electronically signed by Petar [facility] Special Education Case Manager Incoming at 07/21/2012 1:44 PM CORN CHIP MAKER * Patient Instructions - Scanning, [facility] - 07/21/2012 1:44 PM CST CHIP MAKER * Care Plan - Yessy Goel RN [...] post-discharge Outcome Met: reviewed at home instructions * Care Plan - Leah Rosales RN - 07/18/2012 8:27 AM CST Potential for pain related to surgical/procedural intervention Interventions: Assess level of pain/comfort utilizing verbal/nonverbal pain scales; assess culturalor sabianism indicators attached to pain; administer pain medications [...] Outcome Met: consistent with pre op status * Care Plan - Rossana Basilio RN [...] family at bedside for support, reassurance offered. CHIP MAKER documented in this encounter Plan of Treatment Upcoming Encounters Date Type Department Care Team (Late st Contact Info) Description 05/19/2024 9:00 AM CORN CHIP MAKER Appointment [facility] [address] [place] [address] [place] [phone] Gadiel Majano MD [address] [place], [place] [phone] 06/05/2024 8:30 AM CORN CHIP MAKER Appointment [facility] [address] [place] [address] [place] [phone] Gadiel Majano MD [address] [place] [address] 08/09/2024 4:00 [place] [address] Jairo Matute PA [address] [place] [phone] 01/23/2025 3:20 [place] [address] Gadiel Majano MD [address] [place], [place] [phone] 08/03/2025 8:30 AM CDT Office Visit [facility] NE[facility] - [place] [address] [facility] [facility] [address] [place] [address] Aliza Lion MD [address] [place] [address] documented as of this encounter Procedures Procedure Name Priority Date/Time Associated Diagnosis Comments PATHOLOGY Routine 07/18/2012 8:36 AM CORN CHIP MAKER CERVICAL LYMPH NODE BIOPSY/EXCISION 07/18/2012 7:00 AM CORN CHIP MAKER NECK MASS Case Notes ANTHONY NAVA, CPT: 96118 HEMOGLOBIN AND HEMATOCRIT Stat 07/18/2012 6:35 AM CORN CHIP MAKER POC , URINE Routine 07/18/2012 6:35 AM CORN CHIP MAKER documented in this encounter Results * PATHOLOGY (07/18/2012 8:36 AM CORN CHIP MAKER) SURGICAL PATHOLOGY ?[facility] ?[address] ? [place], [place] ??[address] ? Patient: ??TRAVON CORRAL ? : ??1990 ? Procedure Date: ??07/18/2012 ? Accession Date: ??07/18/2012 ? Case No: ??[id number] ? Ordering Dr: ??JOSE ANGEL KEY ? Case type SW is performed by [address], ? [place], [place] ??[address]; all other case types are performed by [facility] ? [facility], [address] [place], [place] ??[address] ?SURGICAL PATHOLOGY & NON-GYNECOLOGIC CYTOPATHOLOGY REPORT ? DIAGNOSIS ? LYMPH NODE, RIGHT POSTERIOR CERVICAL, EXCISIONAL BIOPSY: ? - REACTIVE LYMPHOID HYPERPLASIA, MILD. ? Specimen Description: ? Right posterior cervical lymph node. ? Operative Procedure: ? Right cervical lymph node biopsy. ? Patient Information/Histo ry/Diagnosis: ? Right neck mass. ? Gross: ? The specimen is received in a single container labeled Travon Knight. ? Rubinabenny, right posterior cervical lymph node and consists of a 1.3 x 0.9 x ? 0.4-cm, pink possible lymph node. Sections reveal uniform, smooth, pink ? tissue. A hardware supplies sales representative sample is placed in RPMI for possible flow ? cytometry. The remainder of the specimen is submitted as follows: A1-tissue ? for formalin fixation; A2-remainder of tissue for B-Plus fixation. ? [facility] 07.18.2012 09:01 am ? Microscopic: ? Received are slides labeled [id number], Travon Corral. ? A mildly enlarged right cervical [...] FOR ELIO SCOTT M.D.- 07/19/12 09:[address] [facility] LABORATORY SERVICES [facility] Specimen of unknown material (specimen) 07/18/2012 8:36 AM CORN CHIP MAKER Jose Angel Key MD PATHOLOGY/CYTOLOGY O RDERABLES Performing Organization Address [facility]/ZIP Co de Phone Number [facility]# [id number] [address] [place] [address] * POC , URINE (07/18/2012 6:35 AM CORN CHIP MAKER) , URINE POC Negative Negative [id number] [facility] 07/18/2012 6:35 AM CORN CHIP MAKER 07/18/2012 6:35 AM CORN CHIP MAKER Comment:URINE Jose Angel Key MD POINT OF CARE TESTIN G Performing Organization Address [facility] Co de Phone Number [facility]# [id number] [address] [place] [address] * (ABNORMAL) HEMOGLOBIN AND HEMATOCRIT (07/18/2012 6:35 AM CORN CHIP MAKER) [facility] HEMOGLOBIN 14.1 11.8 - 14.8 g/dL [facility] HEMATOCRIT 44.2(H) 35.5 - 44.0 % [facility] Blood specimen (specimen) 07/18/2012 6:35 AM CORN CHIP MAKER 07/18/2012 6:47 AM CORN CHIP MAKER Eladio Klein MD HEMATOLOGY ORDERABLE S Performing Organization Address [facility] Co de Phone Number [facility]# [id number] [address] [place] [place] [address] documented in this encounter Visit Diagnoses Not on filedocumented in this encounter Administered Medications Inactive Administered Medications - up to 3 most recent administrations Medication Order MAR Action Action Date Dose Rate Site ceFAZolin (ANCEF) IVPB 1,000 mg 1,000 mg, IV, PRE-PROCEDURE ONCE, 1 dose, Starting on 07/18/12 at 0603, Until Wed07/18/12 at 0804, Routine, Pre-op New Bag 07/18/2012 7:34 AM CORN CHIP MAKER 1,000 mg mL/hr diphenhydrAMINE (BENADRYL) injection 12.5 mg 12.5 mg, IV, POST-PROCEDURE ONCE PRN, 1 dose, Starting on Wed07/18/12 at 0658, Until Wed07/18/12 at 0932, Nausea, Routine, PACU Given 07/18/2012 9:32 AM CORN CHIP MAKER 12.5 mg fentaNYL PF (SUBLIMAZE) 50 mcg/mL injection 25 mcg 25 mcg, IV, POST-PROCEDURE Q 3 MINUTES PRN, Starting on Wed07/18/12 at 0658, Until Wed07/18/12 at 1208, Pain, Routine, PACU Given 07/18/2012 8:35 AM CORN CHIP MAKER 25 mcg Given 07/18/2012 8:32 AM CORN CHIP MAKER 25 mcg lactated ringers solution IV, at 150 mL/hr, PRE-PROCEDURE CONTINUOUS, Starting on Wed07/18/12 at 0615, Until Wed07/18/12 at 0810, Routine, Pre-op New Bag 07/18/2012 6:42 AM CORN CHIP MAKER 150 mL/hr lidocaine 2 % (XYLOCAINE) injection 0.3 mL 0.3 mL, Intradermal, PRE-PROCEDURE ONCE, Starting on Wed07/18/12 at 0603, Until Wed07/18/12 at 0810, Routine, Pre-op Given 07/18/2012 6:41 AM CORN CHIP MAKER 0.3 mL Hand, Left documented in this encounter Active and Recently Administered Medications Times are shown in CORN CHIP MAKER. Scheduled Medication Order 07/16/2012 07/17/2012 07/18/2012 ceFAZolin [...] 0642 (New Bag - Prov ider: Rossana Basilio, MAGDY) PRN Medication Order 07/16/2012 07/17/2012 07/18/2012 diphenhydrAMINE [...] PACU 0832 (Given - Provid er: Leah Rosales, MAGDY)0835 (Given - Provider: Leah Rosales RN) HYDROcodone-acetaminophen (NORCO) 5-325 mg per tablet 1 Tab 1 Tablet, Oral, EVERY 4 HOURS PRN, Starting on Wed07/18/12 at 0804, Until Wed07/18/12 at 1208, Pain, Moderate, For Pain Scale 4-6, Routine, Post-op Phase II documented in this encounter Care Teams Chef French Relationship Specialty Start Date End Date Gadiel Majano MD [address] [place] [phone] PCP - General 02/25/07 documented as of this encounter
--- OUTSIDE RECORDS SUMMARY | 2024-05-11 14:59 | XMS_ITS | Encounter Summary ---
Author Organization [facility] Address [address] [place] [address] Care Team Providers Care Pulpwood Cutter Name Role Phone Gadiel Majano MD Primary Care Provider [phone] Encounter Details Date Type Department Care Team (Late Contact Info) Description 07/23/2012 Abstract [facility] Internal Medicine [address] [address] Gadiel Majano MD [address] [place] [phone] Social History Tobacco Use Types Packs/Day [...] st Contact Info) Description 05/19/2024 9:00 AM EMAIL MARKETING ASSISTANT Appointment [facility] Support Services EEG [address] [place] [address] [place] [address] Gadiel Majano MD [address] [place] [phone] 06/05/2024 8:30 AM EMAIL MARKETING ASSISTANT Appointment [facility] MRI [address] [place] [address] [facility] [place] [address] Gadiel Majano MD [address] [place] [address] [address] [place] [address] 08/09/2024 4:00 PM CDT Office Visit [facility] [address] [place] [address] [address] [place] [address] Jairo Matute, LISA [address] [place] [address] [address] [place] [address] 01/23/2025 3:20 PM CDT Office Visit [address] [place] [address] Gadiel Majano MD [address] [place] [address] [address] [place] [address] 08/03/2025 8:30 AM CDT Office Visit [facility] [address] [facility] [address] [place] [address] Aliza Lion MD [address] [facility] [address] [place] [address] documented as of this encounter Visit Diagnoses Not on filedocumented in this encounter Care Teams Pulpwood Cutter Relationship Specialty Start Date End Date Gadiel Majano MD [address] [place] [address] [address] [place] [address] PCP - General 02/25/07 documented as of this encounter
--- OUTSIDE RECORDS SUMMARY | 2024-05-11 14:59 | XMS_ITS | Encounter Summary ---
Author Organization [facility] Address [address] [place] [address] Care Team Providers Care Sander Portable Machine Name Role Phone Gadiel Majano MD Primary Care Provider [phone] Encounter Details Date Type Department Care Team (Late Contact Info) Description 05/08/2011 Orders Only [facility] Internal Medicine [address] [address] Provider, Abstract NO ADDRESS ON [...] Upcoming Encounters Date Type Department Care Team ([facility] Contact Info) Description 05/19/2024 9:00 AM LABORATORY TESTER Appointment [facility] Support Services EEG [address] [place] [address] [place] [address] Gadiel Majano MD [address] [place] [phone] 06/05/2024 8:30 AM LABORATORY TESTER [facility] [address] [place] [address] [place] [address] Gadiel Majano MD [address] [place] [phone] 08/09/2024 4:00 PM CDT Office Visit [facility] [address] [facility] [address] [place] [address] Jairo Matute PA [address] [place] [address] [address] [place] [address] 01/23/2025 3:20 PM CDT Office Visit [facility] [address] [place] [address] [address] [place] [address] Gadiel Majano MD [address] [place] [address] [address] [place] [address] 08/03/2025 8:30 AM CDT Office Visit [facility] - [facility] [address] [facility] [address] [place] [address] Aliza Lion MD [address] [facility] [address] [place] [address] documented as of this encounter Procedures Procedure Name Priority Date/Time Associated Diagnosis Comments URINE CULTURE Routine 05/05/2011 documented in this encounter Results * URINE CULTURE (05/05/2011) Urine specimen (specimen) URINE SPECIMEN OBTAINED BY CLEAN CATCH PROCEDURE / Unknown Abstract Provider MICROBIOLOGY - GENER AL ORDERABLES [facility] LABORATORY SERVICES [facility]# [id number] [address] [facility] [place] [address] documented in this encounter Visit Diagnoses Not on filedocumented in this encounter Care Teams Sander Portable Machine Relationship Specialty Start Date End Date Gadiel Majano MD [address] [place] [address] [address] [place] [address] PCP - General 02/25/07 documented as of this encounter
--- OUTSIDE RECORDS SUMMARY | 2024-05-11 14:59 | XMS_ITS | Encounter Summary ---
Author Organization [facility] Address [address] [place] [address] Care Team Providers Care Meter Tester Polyphase Name Role Phone Gadiel Majano MD Primary Care Provider [phone] Reason for Visit * Reason Comments Well Woman Exam Has not had Gardasil Immunization/Injection Gardasil #1 Encounter Details Date Type Department Care Team (Latest Contact Info) Description 09/02/2011 9:30 AM CDT Office Visit [facility] ASSOCIATE PROFESSOR OF EDUCATION - Medical [address] [address] Yesenia Friedman DO [address] [place] [address] [place] [address] Routine gynecological examination; Screening examination for venereal disease; Need vaccination-viral disease Social History Tobacco Use Types Packs/Day [...] Reading Time Taken Comments Blood Pressure 110/70 09/02/2011 9:30 AM CDT Pulse - - Temperature - - Respiratory Rate - - Oxygen Saturation - - Inhaled Oxygen Concentration - - Weight 75.8 kg (167 lb) 09/02/2011 9:30 AM CDT Height 167.6 cm (5' 6 ) 09/02/2011 9:30 AM CDT Body Mass Index 26.95 09/02/2011 9:30 AM CDT documented in this encounter Progress Notes * Sweta Sosa - 09/02/2011 10:39 AM CDTAddended by: SWETA SOSA on: 09/02/2011 10:39 AM Modules accepted: Orders * Sweta Sosa - 09/02/2011 10:37 AM CDT Pt received Gardasil #1 in left deltoid & tolerated procedure well. Office supplied. * Yesenia Friedman DO - 09/02/2011 10:18 AM CDT CC: Well-Woman Exam HPI: Trinh Corral is a 21 y.o. who presents today as a new patient for a Well Woman Exam. She denies any gynecologic complaints today. She has frequent utis and is currently seeing a urologist at [facility] Interested in starting control. Does not want ocps because she is often on antibiotics for uti. hull grinder History: Irregular menses Denies abnormal Pap smears or STIs. Medical History: UTI Surgical History: Tonsillectomy Family History: Denies family history of gynecologic malignancies, breast cancer, or colon cancer Social History: Denies tobacco, alcohol, or illicit drugs. Medications: No current outpatient prescriptions on file prior to visit. Allergies: Allergies Allergen Reactions ??? Ciprofloxacin Nausea and Vomiting ??? Keflex (Cephalexin) Nausea and Vomiting ??? Macrobid (Nitrofurantoin Monohyd/M-Cryst) Nausea and Vomiting Review of Systems: As above. Denies nausea, vomiting, chest pain, shortness of breath, headache, bowel or bladder complaints, abdominal pain, or unintentional changes in weight. Physical Exam: Filed Vitals: 09/02/11 0930 BP: 110/70 Height: 5' 6 (1.676 m) Weight: 167 lb (75.751 kg) General: Well-developed, well-nourished female in NAD HEENT: Normocephalic, atraumatic. Breast: Equal in size and shape bilaterally. No lesions, palpable masses, or abnormal discharge noted Abdomen: Soft, nontender, nondistended, no rebound/guarding Extremities: No clubbing, cyanosis, or edema. No calf tenderness. Pelvic: Normal appearing external genitalia. Cervix well visualized and no lesions noted. No adnexal masses or fullness noted bilaterally. No cervical motional tenderness. Assessment/Plan: Trinh Corral is a 21 y.o. here today for Well-Woman Exam 1. Patient with no specific complaints 2. Exam today unremarkable, Pap smear was obtained 3. Health Maintenance - Will start hpv vaccine series today 4. Contraception-discussed options of nuvaring, patch, and implanon. Would like to try nuvaring. Samples given. Will call if wants rx. 5. Patient instructed to return to the office in one year for well woman exam unless need arises prior to that time. Yesenia Friedman DO documented in this encounter Plan of Treatment Upcoming Encounters Date Type Department Care Team (Late st Contact Info) Description 05/19/2024 9:00 AM MARKET RESEARCH INTERN Appointment [facility] EEG [address] [place] [phone] Gadiel Majano MD [address] [place] [address] 06/05/2024 8:30 AM MARKET RESEARCH INTERN Appointment [facility] [address] [place] [address] Gadiel Majano MD [address] [place] [address] 08/09/2024 4:00 PM CDT Office Visit [facility] Primary Care [address] [address] Jairo Matute PA [address] [place] [address] 01/23/2025 3:20 PM CDT Office Visit [facility] Primary Care [facility] [address] [facility] [place] [address] [place] [address] Gadiel Majano MD [address] [place] [address] [place] [address] 08/03/2025 8:30 AM CDT Office Visit [facility] NEUROLOGY - [place] - [place] [address] [facility] [place] [address] [place] [address] Aliza Lion MD [address] [facility] [place] [address] [place] [address] documented as of this encounter Procedures Procedure Name Priority Date/Time Associated Diagnosis Comments CHLAMYDIA AND GC, PAP VIAL Routine 09/02/2011 9:35 AM CDT Screening examination for venereal disease CERV/VAG CYTOPATH, SUREPATH W/RFLX HPV Routine 09/02/2011 9:35 AM CDT Routine gynecological examination documented in this encounter Results * CHLAMYDIA AND GC, PAP VIAL (09/02/2011 9:35 AM CDT) CHLAMYDIA TRACHOMATIS DNA NOT DETECTED NOT DETECTED [facility] N GONORAE DNA, SDA NOT DETECTED NOT DETECTED [facility] SEE NOTE [facility] Comment: This test was performed using the BD ProbeTec(TM) Chlamydia trachomatis and Neisseria gonorrhoeae Amplified DNA Assays. Test Performed at: [facility] [address] [place], [place] ??[address] BROOK ORTIZ DO Endocervical (Endocervical) 09/02/2011 9:35 AM CDT Yesenia Friedman DO BODY FLUIDS AND STOO LS COM INTERFACE SYSTEM Refer to clinic/hospital department [facility] [address] [place] [address] * CERV/VAG CYTOPATH, SUREPATH W/RFLX HPV (09/02/2011 9:35 AM CDT) CLINICAL INFORMATION [facility] Comment:HEALTHY LAST MENSTRUAL PERIOD [facility] Comment:08 21 2011 PREV PAP: [facility] Comment:INFORMATION NOT PROV IDED PREV BX: [facility] IM5 [facility] Comment:INFORMATION NOT PROV IDED SOURCE [facility] Comment:Endocervix ADEQUACY: [facility] Comment: Satisfactory for evaluation. Endocervical/transformation zone component present. INTERPRETATION [facility] Comment:Negative for intraep ithelial lesion or malignancy. COMMENT [facility] Comment: Based on the cytology result, reflex High Risk HPV DNA testing was not performed. MONITOR TECH: [facility] Comment: DDS, CT(ASCP) Test Performed at: [facility] [address] [place], [place] ??[address] BROOK ORTIZ DO Endocervical 09/02/2011 9:35 AM CDT Yesenia Friedman DO PATHOLOGY/CYTOLOGY O MARGRET INTERFACE SYSTEM Refer to clinic/hospital department [facility] [address] [place] [address] documented in this encounter Visit Diagnoses Diagnosis Routine gynecological examination Screening examination for venereal disease Need for prophylactic vaccination and inoculation against other viral diseases(V04.89) Need for prophylactic vaccination and inoculation against other viral diseases documented in this encounter Care Teams Meter Tester Polyphase Relationship Specialty Start Date End Date Gadiel Majano MD [address] [place] [address] PCP - General 02/25/07 documented as of this encounter
--- OUTSIDE RECORDS SUMMARY | 2024-05-11 14:59 | XMS_ITS | Encounter Summary ---
Author Organization [facility] Address [address] [place] [address] Care Team Providers Care Contact And Service Clerks Supervisor Name Role Phone Gadiel Majano MD Primary Care Provider [phone] Reason for Visit * Reason Comments Anxiety Encounter Details Date Type Department Care Team (Late st Contact Info) Description 09/09/2011 9:00 AM CDT Office Visit [facility] Internal Medicine [address] [address] Gadiel Majano MD [address] [place] [address] Adjustment reaction (Primary Dx); Insomnia Social History Tobacco Use Types Packs/Day Years [...] Reading Time Taken Comments Blood Pressure 110/80 09/09/2011 8:51 AM CDT Pulse - - Temperature - - Respiratory Rate - - Oxygen Saturation - - Inhaled Oxygen Concentration - - Weight 76.7 kg (169 lb) 09/09/2011 8:51 AM CDT Height 167.6 cm (5' 6 ) 09/09/2011 8:51 AM CDT Body Mass Index 27.28 09/09/2011 8:51 AM CDT documented in this encounter Progress Notes * Gadiel Majano MD - 09/09/2011 6:51 PM CDT anx issues reviewed Not sleeping Panic attacks in class Brother with cancer Issues with courses at school Overwhelmed The patient appears alert, well appearing, and in no distress.- ENT exam normal,, Chest:clear to auscultation, no wheezes, rales or rhonchi, symmetric air entry. Heart sounds are normal. Abdomen soft, nontender, no masses or organomegaly. Mood anxious, tearful ASSESSMENT: Encounter Diagnoses Name Primary? Adjustment reaction Yes ??? Insomnia I've explained to her that drugs of the SSRI class can have side effects such as weight gain, sexual dysfunction, insomnia, headache, nausea. These medications are generally effective at alleviating symptoms of anxiety and/or depression. Let me know if significant side effects do occur. Pt advised no driving or etoh with xanax, not to take before any tests PLAN: Orders Placed This Encounter ??? escitalopram (LEXAPRO) 10 mg Oral tablet ??? ALPRAZolam (XANAX) 0.25 mg Oral tablet documented in this encounter Plan of Treatment Upcoming Encounters Date Type Department Care Team (Late st Contact Info) Description 05/19/2024 9:00 AM STEAM ROLLER OPERATOR Appointment [facility] [address] [place] [address] [place] [address] Gadiel Majano MD [address] [place] [address] 06/05/2024 8:30 AM STEAM ROLLER OPERATOR Appointment [facility] MRI [address] [place] [address] [place] [phone] Gadiel Majano MD [address] [place] [phone] 08/09/2024 4:00 PM CDT Office Visit [facility] Primary [place] [address] [place] [phone] Jairo Matute PA [address] [place] [address] [address] [place] [address] 01/23/2025 3:20 PM CDT Office Visit [facility] Primary Care [facility] [address] [place], [place] [address] [address] Gadiel Majano MD [address] [place] [address] [place] [address] 08/03/2025 8:30 AM CDT Office Visit [facility] NE[facility]OLOG[facility] - [facility] [address] [place] [address] Aliza Lion MD [address] [facility] [address] [place] [address] documented as of this encounter Visit Diagnoses Diagnosis Adjustment reaction- Primary Unspecified adjustment reaction Insomnia Insomnia, unspecified documented in this encounter Care Teams Contact And Service Clerks Supervisor Relationship Specialty Start Date End Date Gadiel Majano MD [address] [place] [address] [place] [phone] PCP - General 02/25/07 documented as of this encounter
--- OUTSIDE RECORDS SUMMARY | 2024-05-11 14:59 | XMS_ITS | Encounter Summary ---
Author Organization [facility] Address [address] [place] [address] Care Team Providers Care Flat Knitter Name Role Phone Gadiel Majano MD Primary Care Provider [phone] Reason for Visit * Reason Comments Physical Encounter Details Date Type Department Care Team (Late st Contact Info) Description 11/03/2012 3:30 PM CDT Office Visit [facility] Internal Medicine [address] [address] Gadiel Majano MD [address] [place] [phone] Unspecified Backache (Primary Dx); Anxiety state; Tobacco use disorder; Need for Tdap vaccination Social History Tobacco [...] Reading Time Taken Comments Blood Pressure 110/70 11/03/2012 3:36 PM CDT Pulse - - Temperature - - Respiratory Rate - - Oxygen Saturation - - Inhaled Oxygen Concentration - - Weight 73.9 kg (163 lb) 11/03/2012 3:36 PM CDT Height 165.1 cm (5' 5 ) 11/03/2012 3:36 PM CDT Body Mass Index 27.12 11/03/2012 3:36 PM CDT documented in this encounter Progress Notes * Gadiel Majano MD - 11/03/2012 4:34 PM CDT Under stress with mother tumor issues New job starting in December Still smoking unable stop Fatigue issues Normal Exam for Routine Visits: \Blood pressure 110/70, height 5' 5 (1.651 m), weight 163 lb (73.936 kg). General appearance: healthy appearing, active, alert, cooperative, no distress, social, normally nourished, and in no acute distress Head: Normocephalic, without obvious abnormality, atraumatic Eyes: conjunctivae/corneas clear. PERRLA, EOM's intact. Fundi benign. Lids appear normal. Ears: normal TM's (shiny without retraction) and external ear canals AU. No apparent lesions or masses. Hearing grossly normal. Nose: Nares normal. Septum midline. Mucosa normal. No drainage or sinus tenderness. Throat: Lips, mucosa, palate, oropharynx, and tongue normal. Teeth and gums normal. Oral mucosa unremarkable with non-inflamed posterior [...] abdomen. Lymphatics: No focal or generalized lymphadenopathy. None current Mood stable ASSESSMENT: Encounter Diagnoses Name Primary? Unspecified Backache Yes ??? Anxiety state ??? Tobacco use disorder ??? Need for Tdap vaccination Try wellbutrin tob cessation advised Form filled PLAN: Orders Placed This Encounter ? ? TDAP VACCINE >7 YO IM (ADULT) ??? POC URINALYSIS DIPSTICK ??? buPROPion XL 24 hour (WELLBUTRIN XL) 150 mg Oral tablet documented in this encounter Plan of Treatment Upcoming Encounters Date Type Department Care Team (Late st Contact Info) Description 05/19/2024 9:00 AM ELECTRON BEAM WELDER SETTER Appointment [facility] EEG S [facility] [address] [facility] [place] [address] Gadiel Majano MD [address] [place] [address] [address] [place] [address] 06/05/2024 8:30 AM ELECTRON BEAM WELDER SETTER Appointment [facility] S [facility] [address] [place] [address] Gadiel Majano MD [address] [place] [address] [address] [place] [address] 08/09/2024 4:00 PM CDT Office Visit [address] [place] [address] Jairo Matute, LISA [address] [place] [address] [address] [place] [address] 01/23/2025 3:20 PM CDT Office Visit [address] [place] [address] Gadiel Majano MD [address] [place] [address] [address] [place] [address] 08/03/2025 8:30 AM CDT Office Visit [facility] NEUROLOGY - [place] - [place] [address] [facility] [address] [place] [address] Aliza Lion MD [address] [facility] [address] [place] [address] documented as of this encounter Procedures Procedure Name Priority Date/Time Associated Diagnosis Comments POC URINALYSIS DIPSTICK NON AUTOMATED Routine 11/03/2012 4:28 PM CDT Unspecified Backache documented in this encounter Results * POC URINALYSIS DIPSTICK NON AUTOMATED (11/03/2012 4:28 PM CDT) COLOR UA Straw [facility] CLARITY UA Slightly Cloudy CLEAR [facility] SPECIFIC GRAVITY UA 1.015 1.003 - 1.035 [facility] PH UA 6.5 5 - 8 [facility] LEUKOCYTE ESTERASE UA Negative Negative [facility] NITRITE UA Negative Negative [facility] PROTEIN UA Negative Negative [facility] GLUCOSE UA Negative NEG [facility] KETONES UA 15 mg/dL NEG [facility] UROBILINOGEN UA 0.2 2.0 mg/dL [facility] BILIRUBIN UA Negative Negative [facility] BLOOD UA Negative NEG [facility] Urine specimen (specimen) 11/03/2012 4:28 PM CDT Gadiel Majano MD POINT OF CARE TESTIN G [facility] documented in this encounter Visit Diagnoses Diagnosis Unspecified Backache- Primary Backache, unspecified Anxiety state Anxiety state, unspecified Tobacco use disorder Need for Tdap vaccination Need for prophylactic vaccination with combined jhtwrpafkh-yzqorqq-sgnbiamzp (DTP) vaccine documented in this encounter Care Teams Flat Knitter Relationship Specialty Start Date End Date Gadiel Majano MD [address] [place] [address] PCP - General 02/25/07 documented as of this encounter
--- OUTSIDE RECORDS SUMMARY | 2024-05-11 14:59 | XMS_ITS | Encounter Summary ---
Author Organization [facility] Address [address] [place] [address] Care Team Providers Care Clinical Staff Educator Name Role Phone Gadiel Majano MD Primary Care Provider [phone] Reason for Visit * Reason Comments Dysmenorrhea ON NUVARING, STABBIN G PAINS Immunization/Injection 2ND GARDASIL-OFFI CE SUPPLIED-LEFT DELTOID Encounter Details Date Type Department Care Team (Late st Contact Info) Description 10/27/2011 10:00 AM CDT Office Visit [facility] BIOLOGY SPECIMEN TECHNICIAN - Medical [address] [address] Yesenia Friedman DO [address] [place] [address] [place] [address] Dysmenorrhea; Irregular menses; Need vaccination-viral disease Social History Tobacco Use [...] Reading Time Taken Comments Blood Pressure 120/80 10/27/2011 9:43 AM CDT Pulse - - Temperature - - Respiratory Rate - - Oxygen Saturation - - Inhaled Oxygen Concentration - - Weight 73.9 kg (163 lb) 10/27/2011 9:43 AM CDT Height 167.6 cm (5' 6 ) 10/27/2011 9:43 AM CDT Body Mass Index 26.31 10/27/2011 9:43 AM CDT documented in this encounter Progress Notes * Yesenia Friedman DO - 10/27/2011 11:24 AM CDT Chief Complaint: Heavy period, painful period Subjective: Trinh Corral is a 21 y.o. here today with above complaints. Patient was recently seen in the office for wwe. Patient was started on nuvaring at that time. Patient had been on ops prior to that and wanted another option. Patient reports that the first period she had with nuvaring was very heavy and she passed what she states looked like tissue. She now reports that she had not had a period the month before starting nuvaring. The second period she had was also heavy and she had pelvic pain with it. Here today for follow up and second gardasil. ROS: No fevers No changes in weight Objective: Blood pressure 120/80, height 5' 6 (1.676 m), weight 163 lb (73.936 kg), last menstrual period 10/20/2011. Gen: well appearing, no distress Abd: soft, non tender, non distended Pelvic: normal external genitalia. Cervix visualized and normal in appearance. Blood in vault. No uterine tenderness. No adnexal masses or fullness. No adnexal tenderness. No uterine tenderness. No cmt. Ext: no calf edema Assessment and Plan: Trinh Corral is a 21 y.o. here with menorrhagia and dysmenorrhea 1. States she had less problems when she was taking loestrin, but doesn't want to take a pill 2. Discussed may take several months to regulate menses 3. Will try nuvaring for another month. If no improvement will consider other options 4. Questions answered Yesenia Friedman DO documented in this encounter Plan of Treatment Upcoming Encounters Date Type Department Care Team (Late st Contact Info) Description 05/19/2024 9:00 AM PIPELINE SUPERINTENDENT DIVISION Appointment [facility] EEG [address] [place] [phone] Gadiel Majano MD [address] [place] [address] [address] [place] [address] 06/05/2024 8:30 AM PIPELINE SUPERINTENDENT DIVISION Appointment [facility] [address] [place] [phone] Gadiel Majano MD [address] [place] [address] [address] [place] [address] 08/09/2024 4:00 PM CDT Office Visit [address] [place] [address] Jairo Matute PA [address] [place] [address] [address] [place] [address] 01/23/2025 3:20 PM CDT Office Visit [address] [place] [address] Gadiel Majano MD [address] [place] [address] [address] [place] [address] 08/03/2025 8:30 AM CDT Office Visit [facility] NEUROLOGY - [place] - [facility] [address] [facility] [address] [place] [address] Aliza Lion MD [address] [facility] [address] [place] [address] documented as of this encounter Visit Diagnoses Diagnosis Dysmenorrhea Irregular menses Irregular menstrual cycle Need for prophylactic vaccination and inoculation against other viral diseases(V04.89) Need for prophylactic vaccination and inoculation against other viral diseases documented in this encounter Care Teams Clinical Staff Educator Relationship Specialty Start Date End Date Gadiel Majano MD [address] [place] [address] [address] [place] [address] PCP - General 02/25/07 documented as of this encounter
--- OUTSIDE RECORDS SUMMARY | 2024-05-11 14:59 | XMS_ITS | Encounter Summary ---
Author Organization [facility] Address [address] [place] [address] Care Team Providers Care Top Lift Nailer Name Role Phone Gadiel Majano MD Primary Care Provider Encounter Details Date Type Department Care Team (Late Contact Info) Description 06/22/2011 Orders Only [facility] Internal Medicine [address] [address] Gadiel Majano MD [address] [place] [address] Headache Social History Tobacco Use Types Packs/Day Years [...] (Late Contact Info) Description 05/19/2024 9:00 AM VENDING MACHINE HOST/HOSTESS Appointment [facility] EEG [address] [place] [address] [place] [address] Gadiel Majano MD [address] [place] [address] 06/05/2024 8:30 AM VENDING MACHINE HOST/HOSTESS Appointment [facility] MRI [address] [place] [address] [place] [address] Gadiel Majano MD [address] [place] [address] [address] [place] [address] 08/09/2024 4:00 PM CDT Office Visit [address] [place] [address] Jairo Matute, LISA [address] [place] [address] [address] [place] [phone] 01/23/2025 3:20 PM CDT Office Visit [place] [address] [place] [phone] Gadiel Majano MD [address] [place] [address] 08/03/2025 8:30 AM CDT Office Visit [facility] NEUROLOGY - [facility] [address] [facility] [address] [place] [address] Aliza Lion MD [address] [facility] [address] [place] [address] documented as of this encounter Procedures Procedure Name Priority Date/Time Associated Diagnosis Comments MRI BRAIN WO CONTRAST Routine 06/22/2011 Headache documented in this encounter Results * MRI BRAIN WO CONTRAST (06/22/2011) Anatomical Region Laterality Modality Head Other Gadiel Majano MD MR ORDERABLES documented in this encounter Visit Diagnoses Diagnosis Headache(784.0) Headache documented in this encounter Care Teams Top Lift Nailer Relationship Specialty Start Date End Date Gadiel Majano MD [address] [place] [address] [address] [place] [phone] PCP - General 02/25/07 documented as of this encounter
--- OUTSIDE RECORDS SUMMARY | 2024-05-11 14:59 | XMS_ITS | Encounter Summary ---
Author Organization [facility] Address [address] [place] [address] Care Team Providers Care Coordinate Measuring Equipment Operator Name Role Phone Gadile Majano MD Primary Care Provider [phone] Reason for Visit * Reason Comments Well Woman Exam 3rd gardasil inj. Encounter Details Date Type Department Care Team (Latest Contact Info) Description 10/03/2012 4:40 PM CDT Office Visit [facility] ELECTRIC MOTOR WINDERS ASSEMBLER - Medical [address] [place] [address] Yesenia Friedman DO [address] [facility] [address] [place] [id number] Routine gynecological examination (Primary Dx); Irregular menstrual cycle; Need for prophylactic vaccination and inoculation against other viral diseases Social History Tobacco Use Types Packs/Day Years [...] Sign Reading Time Taken Comments Blood Pressure 126/80 10/03/2012 4:39 PM CDT Pulse - - Temperature - - Respiratory Rate - - Oxygen Saturation - - Inhaled Oxygen Concentration - - Weight 75.8 kg (167 lb) 10/03/2012 4:39 PM CDT Height 165.1 cm (5' 5 ) 10/03/2012 4:39 PM CDT Body Mass Index 27.79 10/03/2012 4:39 PM CDT documented in this encounter Progress Notes * Yesenia Friedman DO - 10/04/2012 10:49 AM CDT CC: Well-Woman Exam HPI: Trinh Corral is a 22 y.o. who presents today for her annual well- woman exam. Patient reports she has been having problems with irregular menses. She had been using nuvaring but still had irregular periods. She stopped taking it a few months ago because she was not sexually active. Shecontinues to have irregular menses off of control as well. Would like to start something again to help with periods and for control. child care supervisor History: Irregular menses Denies abnormal Pap smears or STIs. Medical History: UTI Enlarged lymph nodes Surgical History: Lymph node removed Tonsillectomy Family History: Denies family history of gynecologic malignancies, breast cancer, or colon cancer Brother - lymphoma Social History: Denies alcohol, or illicit drugs. [...] changes in weight. Physical Exam: Filed Vitals: 10/03/12 1639 BP: 126/80 Height: 5' 5 (1.651 m) Weight: 167 lb (75.751 kg) General: [...] motional tenderness. Assessment/Plan: Trinh Corral is a 22 y.o. here today for Well-Woman Exam 1. Discussed options for control and irregular menses. Will try nuvaring again for now. Thinking about possibly trying iud. Options of mirena and copper discussed - would like mirena. 2. Exam today unremarkable, Pap smear was obtained 3. Health Maintenance - Third gardasil today 4. Patient instructed to return to office in one year for well woman exam uless need arises prior to that time. Yesenia Friedman DO * Serena Major - 10/04/2012 8:47 AM CDT Pt given 3rd gardasil inj in right arm .05mg tolerated well. [facility] documented in this encounter Plan of Treatment Upcoming Encounters Date Type Department Care Team (Late st Contact Info) Description 05/19/2024 9:00 AM DIRECTOR OF SPORTS MEDICINE Appointment [facility] EEG [address] [place] [address] [place] [phone] Gadiel Majano MD [address] [place] [phone] 06/05/2024 8:30 AM DIRECTOR OF SPORTS MEDICINE Appointment [facility] [address] [place] [address] [place] [phone] Gadiel Majano MD [address] [place] [phone] 08/09/2024 4:00 PM CDT Office Visit [facility] [address] [phone] Jairo Matute PA [address] [place] [address], [place] [phone] 01/23/2025 3:20 PM CDT Office Visit [facility] Primary Care [facility] [address] [facility] [address] [address] [place] [address] Gadiel Majano MD [address] [facility] [place] [address] [place] [address] 08/03/2025 8:30 AM CDT Office Visit [facility] NEUROLOGY - [place] - [place] [address] [facility] [place] [address] [place] [address] Aliza Lion MD [address] [facility] [address] [address] [place] [address] documented as of this encounter Procedures Procedure Name Priority Date/Time Associated Diagnosis Comments CHLAMYDIA AND GC, PAP VIAL Routine 10/03/2012 4:55 PM CDT CERV/VAG CYTOPATH, SUREPATH W/RFLX HPV Routine 10/03/2012 4:55 PM CDT Routine gynecological examination documented in this encounter Results * CHLAMYDIA AND GC, PAP VIAL (10/03/2012 4:55 PM CDT) CHLAMYDIA TRACHOMATIS DNA NOT DETECTED NOT DETECTED [facility] N GONORAE DNA, SDA NOT DETECTED NOT DETECTED [facility] SEE NOTE [facility] Comment: This test was performed using the BD ProbeTec(TM) Chlamydia trachomatis and Neisseria gonorrhoeae Amplified DNA Assays. Test Performed at: [facility] [address] [place], [place] ??[address] BROOK ORTIZ DO MHP 10/03/2012 4:55 PM CDT 10/04/2012 2:11 AM CDT Yesenia Friedman DO BODY FLUIDS AND STOO LS COM INTERFACE SYSTEM Refer to clinic/hospital department [facility] [address] [place] [address] * CERV/VAG CYTOPATH, SUREPATH W/RFLX HPV (10/03/2012 4:55 PM CDT) CLINICAL INFORMATION [facility] Comment:Information not prov ided LAST MENSTRUAL PERIOD [facility] Comment:09 02 2011 PREV PAP: [facility] Genome [facility] Comment:INFORMATION NOT PROV IDED PREV BX: [facility] Comment:INFORMATION NOT PROV IDED SOURCE [facility] Comment:Endocervix ADEQUACY: [facility] Comment: Satisfactory for evaluation. Endocervical/transformation zone component present. INTERPRETATION [facility] Comment:Negative for intraep ithelial lesion or malignancy. COMMENT [facility] Comment: Based on the cytology result, reflex High Risk HPV DNA testing was not performed. FLORAL ARRANGER: [employer] [facility] Comment: BLG, CT(ASCP) Test Performed at: [facility] [address] [place], [place] ??[address] BROOK ORTIZ DO MHP Endocervical 10/03/2012 4:55 PM CDT Yesenia Friedman DO PATHOLOGY/CYTOLOGY O RDERABLES Performing Organization Address [facility] Co de Phone Number INTERFACE SYSTEM Refer to clinic/hospital department [facility] [address] [place] [address] documented in this encounter Visit Diagnoses Diagnosis Routine gynecological examination- Primary Irregular menstrual cycle Need for prophylactic vaccination and inoculation against other viral diseases(V04.89) Need for prophylactic vaccination and inoculation against other viral diseases documented in this encounter Care Teams Coordinate Measuring Equipment Operator Relationship Specialty Start Date End Date Gadiel Majano MD [address] [place] [address] PCP - General 02/25/07 documented as of this encounter
--- OUTSIDE RECORDS SUMMARY | 2024-05-11 14:59 | XMS_ITS | Encounter Summary ---
Author Organization [facility] Address [address] [place] [address] Care Team Providers Care Waterproof Bag Cutting Machine Operator Name Role Phone Gadiel Majano MD Primary Care Provider [phone] Reason for Visit * Reason Onset Date Comments Results 06/22/2011 Encounter Details Date Type Department Care Team (Late Contact Info) Description 06/22/2011 Telephone [facility] Internal Medicine [address] [address] Gadiel Majano MD [address] [place] [phone] Results Social History Tobacco Use Types [...] Telephone Encounter - Gadiel Majano MD - 06/22/2011 5:04 PM CST E mail ET LIGHT REPAIRER HELPER documented in this encounter Plan of Treatment Upcoming Encounters Date Type Department Care Team (Late st Contact Info) Description 05/19/2024 9:[address] LIGHT REPAIRER HELPER Appointment [facility] EEG [address] [place] [address] [place] [phone] Gadiel Majano MD [address] [place] [address] [place] [address] 06/05/2024 8:[address] LIGHT REPAIRER HELPER Appointment [facility] S Replaced By [facility] [address] [place] [phone] Gadiel Majano MD [address] [place] [address] [address] [place] [address] 08/09/2024 4:00 PM CDT Office Visit [facility] [address] [place] [address] Jairo Matute PA [address] [place], [place] [address] [address] 01/23/2025 3:20 PM CDT Office Visit [address] [place] [address] Gadiel Majano MD [address] [place] [address] [address] [place] [address] 08/03/2025 8:30 AM CDT Office Visit [facility] NEUROLOGY - [place] - [place] [address] [facility] [address] [place] [address] Aliza Lion MD [address] [facility] [address] [place] [address] documented as of this encounter Visit Diagnoses Not on filedocumented in this encounter Care Teams Waterproof Bag Cutting Machine Operator Relationship Specialty Start Date End Date Gadiel Majano MD [address] [place] [address] [address] [place] [address] PCP - General 02/25/07 documented as of this encounter
--- OUTSIDE RECORDS SUMMARY | 2024-05-11 14:59 | XMS_ITS | Encounter Summary ---
Author Organization [facility] Address [address] [place] [address] Care Team Providers Care Stock Shipper Name Role Phone Gadiel Majano MD Primary Care Provider [phone] Reason for Visit * Reason Onset Date Comments Results 06/18/2011 Encounter Details Date Type Department Care Team (Late Contact Info) Description 06/18/2011 Telephone [facility] Internal Medicine [address] [address] Gadiel Majano MD [address] [place] [address] Results Social History Tobacco Use Types [...] Telephone Encounter - Gadiel Majano MD - 06/18/2011 8:12 AM CST email DRIER documented in this encounter Plan of Treatment Upcoming Encounters Date Type Department Care Team (Late st Contact Info) Description 05/19/2024 9:00 AM GERM DRIER Appointment [facility] EEG [address] [place] [address] [place] [phone] Gadiel Majano MD [address] [place] [address] [address] [place] [address] 06/05/2024 8:30 AM GERM DRIER Appointment [facility] [address] [phone] Gadiel Majano MD [address] [place] [address] [address] [place] [address] 08/09/2024 4:00 PM CDT Office Visit [address] [place] [address] Jairo Matute, LISA [address] [place] [address] [address] [place] [address] 01/23/2025 3:20 PM CDT Office Visit [address], [place] [address] Gadiel Majano MD [address] [place] [address] [address] [place] [address] 08/03/2025 8:30 AM CDT Office Visit [facility] NEUROLOGY - [place] - [place] [address] [facility] [address] [place] [address] Aliza Lion MD [address] [facility] [address] [place] [address] documented as of this encounter Visit Diagnoses Not on filedocumented in this encounter Care Teams Stock Shipper Relationship Specialty Start Date End Date Gadiel Majano MD [address] [place] [address] [address] [place] [address] PCP - General 02/25/07 documented as of this encounter
--- OUTSIDE RECORDS SUMMARY | 2024-05-11 14:59 | XMS_ITS | Encounter Summary ---
Author Organization [facility] Address [address] [place] [address] Care Team Providers Care Tomahawk Weapon System Operator Name Role Phone Gadiel Majano MD Primary Care Provider Encounter Details Date Type Department Care Team (Late Contact Info) Description 07/09/2011 Abstract [facility] Internal Medicine [address] [address] Gadiel Majano MD [address] [place] [address] Social History Tobacco Use Types Packs/Day [...] st Contact Info) Description 05/19/2024 9:00 AM CHIEF MARKETING OFFICER Appointment [facility] Support Services EEG [address] [place] [address] [place] [address] Gadiel Majano MD [address] [place] [address] 06/05/2024 8:30 AM CHIEF MARKETING OFFICER Appointment [facility] MRI [address] [place] [address] [facility] [place] [address] Gadiel Majano MD [address] [place] [address] [address] [place] [address] 08/09/2024 4:00 PM CDT Office Visit [facility] [address] [place] [address] [address] [place] [address] Jairo Matute, LISA [address] [place] [address] [address] [place] [address] 01/23/2025 3:20 PM CDT Office Visit [address] [place] [address] Gadiel Majano MD [address] [place] [address] [address] [place] [address] 08/03/2025 8:30 AM CDT Office Visit [facility] NEUROLOGY - [place] B [facility] [address] [facility] [address] [place] [address] Aliza Lion MD [address] [facility] [address] [place] [address] documented as of this encounter Visit Diagnoses Not on filedocumented in this encounter Care Teams Tomahawk Weapon System Operator Relationship Specialty Start Date End Date Gadiel Majano MD [address] [place] [address] [address] [place] [address] PCP - General 02/25/07 documented as of this encounter
--- OUTSIDE RECORDS SUMMARY | 2024-05-11 14:59 | XMS_ITS | Encounter Summary ---
Author Organization [facility] Address [address] [place] [address] Care Team Providers Care Office Rep Name Role Phone Gadiel Majano MD Primary Care Provider Reason for Referral * Outpatient Services (Routine) - Closed Specialty Diagnoses / Procedures Referred By Josie fitch Referred To Contact MRI Diagnoses Headache(784.0) Procedures MRI BRAIN WO CONTRAST Gadiel Majano MD [address] [place] [phone] [address] Referral ID Status Reason Start Date Expiration Date Visits Re quested Visits Authorized [id number] Closed 06/20/2011 09/18/2011 1 1 RVISOR VAT HOUSE Reason for Visit * Reason Comments Thyroid Problem Encounter Details Date Type Department Care Team (Late st Contact Info) Description 06/15/2011 3:45 PM SUPERVISOR VAT HOUSE Office Visit [facility] Internal Medicine [address] [phone] Gadiel Majano MD [address] [place] [address] [address] [place] [address] Hypoglycemia, unspecified; Nausea alone; Headache; Malaise and fatigue; Recurrent UTI Social History Tobacco Use Types [...] Reading Time Taken Comments Blood Pressure 110/70 06/15/2011 3:53 PM SUPERVISOR VAT HOUSE Pulse - - Temperature - - Respiratory Rate - - Oxygen Saturation - - Inhaled Oxygen Concentration - - Weight 75.3 kg (166 lb) 06/15/2011 3:53 PM SUPERVISOR VAT HOUSE Height 167.6 cm (5' 6 ) 06/15/2011 3:53 PM SUPERVISOR VAT HOUSE Body Mass Index 26.79 06/15/2011 3:53 PM SUPERVISOR VAT HOUSE documented in this encounter Progress Notes * Gadiel Majano MD - 06/15/2011 5:00 PM CST Subjective: Trinh Corral is a 20 y.o. female. Headaches 2-3 x per week x 2-3 months severe at times--new Nausea present with and without headaches Still with recurrent freq utis, urology unable to help her to date Fatigue issues present qu of thyromegaly with obstetrics gyn physician in summer Back doing ok Inc stress with school Inc stress with brother recent pos PET scan Patient Active Problem List Diagnoses Date Noted ??? UTI (urinary tract infection) 04/05/2011 ??? Nausea alone 04/05/2011 ??? Acute pyelonephritis 04/05/2011 ??? Dehydration 04/05/2011 ??? Hypoglycemia, Unspecified 04/18/2007 ??? Unspecified Backache 03/28/2007 Current Outpatient Prescriptions on File Prior to Visit Medication Sig Dispense Refill ??? ondansetron (ZOFRAN) 4 mg Oral Tab Take 4 mg by mouth every 8 hours as needed. ??? NORETH A-ET ESTRA/FE FUMARATE (LO LOESTRIN FE ORAL) Take by mouth. Allergies Allergen Reactions ??? No Known Allergies Past Medical History Diagnosis Date ??? UTI (urinary tract infection) Past Surgical History Procedure Date ??? Pt denies relevant surgical history Family History Problem Relation Age of Onset ??? Heart Disease Mother History Substance Use Topics ??? Smoking status: [...] Genitourinary: denies dysuria, frequency, incontinence, urgency Integementary, Breast: denies skin lesion(s), color change, lumps, masses, discharge, tenderness Hematologic, Oncologic, Lymphatic: denies: bruising, bleeding, lymphadenopathy, petechiae Musculoskeletal: denies: myalgia, arthralgia, stiff joints, neck pain, back pain, muscle weakness Neurological: denies blurry or disturbed vision, gait problems, dizziness, difficulty swallowing, muscle weakness, difficulty saying words, development appropriate for age Behavior, Psychologic: denies aggressive or problematic behavior, anxiety, mood issues, substance use, learning difficulty, unusual fears Endocrine: denies sudden changes in mood, temperature intolerance, occhypoglycemia reviewed Allergy: denies hives, swelling of extremities, issues with food, episodic puritis, chronic rhinitis, recurrent cough, seasonal issues Exam/Objective: Normal Female: Blood pressure 110/70, height 5' 6 (1.676 m), weight 166 lb (75.297 kg). General appearance: active, alert, cooperative, no [...] no adenopathy, thyroid: not enlarged, symmetric, no tenderness/mass/nodules, no carotid bruit and no JVD Back: symmetric, non tender mild flank tender [...] normal. No rashes or lesions Lymph nodes: Cervical, supraclavicular, normal. Neurologic: Grossly normal, cranial nerves II-XII grossly intact, , normal speech, normal gait. Fundi clear, pupier ERR Assessment and Plan: ASSESSMENT: 1. Hypoglycemia, unspecified LIPID PANEL, TSH, HEMOGLOBIN A1C 2. Nausea alone 3. Headache MRI BRAIN WO CONTRAST 4. Malaise and fatigue CBC WITH DIFFERENTIAL, COMPREHENSIVE METABOLIC PANEL, T4 FREE, T3 FREE, VITAMIN B12 LEVEL, VITAMIN D 25 HYDROXY urine reviewed, pt to go Wash U discussed Hiprex pt will look into Check lab Check mri head headaches concerning Discussed stress issues no rx for now PLAN: Orders Placed This Encounter ??? MRI BRAIN WO CONTRAST ??? CBC WITH DIFFERENTIAL ??? COMPREHENSIVE METABOLIC PANEL ??? LIPID PANEL ??? TSH ??? T4 FREE ??? T3 FREE ??? VITAMIN B12 LEVEL ??? VITAMIN D 25 HYDROXY ??? HEMOGLOBIN A1C Appropriate medications prescribed Appropriate patient instructions provided Follow-up as I have indicated. Medications and options explained to include common side effects. Understanding of medications, course, diagnosis, and expectations were expressed by patient/guardian. [employer] documented in this encounter Plan of Treatment Upcoming Encounters Date Type Department Care Team (Late st Contact Info) Description 05/19/2024 9:00 AM SUPERVISOR VAT HOUSE Appointment [facility] [address] [place] [phone] Gadiel Majano MD [address] [place] [phone] 06/05/2024 8:30 AM SUPERVISOR VAT HOUSE Appointment [facility] [address] [place] [address] Gadiel Majano MD [address] [place] [address] [address] [place] [address] 08/09/2024 4:00 PM CDT Office Visit [address] [place] [address] Jairo Matute PA [address] [place] [address] [address] [place] [address] 01/23/2025 3:20 PM CDT Office Visit [address] [place] [address] Gadiel Majano MD [address] [place] [address] [address] [place] [address] 08/03/2025 8:30 AM CDT Office Visit [facility] [address] [facility] [address] [place] [address] Aliza Lion MD [address] [facility] [address] [place] [address] documented as of this encounter Results * MRI BRAIN WO CONTRAST (06/22/2011) Anatomical Region Laterality Modality Head Other Gadiel Majano MD MR ORDERABLES documented in this encounter Visit Diagnoses Diagnosis Hypoglycemia, unspecified Nausea alone Headache(784.0) Headache Malaise and fatigue Other malaise and fatigue Recurrent UTI Urinary tract infection, site not specified documented in this encounter Care Teams Office Rep Relationship Specialty Start Date End Date Gadiel Majano MD [address] [place] [address] PCP - General 02/25/07 documented as of this encounter
--- OUTSIDE RECORDS SUMMARY | 2024-05-11 14:59 | XMS_ITS | Encounter Summary ---
Author Organization [facility] Address [address] [place]: [place] [address] Care Team Providers Care Community Outreach Director Name Role Phone Gadiel Majano MD Primary Care Provider Encounter Details Date Type Department Care Team (Late st Contact Info) Description 06/17/2011 Outpatient Historical Initial Department [address] [place]: [place] [address] Provider, Historical Social History Tobacco Use Types Packs/Day Years [...] (Late Contact Info) Description 05/19/2024 9:00 AM INTERIM CONTROLLER Appointment [facility] Support Services EEG [place] [address] [place] [address] Gadiel Majano MD [address] [place] [phone] 06/05/2024 8:30 AM INTERIM CONTROLLER Appointment [facility] MRI [address] [place] [address] [place] [phone] Gadiel Majano MD [address] [place] [phone] 08/09/2024 4:00 PM CDT Office Visit [address] [place] [address] Jairo Matute PA [address] [place] [address] [address] [place] [address] 01/23/2025 3:20 PM CDT Office Visit [address] [place] [address] Gadiel Majano MD [address] [place] [address] [address] [place] [address] 08/03/2025 8:30 AM CDT Office Visit [facility] NEUROLOGY - [facility] [address] [facility] [address] [place] [address] Aliza Lion MD [address] [facility] [address] [place] [address] Scheduled Orders Name Type Priority Associated Diagnoses Orde r Schedule LIPID PANEL Lab Routine Ordered: 05/25 LIPID PANEL Lab Routine Ordered: 05/25 LIPID PANEL Lab Routine Ordered: 05/25 LIPID PANEL Lab Routine Ordered: 05/25 LIPID PANEL Lab Routine Ordered: 05/25 COMPREHENSIVE METABOLIC PANEL Lab Routine Ordered: 06/17/2011 CBC WITH DIFFERENTIAL Lab Routine Ord ered: 06/17/2011 documented as of this encounter Procedures Procedure Name Priority Date/Time Associated Diagnosis Comments CBC WITH DIFFERENTIAL Routine 06/17/2011 7:13 AM INTERIM CONTROLLER VITAMIN D 25 HYDROXY Routine 06/17/2011 7:13 AM INTERIM CONTROLLER T3 FREE Routine 06/17/2011 7:13 AM INTERIM CONTROLLER TSH Routine 06/17/2011 7:13 AM INTERIM CONTROLLER T4 FREE Routine 06/17/2011 7:13 AM INTERIM CONTROLLER HEMOGLOBIN A1C Routine 06/17/2011 7:13 AM INTERIM CONTROLLER VITAMIN B12 LEVEL Routine 06/17/2011 7:1 3 AM INTERIM CONTROLLER LIPID PANEL Routine 06/17/2011 7:13 AM INTERIM CONTROLLER COMPREHENSIVE METABOLIC PANEL Routine 06/17/2011 7:13 AM INTERIM CONTROLLER documented in this encounter Results * VITAMIN D 25 HYDROXY (06/17/2011 7:13 AM INTERIM CONTROLLER) VITAMIN D, 25 OH, TOTAL 42 30 - 100 ng/mL [facility] VITAMIN D, 25 OH, D2 <4 ng/mL [employer] [facility] VITAMIN D, 25 OH, D3 42 ng/mL [employer] [facility] Comment: 25-OHD3 indicates both endogenous production and supplementation. 25-OHD2 is an indicator of exogenous sources such as diet or supplementation. Therapy is based on measurement of Total 25-OHD, with levels <20 ng/mL indicative of Vitamin D deficiency while levels between 20 ng/mL and 30 ng/mL suggest insufficiency. Optimal levels are >/=30 ng/mL. Test Performed at: [place] [address] [place], [place] ??[address] PATRICIA YEBOAH MD ?? 06/17/2011 7:13 AM INTERIM CONTROLLER Gadiel Majano MD CHEMISTRY ORDERABLES INTERFACE SYSTEM Refer to clinic/hospital department [employer] [facility] [address] [place] [address] * VITAMIN B12 LEVEL (06/17/2011 7:13 AM INTERIM CONTROLLER) VITAMIN B12 427 200 - 1100 pg/mL [facility] Comment: Test Performed at: [employer] [place] [address] [place] ??[phone] BROOK ORTIZ DO,MPH 06/17/2011 7:13 AM INTERIM CONTROLLER Gadiel Majano MD CHEMISTRY ORDERABLES Performing Organization Address [facility] Phone Number INTERFACE SYSTEM Refer to clinic/hospital department [facility] [address] [place] [address] * HEMOGLOBIN A1C (06/17/2011 7:13 AM INTERIM CONTROLLER) HEMOGLOBIN A1C 5.2 <5.7 % of total Hgb [facility] Comment: ?Decreased risk of diabetes ? <5.7 ? Decreased risk of diabetes ? 5.7-6.0 ?Increased risk of diabetes ? 6.1-6.4 ?Higher risk of diabetes ? > or = 6.5 Consistent with diabetes ?Standards of Medical Care in Diabetes-2010. ?Diabetes Care, 33(Supp 1): S1-S61,2010. Test Performed at: [employer] [address] ??[address] BROOK ORTIZ DO,MPH 06/17/2011 7:13 AM INTERIM CONTROLLER Gadiel Majano MD CHEMISTRY ORDERABLES Performing Organization Address [facility] de Phone Number INTERFACE SYSTEM Refer to clinic/hospital department [facility] [employer] [facility] [address] [place] [address] * T3 FREE (06/17/2011 7:13 AM INTERIM CONTROLLER) T3 FREE 3.5 2.3 - 4.2 pg/mL [facility] Comment: Test Performed at: [employer] [facility] ??[phone] BROOK ORTIZ DO,MPH 06/17/2011 7:13 AM INTERIM CONTROLLER Gadiel Majano MD CHEMISTRY ORDERABLES Performing Organization Address [facility] Phone Number INTERFACE SYSTEM Refer to clinic/hospital department [facility] [address] [place] [phone] * TSH (06/17/2011 7:13 AM INTERIM CONTROLLER) TSH 1.72 mIU/L [facility] Comment: Reference Range > or = 20 Years ??0.40-4.50 ? Ranges First trimester ?0.20-4.70 Second trimester ?? 0.30-4.10 Third trimester ?0.40-2.70 Test Performed at: [employer] [facility] ??[address] BROOK ORTIZ DO,MPH 06/17/2011 7:13 AM INTERIM CONTROLLER Gadiel Majano MD CHEMISTRY ORDERABLES Performing Organization Address [facility] Phone Number INTERFACE SYSTEM Refer to clinic/hospital department [employer] [facility] [address] [place] [phone] * T4 FREE (06/17/2011 7:13 AM INTERIM CONTROLLER) T4 FREE 1.1 0.8 - 1.8 ng/dL [facility] Comment: Test Performed at: [facility] [id number] [place] [address] ??[phone] BROOK ORTIZ DO,MPH 06/17/2011 7:13 AM INTERIM CONTROLLER Gadiel Majano MD CHEMISTRY ORDERABLES Performing Organization Address [facility] Phone Number INTERFACE SYSTEM Refer to clinic/hospital department [facility] [address] [place] [address] * COMPREHENSIVE METABOLIC PANEL (06/17/2011 7:13 AM INTERIM CONTROLLER) GLUCOSE 76 65 - 99 mg/dL [facility] Comment:Fasting reference in terval BUN 8 7 - 25 mg/dL [facility] CREATININE 0.67 0.50 - 1.10 mg/dL [facility] GFR 127 > OR = 60 mL/min/1 .73m2 [facility] GFR, 147 > OR = 60 mL/min/1 .73m2 [facility] BUN/CREAT RATIO NOT APPLICABLE 6 - 22 (calc) [facility] SODIUM 139 135 - 146 mmol/L [facility] POTASSIUM 4.1 3.5 - 5.3 mmol/L [facility] CHLORIDE 103 98 - 110 mmol/L [facility] CO2 26 21 - 33 mmol/L [facility] [employer] . [facility] CALCIUM 9.5 8.6 - 10.2 mg/dL [facility]. [facility] TOTAL PROTEIN 6.9 6.2 - 8.3 g/dL [facility] ALBUMIN 4.2 3.6 - 5.1 g/dL [facility] [employer] . [facility] GLOBULIN 2.7 2.2 - 3.9 g/dL (calc) [facility] ALBUMIN/GLOBULI N RATIO 1.6 1.0 - 2.1 (calc) [facility] BILIRUBIN TOTAL 0.4 0.2 - 1.2 mg/dL [facility] ALKALINE PHOSPHATASE 77 33 - 115 U/L [facility] AST 20 10 - 30 U/L [facility] ALT 27 6 - 40 U/L [facility] Comment: Test Performed at: [employer] [facility] [address] [place], [place] ??[address] BROOK ORTIZ DO 06/17/2011 7:13 AM INTERIM CONTROLLER Gadiel Majano MD CHEMISTRY ORDERABLES INTERFACE SYSTEM Refer to clinic/hospital department [facility] [address] [place] [address] * LIPID PANEL (06/17/2011 7:13 AM INTERIM CONTROLLER) CHOLESTEROL 158 125 - 200 mg/dL [facility] Comment: Test Performed at: [employer] [facility] [address] [place], [place] ??[phone] BROOK ORTIZ HDL 55 > OR = 46 mg/dL [facility]AGNOSTICS [facility] TRIGLYCERIDE 130 <150 mg/dL [facility] LDL CALCULATED 77 <130 mg/dL (calc) [facility] Comment: Desirable range <100 mg/dL for patients with CHD or diabetes and <70 mg/dL for diabetic patients with known heart disease. CHOL/HDL RATIO 2.9 < OR = 5.0 (calc) [facility] 06/17/2011 7:13 AM INTERIM CONTROLLER Gadiel Majano MD CHEMISTRY ORDERABLES INTERFACE SYSTEM Refer to clinic/hospital department [facility] [address] [place] [address] * CBC WITH DIFFERENTIAL (06/17/2011 7:13 AM INTERIM CONTROLLER) WBC 5.9 3.8 - 10.8 Thousand/u L [facility] RBC 4.24 3.80 - 5.10 Million/uL [facility] HEMOGLOBIN 13.6 11.7 - 15.5 g/dL [facility] HEMATOCRIT 39.6 35.0 - 45.0 % [facility] MCV 93.3 80.0 - 100.0 fL [facility] MCH 32.0 27.0 - 33.0 pg [facility] MCHC 34.2 32.0 - 36.0 g/dL [facility] RDW 12.8 11.0 - 15.0 % [facility] [employer] [facility] PLATELETS 238 140 - 400 Thousand/u L [facility] NEUTROPHIL ABSOLUTE 3,103 1,500 - 7,800 cells/uL [facility]AGNOSTICS [facility] LYMPHOCYTE ABSOLUTE 1,971 850 - 3,900 cells/uL [facility] [employer] [facility] MONOCYTE ABSOLUTE 590 200 - 950 cells/uL [facility] DIAGNOSTICS . [facility] EOSINOPHIL ABSOLUTE 218 15 - 500 cells/uL [facility] [employer] . [facility] BASOPHILS ABSOLUTE 18 0 - 200 cells/uL [facility] [employer] [facility] NEUTROPHIL 52.6 % [employer] [facility] LYMPHOCYTES 33.4 % [employer] [facility] MONOCYTE 10.0 % [employer] . [facility] EOSINOPHILS 3.7 % [employer] . [facility] BASOPHILS 0.3 % [employer] [employer] [facility] DIAGNOSTICS [facility] Comment: Test Performed at: [facility] [address] [place], [place] ??[address] BROOK ORTIZ DO 06/17/2011 7:13 AM INTERIM CONTROLLER Gadiel Majano MD HEMATOLOGY ORDERABLE S INTERFACE SYSTEM Refer to clinic/hospital department [facility] [address] [place] [address] documented in this encounter Visit Diagnoses Not on filedocumented in this encounter Care Teams Community Outreach Director Relationship Specialty Start Date End Date Gadiel Majano MD [address] [place] [phone] PCP - General 02/25/07 documented as of this encounter
--- OUTSIDE RECORDS SUMMARY | 2024-05-11 14:59 | XMS_ITS | Encounter Summary ---
Author Organization [facility] Address [address] [place] [address] Care Team Providers Care Structural Steel Erector Name Role Phone Gadiel Majano MD Primary Care Provider [phone] Reason for Visit * Auth/Cert - Closed Specialty Diagnoses / Procedures Referred By Josie t Referred To Contact [facility] Medical Surgical [address] [place] [address] Referral ID Status Reason Start Date Expiration Date Visits Re quested Visits Authorized [id number] Closed 04/06/2011 04/05/2012 1 Encounter Details Date Type Department Care Team (Late st Contact Info) Description 04/07/2011 10:30 AM DATA INTEGRATION DEVELOPER - 04/07/2011 11:59 PM [facility] [address] [place] [address] [place] [address] [place] [address] [facility] [address] [place] [address] Discharge Disposition: Home or Self Care Social [...] Sig Dispensed Refills Start Date End Date fosfomycin tromethamine (MONUROL) 3 gram Oral Pack Take 3 Gram by mouth every third day for 4 doses. 4 Packet 0 04/07/2011 04/17/2011 documented as of this encounter Plan of Treatment Upcoming Encounters Date Type Department Care Team (Late st Contact Info) Description 05/19/2024 9:00 AM DATA INTEGRATION DEVELOPER Appointment [facility] EEG S [facility] [address] [facility] [place] [phone] Gadiel Majano MD [address] [place] [address] 06/05/2024 8:30 AM DATA INTEGRATION DEVELOPER Appointment [facility] S [facility] [address] [place] [address] Gadiel Majano MD [address] [place] [phone] 08/09/2024 4:00 PM CDT Office Visit [facility] Care [place] [address] [place] [address] Jairo Matute, LISA [address] [place], [place] [address] [address] 01/23/2025 3:20 PM CDT Office Visit [place] [address] [place] [address] Gadiel Majano MD [address] [place] [address] [place] [address] 08/03/2025 8:30 AM CDT Office Visit [facility] NEUROLOGY - [place] [address] [facility] [address] [place] [address] Aliza Lion MD [address] [facility] [address] [place] [address] documented as of this encounter Procedures Procedure Name Priority Date/Time Associated Diagnosis Comments US RENAL AND BLADDER Routine 04/07/2011 2:05 PM DATA INTEGRATION DEVELOPER documented in this encounter Results * US RENAL AND BLADDER (04/07/2011 2:05 PM DATA INTEGRATION DEVELOPER) Anatomical Region Laterality Modality Abdomen Ultrasound 04/07/2011 1:52 PM DATA INTEGRATION DEVELOPER Impressions 04/07/2011 2:34 PM DATA INTEGRATION DEVELOPER IMPRESSION: Negative examination. Narrative 04/07/2011 2:34 PM DATA INTEGRATION DEVELOPER Ultrasound retroperitoneum, 04/07/2011. CLINICAL HISTORY: Recurrent urinary tract infection. Sagittal and transverse real-time examination reveals the right kidney to be 10.1 x 4.4 x 4.9 cm in size. The left kidney is 10.0 x 4.8 x 4.4 cm in size. There is normal echogenicity bilaterally. There is no evidence for mass, focal scarring or hydronephrosis on either side. No shadowing stones are seen. A survey of the urinary bladder was normal. Procedure Note Gilmer Trujillo MD - 04/07/2011 Ultrasound retroperitoneum, 04/07/2011. CLINICAL HISTORY: Recurrent urinary tract infection. Sagittal and transverse real-time examination reveals the right kidney to be 10.1 x 4.4 x 4.9 cm in size. The left kidney is 10.0 x 4.8 x 4.4 cm in size. There is normal echogenicity bilaterally. There is no evidence for mass, focal scarring or hydronephrosis on either side. No shadowing stones are seen. A survey of the urinary bladder was normal. IMPRESSION IMPRESSION: Negative examination. Kannan Willams MD US ORDERABLES documented in this encounter Visit Diagnoses Not on filedocumented in this encounter Care Teams Structural Steel Erector Relationship Specialty Start Date End Date Gadiel Majano MD [address] [place] [phone] PCP - General 02/25/07 documented as of this encounter
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
--- OUTSIDE RECORDS SUMMARY | 2024-05-11 15:00 | XMS_ITS | Encounter Summary ---
Author Organization [facility] Address [address] [place] [address] Care Team Providers Care Chimney Construction Supervisor Name Role Phone Gadiel Majano MD Primary Care Provider Encounter Details Date Type Department Care Team (Latest Contact Info) Description 05/30/2007 Orders Only HIS CONVERSION Conversion, History Social History Tobacco Use Types Packs/Day Years Used Date Smoking Tobacco: Never Assessed Sex and Gender Information Value Date Recorded Sex Assigned at Not on file Gender Identity Not on file Sexual Orientation Not on file documented as of this encounter Progress Notes * Conversion, History - 05/15/2008 10:42 AM STORE STANDARDS ASSOCIATE E STANDARDS ASSOCIATE documented in this encounter Plan of Treatment Upcoming Encounters Date Type Department Care Team (Late st Contact Info) Description 05/19/2024 9:00 AM STORE STANDARDS ASSOCIATE Appointment [facility] Support Services EEG [address] [place] [address] [place] [address] Gadiel Majano MD [address] [place] [phone] 06/05/2024 8:30 AM STORE STANDARDS ASSOCIATE Appointment [facility] MRI [address] [place] [address] [place] [address] Gadiel Majano MD [address] [place] [phone] 08/09/2024 4:00 PM CDT Office Visit [facility] Care [facility] [address] [facility] [address] [place] [address] Jairo Matute PA [address] [place] [address] [address] [place] [address] 01/23/2025 3:20 PM CDT Office Visit [address] [place] [address] Gadiel Majano MD [address] [place] [address] [address] [place] [address] 08/03/2025 8:30 AM CDT Office Visit [facility] NEUROLOGY [facility] [address] [facility] [address] [place] [address] Ailza Lion MD [address] [facility] [address] [place] [address] documented as of this encounter Visit Diagnoses Not on filedocumented in this encounter Care Teams Chimney Construction Supervisor Relationship Specialty Start Date End Date Gadiel Majano MD [address] [place] [address] [address] [place] [phone] PCP - General 02/25/07 documented as of this encounter
--- OUTSIDE RECORDS SUMMARY | 2024-05-11 15:00 | XMS_ITS | Encounter Summary ---
Author Organization [facility] Address [address] [place] [address] Care Team Providers Care Cellophane Tester Name Role Phone Gadiel Majano MD Primary Care Provider [phone] Encounter Details Date Type Department Care Team (Late Contact Info) Description 04/21/2007 Orders Only [facility] Internal Medicine [address] [address] Gadiel Majano MD [address] [place] [phone] Social History Tobacco Use Types Packs/Day Years Used Date Smoking Tobacco: Never Assessed Sex and Gender Information Value Date Recorded Sex Assigned at Not on file Gender Identity Not on file Sexual Orientation Not on file documented as of this encounter Progress Notes * Gadiel Majano MD - 10/06/2007 8:20 PM CDT WHO TOOK THE CALL: Gadiel Majano M TIME:03:59 pm head mri normal await echo result farrjsantosh 04/21/07 04:24 pm STAFF FOLLOW UP: Left following message. to call back. lyn [id number] spoke to mom. lyn Electronically Signed by: Tabitha Gomez on Sunday, April 22, 2007 documented in this encounter Plan of Treatment Upcoming Encounters Date Type Department Care Team (Late st Contact Info) Description 05/19/2024 9:00 AM MANUFACTURING SHIFT SUPERVISOR Appointment [facility] EEG [place] [address] [place] [phone] Gadiel Majano MD [address] [place] [address] [address] [place] [address] 06/05/2024 8:30 AM MANUFACTURING SHIFT SUPERVISOR Appointment [facility] S [facility] [address] [place] [phone] Gadiel Majano MD [address] [place] [address] [address] [place] [address] 08/09/2024 4:00 PM CDT Office Visit [address] [place] [address] Jairo Matute, LISA [address] [place] [address] [address] [place] [address] 01/23/2025 3:20 PM CDT Office Visit [address] [place], [place] [address] Gadiel Majano MD [address] [place] [address] [address] [place] [address] 08/03/2025 8:30 AM CDT Office Visit [facility] NEUROLOGY - [place] - [facility] [address] [facility] [address] [place] [address] Aliza Lion MD [address] [facility] [address] [place] [address] documented as of this encounter Visit Diagnoses Not on filedocumented in this encounter Care Teams Cellophane Tester Relationship Specialty Start Date End Date Gadiel Majano MD [address] [place] [address] [address] [place] [address] PCP - General 02/25/07 documented as of this encounter
--- OUTSIDE RECORDS SUMMARY | 2024-05-11 15:00 | XMS_ITS | Encounter Summary ---
Author Organization [facility] Address [address] [facility] Attn: [place] [address] Care Team Providers Care Wind Plant Manager Name Role Phone Gadiel Majano MD Primary Care Provider [phone] Encounter Details Date Type Department Care Team (Latest Contact Info) Description 04/11/2007 Orders Only Conversion, History Social History Tobacco Use Types Packs/Day Years Used Date Smoking Tobacco: Never Assessed Sex and Gender Information Value Date Recorded Sex Assigned at Not on file Gender Identity Not on file Sexual Orientation Not on file documented as of this encounter Progress Notes * Conversion, History - 05/14/2008 9:56 AM JEWELRY SALES ASSOCIATE LRY SALES ASSOCIATE * Conversion, History - 07/22/2007 5:14 AM JEWELRY SALES ASSOCIATE LRY SALES ASSOCIATE documented in this encounter Plan of Treatment Upcoming Encounters Date Type Department Care Team (Late st Contact Info) Description 05/19/2024 9:00 AM JEWELRY SALES ASSOCIATE Appointment [facility] Services [place] [address] [place] [address] Gadiel Majano MD [address] [place] [address] 06/05/2024 8:30 AM JEWELRY SALES ASSOCIATE Appointment [facility] MRI [place] [address] [place] [address] Gadiel Majano MD [address] [place] [address] 08/09/2024 4:00 PM CDT Office Visit [facility] [address] [facility] [address] [place] [address] Jairo Matute, LISA [address] [place] [address] [address] [place] [address] 01/23/2025 3:20 PM CDT Office Visit [facility] [address] [place] [address] [address] [place] [address] Gadiel Majano MD [address] [place] [address] [address] [place] [address] 08/03/2025 8:30 AM CDT Office Visit [facility] NEUROLOG[facility] - [facility] [address] [address] [facility] [address] [place] [address] Aliza Lion MD [address] [facility] [address] [place] [address] documented as of this encounter Visit Diagnoses Not on filedocumented in this encounter Care Teams Wind Plant Manager Relationship Specialty Start Date End Date Gadiel Majano MD [address] [place] [address] [address] [place] [address] PCP - General 02/25/07 documented as of this encounter
--- OUTSIDE RECORDS SUMMARY | 2024-05-11 15:00 | XMS_ITS | Encounter Summary ---
Author Organization [facility] Address [address] [place] [address] Care Team Providers Care Fiberglass Pipe Covering Supervisor Name Role Phone Gadiel Majano MD Primary Care Provider Encounter Details Date Type Department Care Team (Latest Contact Info) Description 02/25/2007 Outpatient Historical HIS IMG-LAB [facility] Gadiel Majano MD [address] [place] [address] Abdominal Pain, Generalized (Primary Dx) Social History Tobacco Use Types Packs/Day Years Used Date Smoking Tobacco: Never Assessed Sex and Gender Information Value Date Recorded Sex Assigned at Not on file Gender Identity Not on file Sexual Orientation Not on file documented as of this encounter Plan of Treatment Upcoming Encounters Date Type Department Care Team (Late st Contact Info) Description 05/19/2024 9:00 AM MACHINE ICER Appointment [facility] Support Services EEG [place] [address] [place] [address] Gadiel Majano MD [address] [place] [address] 06/05/2024 8:30 AM MACHINE ICER Appointment [facility] [address] [place] [address] [place] [address] Gadiel Majano MD [address] [place] [address] 08/09/2024 4:00 PM CDT Office Visit [facility] Care [facility] [address] [place] [address] [address] [place] [address] Jairo Matute PA [address] [place] [address] [address] [place] [address] 01/23/2025 3:20 PM CDT Office Visit [address] [place] [address] Gadiel Majano MD [address] [place] [address] [address] [place] [address] 08/03/2025 8:30 AM CDT Office Visit [facility] NE[facility] - [facility] [address] [address] [facility] [address] [place] [address] Aliza Lion MD [address] [facility] [address] [place] [address] documented as of this encounter Visit Diagnoses Diagnosis Abdominal pain, generalized- Primary documented in this encounter Care Teams Fiberglass Pipe Covering Supervisor Relationship Specialty Start Date End Date Gadiel Majano MD [address] [place] [address] [address] [place] [address] PCP - General 02/25/07 documented as of this encounter
--- OUTSIDE RECORDS SUMMARY | 2024-05-11 15:00 | XMS_ITS | Encounter Summary ---
Author Organization [facility] Address [address] [place] [address] Care Team Providers Care Used Car Make Ready Worker Name Role Phone Gadiel Majano MD Primary Care Provider Reason for Referral * Consultation (Routine) - Closed Specialty Diagnoses / Procedures Referred By Contac t Referred To Contact Orthopedic Surgery Diagnoses Foot injury Gadiel Majano MD [address] [facility] [address] [place] [address] Demond Headley MD [address] [place] [address] Referral ID Status Reason Start Date Expiration Date V isits Requested Visits Authorized [id number] Closed Ordering Dept To Review (STL) 04/10/2009 04/10/2010 3 3 R MACHINE OPERATOR Reason for Visit * Reason Comments Ankle Pain fell at school today injured left ankle and foot Encounter Details Date Type Department Care Team (Late st Contact Info) Description 04/10/2009 2:15 PM TUBER MACHINE OPERATOR Office Visit [facility] Internal Medicine [address] [address] Gadiel Majnao MD [address] [place] [address] [address] [place] [address] Foot Injury (Primary Dx) Social History Tobacco Use Types [...] Sign Reading Time Taken Comments Blood Pressure 120/60 04/10/2009 2:27 PM TUBER MACHINE OPERATOR Pulse - - Temperature - - Respiratory Rate - - Oxygen Saturation - - Inhaled Oxygen Concentration - - Weight - - Height - - Body Mass Index - - documented in this encounter Progress Notes * Gadiel Majano MD - 04/10/2009 3:48 PM CST Twisted foot today diffic walking Mild swelling Some paresthesias in foot The patient appears alert, well appearing, and in no distress.-, Chest:clear to auscultation, no wheezes, rales or rhonchi, symmetric air entry. Heart sounds are normal. Foot archilles tender, lat footwear sales representative ASSESSMENT: Encounter Diagnosis Name Primary? Foot Injury Yes The patient was advised that NSAID-type medications have two very important potential side effects:gastrointestinal irritation including hemorrhage and renal injuries. She was asked to take the medication with food and to stop if she experiences any GI upset. I asked her to call for vomiting, abdominal pain or black/bloody stools. The patient expresses understanding of these issues and questionswere answered. PLAN: Orders Placed This Encounter ??? Amb referral to orthopedic surgery ??? Meloxicam 15 mg tab R MACHINE OPERATOR documented in this encounter Plan of Treatment Upcoming Encounters Date Type Department Care Team (Late st Contact Info) Description 05/19/2024 9:00 AM TUBER MACHINE OPERATOR Appointment [facility] Services EEG [place] [address] [place] [address] Gadiel Majano MD [address] [place] [address] 06/05/2024 8:30 AM TUBER MACHINE OPERATOR Appointment [facility] [place] [address] [place] [address] Gadiel Majano MD [address] [place] [address] [address] [place] [address] 08/09/2024 4:00 PM CDT Office Visit [facility] [address] [place] [address] [address] [place] [address] Jairo Matute, LISA [address] [place] [address] [address] [place] [address] 01/23/2025 3:20 PM CDT Office Visit [address] [place] [address] Gadiel Majano MD [address] [place] [address] [address] [place] [address] 08/03/2025 8:30 AM CDT Office Visit [facility] NEUROLOGY - [facility] 5003B [address] [facility] [address] [place] [address] Aliza Lion MD [address] [facility] [address] [place] [address] Scheduled Referrals Name Type Priority Associated Diagnoses Order Schedule AMB REFERRAL TO ORTHOPEDIC SURGERY Outpatient Referral Routine Foot Injury Ordered: 04/10/2009 documented as of this encounter Visit Diagnoses Diagnosis Foot injury- Primary Injury, other and unspecified, knee, leg, ankle, and foot documented in this encounter Care Teams Used Car Make Ready Worker Relationship Specialty Start Date End Date Gadiel Majano MD [address] [place] [address] [address] [place] [address] PCP - General 02/25/07 documented as of this encounter
--- OUTSIDE RECORDS SUMMARY | 2024-05-11 15:00 | XMS_ITS | Encounter Summary ---
Author Organization [facility] Address [address] [place] [address] Care Team Providers Care Automotive Generator Repairer Name Role Phone Gadiel Majano MD Primary Care Provider Encounter Details Date Type Department Care Team (Late st Contact Info) Description 03/21/2007 Orders Only [facility] [address] [address] Gadiel Majano MD [address] [place] [address] Social History Tobacco Use Types Packs/Day Years Used Date Smoking Tobacco: Never Assessed Sex and Gender Information Value Date Recorded Sex Assigned at Not on file Gender Identity Not on file Sexual Orientation Not on file documented as of this encounter Progress Notes * Gadiel Majano MD - 10/07/2007 2:18 PM CDT TIME:12:18 pm PATIENT`S HOME PHONE: PATIENT`S WORK PHONE: PATIENT`S INSURANCE: [employer] WHO TOOK THE CALL: Nicol Bryson L GENERAL INFORMATION WHO CALLED: Patient`s mother called. Ioxn -[phone] PROBLEMS: PAIN: Patient complains of back pain. The onset was approximately 2 years ago. The patient has tried treatment by chiropractor, a brace, physical therapy, ibuprofen. upper back. She had previously taken muscle relaxers, but they made her dizzy. She's had back x-rays that were ordered by her Mud Jack Nozzle Worker. Her chiropractor is recommending that she have an MRI of her back & that she be referred to a orth. SECTION 1: REQUESTED ACTION [email or web address] 03/21/07 at 12:23 pm: SPECIALTY REFERRAL: ORTHOPEDICS DOCTOR`S RESPONSE: carlos 03/21/07 at 12:25 pm need copies of previous workup, than she needs appt , need proper documentation for ordering above testing-needs precert FINAL ACTION: pablo 03/21/07 at 05:41 pm Spoke with patient 03/21/07 at 05:41 pm. documented in this encounter Plan of Treatment Upcoming Encounters Date Type Department Care Team (Late st Contact Info) Description 05/19/2024 9:00 AM MEASUREMENT OPERATOR Appointment [facility] Support Services EEG [place] [address] [place] [address] Gadiel Majano MD [address] [place], [place] [address] 06/05/2024 8:30 AM MEASUREMENT OPERATOR Appointment [facility] MRI [place] [address] [place] [address] Gadiel Majano MD [address] [place] [address] 08/09/2024 4:00 PM CDT Office Visit [address], [place] [address] Jairo Matute PA [address] [place] [address] [address] [address] 01/23/2025 3:20 PM CDT Office Visit [address] [place] [address] Gadiel Majano MD [address] [place] [address] [address] [place] [phone] 08/03/2025 8:30 AM CDT Office Visit [facility] NEUROLOG[facility] - [facility] [address] [facility] [address] [place] [address] Aliza Lion MD [address] [facility] [address] [place] [address] documented as of this encounter Visit Diagnoses Not on filedocumented in this encounter Care Teams Automotive Generator Repairer Relationship Specialty Start Date End Date Gadiel Majano MD [address] [place] [address] [address] [place] [address] PCP - General 02/25/07 documented as of this encounter
--- OUTSIDE RECORDS SUMMARY | 2024-05-11 15:00 | XMS_ITS | Encounter Summary ---
Author Organization [facility] Address [address] [place] [address] Care Team Providers Care Body Press Operator Name Role Phone Gadiel Majano MD Primary Care Provider [phone] Reason for Visit * Reason Onset Date Comments Results 02/25/2009 Encounter Details Date Type Department Care Team (Late st Contact Info) Description 02/25/2009 Telephone [facility] Internal Medicine [address] [facility] [address] [place] [address] Katey Nash NP [address] [place] [address] Results Social History Tobacco Use Types Packs/Day Years Used Date Smoking Tobacco: Never Alcohol Use Standard Drinks/Week Comments No 0 (1 standard drink = 0.6 oz pur e alcohol) Sex and Gender Information Value Date Recorded Sex Assigned at Not on file Gender Identity Not on file Sexual Orientation Not on file documented as of this encounter Miscellaneous Notes * Telephone Encounter - [facility] Plaza - 02/25/2009 5:43 PM CDT Spoke with mother given message , Pt. Will call back if she wants referral. * Telephone Encounter - Katey Nash NP - 02/25/2009 11:45 AM CDT I can refer to ortho for evaluation if her pain is still there. * Telephone Encounter - Katey Nash NP - 02/25/2009 11:43 AM CDT X -ray of left hip negative. documented in this encounter Plan of Treatment Upcoming Encounters Date Type Department Care Team (Late st Contact Info) Description 05/19/2024 9:00 AM SNOUT PULLER Appointment [facility] [address] [place] [address] Gadiel Majano MD [address] [place] [address] 06/05/2024 8:30 AM SNOUT PULLER Appointment [facility] [address] [place] [address] Gadiel Majano MD [address] [place], [place] [address] 08/09/2024 4:00 PM CDT Office Visit [address], [place] [address] Jairo Matute PA [address] [place], [place] [address] [place] [address] 01/23/2025 3:20 PM CDT Office Visit [address] [place] [address] Gadiel Majano MD [address] [place] [address] 102 [place] [address] 08/03/2025 8:30 AM CDT Office Visit [facility] NEUROLOGY - [facility] 5003B [address] [facility] [address] [place] [address] Aliza Lion MD [address] [facility] [address] [place] [address] documented as of this encounter Visit Diagnoses Not on filedocumented in this encounter Care Teams Body Press Operator Relationship Specialty Start Date End Date Gadiel Majano MD [address] [place] [address] [address] [place] [address] PCP - General 02/25/07 documented as of this encounter
--- OUTSIDE RECORDS SUMMARY | 2024-05-11 15:00 | XMS_ITS | Encounter Summary ---
Author Organization [facility] Address [address] [place] [address] Care Team Providers Care Senior Data Analyst Name Role Phone Gadiel Majano MD Primary Care Provider [phone] Encounter Details Date Type Department Care Team (Late Contact Info) Description 07/10/2010 Abstract [facility] Internal Medicine [address] [address] Gadiel Majano MD [address] [place] [address] Social History Tobacco Use Types Packs/Day [...] st Contact Info) Description 05/19/2024 9:00 AM HOT STRIP FINISHER Appointment [facility] Support Services EEG [place] [address] [place] [address] Gadiel Majano MD [address] [place] [address] 06/05/2024 8:30 AM HOT STRIP FINISHER [facility] [place] [address] [place] [address] Gadiel Majano MD [address] [place] [address] [address] [place] [address] 08/09/2024 4:00 PM CDT Office Visit [facility] [address] [facility] [address] [place] [address] Jairo Matute, LISA [address] [place] [address] [address] [place] [address] 01/23/2025 3:20 PM CDT Office Visit [address] [place] [address] Gadiel Majano MD [address] [place] [address] [address] [place] [address] 08/03/2025 8:30 AM CDT Office Visit [facility] NEUROLOG[facility] - [place] [facility] 5[address]B [address] [facility] [address] [place] [address] Aliza Lion MD [address] [facility] [address] [place] [address] documented as of this encounter Visit Diagnoses Not on filedocumented in this encounter Care Teams Senior Data Analyst Relationship Specialty Start Date End Date Gadiel Majano MD [address] [place] [address] [address] [place] [address] PCP - General 02/25/07 documented as of this encounter
--- OUTSIDE RECORDS SUMMARY | 2024-05-11 15:00 | XMS_ITS | Encounter Summary ---
Author Organization [facility] Address [address] [place] [address] Care Team Providers Care Traffic Officer Name Role Phone Gadiel Majano MD Primary Care Provider [phone] Encounter Details Date Type Department Care Team (Latest Contact Info) Description 02/25/2007 Orders Only HIS CONVERSION Conversion, History Social History Tobacco Use Types Packs/Day Years Used Date Smoking Tobacco: Never Assessed Sex and Gender Information Value Date Recorded Sex Assigned at Not on file Gender Identity Not on file Sexual Orientation Not on file documented as of this encounter Progress Notes * Conversion, History - 05/21/2008 5:07 PM SUPERVISOR TUNNEL HEADING RVISOR TUNNEL HEADING * Conversion, History - 05/21/2008 11:16 AM SUPERVISOR TUNNEL HEADING RVISOR TUNNEL HEADING * Conversion, History - 05/10/2008 6:12 PM SUPERVISOR TUNNEL HEADING RVISOR TUNNEL HEADING * Conversion, History - 05/07/2008 4:02 PM SUPERVISOR TUNNEL HEADING RVISOR TUNNEL HEADING documented in this encounter Plan of Treatment Upcoming Encounters Date Type Department Care Team (Late st Contact Info) Description 05/19/2024 9:00 AM SUPERVISOR TUNNEL HEADING Appointment [facility] EEG [place] [address] [facility] [place] [address] Gadiel Majano MD [address] [place] [address] 06/05/2024 8:30 AM SUPERVISOR TUNNEL HEADING Appointment [facility] [address] [facility] [place] [address] Gadiel Majano MD [address] [place] [address] [address] [place] [address] 08/09/2024 4:00 PM CDT Office Visit [facility] [address] [place] [address] [address] [place] [address] Jairo Matute, LISA [address] [place] [address] [address] [place] [address] 01/23/2025 3:20 PM CDT Office Visit [facility] [address] [place] [address] [address] [place] [address] Gadiel Majano MD [address] [place] [address] [address] [place] [address] 08/03/2025 8:30 AM CDT Office Visit [facility] - [facility] 5003B [address] [facility] [address] [place] [address] Aliza Lion MD [address] [facility] [address] [place] [address] documented as of this encounter Visit Diagnoses Not on filedocumented in this encounter Care Teams Traffic Officer Relationship Specialty Start Date End Date Gadiel Majano MD [address] [place] [address] [address] [place] [address] PCP - General 02/25/07 documented as of this encounter
--- OUTSIDE RECORDS SUMMARY | 2024-05-11 15:00 | XMS_ITS | Encounter Summary ---
Author Organization [facility] Address [address] [place] [address] Care Team Providers Care Deputy Probation Officer Name Role Phone Gadiel Majano MD Primary Care Provider Encounter Details Date Type Department Care Team (Latest Contact Info) Description 04/21/2007 Outpatient Historical HIS IMG-LAB [facility] Gadiel Majano MD [address] [place] [address] Syncope and Collapse (Primary Dx) Social History Tobacco Use Types Packs/Day Years Used Date Smoking Tobacco: Never Assessed Sex and Gender Information Value Date Recorded Sex Assigned at Not on file Gender Identity Not on file Sexual Orientation Not on file documented as of this encounter Plan of Treatment Upcoming Encounters Date Type Department Care Team (Late st Contact Info) Description 05/19/2024 9:00 AM MOLD FILLER PLASTIC DOLLS Appointment [facility] Support Services EEG [address] [place] [address] [place] [address] Gadiel Majano MD [address] [place] [address] 06/05/2024 8:30 AM MOLD FILLER PLASTIC DOLLS [facility]ment [facility] [place] [address] [place] [address] Gadiel Majano MD [address] [place] [address] 08/09/2024 4:00 PM CDT Office Visit [facility] [address] [place] [address] [address] [place] [address] Jairo Matute PA [address] [place] [address] [address] [place] [address] 01/23/2025 3:20 PM CDT Office Visit [address] [place] [address] Gadiel Majano MD [address] [place] [address] [address] [place] [address] 08/03/2025 8:30 AM CDT Office Visit [facility] [address] [facility] [address] [place] [address] Aliza Lion MD [address] [facility] [address] [place] [address] documented as of this encounter Visit Diagnoses Diagnosis Syncope and collapse- Primary documented in this encounter Care Teams Deputy Probation Officer Relationship Specialty Start Date End Date Gadiel Majano MD [address] [place] [address] [address] [place] [address] PCP - General 02/25/07 documented as of this encounter
--- OUTSIDE RECORDS SUMMARY | 2024-05-11 15:00 | XMS_ITS | Encounter Summary ---
Author Organization [facility] Address [address] [place] [address] Care Team Providers Care Aircraft Systems Technician Name Role Phone Gadiel Majano MD Primary Care Provider [phone] Reason for Visit * Reason Comments Urinary Pain got meds from an urg ent care last week but didn't help Encounter Details Date Type Department Care Team (Late st Contact Info) Description 09/19/2007 10:00 AM CDT Office Visit [facility] Internal Medicine [address] [address] Gadiel Majano MD [address] [place] [phone] Urinary Tract Infection (Primary Dx) Social History Tobacco Use Types Packs/Day Years Used Date Smoking Tobacco: Never Assessed Sex and Gender Information Value Date Recorded Sex Assigned at Not on file Gender Identity Not on file Sexual Orientation Not on file documented as of this encounter Last Filed Vital Signs Vital Sign Reading Time Taken Comments Blood Pressure 110/58 09/19/2007 10:25 AM CDT Pulse - - Temperature 36.4 ??C (97.5 ??F) 09/19/2007 10:25 AM C DT Respiratory Rate - - Oxygen Saturation - - Inhaled Oxygen Concentration - - Weight 61.7 kg (136 lb) 09/19/2007 10:25 AM CDT Height - - Body Mass Index - - documented in this encounter Progress Notes * Gadiel Majano MD - 09/19/2007 11:04 AM CDT Was at clinic last week with uti, given septra still with sx frequency felt hot The patient appears alert, well appearing, and in no distress.- throat normal without erythema or exudate., Chest:clear to auscultation, no wheezes, rales or rhonchi, symmetric air entry. Heart sounds are normal. Abdomen soft, nontender, no masses or organomegaly. ASSESSMENT: Encounter Diagnosis Name Primary? Urinary Tract Infection Yes Push fluids, take antibiotics as directed, patient may use OTC pyridium as desired. PLAN: Orders Placed This Encounter Procedure ??? Urinalysis with reflex culture ??? Ciprofloxacin 500 mg tab ??? Phenazopyridine 100 mg tab documented in this encounter Plan of Treatment Upcoming Encounters Date Type Department Care Team (Late st Contact Info) Description 05/19/2024 9:00 AM SHOW CARD WRITER Appointment [facility] [address] [place] [address] [place] [phone] Gadiel Majano MD [address] [place] [phone] 06/05/2024 8:30 AM SHOW CARD WRITER Appointment [facility] [address] [place] [address] [place] [address] Gadiel Majano MD [address] [place] [phone] 08/09/2024 4:00 PM CDT Office Visit [address] [phone] Jairo Matute PA [address] [place] [phone] 01/23/2025 3:20 PM CDT Office Visit [place] [phone] Gadiel Majano MD [address] [facility] [address] [place] [address] 08/03/2025 8:30 AM CDT Office Visit [facility] NEUROLOGY - [place] [facility] - [facility] [address] [facility]NOTE 2] [address] [place] [address] Aliza Lion MD [address] [facility] [address] [place] [address] documented as of this encounter Procedures Procedure Name Priority Date/Time Associated Diagnosis Comments URINALYSIS WITH REFLEX CULTURE Routine 10/05/2007 6:00 AM CDT Urinary Tract Infection documented in this encounter Results * URINALYSIS WITH REFLEX CULTURE (10/05/2007 6:00 AM CDT) COLOR UA TNP/240 [employer] [facility] Comment: * ?? TEST NOT PERFORMED. ?* * ?? AN ELECTRONIC TEST REQUEST ?? * * ?? WAS TRANSMITTED TO [facility] ? * * ?? DIAGNOSTICS, BUT NO SPECIMEN * * ?? WAS RECEIVED. ?* SEE NOTE SEE NOTE [facility] Comment: THIS URINE WAS EXAMINED MICROSCOPICALLY FOR THE PRESENCE OF WBC, RBC, BACTERIA, CASTS AND OTHER FORMED ELEMENTS. ??ONLY THOSE ELEMENTS SEEN WERE REPORTED. NO COLLECTION DATE RECEIVED. WE HAVE USED THE DATE THE SPECIMEN WAS RECEIVED BY THIS LABORATORY THE COLLECTION DATE. IF THIS IS INCORRECT, PLEASE CONTACT CLIENT SERVICES. PHONE NUMBER: [phone] Test Performed at: [employer] [place] [address] [place], [place] ??[address] BROOK ARMANDO MD Urine, clean catch Gadiel Majano MD URINE ORDERABLES [employer] [facility] [address] [place] [address] documented in this encounter Visit Diagnoses Diagnosis Urinary tract infection- Primary Urinary tract infection, site not specified documented in this encounter Care Teams Aircraft Systems Technician Relationship Specialty Start Date End Date Gadiel Majano MD [address] [place] [phone] PCP - General 02/25/07 documented as of this encounter
--- OUTSIDE RECORDS SUMMARY | 2024-05-11 15:00 | XMS_ITS | Encounter Summary ---
Author Organization [facility] Address [address] [place] [address] Care Team Providers Care Laundry Superintendent Name Role Phone Gadiel Majano MD Primary Care Provider [phone] Encounter Details Date Type Department Care Team (Late st Contact Info) Description 05/26/2007 Orders Only [facility] Internal Medicine [address] [address] Gadiel Majano MD [address] [place] [phone] Social History Tobacco Use Types Packs/Day Years Used Date Smoking Tobacco: Never Assessed Sex and Gender Information Value Date Recorded Sex Assigned at Not on file Gender Identity Not on file Sexual Orientation Not on file documented as of this encounter Progress Notes * Gadiel Majano MD - 10/05/2007 4:23 PM CDT TIME:09:58 am PATIENT`S HOME PHONE: PATIENT`S WORK PHONE: PATIENT`S INSURANCE: [employer] WHO TOOK THE CALL: Nicol Bryson L GENERAL INFORMATION WHO CALLED: Patient`s mother called. [phone] CURRENT ALLERGY LIST: [facility] NUMBER: [phone] PROBLEMS: Has Chills. Sneezing. CONGESTION: Patient complains of sinus congestion. The symptoms began approximately 2 days ago. SORE THROAT: Patient complains of sore throat. The sore throat began approximately 2 days ago. Has large white spots in back of throat. Thinks she has strep throat. SECTION 1: REQUESTED ACTION licasl 05/26/07 at 10:01 am: MEDICATION REQUEST: Patient wants medications and can not come in. DOCTOR`S RESPONSE: carlos 05/26/07 at 10:19 am see today--prefer do cx FINAL ACTION: imanisasha 05/26/07 at 10:24 am Left message on patient`s recorder or with a family member 05/26/2007 at 10:25 am. SECTION 2: FINAL ACTION: becca 05/26/07 at 11:07 am Spoke with patient 05/26/07 at 11:07 am. Booked appointment: Electronically Signed by: Mackenzie Bustamante on May * Gadiel Majano MD - 10/05/2007 4:15 PM CDT WEIGHT: 136lbs BLOOD PRESSURE: 110/70 Right Arm Sitting TEMPERATURE: 36.22??c Oral NURSE NAME: Yesenia Plaza R TOBACCO USE Patient does not currently use tobacco. CHIEF COMPLAINT Patient complains of sore throat. HISTORY: 2d sore throat, pt upset about issues with back still with pain wants to horseback ride PHYSICAL EXAMINATION: EARS, NOSE, MOUTH AND THROAT: EARS: EFFUSION PRESENT BILATERALLY. ORAL: OROPHARYNX ERYTHEMATOUS. NECK/THYROID: Trachea midline. No thyroid enlargement, tenderness, or mass. No supraclavicular or cervical adenopathy. RESPIRATORY: Clear to auscultation and percussion. Normal respiratory effort. CARDIOVASCULAR: CARDIAC: Regular rhythm. No murmurs, rubs, or gallops. EDEMA/VARICOSITIES OF EXTREMITIES: No edema or varicosities. LYMPHATICS: No lymphadenopathy in the neck. GASTROINTESTINAL: ABDOMEN: Soft, non-tender, without masses. Bowel sounds active. LIVER/SPLEEN/KIDNEY: No hepatosplenomegaly, tenderness or nodularity. Kidneys not palpable. OFFICE PROCEDURES: RAPID STREP: Neg. ASSESSMENT/PLAN: 724.5-BACK PAIN discussed pt going for another opinion, advised against horseback riding, discussedagain with pt and mother 461.9-SINUSITIS UNSPECIFIED strep neg, rx only if worsens MEDICATIONS: CEFUROXIME AXETIL ORAL TABLET 250 MG, 1 Two Times A Day, 20 Dispensed, 10 Duration/Days Supply, status: NEW PRESCRIPTION, 05/26/2007. 462-PHARYNGITIS LAB ORDERS: Order number: [id number] Test Ordered: RAPID STREP [id number] Patient Education: Risks, benefits, and possible side effects of medication(s) were reviewed with the patient. The patient was allowed to ask questions to stated satisfaction.mother RETURN VISIT : Instructed to call if not improving. Electronically Signed by: Gadiel Majano MD on May documented in this encounter Plan of Treatment Upcoming Encounters Date Type Department Care Team (Late st Contact Info) Description 05/19/2024 9:00 AM TEXTILE FINISHER Appointment [facility] [address] [place] [address] [place] [phone] Gadiel Majano MD [address] [place] [phone] 06/05/2024 8:30 AM TEXTILE FINISHER Appointment [facility] S [facility] [place] [address] [place] [phone] Gadiel Majano MD [address] [place] [phone] 08/09/2024 4:00 [place] [phone] Jairo Matute PA [address] [place] [phone] 01/23/2025 3:20 [place] [phone] Gadiel Majano MD [address] [place], [place] [phone] 08/03/2025 8:30 AM CDT Office Visit [facility] NE[facility]OLOG[facility] - [facility] [address] [facility] [place] [address] [place] [address] Aliza Lion MD [address] [facility] [address] [place] [address] documented as of this encounter Visit Diagnoses Not on filedocumented in this encounter Care Teams Laundry Superintendent Relationship Specialty Start Date End Date Gadiel Majano MD 637 [facility] [address] [place] [address] PCP - General 02/25/07 documented as of this encounter
--- OUTSIDE RECORDS SUMMARY | 2024-05-11 15:00 | XMS_ITS | Encounter Summary ---
Author Organization [facility] Address [address] [place] [address] Care Team Providers Care Cake Stripper Name Role Phone Gadiel Majano MD Primary Care Provider [phone] Reason for Visit * Reason Onset Date Comments Letter for School/Work 01/30/2008 Encounter Details Date Type Department Care Team (Late st Contact Info) Description 01/30/2008 Telephone [facility] Internal Medicine [address] [address] Gadiel Majano MD [address] [place] [phone] Letter for School/Work Social History Tobacco Use Types Packs/Day Years Used Date Smoking Tobacco: Never Assessed Sex and Gender Information Value Date Recorded Sex Assigned at Not on file Gender Identity Not on file Sexual Orientation Not on file documented as of this encounter Miscellaneous Notes * Telephone Encounter - Gadiel Majano MD - 01/30/2008 1:42 PM CDT noted * Telephone Encounter - Nicol Bryson - 01/30/2008 1:07 PM CDT MOTHER SAID YOU'RE BEING A PAIN IN HER BUTT RE THE SCHOOL EXCUSE. (I HAD ALREADY TOLD HER PREVIOUSLY PT WOULD NEED AN APPT.) SHE'S JUST GOING TO HAVE HER DAUGHTER TAKE IT A NON EXCUSED DAY. DOESN'T WANT TO MAKE APPT. FYI * Telephone Encounter - Gadiel Majano MD - 01/30/2008 12:38 PM CDT Needs appt if needs letters * Telephone Encounter - Nicol Bryson - 01/30/2008 12:37 PM CDT PT NEEDS A LETTER FOR SCHOOL. OFF TODAY TO RETURN TOMORROW. FAX TO SCHOOL ATT ATTENDANCE OFFICE [phone]. documented in this encounter Plan of Treatment Upcoming Encounters Date Type Department Care Team (Late st Contact Info) Description 05/19/2024 9:00 AM ELECTRIC METER READER Appointment [facility] [address] [place] [address] [place] [phone] Gadiel Majano MD [address] [place] [phone] 06/05/2024 8:30 AM ELECTRIC METER READER Appointment [facility] [address] [place] [address] [place] [phone] Gadiel Majano MD [address] [place] [phone] 08/09/2024 4:00 PM CDT Office Visit [address] [phone] Jairo Matute PA [address] [place] [phone] 01/23/2025 3:20 PM CDT Office Visit [facility] [address] [facility] [address] [place] [phone] Gadiel Majano MD [address] [place] [address] [address] [place] [phone] 08/03/2025 8:30 AM CDT Office Visit [facility] NEUROLOGY - [facility] [address] [facility] [address] [place] [address] Aliza Lion MD [address] [facility] [address] [place] [address] documented as of this encounter Visit Diagnoses Not on filedocumented in this encounter Care Teams Cake Stripper Relationship Specialty Start Date End Date Gadiel Majano MD [address] [place] [address] [address] [place] [phone] PCP - General 02/25/07 documented as of this encounter
--- OUTSIDE RECORDS SUMMARY | 2024-05-11 15:00 | XMS_ITS | Encounter Summary ---
[facility] Organization [facility] Address [address] [place] [address] Care Team Providers Care Marina Manager Name Role Phone Gadiel Majano MD Primary Care Provider [phone] Reason for Visit * Reason Comments Urinary Pain Pt diagnosised with uti Pt has frequent UTI s Pt had temp earlier this week but not now Pt put on cipro and makes her sick Pt is nauseated So takes nausea meds she gets put to sleep and develops a kang Ate last nite in small amounts Pt here for IV antibiiotics and to be admitted Kidney areas hurt david to the r side * Auth/Cert - Closed Specialty Diagnoses / Procedures Referred By Josie t Referred To Contact [facility] Medical Surgical [address] [place] [address] Referral ID Status Reason Start Date Expiration Date Visits Re quested Visits Authorized [id number] Closed 04/06/2011 04/05/2012 1 Encounter Details Date Type Department Care Team (Late st Contact Info) Description 04/05/2011 11:58 AM BARREL LATHE OPERATOR OUTSIDE - 04/07/2011 3:30 PM BARREL LATHE OPERATOR OUTSIDE Emergency [facility] Medicine [address] [place] [address] Vicente Lal MD [address] [facility] [place] [address] Drake Norton MD [address] [place] [address] Patrice Zuniga MD NO ADDRESS ON FILE Nausea alone Discharge Disposition: Home or Self Care Social [...] Sign Reading Time Taken Comments Blood Pressure 100/64 04/07/2011 11:07 AM BARREL LATHE OPERATOR OUTSIDE Pulse 82 04/07/2011 11:07 AM BARREL LATHE OPERATOR OUTSIDE Temperature 36.5 ??C (97.7 ??F) 04/07/2011 11:[address] Respiratory Rate 22 04/07/2011 11:07 AM BARREL LATHE OPERATOR OUTSIDE Oxygen Saturation 98% 04/07/2011 11:07 AM BARREL LATHE OPERATOR OUTSIDE Inhaled Oxygen Concentration - - Weight 68 kg (150 lb) 04/05/2011 11:30 AM BARREL LATHE OPERATOR OUTSIDE Height 167.6 cm (5' 6 ) 04/05/2011 11:30 AM BARREL LATHE OPERATOR OUTSIDE Body Mass Index 24.21 04/05/2011 11:30 AM BARREL LATHE OPERATOR OUTSIDE documented in this encounter Discharge Summaries * Patrice Zuniga MD - 04/07/2011 8:23 AM CST [facility] Discharge Summary Patient : Trinh Corral : 1990 PCP: Gadiel Majano MD Date of Admit: 04/05/2011 Date of DC : 04/07/2011 The history and physical was dictated by Drake Norton MD and included a review of systems. Therefore will not be repeated here. Admitting Dx: UTI Discharge Diagnoses: Patient Active Problem List Diagnoses ??? Unspecified Backache ??? Hypoglycemia, Unspecified ??? UTI (urinary tract infection) ??? Nausea alone ??? Acute pyelonephritis ??? Dehydration Discharge medications and new prescriptions: Current Discharge Medication List START taking these medications Details fosfomycin tromethamine (MONUROL) 3 gram Oral Pack Take 3 Gram by mouth daily for 3 days. Qty: 9 Gram, Refills: 0 CONTINUE these medications which have NOT CHANGED Details ondansetron (ZOFRAN) 4 mg Oral Tab Take 4 mg by mouth every 8 hours as needed. NORETH A-ET ESTRA/FE FUMARATE (LO LOESTRIN FE ORAL) Take by mouth. STOP taking these medications ciprofloxacin (CIPRO) 500 mg Oral tablet Comments: Reason for Stopping: Consultantants: IP CONSULT TO INFECTIOUS DISEASES Dr Vega IP CONSULT TO UROLOGY Dr.De Jacobo Discharge Lab Data: Lab Results Component Value Date WBC 3.8* 04/07/2011 HEMATOCRIT 39.3 04/07/2011 HEMOGLOBIN 12.7 04/07/2011 PLATELETS 208 04/07/2011 SODIUM 141 04/07/2011 CHLORIDE 107 04/07/2011 POTASSIUM 4.0 04/07/2011 CO2 26 04/07/2011 BUN 6 04/07/2011 CREATININE 0.70 04/07/2011 GLUCOSE 96 04/07/2011 AST 26 04/05/2011 ALT 25 04/05/2011 CRP 2.4* 04/05/2011 No results found for this or any previous visit. No results found for this or any previous visit. All Operations & Procedures: US renal: Sagittal and transverse real-time examination reveals the right kidney to be 10.1 x 4.4 x 4.9 cm in size. The left kidney is 10.0 x 4.8 x 4.4 cm in size. There is normal echogenicity bilaterally. There is no evidence for mass, focal scarring or hydronephrosis on either side. No shadowing stones are seen. A survey of the urinary bladder was normal Labs Needing Follow Up: non Discharge Exam: BP 106/73 Pulse 80 Temp(Src) 97.8 ??F (36.6 ??C) (Oral) Resp 16 Ht 5' 6 (1.676 m) Wt 150lb (68.04 kg) BMI 24.21 kg/m2 SpO2 97% LMP 12/22/2010 Physical Exam: General appearance Alert, cooperative, no distress Head Normocephalic, without obvious abnormality, atraumatic Eyes Conjunctivae/corneas clear. PERRL, EOM's intact. Ears Normal external ear canals Nose Nares normal. Mucosa normal. No drainage or sinus tenderness. Throat Lips, mucosa, and tongue normal. Neck Supple, no adenopathy, no carotid bruit and no JVD Lungs Clear to auscultation bilaterally Heart Regular rate and rhythm, S1, S2 normal, no murmur, click, rub or gallop Abdomen Soft, non-tender. Bowel sounds normal. No masses, No organomegaly Neurologic AAO X3, Cranial nerves 2 thru 12 grossly normal, non-focal exam Extremities No cyanosis or edema, warm Skin No rashes or lesions Hospital Course: Trinh Corral 20 y.o. female admitted with UTI, she had H/O recurrent UTI, seen by urology andID, Urine culture was negative because she was pre-treated with Abx before admission, Send home on Fosfomycin oral, med because she is unable to tolerate other oral meds,. Discharge Condition: stable. Disposition: home. Patient instructions: Activity: activity as tolerated. Diet: General Wound Care: None needed. Follow-up: Gadiel Majano MD in 4 month(s). Code Status At time of Discharge: No Order More than 30 were spent in this discharge activity. Patrice Zuniga MD 04/07/2011 8:24 AM [phone] EL LATHE OPERATOR OUTSIDE documented in this encounter Medications at Time of Discharge Medication Sig Dispensed Refills Start Date End Date fosfomycin tromethamine (MONUROL) 3 gram Oral Pack Take 3 Gram by mouth every third day for 4 doses. 4 Packet 0 04/07/2011 04/17/2011 documented as of this encounter Progress Notes * Candido Vega MD - 04/07/2011 1:28 PM CST Infectious Diseases Progress Note Date of service: 04/07/2011,1:29 PM Admit Date: 04/05/2011 LOS: 2 days Current antibiotics/duration:Rocephin/Fosfomycin Subjective-24 hr events: Patient tolerated fosfomycin well, had minimal nausea with it. Reports flank pain is better after taking muscle relaxant. Minimal residual dysuria. Afebrile Objective: Patient Vitals for the past 24 hrs: BP Temp Temp src Pulse Resp SpO2 04/07/11 1107 100/64 mmHg 97.7 ??F (36.5 ??C) Oral 82 22 98 % 04/07/11 0800 110/74 mmHg 97.6 ??F (36.4 ??C) Oral 76 16 98 % 04/06/11 2201 106/73 mmHg 97.8 ??F (36.6 ??C) Oral 80 16 97 % 04/06/11 1521 112/82 mmHg 98.2 ??F (36.8 ??C) Oral 67 16 98 % Intake/Output Summary (Last 24 hours) at 04/07/11 1329 Last data filed at 04/07/11 1107 Gross per 24 hour Intake 3367 ml Output 2370 ml Net 997 ml Physical Exam: General Appearance: NAD Abdomen: soft, non tender, no CVA tenderness Results for orders placed during the hospital encounter of 04/05/11 (from the past 24 hour(s)) CBC WITH DIFFERENTIAL Component Value Range WBC 3.8 (*) 4.0 - 9.8 (K/uL) RBC 4.12 3.90 - 4.90 (M/uL) HEMOGLOBIN 12.7 11.8 - 14.8 (g/dL) HEMATOCRIT 39.3 35.5 - 44.0 (%) MCV 95.4 82.0 - 99.0 (fL) MCH 30.8 27.2 - 32.6 (pg) MCHC 32.3 31.5 - 35.5 (%) PLATELETS 208 140 - 350 (K/uL) MPV 11.5 9.3 - 12.4 (fL) RDW 12.7 11.5 - 14.5 (%) RDW-STDEV 43.9 37.1 - 48.7 (fL) NEUTROPHILS 30 (*) 45 - 70 (%) LYMPHOCYTES 44 16 - 45 (%) MONOCYTES 19 (*) 3 - 13 (%) EOSINOPHILS 6 0 - 7 (%) BASOPHILS 0 0 - 2 (%) NEUTROPHIL ABSOLUTE 1.15 (*) 1.90 - 7.00 (K/uL) LYMPHOCYTE ABSOLUTE 1.68 0.70 - 4.50 (K/uL) MONOCYTE ABSOLUTE 0.73 0.10 - 1.30 (K/uL) EOSINOPHIL ABSOLUTE 0.21 0.00 - 0.70 (K/uL) BASOPHILS ABSOLUTE 0.01 0.00 - 0.20 (K/uL) BASIC METABOLIC PANEL Component Value Range SODIUM 141 135 - 145 (mmol/L) POTASSIUM 4.0 3.5 - 4.9 (mmol/L) CHLORIDE 107 96 - 108 (mmol/L) CO2 26 22 - 30 (mmol/L) CALCIUM 9.2 8.6 - 10.2 (mg/dL) BUN 6 6 - 20 (mg/dL) CREATININE 0.70 0.51 - 0.95 (mg/dL) GLUCOSE 96 65 - 99 (mg/dL) GFR, >60 >=60 (mL/min/1.7 sq meter) GFR >60 >=60 (mL/min/1.7 sq meter) Assessment: Recurrent urinary tract infection with the current episode being caused by E coli that is resistantto ampicillin, tetracycline, and sulfa. She had associated flank pain and hematuria and fever whichraises suspicion about the possibility of pyelonephritis. The patient has GI intolerance to oral antibiotics including Keflex, Cipro, and Macrobid. This limits the choices for oral antibiotics that can be used in this patient. She tolerated oral fosfomycin Plan: If renal US is normal, it would be OK to discharge patient home on Fosfomycin 3 grams PO every 3 days (next dose due 04/09/11) through 04/20/11 Candido Vega MD [phone] EL LATHE OPERATOR OUTSIDE * Patrice Zuniga MD - 04/07/2011 12:00 PM CST Trinh Corral Waiting for ultrasound, will be DC if US is WNL EL LATHE OPERATOR OUTSIDE * Patrice Zuniga MD - 04/06/2011 8:18 AM CST [facility] Progress Note Admit Date: 04/05/2011 Date of Note: 04/06/2011, 8:18 AM PCP: Gadiel Majano MD LOS: 1 day Previous history of present illness, review of systems, medications, labs, studies, notes, orders and consults have been reviewed today. Subjective: Feeling better, Objective: BP 100/61 Pulse 79 Temp(Src) 98.1 ??F (36.7 ??C) (Oral) Resp 18 Ht 5' 6 (1.676 m) Wt 150lb (68.04 kg) BMI 24.21 kg/m2 SpO2 97% LMP 12/22/2010 Exam: General appearance alert, cooperative, no distress, appears stated age Lungs Bilateral air entry Heart regular rate and rhythm, S1, S2 normal, Abdomen soft, non-tender. Bowel sounds normal. No masses, No organomegaly Extremities extremities normal, atraumatic, no cyanosis or edema Pulses 2+ and symmetric Neuro Data Base: I Results for orders placed during the hospital encounter of 04/05/11 (from the past 24 hour(s)) COMPREHENSIVE METABOLIC PANEL Component Value Range SODIUM 137 135 - 145 (mmol/L) POTASSIUM 4.1 3.5 - 4.9 (mmol/L) CHLORIDE 102 96 - 108 (mmol/L) CO2 24 22 - 30 (mmol/L) CALCIUM 10.0 8.6 - 10.2 (mg/dL) BUN 12 6 - 20 (mg/dL) CREATININE 0.68 0.51 - 0.95 (mg/dL) GLUCOSE 83 65 - 99 (mg/dL) TOTAL PROTEIN 7.9 6.3 - 8.6 (g/dL) ALBUMIN 4.6 3.4 - 4.8 (g/dL) BILIRUBIN TOTAL 0.4 0.2 - 1.0 (mg/dL) ALKALINE PHOSPHATASE 75 35 - 104 (U/L) AST 26 12 - 32 (U/L) ALT 25 0 - 31 (U/L) GFR, >60 >=60 (mL/min/1.7 sq meter) GFR >60 >=60 (mL/min/1.7 sq meter) C-REACTIVE PROTEIN Component Value Range CRP 2.4 (*) 0.0 - 0.8 (mg/dL) CBC WITH DIFFERENTIAL Component Value Range WBC 5.8 4.0 - 9.8 (K/uL) RBC 4.59 3.90 - 4.90 (M/uL) HEMOGLOBIN 14.1 11.8 - 14.8 (g/dL) HEMATOCRIT 42.9 35.5 - 44.0 (%) MCV 93.5 82.0 - 99.0 (fL) MCH 30.7 27.2 - 32.6 (pg) MCHC 32.9 31.5 - 35.5 (%) PLATELETS 231 140 - 350 (K/uL) MPV 11.3 9.3 - 12.4 (fL) RDW 12.5 11.5 - 14.5 (%) RDW-STDEV 42.2 37.1 - 48.7 (fL) NEUTROPHILS 56 45 - 70 (%) LYMPHOCYTES 27 16 - 45 (%) MONOCYTES 14 (*) 3 - 13 (%) EOSINOPHILS 2 0 - 7 (%) BASOPHILS 0 0 - 2 (%) NEUTROPHIL ABSOLUTE 3.23 1.90 - 7.00 (K/uL) LYMPHOCYTE ABSOLUTE 1.58 0.70 - 4.50 (K/uL) MONOCYTE ABSOLUTE 0.83 0.10 - 1.30 (K/uL) EOSINOPHIL ABSOLUTE 0.11 0.00 - 0.70 (K/uL) BASOPHILS ABSOLUTE 0.01 0.00 - 0.20 (K/uL) HCG QUANTITATIVE, BLOOD Component Value Range HCG QUANT, BLOOD <5 0 - 5 (mIU/mL) URINALYSIS WITH REFLEX CULTURE Component Value Range URINE CULTURE ORDER Culture ordered URINALYSIS Component Value Range COLOR UA Yellow CLARITY UA Clear Clear SPECIFIC GRAVITY UA 1.016 1.001 - 1.035 PH UA 6.0 5.0 - 8.0 LEUKOCYTE ESTERASE UA Trace (*) Negative NITRITE UA Negative Negative PROTEIN UA Negative Negative GLUCOSE UA Negative Negative KETONES UA 2+ (*) Negative UROBILINOGEN UA <1 <=1 (mg/dL) BILIRUBIN UA Negative Negative BLOOD UA 1+ (*) Negative WBC UA 11 (*) 0 - 5 (/HPF) RBC UA 1 0 - 4 (/HPF) BACTERIA UA 1+ (*) None Seen (/HPF) EPITHELIAL CELLS, URINE 2-5 MRSA PCR RAPID SCREEN Component Value Range MRSA PCR RESULT Negative Negative MRSA PCR SOURCE Nares MRSA PCR INTEPRETATION See Comment BASIC METABOLIC PANEL Component Value Range SODIUM 140 135 - 145 (mmol/L) POTASSIUM 3.9 3.5 - 4.9 (mmol/L) CHLORIDE 107 96 - 108 (mmol/L) CO2 23 22 - 30 (mmol/L) CALCIUM 8.7 8.6 - 10.2 (mg/dL) BUN 8 6 - 20 (mg/dL) CREATININE 0.59 0.51 - 0.95 (mg/dL) GLUCOSE 93 65 - 99 (mg/dL) GFR, >60 >=60 (mL/min/1.7 sq meter) GFR >60 >=60 (mL/min/1.7 sq meter) CBC WITH DIFFERENTIAL Component Value Range WBC 4.3 4.0 - 9.8 (K/uL) RBC 4.00 3.90 - 4.90 (M/uL) HEMOGLOBIN 12.1 11.8 - 14.8 (g/dL) HEMATOCRIT 37.7 35.5 - 44.0 (%) MCV 94.3 82.0 - 99.0 (fL) MCH 30.3 27.2 - 32.6 (pg) MCHC 32.1 31.5 - 35.5 (%) PLATELETS 215 140 - 350 (K/uL) MPV 11.3 9.3 - 12.4 (fL) RDW 12.6 11.5 - 14.5 (%) RDW-STDEV 43.1 37.1 - 48.7 (fL) NEUTROPHILS 37 (*) 45 - 70 (%) LYMPHOCYTES 43 16 - 45 (%) MONOCYTES 16 (*) 3 - 13 (%) EOSINOPHILS 4 0 - 7 (%) BASOPHILS 1 0 - 2 (%) NEUTROPHIL ABSOLUTE 1.60 (*) 1.90 - 7.00 (K/uL) LYMPHOCYTE ABSOLUTE 1.83 0.70 - 4.50 (K/uL) MONOCYTE ABSOLUTE 0.67 0.10 - 1.30 (K/uL) EOSINOPHIL ABSOLUTE 0.18 0.00 - 0.70 (K/uL) BASOPHILS ABSOLUTE 0.02 0.00 - 0.20 (K/uL) Assessment/Plan: UTI: H/O UTI in the past, She has 11 WBC in urine, elevated CRP, unable to tolerate oral Abx because of nausea and vomiting, she is on IV rocephin , will continue that, pending urine cultures, will try Oral levaquin, if her nausea and vomiting is better, continue IV hydration, will get the ID consult for recurrent UTI, DVT Prophlaxis - Enoxaparin Current Diet General Vega catheter:non Lines:Peripheral Current Planned Disposition - home Plan discussed with patient; questions answered; patient agrees with current plan. Current Code Status -No Order More than 30 minutes were spent in the care of this patient today; this may include family conference, nursing conference and discussion with any consultants;. Patrice Zuniga MD [facility] Hospitalist [phone] EL LATHE OPERATOR OUTSIDE documented in this encounter H&P Notes * Drake Norton MD - 04/05/2011 4:42 PM CST [facility] Hospitalist H&P Patient Name: Trinh Corral Courtesy Copy to Primary Care Doctor: Gadiel Majano MD Date of Admission: 04/05/2011 Date of Service: 04/05/2011 Chief Complaint: Dysuria, frequency, urgency Fever & chills HPI: 20 YOF with hx of recurrent UTIs (sees Dr Reynolds of ) otherwise in good physical health admitted thru the Er for above mentioned complaints. Per pt for past few days she was having urinary urgency, frequency & dysuria. She also noticed some blood in urine. Had some fever & chills. She went to [facility] ER on 04/02/2011 7 had a urine culture done. Per pt not able to tolerate po Ke flex or Cipro due to nausea & vomiting. Denies any abdominal pain. Past Medical History: Past Medical History Diagnosis Date ??? UTI (urinary tract infection) Past Surgical History: Past Surgical History Procedure Date ??? Pt denies relevant surgical history Current Medications: No current facility-administered medications on file prior to encounter. No current outpatient prescriptions on file prior to encounter. Medication Allergies: Allergies Allergen Reactions ??? No Known Allergies Family History: Family History Problem Relation Age of Onset ??? Heart Disease Mother Social History: History Substance Use Topics ??? Smoking status: Current Some Day Smoker -- 1.0 packs/day for 2 years ??? Smokeless tobacco: Never Used Comment: one pack for a week ??? Alcohol Use: 0.5 oz/week 1 Cans of beer per week accas. Review of Systems General No fever, chills or weight loss ENT No sore throat, nasal discharge or earache Hematology No bruises or bleeding Endocrine No polyuria, polydipsia or polyphagia CV No chest pain Respiratory No cough or shortness of breath or wheezing GI No nausea, vomiting, diarrhea or abdominal pain + dysuria, urgency & frequency MS No swelling of any large joints Neuro No numbness, tingling or wkness Derm No rashes Eyes No photophobia or blurred vision Physical Exam: BP 103/69 Pulse 73 Temp(Src) 97.8 ??F (36.6 ??C) (Oral) Resp 16 Ht 5' 6 (1.676 m) Wt 150lb (68.04 kg) BMI 24.21 kg/m2 SpO2 99% LMP 12/22/2010 General appearance alert, cooperative, no distress, appears stated age Head Normocephalic, without obvious abnormality, atraumatic Eyes conjunctivae/corneas clear. PERRL, EOM's intact. Ears external ear canals AU Nose Nares normal. Septum midline. Mucosa normal. No drainage or sinus tenderness. Throat Lips, mucosa, and tongue normal. Neck supple, no JVD Lungs clear to auscultation bilaterally Heart regular rate and rhythm, S1, S2 normal Abdomen soft, non-tender. Bowel sounds normal Extremities extremities normal, atraumatic, no cyanosis or edema Pulses 2+ and symmetric Skin Skin color, texture, turgor normal. Neurologic Cranial nerves 2 thru 12 grossly normal, moves all extremities well Data Base: CBC: Recent Labs Basename 04/05/11 1214 WBC 5.8 HGB 14.1 HCT 42.9 PLT 231 MCV 93.5 BMP: Recent Labs Basename 04/05/11 1214 NA 137 K 4.1 CL 102 CO2 24 ANIONGAP -- CA 10.0 GLUCOSE 83 BUN 12 CREAT 0.68 OTHER LYTES:No results found for this basename: M,PO4:3 in the last 72 hours AccuCheks: No results found for this basename: GLUCPOC:4 in the last 72 hours LFTs: Recent Labs Basename 04/05/11 1214 ALKPHOS 75 TOTALPROTEIN 7.9 BILITOTAL 0.4 ALKPHOS 75 ALBUMIN 4.6 ALT 25 AST 26 Assessment/Plan: 1. UTI / Possible Pyelo : Urine culture from [facility] done on 04/02/2011 grew E Coli sensitive to Cefazolin, Cipro & Levaquin. Per pt not able to tolerate po Keflex or Cipro due to nausea & vomiting. UA here showed only 1 RBC. Hold off any imaging such as CT at this time. Will put edin IV Ceftriaxone. IV hydration. Trial of po Levaquin tomorrow. If tolerated then may be able to gohome on oral Levaquin with OP Urology follow up with Dr Santana. 2. Dehydration : IV fluids. Prn Zofran. DVT prophylaxis with Lovenox. More than 60 minutes were spent in the care of this patient today; this may include family conference, nursing conference and discussion with any consultants. Drake Norton MD [facility] Hospitalist Pager [phone] EL LATHE OPERATOR OUTSIDE documented in this encounter Consult Notes * Candido Vega MD - 04/06/2011 9:57 PM CST [place], [place] [address] Consultation CSN: [id number] DATE OF SERVICE: 04/06/2011 REASON FOR CONSULTATION Recurrent urinary tract infections. HISTORY This is a 20-year-old woman who was admitted to [facility] on 04/05/2011 for continued management of urinary tract infection. The patient has a history of recurrent UTIs since childhood. She had a urinary reflux as a child which apparently has resolved in her adult life, however, she has continued to have repeated urinary tract infections with longest interval between infections being at 2 months. She is being evaluated by Dr. Meng for any anatomical or functional problems with genitourinary tract that could be causing her frequent infections. Her most recent infections started a fewdays ago with fever, left flank pain, dysuria, and hematuria. She was started on Bactrim. However, she had no response and a urine culture was done that had E coli which was resistant to ampicillin, tetracycline, and sulfa and intermediate to Unasyn and cephalothin. Because of that the patient was prescribed ciprofloxacin. She took one dose of the Cipro, however, she developed nausea and vomitingand was admitted the day later. She was started on Rocephin in the hospital and she seems to be tole rating that antibiotic without any difficulty. REVIEW OF SYSTEMS The patient had a low grade fever on admission but this has resolved. She denies any rhinorrhea, sore throat, coughing, or shortness of breath. She has very minimal nausea at this time. She has no abdominal pain or diarrhea. She still has mild dysuria. The hematuria has resolved. She denies any extremity edema or skin rash. PAST MEDICAL HISTORY Remarkable for recurrent UTI. SOCIAL HISTORY The patient smokes and drinks alcohol. FAMILY HISTORY Noncontributory. ALLERGIES None. MEDICATIONS Reviewed. PHYSICAL EXAMINATION VITAL SIGNS: Weight is 68 kg, temperature 98.1, pulse 79, blood pressure 100/61, respiratory rate 18, O2 sats 97% on room air. GENERAL APPEARANCE: The patient is pleasant, awake, alert in no distress. HEENT: The oral mucosa is clear. There is no cervical adenopathy. HEART: Normal S1, S2. No murmurs or gallops. LUNGS: Clear. ABDOMEN: Soft. There is mild tenderness to palpation of both flanks. EXTREMITIES: Well-perfused. There is no clubbing or cyanosis. SKIN: No rash. DATA White count is 4.3, creatinine 0.59. CRP 2.4. Urinalysis was unremarkable and urine culture was negative. A CT scan done in November 2010 was unremarkable. IMPRESSION Recurrent urinary tract infection with the current episode being caused by E coli that is resistantto ampicillin, tetracycline, and sulfa. She had associated flank pain and hematuria and fever whichraises suspicion about the possibility of pyelonephritis. The patient has GI intolerance to oral antibiotics including Keflex, Cipro, and Macrobid. This limits the choices for oral antibiotics that can be used in this patient. RECOMMENDATIONS 1. An ultrasound of the kidneys has been ordered, so we will follow up on that. 2. Continue Rocephin for the time being. 3. We will give the patient one dose of fosfomycin and if this is well tolerated, it could be continued as an outpatient to finish a course of 14 days. 4. Further urologic evaluation by Dr. Meng. Thank you for the consultation. DERIC:MED[facility]line DID: [id number] Dictated by: Candido Vega MD EL LATHE OPERATOR OUTSIDE * Candido Vega MD - 04/06/2011 5:30 PM CSTAssociated Order(s): IP CONSULT TO INFECTIOUS DISEASES Infectious Diseases Consultation Note Date of service: 04/06/2011,5:30 PM Patient seen Orders written Full note to follow Thank you for the courtesy of this consult. Candido Vega MD [phone] EL LATHE OPERATOR OUTSIDE * Kannan Meng MD - 04/06/2011 2:13 PM CSTAssociated Order(s): IP CONSULT TO UROLOGY Subjective: Trinh Corral is a 20 y.o. female with h/o utis and vesicoureteral reflux . She was told that she had an atrophic left kidney on Ct a year ago. She had a [facility] and per her outside records, she had no reflux. Keflex and macrobid have both caused her to have nausea. Urine cultures in the past were negative. Recently she had pain. She was started on Bactrim empirically but urine culture at [place] grew out e.coli resistant to bactrim .and ampicillin. She was switched to Cipro and zofran for nausea, but it did not help. She therefore was instructed to go to the ER, for IVF and iv antibiotics. She was admitted. Her nausea is better. She is tolerating ceftriaxone. She has some right sided back pain now. Patient Active Problem List Diagnoses Date Noted ??? UTI (urinary tract infection) 04/05/2011 ??? Nausea alone 04/05/2011 ??? Acute pyelonephritis 04/05/2011 ??? Dehydration 04/05/2011 ??? Hypoglycemia, Unspecified 04/18/2007 ??? Unspecified Backache 03/28/2007 Past Medical History Diagnosis Date ??? UTI (urinary tract infection) Past Surgical History Procedure Date ??? Pt denies relevant surgical history Prescriptions prior to admission Medication Sig Dispense Refill ??? ciprofloxacin (CIPRO) 500 mg Oral tablet Take 500 mg by mouth 2 times daily. ??? ondansetron (ZOFRAN) 4 mg Oral Tab Take 4 mg by mouth every 8 hours as needed. ??? NORETH A-ET ESTRA/FE FUMARATE (LO LOESTRIN FE ORAL) Take by mouth. Allergies Allergen Reactions ??? No Known Allergies History Substance Use Topics ??? Smoking status: Current Some Day Smoker -- 1.0 packs/day for 2 years ??? Smokeless tobacco: Never Used Comment: one pack for a week ??? Alcohol Use: 0.5 oz/week 1 Cans of beer per week accas. Family History Problem Relation Age of Onset ??? Heart Disease Mother Review of Systems Cardiovascular: negative for chest pain. Constitutional: negative for fevers. Gastrointestinal: negative for nausea. Respiratory: negative for shortness of breath. Objective: Patient Vitals for the past 8 hrs: BP Temp Temp src Pulse Resp SpO2 04/06/11 0810 100/61 mmHg 98.1 ??F (36.7 ??C) Oral 79 18 97 % Intake/Output Summary (Last 24 hours) at 04/06/11 1413 Last data filed at 04/06/11 1412 Gross per 24 hour Intake 5221.92 ml Output 2420 ml Net 2801.92 ml General appearance: alert, in no distress Back: symmetric, No CVA tenderness Lungs: clear to auscultation bilaterally, normal respiratory effort Heart: normal rate and regular rhythm Abdomen: Soft, non-tender. No masses, no organomegaly. Back: mild right cva discomfort. Data Review: CBC: Lab Results Component Value Date WBC 4.3 04/06/2011 RBC 4.00 04/06/2011 HEMOGLOBIN 12.1 04/06/2011 HEMATOCRIT 37.7 04/06/2011 PLATELETS 215 04/06/2011 BMP: Lab Results Component Value Date GLUCOSE 93 04/06/2011 SODIUM 140 04/06/2011 POTASSIUM 3.9 04/06/2011 CHLORIDE 107 04/06/2011 CO2 23 04/06/2011 BUN 8 04/06/2011 CREATININE 0.59 04/06/2011 CALCIUM 8.7 04/06/2011 ua 11 wbc, 1 rbc Assessment: Active Problems: UTI (urinary tract infection) Nausea alone Acute pyelonephritis Dehydration UTI: unfortunately she is unable to orally tolerate any cipro, keflex, or macrobid. Plan: Continue ceftriaxone, agree with trial of levaquin and ID consult. Will check renal u/s to assess her kidneys for obstruction and her h/o atrophic left kidney EL LATHE OPERATOR OUTSIDE documented in this encounter ED Notes * Stl Kirby Johnson - 04/09/2011 5:49 PM CST EL LATHE OPERATOR OUTSIDE * Jairo Riddle RN - 04/05/2011 1:35 PM CST Pt now kang free. EL LATHE OPERATOR OUTSIDE * Vicente Lal MD - 04/05/2011 1:23 PM CST HISTORY OF PRESENT ILLNESS Trinh Corral, a 20 y.o. female presents to the ED with a Chief Complaint of Urinary Pain HPI Comments: Patient presents to the emergency department with complaints of nausea - she gets frequent UTI's and started having one last week. She was seen at [facility] and was given zofran and cipro - She is extremely nauseated and has a headache and she is now having some pains in her flank areas. Culture sent is available and she states that all of the oral ones make me sick - here for IV abx. Patient is a 20 y.o. female presenting with urinary pain. The history is provided by the patient. Urinary Pain This is a new problem. The current episode started more than 2 days ago. The problem occurs constantly. The problem has been gradually worsening. The quality of the pain is described as burning. There has been no fever. Associated symptoms include chills, sweats, nausea, frequency, hesitancy, urgency and flank pain. Pertinent negatives include no vomiting, no discharge, no hematuria and no possible . REVIEW OF SYSTEMS Review of Systems Constitutional: Positive for chills. Negative for fever, diaphoresis and fatigue. HENT: Negative for ear pain, sore throat, trouble swallowing, neck pain and sinus pressure. Eyes: Negative for pain. Respiratory: Negative for cough, chest tightness, shortness of breath, wheezing and stridor. Cardiovascular: Negative for chest pain, palpitations and leg swelling. Gastrointestinal: Positive for nausea. Negative for vomiting, abdominal pain, diarrhea, constipation and blood in stool. Genitourinary: Positive for hesitancy, urgency, frequency and flank pain. Negative for dysuria and hematuria. Musculoskeletal: Negative for back pain and joint swelling. Skin: Negative for pallor and rash. Neurological: Negative for dizziness, seizures, syncope, speech difficulty, weakness, light-headedness, numbness and headaches. Psychiatric/Behavioral: Negative for confusion and sleep disturbance. The patient is not nervous/anxious. PAST MEDICAL HISTORY REVIEWED Past Medical History Diagnosis Date ??? Arthritis ??? UTI (urinary tract infection) Past Surgical History Procedure Date ??? Pt denies relevant surgical history Family History Problem Relation Age of Onset ??? Heart Disease Mother History Social History Main Topics ??? Smoking status: Never Smoker ??? Smokeless tobacco: Never Used ??? Alcohol Use: No ??? Drug Use: Not on file ??? Sexually Active: Not on file ALLERGIES No known allergies HOME MEDICATIONS Patient's Home Medications New Prescriptions for this Encounter Current Home Medications CIPROFLOXACIN (CIPRO) 500 MG ORAL TABLET Take 500 mg by mouth 2 times daily. NORETH A-ET ESTRA/FE FUMARATE (LO LOESTRIN FE ORAL) Take by mouth. ONDANSETRON (ZOFRAN) 4 MG ORAL TAB Take 4 mg by mouth every 8 hours as needed. Medications Modified during this Encounter Medications Discontinued during this Encounter PHYSICAL EXAM Initial Vitals BP 04/05/11 1130 117/77 mmHg Pulse 04/05/11 1130 87 Resp 04/05/11 1130 16 Temp 04/05/11 1130 98.2 ??F (36.8 ??C) Temp src 04/05/11 1130 Oral SpO2 04/05/11 1130 96 % Physical Exam Nursing note and vitals reviewed. Constitutional: She is oriented to person, place, and time. She appears well- developed and well-nourished. No distress. HENT: Head: Normocephalic. Mouth/Throat: Oropharynx is clear and moist. No oropharyngeal exudate. Eyes: Conjunctivae and EOM are normal. Pupils are equal, round, and reactive to light. Right eye exhibits no discharge. Left eye exhibits no discharge. No scleral icterus. Neck: Normal range of motion. Neck supple. No tracheal deviation present. No thyromegaly present. Cardiovascular: Normal rate, normal heart sounds and intact distal pulses. Pulmonary/Chest: Effort normal and breath sounds normal. No respiratory distress. Abdominal: Soft. Bowel sounds are normal. She exhibits no distension. No tenderness. She has no rebound. Musculoskeletal: Normal range of motion. She exhibits no edema and no tenderness. Neurological: She is alert and oriented to person, place, and time. No cranial nerve deficit. Coordination normal. Skin: Skin is warm and dry. No rash noted. She is not diaphoretic. No erythema. Psychiatric: She has a normal mood and affect. Her behavior is normal. Judgment and thought contentnormal. MDM Coding Reviewed: nursing note and vitals Reviewed previous: labs Interpretation: labs Consults: admitting physician DIAGNOSTICS LAB: Results for orders placed during the hospital encounter of 04/05/11 (from the past 24 hour(s)) COMPREHENSIVE METABOLIC PANEL Component Value Range SODIUM 137 135 - 145 (mmol/L) POTASSIUM 4.1 3.5 - 4.9 (mmol/L) CHLORIDE 102 96 - 108 (mmol/L) CO2 24 22 - 30 (mmol/L) CALCIUM 10.0 8.6 - 10.2 (mg/dL) BUN 12 6 - 20 (mg/dL) CREATININE 0.68 0.51 - 0.95 (mg/dL) GLUCOSE 83 65 - 99 (mg/dL) TOTAL PROTEIN 7.9 6.3 - 8.6 (g/dL) ALBUMIN 4.6 3.4 - 4.8 (g/dL) BILIRUBIN TOTAL 0.4 0.2 - 1.0 (mg/dL) ALKALINE PHOSPHATASE 75 35 - 104 (U/L) AST 26 12 - 32 (U/L) ALT 25 0 - 31 (U/L) GFR, >60 >=60 (mL/min/1.7 sq meter) GFR >60 >=60 (mL/min/1.7 sq meter) C-REACTIVE PROTEIN Component Value Range CRP 2.4 (*) 0.0 - 0.8 (mg/dL) CBC WITH DIFFERENTIAL Component Value Range WBC 5.8 4.0 - 9.8 (K/uL) RBC 4.59 3.90 - 4.90 (M/uL) HEMOGLOBIN 14.1 11.8 - 14.8 (g/dL) HEMATOCRIT 42.9 35.5 - 44.0 (%) MCV 93.5 82.0 - 99.0 (fL) MCH 30.7 27.2 - 32.6 (pg) MCHC 32.9 31.5 - 35.5 (%) PLATELETS 231 140 - 350 (K/uL) MPV 11.3 9.3 - 12.4 (fL) RDW 12.5 11.5 - 14.5 (%) RDW-STDEV 42.2 37.1 - 48.7 (fL) NEUTROPHILS 56 45 - 70 (%) LYMPHOCYTES 27 16 - 45 (%) MONOCYTES 14 (*) 3 - 13 (%) EOSINOPHILS 2 0 - 7 (%) BASOPHILS 0 0 - 2 (%) NEUTROPHIL ABSOLUTE 3.23 1.90 - 7.00 (K/uL) LYMPHOCYTE ABSOLUTE 1.58 0.70 - 4.50 (K/uL) MONOCYTE ABSOLUTE 0.83 0.10 - 1.30 (K/uL) EOSINOPHIL ABSOLUTE 0.11 0.00 - 0.70 (K/uL) BASOPHILS ABSOLUTE 0.01 0.00 - 0.20 (K/uL) HCG QUANTITATIVE, BLOOD Component Value Range HCG QUANT, BLOOD <5 0 - 5 (mIU/mL) RADIOLOGY: EKG: PROCEDURES Procedures MEDICAL DECISION MAKING AND PLAN OF CARE Last vitals BP 117/77 Pulse 87 Temp(Src) 98.2 ??F (36.8 ??C) (Oral) Resp 16 Ht 5' 6 (1.676m) Wt 68.04 kg BMI 24.21 kg/m2 SpO2 96% LMP 12/22/2010 CLINICAL IMPRESSION Encounter Diagnoses Name Primary? UTI (urinary tract infection) ??? Nausea alone CASE DISCUSSED PATIENT COUNSELING Diagnostics reviewed and questions answered. Diagnosis, treatment options and plan of care discussed with understanding verbalized. DISPOSITION, EDUCATION AND MEDICATION RECONCILIATION Medications reconciled. See after visit summary for patient education on discharged patients. EL LATHE OPERATOR OUTSIDE * Jairo Riddle RN - 04/05/2011 1:[address] Norton at bedside for evaluation, pt resting quietly, nausea subsided, headache diminished. EL LATHE OPERATOR OUTSIDE * Jairo Riddle RN - 04/05/2011 12:50 PM CST Pt here c/o frequent UTI's sent here by urologist for admission, currently in abx w/ no improvement, recent abx change pt unable to tolerate new abx, c/o nausea, and R flank pain also mild diffuse headache, neg neuro focal exam. EL LATHE OPERATOR OUTSIDE documented in this encounter Miscellaneous Notes * Scanned Form - Stl Scanning, [facility] - 04/09/2011 5:49 PM CST Electronically signed by Interface, [facility] Stl Commercial Real Estate Agent Incoming at 04/09/2011 5:49 PM BARREL LATHE OPERATOR OUTSIDE * Patient Instructions - Stl Scanning, [facility] - 04/09/2011 5:49 PM CST EL LATHE OPERATOR OUTSIDE * Care Plan - Rossana Copeland RN - 04/07/2011 4:56 AM CST Problem: General Plan of Care (Adult, Obstetrics) Goal: Individualization/Patient-Specific Goal (Adult, Obstetrics) The patient and/or their outside sales representative will achieve their patient-specific goals related to the plan of care. The patient-specific goals include: resolved Symptoms Uti,patient tolerate antibiotic,free pain and free nausea. Patient complains of frequent unproductive cough. Felicitas on-call notified. New order received for robitussin. EL LATHE OPERATOR OUTSIDE * Care Plan - Rebecca Duke RN - 04/06/2011 6:50 PM CST Problem: General Plan of Care (Adult, Obstetrics) Goal: Individualization/Patient-Specific Goal (Adult, Obstetrics) The patient and/or their outside sales representative will achieve their patient-specific goals related to the plan of care. The patient-specific goals include: resolved Symptoms Uti,patient tolerate antibiotic,free pain and free nausea. Outcome: Progressing Pt complained of 6/10 back pain, requesting muscle relaxer. Dr. Zuniga notified and new order received for prn Flexeril. Pt verbalized relief. Goal: Plan of Care Review (Adult, Obstetrics) The patient and/or their outside sales representative will communicate an understanding of their plan of care. Outcome: Progressing Pt and mother informed that Renal US is ordered for tomorrow. Education on new medication Fosfomycin given to pt. Pt and mother agree with current plan. EL LATHE OPERATOR OUTSIDE * Care Plan - Isiah Mcdaniels - 04/06/2011 10:29 AM CST Problem: Spiritual Distress, Risk/Actual (Adult) Intervention: Assist with Spiritual Activities Initial visit: From [employer]. 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 Spent 6 weeks with a family in [facility]. EL LATHE OPERATOR OUTSIDE * Care Plan - Georgina Portillo RN - 04/06/2011 9:42 AM CST Problem: Infection, Risk/Actual (Adult) Goal: Infection, Risk/Actual: Infection Prevention/Resolution/Control Patient will demonstrate the desired outcomes. Outcome: Progressing No fever,patient c/o burning w/ urination,urine cloudy. EL LATHE OPERATOR OUTSIDE * Care Plan - Georgina Portillo RN - 04/06/2011 9:41 AM CST Problem: General Plan of Care (Adult, Obstetrics) Goal: Plan of Care Review (Adult, Obstetrics) The patient and/or their outside sales representative will communicate an understanding of their plan of care. Outcome: Progressing Patient had a breakfast,denied n/v.encourage patient po fluid Intake , EL LATHE OPERATOR OUTSIDE * Care Plan - Rossana Sousa RN - 04/06/2011 5:12 AM CST Problem: Infection, Risk/Actual (Adult) Goal: Infection, Risk/Actual: Infection Prevention/Resolution/Control Patient will demonstrate the desired outcomes. Outcome: Progressing Pt afebrile throughout night. Next dose of rocphine due at noon 11/14. Pt denied pain throughout night. Denies needs. Will monitor EL LATHE OPERATOR OUTSIDE * Care Plan - Georgina Portillo RN - 04/05/2011 5:01 PM CST Problem: Infection, Risk/Actual (Adult) Goal: Infection, Risk/Actual: Infection Prevention/Resolution/Control Patient will demonstrate the desired outcomes. Outcome: Progressing No fever ,vss,denied n/v,denied pain EL LATHE OPERATOR OUTSIDE documented in this encounter Plan of Treatment Upcoming Encounters Date Type Department Care Team (Late st Contact Info) Description 05/19/2024 9:00 AM BARREL LATHE OPERATOR OUTSIDE Appointment [facility] [address] [place] [address] [place] [address] Gadiel Majano MD [address] [place], [place] [phone] 06/05/2024 8:30 AM BARREL LATHE OPERATOR OUTSIDE Appointment [facility] [address] [place] [phone] Gadiel Majano MD [address] [place], [place] [phone] 08/09/2024 4:00 PM CDT Office Visit [place] [phone] Jairo Matute PA [address] [place] [phone] 01/23/2025 3:20 PM CDT Office Visit [address] [phone] Gadiel Majano MD [address] [place] [address] [place] [phone] 08/03/2025 8:30 AM CDT Office Visit [facility] - [place] [id number] [facility] [address] [place] [address] Aliza Lion MD [address] [facility] [address] [place] [address] documented as of this encounter Procedures Procedure Name Priority Date/Time Associated Diagnosis Comments US RENAL AND BLADDER Routine 04/07/2011 2:05 PM BARREL LATHE OPERATOR OUTSIDE CBC WITH DIFFERENTIAL Routine 04/07/2011 5:53 AM BARREL LATHE OPERATOR OUTSIDE BASIC METABOLIC PANEL Routine 04/07/2011 5:53 AM BARREL LATHE OPERATOR OUTSIDE IP CONSULT TO INFECTIOUS DISEASES Routine 04/06/2011 5:30 PM BARREL LATHE OPERATOR OUTSIDE IP CONSULT TO UROLOGY Routine 04/06/2011 2:21 PM BARREL LATHE OPERATOR OUTSIDE CBC WITH DIFFERENTIAL Routine 04/06/2011 7:24 AM BARREL LATHE OPERATOR OUTSIDE BASIC METABOLIC PANEL Routine 04/06/2011 7:24 AM BARREL LATHE OPERATOR OUTSIDE MRSA PCR RAPID SCREEN Stat 04/05/2011 1:42 PM BARREL LATHE OPERATOR OUTSIDE URINALYSIS WITH REFLEX CULTURE Stat 04/05/2011 1:06 PM BARREL LATHE OPERATOR OUTSIDE URINALYSIS W/REFLEX MICROSCOPIC Stat 04/05/2011 1:06 PM BARREL LATHE OPERATOR OUTSIDE URINE CULTURE Stat 04/05/2011 1:06 PM BARREL LATHE OPERATOR OUTSIDE CBC WITH DIFFERENTIAL Stat 04/05/2011 12:14 PM BARREL LATHE OPERATOR OUTSIDE C-REACTIVE PROTEIN Stat 04/05/2011 12 :14 PM BARREL LATHE OPERATOR OUTSIDE HCG QUANTITATIVE, BLOOD Add on 04/05/2011 12:14 PM BARREL LATHE OPERATOR OUTSIDE COMPREHENSIVE METABOLIC PANEL Stat 04/05/2011 12:14 PM BARREL LATHE OPERATOR OUTSIDE documented in this encounter Results * US RENAL AND BLADDER (04/07/2011 2:05 PM BARREL LATHE OPERATOR OUTSIDE) Anatomical Region Laterality Modality Abdomen Ultrasound 04/07/2011 1:52 PM BARREL LATHE OPERATOR OUTSIDE Impressions 04/07/2011 2:34 PM BARREL LATHE OPERATOR OUTSIDE IMPRESSION: Negative examination. Narrative 04/07/2011 2:34 PM BARREL LATHE OPERATOR OUTSIDE Ultrasound retroperitoneum, 04/07/2011. CLINICAL HISTORY: Recurrent urinary [...] Negative examination. Kannan Willams MD US ORDERABLES * BASIC METABOLIC PANEL (04/07/2011 5:53 AM BARREL LATHE OPERATOR OUTSIDE) SODIUM 141 135 - 145 mmol/L [facility] [place] POTASSIUM 4.0 3.5 - 4.9 mmol/L [facility] [place] CHLORIDE 107 96 - 108 mmol/L [facility] [place] CO2 26 22 - 30 mmol/L [facility] - . [facility] CALCIUM 9.2 8.6 - 10.2 mg/dL [facility] BUN 6 6 - 20 mg/dL [facility] CREATININE 0.70 0.51 - 0.95 mg/dL [facility] GLUCOSE 96 65 - 99 mg/dL [facility] GFR, >60 >=60 mL/min/1. 7 sq meter [facility] GFR >60 >=60 mL/min/1. 7 sq meter [facility] Comment: GFR is calculated using the IDMS-Traceable Modification of Diet in Renal Disease (MDRD) Study formula and is only valid for patients 18 years or older. Further interpretative information is available in the Laboratory Services Policy Manual on the [facility] Intranet at: [email or web address] vegasConvozinememorial [facility]/ Blood specimen (specimen) 04/07/2011 5:53 AM BARREL LATHE OPERATOR OUTSIDE 04/07/2011 6:08 AM BARREL LATHE OPERATOR OUTSIDE Patrice Zuniga MD CHEMISTRY ORDERABLES [facility]# [id number] [facility] [place] [place] [id number] * (ABNORMAL) CBC WITH DIFFERENTIAL (04/07/2011 5:53 AM BARREL LATHE OPERATOR OUTSIDE) WBC 3.8(L) 4.0 - 9.8 K/uL [facility] RBC 4.12 3.90 - 4.90 M/uL [facility] HEMOGLOBIN 12.7 11.8 - 14.8 g/dL [facility] HEMATOCRIT 39.3 35.5 - 44.0 % [facility] MCV 95.4 82.0 - 99.0 fL [facility] MCH 30.8 27.2 - 32.6 pg [facility] MCHC 32.3 31.5 - 35.5 % [facility] PLATELETS 208 140 - 350 K/uL [facility] MPV 11.5 9.3 - 12.4 [facility] RDW 12.7 11.5 - 14.5 % [facility] RDW-STDEV 43.9 37.1 - 48.7 [facility] NEUTROPHILS 30(L) 45 - 70 % [facility] - . [facility] LYMPHOCYTES 44 16 - 45 % [facility] MONOCYTES 19(H) 3 - 13 % [facility] EOSINOPHILS 6 0 - 7 % [facility] [place] BASOPHILS 0 0 - 2 % [facility] NEUTROPHIL ABSOLUTE 1.15(L) 1.90 - 7.00 K/uL [facility] LYMPHOCYTE ABSOLUTE 1.68 0.70 - 4.50 K/uL [facility] - . [facility] MONOCYTE ABSOLUTE 0.73 0.10 - 1.30 K/uL [facility] EOSINOPHIL ABSOLUTE 0.21 0.00 - 0.70 K/uL [facility] . [facility] BASOPHILS ABSOLUTE 0.01 0.00 - 0.20 K/uL [facility] Blood specimen (specimen) 04/07/2011 5:53 AM BARREL LATHE OPERATOR OUTSIDE 04/07/2011 6:08 AM BARREL LATHE OPERATOR OUTSIDE Patrice Zuniga MD HEMATOLOGY ORDERABLE S [facility]# [id number] [address] [facility] [place] [address] * IP CONSULT TO INFECTIOUS DISEASES (04/06/2011 5:30 PM BARREL LATHE OPERATOR OUTSIDE) Narrative Candido Vega MD - 04/06/2011 5:30 PM BARREL LATHE OPERATOR OUTSIDE Candido Vega MD ? 04/06/2011 ??5:30 PM Infectious Diseases Consultation Note Date of service: 04/06/2011,5:30 PM Patient seen Orders written Full note to follow Thank you for the courtesy of this consult. Candido Vega MD [phone] Procedure Note Candido Vega MD - 04/06/2011 5:30 PM CST Infectious Diseases Consultation Note Date of service: 04/06/2011,5:30 PM Patient seen Orders written Full note to follow Thank you for the courtesy of this consult. Candido Vega MD [phone] Patrice Zuniga MD INPATIENT CONSULT OR DERABLES * IP CONSULT TO UROLOGY (04/06/2011 2:21 PM BARREL LATHE OPERATOR OUTSIDE) Narrative YusraKannan Jacobo MD - 04/06/2011 2:21 PM BARREL LATHE OPERATOR OUTSIDE YusraKannan Jacobo MD ? 04/06/2011 ??2:21 PM Subjective: Trinh Corral is a 20 y.o. female with h/o utis and vesicoureteral reflux . ??She was told that she had an atrophic left kidney on Ct a year ago. ??She had a VCUG and per her outside records, she had no reflux. ??Keflex and macrobid have both caused her to have nausea. Urine cultures in the past were negative. Recently she had pain. She was started on Bactrim empirically but urine culture at [place] grew out e.coli resistant to bactrim .and ampicillin. She was switched to Cipro and zofran for nausea, but it did not help. ??She therefore was instructed to go to the ER, for IVF and iv antibiotics. She was admitted. ??Her nausea is better. ??She is tolerating ceftriaxone. ??She has some right sided back pain now. Patient Active Problem List Diagnoses Date Noted ? ? UTI (urinary tract infection) 04/05/2011 ? ? Nausea alone 04/05/2011 ? ? Acute pyelonephritis 04/05/2011 ? ? Dehydration 04/05/2011 ? ? Hypoglycemia, Unspecified 04/18/2007 ? ? Unspecified Backache 03/28/2007 Past Medical History Diagnosis Date ? ? UTI (urinary tract infection) ?? Past Surgical History Procedure Date ? ? Pt denies relevant surgical history ?? Prescriptions prior to admission Medication Sig Dispense Refill ? ? ciprofloxacin (CIPRO) 500 mg Oral tablet Take 500 mg by mouth 2 times daily. ? ondansetron (ZOFRAN) 4 mg Oral Tab Take 4 mg by mouth every 8 hours as needed. ? NORETH A-ET ESTRA/FE FUMARATE (LO LOESTRIN FE ORAL) Take ??by mouth. ? Allergies Allergen Reactions ? ? No Known Allergies ?? History Substance Use Topics ? ? Smoking status: Current Some Day Smoker -- 1.0 packs/day for 2 years ? ? Smokeless tobacco: Never Used Comment: one pack for a week ? ? Alcohol Use: 0.5 oz/week ??1 Cans of beer per week ?accas. Family History Problem Relation Age of Onset ? ? Heart Disease Mother ?? Review of Systems Cardiovascular: negative for chest pain. Constitutional: negative for fevers. Gastrointestinal: negative for nausea. Respiratory: negative for shortness of breath. Objective: Patient Vitals for the past 8 hrs: BP Temp Temp src Pulse Resp SpO2 04/06/11 0810 100/61 mmHg 98.1 ??F (36.7 ??C) Oral 79 ??18 ??97 % Intake/Output Summary (Last 24 hours) at 04/06/11 1413 Last data filed at 04/06/11 1412 Gross per 24 hour Intake 5221.92 ml Output ?? 2420 ml Net 2801.92 ml General appearance: alert, in no distress Back: symmetric, ??No CVA tenderness Lungs: clear to auscultation bilaterally, normal respiratory effort Heart: normal rate and regular rhythm Abdomen: Soft, non-tender. No masses, ??no organomegaly. Back: mild right cva discomfort. Data Review: CBC: Lab Results Component Value Date WBC 4.3 04/06/2011 RBC 4.00 04/06/2011 HEMOGLOBIN 12.1 04/06/2011 HEMATOCRIT 37.7 04/06/2011 PLATELETS 215 04/06/2011 BMP: Lab Results Component Value Date GLUCOSE 93 04/06/2011 SODIUM 140 04/06/2011 POTASSIUM 3.9 04/06/2011 CHLORIDE 107 04/06/2011 CO2 23 04/06/2011 BUN 8 04/06/2011 CREATININE 0.59 04/06/2011 CALCIUM 8.7 04/06/2011 ua 11 wbc, 1 rbc Assessment: Active Problems: UTI (urinary tract infection) Nausea alone Acute pyelonephritis Dehydration UTI: unfortunately she is unable to orally tolerate any cipro, keflex, or macrobid. Plan: Continue ceftriaxone, agree with trial of levaquin and ID consult. Will check renal u/s to assess her kidneys for obstruction and her h/o atrophic left kidney Procedure Note Kannan Meng MD - 04/06/2011 2:13 PM CST Subjective: Trinh Corral is a 20 y.o. female with h/o utis and vesicoureteralreflux . She was told that she had an atrophic left kidney on Ct a yearago. She had a VCUG and per her outside records, she had no reflux.Keflex and macrobid have both caused her to have nausea. Urine cultures inthe past were negative. Recently she had pain. She was started on Bactrim empirically but [place]culture at [place] grew out e.coli resistant to bactrim .and ampicillin. Shewas switched to Cipro and zofran for nausea, but it did not help. Shetherefore was instructed to go to the ER, for IVF and iv antibiotics. Shewas admitted. Her nausea is better. She is tolerating ceftriaxone. Shehas some right sided back pain now. Patient Active Problem List Diagnoses Date Noted ? ? UTI (urinary tract infection) 04/05/2011 ? ? Nausea alone 04/05/2011 ? ? Acute pyelonephritis 04/05/2011 ? ? Dehydration 04/05/2011 ? ? Hypoglycemia, Unspecified 04/18/2007 ? ? Unspecified Backache 03/28/2007 Past Medical History Diagnosis Date ? ? UTI (urinary tract infection) Past Surgical History Procedure Date ? ? Pt denies relevant surgical history Prescriptions prior to admission Medication Sig Dispense Refill ? ? ciprofloxacin (CIPRO) 500 mg Oral tablet Take 500 mg by mouth 2 timesdaily. ? ? ondansetron (ZOFRAN) 4 mg Oral Tab Take 4 mg by mouth every 8 hours asneeded. ? ? NORETH A-ET ESTRA/FE FUMARATE (LO LOESTRIN FE ORAL) Take by mouth. Allergies Allergen Reactions ? ? No Known Allergies History Substance Use Topics ? ? Smoking status: Current Some Day Smoker -- 1.0 packs/day for 2 years ? ? Smokeless tobacco: Never Used Comment: one pack for a week ? ? Alcohol Use: 0.5 oz/week 1 Cans of beer per week accas. Family History Problem Relation Age of Onset ? ? Heart Disease Mother Review of Systems Cardiovascular: negative for chest pain. Constitutional: negative for fevers. Gastrointestinal: negative for nausea. Respiratory: negative for shortness of breath. Objective: Patient Vitals for the past 8 hrs: BP Temp Temp src Pulse Resp SpO2 04/06/11 0810 100/61 mmHg 98.1 ??F (36.7 ??C) Oral 79 18 97 % Intake/Output Summary (Last 24 hours) at 04/06/11 1413 Last data filed at 04/06/11 1412 Gross per 24 hour Intake 5221.92 ml Output 2420 ml Net 2801.92 ml General appearance: alert, in no distress Back: symmetric, No CVA tenderness Lungs: clear to auscultation bilaterally, normal respiratory effort Heart: normal rate and regular rhythm Abdomen: Soft, non-tender. No masses, no organomegaly. Back: mild right cva discomfort. Data Review: CBC: Lab Results Component Value Date WBC 4.3 04/06/2011 RBC 4.00 04/06/2011 HEMOGLOBIN 12.1 04/06/2011 HEMATOCRIT 37.7 04/06/2011 PLATELETS 215 04/06/2011 BMP: Lab Results Component Value Date GLUCOSE 93 04/06/2011 SODIUM 140 04/06/2011 POTASSIUM 3.9 04/06/2011 CHLORIDE 107 04/06/2011 CO2 23 04/06/2011 BUN 8 04/06/2011 CREATININE 0.59 04/06/2011 CALCIUM 8.7 04/06/2011 ua 11 wbc, 1 rbc Assessment: Active Problems: UTI (urinary tract infection) Nausea alone Acute pyelonephritis Dehydration UTI: unfortunately she is unable to orally tolerate any cipro, keflex, ormacrobid. Plan: Continue ceftriaxone, agree with trial of levaquin and ID consult. Will check renal u/s to assess her kidneys for obstruction and her h/oatrophic left kidney Patrice Zuniga MD INPATIENT CONSULT OR DERABLES * (ABNORMAL) CBC WITH DIFFERENTIAL (04/06/2011 7:24 AM BARREL LATHE OPERATOR OUTSIDE) WBC 4.3 4.0 - 9.8 K/uL [facility] RBC 4.00 3.90 - 4.90 M/uL [facility] HEMOGLOBIN 12.1 11.8 - 14.8 g/dL [facility] HEMATOCRIT 37.7 35.5 - 44.0 % [facility] MCV 94.3 82.0 - 99.0 fL [facility] MCH 30.3 27.2 - 32.6 pg [facility] MCHC 32.1 31.5 - 35.5 % [facility] PLATELETS 215 140 - 350 K/uL [facility] MPV 11.3 9.3 - 12.4 fL [facility] RDW 12.6 11.5 - 14.5 % [facility] RDW-STDEV 43.1 37.1 - 48.7 fL [facility] NEUTROPHILS 37(L) 45 - 70 % [facility] LYMPHOCYTES 43 16 - 45 % [facility] MONOCYTES 16(H) 3 - 13 % [facility] EOSINOPHILS 4 0 - 7 % [facility] BASOPHILS 1 0 - 2 % [facility] NEUTROPHIL ABSOLUTE 1.60(L) 1.90 - 7.00 K/uL [facility] LYMPHOCYTE ABSOLUTE 1.83 0.70 - 4.50 K/uL [facility] MONOCYTE ABSOLUTE 0.67 0.10 - 1.30 K/uL [facility] EOSINOPHIL ABSOLUTE 0.18 0.00 - 0.70 K/uL [facility] BASOPHILS ABSOLUTE 0.02 0.00 - 0.20 K/uL [facility] Blood specimen (specimen) 04/06/2011 7:24 AM BARREL LATHE OPERATOR OUTSIDE 04/06/2011 7:38 AM BARREL LATHE OPERATOR OUTSIDE Drake Norton MD HEMATOLOGY ORDERABLE S [facility] CLIA# [id number] [address] [facility] [place] [address] * BASIC METABOLIC PANEL (04/06/2011 7:24 AM BARREL LATHE OPERATOR OUTSIDE) SODIUM 140 135 - 145 mmol/L [facility] POTASSIUM 3.9 3.5 - 4.9 mmol/L [facility] CHLORIDE 107 96 - 108 mmol/L [facility] CO2 23 22 - 30 mmol/L [facility] CALCIUM 8.7 8.6 - 10.2 mg/dL [facility] BUN 8 6 - 20 mg/dL [facility] CREATININE 0.59 0.51 - 0.95 mg/dL [facility] GLUCOSE 93 65 - 99 mg/dL [facility] GFR, >60 >=60 mL/min/1. 7 sq meter [facility] GFR >60 >=60 mL/min/1. 7 sq meter [facility] Comment: GFR is calculated using the IDMS-Traceable Modification of Diet in Renal Disease (MDRD) Study formula and is only valid for patients 18 years or older. Further interpretative information is available in the Laboratory Services Policy Manual on the [facility] Intranet at: [email or web address].[facility]/ Blood specimen (specimen) 04/06/2011 7:24 AM BARREL LATHE OPERATOR OUTSIDE 04/06/2011 7:38 AM BARREL LATHE OPERATOR OUTSIDE Drake Norton MD CHEMISTRY ORDERABLES [facility]# [id number] [address] [place] [id number] * MRSA PCR RAPID SCREEN (04/05/2011 1:42 PM BARREL LATHE OPERATOR OUTSIDE) MRSA PCR RESULT Negative Negative [facility] MRSA PCR SOURCE Nares [facility] MRSA PCR INTEPRETATION See Comment [facility] Comment:Presumed NOT coloniz ed with MRSA. Specimen of unknown material (specimen) ANTERIOR NARES SWAB / Unknown 04/05/2011 1:42 PM BARREL LATHE OPERATOR OUTSIDE 04/05/2011 2:16 PM BARREL LATHE OPERATOR OUTSIDE Comment:NARES Vicente Ullery MD MICROBIOLOGY - GENER AL ORDERABLES [facility] CLIA# [id number] [address] [place] [address] * URINE CULTURE (04/05/2011 1:06 PM BARREL LATHE OPERATOR OUTSIDE) FINAL MICRO REPORT No growth 24 hours [facility] 04/05/2011 1:06 PM BARREL LATHE OPERATOR OUTSIDE 04/05/2011 1:51 PM BARREL LATHE OPERATOR OUTSIDE Comment:URINE VOIDED Vicente Lal MD MICROBIOLOGY - GENER AL ORDERABLES Performing Organization Address City/[facility] Co de Phone Number [facility] CLIA# [id number] [address] [place] [address] * (ABNORMAL) URINALYSIS (04/05/2011 1:06 PM BARREL LATHE OPERATOR OUTSIDE) COLOR UA Yellow [facility] CLARITY UA Clear Clear [facility] SPECIFIC GRAVITY UA 1.016 1.001 - 1.035 [facility] PH UA 6.0 5.0 - 8.0 [facility] LEUKOCYTE ESTERASE UA Trace(A) Negative [facility] NITRITE UA Negative Negative [facility] PROTEIN UA Negative Negative [facility] GLUCOSE UA Negative Negative [facility] KETONES UA 2+(A) Negative [facility] UROBILINOGEN UA <1 <=1 mg/dL [facility] BILIRUBIN UA Negative Negative [facility] BLOOD UA 1+(A) Negative [facility] [place] WBC UA 11(H) 0 - 5 /HPF [facility] RBC UA 1 0 - 4 /HPF [facility] BACTERIA UA 1+(A) None Seen /HPF [facility] EPITHELIAL CELLS, URINE 2-5 /HPF [facility] 04/05/2011 1:06 PM BARREL LATHE OPERATOR OUTSIDE 04/05/2011 1:22 PM BARREL LATHE OPERATOR OUTSIDE Comment:URINE VOIDED Vicente Lal MD URINE ORDERABLES Performing Organization Address [facility] de Phone Number [facility]# [id number] [address] [place] [address] * URINALYSIS WITH REFLEX CULTURE (04/05/2011 1:06 PM BARREL LATHE OPERATOR OUTSIDE) Pathologist [facility] URINE CULTURE ORDER Culture ordered [facility] Comment: Criteria for a reflex culture include one or more of the following: ??Abnormal nitrite, leukocyte esterase, WBCs or RBCs. ??Lack of qualifying criteria does not exclude the possiblity of a urinary tract infection. ??Dilute urine, drug interference, etc. may decrease the sensitivity of the criteria analytes. Urine, clean catch 04/05/2011 1:06 PM BARREL LATHE OPERATOR OUTSIDE 04/05/2011 1:22 PM BARREL LATHE OPERATOR OUTSIDE Comment:URINE VOIDED Vicente Lal MD URINE ORDERABLES Performing Organization Address [facility] de Phone Number [facility]# [id number] [address] [place] [address] * HCG QUANTITATIVE, BLOOD (04/05/2011 12:14 PM BARREL LATHE OPERATOR OUTSIDE) Pathologist [facility] HCG QUANT, BLOOD <5 0 - 5 mIU/mL [facility] Comment: Result of 5 - 25 mIU/mL is indeterminant for , repeat of test recommemded in 48 hours. Reference Range: Gestational Age: 3 ??Weeks ?5.8 - 71.2 ?mIU/mL 4 ??Weeks ?9.5 - 750 ? mIU/mL 5 ??Weeks ?217 - 7138 ?mIU/mL 6 ??Weeks ?158 - 31,795 ?mIU/mL 7 ??Weeks ? 3697 - 163,563 ?? mIU/mL 8 ??Weeks ? 32,065 - 149,571 ?? mIU/mL 9 ??Weeks ? 63,803 - 151,410 ?? mIU/mL 10 Weeks ? 46,509 - 186,977 ?? mIU/mL 12 Weeks ? 27,832 - 210,612 ?? mIU/mL 14 Weeks ? 13,950 - 62,530 ?mIU/mL 15 Weeks ? 12,039 - 70,971 ?mIU/mL 16 Weeks ? 9040 - 56,451 ?mIU/mL 17 Weeks ? 8175 - 55,868 ?mIU/mL 18 Weeks ? 8099 - 58,176 ?mIU/mL Heterophile antibodies and other interfering substances in the serum of some patients may cause a false-positive result in this assay. ??Before making a diagnosis of malignancy or ectopic ,the result of this test should be confirmed with a urine HCG test and correlated with other clinical evidence. Blood specimen (specimen) 04/05/2011 12:14 PM BARREL LATHE OPERATOR OUTSIDE 04/05/2011 12:42 PM BARREL LATHE OPERATOR OUTSIDE Drake Norton MD CHEMISTRY ORDERABLES [facility] CLIA# [id number] [address] [place] [address] * (ABNORMAL) CBC WITH DIFFERENTIAL (04/05/2011 12:14 PM BARREL LATHE OPERATOR OUTSIDE) WBC 5.8 4.0 - 9.8 K/uL [facility] RBC 4.59 3.90 - 4.90 M/uL [facility] HEMOGLOBIN 14.1 11.8 - 14.8 g/dL [facility] HEMATOCRIT 42.9 35.5 - 44.0 % [facility] MCV 93.5 82.0 - 99.0 fL [facility] MCH 30.7 27.2 - 32.6 pg [facility] MCHC 32.9 31.5 - 35.5 % [facility] PLATELETS 231 140 - 350 K/uL [facility] MPV 11.3 9.3 - 12.4 [facility] RDW 12.5 11.5 - 14.5 % [facility] RDW-STDEV 42.2 37.1 - 48.7 [facility] NEUTROPHILS 56 45 - 70 % [facility] LYMPHOCYTES 27 16 - 45 % [facility] MONOCYTES 14(H) 3 - 13 % [facility] EOSINOPHILS 2 0 - 7 % [facility] BASOPHILS 0 0 - 2 % [facility] NEUTROPHIL ABSOLUTE 3.23 1.90 - 7.00 K/uL [facility] LYMPHOCYTE ABSOLUTE 1.58 0.70 - 4.50 K/uL [facility] MONOCYTE ABSOLUTE 0.83 0.10 - 1.30 K/uL [facility] EOSINOPHIL ABSOLUTE 0.11 0.00 - 0.70 K/uL [facility] BASOPHILS ABSOLUTE 0.01 0.00 - 0.20 K/uL [facility] Blood specimen (specimen) 04/05/2011 12:14 PM BARREL LATHE OPERATOR OUTSIDE 04/05/2011 12:17 PM BARREL LATHE OPERATOR OUTSIDE Vicente Lal MD HEMATOLOGY ORDERABLE S [facility] CLIA# [id number] [address] [facility] [place] [address] * (ABNORMAL) C-REACTIVE PROTEIN (04/05/2011 12:14 PM BARREL LATHE OPERATOR OUTSIDE) CRP 2.4(H) 0.0 - 0.8 mg/dL [facility] Blood specimen (specimen) 04/05/2011 12:14 PM BARREL LATHE OPERATOR OUTSIDE 04/05/2011 12:17 PM BARREL LATHE OPERATOR OUTSIDE Vicente Lal MD CHEMISTRY ORDERABLES [facility]# [id number] [address] [facility] [place] [address] * COMPREHENSIVE METABOLIC PANEL (04/05/2011 12:14 PM BARREL LATHE OPERATOR OUTSIDE) SODIUM 137 135 - 145 mmol/L [facility] POTASSIUM 4.1 3.5 - 4.9 mmol/L [facility] CHLORIDE 102 96 - 108 mmol/L [facility] CO2 24 22 - 30 mmol/L [facility] CALCIUM 10.0 8.6 - 10.2 mg/dL [facility] BUN 12 6 - 20 mg/dL [facility] CREATININE 0.68 0.51 - 0.95 mg/dL [facility] GLUCOSE 83 65 - 99 mg/dL [facility] TOTAL PROTEIN 7.9 6.3 - 8.6 g/dL [facility] ALBUMIN 4.6 3.4 - 4.8 g/dL [facility] BILIRUBIN TOTAL 0.4 0.2 - 1.0 mg/dL [facility] ALKALINE PHOSPHATASE 75 35 - 104 U/L [facility] AST 26 12 - 32 U/L [facility] ALT 25 0 - 31 U/L [facility] GFR, >60 >=60 mL/min/1. 7 sq meter [facility] GFR >60 >=60 mL/min/1. 7 sq meter [facility] Comment: GFR is calculated using the IDMS-Traceable Modification of Diet in Renal Disease (MDRD) Study formula and is only valid for patients 18 years or older. Further interpretative information is available in the Laboratory Services Policy Manual on the [facility] Intranet at: [email or web address].pending sale to [facility]/ Blood specimen (specimen) 04/05/2011 12:14 PM BARREL LATHE OPERATOR OUTSIDE 04/05/2011 12:17 PM BARREL LATHE OPERATOR OUTSIDE Vicente Lal MD CHEMISTRY ORDERABLES [facility] CLIA# [id number] [address] [facility] [place] [address] documented in this encounter Visit Diagnoses Diagnosis UTI (urinary tract infection) Urinary tract infection, site not specified Nausea alone Acute pyelonephritis Acute pyelonephritis without lesion of renal medullary necrosis Dehydration Backache, unspecified UTI (urinary tract infection) Urinary tract infection, site not specified Nausea alone Acute pyelonephritis Acute pyelonephritis without lesion of renal medullary necrosis Dehydration documented in this encounter Administered Medications Inactive Administered Medications - up to 3 most recent administrations Medication Order MAR Action Action Date Dose Rate Site cefTRIAXone (ROCEPHIN) IVPB 1,000 mg 1,000 mg, IV, ONE TIME ONLY, 1 dose, On Wed04/05/11 at 1215, Routine Given 04/05/2011 12:18 PM BARREL LATHE OPERATOR OUTSIDE 1,000 mg cefTRIAXone (ROCEPHIN) IVPB 1,000 mg 1,000 mg, IV, EVERY 24 HOURS (DAILY), First dose on Wed04/06/11 at 1200, Until Discontinued, Routine Given 04/06/2011 11:46 AM BARREL LATHE OPERATOR OUTSIDE 1,000 mg cyclobenzaprine (FLEXERIL) tablet 10 mg 10 mg, Oral, THREE TIMES DAILY PRN, Starting on Wed04/06/11 at 1551, Until Wed04/07/11 at 1731, Spasm, Routine Given 04/06/2011 3:53 PM BARREL LATHE OPERATOR OUTSIDE 10 mg dextromethorphan-guaiF ENesin (ROBITUSSIN DM) 10-100 mg/5 mL oral solution 10 mL 10 mL, Oral, EVERY 6 HOURS PRN, Starting on Wed04/06/11 at 2347, Until Wed04/07/11 at 1731, Cough, Routine Given 04/07/2011 12:07 AM BARREL LATHE OPERATOR OUTSIDE 10 mL enoxaparin (LOVENOX) injection 40 mg 40 mg, subCUT, DAILY, First dose on 04/05/11 at 1815, Until Discontinued, Routine Given 04/07/2011 6:37 AM BARREL LATHE OPERATOR OUTSIDE 40 mg Abdomen, Right Upper Quadrant Given 04/06/2011 6:07 AM BARREL LATHE OPERATOR OUTSIDE 40 mg Ab domen, Right Lower Quadrant fosfomycin tromethamine (MONUROL) powder 3 Gram 3 Gram, Oral, ONE TIME ONLY, 1 dose, On Wed04/06/11 at 1845, Routine Given 04/06/2011 7:08 PM BARREL LATHE OPERATOR OUTSIDE 3 Grams ketorolac (TORADOL) injection 30 mg 30 mg, IV, ONE TIME ONLY, 1 dose, On 04/05/11 at 1230, Routine Given 04/05/2011 12:22 PM BARREL LATHE OPERATOR OUTSIDE 30 mg ondansetron (ZOFRAN) 4 mg/2 mL injection 4 mg 4 mg, IV, ONE TIME ONLY, 1 dose, On 04/05/11 at 1215, Routine Given 04/05/2011 12:17 PM BARREL LATHE OPERATOR OUTSIDE 4 mg ondansetron (ZOFRAN) 4 mg/2 mL injection 4 mg 4 mg, IV, EVERY 6 HOURS PRN, Starting on 04/05/11 at 1739, Until Wed04/07/11 at 1731, Nausea/Emesis, Routine Given 04/06/2011 11:45 AM BARREL LATHE OPERATOR OUTSIDE 4 mg sodium chloride 0.9 % infusion IV, at 150 mL/hr, CONTINUOUS, Starting on 04/05/11 at 1215, Until Wed04/05/11 at 2028, Routine Rate Verify 04/05/2011 3:00 PM BARREL LATHE OPERATOR OUTSIDE 150 mL/hr New Bag 04/05/2011 1:10 PM BARREL LATHE OPERATOR OUTSIDE 150 mL/hr sodium chloride 0.9 % infusion IV, at 125 mL/hr, CONTINUOUS, Starting on 04/05/11 at 1745, Until Wed04/06/11 at 1744, Routine Rate Verify 04/06/2011 1:17 PM BARREL LATHE OPERATOR OUTSIDE 125 mL/hr Bag Switched 04/06/2011 11:41 AM BARREL LATHE OPERATOR OUTSIDE 125 mL/hr Rate Verify 04/06/2011 7:55 AM BARREL LATHE OPERATOR OUTSIDE 125 mL/hr sodium chloride 0.9% bolus solution 1,000 mL 1,000 mL, IV, ONE TIME ONLY, 1 dose, On 04/05/11 at 1215, at 2,000 mL/hr, Administer over 30 Minutes, Routine Given 04/05/2011 12:12 PM BARREL LATHE OPERATOR OUTSIDE 1,000 mL 2000 mL/hr documented in this encounter Active and Recently Administered Medications Times are shown in BARREL LATHE OPERATOR OUTSIDE. Scheduled Medication Order 04/05/2011 04/06/2011 04/07/2011 cefTRIAXone (ROCEPHIN) IVPB 1,000 mg (COMPLETED) 1,000 mg, IV, ONE TIME ONLY, 1 dose, On 04/05/11 at 1215, Routine 1218 (Given - Provider: Jairo Riddle, MAGDY) cefTRIAXone (ROCEPHIN) IVPB 1,000 mg (CANCELED) 1,000 mg, IV, EVERY 24 HOURS (DAILY), First dose on Wed04/06/11 at 1200, Until Discontinued, Routine 1146 (Given - Provider: Georgina Portillo RN - Comment: done at 1220) 1200 (Not Given - Provider: Rebecca Duke RN - Reason: Route not available) enoxaparin (LOVENOX) injection 40 mg (CANCELED) 40 mg, subCUT, DAILY, First dose on 04/05/11 at 1815, Until Discontinued, Routine 0607 (Given - Provider: Rossana Sousa RN) 0637 (Given - Provider: Rossana Copeland RN) fosfomycin tromethamine (MONUROL) powder 3 Gram (COMPLETED) 3 Gram, Oral, ONE TIME ONLY, 1 dose, On Wed04/06/11 at 1845, Routine 1908 (Given - Provider: Rebecca Duke RN) ketorolac (TORADOL) injection 30 mg (COMPLETED) 30 mg, IV, ONE TIME ONLY, 1 dose, On 04/05/11 at 1230, Routine 1222 (Given - Provider: Jairo Riddle RN - Comment: pt c/o diffuse mild headache.) ondansetron (ZOFRAN) 4 mg/2 mL injection 4 mg (COMPLETED) 4 mg, IV, ONE TIME ONLY, 1 dose, On 04/05/11 at 1215, Routine 1217 (Given - Provider: Jairo Riddle RN) sodium chloride 0.9% bolus solution 1,000 mL (COMPLETED) 1,000 mL, IV, ONE TIME ONLY, 1 dose, On 11/13/11 at 1215, at 2,000 mL/hr, Administer over 30 Minutes, Routine 1212 (Given - Provider: Jairo Riddle RN) Continuous Medication Order 04/05/2011 04/06/2011 04/07/2011 sodium chloride 0.9 % infusion (CANCELED) IV, at 150 mL/hr, CONTINUOUS, Starting on Wed04/05/11 at 1215, Until Wed04/05/11 at 2028, Routine 1310 (New Bag - Provider: Jairo Riddle RN)1500 (Rate Verify - Provider: Georgina Portillo RN) sodium chloride 0.9 % infusion () IV, at 125 mL/hr, CONTINUOUS, Starting on Wed04/05/11 at 1745, Until Wed04/06/11 at 1744, Routine 1933 (New Bag - Provider: Georigna Portillo RN)2200 (Rate Verify - Provider: Rossana Sousa RN) 0341 (New Bag - Provider: Rossana Sousa RN)0600 (Rate Verify - Provider: Rossana Sousa RN)0755 (Rate Verify - Provider: Georgina Portillo RN)1141 (Bag Switched - Provider: Georgina Portillo RN)1317 (Rate Verify - Provider: Georgina Portillo RN)1810 (Stopped - Provider: Rebecca Duke RN) PRN Medication Order 04/05/2011 04/06/2011 04/07/2011 cyclobenzaprine (FLEXERIL) tablet 10 mg (CANCELED) 10 mg, Oral, THREE TIMES DAILY PRN, Starting on Wed04/06/11 at 1551, Until Wed04/07/11 at 1731, Spasm, Routine 1553 (Given - Provider: Rebecca Duke RN) dextromethorphan-guaiFENe sin (ROBITUSSIN DM) 10-100 mg/5 mL oral solution 10 mL (CANCELED) 10 mL, Oral, EVERY 6 HOURS PRN, Starting on Wed04/06/11 at 2347, Until Wed04/07/11 at 1731, Cough, Routine 0007 (Given - Provid er: Rossana Copeland RN) ondansetron (ZOFRAN) 4 mg/2 mL injection 4 mg (CANCELED) 4 mg, IV, EVERY 6 HOURS PRN, Starting on 04/05/11 at 1739, Until 04/07/11 at 1731, Nausea/Emesis, Routine 1145 (Given - Provider: Georgina Portillo RN) documented in this encounter Care Teams Marina Manager Relationship Specialty Start Date End Date Gadiel Majano MD [address] [place] [id number] PCP - General 02/25/07 documented as of this encounter
--- OUTSIDE RECORDS SUMMARY | 2024-05-11 15:00 | XMS_ITS | Encounter Summary ---
Author Organization [facility] Address [address] [place] [address] Care Team Providers Care Technical Support Intern Name Role Phone Gadiel Majano MD Primary Care Provider [phone] Encounter Details Date Type Department Care Team (Late Contact Info) Description 02/25/2009 Orders Only [facility] Internal Medicine [address] [phone] Katey Nash NP [address] [place] [address] Right Hip Pain; Sciatica Social History Tobacco Use Types Packs/Day [...] (Late Contact Info) Description 05/19/2024 9:00 AM PRODUCT DEVELOPER Appointment [facility] Support Services [place] [address] [place] [address] Gadiel Majano MD [address] [place] [address] 06/05/2024 8:30 AM PRODUCT DEVELOPER App[facility]ment [facility] [place] [address] [place] [address] Gadiel Majano MD [address] [place] [address] [address] [place] [address] 08/09/2024 4:00 PM CDT Office Visit [facility] Care [facility] 6[address] [facility] [address] [place] [address] Jairo Matute PA [address] [place] [address] [address] [place] [address] 01/23/2025 3:20 PM CDT Office Visit [facility] [address] [place] [address] [address] [place] [address] Gadiel Majano MD [address] [place] [address] [address] [place] [address] 08/03/2025 8:30 AM CDT Office Visit [facility] NEUROLOGY - [facility] 5003B [address] [facility] [address] [place] [address] Aliza Lion MD 6[address] [facility] [address] [place] [address] documented as of this encounter Procedures Procedure Name Priority Date/Time Associated Diagnosis Comments XR HIP 2 OR 3 VIEWS RT Routine 02/22/2009 Right Hip Pain Sciatica documented in this encounter Results * XR HIP 2+ VW RIGHT (02/22/2009) Anatomical Region Laterality Modality Lower Extremity Right Other Katey Nash STUDENT COUNSELOR DIAGNOSTIC IMAGING O RDERABLES documented in this encounter Visit Diagnoses Diagnosis Right Hip Pain Pain in joint, pelvic region and thigh Sciatica documented in this encounter Care Teams Technical Support Intern Relationship Specialty Start Date End Date Gadiel Majano MD [address] [place] [address] [address] [place] [address] PCP - General 02/25/07 documented as of this encounter
--- OUTSIDE RECORDS SUMMARY | 2024-05-11 15:00 | XMS_ITS | Encounter Summary ---
Author Organization [facility] Address [address] [place] [address] Care Team Providers Care Lockmaker Name Role Phone Gadiel Majano MD Primary Care Provider [phone] Reason for Visit * Reason Onset Date Comments Medication Refill 01/30/2008 for UTI Encounter Details Date Type Department Care Team (Late st Contact Info) Description 01/30/2008 Refill [facility] Internal Medicine [address] [address] Gadiel Majano MD [address] [place] [address] Social History Tobacco Use Types Packs/Day Years Used Date Smoking Tobacco: Never Assessed Sex and Gender Information Value Date Recorded Sex Assigned at Not on file Gender Identity Not on file Sexual Orientation Not on file documented as of this encounter Miscellaneous Notes * Telephone Encounter - Yesenia Plaza - 01/30/2008 12:26 PM CDT Phoned script to pharmacy mother informed script ready. * Telephone Encounter - Yesenia Plaza - 01/30/2008 9:32 AM CDT Mother called states gilbert has UTI wants to know if you will call in a script for macrobid. Mother is going to make appt. With a specialist. Pharmacy [facility] [phone]. Mother,s cell ph. [phone]. documented in this encounter Plan of Treatment Upcoming Encounters Date Type Department Care Team (Late st Contact Info) Description 05/19/2024 9:00 AM HEAD LINEMAN Appointment [facility] [address] [place] [phone] Gadiel Majano MD [address] [place] [address] 06/05/2024 8:30 AM HEAD LINEMAN Appointment [facility] [address] [place] [address] Gadiel Majano MD [address] [place] [address] 08/09/2024 4:00 PM CDT Office Visit [place] [address] [place] [address] Jairo Matute, LISA [address] [place], [place] [address] [address] 01/23/2025 3:20 PM CDT Office Visit [place] [address] [place] [phone] Gadiel Majano MD [address] [place] [address] [address] [place] [address] 08/03/2025 8:30 AM CDT Office Visit [facility] NEUROLOGY - [place] [address] [facility] [address] [place] [address] Aliza Lion MD [address] [facility] [address] [place] [address] documented as of this encounter Visit Diagnoses Not on filedocumented in this encounter Care Teams Lockmaker Relationship Specialty Start Date End Date Gadiel Majano MD [address] [place] [phone] PCP - General 02/25/07 documented as of this encounter
--- OUTSIDE RECORDS SUMMARY | 2024-05-11 15:00 | XMS_ITS | Encounter Summary ---
Author Organization [facility] Address [address] [place] [address] Care Team Providers Care Lvn Name Role Phone Gadiel Majano MD Primary Care Provider Encounter Details Date Type Department Care Team (Late st Contact Info) Description 04/03/2011 Orders Only [facility] Internal Medicine [address] [address] Provider, Abstract NO ADDRESS ON FILE Social History Tobacco Use Types Packs/Day Years Used Date Smoking Tobacco: Never Smokeless Tobacco: Never Alcohol Use Standard Drinks/Week [...] (Late Contact Info) Description 05/19/2024 9:00 AM SANDER WOODEN PENCILS Appointment [facility] Support Services EEG [place] [address] [place] [address] Gadiel Majano MD [address] [place] [address] 06/05/2024 8:30 AM SANDER WOODEN PENCILS Appointment [facility] [address] [place] [address] [place] [address] Gadiel Majano MD [address] [place] [address] 08/09/2024 4:00 PM CDT Office Visit [facility] 637 [facility] [address] [place] [address] Jairo Matute PA [address] [place] [address] [place] [address] [place] [address] 01/23/2025 3:20 PM CDT Office Visit [facility] [address] [place] [address] [address] [place] [address] Gadiel Majano MD [address] [place] [address] [address] [place] [address] 08/03/2025 8:30 AM CDT Office Visit [facility] NEUROLOGY - [facility] 5003B [address] [facility] [address] [place] [address] Aliza Lion MD 6[address] [facility] [address] [place] [address] documented as of this encounter Procedures Procedure Name Priority Date/Time Associated Diagnosis Comments URINE CULTURE Routine 04/03/2011 documented in this encounter Results * URINE CULTURE (04/03/2011) Urine specimen (specimen) URINE SPECIMEN OBTAINED BY CLEAN CATCH PROCEDURE / Unknown Abstract Provider MICROBIOLOGY - GENER AL ORDERABLES [facility] LABORATORY SERVICES [facility]# [id number] [address] [facility] [place] [address] documented in this encounter Visit Diagnoses Not on filedocumented in this encounter Care Teams Lvn Relationship Specialty Start Date End Date Gadiel Majano MD [address] [place] [address] [address] [place] [address] PCP - General 02/25/07 documented as of this encounter
--- OUTSIDE RECORDS SUMMARY | 2024-05-11 15:00 | XMS_ITS | Encounter Summary ---
Author Organization [facility] Address [address] [facility] Attn: [place] [address] Care Team Providers Care Home Therapy Clinician Name Role Phone Gadiel Majano MD Primary Care Provider [phone] Encounter Details Date Type Department Care Team (Latest Contact Info) Description 07/11/2007 Orders Only Conversion, History Social History Tobacco Use Types Packs/Day Years Used Date Smoking Tobacco: Never Assessed Sex and Gender Information Value Date Recorded Sex Assigned at Not on file Gender Identity Not on file Sexual Orientation Not on file documented as of this encounter Progress Notes * Conversion, History - 08/17/2007 6:15 PM CDT documented in this encounter Plan of Treatment Upcoming Encounters Date Type Department Care Team (Late st Contact Info) Description 05/19/2024 9:00 AM PRESS MANAGER Appointment [facility] Support Services [place] [address] [place] [address] [place] [address] Gadiel Majano MD [address] [place] [address] 06/05/2024 8:30 AM PRESS MANAGER Appointment [facility] MRI [address] [place] [address] [place] [address] Gadiel Majano MD [address] [place] [address] 08/09/2024 4:00 PM CDT Office Visit [facility] [address] [place] [address] [address] [place] [address] Jairo Matute PA [address] [place] [address] [address] [place] [phone] 01/23/2025 3:20 PM CDT Office Visit [facility] [address] [place] [address] [address] [place] [address] Gadiel Majano MD [address] [place] [address] [address] [place] [address] 08/03/2025 8:30 AM CDT Office Visit [facility] NEUROLOGY - [facility] 5003B [address] [place] [address] [place] [address] Aliza Lion MD [address] [facility] [address] [place] [address] documented as of this encounter Visit Diagnoses Not on filedocumented in this encounter Care Teams Home Therapy Clinician Relationship Specialty Start Date End Date Gadiel Majano MD [address] [place] [address] [address] [place] [phone] PCP - General 02/25/07 documented as of this encounter
--- OUTSIDE RECORDS SUMMARY | 2024-05-11 15:00 | XMS_ITS | Encounter Summary ---
Author Organization [facility] Address [address] [place] [address] Care Team Providers Care Hypoid Gear Generator Name Role Phone Gadiel Majano MD Primary Care Provider [phone] Encounter Details Date Type Department Care Team (Late Contact Info) Description 01/19/2011 Orders Only [facility] Internal Medicine [address] [address] Yady Scott, ELLY[address] [place] [phone] Social History Tobacco Use Types Packs/Day Years [...] Contact Info) Description 05/19/2024 9:00 AM SENIOR UNDERWRITER Appointment [facility] Support Services EEG [address] [place] [address] [place] [address] Gadiel Majano MD [address] [place] [address] 06/05/2024 8:30 AM SENIOR UNDERWRITER [facility] [address] [place] [address] [place] [address] Gadiel Majano MD [address] [place] [address] [address] [place] [address] 08/09/2024 4:00 PM CDT Office Visit [facility] [address] [facility] [place] [address] [place] [address] Jairo Matute, LISA [address] [place] [address] [address] [place] [address] 01/23/2025 3:20 PM CDT Office Visit [facility] [address] [place] [address] [address] [place] [address] Gadiel Majano MD [address] [place] [address] [address] [place] [address] 08/03/2025 8:30 AM CDT Office Visit [facility] NEUROLOGY - COUNSELOR B [facility] 5003B [address] [facility] [address] [place] [address] Aliza Lion MD [address] [facility] [address] [place] [address] documented as of this encounter Procedures Procedure Name Priority Date/Time Associated Diagnosis Comments HCG QUANTITATIVE, BLOOD Routine 01/15/2011 documented in this encounter Results * HCG QUANTITATIVE, BLOOD (01/15/2011) Blood specimen (specimen) Yady SANABRIAM CHEMISTRY ORDERABLE S [facility] LABORATORY SERVICES [facility]# [id number] [address] [facility] [address] documented in this encounter Visit Diagnoses Not on filedocumented in this encounter Care Teams Hypoid Gear Generator Relationship Specialty Start Date End Date Gadiel Majano MD [address] [place] [address] [place] [phone] PCP - General 02/25/07 documented as of this encounter
--- OUTSIDE RECORDS SUMMARY | 2024-05-11 15:00 | XMS_ITS | Encounter Summary ---
Author Organization [facility] Address [address] [place] [address] Care Team Providers Care Epic Willow Specialist Name Role Phone Rashaun Reyez MD Primary Care Provider [phone] Encounter Details Date Type Department Care Team (Late st Contact Info) Description 04/18/2007 Orders Only [facility] Internal Medicine [address] [address] Rashaun Reyez MD [address] [place] [address] Social History Tobacco Use Types Packs/Day Years Used Date Smoking Tobacco: Never Assessed Sex and Gender Information Value Date Recorded Sex Assigned at Not on file Gender Identity Not on file Sexual Orientation Not on file documented as of this encounter Progress Notes * Rashaun Reyez MD - 10/06/2007 7:55 PM CDT CENTRAL TEST SCHEDULING DATE: APR 18, 2007 Note created by: Tabitha Gomez R 11:56 a Patient Name : TRAVON Antonia SAM Address: [address] [place] [address] [place] [address] D.O.B: 1990 SSN: [id number] Parent/Guardian if applicable: Patient Insurance: [employer] PLAN ID#: [id number] Group#: ORDER(S) #: [id number] Echo/complete Doppler , MRI of brain with contrast >>>>IN ECHO BEST TO CALL WORK. [phone] Mom- Dasia or cell [phone] BEST TIME TO CALL: ANYTIME. MAY WE LEAVE MESSAGE AT THAT NUMBER: YES, LEAVE MESSAGE. PLEASE SCHEDULE THE APPOINTMENT AT THE FOLLOWING LOCATION: [facility] for Echo,[place] for MRI TEST PRIORITY: 2 - 7 DAYS. ORDERING PHYSICIAN: RASHAUN REYEZ MD OFFICE PILOT FUEL ENGINEER & PHONE: Tabitha Gomez R ORDER PRINTED BY: APR 18, 2007 Monica Lacey M 12:01 p FOR SCHEDULING USE ONLY: FIRST ATTEMPT Date:APR 18, 2007 Obdulia Cortez 04:14 p Spoke with Patient. Pt mother. APR 18, 2007 Obdulia Cortez 04:15 p ARTIS. APPOINTMENT DATE : 04/21/2007 ( 11:20 Echo) APPOINTMENT DATE : 04/21/2007 ( 1:15 MRI) APPOINTMENT DATE : 04/21/2007 ( 11am MRI) APPOINTMENT DATE : 04/21/2007 ( 8am Echo) The appointment was scheduled by Obdulia Cortez at [phone] APR 18, 2007 Obdulia Cortez 04:16 p Pre-authorization number: [employer] [facility], nn Given/Authorized by: per fax ([facility]) FINAL ACTION Spoke with patient. Follow up completed. * Rashaun Reyez MD - 10/06/2007 7:55 PM CDT WEIGHT: 136lbs BLOOD PRESSURE: 100/60 Right Arm Sitting TEMPERATURE: 36.11??c Oral NURSE NAME: Yesenia Plaza R TOBACCO USE Patient does not currently use tobacco. CHIEF COMPLAINT had seizure on Sat. HISTORY: HISTORY: 780.2-SYNCOPE just gotten up, nausea, then loc fell hit head, woke up, then had seizure episode, x 30 seconds, then woke up and ok.imilar episone last May, saw Neurologist evelina britton, happened in am ROS: ENDOCRINE: No heat or cold intolerance, no excessive thirst. CARDIAC: No chest pain, palpitations, orthopnea, dyspnea on exertion, or paroxysmal nocturnal dyspnea. RESPIRATORY: No dyspnea, cough, hemoptysis or wheezing. GI: HAS BEEN NAUSEATED. PHYSICAL EXAMINATION: CONSTITUTIONAL: GENERAL APPEARANCE: Healthy appearing patient in no distress. EYES: PUPILS: Iris appears normal bilaterally, pupils equal and reactive. FUNDUSCOPIC EXAM: Ophthalmoscopic examination shows the fundi to be normal. The optic disc are flatand of normal size. There are no hemorrhages or exudates. EARS, NOSE, MOUTH AND THROAT: EARS: Tympanic membranes shiny without retraction. Canals unremarkable. Hearing grossly normal. ORAL: Inspection of gums, lips, palate, and teeth normal. No scars, lesions, or masses. Oral mucosaunremarkable with non-inflamed posterior pharynx. NECK/THYROID: Trachea midline. No thyroid enlargement, tenderness, or mass. No supraclavicular or cervical adenopathy. RESPIRATORY: Clear to auscultation and percussion. Normal respiratory effort. CARDIOVASCULAR: CARDIAC: Regular rhythm. No murmurs, rubs, or gallops. ARTERIAL: No aortic bruits. EDEMA/VARICOSITIES OF EXTREMITIES: No edema or varicosities. GASTROINTESTINAL: ABDOMEN: Soft, non-tender, without masses. Bowel sounds active. LIVER/SPLEEN/KIDNEY: No hepatosplenomegaly, tenderness or nodularity. Kidneys not palpable. ASSESSMENT/PLAN: 724.5-BACK PAIN has ortho appt pend 780.2-SYNCOPE discussed, suspect vagal episode vs other ie hypoglycemia,discussed diet, hydration reassess, no driving x 2 weeks LAB ORDERS: Order number: [id number] Test Ordered: ECHO/COMPLETE DOPPLER Order number: [id number] Test Ordered: MRI BRAIN W/CONTRAST 787.02-NAUSEA check lab 251.2-HYPOGLYCEMIA ?? check lab LAB ORDERS: fasting Order number: [id number] Test Ordered: CBC W/ DIFFERENTIAL 3150 Order number: [id number] Test Ordered: COMPREHENSIVE METABOLIC PANEL & GFR 1112 Order number: [id number] Test Ordered: LIPID PANEL 1078 Order number: [id number] Test Ordered: HEMOGLOBIN A1C 1814 Order number: [id number] Test Ordered: TSH 1720 Order number: [id number] Test Ordered: VITAMIN B12 LEVEL 1719 Patient Education: The patient was allowed to ask questions to stated satisfaction.and mother RETURN VISIT : Instructed to call if not improving. Electronically Signed by: Rashaun Reyez MD on Wednesday, April 18, 2007 documented in this encounter Plan of Treatment Upcoming Encounters Date Type Department Care Team (Late st Contact Info) Description 05/19/2024 9:00 AM APPRENTICE Appointment [facility] EEG [address] [place] [address] [place] [address] Rashaun Reyez MD [address] [place], [place] [phone] 06/05/2024 8:30 AM APPRENTICE Appointment [facility] [address] [place] [address] [place] [address] Rashaun Reyez MD [address] [place], [place] [phone] 08/09/2024 4:00 [place] [address] Jairo Matute PA [address] [place] [address] 01/23/2025 3:20 PM CDT Office Visit [place] [phone] Rashaun Reyez MD [address] [place] [phone] 08/03/2025 8:30 AM CDT Office Visit [facility] NEUROLOGY [facility] 5[address]B [address] [facility] [address] [place] [address] Aliza Lion MD [address] [facility] [address] [place] [address] documented as of this encounter Visit Diagnoses Not on filedocumented in this encounter Care Teams Epic Willow Specialist Relationship Specialty Start Date End Date Rashaun Reyez MD [address] [place] [phone] PCP - General 02/25/07 documented as of this encounter
--- OUTSIDE RECORDS SUMMARY | 2024-05-11 15:00 | XMS_ITS | Encounter Summary ---
Author Organization [facility] [place] [address] [place] [address] Care Team Providers Care Shipping Inspector Name Role Phone Gadiel Majano MD Primary Care Provider [phone] Reason for Visit * Reason Onset Date Comments Needs Orders Written 04/10/2009 Encounter Details Date Type Department Care Team (Late Contact Info) Description 04/10/2009 Telephone [facility] Internal Medicine [address] [address] Gadiel Majano MD [address] [place] [address] Needs Orders Written Social History Tobacco Use Types Packs/Day Years [...] * Telephone Encounter - Nicol Bryson - 04/10/2009 12:04 PM CST PT FELL AT SCHOOL & INJURED PT MADE AN APPT FOR TODAY. HAT INSPECTOR AND PACKER documented in this encounter Plan of Treatment Upcoming Encounters Date Type Department Care Team (Late st Contact Info) Description 05/19/2024 9:00 AM FELT HAT INSPECTOR AND PACKER Appointment [facility] EEG S [place] [address] [place] [address] Gadiel Majano MD [address] [place] [address] [address] [place] [address] 06/05/2024 8:30 AM FELT HAT INSPECTOR AND PACKER Appointment [facility] S [facility] [address] [place] [phone] Gadiel Majano MD [address] [place] [address] [address] [place] [address] 08/09/2024 4:00 PM CDT Office Visit [address] [place] [address] Jairo Matute PA [address] [place] [address] [address] [place] [address] 01/23/2025 3:20 PM CDT Office Visit [address] [place] [address] Gadiel Majano MD [address] [place] [address] [address] [place] [address] 08/03/2025 8:30 AM CDT Office Visit [facility] NEUROLOGY - [place] 5[address]B [address] [facility] [place] [address] [place] [address] Aliza Lion MD [address] [facility] [address] [place] [address] documented as of this encounter Visit Diagnoses Not on filedocumented in this encounter Care Teams Shipping Inspector Relationship Specialty Start Date End Date Gadiel Majano MD [address] [place] [address] [address] [place] [address] PCP - General 10/5/07 documented as of this encounter
--- OUTSIDE RECORDS SUMMARY | 2024-05-11 15:00 | XMS_ITS | Encounter Summary ---
Author Organization [facility] Address [address] [place] [address] Care Team Providers Care Principal Statistical Programmer Name Role Phone Gadiel Majano MD Primary Care Provider [phone] Encounter Details Date Type Department Care Team ([facility] Contact Info) Description 05/26/2007 Outpatient Historical [facility] Internal Medicine [address] [address] Gadiel Majano MD [address] [place] [address] Social History Tobacco Use Types Packs/Day Years Used Date Smoking Tobacco: Never Assessed Sex and Gender Information Value Date Recorded Sex Assigned at Not on file Gender Identity Not on file Sexual Orientation Not on file documented as of this encounter Last Filed Vital Signs Vital Sign Reading Time Taken Comments Blood Pressure 110/70 05/26/2007 4:00 PM INDEPENDENT AGENT MUSIC EDUCATION Pulse - - Temperature 36.2 ??C (97.2 ??F) 05/26/2007 4:00 PM CS T Respiratory Rate - - Oxygen Saturation - - Inhaled Oxygen Concentration - - Weight 61.7 kg (136 lb) 05/26/2007 4:00 PM INDEPENDENT AGENT MUSIC EDUCATION Height - - Body Mass Index - - documented in this encounter Plan of Treatment Upcoming Encounters Date Type Department Care Team (Late Contact Info) Description 05/19/2024 9:00 AM INDEPENDENT AGENT MUSIC EDUCATION Appointment [facility] Services [place] [address] [place] [address] Gadiel Majano MD [address] [place] [address] [address] [place] [phone] 06/05/2024 8:30 AM INDEPENDENT AGENT MUSIC EDUCATION Appointment [facility] [address] [place] [address] Gadiel Majano MD [address] [place] [address] [address] [place] [address] 08/09/2024 4:00 PM CDT Office Visit [address] [place] [address] Jairo Matute PA [address] [place] [address] [address] [place] [address] 01/23/2025 3:20 PM CDT Office Visit [address] [place] [address] Gadiel Majano MD [address] [place] [address] [address] [place] [address] 08/03/2025 8:30 AM CDT Office Visit [facility] NEUROLOGY - [place] - [place] 5003B 6[address] [facility] [address] [place] [address] Aliza Lion MD 6[address] [facility] [address] [place] [address] documented as of this encounter Visit Diagnoses Not on filedocumented in this encounter Care Teams Principal Statistical Programmer Relationship Specialty Start Date End Date Gadiel Majano MD [address] [place] [address] [address] [place] [address] PCP - General 02/25/07 documented as of this encounter
--- OUTSIDE RECORDS SUMMARY | 2024-05-11 15:00 | XMS_ITS | Encounter Summary ---
Author Organization [facility] Address [address] [place] [address] Care Team Providers Care Benefits Director Name Role Phone Gadiel Majano MD Primary Care Provider [phone] Encounter Details Date Type Department Care Team (Latest Contact Info) Description 04/11/2007 Outpatient Historical [facility] Gadiel Majano MD [address] [place] [address] Juvenile Osteochondrosis of Spine (Primary Dx) Social History Tobacco Use Types Packs/Day Years Used Date Smoking Tobacco: Never Assessed Sex and Gender Information Value Date Recorded Sex Assigned at Not on file Gender Identity Not on file Sexual Orientation Not on file documented as of this encounter Plan of Treatment Upcoming Encounters Date Type Department Care Team (Late st Contact Info) Description 05/19/2024 9:00 AM PUBLIC INFORMATION COORDINATOR Appointment [facility] Support Services [place] [address] [place] [address] Gadiel Majano MD [address] [place] [address] 06/05/2024 8:30 AM PUBLIC INFORMATION COORDINATOR [facility] [address] [place] [address] [place] [address] Gadiel Majano MD [address] [place] [phone] 08/09/2024 4:00 PM CDT Office Visit [facility] Care [facility] [address] [place] [address] [address] [place] [address] Jairo Matute PA [address] [place] [address] [address] [place] [phone] 01/23/2025 3:20 PM CDT Office Visit [address] [place] [address] Gadiel Majano MD [address] [place] [address] [address] [place] [address] 08/03/2025 8:30 AM CDT Office Visit [facility] NEUR[facility] 5003B 6[address] [facility] [address] [place] [address] Aliza Lion MD [address] [facility] [address] [place] [address] documented as of this encounter Visit Diagnoses Diagnosis Juvenile osteochondrosis of spine- Primary documented in this encounter Care Teams Benefits Director Relationship Specialty Start Date End Date Gadiel Majano MD [address] [place] [address] [address] [place] [phone] PCP - General 02/25/07 documented as of this encounter
--- OUTSIDE RECORDS SUMMARY | 2024-05-11 15:00 | XMS_ITS | Encounter Summary ---
Author Organization [facility] Address [address] [place] [address] Care Team Providers Care Turn Out Worker Name Role Phone Gadiel Majano MD Primary Care Provider [phone] Encounter Details Date Type Department Care Team (Late Contact Info) Description 03/24/2010 Abstract [facility] Internal Medicine [address] [address] Gadiel Majano MD [address] [place] [address] Social History Tobacco Use Types Packs/Day [...] st Contact Info) Description 05/19/2024 9:00 AM OFFICE EQUIPMENT MECHANIC Appointment [facility] Support Services [place] [address] [place] [address] Gadiel Majano MD [address] [place] [address] 06/05/2024 8:30 AM OFFICE EQUIPMENT MECHANIC [facility] [place] [address] [place] [address] Gadiel Majano MD [address] [place] [address] [address] [place] [address] 08/09/2024 4:00 PM CDT Office Visit [facility] 637 [facility] [place] [address] [place] [address] Jairo Matute, LISA [address] [place] [address] [address] [place] [address] 01/23/2025 3:20 PM CDT Office Visit [address] [place] [address] Gadiel Majano MD [address] [place] [address] [address] [place] [address] 08/03/2025 8:30 AM CDT Office Visit [facility] NEUROLOGY - [place] [facility] - [facility] 5003B 6[address] S [facility] [address] [place] [address] Aliza Lion MD 621 [address] [facility] [address] [place] [address] documented as of this encounter Visit Diagnoses Not on filedocumented in this encounter Care Teams Turn Out Worker Relationship Specialty Start Date End Date Gadiel Majano MD [address] [place] [address] [address] [place] [address] PCP - General 02/25/07 documented as of this encounter
--- OUTSIDE RECORDS SUMMARY | 2024-05-11 15:00 | XMS_ITS | Encounter Summary ---
Author Organization [facility] Address [address] [place] [address] Care Team Providers Care Conductor Road Freight Name Role Phone Gadiel Majano MD Primary Care Provider Encounter Details Date Type Department Care Team (Late st Contact Info) Description 11/28/2010 Orders Only [facility] Internal Medicine [address] [address] Provider, Abstract NO ADDRESS ON [...] (Late Contact Info) Description 05/19/2024 9:00 AM FURNACE MECHANIC Appointment [facility] Support Services [place] [address] [place] [address] [place] [address] Gadiel Majano MD [address] [place] [address] 06/05/2024 8:30 AM FURNACE MECHANIC Appointment [facility] [place] [address] [place] [address] Gadiel Majano MD [address] [place] [address] 08/09/2024 4:00 PM CDT Office Visit [facility] Care [facility] 6[address] [facility] [place] [address] [place] [address] Jairo Matute PA [address] [place] [address] [place] [address] [place] [address] 01/23/2025 3:20 PM CDT Office Visit [facility] [address] [place] [address] [address] [place] [address] Gadiel Majano MD [address] [place] [address] [address] [place] [address] 08/03/2025 8:30 AM CDT Office Visit [facility] 5003[facility] 6[address] [facility] [address] [place] [address] Aliza Lion MD [address] [facility] [address] [place] [address] documented as of this encounter Procedures Procedure Name Priority Date/Time Associated Diagnosis Comments MISCELLANEOUS LAB TEST Routine 11/22/2010 documented in this encounter Results * MISCELLANEOUS LAB TEST (11/22/2010) Specimen of unknown material (specimen) Abstract Provider CHEMISTRY ORDERABLES [facility] CLIA# [id number] [address] [facility] [place] [address] documented in this encounter Visit Diagnoses Not on filedocumented in this encounter Care Teams Conductor Road Freight Relationship Specialty Start Date End Date Gadiel Majano MD [address] [place] [address] [address] [place] [address] PCP - General 02/25/07 documented as of this encounter
--- OUTSIDE RECORDS SUMMARY | 2024-05-11 15:00 | XMS_ITS | Encounter Summary ---
Author Organization [facility] Address [address] [place] [address] Care Team Providers Care Inspector General Name Role Phone Gadiel Majano MD Primary Care Provider Encounter Details Date Type Department Care Team (Late st Contact Info) Description 11/26/2010 Orders Only [facility] Internal Medicine [address] [address] Provider, Abstract NO ADDRESS ON [...] (Late Contact Info) Description 05/19/2024 9:00 AM MASTER TAX ADVISOR Appointment [facility] Support Services [place] [address] [place] [address] [place] [address] Gadiel Majano MD [address] [place] [address] 06/05/2024 8:30 AM MASTER TAX ADVISOR Appointment [facility] [address] [place] [address] [place] [address] Gadiel Majano MD [address] [place] [phone] 08/09/2024 4:00 PM CDT Office Visit [facility] [address] [place] [address] [place] [address] [place] [address] Jairo Matute PA [address] [place] [address] [address] [place] [address] 01/23/2025 3:20 PM CDT Office Visit [facility] [address] [place] [address] [address] [place] [address] Gadiel Majano MD 637 [facility] [address] [place] [address] 08/03/2025 8:30 AM CDT Office Visit [facility] NEUROLOG[facility] - [facility] 5003B [address] [facility] [address] [place] [address] Aliza Lion MD [address] [facility] [address] [place] [address] documented as of this encounter Procedures Procedure Name Priority Date/Time Associated Diagnosis Comments MISCELLANEOUS LAB TEST Routine 11/26/2010 CT ABDOMEN PELVIS WO CONTRAST Routine 11/26/2010 documented in this encounter Results * MISCELLANEOUS LAB TEST (11/26/2010) Specimen of unknown material (specimen) Abstract Provider CHEMISTRY ORDERABLES [facility] CLIA# [id number] [address] [facility] [place] [address] * CT ABDOMEN PELVIS WO CONTRAST (11/26/2010) Anatomical Region Laterality Modality Abdomen Other Abstract Provider CT ORDERABLES documented in this encounter Visit Diagnoses Not on filedocumented in this encounter Care Teams Inspector General Relationship Specialty Start Date End Date Gadiel Majano MD [address] [place] [address] PCP - General 02/25/07 documented as of this encounter
--- OUTSIDE RECORDS SUMMARY | 2024-05-11 15:00 | XMS_ITS | Encounter Summary ---
Author Organization [facility] Address [address] [place] [address] Care Team Providers Care Continuous Pickling Line Pickler Helper Name Role Phone Rashaun Reyez MD Primary Care Provider [phone] Encounter Details Date Type Department Care Team (Late st Contact Info) Description 04/12/2007 Orders Only [facility] Internal Medicine [address] [address] Rashaun Reyez MD [address] [place] [address] Social History Tobacco Use Types Packs/Day Years Used Date Smoking Tobacco: Never Assessed Sex and Gender Information Value Date Recorded Sex Assigned at Not on file Gender Identity Not on file Sexual Orientation Not on file documented as of this encounter Progress Notes * Rashaun Reyez MD - 10/06/2007 6:58 PM CDT TIME:02:23 pm PATIENT`S HOME PHONE: PATIENT`S WORK PHONE: PATIENT`S INSURANCE: [employer] WHO TOOK THE CALL: Nicol Bryson L GENERAL INFORMATION WHO CALLED: Patient`s mother called.Dasia [phone] cell SECTION 1: REQUESTED ACTION good 04/12/07 at 02:23 pm: Mother returning your call. DOCTOR`S RESPONSE: carlos 04/12/07 at 02:28 pm PT PROBLEMS & ORDERS: 724.5-BACK PAIN MRI reviewed with mom, refer Dr.Keith Sheth at [facility] for Scheuermann's disease FINAL ACTION: natijyoel 04/12/07 at 05:15 pm completed sent to crs. Electronically Signed by: Cherelle Lyn on Thursday, April 12, 2007 * Rashaun Reyez MD - 10/06/2007 6:55 PM CDT SPECIALIST REFERRAL REQUEST DATE: APR 12, 2007 Note created by: Cherelle Lyn C 05:12 p Patient Name : TRAVON CORRAL Address: [address] [place] [address] [address] [facility] [address] D.O.B: 1990 SSN: [id number] Parent/Guardian if applicable: Patient Insurance: [employer] Policy#: [id number] Group #: Best To Call : HOME. Best Time to Call : ANYTIME. May We Leave Message At That Number : YES, LEAVE MESSAGE. Referring to: ORTHOPEDICS Dr. Sheth - [phone] Reason for referral: Scheuermanns Disease ORDERING PHYSICIAN : RASHAUN REYEZ MD PRIORITY OF REFERRAL: AT PATIENT'S CONVENIENCE. OFFICE ICE CREAM SHOP ASSOCIATE & PHONE: Cherelle Lyn C OFFICE ICE CREAM SHOP ASSOCIATE & PHONE: FOR SCHEDULING USE ONLY FIRST ATTEMPT Date:APR 13, 2007 Katey Valle D 09:38 a Spoke with Patient. mom APPOINTMENT DATE : 04/25/2007 ( 2:30 w/ Dr. Goldsmith) ST 04/13/07 09:44 am Referral number: [id number] documented in this encounter Plan of Treatment Upcoming Encounters Date Type Department Care Team (Late st Contact Info) Description 05/19/2024 9:00 AM HOOP BENDING MACHINE OPERATOR Appointment [facility] EEG [address] [place] [address] [place] [address] Rashaun Reyez MD [address] [place] [address] 06/05/2024 8:30 AM HOOP BENDING MACHINE OPERATOR Appointment [facility] [address] [place] [address] [place] [address] Rashaun Reyez MD [address] [place] [address] 08/09/2024 4:00 PM CDT Office Visit [facility] Care [facility] 637 [facility] [address] [place] [address] Jairo Matute PA [address] [place] [address] [address] [place] [address] 01/23/2025 3:20 PM CDT Office Visit [facility] [address] [place] [address] [address] [place] [address] Rashaun Reyez MD [address] [place] [address] [address] [place] [address] 08/03/2025 8:30 AM CDT Office Visit [facility] NEUROLOGY - [facility] 5003B 621 S [facility] [address] [place] [address] Aliza Lion MD [address] [facility] [address] [place] [address] documented as of this encounter Visit Diagnoses Not on filedocumented in this encounter Care Teams Continuous Pickling Line Pickler Helper Relationship Specialty Start Date End Date Rashaun Reyez MD [address] [place] [address] [address] [place] [address] PCP - General 02/25/07 documented as of this encounter
--- OUTSIDE RECORDS SUMMARY | 2024-05-11 15:00 | XMS_ITS | Encounter Summary ---
Author Organization [facility] Address [address] [place] [address] Care Team Providers Care Web Design Specialist Name Role Phone Gadiel Majano MD Primary Care Provider Encounter Details Date Type Department Care Team (Latest Contact Info) Description 12/09/2010 Abstract [facility] ABSTRACTION Gadiel Majano MD [address] [place] [address] Social History Tobacco Use Types Packs/Day [...] st Contact Info) Description 05/19/2024 9:00 AM INTERNET DESIGNER Appointment [facility] Support Services [place] [address] [place] [address] [place] [address] Gadiel Majano MD [address] [place] [address] 06/05/2024 8:30 AM INTERNET DESIGNER [facility] [address] [place] [address] [place] [address] Gadiel Majano MD [address] [place] [address] 08/09/2024 4:00 PM CDT Office Visit [facility] [address] [place] [address] [address] [place] [address] Jairo Matute PA [address] [place] [address] [address] [place] [address] 01/23/2025 3:20 PM CDT Office Visit [facility] [address] [place] [address] [address] [place] [address] Gadiel Majano MD [address] [place] [address] [address] [place] [address] 08/03/2025 8:30 AM CDT Office Visit [facility] - [facility] 5003B [address] [facility] [address] [place] [address] Aliza Lion MD 621 [address] [facility] [address] [place] [address] documented as of this encounter Visit Diagnoses Not on filedocumented in this encounter Care Teams Web Design Specialist Relationship Specialty Start Date End Date Gadiel Majano MD [address] [place] [address] [address] [place] [address] PCP - General 02/25/07 documented as of this encounter
--- OUTSIDE RECORDS SUMMARY | 2024-05-11 15:00 | XMS_ITS | Encounter Summary ---
Author Organization [facility] Address [address] [place] [address] Care Team Providers Care Log Raft Worker Name Role Phone Gadiel Majano MD Primary Care Provider Reason for Visit * Reason Onset Date Comments Urinary Pain 10/07/2007 Encounter Details Date Type Department Care Team (Late st Contact Info) Description 10/07/2007 Telephone [facility] Internal Medicine [address] [address] Gadiel Majano MD [address] [place] [address] Urinary Pain Social History Tobacco Use Types Packs/Day Years Used Date Smoking Tobacco: Never Assessed Sex and Gender Information Value Date Recorded Sex Assigned at Not on file Gender Identity Not on file Sexual Orientation Not on file documented as of this encounter Miscellaneous Notes * Telephone Encounter - 10/07/2007 1:35 PM CDT Called pharmacy * Telephone Encounter - 10/07/2007 1:27 PM CDT Spoke with is calling back with pharmacy number * Telephone Encounter - Tabitha Gomez - 10/07/2007 12:13 PM CDT 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 Patient told her mom that she has a UTI back. Painful urination, frequency and pressure Patient forgot to get UA/culture done after finishing the last antibiotics. *She did go today to get urine test done. Mom does not think patient is sexually active(causing the problem) She is worried about her history Can you call in meds for UTI documented in this encounter Plan of Treatment Upcoming Encounters Date Type Department Care Team (Late st Contact Info) Description 05/19/2024 9:00 AM OFFENSIVE COORDINATOR Appointment [facility] S [facility] [address] [place] [phone] Gadiel Majano MD [address] [place] [address] [place] [address] 06/05/2024 8:30 AM OFFENSIVE COORDINATOR Appointment [place] [address] [place] [address] Gadiel Majano MD [address] [place] [address] 08/09/2024 4:00 PM CDT Office Visit [address] [place] [phone] Jairo Matute PA [address] [place] [address] [address] [place] [address] 01/23/2025 3:20 PM CDT Office Visit [address] [place] [address] Gadiel Majano MD [address] [place] [address] [address] [place] [address] 08/03/2025 8:30 AM CDT Office Visit [facility] 5003B [address] [facility] [address] [place] [address] Aliza Lion MD [address] [facility] [address] [place] [address] documented as of this encounter Visit Diagnoses Not on filedocumented in this encounter Care Teams Log Raft Worker Relationship Specialty Start Date End Date Gadiel Majano MD [address] [place] [address] [address] [place] [address] PCP - General 02/25/07 documented as of this encounter
--- OUTSIDE RECORDS SUMMARY | 2024-05-11 15:00 | XMS_ITS | Encounter Summary ---
Author Organization [facility] Address [address] [place] [address] Care Team Providers Care Ui Engineer Name Role Phone Gadiel Majano MD Primary Care Provider Reason for Referral * Outpatient Services (Routine) - Closed Specialty Diagnoses / Procedures Referred By Contac t Referred To Contact Ultrasound Diagnoses Abdominal pain, generalized Procedures US PELVIS + TRANSVAG NON OB Gadiel Majano MD [address] [place] [address] Referral ID Status Reason Start Date Expiration Date Visits Re quested Visits Authorized [id number] Closed 11/27/2010 11/27/2011 1 1 Reason for Visit * Reason Onset Date Comments Other 11/27/2010 Encounter Details Date Type Department Care Team (Late st Contact Info) Description 11/27/2010 Telephone [facility] Internal Medicine [address] [address] Gadiel Majano MD [address] [place] [address] Other Social History Tobacco Use Types [...] encounter Miscellaneous Notes * Telephone Encounter - Christina Rivas - 11/28/2010 3:06 PM CDT Rebecca Valerio Gave order to jason to process * Telephone Encounter - Gadiel Majano MD - 11/27/2010 12:41 PM CDT Order ultrasound email from mother documented in this encounter Plan of Treatment Upcoming Encounters Date Type Department Care Team (Late st Contact Info) Description 05/19/2024 9:00 AM WHEEL FITTER Appointment [facility] Support [facility] [address] [address] [place] [address] Gadiel Majano MD [address] [place] [address] 06/05/2024 8:30 AM WHEEL FITTER Appointment [facility] [address] [address] [place] [phone] Gadiel Majano MD [address] [place] [phone] 08/09/2024 4:00 PM CDT Office Visit [address] [place] [phone] Jairo Matute PA [address] [place] [address] [address] [place] [address] 01/23/2025 3:20 PM CDT Office Visit [address] [place] [phone] Gadiel Majano MD [address] [place] [address] [address] [place] [address] 08/03/2025 8:30 AM CDT Office Visit [facility] NEUROLOGY [facility] [place] [address] [facility] [place] [address] [place] [address] Aliza Lion MD [address] [facility] [place] [address] [place] [address] documented as of this encounter Results * US PELVIS + TRANSVAG NON OB (12/05/2010 9:02 AM CDT) Anatomical Region Laterality Modality Pelvis Ultrasound 12/05/2010 8:39 AM CDT Impressions 12/05/2010 9:19 AM CDT IMPRESSION: ??Negative ultrasound examination of the pelvis Narrative 12/05/2010 9:19 AM CDT ULTRASOUND OF THE PELVIS WITH TRANSVAGINAL EVALUATION HISTORY: Abdominal pain FINDINGS: ??TRANSABDOMINAL STUDY: ??Multiple transverse, longitudinal and oblique images of the pelvis were obtained with the bladder well distended. ??The uterus measures 6.6 x 2.0 x 3.6 cm. The endometrial echo measures 2 mm. ??The left ovary measures 1.5 x 1.8 x 1.4 cm and appears normal. ??The right ovary measures 2.9 x 2.4 x 1.2 cm and appears normal. ?? There is no evidence of free intraperitoneal fluid. TRANSVAGINAL STUDY: After the patient voided, transvaginal ultrasound was done and showed a normal uterus with a normal endometrium measuring 2 mm. ??The left ovary measures 1.2 x 1.0 x 1.4 cm and appears normal. The right ovary measures 2.2 x 3.0 x 1.0 cm and appears normal. ? Procedure Note Yady Kidd MD - 12/05/2010 ULTRASOUND OF THE PELVIS WITH TRANSVAGINAL EVALUATION HISTORY: Abdominal pain FINDINGS: TRANSABDOMINAL STUDY: Multiple transverse, longitudinal and oblique images of the pelvis were obtained with the bladder well distended. The uterus measures 6.6 x 2.0 x 3.6 cm. The endometrial echo measures 2 mm. The left ovary measures 1.5 x 1.8 x 1.4 cm and appears normal. The right ovary measures 2.9 x 2.4 x 1.2 cm and appears normal. There is no evidence of free intraperitoneal fluid. TRANSVAGINAL STUDY: After the patient voided, transvaginal ultrasound was done and showed a normal uterus with a normal endometrium measuring 2 mm. The left ovary measures 1.2 x 1.0 x 1.4 cm and appears normal. The right ovary measures 2.2 x 3.0 x 1.0 cm and appears normal. IMPRESSION IMPRESSION: Negative ultrasound examination of the pelvis Gadiel Majano MD US ORDERABLES documented in this encounter Visit Diagnoses Diagnosis Abdominal pain, generalized- Primary Abdominal pain, generalized documented in this encounter Care Teams Ui Engineer Relationship Specialty Start Date End Date Gadiel Majano MD [address] [place] [phone] PCP - General 02/25/07 documented as of this encounter
--- OUTSIDE RECORDS SUMMARY | 2024-05-11 15:00 | XMS_ITS | Encounter Summary ---
Author Organization [facility] Address [address] [place] [address] Care Team Providers Care Manager Produce Name Role Phone Gadiel Majano MD Primary Care Provider Encounter Details Date Type Department Care Team (Late Contact Info) Description 05/12/2007 Orders Only [facility] Internal Medicine [address] [address] Gadiel Majano MD [address] [place] [phone] Social History Tobacco Use Types Packs/Day Years Used Date Smoking Tobacco: Never Assessed Sex and Gender Information Value Date Recorded Sex Assigned at Not on file Gender Identity Not on file Sexual Orientation Not on file documented as of this encounter Progress Notes * Gadiel Majano MD - 10/06/2007 12:14 PM CDT TIME:04:50 pm PATIENT`S HOME PHONE: PATIENT`S WORK PHONE: PATIENT`S INSURANCE: [employer] WHO TOOK THE CALL: Cherelle Lyn C GENERAL INFORMATION FYI - Patient mother called and said they are going for a second opinion with Dr. Clark. regarding patient spine curvature SECTION 1: DOCTOR`S RESPONSE: carlos 05/12/07 at 05:00 pm documented in this encounter Plan of Treatment Upcoming Encounters Date Type Department Care Team (Late Contact Info) Description 05/19/2024 9:00 AM INFORMATICS NURSE Appointment [facility] EEG S [facility] [address] [place] [address] Gadiel Majano MD [address] [place] [phone] 06/05/2024 8:30 AM INFORMATICS NURSE Appointment [facility] S [facility] [address] [place] [address] Gadiel Majano MD [address] [place] [phone] 08/09/2024 4:00 PM CDT Office Visit [facility] Care [address], [place] [address] Jairo Matute, LISA [address] [place] [address] 01/23/2025 3:20 PM CDT Office Visit [address] [address] Gadiel Majano MD [address] [place] [phone] 08/03/2025 8:30 AM CDT Office Visit [facility] NEUROLOGY - [place] [address] [facility] [address] [place] [address] Aliza Lion MD [address] [facility] [address] [place] [address] documented as of this encounter Visit Diagnoses Not on filedocumented in this encounter Care Teams Manager Produce Relationship Specialty Start Date End Date Gadiel Majano MD [address] [place] [phone] PCP - General 02/25/07 documented as of this encounter
--- OUTSIDE RECORDS SUMMARY | 2024-05-11 15:00 | XMS_ITS | Encounter Summary ---
Author Organization [facility] Address [address] [place] [address] Care Team Providers Care Flag Signaler Name Role Phone Gadiel Majano MD Primary Care Provider [phone] Reason for Visit * Reason Onset Date Comments Provider Call 04/30/2009 Encounter Details Date Type Department Care Team (Late st Contact Info) Description 04/30/2009 Telephone [facility] Internal Medicine [address] [address] Gadiel Majano MD [address] [place] [phone] Provider Call Social History Tobacco Use Types Packs/Day Years [...] Telephone Encounter - Gadiel Majano MD - 04/30/2009 4:43 PM CST Spoke with mother SPRING STRIP INSPECTOR * Telephone Encounter - Nicol Bryson - 04/30/2009 2:47 PM CST MOTHER CONCERNED ABOUT DAUGHTER BEING CONTAGEIOUS. WANTS TO KNOW ABOUT INCUBATION PERIOD. SHE ALSO GOES & CHECKS ON HER ELDERLY PARENTS. REQ PROVIDER CALL. SPRING STRIP INSPECTOR documented in this encounter Plan of Treatment Upcoming Encounters Date Type Department Care Team (Late st Contact Info) Description 05/19/2024 9:00 AM MAINSPRING STRIP INSPECTOR Appointment [facility] EEG S [facility] [address] [place] [phone] Gadiel Majano MD [address] [place] [phone] 06/05/2024 8:30 AM MAINSPRING STRIP INSPECTOR Appointment [facility] S [facility] [address] [place] [phone] Gadiel Majano MD [address] [place] [phone] 08/09/2024 4:00 PM CDT Office Visit [facility] Care [address] [address] [place] [address] Jairo Matute, LISA [address] [place], [place] [address] [place] [address] 01/23/2025 3:20 PM CDT Office Visit [address] [place] [address] [place] [address] Gadiel Majano MD [address] [place] [address] 08/03/2025 8:30 AM CDT Office Visit [facility] NEUROLOGY - [place] B - [facility] [address] [facility] [address] [place] [address] Aliza Lion MD [address] [facility] [address] [place] [address] documented as of this encounter Visit Diagnoses Not on filedocumented in this encounter Care Teams Flag Signaler Relationship Specialty Start Date End Date Gadiel Majano MD [address] [place] [phone] PCP - General 02/25/07 documented as of this encounter
--- OUTSIDE RECORDS SUMMARY | 2024-05-11 15:00 | XMS_ITS | Encounter Summary ---
Author Organization [email or web address] [facility] Address [address] [place] [address] Care Team Providers Care Carbon Paper Interleafer Name Role Phone Gadiel Majano MD Primary Care Provider [phone] Encounter Details Date Type Department Care Team (Latest Contact Info) Description 12/09/2010 Orders Only [facility] ABSTRACTION Erwin Luevano MD [address] [facility] [address] [place] [address] Social History Tobacco Use Types Packs/Day Years [...] st Contact Info) Description 05/19/2024 9:00 AM TIP BANDING MACHINE OPERATOR Appointment [facility] Support Services EEG [address] [place] [address] [place] [address] Gadiel Majano MD [address] [place] [phone] 06/05/2024 8:30 AM TIP BANDING MACHINE OPERATOR Appointment [facility] MRI [address] [place] [address] [place] [address] Gadiel Majano MD [address] [place] [phone] 08/09/2024 4:00 PM CDT Office Visit [facility] [address] [place] [address] [address] [place] [address] Jairo Matute PA [address] [place] [address] [address] [place] [address] 01/23/2025 3:20 PM CDT Office Visit [facility] [address] [place] [address] [address] [place] [address] Gadiel Majano MD [address] [place] [address] [address] [place] [address] 08/03/2025 8:30 AM CDT Office Visit [facility] NEUROLOGY - [facility] [address]003B [address] [facility] [address] [place] [address] Aliza Lion MD [address] [facility] [address] [place] [address] documented as of this encounter Procedures Procedure Name Priority Date/Time Associated Diagnosis Comments CT UROGRAPHY Routine 07/07/2010 documented in this encounter Results * CT UROGRAPHY (07/07/2010) Anatomical Region Laterality Modality Abdomen, Pelvis Other Erwin Luevano MD CT ORDERABLES documented in this encounter Visit Diagnoses Not on filedocumented in this encounter Care Teams Carbon Paper Interleafer Relationship Specialty Start Date End Date Gadiel Majano MD [address] [place] [address] [address] [place] [address] PCP - General 02/25/07 documented as of this encounter
--- OUTSIDE RECORDS SUMMARY | 2024-05-11 15:00 | XMS_ITS | Encounter Summary ---
Author Organization [facility] Address [address] [place] [address] Care Team Providers Care Grocery Clerk Stocking Name Role Phone Gadiel Majano MD Primary Care Provider [phone] Encounter Details Date Type Department Care Team (Latest Contact Info) Description 04/20/2007 Orders Only HIS CONVERSION Conversion, History Social History Tobacco Use Types Packs/Day Years Used Date Smoking Tobacco: Never Assessed Sex and Gender Information Value Date Recorded Sex Assigned at Not on file Gender Identity Not on file Sexual Orientation Not on file documented as of this encounter Progress Notes * Conversion, History - 05/15/2008 11:06 PM PILOT CONTROL OPERATOR HELPER T CONTROL OPERATOR HELPER documented in this encounter Plan of Treatment Upcoming Encounters Date Type Department Care Team (Late st Contact Info) Description 05/19/2024 9:00 AM PILOT CONTROL OPERATOR HELPER Appointment [facility] Support Services EEG [address] [address] [place] [address] Gadiel Majano MD [address] [place] [phone] 06/05/2024 8:30 AM PILOT CONTROL OPERATOR HELPER Appointment [facility] MRI [address] [address] [place] [address] Gadiel Majano MD [address] [place] [phone] 08/09/2024 4:00 PM CDT Office Visit [facility] [address] [facility] [address] [place] [address] Jairo Matute PA [address] [place] [address] [address] [place] [address] 01/23/2025 3:20 PM CDT Office Visit [address] [place] [address] Gadiel Majano MD [address] [place] [address] [address] [place] [address] 08/03/2025 8:30 AM CDT Office Visit [facility] NEUROLOGY [facility] [address] [facility] [address] [place] [address] Aliza Lion MD [address] [facility] [address] [place] [address] documented as of this encounter Visit Diagnoses Not on filedocumented in this encounter Care Teams Grocery Clerk Stocking Relationship Specialty Start Date End Date Gadiel Majano MD [address] [place] [address] [address] [place] [phone] PCP - General 02/25/07 documented as of this encounter
--- OUTSIDE RECORDS SUMMARY | 2024-05-11 15:00 | XMS_ITS | Encounter Summary ---
Author Organization [facility] Address [address] [place] [address] Care Team Providers Care Dirt Supervisor Name Role Phone Gadiel Majano MD Primary Care Provider [phone] Reason for Referral * Eval and Treat (Routine) - Closed Specialty Diagnoses / Procedures Referred By Contac t Referred To Contact Urology Diagnoses Hematuria Recurrent UTI Gadiel Majano MD [address] [place] [phone] [place] [address] [address] Referral ID Status Reason Start Date Expiration Date V isits Requested Visits Authorized [id number] Closed Ordering Dept To Review (STL) 11/26/2010 11/27/2011 3 3 Reason for Visit * Reason Comments Side Pain left side went to er follow up Encounter Details Date Type Department Care Team (Late st Contact Info) Description 11/26/2010 11:00 AM CDT Office Visit [facility] Internal Medicine [address] [address] Gadiel Majano MD [address] [place] [address] [address] [place] [address] Abdominal pain, generalized; Hematuria; Recurrent UTI Social History Tobacco Use Types [...] Reading Time Taken Comments Blood Pressure 110/70 11/26/2010 11:18 AM CDT Pulse - - Temperature - - Respiratory Rate - - Oxygen Saturation - - Inhaled Oxygen Concentration - - Weight 70.3 kg (155 lb) 11/26/2010 11:18 AM CDT Height 166.4 cm (5' 5.5 ) 11/26/2010 11:18 AM CD T Body Mass Index 25.4 11/26/2010 11:18 AM CDT documented in this encounter Progress Notes * Gadiel Majano MD - 11/26/2010 1:01 PM CDT Subjective: TRAVON CORRAL is a 20 y.o. female. Pt in er x 2 past few days Left flank pain rad to front and lower abd Pt no dysuria No fever The patient denie dysphagia, change in bowel habits or black or bloody stools or weight loss. Ct scan, neg Lab with mild uti, hematuria Pt recent travel to [facility] [place] in September occ back pain but not riding horses now Patient Active Problem List Diagnoses Date Noted ??? Hypoglycemia, Unspecified [251.2] 04/18/2007 ??? Unspecified Backache [724.5] 03/28/2007 No current outpatient prescriptions on file prior to encounter. Allergies Allergen Reactions ??? No Known Allergies Past Medical History Diagnosis Date ??? Arthritis Past Surgical History Procedure Date ??? Pt denies relevant surgical history Family History Problem Relation Age of Onset ??? Heart Disease Mother History Substance Use Topics ??? Smoking status: Never Smoker ??? Smokeless tobacco: Never Used ??? Alcohol Use: No Review of Systems: During the review of systems, the following significant history is obtained from the patient: Constitutional: denies fevers, chills, sweats, fatigue, malaise, anorexia, weight loss Eye: denies visual disturbance, discharge, pain Ear, Nose, Mouth, Throat: denies hearing loss, [...] denies sudden changes in mood, temperature intolerance, polyuria, polydipsia, skin changes Allergy: denies hives, swelling of extremities, issues with food, episodic puritis, chronic rhinitis, recurrent cough, seasonal issues Exam/Objective: Normal Female: Blood pressure 110/70, height 5' 5.5 (1.664 m), weight 155 lb (70.308 kg). General appearance: active, alert, cooperative, no [...] grossly intact, , normal speech, normal gait. Assessment and Plan: ASSESSMENT: 1. Abdominal pain, generalized (789.07) 2. Hematuria (599.70F) AMB REFERRAL TO UROLOGY 3. Recurrent UTI (599.0Q) AMB REFERRAL TO UROLOGY Cause sx unclear Advise fluids Finish cipro Fu cx Refer urolgy Advised rn gyn eval Colonoscopy if sx persist and above consults neg Stool cx if diarrhea or other PLAN: Orders Placed This Encounter ??? Kannan alves md ([facility]) cont tramadol for now cipro Appropriate medications prescribed Appropriate patient instructions provided Follow-up as I have indicated. Medications and options explained to include common side effects. Understanding of medications, course, diagnosis, and expectations were expressed by patient/guardian. documented in this encounter Plan of Treatment Upcoming Encounters Date Type Department Care Team (Late st Contact Info) Description 05/19/2024 9:00 AM METAL SPONGE MAKING MACHINE OPERATOR Appointment [facility] EEG S [facility] [address] [place] [phone] Gadiel Majano MD [address] [place] [phone] 06/05/2024 8:30 AM METAL SPONGE MAKING MACHINE OPERATOR Appointment [facility] S [place] [address] [place] [phone] Gadiel Majano MD [address] [place] [address] 08/09/2024 4:00 PM CDT Office Visit [facility] Primary Care [address] [address] Jairo Matute PA [address] [facility] [address] [place] [address] 01/23/2025 3:20 PM CDT Office Visit [facility] Primary Care [facility] [address] [facility] [address] [place] [address] Gadiel Majano MD [address] [place] [address] [address] [place] [address] 08/03/2025 8:30 AM CDT Office Visit [facility] NEUROLOGY [facility] [address] [facility] [address] [place] [address] Aliza Lion MD [address] [facility] [address] [place] [address] Scheduled Referrals Name Type Priority Associated Diagnoses Orde r Schedule AMB REFERRAL TO UROLOGY Outpatient Referral Routine Hematuria Recurrent UTI Ordered: 11/26/2010 documented as of this encounter Visit Diagnoses Diagnosis Abdominal pain, generalized Hematuria Hematuria, unspecified Recurrent UTI Urinary tract infection, site not specified documented in this encounter Care Teams Dirt Supervisor Relationship Specialty Start Date End Date Gadiel Majano MD [address] [place] [address] [address] [place] [phone] PCP - General 02/25/07 documented as of this encounter
--- OUTSIDE RECORDS SUMMARY | 2024-05-11 15:00 | XMS_ITS | Encounter Summary ---
Author Organization [facility] Address [address] [place] [address] Care Team Providers Care Loom Fixer Name Role Phone Gadiel Majano MD Primary Care Provider Encounter Details Date Type Department Care Team (Latest Contact Info) Description 07/27/2007 Orders Only HIS CONVERSION Conversion, History Social History Tobacco Use Types Packs/Day Years Used Date Smoking Tobacco: Never Assessed Sex and Gender Information Value Date Recorded Sex Assigned at Not on file Gender Identity Not on file Sexual Orientation Not on file documented as of this encounter Progress Notes * Conversion, History - 05/23/2008 1:35 PM CONTINUOUS PICKLING LINE PICKLER INUOUS PICKLING LINE PICKLER documented in this encounter Plan of Treatment Upcoming Encounters Date Type Department Care Team (Late st Contact Info) Description 05/19/2024 9:00 AM CONTINUOUS PICKLING LINE PICKLER Appointment [facility] Support Services EEG [address] [place] [address] [place] [address] Gadiel Majano MD [address] [place] [address] 06/05/2024 8:30 AM CONTINUOUS PICKLING LINE PICKLER Appointment [facility] MRI [address] [place] [address] [address] [place] [address] Gadiel Majano MD [address] [place] [phone] 08/09/2024 4:00 PM CDT Office Visit [facility] Care [facility] [address] [facility] [address] [place] [address] Jairo Matute PA [address] [place] [address] [address] [place] [address] 01/23/2025 3:20 PM CDT Office Visit [address] [place] [address] Gadiel Majano MD [address] [place] [address] [address] [place] [address] 08/03/2025 8:30 AM CDT Office Visit [facility] NEUROLOGY [facility] 5[address]B [address] [facility] [address] [place] [address] Aliza Lion MD [address] [facility] [address] [place] [address] documented as of this encounter Visit Diagnoses Not on filedocumented in this encounter Care Teams Loom Fixer Relationship Specialty Start Date End Date Gadiel Majano MD [address] [place] [address] [address] [place] [phone] PCP - General 02/25/07 documented as of this encounter
--- OUTSIDE RECORDS SUMMARY | 2024-05-11 15:00 | XMS_ITS | Encounter Summary ---
Author Organization [facility] Address [address] [place] [address] Care Team Providers Care Sports Internship Name Role Phone Gadiel Majano MD Primary Care Provider [phone] Reason for Visit * Reason Onset Date Comments Needs Orders Written 01/15/2011 Encounter Details Date Type Department Care Team (Late st Contact Info) Description 01/15/2011 Telephone [facility] Internal Medicine [address] [address] Gadiel Majano MD [address] [place] [address] Needs Orders Written Social History Tobacco [...] encounter Miscellaneous Notes * Telephone Encounter - Mackenzie Bustamante - 01/15/2011 10:55 AM CDT Called and L/M for mom * Telephone Encounter - Gadiel Majano MD - 01/15/2011 10:52 AM CDT ? That is a dangerous situation if she thinks that she should go stj er and have proper eval * Telephone Encounter - Mackenzie Bustamante - 01/15/2011 8:40 AM CDT Pt mother called she thinks daughter has a tubal she would like blood test done she did take a urine test it was a negative also would like a referral of a name to a DAIRY ASSOCIATE with [facility]. She will be using [facility] documented in this encounter Plan of Treatment Upcoming Encounters Date Type Department Care Team (Late st Contact Info) Description 05/19/2024 9:00 AM FRONT CLERK Appointment [facility] EEG [address] [place] [address] [place] [address] Gadiel Majano MD [address] [place], [place] [phone] 06/05/2024 8:30 AM FRONT CLERK Appointment [facility] [address] [place] [address] [place] [phone] Gadiel Majano MD [address] [place] [address] [address] [place] [address] 08/09/2024 4:00 PM CDT Office Visit [facility] Care [address] [place] [address] Jairo Matute PA [address] [place] [address] [address] [place] [address] 01/23/2025 3:20 PM CDT Office Visit [address] [place] [address] Gadiel Majano MD [address] [place] [address] [address] [place] [address] 08/03/2025 8:30 AM CDT Office Visit [facility] NEUROLOGY - [facility] [address] [facility] [address] [place] [address] Aliza Lion MD [address] [facility] [address] [place] [address] documented as of this encounter Visit Diagnoses Not on filedocumented in this encounter Care Teams Sports Internship Relationship Specialty Start Date End Date Gadiel Majano MD [address] [facility] [address] [place] [address] PCP - General 02/25/07 documented as of this encounter
--- OUTSIDE RECORDS SUMMARY | 2024-05-11 15:00 | XMS_ITS | Encounter Summary ---
Author Organization [facility] Address [address] [place] [address] Care Team Providers Care Dope Heater Name Role Phone Gadiel Majano MD Primary Care Provider [phone] Encounter Details Date Type Department Care Team ([facility] Contact Info) Description 03/28/2007 Outpatient Historical [facility] Internal Medicine [address] [phone] Gadiel Majano MD [address] [place] [address] Social History Tobacco Use Types Packs/Day Years Used Date Smoking Tobacco: Never Assessed Sex and Gender Information Value Date Recorded Sex Assigned at Not on file Gender Identity Not on file Sexual Orientation Not on file documented as of this encounter Last Filed Vital Signs Vital Sign Reading Time Taken Comments Blood Pressure 110/70 03/28/2007 4:15 PM TITLE I INSTRUCTIONAL ASSISTANT Pulse - - Temperature 36.1 ??C (97 ??F) 03/28/2007 4:15 PM TITLE I INSTRUCTIONAL ASSISTANT Respiratory Rate - - Oxygen Saturation - - Inhaled Oxygen Concentration - - Weight 61.7 kg (136 lb) 03/28/2007 4:15 PM TITLE I INSTRUCTIONAL ASSISTANT Height - - Body Mass Index - - documented in this encounter Plan of Treatment Upcoming Encounters Date Type Department Care Team (Late Contact Info) Description 05/19/2024 9:00 AM TITLE I INSTRUCTIONAL ASSISTANT Appointment [facility] EEG [address] [place] [address] [place] [address] Gadiel Majano MD [address] [place] [address] [place] [phone] 06/05/2024 8:30 AM TITLE I INSTRUCTIONAL ASSISTANT Appointment [facility] [address] [place] [address] Gadiel Majano MD [address] [place] [address] [address] [place] [address] 08/09/2024 4:00 PM CDT Office Visit [facility] [address] [place] [address] [address] [place] [address] Jairo Matute PA [address] [place] [address] [address] [place] [address] 01/23/2025 3:20 PM CDT Office Visit [address] [place] [address] Gadiel Majano MD [address] [place] [address] [address] [place] [address] 08/03/2025 8:30 AM CDT Office Visit [facility] NEUROLOGY - [facility] 5003[address] [facility] [address] [place] [address] Aliza Lion MD [address] [facility] [address] [place] [address] documented as of this encounter Visit Diagnoses Not on filedocumented in this encounter Care Teams Dope Heater Relationship Specialty Start Date End Date Gadiel Majano MD [address] [place] [address] [address] [place] [phone] PCP - General 02/25/07 documented as of this encounter
--- OUTSIDE RECORDS SUMMARY | 2024-05-11 15:00 | XMS_ITS | Encounter Summary ---
Author Organization [facility] Address [address] [place] [address] Care Team Providers Care Bus And Trolley Dispatcher Name Role Phone Gadiel Majano MD Primary Care Provider Reason for Visit * Reason Onset Date Comments Urinary Frequency 10/14/2007 Encounter Details Date Type Department Care Team (Late st Contact Info) Description 10/14/2007 Telephone [facility] Internal Medicine [address] [address] Gadiel Majano MD [address] [place] [address] Urinary Frequency Social History Tobacco Use Types Packs/Day Years Used Date Smoking Tobacco: Never Assessed Sex and Gender Information Value Date Recorded Sex Assigned at Not on file Gender Identity Not on file Sexual Orientation Not on file documented as of this encounter Miscellaneous Notes * Telephone Encounter - Nicol Bryson - 10/14/2007 2:45 PM CDT SPOKE W/ MOTHER. CALLED PHARMACY & DR FAXED SCRIPT TO PHARM. MOTHER WANTS TO SPEAK TO DAUGHTER RE PERSUING A DR. WOULD PREFER A FEMALE UROLOGIST AFFILIATED W/ [facility]. SHE'LL CALL BACK NEXT WEEK & STILL NEEDS A REFERRAL. * Telephone Encounter - Gadiel Majano MD - 10/14/2007 2:32 PM CDT Refer [facility]--urologist Ok try med Please notify Dasia resendiz now --can call her much later if she still needs * Telephone Encounter - Nicol Bryson - 10/14/2007 2:23 PM CDT SPOKE TO MOTHER. SHE SAID YOU TOLD HER THAT A URINE CULTURE COULDN'T BE DONE WHEN PT ON AN ANTIBIOTIC. SAYS SHE DOESN'T TRUST AN URGENT CARE CT. DOESN'T WANT HER TO GO THROUGH A LONG WEEKEND IN PAIN.WAS HOPING YOU WOULD JUST CALL IN AN ANTIBIOTIC UNTIL YOU CAN SEE HER FOR AN OV NEXT WEEK. WAS ALSO WONDERING IF MAYBE PT SHOULD BE REF TO A . SHE [facility] UR[facility] PROBLE[facility] SINCE SHE WAS A BABY. WANTS TO SPEAK WITH YOU. CELL # [phone]. * Telephone Encounter - Nicol Bryson - 10/14/2007 1:43 PM CDT LM FOR MOM AT WORK (SHE'S ON A CONFERENCE CALL.) * Telephone Encounter - Gadiel Majano MD - 10/14/2007 1:27 PM CDT Will need to go er or urgent care then, will need repeat urine and culture before can determine rx--it is long weekend * Telephone Encounter - Nicol Bryson - 10/14/2007 1:23 PM CDT PT HAS 1 PILL OF THE ANTIBIOTIC LEFT. URINARY SYMPTOMS WORSE TODAY. PT IS HAVING URINARY FREQUENCY & PAIN. 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 IF SHE MISSES ANYMORE SCHOOL HER MOM HAS TO GO B/4 THE SCHOOL BOARD. NEXT STEP. documented in this encounter Plan of Treatment Upcoming Encounters Date Type Department Care Team (Late st Contact Info) Description 05/19/2024 9:00 AM CYBER SECURITY MANAGER Appointment [facility] EEG [facility] [address] [place] [address] Gadiel Majano MD [address] [place] [address] [place] [address] 06/05/2024 8:30 AM CYBER SECURITY MANAGER Appointment [facility] S [facility] [address] [place] [address] Gadiel Majano MD [address] [place] [address] 08/09/2024 4:00 PM CDT Office Visit [address] [place] [address] Jairo Matute, LISA [address] [place], [place] [address]A [place] [address] 01/23/2025 3:20 PM CDT Office Visit [place] [address] [place] [address] Gadiel Majano MD [address] [place] [address] [place] [address] 08/03/2025 8:30 AM CDT Office Visit [facility] - [facility] [address] [facility] [address] [place] [address] Aliza Lion MD [address] [facility] [address] [place] [address] documented as of this encounter Visit Diagnoses Not on filedocumented in this encounter Care Teams Bus And Trolley Dispatcher Relationship Specialty Start Date End Date Gadiel Majano MD [address] [place] [address] PCP - General 02/25/07 documented as of this encounter
--- OUTSIDE RECORDS SUMMARY | 2024-05-11 15:00 | XMS_ITS | Encounter Summary ---
Author Organization [facility] Address [address] [place] [address] Care Team Providers Care Strand Buncher Fine Wire Name Role Phone Gadiel Majano MD Primary Care Provider [phone] Reason for Visit * Reason Comments Cough Sore Throat Fever Encounter Details Date Type Department Care Team (Late st Contact Info) Description 04/30/2009 9:00 AM TILE FINISHER Office Visit [facility] Internal Medicine [address] [address] Gadiel Majano MD [address] [place] [address] Acute Sinusitis; OM (Otitis Media) Social History Tobacco Use Types Packs/Day Years [...] Sign Reading Time Taken Comments Blood Pressure 120/70 04/30/2009 8:52 AM TILE FINISHER Pulse - - Temperature 36.7 ??C (98.1 ??F) 04/30/2009 8:52 AM CS T Respiratory Rate - - Oxygen Saturation - - Inhaled Oxygen Concentration - - Weight 69.9 kg (154 lb) 04/30/2009 8:52 AM TILE FINISHER Height - - Body Mass Index - - documented in this encounter Progress Notes * Gadiel Majano MD - 04/30/2009 9:08 AM CST Sinus congestion cough , fever x 3 days Fever better this am Foot getting better The patient appears alert, well appearing, and in no distress.- bilateral TM fluid noted and pharynx erythematous without exudate., Chest:clear to auscultation, no wheezes, rales or rhonchi, symmetric air entry. Heart sounds are normal. Abdomen soft, nontender, no masses or organomegaly. ASSESSMENT: Encounter Diagnoses Name Primary? Acute Sinusitis ??? OM (Otitis Media) PLAN: Orders Placed This Encounter ??? Cefuroxime axetil 250 mg tab Risk of side effects of antibiotics reviewed, call if diarrhea rash, facial swelling or other. FINISHER documented in this encounter Plan of Treatment Upcoming Encounters Date Type Department Care Team (Late st Contact Info) Description 05/19/2024 9:00 AM TILE FINISHER Appointment [facility] [place] [address] [place] [address] Gadiel Majano MD [address] [place] [phone] 06/05/2024 8:30 AM TILE FINISHER Appointment [facility] [address] [place] [address] [place] [address] Gadiel Majano MD [address] [place], [place] [address] 08/09/2024 4:00 PM CDT Office Visit [address] [phone] Jairo Matute PA [address] [place] [address] 01/23/2025 3:20 PM [place] [address] Gadiel Majano MD [address] [place] [address] [place] [phone] 08/03/2025 8:30 AM CDT Office Visit [facility] NEUROLOGY - [facility] 5003B [address] [facility] [address] [place] [address] Aliza Loin MD [address] [facility] [address] [place] [address] documented as of this encounter Visit Diagnoses Diagnosis Acute sinusitis Acute sinusitis, unspecified OM (otitis media) Unspecified otitis media documented in this encounter Care Teams Strand Buncher Fine Wire Relationship Specialty Start Date End Date Gadiel Majano MD [address] [place] [address] [place] [phone] PCP - General 02/25/07 documented as of this encounter
--- OUTSIDE RECORDS SUMMARY | 2024-05-11 15:00 | XMS_ITS | Encounter Summary ---
Author Organization [facility] Address [address] [place] [address] Care Team Providers Care White Sugar Supervisor Name Role Phone Rashaun Reyez MD Primary Care Provider [phone] Encounter Details Date Type Department Care Team (Late st Contact Info) Description 03/28/2007 Orders Only [facility] Internal Medicine [address] [address] Rashaun Reyez MD [address] [place] [address] Social History Tobacco Use Types Packs/Day Years Used Date Smoking Tobacco: Never Assessed Sex and Gender Information Value Date Recorded Sex Assigned at Not on file Gender Identity Not on file Sexual Orientation Not on file documented as of this encounter Progress Notes * Rashaun Reyez MD - 10/06/2007 4:17 PM CDT CENTRAL TEST SCHEDULING DATE: MAR 28, 2007 Note created by: Gretel Tanner E 04:47 p Patient Name : TRAVON M SHAYNA Address: [address] [place] [address] [place]. [address] D.O.B: 1990 SSN: [id number] Parent/Guardian if applicable: Patient Insurance: [employer] ID#: [id number] Group#: ORDER(S) #: [id number] mri t spine BEST TO CALL CELL. [phone] BEST TIME TO CALL: ANYTIME. MAY WE LEAVE MESSAGE AT THAT NUMBER: YES, LEAVE MESSAGE. PLEASE SCHEDULE THE APPOINTMENT AT THE FOLLOWING LOCATION: [facility]. TEST PRIORITY: 2 - 7 DAYS. SPECIAL SCHEDULING INSTRUCTIONS: need prep ORDERING PHYSICIAN: RASHAUN REYEZ MD OFFICE LENS GRINDER ROUGH & PHONE: Gretel Tanner E ORDER PRINTED BY: APR 04, 2007 Katrina Sorensen K 12:26 p FOR SCHEDULING USE ONLY: FIRST ATTEMPT Date:APR 04, 2007 Katrina Sorensen K 12:38 p Spoke with Patient. PT'S MOTHER CALLED TO SCHED APPT. APR 04, 2007 Katrina Sorensen K 12:39 p [facility]. APPOINTMENT DATE : 04/11/2007 ( 4:15 PM) The appointment was scheduled by Katrina Sorensen K at [phone] APR 04, 2007 Katrina Sorensen K 12:39 p Pre-authorization number: [facility] #[id number] exp 05/06/07 Given/Authorized by: per fax ([facility]) FINAL ACTION Follow up completed. * Rashaun Reyez MD - 10/06/2007 4:17 PM CDT SPECIALIST REFERRAL REQUEST DATE: MAR 28, 2007 Note created by: Cherelle Lyn C 04:52 p Patient Name : TRAVON SAM Address: [address] [place] [address] [address] [place]. [address] D.O.B: 1990 SSN: [id number] Parent/Guardian if applicable: Dasia Patient Insurance: [employer] PL[employer] Policy#: [id number] Group #: Best To Call : [phone].[phone] Best Time to Call : ANYTIME. May We Leave Message At That Number : YES, LEAVE MESSAGE. Referring to: Dr. Devin Scruggs [phone] [facility] OR PT in [facility] [phone] whichever the pt wants HOLD ON REFERRAL PT TO SEE ORTHO PAIN MANAGEMENT PATIENT DIAGNOSIS: . 724.5-BACK PAIN ORDERING PHYSICIAN : RASHAUN REYEZ MD PRIORITY OF REFERRAL: AT PATIENT'S CONVENIENCE. OFFICE LENS GRINDER ROUGH & PHONE: Cherelle Lyn C FOR SCHEDULING USE ONLY FIRST ATTEMPT Date:MAR 30, 2007 Katey Valle D 11:12 a Spoke with Patient. Mom SECOND ATTEMPT: Date:APR 11, 2007 Soumya Mary 11:26 a Left Message on Recorder.LM on cell # LETTER SENT: Date APR 11, 2007 Aminata Falcon A 01:11 p Letter sent to patient 04/12/07 ADDITIONAL CRS COMMENTS: Date MAR 30, 2007 Katey Valle D 11:[address] Scruggs does not take [facility] insurance. Can you advise another pain management Dr? try PT first--can try [facility] ADDITIONAL OFFICE COMMENTS: Date APR 12, 2007 Cherelle Lyn C 02:56 p called patient and left message to call office changed referral for patient to Try Physical Therapy at [facility] first as stated above. [facility] PH [phone] Mom (Dasia) says cancel this request. Seeing a doctor at [facility] Please close to history after review Thanks * Rashaun Reyez MD - 10/06/2007 4:17 PM CDT WEIGHT: 136lbs BLOOD PRESSURE: 110/70 Right Arm Sitting TEMPERATURE: 97??f Oral NURSE NAME: Yesenia Plaza R TOBACCO USE Patient does not currently use tobacco. CHIEF COMPLAINT follow up back pain. also c/o vomiting. HISTORY: HISTORY: 724.5-BACK PAIN Upper back pain 2-3 years, no specific injury, x rays negative, failed 2-3 mo PT 2/7, 3/7, failed Chiropractor improvement x 2 mo.no help with mattress change, pain occ severe. 009.0-GASTROENTERITIS n, v 1 day yesterday, better now PHYSICAL EXAMINATION: CONSTITUTIONAL: GENERAL APPEARANCE: Healthy appearing patient in no distress. NECK/THYROID: Trachea midline. No thyroid enlargement, tenderness, or mass. No supraclavicular or cervical adenopathy. RESPIRATORY: Clear to auscultation and percussion. Normal respiratory effort. CARDIOVASCULAR: CARDIAC: Regular rhythm. No murmurs, rubs, or gallops. ARTERIAL: No aortic bruits. EDEMA/VARICOSITIES OF EXTREMITIES: No edema or varicosities. GASTROINTESTINAL: ABDOMEN: Soft, non-tender, without masses. Bowel sounds active. LIVER/SPLEEN/KIDNEY: No hepatosplenomegaly, tenderness or nodularity. Kidneys not palpable. MUSCULOSKELETAL EXAM: ana m tender t spine ASSESSMENT/PLAN: 724.5-BACK PAIN discussed at length failed multiple rx, try rehab md, check mri reassess LAB ORDERS: Order number: [id number] Test Ordered: MRI TSPINE 009.0-GASTROENTERITIS bland diet , no dairy reasess if sx recur SPECIALTY REFERRAL: Jimi Scruggs PREVENTIVE COUNSELING The patient was counseled regarding proper methods of lifting for the prevention of low back pain. avoid riding for now Patient Education: The patient was allowed to ask questions to stated satisfaction.mother RETURN VISIT : Instructed to call if not improving. Electronically Signed by: Rashaun Reyez MD on Wednesday, March 28, 2007 documented in this encounter Plan of Treatment Upcoming Encounters Date Type Department Care Team (Late st Contact Info) Description 05/19/2024 9:00 AM BUYERS' AGENT Appointment [facility] Support Services EEG [address] [place] [address] [place] [address] Rashaun Reyez MD [address] [place] [address] 06/05/2024 8:30 AM BUYERS' AGENT Appointment [facility] [place] [address] [place] [address] Rashaun Reyez MD [address] [place] [phone] 08/09/2024 4:00 PM CDT Office Visit [facility] [address] [facility] [place] [address] [place] [phone] Jairo Matute, LISA [address] [place] [address] [address] [place] [address] 01/23/2025 3:20 PM CDT Office Visit [facility] [address] [place] [address] [address] [place] [address] Rashaun Reyez MD [address] [place] [address] [address] [place] [address] 08/03/2025 8:30 AM CDT Office Visit [facility] NEUROLOGY [facility] 5003B [address] [facility] [address] [place] [address] Aliza Lion MD [address] [facility] [address] [place] [address] documented as of this encounter Visit Diagnoses Not on filedocumented in this encounter Care Teams White Sugar Supervisor Relationship Specialty Start Date End Date Rashaun Reyez MD [address] [place] [address] [address] [place] [address] PCP - General 02/25/07 documented as of this encounter
--- OUTSIDE RECORDS SUMMARY | 2024-05-11 15:00 | XMS_ITS | Encounter Summary ---
Author Organization [facility] Address [address] [place] [address] Care Team Providers Care Line Person Name Role Phone Gadiel Majano MD Primary Care Provider Encounter Details Date Type Department Care Team (Late st Contact Info) Description 04/21/2007 Outpatient Historical [facility] Gadiel Majano MD [address] [place] [address] Social History Tobacco Use Types Packs/Day Years Used Date Smoking Tobacco: Never Assessed Sex and Gender Information Value Date Recorded Sex Assigned at Not on file Gender Identity Not on file Sexual Orientation Not on file documented as of this encounter Plan of Treatment Upcoming Encounters Date Type Department Care Team (Late Contact Info) Description 05/19/2024 9:00 AM ITEM REPAIR MANAGER Appointment [facility] Support Services EEG [address] [place] [address] [place] [address] Gadiel Majano MD [address] [place] [address] 06/05/2024 8:30 AM ITEM REPAIR MANAGER Appointment [facility] MRI [address] [place] [address] [place] [address] Gadiel Majano MD [address] [place] [address] 08/09/2024 4:00 PM CDT Office Visit [facility] Care [facility] [address] [facility] [address] [place] [address] Jairo Matute PA [address] [place] [address] [address] [place] [address] 01/23/2025 3:20 PM CDT Office Visit [facility] [address] [place] [address] [address] [place] [address] Gadiel Majano MD [address] [place] [address] [address] [place] [address] 08/03/2025 8:30 AM CDT Office Visit [facility] NEUROLOGY - [facility] 5003B [address] [facility] [address] [place] [address] Aliza Lion MD [address] [facility] [address] [place] [address] documented as of this encounter Visit Diagnoses Not on filedocumented in this encounter Care Teams Line Person Relationship Specialty Start Date End Date Gadiel Majano MD [address] [place] [address] [address] [place] [address] PCP - General 02/25/07 documented as of this encounter
--- OUTSIDE RECORDS SUMMARY | 2024-05-11 15:00 | XMS_ITS | Encounter Summary ---
Author Organization [facility] Address [address] [place] [address] Care Team Providers Care Engineering Technology Instructor Name Role Phone Gadiel Majano MD Primary Care Provider [phone] Reason for Visit * Reason Comments Sore Throat Nasal Congestion Encounter Details Date Type Department Care Team (Late st Contact Info) Description 02/28/2008 3:45 PM CDT Office Visit [facility] Internal Medicine [address] [address] Gadiel Majano MD [address] [place] [phone] UTI (Primary Dx); Acute Sinusitis, Unspecified Social History Tobacco Use Types Packs/Day Years [...] Reading Time Taken Comments Blood Pressure 102/70 02/28/2008 4:04 PM CDT Pulse - - Temperature 36.6 ??C (97.9 ??F) 02/28/2008 4:04 PM CD T Respiratory Rate - - Oxygen Saturation - - Inhaled Oxygen Concentration - - Weight 63.5 kg (140 lb) 02/28/2008 4:04 PM CDT Height - - Body Mass Index - - documented in this encounter Progress Notes * Gdaiel Majano MD - 02/28/2008 5:11 PM CDT 10d sinus cristi sore throat Still with rec uti's--has appt with specialist The patient appears alert, well appearing, and in no distress.- bilateral TM fluid noted and pharynx erythematous without exudate., Chest:clear to auscultation, no wheezes, rales or rhonchi, symmetric air entry. Heart sounds are normal. Abdomen soft, nontender, no masses or organomegaly. ASSESSMENT: Encounter Diagnoses Name Primary? UTI Yes ??? Acute Sinusitis, Unspecified PLAN: Orders Placed This Encounter ??? Urinalysis with reflex culture ??? Azithromycin 250 mg tab ??? Nitrofurantoin (25% macrocrystal form) 100 mg cap-to hold if needed documented in this encounter Plan of Treatment Upcoming Encounters Date Type Department Care Team (Late st Contact Info) Description 05/19/2024 9:00 AM BELLY DANCER Appointment [facility] [address] [address] [place] [phone] Gadiel Majano MD [address] [place] [address] 06/05/2024 8:30 AM BELLY DANCER Appointment [facility] MRI [address] [address] [place] [phone] Gadiel Majano MD [address] [place] [address] [address] [place] [phone] 08/09/2024 4:00 PM CDT Office Visit [address] [place] [address] Jairo Matute PA [address] [place] [address] [address] [place] [address] 01/23/2025 3:20 PM CDT Office Visit [facility] Care [facility] [address] [facility] [address] [place] [address] Gadiel Majano MD 637 [facility] [address] [place] [address] 08/03/2025 8:30 AM CDT Office Visit [facility] NEUROLOGY - [place] - [facility] 5003B [address] [facility] [address] [place] [address] Aliza Lion MD [address] [facility] [address] [place] [address] documented as of this encounter Procedures Procedure Name Priority Date/Time Associated Diagnosis Comments URINALYSIS WITH REFLEX CULTURE Routine 03/15/2008 2:00 PM CDT UTI documented in this encounter Results * URINALYSIS WITH REFLEX CULTURE (03/15/2008 2:00 PM CDT) COLOR UA TNP/240 [facility] Comment: * ?? TEST NOT PERFORMED. ?* * ?? AN ELECTRONIC TEST REQUEST ?? * * ?? WAS TRANSMITTED TO [facility] ? * * ?? DIAGNOSTICS, BUT NO SPECIMEN * * ?? WAS RECEIVED. ?* SEE NOTE SEE NOTE [facility] Comment: THIS URINE WAS EXAMINED MICROSCOPICALLY FOR THE PRESENCE OF WBC, RBC, BACTERIA, CASTS AND OTHER FORMED ELEMENTS. ??ONLY THOSE ELEMENTS SEEN WERE REPORTED. NO COLLECTION DATE RECEIVED. WE HAVE USED THE DATE THE SPECIMEN WAS RECEIVED BY THIS LABORATORY THE COLLECTION DATE. IF THIS IS INCORRECT, PLEASE CONTACT CLIENT SERVICES. PHONE NUMBER: [phone] Test Performed at: [facility] [address] [place], [place] ??[address] BROOK ARMANDO MD Urine, clean catch Gadiel Majano MD URINE ORDERABLES INTERFACE SYSTEM Refer to clinic/hospital department [facility] [address] [place] [address] documented in this encounter Visit Diagnoses Diagnosis UTI- Primary Urinary tract infection, site not specified Acute sinusitis, unspecified documented in this encounter Care Teams Engineering Technology Instructor Relationship Specialty Start Date End Date Gadiel Majano MD [address] [place] [address] PCP - General 02/25/07 documented as of this encounter
--- OUTSIDE RECORDS SUMMARY | 2024-05-11 15:00 | XMS_ITS | Encounter Summary ---
Author Organization [facility] Address [address] [place] [address] Care Team Providers Care Family Court Justice Name Role Phone Gadiel Majano MD Primary Care Provider [phone] Reason for Visit * Reason Comments Hip Pain ER follow up, shooti ng pain/numbness/tingling right leg, feels like hip is out of joint Encounter Details Date Type Department Care Team (Late st Contact Info) Description 02/21/2009 4:00 PM CDT Office Visit [facility] Internal Medicine [address] [phone] Katey Nash NP [address] [place] [phone] Right Hip Pain (Primary Dx); Sciatica Social History Tobacco Use Types Packs/Day [...] Reading Time Taken Comments Blood Pressure 110/80 02/21/2009 4:41 PM CDT Pulse - - Temperature - - Respiratory Rate - - Oxygen Saturation - - Inhaled Oxygen Concentration - - Weight 73.5 kg (162 lb) 02/21/2009 4:41 PM CDT Height - - Body Mass Index - - documented in this encounter Progress Notes * Katey Nash NP - 02/21/2009 5:04 PM CDT HISTORY OF PRESENT ILLNESS TRAVON CORRAL, a 18 y.o. female. HPI On Wednesday night thought right hip popped and she had excruciating pain when stepping on right leg. Right hip feels a little better now but wants to get it checked. Sees chiropractor for lower back and says, I think my hip needs to be popped back in . REVIEW OF SYSTEMS Review of Systems Constitutional: Negative. Respiratory: Negative. Cardiovascular: Negative. Genitourinary: Negative. Musculoskeletal: Positive for back pain and joint pain. Right hip pain. Neurological: Positive for tingling. Negative for dizziness. Numbness and tingling that radiates down to right knee. Endo/Heme/Allergies: Negative. Psychiatric/Behavioral: Negative. PHYSICAL EXAM BP 110/80 Wt 162 lb (73.483 kg) Physical Exam Constitutional: She is oriented. She appears well-developed and well-nourished. HENT: Head: Normocephalic and atraumatic. Eyes: Pupils are equal, round, and reactive to light. Neck: Normal range of motion. Neck supple. Cardiovascular: Normal rate and regular rhythm. Pulmonary/Chest: Effort normal and breath sounds normal. Musculoskeletal: She exhibits tenderness. Right hip-lower back. Neurological: She is alert and oriented. She displays normal reflexes. No cranial nerve deficit. She exhibits normal muscle tone. Coordination normal. Skin: Skin is warm and dry. Psychiatric: She has a normal mood and affect. ASSESSMENT and PLAN: Right hip pain Sciatica-will consider medrol dose pack if symptoms continue. X-ray right hip/hemipelvis Possible lumbar spine impingement May need MRI of lumbar spine. documented in this encounter Plan of Treatment Upcoming Encounters Date Type Department Care Team (Late st Contact Info) Description 05/19/2024 9:00 AM TAX COMPLIANCE REPRESENTATIVE Appointment [employer] EEG [address] [place] [address] [place] [phone] Gadiel Majano MD [address] [place] [phone] 06/05/2024 8:30 AM TAX COMPLIANCE REPRESENTATIVE Appointment [facility] S [facility] [address] [facility] [place] [phone] Gadiel Majano MD [address] [place] [address] [address] [place] [phone] 08/09/2024 4:00 PM CDT Office Visit [facility] Care [address] [place] [phone] Jairo Matute PA [address] [place] [address] [address] [place] [address] 01/23/2025 3:20 PM CDT Office Visit [address] [place] [address] Gadiel Majano MD [address] [place] [address] [address] [place] [address] 08/03/2025 8:30 AM CDT Office Visit [facility] NEUROLOGY - [facility] [address] [facility] [address] [place] [address] Aliza Lion MD [address] [facility] [address] [place] [address] documented as of this encounter Results * XR HIP 2+ VW RIGHT (02/22/2009) Anatomical Region Laterality Modality Lower Extremity Right Other Katey Nash CAREER SERVICES MANAGER DIAGNOSTIC IMAGING O RDERABLES documented in this encounter Visit Diagnoses Diagnosis Right Hip Pain- Primary Pain in joint, pelvic region and thigh Sciatica documented in this encounter Care Teams Family Court Justice Relationship Specialty Start Date End Date Gadiel Majano MD [address] [place] [address] [address] [place] [address] PCP - General 02/25/07 documented as of this encounter
--- OUTSIDE RECORDS SUMMARY | 2024-05-11 15:00 | XMS_ITS | Encounter Summary ---
Author Organization [email or web address] Address [address] [place] [address] Care Team Providers Care Air Traffic Control Operator Name Role Phone Gadiel Majano MD Primary Care Provider [phone] Reason for Referral * Outpatient Services (Routine) - Closed Specialty Diagnoses / Procedures Referred By Contac t Referred To Contact Ultrasound Diagnoses Abdominal pain, generalized Procedures US PELVIS + TRANSVAG NON Gadiel Mcgovern MD [address] [place] [phone] Referral ID Status Reason Start Date Expiration Date Visits Re quested Visits Authorized [id number] Closed 11/27/2010 11/27/2011 1 1 Reason for Visit * Outpatient Services (Routine) - Closed Specialty Diagnoses / Procedures Referred By Contac t Referred To Contact Ultrasound Diagnoses Abdominal pain, generalized Procedures US PELVIS + TRANSVAG NON Gadiel Mcgovern MD [address] [place] [phone] Referral ID Status Reason Start Date Expiration Date Visits Re quested Visits Authorized [id number] Closed 11/27/2010 11/27/2011 1 1 Encounter Details Date Type Department Care Team (Latest Contact Info) Description 12/05/2010 8:25 AM CDT - 12/05/2010 11:59 PM CDT Hospital Encounter [facility] Ultrasound [address] [place] [address] [place] [address] Gadiel Majano MD [address] [place] [phone] Discharge Disposition: Home or Self Care [...] as of this encounter Miscellaneous Notes * Scanned Form - Stl Scanning, Him - 12/10/2010 3:14 PM CDT documented in this encounter Plan of Treatment Upcoming Encounters Date Type Department Care Team (Late st Contact Info) Description 05/19/2024 9:00 AM HOME FURNISHINGS SALES REPRESENTATIVE Appointment [facility] EEG [address] [place] [address] [place] [phone] Gadiel Majano MD [address] [place] [phone] 06/05/2024 8:30 AM HOME FURNISHINGS SALES REPRESENTATIVE Appointment [facility] [address] [place] [address] [place] [phone] Gadiel Majano MD [address] [place] [phone] 08/09/2024 4:00 PM CDT Office Visit [facility] Care [address] [phone] Jairo Matute PA [address] [place] [address] [address] [place] [address] 01/23/2025 3:20 PM CDT Office Visit [address] [address] Gadiel Majano MD [address] [place] [address] [place] [phone] 08/03/2025 8:30 AM CDT Office Visit [facility] NEUROLOGY - [place] - [place] [address] [facility] [place] [address] [place] [address] Aliza Lion MD [address] [facility] [address] [place] [address] documented as of this encounter Procedures Procedure Name Priority Date/Time Associated Diagnosis Comments US PELVIS + TRANSVAG NON OB Routine 12/05/2010 9:02 AM CDT Abdominal pain, generalized documented in this encounter Results * US PELVIS + [...] examination of the pelvis Gadiel Majano MD ORDERABLES documented in this encounter Visit Diagnoses Diagnosis Abdominal pain, generalized documented in this encounter Care Teams Air Traffic Control Operator Relationship Specialty Start Date End Date Gadiel Majano MD [address] [place] [phone] PCP - General 02/25/07 documented as of this encounter
--- OUTSIDE RECORDS SUMMARY | 2024-05-11 15:00 | XMS_ITS | Encounter Summary ---
Author Organization [facility] Address [address] [place] [address] Care Team Providers Care Cannoneer Name Role Phone Gadiel Majano MD Primary Care Provider Encounter Details Date Type Department Care Team (Late st Contact Info) Description 04/22/2007 Orders Only [facility] Internal Medicine [address] [address] Gadiel Majano MD [address] [place] [address] Social History Tobacco Use Types Packs/Day Years Used Date Smoking Tobacco: Never Assessed Sex and Gender Information Value Date Recorded Sex Assigned at Not on file Gender Identity Not on file Sexual Orientation Not on file documented as of this encounter Progress Notes * Gadiel Majano MD - 10/06/2007 8:14 PM CDT WHO TOOK THE CALL: Gadiel Majano M TIME:11:38 am echo ok lab all stable--sugar stable --notify mom joey pickering pablo 04/22/07 02:14 pm STAFF FOLLOW UP: Spoke with patient and gave the following message. jrf *She has had 2 episodes of passing out and seizure this year. All tests negative. What should she do next? Mom thought she should move around more in the morning? Is she ok to drive now? no further tests, regular meals as discussed, adequate hydration, ok to drive--reassess if recurs 04-22-2:29 spoke to mom. Joey. jrf Electronically Signed by: Tabitha Gomez on Sunday, April 22, 2007 documented in this encounter Plan of Treatment Upcoming Encounters Date Type Department Care Team (Late st Contact Info) Description 05/19/2024 9:00 AM EXCELSIOR CUTTER Appointment [facility] EEG S [facility] [address] [place] [phone] Gadiel Majano MD [address] [place] [address] [place] [address] 06/05/2024 8:30 AM EXCELSIOR CUTTER Appointment [facility] S [facility] [address] [place] [address] Gadiel Majano MD [address] [place] [phone] 08/09/2024 4:00 PM CDT Office Visit [facility] Care [address] [place] [address] Jairo Matute, LISA [address] [place], [place] [address] [address] 01/23/2025 3:20 PM CDT Office Visit [place] [address] [place] [address] Gadiel Majano MD [address] [place] [address] [address] [place] [address] 08/03/2025 8:30 AM CDT Office Visit [facility] NEUROLOGY - [place] - [place] [address] [facility] [address] [place] [address] Aliza Lion MD [address] [facility] [address] [place] [address] documented as of this encounter Visit Diagnoses Not on filedocumented in this encounter Care Teams Cannoneer Relationship Specialty Start Date End Date Gadiel Majano MD [address] [place] [phone] PCP - General 02/25/07 documented as of this encounter
--- OUTSIDE RECORDS SUMMARY | 2024-05-11 15:00 | XMS_ITS | Encounter Summary ---
Author Organization [facility] Address [address] [place] [address] Care Team Providers Care Spar Cap Beveler Name Role Phone Gadiel Majano MD Primary Care Provider Encounter Details Date Type Department Care Team (Late st Contact Info) Description 02/25/2007 Orders Only [facility] Internal Medicine [address] [address] Gadiel Majano MD [address] [place] [phone] Social History Tobacco Use Types Packs/Day Years Used Date Smoking Tobacco: Never Assessed Sex and Gender Information Value Date Recorded Sex Assigned at Not on file Gender Identity Not on file Sexual Orientation Not on file documented as of this encounter Progress Notes * Gadiel Majano MD - 10/07/2007 10:26 AM CDT WEIGHT: 134lbs BLOOD PRESSURE: 110/70 Right Arm Sitting TEMPERATURE: 36.28??c Oral NURSE NAME: Yesenia Plaza R TOBACCO USE Patient does not currently use tobacco. CHIEF COMPLAINT Seen as a new patient to get established with the practice. c/o flank pain and difficulty urinating. HISTORY: HISTORY: 789.07-ABDOMINAL PAIN GENERALIZED with difficulty urinating seen by sales and marketing director Wednesday, UA neg, ongoing intermittent right flank pain since 10 last night was in tears with severe knife like pain better now , no meds used, still feels difficulty urinating, hx of ureter problem as child, mother with kidney stones.on menses, denies sexual activity. ROS: GENERAL: Normal activity and energy level, no change in appetite. No major weight gain or loss. No malaise, chills, fever, diaphoresis. ALLERGIC/IMMUNOLOGIC: No hay fever or history of environmental allergies. No chronic problems with immunity. EYES: No vision changes or diplopia. ENT: No hearing loss, epistaxis, hoarseness or dysphagia. No sinus congestion. ENDOCRINE: No heat or cold intolerance, no excessive thirst. CARDIAC: No chest pain, palpitations, orthopnea, dyspnea on exertion, or paroxysmal nocturnal dyspnea. RESPIRATORY: No dyspnea, cough, hemoptysis or wheezing. SKIN/BREAST/CHEST: No rashes or non-healing lesions. No breast symptoms noted. HEMATOLOGIC/LYMPHATIC: No anemia, easy bruising, bleeding or swollen nodes. : HAVING PAIN UPON URINATION. GI: No abdominal pain, nausea, vomiting, diarrhea, constipation, melena, or hematochezia. NEUROLOGIC: HAS EPISODES OF FAINTING. Last time was in May 2006 MUSCULOSKELETAL: COMPLAINS OF A BACKACHE. PSYCHIATRIC: No increased nervousness, mood changes or depression. Coping well. PAST MEDICAL HISTORY: MEDICAL: Reflux Rt. Kidney, UTI SURGICAL: Tonsils and adenoids. CURRENT MEDICATIONS: Patient is currently on no medication. ALLERGIES/ADVERSE REACTIONS: No known drug allergies. FAMILY HISTORY: mother Dasia Pickering FATHER: The father is living. No major illnesses are known. MOTHER: The mother is living. MVP SIBLINGS: 1) The patient's brother is living. Illnesses: Hodgkin's lymphoma. SOCIAL HISTORY: MARITAL HISTORY: Single. LIVING WILL: The patient does not have a living will. TOBACCO USE: Has no significant smoking history. 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 ALCOHOL: Does not give any significant history of alcohol usage. CAFFEINE: A minimal amount of caffeinated beverages daily. EXERCISES: The patient exercises. DIET: Follows no specific diet. PHYSICAL EXAMINATION: CONSTITUTIONAL: GENERAL APPEARANCE: Healthy appearing patient in no distress. EARS, NOSE, MOUTH AND THROAT: EARS: Tympanic [...] ABDOMEN: Soft, non-tender, without masses. Bowel sounds active.vague rlq tender, vague right flank tender LIVER/SPLEEN/KIDNEY: No hepatosplenomegaly, tenderness or nodularity. Kidneys not palpable. SKIN: SKIN: Warm, dry, no diaphoresis, no significant lesions, irritation, rashes or ulcers. No induration, obvious subcutaneous nodules or tightening. OFFICE PROCEDURES: URINALYSIS RESULTS WBC: WBC`s were negative. NITRITE: nitrites were negative. UROBILINOGEN urobilinogen was normal. PROTEIN: protein was negative. pH: pH was 7. U/A BLOOD: blood was hem-trace. SPECIFIC GRAVITY: specific gravity was 1.015. KETONES: ketones were negative. BILIRUBIN: bilirubin was negative. GLUCOSE: glucose was negative. ASSESSMENT/PLAN: 789.07-ABDOMINAL PAIN GENERALIZED pain intermittent severe, ua some bld but on menses, dx unclear, sx severe last night, proceed with ct abd----r/o kidney stone, appendix, etc.. MEDICATIONS: VICODIN ORAL TABLET 5-500 MG, 1 Every Six Hours, As Needed, 40 Dispensed, status: NEW PRESCRIPTION,02/25/2007. CIPRO ORAL TABLET 500 MG, 1 Two Times A Day, 14 Dispensed, status: NEW PRESCRIPTION, 02/25/2007. LAB ORDERS: Order number: [id number] Test Ordered: CT ABDOMEN & PELVIS W/O CONSTRAST r/o stone, appendix, ovary CT returned neg, fill cipro med if needed, ER if sx worsen over weekend advised, fu environmental health aide for pablo webber , spoke with mother REQUESTING OLD RECORDS: I am requesting old records. RETURN VISIT : Instructed to call if not improving. Electronically Signed by: Gadiel Majano MD on Sunday, February 25, 2007 documented in this encounter Plan of Treatment Upcoming Encounters Date Type Department Care Team (Late st Contact Info) Description 05/19/2024 9:00 AM HEALTH MANAGEMENT CONSULTANT Appointment [facility] [employer] [facility] EEG [address] [place] [address] [place] [address] Gadiel Majano MD [address] [place] [phone] 06/05/2024 8:30 AM HEALTH MANAGEMENT CONSULTANT Appointment [facility] S [facility] [address] [place] [address] Gadiel Majano MD [address] [place] [address] 08/09/2024 4:00 PM CDT Office Visit [facility] Care [address] [address] Jairo Matute PA [address] [place] [address] 01/23/2025 3:20 PM CDT Office Visit [address] [address] Gadiel Majano MD [address] [place] [address] 08/03/2025 8:30 AM CDT Office Visit [facility] NEUROLOGY - [place] - [facility] 5003B [address] [facility] [address] [place] [address] Aliza Lion MD [address] [facility] [address] [place] [address] documented as of this encounter Visit Diagnoses Not on filedocumented in this encounter Care Teams Spar Cap Beveler Relationship Specialty Start Date End Date Gadiel Majano MD [address] [place] [phone] PCP - General 02/25/07 documented as of this encounter
--- OUTSIDE RECORDS SUMMARY | 2024-05-11 15:00 | XMS_ITS | Encounter Summary ---
Author Organization [facility] Address [address] [facility] Attn: [place] [address] Care Team Providers Care Telecommunications Switch Technician Name Role Phone Gadiel Majano MD Primary Care Provider [phone] Encounter Details Date Type Department Care Team (Latest Contact Info) Description 04/21/2007 Orders Only Conversion, History Social History Tobacco Use Types Packs/Day Years Used Date Smoking Tobacco: Never Assessed Sex and Gender Information Value Date Recorded Sex Assigned at Not on file Gender Identity Not on file Sexual Orientation Not on file documented as of this encounter Progress Notes * Conversion, History - 05/14/2008 10:47 AM SMOCKING MACHINE OPERATOR KING MACHINE OPERATOR * Conversion, History - 05/08/2008 3:39 PM SMOCKING MACHINE OPERATOR KING MACHINE OPERATOR * Conversion, History - 07/23/2007 8:28 AM SMOCKING MACHINE OPERATOR KING MACHINE OPERATOR documented in this encounter Plan of Treatment Upcoming Encounters Date Type Department Care Team (Late st Contact Info) Description 05/19/2024 9:00 AM SMOCKING MACHINE OPERATOR Appointment [facility] Support Services [address] [place] [address] [address] [place] [address] Gadiel Majano MD [address] [place] [address] 06/05/2024 8:30 AM SMOCKING MACHINE OPERATOR Appointment [facility] [address] [place] [address] [place] [address] Gadiel Majano MD [address] [place] [address] [address] [place] [address] 08/09/2024 4:00 PM CDT Office Visit [facility] [address] [place] [address] [address] [place] [address] Jairo Matute PA [address] [place] [address] [address] [place] [address] 01/23/2025 3:20 PM CDT Office Visit [address] [place] [address] Gadiel Majano MD [address] [place] [address] [address] [place] [address] 08/03/2025 8:30 AM CDT Office Visit [facility] NEUROLOGY - [place] - [place] [address] [facility] [address] [place] [address] Aliza Lion MD [address] [facility] [address] [place] [address] documented as of this encounter Visit Diagnoses Not on filedocumented in this encounter Care Teams Telecommunications Switch Technician Relationship Specialty Start Date End Date Gadiel Majano MD [address] [place] [address] [address] [place] [address] PCP - General 02/25/07 documented as of this encounter
--- OUTSIDE RECORDS SUMMARY | 2024-05-11 15:00 | XMS_ITS | Encounter Summary ---
Author Organization [facility] Address [address] [place] [address] Care Team Providers Care Pattern Cleaner Name Role Phone Gadiel Majano MD Primary Care Provider [phone] Encounter Details Date Type Department Care Team ([facility] [place] Contact Info) Description 02/25/[address] [facility] Internal Medicine [address] [address] Gadiel Majano MD [address] [place] [address] Social History Tobacco Use Types Packs/Day Years Used Date Smoking Tobacco: Never Assessed Sex and Gender Information Value Date Recorded Sex Assigned at Not on file Gender Identity Not on file Sexual Orientation Not on file documented as of this encounter Last Filed Vital Signs Vital Sign Reading Time Taken Comments Blood Pressure 110/70 02/25/2007 11:45 AM CDT Pulse - - Temperature 36.3 ??C (97.3 ??F) 02/25/2007 11:45 AM C DT Respiratory Rate - - Oxygen Saturation - - Inhaled Oxygen Concentration - - Weight 60.8 kg (134 lb) 02/25/2007 11:45 AM CDT Height - - Body Mass Index - - documented in this encounter Plan of Treatment Upcoming Encounters Date Type Department Care Team (Late Contact Info) Description 05/19/2024 9:00 AM RN HEMODIALYSIS Appointment [facility] Services EEG [address] [place] [address] [place] [address] Gadiel Majano MD [address] [place] [address] [address] [place] [phone] 06/05/2024 8:30 AM RN HEMODIALYSIS Appointment [facility] S [facility] [address] [place] [address] Gadiel Majano MD [address] [place] [address] [address] [place] [address] 08/09/2024 4:00 PM CDT Office Visit [address] [place] [address] Jairo Matute PA [address] [place] [address] [address] [place] [address] 01/23/2025 3:20 PM CDT Office Visit [address] [place] [phone] Gadiel Majano MD [address] [place] [address] [address] [place] [address] 08/03/2025 8:30 AM CDT Office Visit [facility] NEUROLOGY - [place] - [place] [address] [facility] [address] [place] [address] Aliza Lion MD [address] [facility] [address] [place] [address] documented as of this encounter Visit Diagnoses Not on filedocumented in this encounter Care Teams Pattern Cleaner Relationship Specialty Start Date End Date Gadiel Majano MD [address] [place] [address] [address] [place] [phone] PCP - General 02/25/07 documented as of this encounter
--- OUTSIDE RECORDS SUMMARY | 2024-05-11 15:00 | XMS_ITS | Encounter Summary ---
Author Organization [facility] Address [address] [place] [address] Care Team Providers Care Block Cableman Name Role Phone Gadiel Majano MD Primary Care Provider [phone] Reason for Visit * Reason Onset Date Comments Referral 04/26/2009 Encounter Details Date Type Department Care Team (Late st Contact Info) Description 04/26/2009 Telephone [facility] Internal Medicine [address] [address] Gadiel Majano MD [address] [place] [address] Referral Social History Tobacco Use Types Packs/Day Years [...] Telephone Encounter - Gadiel Majano MD - 04/26/2009 11:06 AM CST ok RDER HELPER GRAVITY PROSPECTING * Telephone Encounter - Christina Rivas - 04/26/2009 10:01 AM CST Crs called patient and no contact made- letter sent by crs- please advise if ok to close referral request to solar energy sales specialist RDER HELPER GRAVITY PROSPECTING documented in this encounter Plan of Treatment Upcoming Encounters Date Type Department Care Team (Late st Contact Info) Description 05/19/2024 9:00 AM RECORDER HELPER GRAVITY PROSPECTING Appointment [facility] EEG S [facility] [address] [place] [address] Gadiel Majano MD [address] [place] [address] [address] [place] [address] 06/05/2024 8:30 AM RECORDER HELPER GRAVITY PROSPECTING Appointment [facility] S [facility] [address] [facility] [place] [address] Gadiel Majano MD [address] [place] [address] [address] [place] [address] 08/09/2024 4:00 PM CDT Office [facility] [address] [place] [address] Jairo Matute, LISA [address] [place] [address] [address] [place] [address] 01/23/2025 3:20 PM CDT Office Visit [address] [place] [address] Gadiel Majano MD [address] [place] [address] [address] [place] [address] 08/03/2025 8:30 AM CDT Office Visit [facility] NEUROLOGY - [place] - [place] [address] [facility] [address] [place] [address] Aliza Lion MD [address] [facility] [address] [place] [address] documented as of this encounter Visit Diagnoses Not on filedocumented in this encounter Care Teams Block Cableman Relationship Specialty Start Date End Date Gadiel Majano MD [address] [place] [address] PCP - General 02/25/07 documented as of this encounter
--- OUTSIDE RECORDS SUMMARY | 2024-05-11 15:00 | XMS_ITS | Encounter Summary ---
Author Organization [facility] Address [address] [place] [address] Care Team Providers Care Towing Pilot Name Role Phone Gadiel Majano MD Primary Care Provider [phone] Reason for Visit * Reason Onset Date Comments Letter for School/Work 09/21/2007 Encounter Details Date Type Department Care Team (Late st Contact Info) Description 09/21/2007 Telephone [facility] Internal Medicine [address] [address] Gadiel Majano MD [address] [place] [address] Letter for School/Work Social History Tobacco Use Types Packs/Day Years Used Date Smoking Tobacco: Never Assessed Sex and Gender Information Value Date Recorded Sex Assigned at Not on file Gender Identity Not on file Sexual Orientation Not on file documented as of this encounter Miscellaneous Notes * Telephone Encounter - Nicol Bryson - 09/21/2007 3:39 PM CDT NOTE FAXED TO SCHOOL. * Telephone Encounter - Gadiel Majano MD - 09/21/2007 2:57 PM CDT Ok excuse for illness --send note * Telephone Encounter - Nicol Bryson - 09/21/2007 1:55 PM CDT ONE OF THE TEACHERS AT [employer] SAYS SHE'S BEEN OUT OF SCHOOL TOO MUCH. SHE NEEDS A SCHOOL EXCUSE FOR 09/19/07 & 05/26/07. FAX TO SCHOOL [phone] ATT ATTENDANCE OFFICE. documented in this encounter Plan of Treatment Upcoming Encounters Date Type Department Care Team (Late st Contact Info) Description 05/19/2024 9:00 AM FAST FOODS WORKER Appointment [facility] [place] [address] [place] [address] Gadiel Majano MD [address] [place], [place] [phone] 06/05/2024 8:30 AM FAST FOODS WORKER Appointment [facility] S [facility] [place] [address] [place] [address] Gadiel Majano MD [address] [place] [phone] 08/09/2024 4:00 PM CDT Office Visit [facility] [address] [address] Jairo Matute PA [address] [place] [phone] 01/23/2025 3:20 [place] [address] Gadiel Majano MD [address] [place], [place] [phone] 08/03/2025 8:30 AM CDT Office Visit [facility] NEUROLOGY [facility] - [facility] [address] [facility] [address] [place] [address] Aliza Lion MD [address] [facility] [address] [place] [address] documented as of this encounter Procedures Procedure Name Priority Date/Time Associated Diagnosis Comments URINALYSIS WITH REFLEX CULTURE Routine 10/09/2007 2:00 AM CDT URINE CULTURE Routine 10/07/2007 12:13 PM CDT documented in this encounter Results * (ABNORMAL) URINALYSIS WITH REFLEX CULTURE (10/09/2007 2:00 AM CDT) COLOR UA ORANGE(A) YELLOW [facility] CLARITY UA CLOUDY(A) CLEAR [facility] SPECIFIC GRAVITY UA 1.005 1.001 - 1.[address] [facility] PH UA 6.0 5.0 - 8.[address] [facility] GLUCOSE UA NEGATIVE NEGATIVE [facility] BILIRUBIN UA NEGATIVE NEGATIVE [facility] KETONES UA NEGATIVE NEGATIVE [facility] BLOOD UA NEGATIVE NEGATIVE [facility] PROTEIN UA NEGATIVE NEGATIVE [facility] NITRITE UA POSITIVE(A) NEGATIVE [facility] LEUKOCYTE ESTERASE UA 2+(A) NEGATIVE [facility] WBC UA 10-20(A) < OR = 5 /HPF [facility] RBC UA 0-3 < OR = 3 /HPF [facility] EPITHELIAL CELLS, URINE 0-5 < OR = 5 /HPF [facility] BACTERIA UA FEW(A) NONE SEEN /HPF [facility] HYALINE CAST NONE SEEN NONE SEEN /LPF [facility] Comment: Test Performed at: [facility] [address] [place], [place] ??[address] BROOK ARMANDO MD Gadiel Majano MD URINE ORDERABLES [facility] [address] [place] [address] * URINE CULTURE (10/07/2007 12:13 PM CDT) URINE CULTURE SEE NOTE [facility] Comment: ??CULTURE, URINE, ROUTINE ??MICRO NUMBER: ?[id number] ??TEST STATUS: ? FINAL ??SPECIMEN SOURCE: ?? URINE ??SPECIMEN COMMENTS: ADEQUATE ??RESULT: ?MULTIPLE ORGANISMS PRESENT, EACH LESS THAN 10,000 ? CFU/ML. THESE ORGANISMS, COMMONLY FOUND ON ? EXTERNAL AND INTERNAL GENITALIA, ARE CONSIDERED ? TO BE COLONIZERS. NO FURTHER TESTING PERFORMED. Test Performed at: [facility] ??[address] BROOK ARMANDO MD 10/07/2007 12:1 3 PM CDT 10/08/2007 5:28 AM CDT Gadiel Majano MD MICROBIOLOGY - GENER AL ORDERABLES Performing Organization Address City/State/[facility] Co de Phone Number [employer] [facility] [address] [place] [address] documented in this encounter Visit Diagnoses Not on filedocumented in this encounter Care Teams Towing Pilot Relationship Specialty Start Date End Date Gadiel Majano MD [address] [place] [address] [place] [address] PCP - General 02/25/07 documented as of this encounter
--- OUTSIDE RECORDS SUMMARY | 2024-05-11 15:00 | XMS_ITS | Encounter Summary ---
Author Organization [facility] Address [address] [place] [address] Care Team Providers Care Automat Car Attendant Name Role Phone Gadiel Majano MD Primary Care Provider [phone] Encounter Details Date Type Department Care Team (Latest Contact Info) Description 04/25/2007 Orders Only HIS CONVERSION Conversion, History Social History Tobacco Use Types Packs/Day Years Used Date Smoking Tobacco: Never Assessed Sex and Gender Information Value Date Recorded Sex Assigned at Not on file Gender Identity Not on file Sexual Orientation Not on file documented as of this encounter Progress Notes * Conversion, History - 05/15/2008 10:20 AM TOURISM RADIO PRESENTER ISM RADIO PRESENTER documented in this encounter Plan of Treatment Upcoming Encounters Date Type Department Care Team (Late st Contact Info) Description 05/19/2024 9:00 AM TOURISM RADIO PRESENTER Appointment [facility] Support Services EEG [address] [place] [address] [place] [address] Gadiel Majano MD [address] [place] [address] 06/05/2024 8:30 AM TOURISM RADIO PRESENTER Appointment [facility] MRI [address] [place] [address] [place] [address] Gadiel Majano MD [address] [place] [phone] 08/09/2024 4:00 PM CDT Office Visit [facility] Care [facility] [address] [facility] [address] [place] [address] Jairo Matute PA [address] [place] [address] [address] [place] [address] 01/23/2025 3:20 PM CDT Office Visit [address] [place] [address] Gadiel Majano MD [address] [place] [address] [address] [place] [address] 08/03/2025 8:30 AM CDT Office Visit [facility] NEUROLOGY [facility] [address]B [address] [facility] [address] [place] [address] Aliza Lion MD [address] [facility] [address] [place] [address] documented as of this encounter Visit Diagnoses Not on filedocumented in this encounter Care Teams Automat Car Attendant Relationship Specialty Start Date End Date Gadiel Majano MD [address] [place] [address] [address] [place] [phone] PCP - General 02/25/07 documented as of this encounter
--- OUTSIDE RECORDS SUMMARY | 2024-05-11 15:00 | XMS_ITS | Encounter Summary ---
Author Organization [facility] Address [address] [place] [address] Care Team Providers Care Agricultural Extension Specialist Name Role Phone Gadiel Majano MD Primary Care Provider Encounter Details Date Type Department Care Team ([facility] Contact Info) Description 04/18/2007 Outpatient Historical [facility] Internal Medicine [address] [phone] Gadiel Majano MD [address] [place] [address] Social History Tobacco Use Types Packs/Day Years Used Date Smoking Tobacco: Never Assessed Sex and Gender Information Value Date Recorded Sex Assigned at Not on file Gender Identity Not on file Sexual Orientation Not on file documented as of this encounter Last Filed Vital Signs Vital Sign Reading Time Taken Comments Blood Pressure 100/60 04/18/2007 11:15 AM FAMILY MEDICINE CHAIR Pulse - - Temperature 36.1 ??C (97 ??F) 04/18/2007 11:15 AM FAMILY MEDICINE CHAIR Respiratory Rate - - Oxygen Saturation - - Inhaled Oxygen Concentration - - Weight 61.7 kg (136 lb) 04/18/2007 11:15 AM FAMILY MEDICINE CHAIR Height - - Body Mass Index - - documented in this encounter Plan of Treatment Upcoming Encounters Date Type Department Care Team (Late Contact Info) Description 05/19/2024 9:00 AM FAMILY MEDICINE CHAIR Appointment [facility] EEG [address] [place] [address] [place] [address] Gadiel Majano MD [address] [place] [address] [place] [phone] 06/05/2024 8:30 AM FAMILY MEDICINE CHAIR Appointment [facility] S [facility] [address] [place] [address] Gadiel Majano MD [address] [place] [address] [address] [place] [address] 08/09/2024 4:00 PM CDT Office Visit [facility] [address] [place] [address] [address] [place] [address] Jairo Matute PA [address] [place] [address] [address] [place] [address] 01/23/2025 3:20 PM CDT Office Visit [address] [place] [address] Gadiel Majano MD [address] [place] [address] [address] [place] [address] 08/03/2025 8:30 AM CDT Office Visit [facility] - [place] B - [facility] 5003B [address] [facility] [address] [place] [address] Aliza Lion MD [address] [facility] [address] [place] [address] documented as of this encounter Visit Diagnoses Not on filedocumented in this encounter Care Teams Agricultural Extension Specialist Relationship Specialty Start Date End Date Gadiel Majano MD [address] [place] [address] [address] [place] [phone] PCP - General 02/25/07 documented as of this encounter
--- OUTSIDE RECORDS SUMMARY | 2024-05-11 15:12 | XMS_ITS | Encounter Summary ---
Author Organization [facility] Address [address] [place] [address] Care Team Providers Care Customer Account Specialist Name Role Phone Unavailable Primary Care Provider Unavailabl e Encounter Details Date Type Department Care Team (Late st Contact Info) Description 11/17/2019 Lab Requisition [facility] [address] [facility] [place], [place] [address] [place] [address] [place] [address] Social History Tobacco Use Types Packs/Day Years [...] CDT) Case Report Dermatopathology Report ? Case: [id number] ? Authorizing Provider: ??Nano Cohen MD ?? [...] determined by the Dermatopathology Laboratory at [facility], directed by Dr. Rima Hackett. These tests need not be, and therefore are not, approved by the [place] Food and Drug Administration. The tests are used for clinical purposes. Billing Codes Specimen Charges Stain Charges 78293 52683 37569 1 1 1 0 3:03 PM CDT [...] LAB - PATHOLOGY/C YTOLOGY ORDERABLES DERMATOPATHOLOGY LABORATORY [facility] - Department of Dermatology Independent Video Producer Center/[facility] [employer] [phone] documented in this encounter Visit Diagnoses Not on filedocumented in this encounter
--- OUTSIDE RECORDS SUMMARY | 2024-05-11 15:12 | XMS_ITS | Referral Summary ---
Author Organization [facility] Address [address] [facility] [place] [address] Care Team Providers Care Information Technology Advisor Name Role Phone Unavailable Primary Care Provider Unavailabl e Source Comments [facility],non-owned Affiliates and Associated Physician Practices is amultiple site organization consisting of ambulatory clinics and hospital sitesin [place], [place], [place] and [place]. This disclosure is being madepursuant to the Care Everywhere program and may not contain all information available regarding this patient. Last updated 18.[facility] Social History Tobacco Use Types Packs/Day Years Used Date Smoking Tobacco: Never Assessed Sex and Gender Information Value Date Recorded Sex Assigned at Not on file Gender Identity Not on file Sexual Orientation Not on file Plan of Treatment Not on file
--- OUTSIDE RECORDS SUMMARY | 2024-05-11 15:12 | XMS_ITS | Clinical Summary ---
Author Organization [facility] Address [address] [facility] [place] [address] Care Team Providers Care Philosophy Faculty Member Name Role Phone Unavailable Primary Care Provider Unavailabl e Source Comments [facility],non-owned Affiliates and Associated Physician Practices is amultiple site organization consisting of ambulatory clinics and hospital sitesin [place], [place], [place] and [place]. This disclosure is being madepursuant to the Care Everywhere program and may not contain all information available regarding this patient. Last updated 18.[facility] Executive Caddie Social History Tobacco Use Types Packs/Day Years [...] age [place] [address] NINO MARISCAL Personal/Famil y Other [address] [facility] [address]
--- OUTSIDE RECORDS SUMMARY | 2024-05-11 15:12 | XMS_ITS | Patient Health Summary ---
Author Organization [facility] Address [address] [place] [address] Care Team Providers Care Farm Loan Representative Name Role Phone Unavailable Primary Care Provider Unavailabl e Note from [facility],non-owned Affiliates and Associated Physician Practices is amultiple site organization consisting of ambulatory clinics and hospital sitesin [place], [place], [place] and [place]. This disclosure is being madepursuant to the Care Everywhere program and may not contain all information available regarding this patient. Last updated 18.[facility] Social History Tobacco Use Types Packs/Day Years Used Date Smoking Tobacco: Never Assessed Sex and Gender Information Value Date Recorded Sex Assigned at Not on file Gender Identity Not on file Sexual Orientation Not on file Procedures * DERMATOPATHOLOGY(Performed 11/16/2019) Results * DERMATOPATHOLOGY (11/16/2019 12:00 AM CDT) Case Report Dermatopathology Report ? Case: [id number] ? Authorizing Provider: ??Nano Cohen MD ?? Collected: ? 11/16/2019 12:00 AM ? Ordering Location: ? [facility] ?Received: ?11/17/2019 02:38 [...] characteristic determined by the Dermatopathology Laboratory at [facility], directed by Dr. Rima Hackett. These tests need not be, and therefore are not, approved by the [place] Food and Drug Administration. The tests are used for clinical purposes. Billing Codes Specimen Charges Stain Charges 84957 26801 47251 1 1 1 0 3:03 PM CDT [...] LAB - PATHOLOGY/C YTOLOGY ORDERABLES DERMATOPATHOLOGY LABORATORY [facility] - Department of Dermatology Chair Frame Builder [place]/[address] [phone]
--- OUTSIDE RECORDS SUMMARY | 2024-05-11 15:13 | XMS_ITS | Encounter Summary ---
Author Organization [facility] Address [address] [place] [address] Care Team Providers Care Disk Grinder Name Role Phone Gadiel Majano MD Primary Care Provider [phone] Encounter Details Date Type Department Care Team (Late Contact Info) Description 02/16/2017 Orders Only [facility] [address] [address] Gadiel Majano MD [address] [place] [address] Routine general medical examination at a [...] st Contact Info) Description 05/19/2024 9:00 AM HAND PACKER Appointment [facility] [address] [place] [address] Gadiel Majano MD [address] [place] [address] 06/05/2024 8:30 AM HAND PACKER Appointment [facility] [address] [address] [place] [address] [place] [address] Gadiel Majano MD [address] [place] [address] [address] [place] [address] 08/09/2024 4:00 PM CDT Office Visit [facility] [address] [place] [address] [address] [place] [address] Jairo Matute PA [address] [place] [address] [address] [place] [address] 01/23/2025 3:20 PM CDT Office Visit [facility] [address] [place] [address] Gadiel Majano MD [address] [place] [address] [address] [place] [address] 08/03/2025 8:30 AM CDT Office Visit [facility] - [place] - [address] [facility] [address] [place] [address] Aliza Lion MD [address] [facility] [address] [place] [address] documented as of this encounter Procedures Procedure Name Priority Date/Time Associated Diagnosis Comments CBC WITH DIFFERENTIAL Routine 02/15/2017 8:26 AM CDT VITAMIN D 25 HYDROXY Routine 02/15/2017 8:26 AM CDT TSH Routine 02/15/2017 8:26 AM CDT HEMOGLOBIN A1C Routine 02/15/2017 8:26 AM CDT VITAMIN B12 LEVEL Routine 02/15/2017 8:2 6 AM CDT CORTISOL LEVEL Routine 02/15/2017 8:26 AM CDT LIPID PANEL Routine 02/15/2017 8:26 AM CDT COMPREHENSIVE METABOLIC PANEL Routine 02/15/2017 8:26 AM CDT CBC WITH DIFFERENTIAL Routine 02/15/2017 Routine general medical examination at a health care facility documented in this encounter Results * VITAMIN B12 LEVEL (02/15/2017 8:26 AM CDT) VITAMIN B12 491 211 - 946 pg/mL [facility] 02/15/2017 8:26 AM CDT 02/15/2017 Narrative [facility] - 02/16/2017 7:11 AM CDT Performed at: ??01 - [address] ??[id number] Technology Administrator: Сергей Oliveira PhD, Phone: ??[phone] Gadiel Majano MD CHEMISTRY ORDERABLES [facility] * VITAMIN D 25 HYDROXY (02/15/2017 8:26 AM CDT) VITAMIN D 25 HYDROXY 32.6 30.0 - 100.0 ng/mL [facility] Comment: Vitamin D deficiency has been defined by the [place] of Medicine and an Endocrine Society practice guideline as a level of serum 25-OH vitamin D less than 20 ng/mL (1,2). The Endocrine Society went on to further define vitamin D insufficiency as a level between 21 and 29 ng/mL (2). 1. IOM ([place] of Medicine). 2010. Dietary reference ?? intakes for calcium and D. [place]: The ?? National Academies Press. 2. Alexandra MF, Paresh NC, Lisha MADRIGAL, et al. ?? Evaluation, treatment, and prevention of vitamin D ?? deficiency: an Endocrine Society clinical practice ?? guideline. JCEM. 2010; 96(8):1911-30. 02/15/2017 8:26 AM CDT 02/15/2017 Narrative [facility] - 02/16/2017 7:11 AM CDT Performed at: ??01 - [facility] ??[id number] Technology Administrator: Сергей Oliveira PhD, Phone: ??[phone] Gadiel Majano MD CHEMISTRY ORDERABLES Performing Organization Address [facility] Co de Phone Number [facility] * TSH (02/15/2017 8:26 AM CDT) TSH 1.390 0.450 - 4.500 uIU/mL [facility] 02/15/2017 8:26 AM CDT 02/15/2017 Narrative [facility] - 02/16/2017 7:11 AM CDT Performed at: ??01 - [address] ??[id number] Technology Administrator: Сергей Oliveira PhD, Phone: ??[phone] Gadiel Majano MD CHEMISTRY ORDERABLES Performing Organization Address [facility] de Phone Number [facility] * CORTISOL LEVEL (02/15/2017 8:26 AM CDT) CORTISOL LEVEL 10.0 ug/dL [facility] Comment: ?Cortisol AM ? 6.2 - 19.4 ?Cortisol PM ? 2.3 - 11.9 02/15/2017 8:26 AM CDT 02/15/2017 Narrative [facility] - 02/16/2017 7:11 AM CDT Performed at: ??01 - [address] ??[id number] Technology Administrator: Сергей Oliveira PhD, Phone: ??[phone] Gadiel Majano MD CHEMISTRY ORDERABLES Performing Organization Address [facility] Co de Phone Number [facility] * HEMOGLOBIN A1C (02/15/2017 8:26 AM CDT) [facility] HEMOGLOBIN A1C 5.1 4.8 - 5.6 % [facility] Comment: ? Pre-diabetes: 5.7 - 6.4 ? Diabetes: >6.4 ? Glycemic control for adults with diabetes: <7.0 02/15/2017 8:26 AM CDT 02/15/2017 Narrative [facility] - 02/16/2017 7:11 AM CDT Performed at: ??01 - [address] ??[id number] Technology Administrator: Сергей Oliveira PhD, Phone: ??[phone] Gadiel Majano MD CHEMISTRY ORDERABLES Performing Organization Address [facility] de Phone Number [facility] * LIPID PANEL (02/15/2017 8:26 AM CDT) [facility] RESULT Comment [facility] Comment: Component Name: [employer] Default A hand-written panel/profile was received from your office. In accordance with the [facility] Ambiguous Test Code Policy dated November 2002, we have completed your order by using the closest currently or formerly recognized AMA panel. ??We have assigned Lipid Panel, Test Code #[id number] to this request. If this is not the testing you wished to receive on this specimen, please contact the [facility] Client Inquiry/Technical Services Department to clarify the test order. ??We appreciate your business. 02/15/2017 8:26 AM CDT 02/15/2017 Narrative [facility] - 02/16/2017 7:11 AM CDT Performed at: ??01 - [address] ??[id number] Technology Administrator: Сергей Oliveira PhD, Phone: ??[phone] Gadiel Majano MD CHEMISTRY ORDERABLES Performing Organization Address [facility] de Phone Number [facility] * COMPREHENSIVE METABOLIC PANEL (02/15/2017 8:26 AM CDT) COMMENT Comment [facility] Comment: A hand-written panel/profile was received from your office. In accordance with the [facility] Ambiguous Test Code Policy dated November 2002, we have completed your order by using the closest currently or formerly recognized AMA panel. ??We have assigned Comprehensive Metabolic Panel (14), Test Code #[id number] to this request. ??If this is not the testing you wished to receive on this specimen, please contact the [facility] Client Inquiry/Technical Services Department to clarify the test order. ??We appreciate your business. 02/15/2017 8:26 AM CDT 02/15/2017 Narrative [facility] - 02/16/2017 7:11 AM CDT Performed at: ??01 - [address] ??[id number] Technology Administrator: Сергей Oliveira PhD, Phone: ??[phone] Gadiel Majano MD CHEMISTRY ORDERABLES Performing Organization Address [facility] de Phone Number [facility] * CBC WITH DIFFERENTIAL (02/15/2017 8:26 AM CDT) WBC 6.5 3.4 - 10.8 x10E3/uL [facility] RBC 4.50 3.77 - 5.28 x10E6/uL [facility] HEMOGLOBIN 14.6 11.1 - 15.9 g/dL [facility] HEMATOCRIT 42.6 34.0 - 46.6 % [facility] MCV 95 79 - 97 fL [facility] MCH 32.4 26.6 - 33.0 pg [facility] MCHC 34.3 31.5 - 35.7 g/dL [facility] RDW 12.9 12.3 - 15.4 % [facility] PLATELETS 223 150 - 379 x10E3/uL [facility] NEUTROPHIL 60 % [facility] LYMPHOCYTES 27 % [facility] MONOCYTE 10 % [facility] EOSINOPHILS 3 % [facility] BASOPHILS 0 % [facility] NEUTROPHIL ABSOLUTE 3.9 1.4 - 7.0 x10E3/uL [facility] LYMPHOCYTE ABSOLUTE 1.8 0.7 - 3.1 x10E3/uL [facility] MONOCYTE ABSOLUTE 0.7 0.1 - 0.9 x10E3/uL [facility] EOSINOPHIL ABSOLUTE 0.2 0.0 - 0.4 x10E3/uL [facility] BASOPHILS ABSOLUTE 0.0 0.0 - 0.2 x10E3/uL [facility] IMMATURE GRANULOCYTES 0 % [facility] IMMATURE GRANULOCYTES ABSOLUTE 0.0 0.0 - 0.1 x10E3/uL [facility] Comment: A hand-written panel/profile was received from your office. In accordance with the [facility] Ambiguous Test Code Policy dated November 2002, we have assigned CBC with Differential/Platelet, Test Code #[id number] to this request. If this is not the testing you wished to receive on this specimen, please contact the [facility] Client Inquiry/ Technical Services Department to clarify the test order. We appreciate your business. 02/15/2017 8:26 AM CDT 02/15/2017 Narrative [facility] - 02/16/2017 7:11 AM CDT Performed at: ??01 - [address] ??[id number] Technology Administrator: Сергей Oliveira PhD, Phone: ??[phone] Gadiel Majano MD HEMATOLOGY ORDERABLE S [facility] * CBC WITH DIFFERENTIAL (02/15/2017) Blood Gadiel Majano MD HEMATOLOGY ORDERABLE S [facility] documented in this encounter Visit Diagnoses Diagnosis Routine general medical examination at a health care facility documented in this encounter Care Teams Disk Grinder Relationship Specialty Start Date End Date Gadiel Majano MD [address] [place] [address] PCP - General 02/25/07 documented as of this encounter
--- OUTSIDE RECORDS SUMMARY | 2024-05-11 15:15 | XMS_ITS | Encounter Summary ---
Author Organization [facility] Address [address] [place] [address] Care Team Providers Care Manufacturing Process Technician Name Role Phone Gadiel Majano MD Primary Care Provider [phone] Reason for Visit * Reason Onset Date Comments Question 10/03/2013 Encounter Details Date Type Department Care Team (Late st Contact Info) Description 10/03/2013 Telephone [facility] COMMUNITY RECREATION PROGRAMMER - [address] [place] [address] Yesenia Friedman DO [address] [place] [address] [place] [address] Question Social History Tobacco Use Types Packs/Day [...] encounter Miscellaneous Notes * Telephone Encounter - Ann Corona RN - 10/04/2013 2:26 PM CDT Pt returning Dr. Morrow call. Would like to discuss irregular bleeding. Per last OV note, educated pt on only using nuvaring for 3 months continuously & taking a break at that point to have a period & repeating. She was told by ELECTRONICS ENGINEERING PROFESSOR she needed to have a period every 6 months. States that she has used to nuvaring continually since May (when new plan was made). Discussed & reeducated on POC at last OV. Pt states she is also now having bleeding after orgasm. Still continues to get sick during period & is having to call off work as well. Would like to discuss other options with you. Inquired about mirena, pt said she might think about it. Pt requested date of last pap smear. Was last September. Suggested pt schedule appt for annual WWE & she will discuss these issues with you at the time of her appt. KP * Telephone Encounter - Yesenia Friedman DO - 10/04/2013 2:03 PM CDT Returned call and left message. Informed patient I am out of office today. Asked she give additional information to triage to help her or to give me more information about her current problem. Also requested she provide time she may be available for return call Yesenia Friedman DO * Telephone Encounter - Riya Weinberg RN - 10/03/2013 3:47 PM CDT Pt is calling requesting to speak to Dr. Friedman. Has some medical questions. Would not be specific. TG documented in this encounter Plan of Treatment Upcoming Encounters Date Type Department Care Team (Late st Contact Info) Description 05/19/2024 9:00 AM HRIS ADMINISTRATOR Appointment [facility] EEG [address] [place] [address] Gadiel Majano MD [address] [place] [address] 06/05/2024 8:30 AM HRIS ADMINISTRATOR [facility] [address] [address] [place] [address] Gadiel Majano MD [address] [place] [address] 08/09/2024 4:00 PM CDT Office Visit [facility] [address] [facility] [address] [place] [address] Jairo Matute PA [address] [place] [address] [address] [place] [address] 01/23/2025 3:20 PM CDT Office Visit [facility] [address] [place] [address] [address] [place] [address] Gadiel Majano MD [address] [place] [address] [address] [place] [address] 08/03/2025 8:30 AM CDT Office Visit [facility] NEUROLOG[facility] - [facility] [address] [facility] [address] [place] [address] Aliza Lion MD [address] [facility] [address] [place] [address] documented as of this encounter Visit Diagnoses Not on filedocumented in this encounter Care Teams Manufacturing Process Technician Relationship Specialty Start Date End Date Gadiel Majano MD [address] [place] [address] [address] [place] [address] PCP - General 02/25/07 documented as of this encounter
--- OUTSIDE RECORDS SUMMARY | 2024-05-11 15:17 | XMS_ITS | Encounter Summary ---
Author Organization [facility] Address [address] [place] [address] Care Team Providers Care Roughener Name Role Phone Gadiel Majano MD Primary Care Provider [phone] Reason for Referral * Eval and Treat (8-30 Days) - Closed Specialty Diagnoses / Procedures Referred By Contac t Referred To Contact Physical Medicine and Rehabilitation Diagnoses Backache, unspecified Procedures consult, eval and treat Gadiel Majano MD [address] [place] [address] [address] [place] [address] Devni Scruggs DO [address] [facility] [address] [place] [address] Referral ID Status Reason Start Date Expiration Date V isits Requested Visits Authorized [id number] Closed Ordering Dept To Review (STL) 12/05/2009 12/05/2010 3 3 Reason for Visit * Reason Comments Back Pain Encounter Details Date Type Department Care Team (Late st Contact Info) Description 12/05/2009 1:45 PM CDT Office Visit [facility] Medicine [address] [address] Gadiel Majano MD [address] [place] [address] [address] [place] [address] Unspecified Backache (Primary Dx) Social History Tobacco Use Types [...] Sign Reading Time Taken Comments Blood Pressure 109/70 12/05/2009 1:55 PM CDT Pulse - - Temperature - - Respiratory Rate - - Oxygen Saturation - - Inhaled Oxygen Concentration - - Weight 66.2 kg (146 lb) 12/05/2009 1:55 PM CDT Height - - Body Mass Index - - documented in this encounter Progress Notes * Gadiel Majano MD - 12/05/2009 7:07 PM CDT Was on 4 whalen 6 weeks ago Low back pain different than prev pain Sharp moderate advil not helping The patient appears alert, well appearing, and in no distress.- , Chest:clear to auscultation, no wheezes, rales or rhonchi, symmetric air entry. Heart sounds are normal. Abdomen soft, nontender, no masses or organomegaly. Back ls tender, normal ASSESSMENT: Encounter Diagnosis Name Primary? Unspecified Backache Yes Sample lyrica to take at night if needed given Refer rehab for eval PLAN: Orders Placed This Encounter ??? Amb referral to physicial medicine rehab documented in this encounter Plan of Treatment Upcoming Encounters Date Type Department Care Team (Late st Contact Info) Description 05/19/2024 9:00 AM CRULLER MAKER Appointment [facility] EEG [address] [address] [place] [address] Gadiel Majano MD [address] [place] [address] 06/05/2024 8:30 AM CRULLER MAKER Appointment [facility] [address] [place] [address] Gadiel Majano MD [address] [place], [place] [address], [place] [address] 08/09/2024 4:00 PM CDT Office Visit [address] [place] [address] Jairo Matute PA [address] [place] [address] [address] [place] [address] 01/23/2025 3:20 PM CDT Office Visit [address] [place] [address] Gadiel Majano MD [address] [place] [address] [address] [place] [address] 08/03/2025 8:30 AM CDT Office Visit [facility] NEUROLOGY - [facility] [address] [facility] [address] [place] [address] Aliza Lion MD [address] [facility] [address] [place] [address] Scheduled Referrals Name Type Priority Associated Diagnoses Orde r Schedule [facility] Outpatient Referral Routine Unspecified Backache Ordered: 12/05/2009 documented as of this encounter Visit Diagnoses Diagnosis Backache, unspecified- Primary documented in this encounter Care Teams Roughener Relationship Specialty Start Date End Date Gadiel Majano MD [address] [place] [address] [address] [place] [address] PCP - General 02/25/07 documented as of this encounter
--- OUTSIDE RECORDS SUMMARY | 2024-05-11 15:18 | XMS_ITS | Encounter Summary ---
Author Organization [facility] Address [address] [place] [address] Care Team Providers Care Family Centered Specialist Name Role Phone Gadiel Majano MD Primary Care Provider + Niki Jones DO Unavailable [phone] Reason for Visit * Reason Comments Follow-up Encounter Details Date Type Department Care Team (Latest Contact Info) Description 08/16/2023 2:00 PM CDT Office Visit [facility] [address] [address] [place] [address] [place] [address] Intrauterine contraceptive device threads lost, [...] on file Legal Sex 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 CHEMICAL DETECTION EXPERT Gender Identity Not on file Sexual Orientation [...] of cervical tissue to remove IUD at [facility] on 07/26. She had bleeding for one [...] affect Neurologic: awake/alert, no focal deficits A associate dentist was offered and declined ASSESSMENT / PLAN Trinh Corral is a 32 y.o. female Cervical tissue IUD removed Niki Jones DO 08/16/2023 documented in this encounter Plan of Treatment Not on file documented as of this encounter Visit Diagnoses Diagnosis Intrauterine contraceptive device threads lost, subsequent encounter- Primary documented in this encounter Care Teams Family Centered Specialist Relationship Specialty Start Date End Date Gadiel Majano MD [address] [place] [address] PCP - General 07/06/16 [place] [address] [place] [address] Consulting Physician Obstetrics and Gynecology 07/26/23 documented as of this encounter
--- OUTSIDE RECORDS SUMMARY | 2024-05-11 15:18 | XMS_ITS | Referral Summary ---
Author Organization [facility] Address [address] [place] [address] Care Team Providers Care Education Program Associate Name Role Phone Gadiel Majano MD Primary Care Provider + Kishorlizandrosharishilo Niki Katherin DO Unavailable [phone] Allergies Active Allergy Reactions Criticality Noted Date Comments Cephalexin Nausea And Vomiting Low 09/02/2011 Ciprofloxacin Nausea And Vomiting Low 09/02/2011 Nitrofurantoin Nausea & Vomiting Low 09/22/2021 Sulfa (Sulfonamide Antibiotics) Nausea & Vomiting Low 09/22/2021 Medications miSOPROStoL (CYTOTEC) 200 mcg tablet 2 tablets buckel at bedtime the evening prior to procedure 2 tablet 4 Active Additional Information Patient not taking.Reported on 07/19/2023 lactic kcdy-matbwz-dfi assium (Phexxi) 1.8-1-0.4 % gel vaginal gel [...] on file Legal Sex 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 NUCLEAR MEDICAL TECH Gender Identity Not on file Sexual Orientation Not on file Last Filed Vital Signs Vital Sign Reading Time Taken Comments Blood Pressure 115/84 08/16/2023 1:58 PM CDT Pulse 73 05/30/2022 1:45 PM NUCLEAR MEDICAL TECH Temperature 36.5 ??C (97.7 ??F) 05/30/2022 11:[address] Respiratory Rate 15 05/30/2022 1:45 PM NUCLEAR MEDICAL TECH Oxygen Saturation 100% 05/30/2022 1:45 PM NUCLEAR MEDICAL TECH Inhaled Oxygen Concentration - - Weight 84.4 kg (186 lb) 08/16/2023 1:58 PM CDT Height 165.1 cm (5' 5 ) 08/16/2023 1:58 PM CDT Body Mass Index 30.95 08/16/2023 1:58 PM CDT Plan of Treatment Not on file Procedures Procedure Name Priority Date/Time Associated Diagnosis Comments THINPREP IMAGING PAP AND HPV MRNA E6/E7 REFLEX HPV 16,18/45 Routine 07/12/2023 4:23 PM NUCLEAR MEDICAL TECH Encounter for well woman exam from Last 3 Months or Most Recently Relevant to Health Maintenance Results * ThinPrep(R) Imaging Pap and HPV mRNA E6/E7 Reflex HPV 16,18/45 (07/12/2023 4:23 PM NUCLEAR MEDICAL TECH) CLINICAL INFORMATION: [facility] Comment:None given LMP [facility] Comment:NONE GIVEN Previous Pap [facility] Comment:NONE GIVEN Prev. Bx [facility] Comment:NONE GIVEN SOURCE: [facility] Comment:None given Pap, specimen adequacy [facility] Comment: Satisfactory for evaluation. Endocervical/transformation zone component present. Age and/or menstrual status not provided HPV interp [facility] Comment: Cytology Results: Negative for intraepithelial lesion or malignancy. COMMENTS [facility] Comment: This Pap test has been evaluated with computer assisted technology. E Mail System Administrator [facility] Comment: TLS, CT(ASCP) CT Screening Location: [address] [address] Comment [facility] Comment: EXPLANATORY NOTE: The Pap is a [...] Detected [facility] Comment: Methodology: Lamp Assembler-Mediated Amplification This assay detects E6/E7 viral messenger RNA (mRNA) from 14 high-risk HPV types (16,18,31,33,35,39,45,51,52,56,58,59,66,68). Cervical sources are required for HPV testing. If a vaginal source from a patient who has had a total hysterectomy with removal of cervix was submitted, please contact the testing laboratory for alternative testing options. For additional information, please refer to http://education.Snaptu/faq/YBT769v5 (This link if provided for information/ educational purposes only.) Swab 07/12/2023 4:23 PM NUCLEAR MEDICAL TECH 07/13/2023 4:57 AM NUCLEAR MEDICAL TECH Erica Nayak NP LAB CYTOLOGY ORDERABLES Final Result [place] [address] [place] [address] [facility] [address] [address] from Last 3 Months or Most Recently Relevant to Health Maintenance Insurance [facility] CHOICE PLUS [facility] CHOICE PLUS [facility] CHOICE PLUS ANTH ACCESS CHOICE Care Teams Education Program Associate Relationship Specialty Start Date End Date Gadiel Majano MD [address] [place] [address] PCP - General 07/06/16 [place] [address] [place] [address] Consulting Physician Obstetrics and Gynecology 07/26/23
--- OUTSIDE RECORDS SUMMARY | 2024-05-11 15:18 | XMS_ITS | Clinical Summary ---
Author Organization [facility] Address [address] [place] [address] Care Team Providers Care Real Estate Agent Name Role Phone Gadiel Majano MD Primary Care Provider + Kishorlizandrosharishilo Niki Katherin DO Unavailable [phone] Allergies Active Allergy Reactions Criticality Noted Date Comments Cephalexin Nausea And Vomiting Low 09/02/2011 Ciprofloxacin Nausea And Vomiting Low 09/02/2011 Nitrofurantoin Nausea & Vomiting Low 09/22/2021 Sulfa (Sulfonamide Antibiotics) Nausea & Vomiting Low 09/22/2021 Medications miSOPROStoL (CYTOTEC) 200 mcg tablet 2 tablets buckel at bedtime the evening prior to procedure 2 tablet 4 Active Additional Information Patient not taking.Reported on 07/19/2023 lactic aqdh-ttsueu-uro assium (Phexxi) 1.8-1-0.4 % gel vaginal gel [...] on file Legal Sex 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 EXECUTIVE COMMUNITY PLANNING Gender Identity Not on file Sexual Orientation Not on file Obstetrics History Para Term AB IAB SAB Ectopic Multiple Livin g Live Births 0 0 0 0 0 0 0 0 0 0 0 Last Filed Vital Signs Vital Sign Reading Time Taken Comments Blood Pressure 115/84 08/16/2023 1:58 PM CDT Pulse 73 05/30/2022 1:45 PM EXECUTIVE COMMUNITY PLANNING Temperature 36.5 ??C (97.7 ??F) 05/30/2022 11:[address] Respiratory Rate 15 05/30/2022 1:45 PM EXECUTIVE COMMUNITY PLANNING Oxygen Saturation 100% 05/30/2022 1:45 PM EXECUTIVE COMMUNITY PLANNING Inhaled Oxygen Concentration - - Weight 84.4 [...] REFLEX HPV 16,18/45 Routine 07/12/2023 4:23 PM EXECUTIVE COMMUNITY PLANNING Encounter for well woman exam from Last 3 Months or Most Recently Relevant to Health Maintenance Results * ThinPrep(R) Imaging Pap and HPV mRNA E6/E7 Reflex HPV 16,18/45 (07/12/2023 4:23 PM EXECUTIVE COMMUNITY PLANNING) CLINICAL INFORMATION: [facility] Comment:None given LMP [facility] Comment:NONE GIVEN Previous Pap [facility] Comment:NONE GIVEN Prev. Bx [facility] Comment:NONE GIVEN SOURCE: [facility] Comment:None given Pap, specimen adequacy [facility] Comment: Satisfactory for evaluation. Endocervical/transformation zone component present. Age and/or menstrual status not provided HPV interp [facility] Comment: Cytology Results: Negative for intraepithelial lesion or malignancy. COMMENTS [facility] Comment: This Pap test has been evaluated with computer assisted technology. Individual Small Group Instructor [facility] Comment: TLS, CT(ASCP) CT Screening Location: [place] [address] Comment [facility] Comment: EXPLANATORY NOTE: The Pap is a [...] High Risk E6/E7 Not Detected Not Detected [facility] Comment: Methodology: Philatelic Consultant-Mediated Amplification This assay detects E6/E7 viral messenger RNA (mRNA) from 14 high-risk HPV types (16,18,31,33,35,39,45,51,52,56,58,59,66,68). Cervical sources are required for HPV testing. If a vaginal source from a patient who has had a total hysterectomy with removal of cervix was submitted, please contact the testing laboratory for alternative testing options. For additional information, please refer to http://education.Medigus/faq/XMU795b5 (This link if provided for information/ educational purposes only.) Swab 07/12/2023 4:23 PM EXECUTIVE COMMUNITY PLANNING 07/13/2023 4:57 AM EXECUTIVE COMMUNITY PLANNING Erica Nayak RISK ENGINEER LAB CYTOLOGY ORDERABLES Final Result [facility] [address] [place] [address] [facility] [address] [place] [address] from Last 3 Months or Most Recently Relevant to Health Maintenance Insurance [facility] [place] [address] [facility] CHOICE PLUS [facility] CHOICE PLUS [facility]LY [facility] ACCESS CHOICE Care Teams Real Estate Agent Relationship Specialty Start Date End Date [place] [address] PCP - General 07/06/16 [place] [address] [place] [address] Consulting Physician Obstetrics and Gynecology 07/26/23
--- OUTSIDE RECORDS SUMMARY | 2024-05-11 15:18 | XMS_ITS | Encounter Summary ---
Author Organization [facility] Address [address] [place] [address] Care Team Providers Care Pan Shaker Name Role Phone Gadiel Majano MD Primary Care Provider + Niki Jones DO Unavailable [phone] Reason for Visit * Reason Onset Date Comments Excision of cervical tissue and IUD removal-DPSS C, 07/27/23 07/29/2023 Encounter Details Date Type Department Care Team (Late st Contact Info) Description 07/29/2023 Documentation [facility] [address] [address] [place] [address] [place] [address] Excision of cervical tissue and [...] file Legal Sex 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 on 07/27/23 for procedure. Reviewed procedure and risks at length with patient. Answered all questions. Verbal and written consent given. Excision of cervical tissue and IUD removal. [id number] cervical tissue incasing IUD strings. No complications. RTO in 2 weeks. RIAL SPREADER documented in this encounter Plan of Treatment Not on file documented as of this encounter Visit Diagnoses Not on filedocumented in this encounter Care Teams Pan Shaker Relationship Specialty Start Date End Date Gadiel Majano MD [address] [place] [phone] PCP - General 07/06/16 [place] [address] [place] [address] Consulting Physician Obstetrics and Gynecology 07/26/23 documented as of this encounter
--- OUTSIDE RECORDS SUMMARY | 2024-05-11 15:19 | XMS_ITS | Encounter Summary ---
Author Organization [facility] Healthcare Address [address] [place] [address] Care Team Providers Care Lpn Medical Assistant Name Role Phone Gadiel Majano MD Primary Care Provider + Reason for Visit * Reason Comments Abdominal Cramping Diarrhea Encounter Details Date Type Department Care Team (Late st Contact Info) Description 05/30/2022 11:20 AM GAME TRAPPER - 05/30/2022 1:45 PM GAME TRAPPER Emergency [facility] Emergency Department [address] [place] [id number] Traveler's diarrhea (Primary Dx); Nausea and vomiting, [...] on file Legal Sex 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 GAME TRAPPER Gender Identity Not on file Sexual Orientation Not on file documented as of this encounter Last Filed Vital Signs Vital Sign Reading Time Taken Comments Blood Pressure 120/73 05/30/2022 1:45 PM GAME TRAPPER Pulse 73 05/30/2022 1:45 PM GAME TRAPPER Temperature 36.5 ??C (97.7 ??F) 05/30/2022 11:[address] Respiratory Rate 15 05/30/2022 1:45 PM GAME TRAPPER Oxygen Saturation 100% 05/30/2022 1:45 PM GAME TRAPPER Inhaled Oxygen Concentration - - Weight 74.6 kg (164 lb 7.4 oz) 05/30/2022 11:08 AM GAME TRAPPER Height 165.1 cm (5' 5 ) 05/30/2022 11:08 AM GAME TRAPPER Body Mass Index 27.37 05/30/2022 11:08 AM GAME TRAPPER documented in this encounter Discharge Instructions * Discharge Instructions* Delroy Morrison PA - 05/30/2022 1:27 PM GAME TRAPPER As discussed, please return to the ER [...] symptoms, worsening of symptoms, or persistent symptoms TRAPPER * Attachments The following attachments cannot be sent through Care Everywhere. * Acute Nausea and Vomiting (Discharge Care) (Setswana) documented in this encounter Medications at Time [...] loose stools today. Pt recently returned from [place] about one week ago. Denies hematochezia, fever, [...] Jean Crabtree MD at 05/30/2022 3:55 PM GAME TRAPPER TRAPPER TRAPPER Associated attestation - Jean Crabtree MD - 05/30/2022 3:55 PM GAME TRAPPER ED Attestation I did not see this patient. However, I was personally available for consultation in the ED for thispatient if the Advanced Practice Provider (BERNARD) needed any assistance. The BERNARD evaluated the patient independently and completed their own examination, documentation, and disposition. * Diana Reddy RN - 05/30/2022 11:06 AM CST Recent travels to [place], Abd cramping and diarrhea onset pasty 5 days, nausea with vomiting onset today. No fevers, no blood in stools or emesis TRAPPER documented in this encounter Plan of Treatment Not on file documented as of this encounter Procedures Procedure Name Priority Date/Time Associated Diagnosis Comments CT ABDOMEN PELVIS WO CONTRAST ED 05/30/2022 12:39 PM GAME TRAPPER POCT HCG, URINE STAT 05/30/2022 12:15 PM GAME TRAPPER URINALYSIS AND REFLEX TO MICROSCOPIC AND CULTURE STAT 05/30/2022 12:13 PM GAME TRAPPER EGFR STAT 05/30/2022 11:13 AM GAME TRAPPER DIFFERENTIAL AUTO STAT 05/30/2022 11: 13 AM GAME TRAPPER CBC WITH AUTO DIFFERENTIAL STAT 05/30/2022 11:13 AM GAME TRAPPER COMPREHENSIVE METABOLIC PANEL STAT 05/30/2022 11:13 AM GAME TRAPPER documented in this encounter Results * CT Abdomen Pelvis WO Contrast (05/30/2022 12:39 PM GAME TRAPPER) Anatomical Region Laterality Modality Body N/A Computed Tomogra phy 05/30/2022 12:5 8 PM GAME TRAPPER Narrative 05/30/2022 1:08 PM GAME TRAPPER EXAM DESCRIPTION: ?? CT ABDOMEN PELVIS WO [...] Findings Committee. J Am Clarisse Radiol. 2017 Dec;14(8):2823-8335. THIS IS AN ELECTRONICALLY VERIFIED FINAL REPORT 05/30/2022 1:08 PM - Electronically signed by ??Jairo Noguera M.D. RB: JORGE D: ??05/30/2022 1:08 PM T: ??05/30/2022 1:08 PM Report ID: [id number] Reading Location: ??[id number] Procedure Note Jairo Noguera MD - 05/30/2022 EXAM DESCRIPTION: CT ABDOMEN PELVIS WO CONTRAST REASON FOR STUDY: Abdominal pain, acute, nonlocalized Recent travels to [place], Abd cramping and diarrhea onset past 5 [...] Findings Committee. J Am Clarisse Radiol. 2017 Dec;14(8):9866-2609. THIS IS AN ELECTRONICALLY VERIFIED FINAL REPORT 05/30/2022 1:08 PM - Electronically signed by Jairo Noguera M.D. RB: JORGE Report ID: [id number] Reading Location: [id number] Delroy GONZALEZ IMG CT PROCEDURES Final R esult * POCT hCG, urine (05/30/2022 12:15 PM GAME TRAPPER) HCG, ur, POC Negative Lot Number [id number] QC Backgroud Clear Acceptable QC Control Line Acceptable Urine 05/30/2022 12:1 5 PM GAME TRAPPER Delroy GONZALEZ POINT OF CARE TEST ORDERA BLES Final Result * Urinalysis reflex to microscopic and culture Urine (05/30/2022 12:13 PM GAME TRAPPER) Color, ur Yellow Yellow [facility] Comment:Testing performed by : [facility], [address] [place] [address]., [address] Clarity, ur Clear Clear [facility] Comment:Testing performed by : [address] [address] Specific gravity, ur 1.013 1.003 - 1.030 [facility] Comment:Testing performed by : [address] [address] pH, urine 5.0 [facility] Comment:Testing performed by : [address] [address] Protein, ur ql Negative Negative [facility] Comment:Testing performed by : [address] [address] Glucose, ur ql Negative Negative [facility] Comment:Testing performed by : [address] [address] Ketones, ur Negative Negative [facility] Comment:Testing performed by : [address] [address] Bilirubin, ur Negative Negative [facility] Comment:Testing performed by : [address] [address] Blood, ur Negative Negative [facility] Comment:Testing performed by : [address] [address] Urobilinogen, ur <2.0 <2.0 mg/dL [facility] Comment:Testing performed by : [address] [address] Nitrite, ur Negative Negative [facility] Comment:Testing performed by : [address] [address] Leukocyte esterase, ur Negative Negative [facility] Comment:Testing performed by : [facility], [address] [place] [address]., [address] UA reflex comment Reflex conditions for microscopic UA and culture not met. [facility] Comment:Testing performed by : [facility], [address] [place] [address]., [address] Urine 05/30/2022 12:1 3 PM GAME TRAPPER 05/30/2022 12:20 PM GAME TRAPPER Narrative [facility] - 05/30/2022 12:25 PM GAME TRAPPER ?? Urine pH is affected by diet, medications, systemic acid-base disturbances, and renal tubular function. ??pH may affect urinary stone formation. ??For example, urine pH below 6.0 may help reduce the tendency for calcium phosphate stones and pH greater than 6.0 may reduce the tendency for uric acid stone formation. Source: [facility] [employer]. Last revised 06-03-2017 Delroy GONZALEZ LAB MICROBIOLOGY - GENERA L ORDERABLES Final Result [facility] [address] [facility] Department [place] [address] * eGFR (05/30/2022 11:13 AM GAME TRAPPER) eGFR 119 mL/min/1. 73 m2 [facility] Comment: [...] was last reviewed 2021. Testing performed by: [address] [address] Blood 05/30/2022 11:1 3 AM GAME TRAPPER 05/30/2022 11:17 AM GAME TRAPPER us Delroy GONZALEZ LAB BLOOD ORDERABLES Enma l Result [facility] [address] [facility] Department [place] [address] * (ABNORMAL) Differential, auto (05/30/2022 11:13 AM GAME TRAPPER) Neutrophil abs 12.5(H) 1.7 - 6.5 K/cumm [facility] Comment:Testing performed by : [address] [address] Imm gran abs 0.1 0.0 - 0.1 K/cumm [facility] Comment:Testing performed by : [address] [address] Lymphocyte abs 1.4 0.8 - 3.3 K/cumm [facility] Comment:Testing performed by : [address] [address] Monocyte abs 1.6(H) 0.2 - 0.8 K/cumm [facility] Comment:Testing performed by : [address] [address] Eosinophil abs 0.2 0.0 - 0.5 K/cumm [facility] Comment:Testing performed by : [address] [address] Basophil abs 0.0 0.0 - 0.1 K/cumm [facility] Comment:Testing performed by : [address] [address] Neutrophil pct 79.2 % [facility] Comment: Interpretive Data Percent cell count reference ranges are not reported, since discordance with absolute values may lead to misinterpretation of CBC data. Current Interpretive Data was last revised on 2017. Testing performed by: [address] [address] Imm gran pct 0.3 % [facility] Comment: Interpretive Data Percent cell count reference ranges are not reported, since discordance with absolute values may lead to misinterpretation of CBC data. Current Interpretive Data was last revised on 2017. Testing performed by: [address] [address] Lymphocyte pct 8.8 % [facility] Comment: Interpretive Data Percent cell count reference ranges are not reported, since discordance with absolute values may lead to misinterpretation of CBC data. Current Interpretive Data was last revised on 2017. Testing performed by: [address] [address] Monocyte pct 9.9 % [facility] Comment: Interpretive Data Percent cell count reference ranges are not reported, since discordance with absolute values may lead to misinterpretation of CBC data. Current Interpretive Data was last revised on 2017. Testing performed by: [address] [address] Eosinophil pct 1.5 % [facility] Comment: Interpretive Data Percent cell count reference ranges are not reported, since discordance with absolute values may lead to misinterpretation of CBC data. Current Interpretive Data was last revised on 2017. Testing performed by: [address] [address] Basophil pct 0.3 % [facility] Comment: Interpretive Data Percent cell count reference ranges are not reported, since discordance with absolute values may lead to misinterpretation of CBC data. Current Interpretive Data was last revised on 2017. Testing performed by: [address] [address] Blood 05/30/2022 11:1 3 AM GAME TRAPPER 05/30/2022 11:17 AM GAME TRAPPER us Delroy GONZALEZ LAB BLOOD ORDERABLES Enma chery Result [facility] [address] [facility] Department [place] [address] * Comprehensive metabolic panel (05/30/2022 11:13 AM GAME TRAPPER) Sodium 137 135 - 145 mmol/L [facility] Comment:Testing performed by : [address] [address] Potassium, pl 4.0 3.3 - 4.9 mmol/L [facility] Comment:Testing performed by : [address] [address] Chloride 104 97 - 110 mmol/L [facility] Comment:Testing performed by : [address] [address] CO2 25 22 - 32 mmol/L [facility] Comment:Testing performed by : [address] [address] Anion gap 8 2 - 15 mmol/L [facility] Comment:Testing performed by : [address] [address] BUN 10 8 - 25 mg/dL [facility] Comment:Testing performed by : [address] [address] Creatinine 0.70 0.60 - 1.10 mg/dL [facility] Comment:Testing performed by : [address] [address] Glucose 100 70 - 199 mg/dL ANNA[facility]LE [...] was last revised 2017. Testing performed by: [address] [address] Calcium 9.4 8.5 - 10.3 mg/dL [facility] Comment:Testing performed by : [address] [address] Bilirubin, total 0.4 0.1 - 1.2 mg/dL [facility] Comment:Testing performed by : [address] [address] Protein, pl 7.0 6.5 - 8.5 g/dL [facility] Comment:Testing performed by : [address], [address] Albumin 4.6 3.5 - 5.0 g/dL [facility] Comment:Testing performed by : [address] [address] Alk phos 69 40 - 130 Units/L [facility] Comment:Testing performed by : [address] [address] ALT 21 7 - 45 Units/L [facility] Comment:Testing performed by : [address] [address] AST 18 10 - 45 Units/L [facility] Comment:Testing performed by : [address] [address] Blood 05/30/2022 11:1 3 AM GAME TRAPPER 05/30/2022 11:17 AM GAME TRAPPER us Delroy GONZALEZ LAB BLOOD ORDERABLES Enma l Result [facility] [address] [facility] Department [place] [address] * (ABNORMAL) CBC with auto differential (05/30/2022 11:13 AM GAME TRAPPER) [facility] WBC 15.7(H) 3.8 - 9.9 K/cumm [facility] Comment:Testing performed by : [address] [address] Hgb 14.4 11.9 - 15.5 g/dL [facility] Comment:Testing performed by : [address] [address] Hct 42.0 35.6 - 45.5 % [facility] Comment:Testing performed by : [address] [address] Plt 232 150 - 400 K/cumm [facility] Comment:Testing performed by : [address] [address] MPV 10.6 9.1 - 12.3 fL [place] Comment:Testing performed by : [address], [address] RBC 4.52 3.90 - 5.20 M/cumm [facility] Comment:Testing performed by : [address] [address] MCV 92.9 81.3 - 96.4 fL [facility] Comment:Testing performed by : [address] [address] MCH 31.9 27.1 - 33.3 pg [facility] Comment:Testing performed by : [address] [address] MCHC 34.3 32.3 - 35.7 g/dL [facility] Comment:Testing performed by : [address] [address] RDW CV 12.2 11.1 - 14.9 % [facility] Comment:Testing performed by : [address] [address] RDW SD 42.1 35.7 - 48.1 fL [facility] Comment:Testing performed by : [address] [address] NRBC abs 0.00 0.00 - 0.01 K/cumm [facility] Comment:Testing performed by : [address] [address] Blood 05/30/2022 11:1 3 AM GAME TRAPPER 05/30/2022 11:17 AM GAME TRAPPER us Delroy GONZALEZ LAB BLOOD ORDERABLES Enma chery Result [place] [address] [facility] Department [place] [address] documented in this encounter Visit [...] 1 dose New Bag 05/30/2022 11:19 AM GAME TRAPPER 1,000 mL Lactated Ringer's (LR) bolus 1,000 mL 1,000 mL, intravenous, Once, On 05/30/22 at 1204, For 1 dose New Bag 05/30/2022 12:25 PM GAME TRAPPER 1,000 mL ondansetron (ZOFRAN) injection 4 mg 4 mg, intravenous, Administer over 2 Minutes, Once, On 05/30/22 at 1120, For 1 dose Given 05/30/2022 11:23 AM GAME TRAPPER 4 mg documented in this encounter Active and Recently Administered Medications Times are shown in GAME TRAPPER. Scheduled Medication Order 05/28/2022 05/29/2022 05/30/2022 Lactated [...] 05/30/2022 documented in this encounter Care Teams Lpn Medical Assistant Relationship Specialty Start Date End Date Gadiel Majano MD [address] [place] [address] PCP - General 07/06/16 documented as of this encounter
--- OUTSIDE RECORDS SUMMARY | 2024-05-11 15:19 | XMS_ITS | Encounter Summary ---
Author Organization [facility] Address [address] [place] [address] Care Team Providers Care Building Maintenance Superintendent Name Role Phone Gadiel Majano MD Primary Care Provider + Reason for Visit * Reason Onset Date Comments UA results 09/14/2018 Encounter Details Date Type Department Care Team (Late st Contact Info) Description 09/14/2018 Telephone [facility] [address] [place] [address] [place] [address] Gadiel Majano MD [address] [place] [phone] UA results Social History Tobacco Use Types Packs/Day Years Used Date Smoking Tobacco: Every Day Alcohol Use Standard Drinks/Week Comments No 0 (1 standard drink = 0.6 oz pur e alcohol) Comments Unknown Sex and Gender Information Value Date Recorded Sex Assigned at Not on file Legal Sex 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
--- OUTSIDE RECORDS SUMMARY | 2024-05-11 15:19 | XMS_ITS | Encounter Summary ---
Author Organization [facility] Address [address] [place] [address] Care Team Providers Care Stock Manager Name Role Phone Gadiel Majano MD Primary Care Provider + Encounter Details Date Type Department Care Team (Late st Contact Info) Description 07/13/2023 Telephone [facility] [address] [address] Veronica Krishna RN Social [...] on file Legal Sex 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 PACK WORKER SUPERVISOR Gender Identity Not on file Sexual Orientation Not on file documented as of this encounter Miscellaneous Notes * Telephone Encounter - Veronica Krishna RN - 07/13/2023 9:04 AM PACK WORKER SUPERVISOR Pt is calling with questions about cytotec and IUD removal. Questions answered and reviewed how to take cytotec and what to expect. Pt encouraged to call back with any further questions. WORKER SUPERVISOR documented in this encounter Plan of Treatment Not on file documented as of this encounter Visit Diagnoses Not on filedocumented in this encounter Care Teams Stock Manager Relationship Specialty Start Date End Date Gadiel Majano MD [address] [place] [address] PCP - General 07/06/16 documented as of this encounter
--- OUTSIDE RECORDS SUMMARY | 2024-05-11 15:19 | XMS_ITS | Encounter Summary ---
Author Organization [facility] Address [address] [place] [address] Care Team Providers Care Tank Systems Maintainer Name Role Phone Gadiel Majano MD Primary Care Provider + Reason for Visit * Reason Comments Urinary Symptom c/o burning when uri nating and urinary frequency for the past 3 days Encounter Details Date Type Department Care Team (Late st Contact Info) Description 01/19/2019 4:15 PM CDT Office Visit [facility] [address] [place] [address] Sveta Menendez, MACARIO [address] [place] [address] Urinary frequency (Primary Dx) Social History Tobacco Use Types Packs/Day Years Used Date Smoking Tobacco: Every Day Cigarettes Smokeless Tobacco: Never Alcohol Use Standard Drinks/Week Comments No 0 (1 standard drink = 0.6 oz pur e alcohol) Comments No Sex and Gender Information Value Date Recorded Sex Assigned at Not on file Legal Sex 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 Gender Identity Not on file Sexual [...] standards) ANNABELLE STUART Comment:Testing performed by : [facility], [address] [place]., [address] Organism (CLINICALLY INSIGNIFICANT GROWTH ANNABELLE STUART Urine, clean voided 01/20/2019 4:36 PM CDT 01/20/2019 10:39 PM CDT Narrative ANNABELLE STUART - 01/22/2019 8:01 AM CDT Testing performed by [facility] Microbiology Laboratory ([phone]) us Sveta Menendez NP LAB MICROBIOLOGY - NERAL ORDERABLES Final Result ANNABELLE STUART [address] Department [place] [address] * (ABNORMAL) POCT urinalysis dipstick (01/19/2019 4:34 PM CDT) Color, Urine, POC [place] Clarity, ur, POC Cloudy(A) Clear Glucose, ur, POC 250.(A) Negative mg/dL Bilirubin, ur, POC Moderate Negative, Small, Moderate, Large Ketones, ur, POC Small(A) Negative Specific [place], POC 1.015 1.005 - 1.030 Blood, ur, POC Negative Negative pH, ur, POC 5.0 5.0 - 8.0 Protein, ur, POC 1+(A) Negative Urobilinogen, urine, POC 4.0(A) 0.2 - 1.0 mg/dL Nitrite, ur, POC Positive(A) Negative Leukocytes, ur, POC 3+(A) Negative Lot Number [id number] Urine 01/19/2019 4:34 PM CDT Sveta Menendez NP POINT OF CARE TEST OR DERABLES Final Result documented in this encounter Visit Diagnoses Diagnosis Urinary frequency- Primary Urinary frequency documented in this encounter Care Teams Tank Systems Maintainer Relationship Specialty Start Date End Date Gadiel Majano MD [address] [place] [address] PCP - General 07/06/16 documented as of this encounter
--- OUTSIDE RECORDS SUMMARY | 2024-05-11 15:19 | XMS_ITS | Encounter Summary ---
Author Organization [facility] Care Team Providers Care Orange Picker Name Role Phone Gadiel Majano MD Primary [...] Legal Sex 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 DIRECTOR OF STUDENT AID Gender Identity Not on file Sexual Orientation Not on file documented as of this encounter Plan of Treatment Not on file documented as of this encounter Visit Diagnoses Not on filedocumented in this encounter Care Teams Orange Picker Relationship Specialty Start Date End Date Gadiel Majano MD [address] [place] [phone] PCP - General 07/06/16 documented as of this encounter
--- OUTSIDE RECORDS SUMMARY | 2024-05-11 15:19 | XMS_ITS | Encounter Summary ---
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 NG PRODUCTION SUPERVISOR documented in this encounter Plan of Treatment Not on file documented as of this encounter Visit Diagnoses Not on filedocumented in this encounter Care Teams Director Experimental Medicine Relationship Specialty Start Date End Date Gadiel Majano MD [address] [place] [address] PCP - General 07/06/16 documented as of this encounter
--- OUTSIDE RECORDS SUMMARY | 2024-05-11 15:19 | XMS_ITS | Encounter Summary ---
Author Organization [facility] Address [address] [place] [address] Care Team Providers Care Digital Strategist Name Role Phone Gadiel Majano MD Primary Care Provider + Reason for Visit * Diagnostic Imaging (Routine) - Closed Specialty Diagnoses / Procedures Referred By Josie fitch Referred To Contact Diagnoses IUD check up [place] [address] [place] [address] Phone: tel: fax: [facility] Referral ID Status Reason Start Date Expiration Date Visits Re quested Visits Authorized [id number] Closed 07/12/2023 08/10/2024 1 1 Encounter Details Date Type Department Care Team (Late st Contact Info) Description 07/19/2023 1:40 PM MANUFACTURING TECH Ancillary Procedure [facility] [address] [place] [address] IUD check up Social History Tobacco [...] on file Legal Sex 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 MANUFACTURING TECH Gender Identity Not on file Sexual Orientation Not on file documented as of this encounter Plan of Treatment Not on file documented as of this encounter Procedures Procedure Name Priority Date/Time Associated Diagnosis Comments US TRANSVAGINAL Schedule Routine, Read Routine (OP Routine) 07/19/2023 1:39 PM MANUFACTURING TECH IUD check up documented in this encounter Results * US Transvaginal (07/19/2023 1:39 PM MANUFACTURING TECH) Endometrial Thickness 6.5 mm&millime ters VIEWPOINT Anatomical Region Laterality Modality Pelvis N/A Ultrasound 07/19/2023 1:54 PM MANUFACTURING TECH Impressions 07/22/2023 5:13 PM MANUFACTURING TECH IUD appropriately positioned. Narrative Procedure Note Niki Jones DO - 07/22/2023 IMPRESSION: IUD appropriately positioned. us Erica Nayak SUPERVISOR TRANSCRIBING OPERATORS IMG US PROCEDURES Final Result documented in this encounter Visit Diagnoses Diagnosis IUD check up documented in this encounter Care Teams Digital Strategist Relationship Specialty Start Date End Date Gadiel Majano MD [address] [place] [address] PCP - General 07/06/16 documented as of this encounter
--- OUTSIDE RECORDS SUMMARY | 2024-05-11 15:19 | XMS_ITS | Encounter Summary ---
Author Organization [facility] Address [address] [place] [address] Care Team Providers Care Artificial Pearl Maker Name Role Phone Gadiel Majano MD Primary Care Provider + Reason for Referral * Diagnostic Lab (Routine) - Closed Specialty Diagnoses / Procedures Referred By Josie fitch Referred To Contact Lab Diagnoses Routine gynecological examination Procedures ThinPrep(R) Imaging Pap and HPV mRNA E6/E7 Reflex HPV 16,18/[place] [address] [place] [address] Phone: tel: fax: Referral ID Status Reason Start Date Expiration Date Visits Re quested Visits Authorized [id number] Closed 11/16/2022 12/16/2023 1 1 Reason for Visit * Reason Comments Annual Exam Encounter Details Date Type Department Care Team (Latest Contact Info) Description 11/16/2022 4:00 PM CDT Office Visit [facility] [address] [place] [address] [place] [address] [place] [address] Routine gynecological examination (Primary Dx) Social History Tobacco Use Types Packs/Day Years Used Date Smoking Tobacco: Former Cigarettes Passive Smoke Exposure: Past Smokeless Tobacco: Never Alcohol Use Standard Drinks/Week Comments No 0 (1 standard drink = 0.6 oz pur e alcohol) Comments No Sex and Gender Information Value Date Recorded Sex Assigned at Not on file 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 No menstrual [...] 16,18/45 (11/16/2022 4:39 PM CDT) CLINICAL INFORMATION: [facility] Comment:None given LMP [facility] Comment:NONE GIVEN Previous Pap [facility] Comment:NONE GIVEN Prev. Bx [facility] [employer] [facility] Comment:NONE GIVEN SOURCE: [facility] Comment:None given Pap, specimen adequacy [facility] Comment: Satisfactory for evaluation. Endocervical/transformation zone component present. Age and/or menstrual status not provided HPV interp [facility] Comment:Negative for intraep ithelial lesion or malignancy. COMMENTS [facility] [employer] [facility] Comment: This Pap test has been evaluated with computer assisted technology. Multimedia Programmer [facility] Comment: BES, CT(ASCP) CT screening location: [place] [address] [place], [facility] [facility] Comment: EXPLANATORY NOTE: The Pap is [...] High Risk E6/E7 Not Detected Not Detected [facility] Comment: Methodology: Pastrycook'S Assistant-Mediated Amplification This assay detects E6/E7 viral messenger RNA (mRNA) from 14 high-risk HPV types (16,18,31,33,35,39,45,51,52,56,58,59,66,68). Cervical sources are required for HPV testing. If a vaginal source from a patient who has had a total hysterectomy with removal of cervix was submitted, please contact the testing laboratory for alternative testing options. For additional information, please refer to http://education.NatureWorks/faq/NDW793d1 (This link if provided for information/ educational purposes only.) Swab 11/16/2022 4:39 PM CDT 11/17/2022 4:33 AM CDT Niki Jones DO LAB CYTOLOGY ORDERABLES Final Result [facility] [address] [place] [address] [facility] [address] [place] [address] documented in this encounter Visit Diagnoses Diagnosis Routine gynecological examination- Primary documented in this encounter Care Teams Artificial Pearl Maker Relationship Specialty Start Date End Date Gadiel Majano MD [address] [facility] [place] [address] PCP - General 07/06/16 documented as of this encounter
--- OUTSIDE RECORDS SUMMARY | 2024-05-11 15:19 | XMS_ITS | Encounter Summary ---
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 ER SWEEP documented in this encounter Plan of Treatment Not on file documented as of this encounter Visit Diagnoses Not on filedocumented in this encounter Care Teams Bouffant Curtain Machine Tender Relationship Specialty Start Date End Date Gadiel Majano MD [address] [place] [address] [address] [place] [address] PCP - General 07/06/16 documented as of this encounter
--- OUTSIDE RECORDS SUMMARY | 2024-05-11 15:19 | XMS_ITS | Encounter Summary ---
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
--- OUTSIDE RECORDS SUMMARY | 2024-05-11 15:19 | XMS_ITS | Encounter Summary ---
Author Organization [facility] Healthcare Address [address] [place] [address] Care Team Providers Care Social Media Marketer Name Role Phone Gadiel Majano MD Primary Care Provider + Encounter Details Date Type Department Care Team (Late st Contact Info) Description 01/02/2019 9:25 PM CDT Lab [address] [id number] Urinary tract infection without hematuria, site unspecified Social History Tobacco Use Types Packs/Day Years Used Date Smoking Tobacco: Every Day Cigarettes Smokeless Tobacco: Never Alcohol Use Standard Drinks/Week Comments No 0 (1 standard drink = 0.6 oz pur e alcohol) Comments No Sex and Gender Information Value Date Recorded Sex Assigned at Not on file 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 Gender Identity Not on file Sexual Orientation [...] standards) ANNABELLE STUART Comment:Testing performed by : [facility], [address] [place]., [address] Organism (CLINICALLY INSIGNIFICANT GROWTH CERKARLI STUART Urine, clean voided 01/02/2019 4:15 PM CDT 01/03/2019 12:30 AM CDT Narrative VITOKARLI SADE - 01/04/2019 8:02 AM CDT Testing performed by [facility] Microbiology Laboratory ([phone]) Sveta Menendez NETTING INSPECTOR LAB MICROBIOLOGY - NERAL ORDERABLES Final Result ANNABELLE STUART [address] Department [place] [address] documented in this encounter Visit Diagnoses Diagnosis Urinary tract infection without hematuria, site unspecified documented in this encounter Care Teams Social Media Marketer Relationship Specialty Start Date End Date Gadiel Majano MD [address] [place] [address] PCP - General 07/06/16 documented as of this encounter
--- OUTSIDE RECORDS SUMMARY | 2024-05-11 15:19 | XMS_ITS | Encounter Summary ---
Author Organization [facility] Healthcare Address [address] [place] [address] Care Team Providers Care Drill Bit Sharpener Name Role Phone aGdiel Majano MD Primary Care Provider + Encounter Details Date Type Department Care Team (Late st Contact Info) Description 01/20/2019 7:15 PM CDT Lab [address] [address] Urinary frequency Social History Tobacco Use Types Packs/Day Years Used Date Smoking Tobacco: Every Day Cigarettes Smokeless Tobacco: Never Alcohol Use Standard Drinks/Week Comments No 0 (1 standard drink = 0.6 oz pur e alcohol) Comments No Sex and Gender Information Value Date Recorded Sex Assigned at Not on file 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 Gender Identity Not on file Sexual [...] standards) ANNABELLE STUART Comment:Testing performed by : [facility], [address] [facility] [address] Organism (CLINICALLY INSIGNIFICANT GROWTH ANNABELLE STUART Urine, clean voided 01/20/2019 4:36 PM CDT 01/20/2019 10:39 PM CDT Narrative ANNABELLE STUART - 01/22/2019 8:01 AM CDT Testing performed by [facility] Microbiology Laboratory ([phone]) us Sveta Menendez CRANE CHASER LAB MICROBIOLOGY - NERAL ORDERABLES Final Result ANNABELLE [address] Department [place] [address] documented in this encounter Visit Diagnoses Diagnosis Urinary frequency documented in this encounter Care Teams Drill Bit Sharpener Relationship Specialty Start Date End Date Gadiel Majano MD [address] [place] [address] PCP - General 07/06/16 documented as of this encounter
--- OUTSIDE RECORDS SUMMARY | 2024-05-11 15:19 | XMS_ITS | Encounter Summary ---
Author Organization [facility] Address [address] [facility] [place] [address] Care Team Providers Care Steel Grinder Name Role Phone Gadiel Majano MD Primary Care Provider + Reason for Referral * Diagnostic Imaging (Routine) - Closed Specialty Diagnoses / Procedures Referred By Josie fitch Referred To Contact Diagnoses IUD check up [place] [address] [place] [address] Phone: tel: fax: [facility] Referral ID Status Reason Start Date Expiration Date Visits Re quested Visits Authorized [id number] Closed 07/12/2023 08/10/2024 1 1 ER INSULATION * Diagnostic Lab (Routine) - Pending Review Specialty Diagnoses / Procedures Referred By Josie fitch Referred To Contact Lab Diagnoses Encounter for well woman exam Procedures ThinPrep(R) Imaging Pap and HPV mRNA E6/E7 Reflex HPV 16,18/[place] [address] [place] [address] Phone: tel: fax: Referral ID Status Reason Start Date Expiration Date V isits Requested Visits Authorized [id number] Pending Review 07/12/2023 08/10/2024 1 1 ER INSULATION Reason for Visit * Reason Comments Annual Exam Encounter Details Date Type Department Care Team (Late st Contact Info) Description 07/12/2023 3:55 PM PACKER INSULATION Office Visit [facility] [address] [place] [phone] [place] [address] [place], [place] [id number] Encounter for well woman exam (Primary Dx); [...] on file Legal Sex 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 PACKER INSULATION Gender Identity Not on file Sexual Orientation Not on file documented as of this encounter Last Filed Vital Signs Vital Sign Reading Time Taken Comments Blood Pressure 115/84 07/12/2023 3:48 PM PACKER INSULATION Pulse - - Temperature - - Respiratory Rate - - Oxygen Saturation - - Inhaled Oxygen Concentration - - Weight 86.2 kg (190 lb) 07/12/2023 3:48 PM PACKER INSULATION Height 165.1 cm (5' 5 ) 07/12/2023 3:48 PM PACKER INSULATION Body Mass Index 31.62 07/12/2023 3:48 PM PACKER INSULATION documented in this encounter Ordered Prescriptions Prescription Sig Dispense Quantity Refills Last Filled Start Date End Date miSOPROStoL (CYTOTEC) 200 mcg tablet 2 tablets buckel at bedtime the evening prior to procedure 2 tablet 07/12/2023 lactic mkkq-hrslzf-ichlzw ium (Phexxi) 1.8-1-0.4 % gel vaginal gel [...] results. RTO 1 yr/prn Erica Nayak NP ER INSULATION documented in this encounter Plan of Treatment Not on file documented as of this encounter Procedures Procedure Name Priority Date/Time Associated Diagnosis Comments THINPREP IMAGING PAP AND HPV MRNA E6/E7 REFLEX HPV 16,18/45 Routine 07/12/2023 4:23 PM PACKER INSULATION Encounter for well woman exam documented in this encounter Results * US Transvaginal (07/19/2023 1:39 PM PACKER INSULATION) Endometrial Thickness 6.5 mm&millime ters VIEWPOINT Anatomical Region Laterality Modality Pelvis N/A Ultrasound 07/19/2023 1:54 PM PACKER INSULATION Impressions 07/22/2023 5:13 PM PACKER INSULATION IUD appropriately positioned. Narrative Procedure Note Niki Jones DO - 07/22/2023 IMPRESSION: IUD appropriately positioned. us Erica Nayak NP IMG US PROCEDURES Final Result * ThinPrep(R) Imaging Pap and HPV mRNA E6/E7 Reflex HPV 16,18/45 (07/12/2023 4:23 PM PACKER INSULATION) CLINICAL INFORMATION: [facility] Comment:None given LMP [facility] Comment:NONE GIVEN Previous Pap [facility] [employer] [facility] Comment:NONE GIVEN Prev. Bx [facility] [facility] Comment:NONE GIVEN SOURCE: [facility] Comment:None given Pap, specimen adequacy [facility] [employer] [facility] Comment: Satisfactory for evaluation. Endocervical/transformation zone component present. Age and/or menstrual status not provided HPV interp [facility] [employer] [facility] Comment: Cytology Results: Negative for intraepithelial lesion or malignancy. COMMENTS [facility] Comment: This Pap test has been evaluated with computer assisted technology. Steel Tester [facility] [employer] [facility] Comment: TLS, CT(ASCP) CT Screening Location: [place] [address] Comment [facility] Comment: EXPLANATORY NOTE: The Pap is a [...] High Risk E6/E7 Not Detected Not Detected [facility] Comment: Methodology: Batch Weigher-Mediated Amplification This assay detects E6/E7 viral messenger RNA (mRNA) from 14 high-risk HPV types (16,18,31,33,35,39,45,51,52,56,58,59,66,68). Cervical sources are required for HPV testing. If a vaginal source from a patient who has had a total hysterectomy with removal of cervix was submitted, please contact the testing laboratory for alternative testing options. For additional information, please refer to http://education.Trendslide/faq/AMZ184h7 (This link if provided for information/ educational purposes only.) Swab 07/12/2023 4:23 PM PACKER INSULATION 07/13/2023 4:57 AM PACKER INSULATION Erica Nayak NP LAB CYTOLOGY ORDERABLES Final Result [facility] [address] [place] [address] [facility] [address] [place] [address] documented in this encounter Visit Diagnoses Diagnosis [...] documented as of this encounter Care Teams Steel Grinder Relationship Specialty Start Date End Date Gadiel Majano MD [address] [place] [address] PCP - General 07/06/16 documented as of this encounter
--- OUTSIDE RECORDS SUMMARY | 2024-05-11 15:19 | XMS_ITS | Encounter Summary ---
Author Organization [facility] Medical Group Address [address] [facility] [address] [place] [address] Care Team Providers Care Hospitality Associate Name Role Phone Gadiel Majano MD Primary Care Provider + Reason for Visit * Reason Comments UTI The patient is havin g burning during uniation and frequency, it has been going on since yesterday Encounter Details Date Type Department Care Team (Late Contact Info) Description 01/02/2019 4:00 PM CDT Office Visit [facility] [address] [place] [address] Sveta Menendez, MACARIO [address] [facility] [address] Urinary tract infection without hematuria, [...] on file 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 Gender Identity Not on file Sexual Orientation [...] (01/02/2019 4:16 PM CDT) Color, Urine, POC [place] Clarity, ur, POC Cloudy(A) Clear Glucose, ur, POC 100.(A) Negative mg/dL Bilirubin, ur, POC 1+(A) Negative, Small, Moderate, Large Ketones, ur, POC Small(A) Negative Specific [place], POC 1.020 1.005 - 1.030 Blood, ur, POC Negative Negative pH, ur, POC 7.0 5.0 - 8.0 Protein, ur, POC 2+(A) Negative Urobilinogen, urine, POC 2.0(A) 0.2 - 1.0 mg/dL Nitrite, ur, POC Positive(A) Negative Leukocytes, ur, POC Negative Negative Lot Number [id number] Urine 01/02/2019 4:1 6 PM CDT Sveta Menendez NP POINT OF CARE TEST OR DERABLES Final Result * Urine culture Urine, clean voided (01/02/2019 4:15 PM CDT) Report Final Report: Less than 100,000 colonies/mL (clinically insignificant growth based on current clinical standards) ANNABELLE STUART Comment:Testing performed by : [facility], [address] [place]., [address] Organism (CLINICALLY INSIGNIFICANT GROWTH ANNABELLE STUART Urine, clean voided 01/02/2019 4:15 PM CDT 01/03/2019 12:30 AM CDT Narrative ANNABELLE STUART - 01/04/2019 8:02 AM CDT Testing performed by [facility] Microbiology Laboratory ([phone]) Sveta Menendez PASSENGER ELEVATOR OPERATOR LAB MICROBIOLOGY - [place]ERAL ORDERABLES Final Result ANNABELLE STUART [address] Department [place] [address] documented in this encounter Visit Diagnoses Diagnosis Urinary tract infection without hematuria, site unspecified- Primary Urinary tract infection without hematuria, site unspecified documented in this encounter Care Teams Hospitality Associate Relationship Specialty Start Date End Date Gadiel Majaon MD [address] [place] [phone] PCP - General 07/06/16 documented as of this encounter
--- OUTSIDE RECORDS SUMMARY | 2024-05-11 15:19 | XMS_ITS | Encounter Summary ---
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
--- OUTSIDE RECORDS SUMMARY | 2024-05-11 15:19 | XMS_ITS | Encounter Summary ---
Author Organization [facility] Address [address] [place] [address] Care Team Providers Care Contracts Administrator Name Role Phone Gadiel Majano MD Primary Care Provider + Reason for Referral * Diagnostic Lab (Routine) - Closed Specialty Diagnoses / Procedures Referred By Josie fitch Referred To Contact Lab Diagnoses Routine gynecological examination Procedures ThinPrep(R) Imaging Pap and HPV mRNA E6/E7 Reflex HPV 16,18/[place] [address] [place] [address] Phone: tel: fax: Referral ID Status Reason Start Date Expiration Date Visits Re quested Visits Authorized [id number] Closed 09/22/2021 10/22/2022 1 1 Reason for Visit * Reason Comments Annual Exam Encounter Details Date Type Department Care Team (Latest Contact Info) Description 09/22/2021 11:45 AM CDT Office Visit [facility] [address] [place] [address] [place] [address] [place] [address] Routine gynecological examination (Primary Dx) Social History Tobacco Use Types Packs/Day Years Used Date Smoking Tobacco: Every Day Cigarettes Smokeless Tobacco: Never Alcohol Use Standard Drinks/Week Comments No 0 (1 standard drink = 0.6 oz pur e alcohol) Comments No Sex and Gender Information Value Date Recorded Sex Assigned at Not on file 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 Bx [facility] Comment:NONE GIVEN SOURCE: [facility] Comment:None given Pap, specimen adequacy [facility] Comment: Satisfactory for evaluation. Endocervical/transformation zone component present. Age and/or menstrual status not provided HPV interp [facility] Comment:Negative for intraep ithelial lesion or malignancy. COMMENTS [facility] Comment: This Pap test has been evaluated with computer assisted technology. Cobol Mainframe Developer [facility] Comment: ABC, CT(ASCP) CT screening location: [place] [address] [place] [address] Comment [facility] Comment: EXPLANATORY NOTE: The Pap is a [...] High Risk E6/E7 Not Detected Not Detected [facility] Comment: Methodology: Burnishing Machine Operator-Mediated Amplification This assay detects E6/E7 viral messenger RNA (mRNA) from 14 high-risk HPV types (16,18,31,33,35,39,45,51,52,56,58,59,66,68). The analytical performance characteristics of this assay have been determined by [facility]. The modifications have not been cleared or approved by the FDA. This assay has been validated pursuant to the CLIA regulations and is used for clinical purposes. For additional information, please refer to http://education.remocean/faq/HQA300u0 (This link if provided for information/ educational purposes only.) Swab 09/22/2021 12:1 0 PM CDT 09/23/2021 12:22 AM CDT Niki Jones DO LAB CYTOLOGY ORDERABLES Final Result [facility] [address] [place] [address] [facility] [address] [place] [address] documented in this encounter Visit Diagnoses Diagnosis Routine gynecological examination- Primary documented in this encounter Discontinued Medications Medication Sig Discontinue Reason Start Date End Da te phentermine (ADIPEX-P) 37.5 mg tablet TAKE 1/2 TABLET BY MOUTH TWICE DAILY TAKE 2ND DOSE BEFORE 2PM Therapy completed 07/20/2018 09/22/2021 documented as of this encounter Care Teams Contracts Administrator Relationship Specialty Start Date End Date Gadiel Majano MD [address] [place] [address] PCP - General 07/06/16 documented as of this encounter
--- OUTSIDE RECORDS SUMMARY | 2024-05-11 15:19 | XMS_ITS | Encounter Summary ---
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
--- OUTSIDE RECORDS SUMMARY | 2024-05-11 15:19 | XMS_ITS | Encounter Summary ---
Author Organization [facility] Medical Group Address [address] [facility] [address] [place] [address] Care Team Providers Care Fish Drier Name Role Phone Gadiel Majano MD Primary Care Provider + Encounter Details Date Type Department Care Team (Late st Contact Info) Description 09/19/2018 Orders Only [facility] [address] [facility] 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
--- OUTSIDE RECORDS SUMMARY | 2024-05-11 15:19 | XMS_ITS | Encounter Summary ---
Author Organization [facility] Address [address] [address] Care Team Providers Care Medical Corps Officer Name Role Phone Gadiel Majano MD Primary Care Provider + Encounter Details Date Type Department Care Team (Late st Contact Info) Description 07/23/2023 Documentation [facility] [address] [address] Zohra Rodriguez Social History [...] on file Legal Sex 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 COMMISSION ASSOCIATE Gender Identity Not on file Sexual Orientation Not on file documented as of this encounter Progress Notes * Zohra Rodriguez - 07/23/2023 11:25 AM CST Pt informed office that she DOES NOT WANT any opioid pain medication IV or prescribed. ISSION ASSOCIATE documented in this encounter Plan of Treatment Not on file documented as of this encounter Visit Diagnoses Not on filedocumented in this encounter Care Teams Medical Corps Officer Relationship Specialty Start Date End Date Gadiel Majano MD [address] [place] [address] PCP - General 07/06/16 documented as of this encounter
--- OUTSIDE RECORDS SUMMARY | 2024-05-11 15:19 | XMS_ITS | Encounter Summary ---
Author Organization [facility] Healthcare Address [address] [place] [address] Care Team Providers Care Value Analysis Coordinator Name Role Phone Gadiel Majano MD Primary Care Provider + Encounter Details Date Type Department Care Team (Late st Contact Info) Description 09/11/2018 4:25 PM CDT Lab [address] [id number] Acute cystitis with hematuria Social History Tobacco Use Types Packs/Day Years Used Date Smoking Tobacco: Every Day Alcohol Use Standard Drinks/Week Comments No 0 (1 standard drink = 0.6 oz pur e alcohol) Comments Unknown Sex and Gender Information Value Date Recorded Sex Assigned at Not on file 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 (.) ANNABELLE Comment:Testing performed by : [facility], [address] [place]., [address] Organism (CLINICALLY INSIGNIFICANT GROWTH [facility] Organism STREPTOCOCCUS AGALACTIAE (GROUP B STREPTOCOCCI) ANNABELLE Urine, clean voided 09/11/2018 8:31 AM CDT 09/11/2018 6:56 PM CDT Narrative [facility] - 09/14/2018 9:35 AM CDT Testing performed by [facility] Microbiology Laboratory ([phone]) Sveta Menendez TRAFFIC CLERK LAB MICROBIOLOGY - [facility] ORDERABLES Final Result [facility] [address] Department [place] [address] documented in this encounter Visit Diagnoses Diagnosis Acute cystitis with hematuria documented in this encounter Care Teams Value Analysis Coordinator Relationship Specialty Start Date End Date Gadiel Majano MD [address] [place] [address] PCP - General 07/06/16 documented as of this encounter
--- OUTSIDE RECORDS SUMMARY | 2024-05-11 15:19 | XMS_ITS | Encounter Summary ---
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 Gender Identity Not on file Sexual Orientation Not on file documented as of this encounter Ordered Prescriptions Prescription Sig Dispense Quantity Refills Last Filled Start Date End Date ibuprofen (ADVIL,MOTRIN) 600 mg tablet Take 1 tablet (600 mg total) by mouth every 6 (six) hours as needed for pain 20 tablet 07/27/2023 lactic tgof-ugzvfx-pgziqxu um (Phexxi) 1.8-1-0.4 % gel vaginal gel Insert 5 g into the vagina as needed (insert into vagina prior to intercourse) 60 g 3 07/27/2023 documented in this encounter Plan of Treatment Not on file documented as of this encounter Visit Diagnoses Not on filedocumented in this encounter Discontinued Medications Medication Sig Discontinue Reason Start Date End Da te lactic even-rtaypm-opmcxvoou (Phexxi) 1.8-1-0.4 % gel vaginal gel Insert 5 g into the vagina as needed (insert into vagina prior to intercourse) Reorder 07/12/2023 07/27/2023 documented as of this encounter Care Teams Brick Siding Applicator Relationship Specialty Start Date End Date Gadiel Majano MD [address] [place] [phone] PCP - General 07/06/16 [place] [address] [place] [address] Consulting Physician Obstetrics and Gynecology 07/26/23 documented as of this encounter
--- OUTSIDE RECORDS SUMMARY | 2024-05-11 15:19 | XMS_ITS | Encounter Summary ---
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
--- OUTSIDE RECORDS SUMMARY | 2024-05-11 15:19 | XMS_ITS | Encounter Summary ---
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 Ultrasound Encounter Details Date Type Department Care Team (Latest Contact Info) Description 07/19/2023 2:00 PM SUPERVISOR CYTOLOGY Procedure visit [facility] [address] [address] Niki Jones, [address] [place] [address] Intrauterine contraceptive device threads lost, [...] file Legal Sex 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 SUPERVISOR CYTOLOGY Gender Identity Not on file Sexual Orientation Not on file documented as of this encounter Last Filed Vital Signs Vital Sign Reading Time Taken Comments Blood Pressure 112/78 07/19/2023 2:20 PM SUPERVISOR CYTOLOGY Pulse - - Temperature - - Respiratory Rate - - Oxygen Saturation - - Inhaled Oxygen Concentration - - Weight 84.8 kg (187 lb) 07/19/2023 2:20 PM SUPERVISOR CYTOLOGY Height 165.1 cm (5' 5 ) 07/19/2023 2:20 PM SUPERVISOR CYTOLOGY Body Mass Index 31.12 07/19/2023 2:20 PM SUPERVISOR CYTOLOGY documented in this encounter Progress Notes * [...] declined removal today. Niki Jones DO 07/26/2023 RVISOR CYTOLOGY documented in this encounter Plan of Treatment Not on file documented as of this encounter Visit Diagnoses Diagnosis Intrauterine contraceptive device threads lost, initial encounter- Primary documented in this encounter Care Teams Crystal Inspector Relationship Specialty Start Date End Date Gadiel Majano MD [address] [facility] [address] [address] PCP - General 07/06/16 documented as of this encounter
--- OUTSIDE RECORDS SUMMARY | 2024-05-11 15:20 | XMS_ITS | Encounter Summary ---
Author Organization [facility] Healthcare Address [address] [place] [address] Care Team Providers Care Time Study Statistician Name Role Phone Unavailable Primary Care Provider Unavailabl e Encounter Details Date Type Department Care Team (Late st Contact Info) Description 02/18/2009 2:51 PM CDT - 02/18/2009 3:37 PM CDT Hospital Encounter [facility] Erwin Hutchins MD [address] [facility] [address] [place] [address] Gadiel Majano MD [address] [place] [address] Sciatica Social History Tobacco Use Types Packs/Day Years Used Date Smoking Tobacco: Never Assessed Comments Unknown Sex and Gender Information Value Date Recorded Sex Assigned at Not on file 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
--- OUTSIDE RECORDS SUMMARY | 2024-05-11 15:20 | XMS_ITS | Encounter Summary ---
Author Organization [facility] Healthcare Address [address] [place] [address] Care Team Providers Care Line Clearance Foreman Name Role Phone Unavailable Primary Care Provider Unavailabl e Encounter Details Date Type Department Care Team (Late st Contact Info) Description 02/22/2009 10:14 AM CDT - 02/22/2009 11:59 PM CDT Hospital Encounter [facility] CLINCONGadiel Maria MD [address] [place] [phone] Pain in joint, pelvic region and thigh Social History Tobacco Use Types Packs/Day Years Used Date Smoking Tobacco: Never Assessed Comments Unknown Sex and Gender Information Value Date Recorded Sex Assigned at Not on file Legal Sex 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 OPERATING ROOM SPECIALIST Gender Identity Not on file Sexual Orientation Not on file documented as of this encounter Plan of Treatment Not on file documented as of this encounter Visit Diagnoses Diagnosis Pain in joint, pelvic region and thigh documented in this encounter
--- OUTSIDE RECORDS SUMMARY | 2024-05-11 15:20 | XMS_ITS | Encounter Summary ---
Author Organization [facility] Healthcare Address [address] [place] [address] Care Team Providers Care President Celebrity Acquistion Name Role Phone Unavailable Primary Care Provider Unavailabl e Encounter Details Date Type Department Care Team (Late st Contact Info) Description 11/22/2007 12:01 AM CDT - 12/09/2007 9:52 AM CDT Hospital Encounter [facility] Benson Clark MD [address] [facility] [address] [place] [phone] Social History Tobacco Use Types Packs/Day Years Used Date Smoking Tobacco: Never Assessed Comments Unknown Sex and Gender Information Value Date Recorded Sex Assigned at Not on file 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
--- OUTSIDE RECORDS SUMMARY | 2024-05-11 15:20 | XMS_ITS | Encounter Summary ---
Author Organization [facility] Facility Care Team Providers Care Feather Drying Machine Operator Name Role Phone Unavailable Primary Care Provider Unavailabl e Encounter Details Date Type Department Care Team (Late st Contact Info) Description 04/25/2007 - 04/25/2007 11:59 PM CARBURETOR MECHANIC Hospital Encounter [facility] Zeus Stephenson MD [address] [facility] [place] [address] Social History Tobacco Use Types Packs/Day Years Used Date Smoking Tobacco: Never Assessed Comments Unknown Sex and Gender Information Value Date Recorded Sex Assigned at Not on file Legal Sex 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 CARBURETOR MECHANIC Gender Identity Not on file Sexual Orientation Not on file documented as of this encounter Plan of Treatment Not on file documented as of this encounter Visit Diagnoses Not on filedocumented in this encounter
--- OUTSIDE RECORDS SUMMARY | 2024-05-11 15:20 | XMS_ITS | Encounter Summary ---
Author Organization [facility] Healthcare Address [address] [place] [address] Care Team Providers Care Clinical Assoc Name Role Phone Gadiel Majano MD Primary Care Provider + Encounter Details Date Type Department Care Team (Late st Contact Info) Description 06/03/2013 3:10 PM PARTY PLAN DEALER - 06/03/2013 11:59 PM PARTY PLAN DEALER Hospital Encounter [facility] Social History Tobacco Use Types Packs/Day Years Used Date Smoking Tobacco: Every Day Alcohol Use Standard Drinks/Week Comments No 0 (1 standard drink = 0.6 oz pur e alcohol) Comments Unknown Sex and Gender Information Value Date Recorded Sex Assigned at Not on file Legal Sex 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 PARTY PLAN DEALER Gender Identity Not on file Sexual Orientation Not on file documented as of this encounter Plan of Treatment Not on file documented as of this encounter Visit Diagnoses Not on filedocumented in this encounter Care Teams Clinical Assoc Relationship Specialty Start Date End Date Gadiel Majano MD [address] [place] [phone] PCP - General 02/23/11 07/05/16 documented as of this encounter
--- OUTSIDE RECORDS SUMMARY | 2024-05-11 15:20 | XMS_ITS | Encounter Summary ---
Author Organization [facility] Healthcare Address [address] [place] [address] Care Team Providers Care Washer Meat Name Role Phone Gadiel Majano MD Primary Care Provider + Encounter Details Date Type Department Care Team (Late st Contact Info) Description 02/10/2016 7:27 AM CDT - 02/10/2016 12:35 PM CDT Hospital Encounter [facility] Arreguin, Fatuma Marcelino MD [address] [place] [address] Urinary tract infection Social History Tobacco Use Types Packs/Day Years Used Date Smoking Tobacco: Every Day Alcohol Use Standard Drinks/Week Comments No 0 (1 standard drink = 0.6 oz pur e alcohol) Comments Unknown Sex and Gender Information Value Date Recorded Sex Assigned at Not on file Legal Sex 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 CABIN CLEANER Gender Identity Not on file Sexual Orientation [...] L ORDERABLES Final Result Performing Organization Address [facility] Co de Phone Number CDR HISTORICAL RESULTS * Urine chorionic gonadotropin (HCG) (02/10/2016 10:38 AM CDT) HCG, ur Negative Negative CDR HISTOR ICAL RESULTS Urine 02/10/2016 10:3 8 AM CDT Historical Provider LAB BLOOD ORDERABLES Enma l Result Performing Organization Address City/[facility]/ZIP Co de Phone Number CDR HISTORICAL RESULTS * (ABNORMAL) Urinalysis (02/10/2016 10:38 AM CDT) Color, ur [place](A) Yellow CDR HISTORICAL RESULTS Clarity, ur Clear [...] RESULTS Urine 02/10/2016 10:3 8 AM CDT [facility] Provider LAB BLOOD ORDERABLES Enma chery Result Performing Organization Address [facility] Co de Phone Number CDR HISTORICAL RESULTS [...] ORDERABLES Enma chery Result Performing Organization Address [facility] de Phone Number CDR HISTORICAL RESULTS [...] RESULTS Plasma 02/10/2016 8:22 AM CDT Result [facility] Historical Provider LAB BLOOD ORDERABLES Enma l Result Performing Organization Address [facility] Co de Phone Number CDR HISTORICAL RESULTS * Blood cell morphologic exam, manual (02/10/2016 8:22 AM CDT) Platelet estimate Adequate CDR HISTORICAL RESULTS RBC morphology Normal CDR H ISTORICAL RESULTS Blood specimen (specimen) 02/10/2016 8:22 AM CDT Historical Provider LAB BLOOD ORDERABLES Enma l Result Performing Organization Address City/[facility]/ZIP Co de Phone Number CDR HISTORICAL [...] ORDERABLES Enma chery Result Performing Organization Address [facility]/ZIP Co de Phone Number CDR HISTORICAL [...] Possible Kidney Failure ?< 15 ??mL/min/1.73m2 If -Swazi multiply value by 1.16. ??Estimated glomerular filtration [...] specified documented in this encounter Care Teams Washer Meat Relationship Specialty Start Date End Date Gadiel Majano MD [address] [place] [phone] PCP - General 02/23/11 07/05/16 documented as of this encounter
--- OUTSIDE RECORDS SUMMARY | 2024-05-11 15:20 | XMS_ITS | Encounter Summary ---
Author Organization [facility] Facility Care Team Providers Care Mandolin Repairer Name Role Phone Gadiel Majano MD Primary Care Provider + Encounter Details Date Type Department Care Team (Late st Contact Info) Description 08/23/2011 12:01 AM CDT - 09/21/2011 11:59 PM CDT Hospital Encounter [facility] Sudhir Wilkes MD [address] [facility] [facility] [facility] [address] [place] [address] Social History Tobacco Use Types Packs/Day Years Used Date Smoking Tobacco: Every Day Alcohol Use Standard Drinks/Week Comments No 0 (1 standard drink = 0.6 oz pur e alcohol) Comments Unknown Sex and Gender Information Value Date Recorded Sex Assigned at Not on file 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
--- OUTSIDE RECORDS SUMMARY | 2024-05-11 15:20 | XMS_ITS | Encounter Summary ---
Author Organization [facility] Healthcare Address [address] [place] [address] Care Team Providers Care Order Caller Name Role Phone Unavailable Primary Care Provider Unavailabl e Encounter Details Date Type Department Care Team (Late st Contact Info) Description 11/09/2007 12:01 AM CDT - 11/21/2007 11:59 PM CDT Hospital Encounter [facility] Benson Clark MD [address] [facility] 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
--- OUTSIDE RECORDS SUMMARY | 2024-05-11 15:20 | XMS_ITS | Encounter Summary ---
Author Organization [facility] Facility Care Team Providers Care Brattice Builder Name Role Phone Gadiel Majano MD Primary Care Provider + Encounter Details Date Type Department Care Team (Late st Contact Info) Description 09/22/2011 12:01 AM CDT - 10/22/2011 11:59 PM CDT Hospital Encounter [facility] Sudhir Wilkes MD [address] [facility] [address] [place] [address] Social History Tobacco Use Types Packs/Day Years Used Date Smoking Tobacco: Every Day Alcohol Use Standard Drinks/Week Comments No 0 (1 standard drink = 0.6 oz pur e alcohol) Comments Unknown Sex and Gender Information Value Date Recorded Sex Assigned at Not on file Legal Sex 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 TRANSPLANT COORDINATOR Gender Identity Not on file Sexual Orientation Not on file documented as of this encounter Plan of Treatment Not on file documented as of this encounter Visit Diagnoses Not on filedocumented in this encounter Care Teams Brattice Builder Relationship Specialty Start Date End Date Gadiel Majano MD [address] [place] [address] PCP - General 02/23/11 07/05/16 documented as of this encounter
--- OUTSIDE RECORDS SUMMARY | 2024-05-11 15:20 | XMS_ITS | Encounter Summary ---
Author Organization [facility] Healthcare Address [address] [place] [address] Care Team Providers Care Spoon Maker Name Role Phone Gadiel Majano MD Primary Care Provider + Encounter Details Date Type Department Care Team (Late st Contact Info) Description 04/01/2011 8:23 AM SUPERVISOR SHIPFITTERS - 04/01/2011 11:59 PM SUPERVISOR SHIPFITTERS Hospital Encounter [facility] [place]INCONV [place], [place] [address] [facility] [address] [place] [phone] Urinary tract infection Social History Tobacco Use Types Packs/Day Years Used Date Smoking Tobacco: Every Day Alcohol Use Standard Drinks/Week Comments No 0 (1 standard drink = 0.6 oz pur e alcohol) Comments Unknown Sex and Gender Information Value Date Recorded Sex Assigned at Not on file Legal Sex 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 SUPERVISOR SHIPFITTERS Gender Identity Not on file Sexual Orientation Not on file documented as of this encounter Plan of Treatment Not on file documented as of this encounter Visit Diagnoses Diagnosis Urinary tract infection Urinary tract infection, site not specified documented in this encounter Care Teams Spoon Maker Relationship Specialty Start Date End Date Gadiel Majano MD [address] [place] [phone] PCP - General 02/23/11 07/05/16 documented as of this encounter
--- OUTSIDE RECORDS SUMMARY | 2024-05-11 15:20 | XMS_ITS | Encounter Summary ---
Author Organization [facility] Healthcare Address [address] [place] [address] Care Team Providers Care Flat Spring Assembler Name Role Phone Rashaun Reyez MD Primary Care Provider + Encounter Details Date Type Department Care Team (Late st Contact Info) Description 06/03/2013 3:38 PM ASSISTANT SUPERINTENDENT FOR CURRICULUM - 06/03/2013 7:02 PM ASSISTANT SUPERINTENDENT FOR CURRICULUM Hospital Encounter [facility] Curtis Corcoran MD [address] [facility] [address] [place] [address] Urinary tract infection; Other specified cardiac dysrhythmias Social History Tobacco Use Types Packs/Day Years Used Date Smoking Tobacco: Every Day Alcohol Use Standard Drinks/Week Comments No 0 (1 standard drink = 0.6 oz pur e alcohol) Comments Unknown Sex and Gender Information Value Date Recorded Sex Assigned at Not on file Legal Sex 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 ASSISTANT SUPERINTENDENT FOR CURRICULUM Gender Identity Not on file Sexual Orientation Not on file documented as of this encounter Plan of Treatment Not on file documented as of this encounter Procedures Procedure Name Priority Date/Time Associated Diagnosis Comments DISCHARGE CUMULATIVE SUMMARY ADDENDUM Routine 06/08/2013 12:29 AM ASSISTANT SUPERINTENDENT FOR CURRICULUM SERUM THYROXINE (T4), FREE Routine 06/03 5:15 PM ASSISTANT SUPERINTENDENT FOR CURRICULUM SERUM THYROID-STIMULATING HORMONE (TSH) Routine 06/03/2013 5:15 PM ASSISTANT SUPERINTENDENT FOR CURRICULUM SERUM COMPREHENSIVE METABOLIC PANEL Routine 06/03/2013 5:15 PM ASSISTANT SUPERINTENDENT FOR CURRICULUM BLOOD WBC CELL MORPHOLOGIC EXAM, AUTO Routine 06/03/2013 5:15 PM ASSISTANT SUPERINTENDENT FOR CURRICULUM BLOOD CELL COUNT (CBC) Routine 4 5:15 PM ASSISTANT SUPERINTENDENT FOR CURRICULUM XR CHEST PA LATERAL 2 VIEWS Routine 06/03/2013 4:41 PM ASSISTANT SUPERINTENDENT FOR CURRICULUM URINE MICROSCOPY Routine 06/03/2013 4:10 PM ASSISTANT SUPERINTENDENT FOR CURRICULUM URINE CHORIONIC GONADOTROPIN (HCG) Routine 06/03/2013 4:10 PM ASSISTANT SUPERINTENDENT FOR CURRICULUM URINE CHLAMYDIA, GONORRHEA DNA Routine 06/03/2013 4:10 PM ASSISTANT SUPERINTENDENT FOR CURRICULUM URINALYSIS Routine 06/03/2013 4:10 PM ASSISTANT SUPERINTENDENT FOR CURRICULUM SERUM THEOPHYLLINE DRUG LEVEL Routine 06/03/2013 11:15 AM ASSISTANT SUPERINTENDENT FOR CURRICULUM ELECTROCARDIOGRAPHY (ECG) 06/03/2013 DISCHARGE LABORATORY CUMULATIVE REPORT Routine 06/03/2013 12:00 AM ASSISTANT SUPERINTENDENT FOR CURRICULUM documented in this encounter Results * Discharge Cumulative Summary Addendum (06/08/2013 12:29 AM ASSISTANT SUPERINTENDENT FOR CURRICULUM) 06/08/2013 12:2 9 AM ASSISTANT SUPERINTENDENT FOR CURRICULUM Narrative HISTORICAL RESULTS - 06/08/2013 12:29 AM ASSISTANT SUPERINTENDENT FOR CURRICULUM Patient No: [id number] ? [facility] Patient Name: TRAVON CORRAL ?[facility] Healthcare Age: 22 YRS ?: 1990 ?Sex:F ?[address] )[phone] ?? Adm Dt: 06/03/2013 ?[place] Chowdhury ??[id number] Created: 06/08/2013 ??0029 ?? Pt. Type: E ? Discharge Dt: 06/03/2013 ? Pathologists: Katey Sales MD Admit Attend Dr: CURTIS CORCORAN MD ?MICROBIAL SEROLOGY ?Collection Date: ?06/03/13 ?Collection Time: ?1610 ? Ref Range: ?? Units: ?URINE CHLAM+GC @ ?SEE REPT @ = URINE CHLAM+GC Performed at ??[facility] ?? [facility], [place] ?? END OF CHART ? Page: ?? 1 us Historical Provider MD LAB MICROBIOLOGY - GENERA L ORDERABLES Final Result Performing Organization Address [facility] de Phone Number HISTORICAL RESULTS * Serum thyroid-stimulating hormone (TSH) (06/03/2013 5:15 PM ASSISTANT SUPERINTENDENT FOR CURRICULUM) Pathologist [facility] TSH 0.63 0.35 - 4.80 mcIUnits/ml HISTORICAL RESULTS Serum 06/03/2013 5:15 PM ASSISTANT SUPERINTENDENT FOR CURRICULUM Curtis Corcoran MD LAB BLOOD ORDERABLES Final Result Performing Organization Address [place] de Phone Number HISTORICAL RESULTS * Serum thyroxine (T4), free (06/03/2013 5:15 PM ASSISTANT SUPERINTENDENT FOR CURRICULUM) Pathologist [facility] Free T4 1.1 0.7 - 1.3 ng/dl HISTORICAL RESULTS Serum 06/03/2013 5:15 PM ASSISTANT SUPERINTENDENT FOR CURRICULUM Curtis Corcoran MD LAB BLOOD ORDERABLES Final Result Performing Organization Address [facility] de Phone Number HISTORICAL RESULTS * (ABNORMAL) Blood cell count (CBC) (06/03/2013 5:15 PM ASSISTANT SUPERINTENDENT FOR CURRICULUM) Pathologist [facility] WBC 8.5 4.0 - 10.5 K/cumm HISTORICAL [...] RESULTS Blood specimen (specimen) 06/03/2013 5:15 PM ASSISTANT SUPERINTENDENT FOR CURRICULUM Curtis Corcoran MD LAB BLOOD ORDERABLES Final Result Performing Organization Address City/[facility] Co de Phone Number HISTORICAL RESULTS * (ABNORMAL) Blood WBC cell morphologic exam, auto (06/03/2013 5:15 PM ASSISTANT SUPERINTENDENT FOR CURRICULUM) Lymphocytes 6.7(L) 25.0 - 33.0 % HISTORICAL [...] RESULTS Blood specimen (specimen) 06/03/2013 5:15 PM ASSISTANT SUPERINTENDENT FOR CURRICULUM Curtis Corcoran MD LAB BLOOD ORDERABLES Final Result Performing Organization Address City/[facility] de Phone Number HISTORICAL RESULTS * (ABNORMAL) Serum comprehensive metabolic panel (06/03/2013 5:15 PM ASSISTANT SUPERINTENDENT FOR CURRICULUM) BUN 8.0 6.0 - 23.0 mg/dl HISTORICAL [...] RESULTS Comment: eGFR: >70 ml/min/1.73sq.m if non -Qatari. eGFR: >70 ml/min/1.73sq.m if -Qatari. AVE GFR for 20-29 yr. age group: [...] Units/L HISTORICAL RESULTS Serum 06/03/2013 5:15 PM ASSISTANT SUPERINTENDENT FOR CURRICULUM Curtis Corcoran MD LAB BLOOD ORDERABLES Final Result HISTORICAL RESULTS * XR Chest PA Lateral 2 View (06/03/2013 4:41 PM ASSISTANT SUPERINTENDENT FOR CURRICULUM) Anatomical Region Laterality Modality Body, Chest N/A Radiographic Shanti ging 06/03/2013 4:41 PM ASSISTANT SUPERINTENDENT FOR CURRICULUM Narrative 06/05/2013 6:19 AM ASSISTANT SUPERINTENDENT FOR CURRICULUM XR Chest 2 Views ?[id number] ??Acc#: ??[id number] DATE OF EXAM: ??Jun 03 2013 CLINICAL [...] Mehul - 09/16/2016 XR Chest 2 Views [id number] Acc#: [id number] DATE OF EXAM: Jun 03 2013 CLINICAL [...] Urine Chlamydia, Gonorrhea DNA (06/03/2013 4:10 PM ASSISTANT SUPERINTENDENT FOR CURRICULUM) Chlamydia DNA, ur See Report HISTORICAL RESULTS Urine 06/03/2013 4:10 PM ASSISTANT SUPERINTENDENT FOR CURRICULUM us Curtis Corcoran MD LAB BLOOD ORDERABLES Final Result Performing Organization Address [facility] de Phone Number HISTORICAL RESULTS * Urine chorionic gonadotropin (HCG) (06/03/2013 4:10 PM ASSISTANT SUPERINTENDENT FOR CURRICULUM) HCG, ur Negative NEGATIVE HISTORICAL RESULTS Urine 06/03/2013 4:10 PM ASSISTANT SUPERINTENDENT FOR CURRICULUM Curtis Corcoran MD LAB BLOOD ORDERABLES Final Result Performing Organization Address [facility] de Phone Number HISTORICAL RESULTS * (ABNORMAL) Urinalysis (06/03/2013 4:10 PM ASSISTANT SUPERINTENDENT FOR CURRICULUM) Color, ur YELLOW YELLOW HISTORICAL RESULTS Clarity, [...] NEGATIVE HISTORICAL RESULTS Urine 06/03/2013 4:10 PM ASSISTANT SUPERINTENDENT FOR CURRICULUM Curtis Corcoran MD LAB BLOOD ORDERABLES Final Result Performing Organization Address [place] de Phone Number HISTORICAL RESULTS * (ABNORMAL) Urine microscopy (06/03/2013 4:10 PM ASSISTANT SUPERINTENDENT FOR CURRICULUM) WBC, ur 0 - 2 0 - [...] NEGATIVE HISTORICAL RESULTS Urine 06/03/2013 4:10 PM ASSISTANT SUPERINTENDENT FOR CURRICULUM us Curtis Corcoran MD LAB BLOOD ORDERABLES Final Result HISTORICAL RESULTS * (ABNORMAL) Serum theophylline drug level (06/03/2013 11:15 AM ASSISTANT SUPERINTENDENT FOR CURRICULUM) Van <2.0(A) 10.0 - 20.0 mcg/ml HISTORICAL RESULTS Serum 06/03/2013 11:1 5 AM ASSISTANT SUPERINTENDENT FOR CURRICULUM Narrative HISTORICAL RESULTS - 06/03/2013 12:12 PM ASSISTANT SUPERINTENDENT FOR CURRICULUM THERAPEUTIC RANGE: 10-20 UG/ML TOXIC RANGE: ??GREATER THAN 20 UG/ML us Curtis Corcoran MD LAB BLOOD ORDERABLES Final Result Performing Organization Address [facility] de Phone Number HISTORICAL RESULTS * Discharge Laboratory Cumulative Report (06/03/2013 12:00 AM ASSISTANT SUPERINTENDENT FOR CURRICULUM) 06/03/2013 Narrative HISTORICAL RESULTS - 06/04/2013 2:28 AM ASSISTANT SUPERINTENDENT FOR CURRICULUM Patient No: [id number] ? [facility] Patient Name: TRAVON CORRAL ?[facility] Healthcare Age: 22 YRS ?: 1990 ?Sex:F ?[address] )[id number] ?? Adm Dt: 06/03/2013 ?[place], [place] ??[address] Created: 06/04/2013 ??0228 ?? Pt. Type: E [...] ?? CONTINUED ?Page: ?? 1 Patient No: [id number] ? [facility] Patient Name: TRAVON CORRAL ?[facility] Healthcare Age: 22 YRS ?: 1990 ?Sex:F ?[address] )[phone] ?? Adm Dt: 06/03/2013 ?[place], [place] ??[address] Created: 06/04/2013 ??0228 ?? Pt. Type: E [...] ?? CONTINUED ?Page: ?? 2 Patient No: [id number] ? [facility] Patient Name: TRAVON CORRAL ?[facility] Healthcare Age: 22 YRS ?: 1990 ?Sex:F ?[address] )[id number] ?? Adm Dt: 06/03/2013 ?[place] ??[id number] Created: 06/04/2013 ??0228 ?? Pt. Type: E ? Discharge Dt: 06/03/2013 ? Pathologists: Katey Sales MD Admit Attend Dr: CURTIS CORCORAN MD ? GENERAL CHEMISTRY ?Collection Date: ?06/03/13 ?Collection Time: ?1715 ? Ref Range: ?? Units: [0.60-1.30] ??MG/DL ?CREATININE ?0.81 f ?06/03/13 1715 eGFR: >70 ml/min/1.73sq.m if non -Qatari. eGFR: >70 ml/min/1.73sq.m if -Qatari. AVE GFR for 20-29 yr. age group: ??116 ml/min/1.73sq.m Calculated using the MDRD Equation FOOTNOTE ADDED ON ?? 06/03/13 ?? AT 1756 BY 999 ?THYROID FUNCTION TESTS ?Collection Date: ?06/03/13 ?Collection Time: ?1715 ? Ref Range: ?? Units: [0.7-1.3] ?? NG/DL ?FREE T4 ?1.1 [0.35-4.80] ??uIU/ML ? TSH ? 0.63 Footnotes and Symbols: f = Footnote ?? CONTINUED ?Page: ?? 3 Patient No: [id number] ? [facility] Patient Name: TRAVON CORRAL ?[facility] Healthcare Age: 22 YRS ?: 1990 ?Sex:F ?[address] )[phone] ?? Adm Dt: 06/03/2013 ?[place], [place] ??[address] Created: 06/04/2013 ??0228 ?? Pt. Type: E [...] ?? CONTINUED ?Page: ?? 4 Patient No: [id number] ? [facility] Patient Name: TRAVON CORRAL ?[facility] Healthcare Age: 22 YRS ?: 1990 ?Sex:F ?[address] )[id number] ?? Adm Dt: 06/03/2013 ?[place] ??[address] Created: 06/04/2013 ??0228 ?? Pt. Type: E [...] dysrhythmias documented in this encounter Care Teams Flat Spring Assembler Relationship Specialty Start Date End Date Rashaun Reyez MD [address] [place] [address] [place] [phone] PCP - General 02/23/11 07/05/16 documented as of this encounter
--- OUTSIDE RECORDS SUMMARY | 2024-05-11 15:20 | XMS_ITS | Encounter Summary ---
Author Organization [facility] Healthcare Address [address] [place] [address] Care Team Providers Care Film Masker Name Role Phone Unavailable Primary Care Provider Unavailabl e Encounter Details Date Type Department Care Team (Late st Contact Info) Description 09/21/2006 12:01 AM CDT - 10/21/2006 11:59 PM CDT Hospital Encounter [facility] Pooja Nichols MD [address] [place] [address] [address] Social History Tobacco Use Types Packs/Day Years Used Date Smoking Tobacco: Never Assessed Comments Unknown Sex and Gender Information Value Date Recorded Sex Assigned at Not on file Legal Sex 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 RCIS Gender Identity Not on file Sexual Orientation Not on file documented as of this encounter Plan of Treatment Not on file documented as of this encounter Visit Diagnoses Not on filedocumented in this encounter
--- OUTSIDE RECORDS SUMMARY | 2024-05-11 15:20 | XMS_ITS | Encounter Summary ---
Author Organization [facility] Address [address] [facility] [address] [place] [address] Care Team Providers Care Hospice/Home Health Aide Name Role Phone Gadiel Majano MD Primary Care Provider + Reason for Visit * Reason Comments Initial Psychiatric Evaluation Encounter Details Date Type Department Care Team (Late st Contact Info) Description 11/05/2016 11:00 AM CDT Office Visit [facility] [address] [phone] [place] [phone] [place] [phone] Moderate episode of recurrent major depressive disorder (CMS/HCC); KARIME (generalized anxiety disorder) Social History Tobacco Use Types Packs/Day Years Used Date Smoking Tobacco: Every Day Alcohol Use Standard Drinks/Week Comments No 0 (1 standard drink = 0.6 oz pur e alcohol) Comments Unknown Sex and Gender Information Value Date Recorded Sex Assigned at Not on file Legal Sex 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 ROW BOSS Gender Identity Not on file Sexual Orientation [...] 26-year-old single, never woman currently residing in [facility]. She is deemed to be a reliable [...] continues to go to work during these pfnry-[id number] it???s dreadful for her to do so. [...] for anxiety related to generalized issues. Past manager post: No Substance Abuse Treatment: Denies Family medical history: Mother: 56 years issues, alive. ???Hard working, single mother.?? She does not have any mental health or substance use issues. Has a positive relationship with her mother. 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 . Father: 60 years old, alive. ???Conservative, traditional.?? He does not reportedly have any mental health or substance use issues. Only speaks with her father 4 times per year. 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 . Social History: Born: [place], [place] Raised: [place], [place] Parents: Grew up with only her [...] the same room together. Siblings: One half [id number] -32 years old. Positive relationship with him. [...] school. 3 class I graduate school. Attending grad[employer]gayatri at [employer]-obtaining a master???s degree in business administration. Highest grade level: Currently enrolled in graduate school Relationship status: Single, not in a relationship Kids: Zero Anglican: None. Her father is very restorationism but she has not. 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 Financial [...] disorder documented in this encounter Care Teams Hospice/Home Health Aide Relationship Specialty Start Date End Date Gadiel Majano MD [address] [place] [address] PCP - General 07/06/16 documented as of this encounter
--- OUTSIDE RECORDS SUMMARY | 2024-05-11 15:20 | XMS_ITS | Encounter Summary ---
Author Organization [facility] Healthcare Address [address] [place] [address] Care Team Providers Care Ruby On Rails Web Developer Name Role Phone Gadiel Majano MD Primary Care Provider + Encounter Details Date Type Department Care Team (Late st Contact Info) Description 03/02/2011 9:30 AM CDT - 03/02/2011 11:59 PM CDT Hospital Encounter [facility] Yady Yates, SPECIAL POLICE OFFICER [address] [facility] [facility] [address] [address] Social History Tobacco Use Types Packs/Day Years Used Date Smoking Tobacco: Every Day Alcohol Use Standard Drinks/Week Comments No 0 (1 standard drink = 0.6 oz pur e alcohol) Comments Unknown Sex and Gender Information Value Date Recorded Sex Assigned at Not on file Legal Sex 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 SENIOR C DEVELOPER Gender Identity Not on file Sexual Orientation Not on file documented as of this encounter Plan of Treatment Not on file documented as of this encounter Visit Diagnoses Not on filedocumented in this encounter Care Teams Ruby On Rails Web Developer Relationship Specialty Start Date End Date Gadiel Majano MD [address] [place] [phone] PCP - General 02/23/11 07/05/16 documented as of this encounter
--- OUTSIDE RECORDS SUMMARY | 2024-05-11 15:20 | XMS_ITS | Encounter Summary ---
Author Organization [facility] Healthcare Address [address] [place] [address] Care Team Providers Care Desk Clerks Supervisor Name Role Phone Gadiel Majano MD Primary Care Provider + Encounter Details Date Type Department Care Team (Late st Contact Info) Description 02/27/2011 8:44 AM CDT - 02/27/2011 11:59 PM CDT Hospital Encounter [facility] Yady Yates, ENVIRONMENTAL RESTORATION PLANNER [address] [facility] [address] TRAN [address] [address] Symptom associated with female genital organs Social History Tobacco Use Types Packs/Day Years Used Date Smoking Tobacco: Every Day Alcohol Use Standard Drinks/Week Comments No 0 (1 standard drink = 0.6 oz pur e alcohol) Comments Unknown Sex and Gender Information Value Date Recorded Sex Assigned at Not on file Legal Sex 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 MACHINE FELLER Gender Identity Not on file Sexual Orientation Not on file documented as of this encounter Plan of Treatment Not on file documented as of this encounter Visit Diagnoses Diagnosis Symptom associated with female genital organs documented in this encounter Care Teams Desk Clerks Supervisor Relationship Specialty Start Date End Date Gadiel Majano MD [address] [place] [phone] PCP - General 02/23/11 07/05/16 documented as of this encounter
--- OUTSIDE RECORDS SUMMARY | 2024-05-11 15:20 | XMS_ITS | Encounter Summary ---
Author Organization [facility] Healthcare Address [address] [place] [address] Care Team Providers Care Shot Fireman Name Role Phone Unavailable Primary Care Provider [...] on file Legal Sex 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 PLANNING ANALYST Gender Identity Not on file Sexual Orientation Not on file documented as of this encounter Plan of Treatment Not on file documented as of this encounter Visit Diagnoses Diagnosis examination or test, unconfirmed documented in this encounter
--- OUTSIDE RECORDS SUMMARY | 2024-05-11 15:20 | XMS_ITS | Encounter Summary ---
Author Organization [facility] Healthcare Address [address] [place] [address] Care Team Providers Care Gusset Maker Name Role Phone Gadiel Majano MD Primary Care Provider + Encounter Details Date Type Department Care Team (Late st Contact Info) Description 06/10/2015 2:15 PM MANAGEMENT PSYCHOLOGIST - 06/10/2015 11:59 PM MANAGEMENT PSYCHOLOGIST Hospital Encounter [facility] Aj Fitzgerald MD [address] [facility] [address] [place] [address] Cassidy Mcelroy, STITCH BURNISHER [address] [facility] [address] Urinary tract infection Social History Tobacco Use Types Packs/Day Years Used Date Smoking Tobacco: Every Day Alcohol Use Standard Drinks/Week Comments No 0 (1 standard drink = 0.6 oz pur e alcohol) Comments Unknown Sex and Gender Information Value Date Recorded Sex Assigned at Not on file Legal Sex 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 MANAGEMENT PSYCHOLOGIST Gender Identity Not on file Sexual Orientation Not on file documented as of this encounter Plan of Treatment Not on file documented as of this encounter Procedures Procedure Name Priority Date/Time Associated Diagnosis Comments URINE (AEROBIC) CULTURE, CDR Routine 06/10/2015 2:15 PM MANAGEMENT PSYCHOLOGIST DISCHARGE LABORATORY CUMULATIVE REPORT 06/10/2015 documented in this encounter Results * Urine (aerobic) culture (06/10/2015 2:15 PM MANAGEMENT PSYCHOLOGIST) Urine, clean voided (Unknown) 06/10/2015 2:15 PM MANAGEMENT PSYCHOLOGIST Narrative HISTORICAL RESULTS - 06/13/2015 7:10 AM MANAGEMENT PSYCHOLOGIST Less than 10,000 colonies/ml of Gram Negative [...] specified documented in this encounter Care Teams Gusset Maker Relationship Specialty Start Date End Date Gadiel Majano MD [address] [place] [phone] PCP - General 02/23/11 07/05/16 documented as of this encounter
--- OUTSIDE RECORDS SUMMARY | 2024-05-11 15:20 | XMS_ITS | Encounter Summary ---
Author Organization [facility] Healthcare Address [address] [place] [address] Care Team Providers Care Inventory Control Specialist Name Role Phone Gadiel Majano MD Primary Care Provider + Encounter Details Date Type Department Care Team (Late st Contact Info) Description 06/18/2015 7:03 AM FREIGHT SERVICE INSPECTOR - 06/18/2015 7:45 AM FREIGHT SERVICE INSPECTOR Hospital Encounter [facility] Baldo Mitchell MD 1 [facility] [place] [address] Acute cystitis without hematuria; Cigarette nicotine dependence, uncomplicated; Personal history of urinary infection Social History Tobacco Use Types Packs/Day Years Used Date Smoking Tobacco: Every Day Alcohol Use Standard Drinks/Week Comments No 0 (1 standard drink = 0.6 oz pur e alcohol) Comments Unknown Sex and Gender Information Value Date Recorded Sex Assigned at Not on file Legal Sex 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 FREIGHT SERVICE INSPECTOR Gender Identity Not on file Sexual Orientation Not on file documented as of this encounter Plan of Treatment Not on file documented as of this encounter Visit Diagnoses Diagnosis Acute cystitis without hematuria Cigarette nicotine dependence, uncomplicated Personal history of urinary infection documented in this encounter Care Teams Inventory Control Specialist Relationship Specialty Start Date End Date Gadiel Majano MD [address] [place] [phone] PCP - General 02/23/11 07/05/16 documented as of this encounter
--- OUTSIDE RECORDS SUMMARY | 2024-05-11 15:20 | XMS_ITS | Encounter Summary ---
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 Yes Location provided for therapy services is: Patient requested/Patient preferred Comments Evaluate and Treat Reason for Visit * Reason Comments Pain Encounter Details Date Type Department Care Team (Latest Contact Info) Description 11/30/2016 9:15 AM CDT Office Visit [facility] Orthopedics and Sports Medicine [address] [place] [phone] Tiara Carlos MD [address] [place] [address] Tear of ulnar collateral ligament of left [...] on file Legal Sex 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 SALES REPRESENTATIVE [employer]INE [employer]PLIES Gender Identity Not on file Sexual Orientation [...] christy she usually has her care at [facility], but they couldn't get her in until December. Pain is worse with use and sleeping. Nothing seems to make the pain better. RHD. Pain Assessment Pain Assessment: 0-10 Pain Descriptors: Aching Pain Frequency: Constant/continuous Date Pain First Started: 11/09/16 PAST MEDICAL HISTORY She has a past medical history of Cancer (CMS/[facility]). PAST SURGICAL HISTORY She has a past [...] images with Trinh. Recommend PT at [facility] in [place] to start working on ROM and strength. [...] nerve documented in this encounter Care Teams Conveyor Weigher Operator Relationship Specialty Start Date End Date Gadiel Majano MD [address] [place] [phone] PCP - General 07/06/16 documented as of this encounter
--- OUTSIDE RECORDS SUMMARY | 2024-05-11 15:20 | XMS_ITS | Encounter Summary ---
Author Organization [facility] Healthcare Address [address] [place] [address] Care Team Providers Care Bmw Service Technician Name Role Phone Gadiel Majano MD Primary Care Provider + Encounter Details Date Type Department Care Team (Late st Contact Info) Description 07/06/2016 8:50 PM SWEETBREAD TRIMMER - 07/06/2016 10:44 PM SWEETBREAD TRIMMER [facility] Emergency Department [address] [place] [address] Erwin Hutchins MD [facility] [place] [address] Discharge Disposition: Discharge to home or self care Social History Tobacco Use Types Packs/Day Years Used Date Smoking Tobacco: Every Day Alcohol Use Standard Drinks/Week Comments No 0 (1 standard drink = 0.6 oz pur e alcohol) Comments Unknown Sex and Gender Information Value Date Recorded Sex Assigned at Not on file Legal Sex 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 SWEETBREAD TRIMMER Gender Identity Not on file Sexual Orientation Not on file documented as of this encounter Discharge Disposition Disposition Code Departure Means Destination Discharge to home or self care documented in this encounter Plan of Treatment Not on file documented as of this encounter Procedures Procedure Name Priority Date/Time Associated Diagnosis Comments URINE CHORIONIC GONADOTROPIN (HCG) Routine 07/06/2016 10:00 PM SWEETBREAD TRIMMER URINALYSIS Routine 07/06/2016 10:00 PM SWEETBREAD TRIMMER documented in this encounter Results * Urine chorionic gonadotropin (HCG) (07/06/2016 10:00 PM SWEETBREAD TRIMMER) HCG, ur Negative Negative CDR HISTOR ICAL RESULTS Urine 07/06/2016 10:0 0 PM SWEETBREAD TRIMMER [facility] EKG MONITOR LAB BLOOD ORDERABLES Fi nal Result Performing Organization Address [facility] de Phone Number CDR HISTORICAL RESULTS * Urinalysis (07/06/2016 10:00 PM SWEETBREAD TRIMMER) Color, ur Yellow Yellow CDR HISTOR ICAL [...] HISTORICAL RESULTS Urine 07/06/2016 10:0 0 PM SWEETBREAD TRIMMER [facility] EKG MONITOR LAB BLOOD ORDERABLES Fi nal Result Performing Organization Address [facility] de Phone Number CDR HISTORICAL RESULTS documented in this encounter Visit Diagnoses Not on filedocumented in this encounter Care Teams Bmw Service Technician Relationship Specialty Start Date End Date Gadiel Majano MD [address] [facility] [facility] [place] [phone] PCP - General 07/06/16 documented as of this encounter
--- OUTSIDE RECORDS SUMMARY | 2024-05-11 15:20 | XMS_ITS | Encounter Summary ---
Author Organization [facility] Healthcare Address [address] [place] [address] Care Team Providers Care Explosive Ordnance Disposal Manager Name Role Phone Unavailable Primary Care Provider Unavailabl e Encounter Details Date Type Department Care Team (Late st Contact Info) Description 08/22/2006 12:01 AM CDT - 09/20/2006 11:59 PM CDT Hospital Encounter [facility] Pooja Nichols MD [address] [place] [address] [address] Social History Tobacco Use Types Packs/Day Years Used Date Smoking Tobacco: Never Assessed Comments Unknown Sex and Gender Information Value Date Recorded Sex Assigned at Not on file 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
--- OUTSIDE RECORDS SUMMARY | 2024-05-11 15:20 | XMS_ITS | Encounter Summary ---
Author Organization [facility] Healthcare Facility Care Team Providers Care Dragger Name Role Phone Gadiel Majano MD Primary Care Provider + Encounter Details Date Type Department Care Team (Late st Contact Info) Description 08/10/2011 10:42 AM CDT - 08/22/2011 11:59 PM CDT Hospital Encounter [facility] Sudhir Wilkes MD [address] [facility] [address] [place] [address] Social History Tobacco Use Types Packs/Day Years Used Date Smoking Tobacco: Every Day Alcohol Use Standard Drinks/Week Comments No 0 (1 standard drink = 0.6 oz pur e alcohol) Comments Unknown Sex and Gender Information Value Date Recorded Sex Assigned at Not on file Legal Sex 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 DATA CLERK Gender Identity Not on file Sexual Orientation Not on file documented as of this encounter Plan of Treatment Not on file documented as of this encounter Visit Diagnoses Not on filedocumented in this encounter Care Teams Dragger Relationship Specialty Start Date End Date Gadiel Majano MD [address] [place] [phone] PCP - General 02/23/11 07/05/16 documented as of this encounter
--- OUTSIDE RECORDS SUMMARY | 2024-05-11 15:20 | XMS_ITS | Encounter Summary ---
Author Organization [facility] Address [address] [facility] [address] [place] [address] Care Team Providers Care Affirmative Action Officer Name Role Phone Gadiel Majano MD Primary Care Provider + Reason for Visit * Reason Comments Urinary Symptom Pt c/o dysuria with increased frequency and flank pain x1 day Encounter Details Date Type Department Care Team (Late st Contact Info) Description 09/11/2018 8:15 AM CDT Office Visit [facility] [address] [facility] [place] [address] Sveta Menendez, MACARIO [address] [place] [address] Acute cystitis with hematuria (Primary [...] on file 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 (.) ANNABELLE Comment:Testing performed by : [facility], [address] [place]., [address] Organism (CLINICALLY INSIGNIFICANT GROWTH [facility] Organism STREPTOCOCCUS AGALACTIAE (GROUP B STREPTOCOCCI) [facility] Urine, clean voided 09/11/2018 8:31 AM CDT 09/11/2018 6:56 PM CDT Narrative ANNABELLE - 09/14/2018 9:35 AM CDT Testing performed by [facility] Microbiology Laboratory ([phone]) Sveta Menendez NP LAB MICROBIOLOGY - [facility] ORDERABLES Final Result [facility] [address] Department [place] [address] * (ABNORMAL) POCT urinalysis dipstick (09/11/2018 8:28 AM CDT) Color, Urine, POC [place] Clarity, ur, POC Cloudy(A) Clear Glucose, ur, POC 250.(A) Negative mg/dL Bilirubin, ur, POC Large Negative, Small, Moderate, Large Ketones, ur, POC Small(A) Negative Specific Point Roberts, POC 1.010 1.005 - 1.030 Blood, ur, POC Small(A) Negative pH, ur, POC 5.0 5.0 - 8.0 Protein, ur, POC 3+(A) Negative Urobilinogen, urine, POC 8.0(A) 0.2 - 1.0 mg/dL Nitrite, ur, POC Positive(A ) Negative Leukocytes, ur, POC 3+(A) Negative Lot Number [id number] Urine 09/11/2018 8:28 AM CDT Sveta Isa Menendez HOUSE REGISTRY RN POINT OF CARE TEST OR DERABLES Final [...] 2 added in this encounter Care Teams Affirmative Action Officer Relationship Specialty Start Date End Date Gadiel Majano MD [address] [place] [address] PCP - General 07/06/16 documented as of this encounter
--- OUTSIDE RECORDS SUMMARY | 2024-05-11 15:20 | XMS_ITS | Encounter Summary ---
Author Organization [facility] Address [address] [facility] [address] [place] [address] Care Team Providers Care Pan Cleaner Name Role Phone Gadiel Majano MD Primary Care Provider + Reason for Referral * MRI/CAT/PET Scan (Routine) - Closed Specialty Diagnoses / Procedures Referred By Contac t Referred To Contact Radiology Diagnoses Left elbow pain Procedures MRI Elbow Left WO Contrast Lyndon Navas MD Phone: tel: fax: Referral ID Status Reason Start Date Expiration Date Visits Re quested Visits Authorized [id number] Closed 12/02/2016 01/16/2017 1 1 Encounter Details Date Type Department Care Team (Late st Contact Info) Description 12/02/2016 Orders Only [facility] Orthopedics and Sports Medicine [address] [place] [phone] Odalys Tolentino Left elbow pain (Primary Dx) Social History Tobacco Use Types Packs/Day Years Used Date Smoking Tobacco: Every Day Alcohol Use Standard Drinks/Week Comments No 0 (1 standard drink = 0.6 oz pur e alcohol) Comments Unknown Sex and Gender Information Value Date Recorded Sex Assigned at Not on file 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 [...] NAVAS Requesting: ??DR LYNDON NAVAS Requesting Fax: ??[phone] Attending Fax: ??[phone] Attending ID: ??[id number] Requesting ID: ??[id number] Report To 1 ID: ??[id number] Report To 1 Name: ??LYNDON NAVAS Report To 1 FAX: ??[phone] [facility] Order #: ??[id number] Procedure Note Miscellaneous, Not In File / Provider, Mehul, - 12/08/2016 Elbow WO L - LEFT Acc#: [id number] DATE OF EXAM: Dec 07 2016 Elbow [...] DR LYNDON NAVAS Requesting Attending Attending ID: [id number] Requesting ID: [id number] Report To 1 ID: [id number] Report To 1 Name: LYNDON NAVAS Report To 1 FAX: [phone] [facility] Order #: [id number] Lyndon Navas MD IMG MRI PROCEDURES Fin al Result documented in this encounter Visit Diagnoses Diagnosis Left elbow pain- Primary Pain in joint, upper arm Left elbow pain Pain in joint, upper arm documented in this encounter Care Teams Pan Cleaner Relationship Specialty Start Date End Date Gadiel Majano MD [address] [place] [phone] PCP - General 07/06/16 documented as of this encounter
--- OUTSIDE RECORDS SUMMARY | 2024-05-11 15:20 | XMS_ITS | Encounter Summary ---
Author Organization [facility] Healthcare Address [address] [place] [address] Care Team Providers Care Manager Helpdesk Name Role Phone Gadiel Majano MD Primary Care Provider + Encounter Details Date Type Department Care Team (Late st Contact Info) Description 05/05/2011 1:35 PM METAL HANDLER - 05/05/2011 11:59 PM METAL HANDLER Hospital Encounter [facility]CON[place]eng, [place] [address] [facility] [place] [address] [place] [phone] Urinary tract infection Social History Tobacco Use Types Packs/Day Years Used Date Smoking Tobacco: Every Day Alcohol Use Standard Drinks/Week Comments No 0 (1 standard drink = 0.6 oz pur e alcohol) Comments Unknown Sex and Gender Information Value Date Recorded Sex Assigned at Not on file 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
--- OUTSIDE RECORDS SUMMARY | 2024-05-11 15:20 | XMS_ITS | Encounter Summary ---
Author Organization [facility] Care Team Providers Care Outside Machinist Helper Name Role Phone Gadiel Majano MD Primary Care Provider + Encounter Details Date Type Department Care Team (Late st Contact Info) Description 07/08/2011 - 07/08/2011 11:59 PM MANAGER CONSUMER INSIGHTS Hospital [facility], [place]ARIO [address] [place] [address] Urinary tract infection Social History Tobacco Use Types Packs/Day Years Used Date Smoking Tobacco: Every Day Alcohol Use Standard Drinks/Week Comments No 0 (1 standard drink = 0.6 oz pur e alcohol) Comments Unknown Sex and Gender Information Value Date Recorded Sex Assigned at Not on file Legal Sex 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 MANAGER CONSUMER INSIGHTS Gender Identity Not on file Sexual Orientation Not on file documented as of this encounter Plan of Treatment Not on file documented as of this encounter Visit Diagnoses Diagnosis Urinary tract infection Urinary tract infection, site not specified documented in this encounter Care Teams Outside Machinist Helper Relationship Specialty Start Date End Date Gadiel Majano MD [address] [place] [phone] PCP - General 02/23/11 07/05/16 documented as of this encounter
--- OUTSIDE RECORDS SUMMARY | 2024-05-11 15:20 | XMS_ITS | Encounter Summary ---
Author Organization [facility] Address [address] [address] Care Team Providers Care Vacuum Cleaner Assembler Name Role Phone Gadiel Majano MD Primary Care Provider + Encounter Details Date Type Department Care Team (Latest Contact Info) Description 11/30/2016 10:21 AM CDT - 11/30/2016 11:59 PM CDT Hospital Encounter [facility] Orthopedics and Sports Medicine [address] [place] [phone] Discharge Disposition: Discharge to home or self care Social History Tobacco Use Types Packs/Day Years Used Date Smoking Tobacco: Every Day Alcohol Use Standard Drinks/Week Comments No 0 (1 standard drink = 0.6 oz pur e alcohol) Comments Unknown Sex and Gender Information Value Date Recorded Sex Assigned at Not on file Legal Sex 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 PHARMACOGNOSIST Gender Identity Not on file Sexual Orientation [...] on filedocumented in this encounter Care Teams Vacuum Cleaner Assembler Relationship Specialty Start Date End Date Gadiel Majano MD [address] [place] [phone] PCP - General 07/06/16 documented as of this encounter
--- OUTSIDE RECORDS SUMMARY | 2024-05-11 15:20 | XMS_ITS | Encounter Summary ---
Author Organization [facility] Healthcare Address [address] [place] [address] Care Team Providers Care Used Car Lot Attendant Name Role Phone Gadiel Majano MD Primary Care Provider + Reason for Referral * MRI/CAT/PET Scan (Routine) - Closed Specialty Diagnoses / Procedures Referred By Contac t Referred To Contact Radiology Diagnoses Left elbow pain Procedures MRI Elbow Left WO Contrast Lyndon Navas MD Phone: tel: fax: Referral ID Status Reason Start Date Expiration Date Visits Re quested Visits Authorized [id number] Closed 12/02/2016 01/16/2017 1 1 Encounter Details Date Type Department Care Team (Latest Contact Info) Description 12/07/2016 5:38 PM CDT - 12/07/2016 11:59 PM CDT Hospital Encounter [facility] OP INTERIM Lyndon Navas MD [address] [place] [address] Left elbow pain Discharge Disposition: Discharge to home or self care Social History Tobacco Use Types Packs/Day Years Used Date Smoking Tobacco: Every Day Alcohol Use Standard Drinks/Week Comments No 0 (1 standard drink = 0.6 oz pur e alcohol) Comments Unknown Sex and Gender Information Value Date Recorded Sex Assigned at Not on file 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 [...] NAVAS Requesting: ??DR LYNDON NAVAS Requesting Fax: ??[phone] Attending Fax: ??[phone] Attending ID: ??[id number] Requesting ID: ??[id number] Report To 1 ID: ??[id number] Report To 1 Name: ??LYNDON NAVAS Report To 1 FAX: ??[phone] [facility] Order #: ??[id number] Procedure Note Miscellaneous, Not In File / Provider, MD Mehul - 12/08/2016 MR Tarik SHAFER L - LEFT Acc#: [id number] DATE OF EXAM: Dec 07 2016 Elbow [...] DR LYNDON NAVAS Requesting Attending Attending ID: [id number] Requesting ID: [id number] Report To 1 ID: [id number] Report To 1 Name: LYNDON NAVAS Report To 1 FAX: [phone] [facility] Order #: [id number] Lyndon Navas MD IMG MRI PROCEDURES Fin al Result documented in this encounter Visit Diagnoses Diagnosis Left elbow pain Pain in joint, upper arm documented in this encounter Care Teams Used Car Lot Attendant Relationship Specialty Start Date End Date Gadiel Majano MD [address] [place] [phone] PCP - General 07/06/16 documented as of this encounter
--- OUTSIDE RECORDS SUMMARY | 2024-05-11 15:20 | XMS_ITS | Encounter Summary ---
Author Organization [facility] Healthcare Address [address] [place] [address] Care Team Providers Care External Grinder Tender Name Role Phone Gadiel Majano MD Primary Care Provider + Encounter Details Date Type Department Care Team (Late st Contact Info) Description 10/01/2017 6:55 AM CDT Lab [address] [id number] Gadiel Majano MD [address] [place] [id number] Discharge Disposition: Discharge to home or self care Social History Tobacco Use Types Packs/Day Years Used Date Smoking Tobacco: Every Day Alcohol Use Standard Drinks/Week Comments No 0 (1 standard drink = 0.6 oz pur e alcohol) Comments Unknown Sex and Gender Information Value Date Recorded Sex Assigned at Not on file 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 Gender Identity Not on file Sexual [...] last revised on 2015 Testing performed by: [facility], [address] [place] [address], [place]., [address] Blood specimen (specimen) 10/01/2017 7:00 AM CDT 10/01/2017 11:25 AM CDT Narrative ANNABELLE TAYLOR ([place]) - 10/01/2017 12:09 PM CDT Gadiel Majano MD LAB BLOOD ORDERABLES Fin al Result ANNABELLE TAYLOR ([place]) 1 [facility] [place] [address] * eGFR (10/01/2017 7:00 AM CDT) Pathologist [facility] eGFR >60 mL/min/1.7 3 m2 ANNABELLE TAYLOR ([place]) Comment: Interpretive Data Reference Interval Normal ?>/= 90 mL/min/1.73m2 Mildly decreased* ? 60 - 89 mL/min/1.73m2 Mildly to moderately decreased ?45 - 59 mL/min/1.73m2 Moderately to severely decreased ??30 - 44 mL/min/1.73m2 Severely decreased ?15 - 29 mL/min/1.73m2 Kidney Failure ?< 15 ??mL/min/1.73m2 *Relative to young adult level If -Senegalese multiply value by 1.16. Estimated glomerular filtration [...] 10/01/2017 7:13 AM CDT Narrative [facility] TAYL[facility] ([place]) - 10/01/2017 7:48 AM CDT us Gadiel Majano MD LAB BLOOD ORDERABLES Fin al Result ANNABELLE TAYLOR ([place]) 1 [facility] [place] [address] * Comprehensive metabolic panel (10/01/2017 7:00 AM [...] Fin al Result ANNABELLE TAYLOR ([place]) 1 [facility] [place] [address] * Magnesium (10/01/2017 7:00 AM CDT) Magnesium 2.0 1.6 - 2.4 mg/dL ANNABELLE TAYLOR ([place]) Blood specimen (specimen) 10/01/2017 7:00 AM CDT 10/01/2017 7:13 AM CDT Narrative ANNABELLE TAYLOR ([place]) - 10/01/2017 7:48 AM CDT us Gadiel Majano MD LAB BLOOD ORDERABLES Fin al Result Performing Organization Address [facility] de Phone Number ANNABELLE TAYLOR ([place]) 1 [facility] [place] [address] * TSH (10/01/2017 7:00 AM CDT) Thyroid Stimulating Hormone 1.49 0.30 - 5.00 mcIUnit/mL ANNABELLE TAYLOR ([place]) Blood specimen (specimen) 10/01/2017 7:00 AM CDT 10/01/2017 7:13 AM CDT Narrative ANNABELLE TAYLOR ([place]) - 10/01/2017 7:48 AM CDT us Gadiel Majano MD LAB BLOOD ORDERABLES Fin al Result Performing Organization Address [facility] de Phone Number ANNABELLE TAYLOR ([place]) 1 [facility] [place] [address] * (ABNORMAL) Lipid panel (10/01/2017 7:00 AM [...] revised on 2014. LDL, calculated 83 mg/dL [facility] ([place]) Comment: Interpretive Data Optimal [...] ORDERABLES Fin al Result Performing Organization Address [facility] Co de Phone Number [facility]OK[facility] ([place]) 1 [facility] [place] [address] * Hemoglobin A1c (10/01/2017 7:00 AM CDT) Pathologist [facility] Hgb A1C 4.9 4.0 - 5.6 % ANNABELLE TAYLOR ([place]) Estimated Average Glucose 94 mg/dL ANNABELLE TAYLOR ([place]) Comment: The ADA recommends reporting an estimated Average Glucose (eAG) with all Hemoglobin A1c results using the equation derived from a study of 507 normal and diabetic adults. ??Minority populations were underrepresented and children were not included. ?? (Diabetes Care 31:3533-8338, 2008). ??The eAG is not equivalent to a fasting glucose. Blood specimen (specimen) 10/01/2017 7:00 AM CDT 10/01/2017 7:13 AM CDT Narrative ANNABELLE TAYLOR ([place]) - 10/01/2017 7:30 AM CDT us Gadiel Majano MD LAB BLOOD ORDERABLES Fin al Result Performing Organization Address [facility] Co de Phone Number ANNABELLE TAYLOR ([place]) 1 [facility] [place] [address] * Differential, auto (10/01/2017 7:00 AM CDT) Neutrophil abs 3.6 1.7 - 6.5 K/cumm ANNABELLE TAYLOR ([place]) Imm gran abs 0.0 0.0 - 0.1 [...] Fin al Result [facility] ([place]) 1 [facility] [place] [address] * (ABNORMAL) CBC with auto differential (10/01/2017 [...] ORDERABLES Fin al Result Performing Organization Address [facility]/ZIP Co de Phone Number [facility] ([place]) 1 [facility] [place] [address] documented in this encounter Visit Diagnoses Not on filedocumented in this encounter Care Teams External Grinder Tender Relationship Specialty Start Date End Date Gadiel Majano MD [address] [place] [phone] PCP - General 07/06/16 documented as of this encounter
--- OUTSIDE RECORDS SUMMARY | 2024-05-11 15:20 | XMS_ITS | Encounter Summary ---
Author Organization 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
--- OUTSIDE RECORDS SUMMARY | 2024-05-11 15:21 | XMS_ITS | Encounter Summary ---
Author Organization [facility] Healthcare Address [address] [place] [address] Care Team Providers Care Senior Technical Manager Name Role Phone Unavailable Primary Care Provider Unavailabl e Encounter Details Date Type Department Care Team (Late st Contact Info) Description 05/24/2006 8:47 PM LEI SELLER - 05/24/2006 11:59 PM LEI SELLER Hospital Encounter [facility] Social History Tobacco Use Types Packs/Day Years Used Date Smoking Tobacco: Never Assessed Comments Unknown Sex and Gender Information Value Date Recorded Sex Assigned at Not on file Legal Sex 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 LEI SELLER Gender Identity Not on file Sexual Orientation Not on file documented as of this encounter Plan of Treatment Not on file documented as of this encounter Visit Diagnoses Not on filedocumented in this encounter
--- OUTSIDE RECORDS SUMMARY | 2024-05-11 15:21 | XMS_ITS | Encounter Summary ---
Author Organization [facility] Healthcare Address [address] [place] [address] Care Team Providers Care Etiology Teacher Name Role Phone Unavailable Primary Care Provider Unavailabl e Encounter Details Date Type Department Care Team (Late st Contact Info) Description 05/24/2006 9:13 PM CORROSION CONTROL SPECIALIST - 05/24/2006 11:44 PM CORROSION CONTROL SPECIALIST Hospital Encounter [facility] Social History Tobacco Use Types Packs/Day Years Used Date Smoking Tobacco: Never Assessed Comments Unknown Sex and Gender Information Value Date Recorded Sex Assigned at Not on file Legal Sex 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 CORROSION CONTROL SPECIALIST Gender Identity Not on file Sexual Orientation Not on file documented as of this encounter Plan of Treatment Not on file documented as of this encounter Visit Diagnoses Not on filedocumented in this encounter
--- OUTSIDE RECORDS SUMMARY | 2024-05-11 15:21 | XMS_ITS | Encounter Summary ---
Author Organization [facility] Healthcare Address [address] [place] [address] Care Team Providers Care Sanipractic Physician Name Role Phone Unavailable Primary Care Provider Unavailabl e Encounter Details Date Type Department Care Team (Late st Contact Info) Description 07/12/2006 12:01 AM FOUNDRY FINISHER - 07/21/2006 11:59 PM FOUNDRY FINISHER Hospital Encounter [facility] Pooja Nichols MD [address] [place] [address] [address] Social History Tobacco Use Types Packs/Day Years Used Date Smoking Tobacco: Never Assessed Comments Unknown Sex and Gender Information Value Date Recorded Sex Assigned at Not on file Legal Sex 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 FOUNDRY FINISHER Gender Identity Not on file Sexual Orientation Not on file documented as of this encounter Plan of Treatment Not on file documented as of this encounter Visit Diagnoses Not on filedocumented in this encounter
--- OUTSIDE RECORDS SUMMARY | 2024-05-11 15:21 | XMS_ITS | Encounter Summary ---
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 Name Role Phone Unavailable Primary Care Provider Unavailabl e Encounter Details Date Type Department Care Team (Late st Contact Info) Description 06/16/2006 6:23 PM GROCERY STOCKER - 06/16/2006 11:59 PM GROCERY STOCKER Hospital Encounter [facility] Pooja Nichols MD [address] [place] [address] [address] Social History Tobacco Use Types Packs/Day Years Used Date Smoking Tobacco: Never Assessed Comments Unknown Sex and Gender Information Value Date Recorded Sex Assigned at Not on file Legal Sex 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 GROCERY STOCKER Gender Identity Not on file Sexual Orientation Not on file documented as of this encounter Plan of Treatment Not on file documented as of this encounter Visit Diagnoses Not on filedocumented in this encounter
--- OUTSIDE RECORDS SUMMARY | 2024-05-11 15:21 | XMS_ITS | Encounter Summary ---
Author Organization [facility] Healthcare Address [address] [place] [address] Care Team Providers Care Chain Carrier Name Role Phone Unavailable Primary Care Provider Unavailabl e Encounter Details Date Type Department Care Team (Late st Contact Info) Description 07/22/2006 12:01 AM SPRING WINDER - 08/21/2006 11:59 PM CDT Hospital Encounter [facility] KINDRA Jacobson, Pooja Whitt MD [address] [place] [address] [address] Social History Tobacco Use Types Packs/Day Years Used Date Smoking Tobacco: Never Assessed Comments Unknown Sex and Gender Information Value Date Recorded Sex Assigned at Not on file Legal Sex 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 SPRING WINDER Gender Identity Not on file Sexual Orientation Not on file documented as of this encounter Plan of Treatment Not on file documented as of this encounter Visit Diagnoses Not on filedocumented in this encounter
== END 2024-05-07 08:11 | disposition home or self-care (01) ==
PROVIDERS: Emergency Provider Student in an Organized Health Care Education/Training Program; PCP Internal Medicine
DX: R56.9 Unspecified convulsions (principal)
CPT/HCPCS: 36415; 70450; 71045; 80053; 80143; 80179; 80307; 81003; 81025; 82077; 82550; 83605; 84443; 85025; 85610; 85730; 93005; 96365; 96366; 96375; 99284; J0780; J1200; J3475; J7030